=== PATIENT | female | born 1955 | race Caucasian/White ===

== ENCOUNTER 2016-11-14 07:55 | Inpatient (IN) | payer OTHER ==
[2016-11-14] MEDS ORDERED: SODIUM CHLORIDE 0.9% 1,000 ML IV STA ×2 (08:11→10:12)
[2016-11-14] MEDS ORDERED: LORazepam 2 MG/ML SYRINGE IV STA (08:11)
[2016-11-14] MEDS ORDERED: methylPREDNISolone SOD SUCCI 125 MG/2 ML VIAL IV STA (08:11)
[2016-11-14] MEDS ORDERED: IPRATROPIUM-ALBUTEROL 3 ML NEB INHALATION STA (08:11)
[2016-11-14] MEDS: LORazepam 2 MG/ML SYRINGE IV STA ×2 (08:13→08:30)
[2016-11-14 08:42] LABS: ABG HCO3 24 mmol/L (21-25); ABG PCO2 49 mmHg (35-45); ABG PO2 197 mmHg (83-108)
[2016-11-14 08:43] LABS: ABG Base Excess -1.8 mmol/L; ABG TCO2 25 mmol/L (19-24)
[2016-11-14 08:48] LABS: Basophils % (A) 0 %; CH 29.9; CHCM 31.5; Eosinophils % (A) 0 %; HCT 50.3 % (34.0-46.0); HGB 16.3 gm/dL (11.4-16.0); Hypochromasia Slight; Luc # (Auto) 0.13; Luc % (Auto) 2; Lymphocytes # (A) 0.7 k/uL (1.0-4.8); Lymphocytes % (A) 8 %; MCH 30.8 pg (25.0-35.0); MCHC 32.3 g/dL (31.0-37.0); MCV 95.3 fL (80.0-100.0); Mean Platelet Volume 7.9; Monocytes # (A) 0.4 k/uL (0-1.0); Monocytes % (A) 5 %; Neutrophils # (A) 7.1 k/uL (1.3-7.7); Neutrophils % (A) 84 %; RBC 5.28 m/uL (3.80-5.40); RDW 13.6 % (11.5-15.5); WBC 8.5 k/uL (3.8-10.6); WBC (Perox) 8.27
[2016-11-14 08:56] LABS: INR 1.1 (<1.1); Partial Thromboplastin Time 28.4 sec (22.0-30.0); Prothrombin Time 11.2 sec (9.0-12.0)
--- NOTE | 2016-11-14 09:03 | XR ---
EXAMINATION TYPE: XR chest 1V portable DATE OF EXAM: 11/14/2016 8:58 AM Comparison: 10/10/2015 Clinical History: 61-year-old female with sob. Findings: The heart is upper limits of normal in size. After cirrhotic arch calcifications. There is hyperinfla tion with mild diffuse interstitial prominence though interstitial densities appear slightly more sit uated from prior exam. No jess consolidation or significant pleural effusion seen. Bilateral nipple shadows. Impression: 1. COPD and borderline heart size. 2. Interstitial densities appear slightly more accentuated. Correlate for possibility of superimposed bronchitis or mild pulmonary vascular congestion.
[2016-11-14 09:16] LABS: Creatine Kinase MB 1.5 ng/mL (0.0-2.4); Troponin I 0.025 ng/mL (0.000-0.034)
[2016-11-14 09:32] LABS: ALT 31 U/L (9-52); AST 24 U/L (14-36); Alkaline Phosphatase 90 U/L (38-126); Anion Gap 10 mmol/L; Blood Urea Nitrogen 14 mg/dL (7-17); Calcium 8.9 mg/dL (8.4-10.2); Carbon Dioxide 30 mmol/L (22-30); Chloride 94 mmol/L (98-107); Glucose 120 mg/dL (74-99); Non-African American GFR(MDRD) >60 (>60 ml/min/1.73 sqM); Potassium 5.5 mmol/L (3.5-5.1); Sodium 134 mmol/L (137-145); Total Bilirubin 0.5 mg/dL (0.2-1.3); Total Protein 7.4 g/dL (6.3-8.2)
[2016-11-14] MEDS ORDERED: LEVOFLOXACIN 750MG-D5W PMX 750 MG in DEXTROSE/WATER 1 150ML.BAG IVPB STA (10:11)
--- NOTE | 2016-11-14 10:48 | CT ---
EXAMINATION TYPE: CT brain wo con DATE OF EXAM: 11/14/2016 10:39 AM COMPARISON: Previous study dated 07/31/2013 HISTORY: Patient poor historian. Patient unresponsive at time of exam. Patient "took too many pain pills," per family. CT DLP: 850 mGycm Automated exposure control for dose reduction was used. FINDINGS: Central structures are midline. There is no evidence of hydrocephalus. No acute focal lesion, mass ef fect or midline shift is seen. I do not see evidence of intracranial blood There is an air-fluid level in the right sphenoid sinus. The remaining paranasal sinuses and mastoids are clear. IMPRESSION: 1. NO ACUTE INTRACRANIAL ABNORMALITY. 2. ACUTE, RIGHT SPHENOID SINUSITIS.
[2016-11-14] MEDS ORDERED: NALOXONE 0.4 MG/ML 1 ML VIAL IV STA (10:54)
[2016-11-14] MEDS ORDERED: PROPOFOL 500 MG in EMPTY BAG 1 BAG IV ONE (11:43)
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
[2016-11-14] MEDS ORDERED: SUCCINYLCHOLINE CHLORIDE VIAL 200 MG/10 ML VIAL IV STA (11:53)
[2016-11-14] MEDS ORDERED: ETOMIDATE 2 MG/ML 10 ML VIAL IVP STA (11:53)
[2016-11-14] MEDS ORDERED: ARTIFICIAL TEARS-HYPROMELLOSE DROPS 15 ML BTL BOTH EYES PRN (12:08)
[2016-11-14] MEDS ORDERED: FLUTICASONE 50MCG/SPRAY NASAL 16GM EA NOSTRIL PRN (12:13)
[2016-11-14] MEDS ORDERED: PANTOPRAZOLE 40 MG/10 ML VIAL IV SCH (12:15)
[2016-11-14 12:33] LABS: Appearance,Urine Clear (Clear); Bilirubin,Urine Negative (Negative); Glucose,Urine (UA) Negative (Negative); Ketones,Urine Negative (Negative); Leukocyte Esterase,Urine Negative (Negative); Mucus,Urine Rare /hpf; Nitrite,Urine Negative (Negative); PH, Urine 5.5 (5.0-8.0); Particle Count 1549; Protein,Urine 1+ (Negative); RBC,Urine 2 /hpf (0-5); Specific Gravity,Urine 1.023 (1.001-1.035); UA Billing (MACRO vs. MICRO) MICRO; WBC,Urine 1 /hpf (0-5)
[2016-11-14] MEDS ORDERED: ALBUTEROL NEBULIZED 2.5 MG/3 ML INHALATION STA (12:43)
--- NOTE | 2016-11-14 12:46 | XR ---
EXAMINATION TYPE: XR chest 1V portable DATE OF EXAM: 11/14/2016 12:27 PM HISTORY: Verify placement. REFERENCE: Previous study dated 11/14/2016. FINDINGS: The patient has been intubated. ET tube is in satisfactory position with its tip approximat helga 4.7 cm above the archana. An NG tube is been placed. Its tip crosses the diaphragm but is not visu alized. The lungs are overinflated. Heart size is upper limits of normal. I do not see evidence of pneumonia or edema. No pleural fluid is seen. IMPRESSION: 1. SATISFACTORY ET TUBE PLACEMENT. 2. COPD. 3. BORDERLINE CARDIOMEGALY.
[2016-11-14 12:54] LABS: ABG Base Excess 1.7 mmol/L; ABG HCO3 28 mmol/L (21-25); ABG PCO2 66 mmHg (35-45); ABG PH 7.26 (7.35-7.45); ABG PO2 302 mmHg (83-108); ABG TCO2 30 mmol/L (19-24)
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
[2016-11-14] MEDS ORDERED: SODIUM CHLORIDE 0.9% 250 ML IV STA (13:47)
[2016-11-14] MEDS: methylPREDNISolone SOD SUCCI 125 MG/2 ML VIAL IV SCH ×2 (14:15→19:05)
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
[2016-11-14] MEDS: ENOXAPARIN 40 MG/0.4 ML SYRINGE SQ SCH (16:27)
[2016-11-14 17:01] LABS: Glucose,Whole Blood 139 mg/dL (75-99)
[2016-11-14] MEDS: PROPOFOL 500 MG in EMPTY BAG 1 BAG IV SCH ×2 (18:01→22:49)
[2016-11-14] MEDS ORDERED: INSULIN LISPRO (humaLOG) 300 UNIT/3 ML VIAL SQ SCH (19:15)
[2016-11-14] MEDS ORDERED: BECLOMETHASONE DIP 80 MCG/PUFF INHALER INHALATION SCH (20:00)
[2016-11-14] MEDS: CHLORHEXIDINE GLUCONATE 15 ML CUP MUCOUS MEM SCH (22:05)
[2016-11-14] MEDS: PANTOPRAZOLE 40 MG/10 ML VIAL IV SCH (22:50)
[2016-11-14 22:53] LABS: CH 30.1; CHCM 32.2; HCT 48.7 % (34.0-46.0); HDW 2.58; HGB 15.9 gm/dL (11.4-16.0); MCH 30.8 pg (25.0-35.0); MCHC 32.7 g/dL (31.0-37.0); MCV 94.1 fL (80.0-100.0); Mean Platelet Volume 7.7; RBC 5.17 m/uL (3.80-5.40); RDW 13.8 % (11.5-15.5); WBC 3.9 k/uL (3.8-10.6)
[2016-11-14 23:59] LABS: Glucose,Whole Blood 113 mg/dL (75-99)
[2016-11-15] MEDS: INSULIN LISPRO (humaLOG) 300 UNIT/3 ML VIAL SQ SCH ×4 (00:08→18:05)
[2016-11-15] MEDS: methylPREDNISolone SOD SUCCI 125 MG/2 ML VIAL IV SCH ×4 (00:24→18:06)
[2016-11-15] MEDS: PROPOFOL 500 MG in EMPTY BAG 1 BAG IV SCH ×2 (04:22→07:53)
[2016-11-15 04:26] LABS: ABG Base Excess 2.9 mmol/L; ABG HCO3 27 mmol/L (21-25); ABG PCO2 44 mmHg (35-45); ABG PH 7.41 (7.35-7.45); ABG PO2 149 mmHg (83-108); ABG TCO2 29 mmol/L (19-24)
[2016-11-15 04:33] LABS: Basophils # (A) 0.1 k/uL (0-0.2); Basophils % (A) 1 %; CH 30.3; CHCM 32.3; Eosinophils % (A) 0 %; HCT 50.7 % (34.0-46.0); HDW 2.54; HGB 16.4 gm/dL (11.4-16.0); Luc # (Auto) 0.07; Luc % (Auto) 2; Lymphocytes # (A) 0.8 k/uL (1.0-4.8); Lymphocytes % (A) 18 %; MCH 30.4 pg (25.0-35.0); MCHC 32.2 g/dL (31.0-37.0); MCV 94.4 fL (80.0-100.0); Mean Platelet Volume 7.7; Monocytes # (A) 0.3 k/uL (0-1.0); Monocytes % (A) 7 %; Neutrophils % (A) 72 %; RBC 5.38 m/uL (3.80-5.40); RDW 13.9 % (11.5-15.5); WBC 4.1 k/uL (3.8-10.6); WBC (Perox) 3.94
[2016-11-15 04:44] LABS: Anion Gap 7 mmol/L; Blood Urea Nitrogen 11 mg/dL (7-17); Carbon Dioxide 29 mmol/L (22-30); Chloride 101 mmol/L (98-107); Glucose 121 mg/dL (74-99); Magnesium 1.6 mg/dL (1.6-2.3); Non-African American GFR(MDRD) >60 (>60 ml/min/1.73 sqM); Phosphorous 3.4 mg/dL (2.5-4.5); Potassium 4.7 mmol/L (3.5-5.1); Sodium 137 mmol/L (137-145)
[2016-11-15] MEDS ORDERED: Magnesium Replacement Protocol 1 EACH MISC MISCELLANE PRN (05:58)
[2016-11-15 06:42] LABS: Glucose,Whole Blood 110 mg/dL (75-99)
[2016-11-15] MEDS: MAGNESIUM SULFATE-D5W PMX 1 GM in DEXTROSE/WATER 1 100ML.BAG IVPB SCH ×2 (06:42→07:54)
[2016-11-15] MEDS: IPRATROPIUM-ALBUTEROL 3 ML NEB INHALATION PRN ×3 (07:38→18:21)
[2016-11-15] MEDS: PANTOPRAZOLE 40 MG/10 ML VIAL IV SCH (07:55)
[2016-11-15] MEDS ORDERED: TIOTROPIUM 18 MCG/PUFF INHALER INHALATION SCH (08:00)
[2016-11-15] MEDS: ENOXAPARIN 40 MG/0.4 ML SYRINGE SQ SCH (08:01)
--- NOTE | 2016-11-15 08:23 | XR ---
EXAMINATION TYPE: XR chest 1V portable DATE OF EXAM: 11/15/2016 6:55 AM COMPARISON: 11/14/2016 INDICATION: Difficulty breathing line placement TECHNIQUE: Single frontal view of the chest is obtained. FINDINGS: The heart size is normal. The pulmonary vasculature is normal. The lungs are clear. Endotracheal tube and nasogastric tube persist stable in position. IMPRESSION: 1. No acute pulmonary process. 2. Lines and catheters discussed above.
--- NOTE | 2016-11-15 09:27 | P.PN ---
Subjective 61-year-old female patient who presented to the emergency department after being found obtunded and unresponsive by her son. I can't understand that the patient's has been admitted to our ICU with respiratory failure. The patient accordingly was abusing her narcotic medication and she has a history of doing so. Based on the pill count, the patient has taken excessive amount of morphine 15 mg and [place] 10 mg and she was found to be unresponsive at home. EMS found the patient hypoxic with a pulse ox of around 50% and she was placed on 100% nonrebreather facemask. She was also given Narcan. The same was done in the emergency department here the patient became more responsive yet more agitated. At the later stage patient became more short of breath and she started getting more hypoxic. At that point she was intubated and placed on a mechanical ventilator and pulmonary and critical care consultation was obtained I saw the patient in the emergency department. She was sedated with Diprivan. She was hemodynamically stable. She was withdrawing to painful stimuli only and she was able to move all 4 extremities to deep painful stimuli. She was in a mechanical ventilator and she was having frothy rest or secretions. The patient was an assist-control mode at the rate of 14, tidal volume 450, FiO2 of 100% and PEEP of 5. The peak airway pressure was around 48 with a static pressure of around 16. Blood gases showed a component of hypercapnic respiratory failure. There chest x-ray showed adequate positioning of the ET tube. Some increased interstitial markings could be related to early CHF versus chronic bronchitis. No clear-cut history of aspiration. No consolidation or airspace disease. CAT scan of the brain was done and showed no acute abnormalities. No seizure activity has been noted. The patient is known to have COPD. She was also known to have chronic narcotic medication abuse. On 11/15/2016 I'm seeing this patient in follow-up. The patient got moved to the intensive care unit. Further discussion with the family and the son mated less clear whether the patient had a clear-cut drug overdose. Apparently the pill count was incorrect and the patient probably was taken appropriate doses of narcotic medication. Nevertheless there is also benzodiazepines in her urine drug screen and it's possibly that both narcotics and benzos contribute to respiratory failure. The patient was quite bronchospastic and her pressures were significantly elevated post intubation. Initial peak airway pressure was above 45. She was treated with bronchodilators and steroids throughout the past 12 hours and currently her peak air pressures down to 26 and there is no significant ROP. Chest x-ray shows hyperinflation and the tube is in good location there is no evidence of any acute pulmonary infiltration or pneumonia. The patient is on Diprivan drip for sedation. The patient has remained hemodynamically stable. Urine output is approximately 50 mL an hour. Otherwise no other significant events over the past12 hours. Objective - Vital Signs Vital signs: Vital Signs Temp 98 F 11/15/16 04:00 Pulse 72 11/15/16 08:02 Resp 15 11/15/16 06:00 BP 146/90 11/15/16 06:00 Pulse Ox 98 11/15/16 06:00 Intake & Output 11/14/16 11/15/16 11/15/16 18:59 06:59 18:59 Intake Total 089.437 4399.168 347.827 Output Total 875 1050 170 Balance -661.079 239.168 177.827 Weight 46.3 kg 46.6 kg Intake: Intake, IV Titration 044.306 4529.168 347.827 Amount Magnesium Sulfate-D5w Pmx 200 1 gm In Dextrose/Water 1 100ml.bag @ 100 mls/hr IVPB Q1H ROXY Rx#: [id number] Propofol 500 mg In Empty 13.921 Bag 1 bag @ Titrate IV . Q0M ONE Rx#:[id number] Propofol 500 mg In Empty 89.168 47.827 Bag 1 bag @ Titrate IV . Q0M ROXY Rx#:[id number] Sodium Chloride 0.9% 1, 200 1200 100 000 ml @ 100 mls/hr IV . Q10H STA Rx#:[id number] Output: Gastric Drainage 250 Urine 875 800 170 Other: Voiding Method Indwelling Catheter Indwelling Catheter Indwelling Catheter - Exam Head exam was generally normal. There was no scleral icterus or corneal arcus. Mucous membranes were moist. The patient has an orogastric and orotracheal tube are both in place.Neck was supple and without jugular venous distension, thyromegaly, or carotid bruits. Carotids were easily palpable bilaterally. There was no adenopathy. Lung sounds are diminished bilaterally along with some few scattered expiratory wheeze.Cardiac exam revealed the PMI to be normally situated and sized. The rhythm was regular and no extrasystoles were noted during several minutes of auscultation. The first and second heart sounds were normal and physiologic splitting of the second heart sound was noted. There were no murmurs, rubs, clicks, or gallops.Abdominal exam revealed normal bowel sounds. The abdomen was soft, non-tender, and without masses, organomegaly , or appreciable enlargement of the abdominal aorta.Examination of the extremities revealed easily palpable radial, femoral and pedal pulses. There was no cyanosis, clubbing or edema. Neurologically, pupils are equal and reactive to light around 3 mm in size. No nystagmus. No facial asymmetry. She has a good cough and a gag reflex. She is moving all 4 extremities and deep painful stimuli. - Labs CBC & Chem 7: 11/15/16 04:20 11/15/16 04:20 Labs: Abnormal Lab Results - Last 24 Hours (Table) 11/14/16 11/14/16 11/14/16 Range/Units 12:30 16:41 22:25 Hgb (11.4-16.0) gm/dL Hct 48.7 H (34.0-46.0) % Plt Count 149 L (150-450) k/uL Lymphocytes # (1.0-4.8) k/uL ABG pH 7.26 L (7.35-7.45) ABG pCO2 66 H (35-45) mmHg ABG pO2 302 H (83-108) mmHg ABG HCO3 28 H (21-25) mmol/L ABG Total CO2 30 H (19-24) mmol/L ABG O2 Saturation 100.0 H (94-97) % Creatinine (0.52-1.04) mg/dL Glucose (74-99) mg/dL POC Glucose (mg/dL) 139 H (75-99) mg/dL 11/14/16 11/15/16 11/15/16 Range/Units 23:57 04:08 04:20 Hgb 16.4 H (11.4-16.0) gm/dL Hct 50.7 H (34.0-46.0) % Plt Count 141 L (150-450) k/uL Lymphocytes # 0.8 L (1.0-4.8) k/uL ABG pH (7.35-7.45) ABG pCO2 (35-45) mmHg ABG pO2 149 H (83-108) mmHg ABG HCO3 27 H (21-25) mmol/L ABG Total CO2 29 H (19-24) mmol/L ABG O2 Saturation 99.0 H (94-97) % Creatinine (0.52-1.04) mg/dL Glucose (74-99) mg/dL POC Glucose (mg/dL) 113 H (75-99) mg/dL 11/15/16 11/15/16 Range/Units 04:20 06:41 Hgb (11.4-16.0) gm/dL Hct (34.0-46.0) % Plt Count (150-450) k/uL Lymphocytes # (1.0-4.8) k/uL ABG pH (7.35-7.45) ABG pCO2 (35-45) mmHg ABG pO2 (83-108) mmHg ABG HCO3 (21-25) mmol/L ABG Total CO2 (19-24) mmol/L ABG O2 Saturation (94-97) % Creatinine 0.33 L (0.52-1.04) mg/dL Glucose 121 H (74-99) mg/dL POC Glucose (mg/dL) 110 H (75-99) mg/dL Assessment and Plan Plan: Assessment 1 acute respiratory failure, secondary to COPD exacerbation addition to some contribution from various drugs including opiates and benzodiazepines. Patient is less spastic and wheezy. Airway pressures are improved compared to yesterday. The patient was treated with a combination of bronchodilators and steroids. She is also covered with empiric antibiotics. Today's chest x-ray is showing hyperinflation and it's clear. 2 altered mental status secondary to above, CAT scan of the brain is negative 3 chronic intake of narcotic medications for pain control in addition to benzodiazepines. Rule out possibility of drug intoxication/overdose 4 COPD 5 acute hypercapnic respiratory failure. This is essentially due to narcotic overdose yet even after intubating dictation the patient continued to have a component of hypercapnia and respiratory acidosis along with elevated airway pressures. I think is an obvious component of COPD exacerbation in addition. 6 smoker 7 anxiety/depression 8 chronic hepatitis C viral infection of the liver 9 chronic skeletal pain along with narcotic medication dependence. Plan Stop the Diprivan. Check consider weaning parameters once the patient is awake. Give the patient is point is breathing trial with a pressure support of 5 and PEEP of 5 and repeat the blood gases. If adequate, the patient be extubated today. Continue bronchodilators. Continue the steroids. Condition is critical still in the patient will be kept in ICU even if extubated. There is a critically care evaluation that was done in 35min and te family was updated. Time with Patient: Greater than 30
[2016-11-15 10:45] VITALS: BMI 17.6
[2016-11-15] MEDS: LEVOFLOXACIN 750MG-D5W PMX 750 MG in DEXTROSE/WATER 1 150ML.BAG IVPB SCH (10:47)
--- NOTE | 2016-11-15 11:11 | P.PN ---
Subjective Patient is still intubated. She is having a weaning trial this morning. No events overnight. Objective - Vital Signs Vital signs: Vital Signs Temp 98.0 F 11/15/16 08:00 Pulse 76 11/15/16 10:00 Resp 23 11/15/16 10:00 BP 149/88 11/15/16 10:00 Pulse Ox 100 11/15/16 10:00 Intake & Output 11/14/16 11/15/16 11/15/16 18:59 06:59 18:59 Intake Total 685.412 6700.168 347.827 Output Total 875 1050 170 Balance -661.079 239.168 177.827 Weight 46.3 kg 46.6 kg 46.6 kg Intake: Intake, IV Titration 249.351 7308.168 347.827 Amount Magnesium Sulfate-D5w Pmx 200 1 gm In Dextrose/Water 1 100ml.bag @ 100 mls/hr IVPB Q1H ROXY Rx#: [id number] Propofol 500 mg In Empty 13.921 Bag 1 bag @ Titrate IV . Q0M ONE Rx#:[id number] Propofol 500 mg In Empty 89.168 47.827 Bag 1 bag @ Titrate IV . Q0M ROXY Rx#:[id number] Sodium Chloride 0.9% 1, 200 1200 100 000 ml @ 100 mls/hr IV . Q10H STA Rx#:[id number] Output: Gastric Drainage 250 Urine 875 800 170 Other: Voiding Method Indwelling Catheter Indwelling Catheter Indwelling Catheter - Exam General: The patient is intubated. She appeared agitated. Eye: there is normal conjunctiva bilaterally. Neck: The neck is supple, there is no JVD. Cardiovascular: Normal S1-S2, no S3-S4, no murmurs. Respiratory: Lungs clear to auscultation bilaterally Gastrointestinal: Abdomen is soft, nontender Musculoskeletal: There is no pedal edema. Skin: Skin is warm and dry - Labs CBC & Chem 7: 11/15/16 04:20 11/15/16 04:20 Labs: Abnormal Lab Results - Last 24 Hours (Table) 11/14/16 11/14/16 11/14/16 Range/Units 12:30 16:41 22:25 Hgb (11.4-16.0) gm/dL Hct 48.7 H (34.0-46.0) % Plt Count 149 L (150-450) k/uL Lymphocytes # (1.0-4.8) k/uL ABG pH 7.26 L (7.35-7.45) ABG pCO2 66 H (35-45) mmHg ABG pO2 302 H (83-108) mmHg ABG HCO3 28 H (21-25) mmol/L ABG Total CO2 30 H (19-24) mmol/L ABG O2 Saturation 100.0 H (94-97) % Creatinine (0.52-1.04) mg/dL Glucose (74-99) mg/dL POC Glucose (mg/dL) 139 H (75-99) mg/dL 11/14/16 11/15/16 11/15/16 Range/Units 23:57 04:08 04:20 Hgb 16.4 H (11.4-16.0) gm/dL Hct 50.7 H (34.0-46.0) % Plt Count 141 L (150-450) k/uL Lymphocytes # 0.8 L (1.0-4.8) k/uL ABG pH (7.35-7.45) ABG pCO2 (35-45) mmHg ABG pO2 149 H (83-108) mmHg ABG HCO3 27 H (21-25) mmol/L ABG Total CO2 29 H (19-24) mmol/L ABG O2 Saturation 99.0 H (94-97) % Creatinine (0.52-1.04) mg/dL Glucose (74-99) mg/dL POC Glucose (mg/dL) 113 H (75-99) mg/dL 11/15/16 11/15/16 Range/Units 04:20 06:41 Hgb (11.4-16.0) gm/dL Hct (34.0-46.0) % Plt Count (150-450) k/uL Lymphocytes # (1.0-4.8) k/uL ABG pH (7.35-7.45) ABG pCO2 (35-45) mmHg ABG pO2 (83-108) mmHg ABG HCO3 (21-25) mmol/L ABG Total CO2 (19-24) mmol/L ABG O2 Saturation (94-97) % Creatinine 0.33 L (0.52-1.04) mg/dL Glucose 121 H (74-99) mg/dL POC Glucose (mg/dL) 110 H (75-99) mg/dL Assessment and Plan Plan: 1. Acute hypoxic and hypercapnic respiratory failure 2. Acute bacterial bronchitis: On Levaquin 3. Acute exacerbation of underlying COPD 4. Suspected opiate overdose: With no evidence of patient taking more than what prescribed 5. Paroxysmal atrial fibrillation: heart rate well controlled. Not a candidate for anticoagulation for history of heavy bleeding. Continue aspirin daily. 6. Chronic hepatitis C 7. Degenerative joint disease of the lumbar spine with multiple disc bulging at multiple levels: Maintained chronically on morphine sulfate ER 15 mg twice daily and [place] 4 times a day as needed. I would down escalate her regimen 8. GI and DVT prophylaxis Today, I reviewed her medication list. Continue IV steroids and bronchodilator. Continue ICU care. Weaning trial this morning. Continue Levaquin for now. Repeat chest x-ray within the next day or 2. Continue supportive care otherwise. Repeat lab work in the morning. I would continue to follow up on her closely.
[2016-11-15 12:01] LABS: Glucose,Whole Blood 111 mg/dL (75-99)
[2016-11-15 12:36] LABS: ABG PH 7.37 (7.35-7.45)
[2016-11-15 12:37] LABS: ABG Base Excess 4.6 mmol/L; ABG HCO3 30 mmol/L (21-25); ABG PCO2 53 mmHg (35-45); ABG PO2 117 mmHg (83-108); ABG TCO2 31 mmol/L (19-24)
[2016-11-15 13:09] LABS: Hemoglobin A1C 5.3 % (4.2-6.1)
[2016-11-15] MEDS: CHLORHEXIDINE GLUCONATE 15 ML CUP MUCOUS MEM SCH (14:02)
[2016-11-15] MEDS ORDERED: HYDROcodone/APAP 10-325MG 1 EACH TAB PO PRN (14:26)
[2016-11-15 18:04] LABS: Glucose,Whole Blood 98 mg/dL (75-99)
[2016-11-15] MEDS ORDERED: DILTIAZEM CD 120 MG CAP.ER.24H PO STA (18:48)
[2016-11-15] MEDS: HYDROcodone/APAP 10-325MG 1 EACH TAB PO PRN (19:47)
[2016-11-15] MEDS: ALPRAZolam 0.25 MG TAB PO PRN (20:11)
[2016-11-16] MEDS: PANTOPRAZOLE 40 MG/10 ML VIAL IV SCH ×2 (00:52→09:21)
[2016-11-16 00:53] LABS: Glucose,Whole Blood 124 mg/dL (75-99)
[2016-11-16] MEDS: INSULIN LISPRO (humaLOG) 300 UNIT/3 ML VIAL SQ SCH ×5 (00:53→20:26)
[2016-11-16] MEDS: methylPREDNISolone SOD SUCCI 125 MG/2 ML VIAL IV SCH ×3 (00:53→11:34)
[2016-11-16] MEDS: HYDROcodone/APAP 10-325MG 1 EACH TAB PO PRN ×4 (01:33→20:55)
[2016-11-16] MEDS: IPRATROPIUM-ALBUTEROL 3 ML NEB INHALATION PRN ×5 (03:09→21:20)
[2016-11-16 05:08] LABS: Basophils % (A) 0 %; CH 29.6; CHCM 30.7; Eosinophils % (A) 0 %; HCT 47.1 % (34.0-46.0); HDW 2.53; HGB 15.2 gm/dL (11.4-16.0); Hypochromasia Slight; Luc # (Auto) 0.08; Luc % (Auto) 1; Lymphocytes # (A) 0.5 k/uL (1.0-4.8); Lymphocytes % (A) 7 %; MCH 31.3 pg (25.0-35.0); MCHC 32.3 g/dL (31.0-37.0); MCV 96.9 fL (80.0-100.0); Mean Platelet Volume 7.9; Monocytes # (A) 0.3 k/uL (0-1.0); Monocytes % (A) 5 %; Neutrophils # (A) 5.5 k/uL (1.3-7.7); Neutrophils % (A) 86 %; RBC 4.86 m/uL (3.80-5.40); RDW 13.9 % (11.5-15.5); WBC 6.3 k/uL (3.8-10.6); WBC (Perox) 6.35
[2016-11-16 05:30] LABS: Anion Gap 6 mmol/L; Blood Urea Nitrogen 13 mg/dL (7-17); Calcium 8.9 mg/dL (8.4-10.2); Carbon Dioxide 33 mmol/L (22-30); Chloride 100 mmol/L (98-107); Glucose 125 mg/dL (74-99); Magnesium 1.8 mg/dL (1.6-2.3); Non-African American GFR(MDRD) >60 (>60 ml/min/1.73 sqM); Phosphorous 3.6 mg/dL (2.5-4.5); Potassium 4.3 mmol/L (3.5-5.1); Sodium 139 mmol/L (137-145)
[2016-11-16] MEDS ORDERED: Magnesium Replacement Protocol 1 EACH MISC MISCELLANE PRN (07:02)
[2016-11-16 08:04] LABS: Glucose,Whole Blood 166 mg/dL (75-99)
[2016-11-16] MEDS: MAGNESIUM SULFATE-D5W PMX 1 GM in DEXTROSE/WATER 1 100ML.BAG IVPB SCH ×2 (09:16→11:33)
[2016-11-16] MEDS: ENOXAPARIN 40 MG/0.4 ML SYRINGE SQ SCH (09:21)
[2016-11-16] MEDS: LEVOFLOXACIN 750MG-D5W PMX 750 MG in DEXTROSE/WATER 1 150ML.BAG IVPB SCH ×2 (09:23→11:31)
--- NOTE | 2016-11-16 09:55 | P.PN ---
Subjective 61-year-old female patient who presented to the emergency department after being found obtunded and unresponsive by her son. I can't understand that the patient's has been admitted to our ICU with respiratory failure. The patient accordingly was abusing her narcotic medication and she has a history of doing so. Based on the pill count, the patient has taken excessive amount of morphine 15 mg and [place] 10 mg and she was found to be unresponsive at home. EMS found the patient hypoxic with a pulse ox of around 50% and she was placed on 100% nonrebreather facemask. She was also given Narcan. The same was done in the emergency department here the patient became more responsive yet more agitated. At the later stage patient became more short of breath and she started getting more hypoxic. At that point she was intubated and placed on a mechanical ventilator and pulmonary and critical care consultation was obtained I saw the patient in the emergency department. She was sedated with Diprivan. She was hemodynamically stable. She was withdrawing to painful stimuli only and she was able to move all 4 extremities to deep painful stimuli. She was in a mechanical ventilator and she was having frothy rest or secretions. The patient was an assist-control mode at the rate of 14, tidal volume 450, FiO2 of 100% and PEEP of 5. The peak airway pressure was around 48 with a static pressure of around 16. Blood gases showed a component of hypercapnic respiratory failure. There chest x-ray showed adequate positioning of the ET tube. Some increased interstitial markings could be related to early CHF versus chronic bronchitis. No clear-cut history of aspiration. No consolidation or airspace disease. CAT scan of the brain was done and showed no acute abnormalities. No seizure activity has been noted. The patient is known to have COPD. She was also known to have chronic narcotic medication abuse. On 11/15/2016 I'm seeing this patient in follow-up. The patient got moved to the intensive care unit. Further discussion with the family and the son mated less clear whether the patient had a clear-cut drug overdose. Apparently the pill count was incorrect and the patient probably was taken appropriate doses of narcotic medication. Nevertheless there is also benzodiazepines in her urine drug screen and it's possibly that both narcotics and benzos contribute to respiratory failure. The patient was quite bronchospastic and her pressures were significantly elevated post intubation. Initial peak airway pressure was above 45. She was treated with bronchodilators and steroids throughout the past 12 hours and currently her peak air pressures down to 26 and there is no significant ROP. Chest x-ray shows hyperinflation and the tube is in good location there is no evidence of any acute pulmonary infiltration or pneumonia. The patient is on Diprivan drip for sedation. The patient has remained hemodynamically stable. Urine output is approximately 50 mL an hour. Otherwise no other significant events over the past12 hours. She is seen again today 11/16/2016 in follow-up in the intensive care unit. She was successfully extubated yesterday afternoon. She is awake and alert in no acute distress. She does state she took an extra pain pill the day she arrived because she was having significant pain and she wanted to come to the hospital to visit her . She is aware of the cautious use based on her pulmonary status. Currently she denies any shortness of breath, cough or congestion. She is maintaining good O2 saturations in the 90s on 4 L/m per nasal cannula. Her blood cultures and sputum cultures revealed no growth. She is sitting up in bed and eating a breakfast. She is less tachycardic today. She is hemodynamically stable. She is afebrile. No leukocytosis. Objective - Vital Signs Vital signs: Vital Signs Temp 97.6 F 11/16/16 04:00 Pulse 66 11/16/16 07:40 Resp 20 11/16/16 07:00 BP 147/75 11/16/16 07:00 Pulse Ox 96 11/16/16 07:00 Intake & Output 11/15/16 11/16/16 11/16/16 18:59 06:59 18:59 Intake Total 9533.430 3552 340 Output Total 870 835 125 Balance 545.536 4532 215 Weight 46.6 kg 47.6 kg Intake: IV 100 1200 100 NS 100 1200 100 Intake, IV Titration 1197.827 Amount Levofloxacin 750Mg-D5w 150 Pmx 750 mg In Dextrose/ Water 1 150ml.bag @ 100 mls/hr IVPB DAILY [facility] Rx# :[id number] Magnesium Sulfate-D5w Pmx 200 1 gm In Dextrose/Water 1 100ml.bag @ 100 mls/hr IVPB Q1H [facility] Rx#: [id number] Propofol 500 mg In Empty 47.827 Bag 1 bag @ Titrate IV . Q0M [facility] Rx#:[id number] Sodium Chloride 0.9% 1, 800 000 ml @ 100 mls/hr IV . Q10H [facility] Rx#:[id number] Oral 720 240 Output: Urine 870 835 125 Other: Voiding Method Indwelling Catheter Indwelling Catheter - Exam GENERAL EXAM: Alert, comfortable in no apparent distress. HEAD: Normocephalic. EYES: Normal reaction of pupils, equal size. NOSE: Clear with pink turbinates. THROAT: No erythema or exudates. NECK: No masses, no JVD. CHEST: No chest wall deformity. LUNGS: Equal air entry with faint end expiratory wheeze. Diminished. CVS: S1 and S2 normal with no audible murmurs, regular rhythm. ABDOMEN: No hepatosplenomegaly, normal bowel sounds, no guarding or rigidity. Extremities: There is no peripheral edema. No clubbing, no cyanosis. Peripheral pulses are intact. - Labs CBC & Chem 7: 11/16/16 04:14 11/16/16 04:14 Labs: Abnormal Lab Results - Last 24 Hours (Table) 11/15/16 11/15/16 11/16/16 Range/Units 11:57 12:32 00:51 Hct (34.0-46.0) % Plt Count (150-450) k/uL Lymphocytes # (1.0-4.8) k/uL ABG pCO2 53 H (35-45) mmHg ABG pO2 117 H (83-108) mmHg ABG HCO3 30 H (21-25) mmol/L ABG Total CO2 31 H (19-24) mmol/L ABG O2 Saturation 98.0 H (94-97) % Carbon Dioxide (22-30) mmol/L Creatinine (0.52-1.04) mg/dL Glucose (74-99) mg/dL POC Glucose (mg/dL) 111 H 124 H (75-99) mg/dL 11/16/16 11/16/16 11/16/16 Range/Units 04:14 04:14 08:02 Hct 47.1 H (34.0-46.0) % Plt Count 137 L (150-450) k/uL Lymphocytes # 0.5 L (1.0-4.8) k/uL ABG pCO2 (35-45) mmHg ABG pO2 (83-108) mmHg ABG HCO3 (21-25) mmol/L ABG Total CO2 (19-24) mmol/L ABG O2 Saturation (94-97) % Carbon Dioxide 33 H (22-30) mmol/L Creatinine 0.40 L (0.52-1.04) mg/dL Glucose 125 H (74-99) mg/dL POC Glucose (mg/dL) 166 H (75-99) mg/dL Assessment and Plan Plan: Assessment 1 Acute respiratory failure, secondary to COPD exacerbation addition to some contribution from various drugs including opiates and benzodiazepines. Patient is less spastic and wheezy. Airway pressures are improved compared to yesterday. The patient was treated with a combination of bronchodilators and steroids. She is also covered with empiric antibiotics. Today's chest x-ray is showing hyperinflation and it's clear. On 11/16/2016 she is awake and alert in no acute distress. She successfully extubated yesterday. She is maintaining good O2 saturations in the 90s on 4 L/ m per nasal cannula. 2 Altered mental status secondary to above, CAT scan of the brain is negative. Recovered. 3 Chronic intake of narcotic medications for pain control in addition to benzodiazepines. Rule out possibility of drug intoxication/overdose with the patient does admit to taking extra pain pill the day of her arrival. 4 COPD 5 Acute hypercapnic respiratory failure. This is essentially due to narcotic overdose yet even after intubating dictation the patient continued to have a component of hypercapnia and respiratory acidosis along with elevated airway pressures. I think is an obvious component of COPD exacerbation in addition. 6 Smoker 7 Anxiety/depression 8 Chronic hepatitis C viral infection of the liver 9 Chronic skeletal pain along with narcotic medication dependence. Plan The patient was seen and evaluated by Dr. Raphael. She is currently stable from the pulmonary and critical care standpoint. She can be transferred out of the intensive care unit today. We'll continue with her current medications including bronchodilators, IV Solu-Medrol, empiric antibiotics in the form of Levaquin. We will continue to follow and make further recommendations based on her clinical status.
[2016-11-16] MEDS: ALPRAZolam 0.25 MG TAB PO PRN ×3 (11:29→20:56)
--- NOTE | 2016-11-16 11:43 | P.PN ---
Subjective Patient is doing well today. She is awake and alert. She denies any shortness of breath. She continues to complain of back pain. Objective - Vital Signs Vital signs: Vital Signs Temp 97.6 F 11/16/16 04:00 Pulse 66 11/16/16 07:40 Resp 20 11/16/16 07:00 BP 147/75 11/16/16 07:00 Pulse Ox 96 11/16/16 07:00 Intake & Output 11/15/16 11/16/16 11/16/16 18:59 06:59 18:59 Intake Total 8472.540 8917 1240 Output Total 870 835 400 Balance 287.050 2750 840 Weight 46.6 kg 47.6 kg Intake: IV 100 1200 400 NS 100 1200 400 Intake, IV Titration 1197.827 100 Amount Levofloxacin 750Mg-D5w 150 Pmx 750 mg In Dextrose/ Water 1 150ml.bag @ 100 mls/hr IVPB DAILY [facility] Rx# :[id number] Magnesium Sulfate-D5w Pmx 200 1 gm In Dextrose/Water 1 100ml.bag @ 100 mls/hr IVPB Q1H [facility] Rx#: [id number] Magnesium Sulfate-D5w Pmx 100 1 gm In Dextrose/Water 1 100ml.bag @ 100 mls/hr IVPB Q1H [facility] Rx#: [id number] Propofol 500 mg In Empty 47.827 Bag 1 bag @ Titrate IV . Q0M [facility] Rx#:[id number] Sodium Chloride 0.9% 1, 800 000 ml @ 100 mls/hr IV . Q10H [facility] Rx#:[id number] Oral 720 740 Output: Urine 870 835 400 Other: Voiding Method Indwelling Catheter Indwelling Catheter - Exam General: The patient is awake and alert, in no distress Eye: there is normal conjunctiva bilaterally. Neck: The neck is supple, there is no JVD. Cardiovascular: Normal S1-S2, no S3-S4, no murmurs. Respiratory: Lungs clear to auscultation bilaterally Gastrointestinal: Abdomen is soft, nontender Musculoskeletal: There is no pedal edema. Neurological:. Speech is normal. Skin: Skin is warm and dry - Labs CBC & Chem 7: 11/16/16 04:14 11/16/16 04:14 Labs: Abnormal Lab Results - Last 24 Hours (Table) 11/15/16 11/15/16 11/16/16 Range/Units 11:57 12:32 00:51 Hct (34.0-46.0) % Plt Count (150-450) k/uL Lymphocytes # (1.0-4.8) k/uL ABG pCO2 53 H (35-45) mmHg ABG pO2 117 H (83-108) mmHg ABG HCO3 30 H (21-25) mmol/L ABG Total CO2 31 H (19-24) mmol/L ABG O2 Saturation 98.0 H (94-97) % Carbon Dioxide (22-30) mmol/L Creatinine (0.52-1.04) mg/dL Glucose (74-99) mg/dL POC Glucose (mg/dL) 111 H 124 H (75-99) mg/dL 11/16/16 11/16/16 11/16/16 Range/Units 04:14 04:14 08:02 Hct 47.1 H (34.0-46.0) % Plt Count 137 L (150-450) k/uL Lymphocytes # 0.5 L (1.0-4.8) k/uL ABG pCO2 (35-45) mmHg ABG pO2 (83-108) mmHg ABG HCO3 (21-25) mmol/L ABG Total CO2 (19-24) mmol/L ABG O2 Saturation (94-97) % Carbon Dioxide 33 H (22-30) mmol/L Creatinine 0.40 L (0.52-1.04) mg/dL Glucose 125 H (74-99) mg/dL POC Glucose (mg/dL) 166 H (75-99) mg/dL Assessment and Plan Plan: 1. Acute hypoxic and hypercapnic respiratory failure 2. Acute bacterial bronchitis: On Levaquin 3. Acute exacerbation of underlying COPD 4. Opiate overdose: Patient admitted that she took one extra [place]. 5. Paroxysmal atrial fibrillation: heart rate well controlled. Not a candidate for anticoagulation for history of heavy bleeding. Continue aspirin daily. 6. Chronic hepatitis C 7. 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 I would down escalate her regimen 8. GI and DVT prophylaxis Today, I reviewed her medication list. Continue IV steroids and bronchodilator. Continue Levaquin. Repeat chest x-ray within the next day or 2. Continue supportive care otherwise. Transferred outside of the intensive care unit to a [facility] general [facility] units. Repeat lab work in the morning. I would continue to follow up on her closely.
[2016-11-16 12:56] LABS: Glucose,Whole Blood 130 mg/dL (75-99)
[2016-11-16] MEDS: methylPREDNISolone SOD SUCCI 40 MG/ML 1 ML VIAL IV SCH ×2 (17:34→23:17)
[2016-11-16 18:25] LABS: Glucose,Whole Blood 181 mg/dL (75-99)
[2016-11-16] MEDS: FAMOTIDINE 20 MG TAB PO SCH (18:39)
[2016-11-16 20:28] LABS: Glucose,Whole Blood 200 mg/dL (75-99)
[2016-11-16] MEDS: DILTIAZEM CD 120 MG CAP.ER.24H PO SCH (22:24)
[2016-11-17] MEDS: HYDROcodone/APAP 10-325MG 1 EACH TAB PO PRN ×4 (03:05→21:47)
[2016-11-17 05:38] LABS: Basophils % (A) 0 %; CH 29.7; CHCM 30.3; Eosinophils % (A) 0 %; HCT 47.2 % (34.0-46.0); HGB 15.1 gm/dL (11.4-16.0); Hypochromasia Moderate; Luc # (Auto) 0.24; Luc % (Auto) 3; Lymphocytes # (A) 0.8 k/uL (1.0-4.8); Lymphocytes % (A) 9 %; MCH 31.5 pg (25.0-35.0); MCV 98.5 fL (80.0-100.0); Mean Platelet Volume 7.9; Monocytes # (A) 0.5 k/uL (0-1.0); Monocytes % (A) 6 %; Neutrophils # (A) 6.7 k/uL (1.3-7.7); Neutrophils % (A) 82 %; RDW 13.7 % (11.5-15.5); WBC 8.2 k/uL (3.8-10.6); WBC (Perox) 8.34
[2016-11-17 06:10] LABS: Anion Gap 7 mmol/L; Blood Urea Nitrogen 8 mg/dL (7-17); Calcium 8.6 mg/dL (8.4-10.2); Carbon Dioxide 34 mmol/L (22-30); Chloride 96 mmol/L (98-107); Glucose 102 mg/dL (74-99); Magnesium 1.9 mg/dL (1.6-2.3); Non-African American GFR(MDRD) >60 (>60 ml/min/1.73 sqM); Phosphorous 3.6 mg/dL (2.5-4.5); Potassium 5.2 mmol/L (3.5-5.1); Sodium 137 mmol/L (137-145)
[2016-11-17] MEDS ORDERED: Magnesium Replacement Protocol 1 EACH MISC MISCELLANE PRN (06:34)
[2016-11-17 07:25] LABS: Glucose,Whole Blood 104 mg/dL (75-99)
[2016-11-17] MEDS: IPRATROPIUM-ALBUTEROL 3 ML NEB INHALATION PRN ×4 (07:32→20:01)
[2016-11-17] MEDS: methylPREDNISolone SOD SUCCI 40 MG/ML 1 ML VIAL IV SCH (08:15)
[2016-11-17] MEDS ORDERED: LEVOFLOXACIN 750 MG TAB PO SCH (09:00)
[2016-11-17] MEDS: ENOXAPARIN 40 MG/0.4 ML SYRINGE SQ SCH (09:20)
[2016-11-17] MEDS: MAGNESIUM SULFATE-D5W PMX 1 GM in DEXTROSE/WATER 1 100ML.BAG IVPB SCH ×2 (09:20→09:45)
[2016-11-17] MEDS: FAMOTIDINE 20 MG TAB PO SCH ×2 (09:20→20:28)
[2016-11-17] MEDS: ALPRAZolam 0.25 MG TAB PO PRN ×2 (09:45→17:54)
[2016-11-17] MEDS: INSULIN LISPRO (humaLOG) 300 UNIT/3 ML VIAL SQ SCH ×4 (09:46→20:59)
[2016-11-17] MEDS: DILTIAZEM CD 240 MG CAP.ER.24H PO SCH (12:04)
[2016-11-17 12:06] LABS: Glucose,Whole Blood 79 mg/dL (75-99)
[2016-11-17] MEDS ORDERED: SODIUM POLYSTYRENE SULFONATE 15 GM/60 ML BOTTLE PO STA (14:32)
--- NOTE | 2016-11-17 14:34 | P.PN ---
Subjective Patient is doing well today. She's continued to be transferred to a [facility]. No events overnight. Objective - Vital Signs Vital signs: Vital Signs Temp 98.5 F 11/17/16 13:00 Pulse 88 11/17/16 13:00 Resp 16 11/17/16 13:00 BP 147/89 11/17/16 13:00 Pulse Ox 96 11/17/16 13:00 Intake & Output 11/16/16 11/17/16 11/17/16 18:59 06:59 18:59 Intake Total 2440 300 1440 Output Total 745 225 400 Balance 1695 75 1040 Weight 46.8 kg 46.8 kg Intake: IV 1000 300 700 NS 1000 300 700 Intake, IV Titration 200 200 Amount Magnesium Sulfate-D5w Pmx 200 1 gm In Dextrose/Water 1 100ml.bag @ 100 mls/hr IVPB Q1H [facility] Rx#: [id number] Magnesium Sulfate-D5w Pmx 200 1 gm In Dextrose/Water 1 100ml.bag @ 100 mls/hr IVPB Q1H [facility] Rx#: [id number] Oral 1240 540 Output: Urine 745 225 400 Other: Voiding Method Indwelling Catheter Indwelling Catheter Indwelling Catheter - Exam General: The patient is awake and alert, in no distress Eye: there is normal conjunctiva bilaterally. Neck: The neck is supple, there is no JVD. Cardiovascular: Normal S1-S2, no S3-S4, no murmurs. Respiratory: Lungs clear to auscultation bilaterally Gastrointestinal: Abdomen is soft, nontender Musculoskeletal: There is no pedal edema. Neurological:. Speech is normal. Skin: Skin is warm and dry - Labs CBC & Chem 7: 11/17/16 04:36 11/17/16 04:33 Labs: Abnormal Lab Results - Last 24 Hours (Table) 11/16/16 11/16/16 11/17/16 Range/Units 18:24 20:26 04:33 Hct (34.0-46.0) % Plt Count (150-450) k/uL Lymphocytes # (1.0-4.8) k/uL Potassium 5.2 H (3.5-5.1) mmol/L Chloride 96 L (98-107) mmol/L Carbon Dioxide 34 H (22-30) mmol/L Creatinine 0.30 L (0.52-1.04) mg/dL Glucose 102 H (74-99) mg/dL POC Glucose (mg/dL) 181 H 200 H (75-99) mg/dL 11/17/16 11/17/16 Range/Units 04:36 07:23 Hct 47.2 H (34.0-46.0) % Plt Count 144 L (150-450) k/uL Lymphocytes # 0.8 L (1.0-4.8) k/uL Potassium (3.5-5.1) mmol/L Chloride (98-107) mmol/L Carbon Dioxide (22-30) mmol/L Creatinine (0.52-1.04) mg/dL Glucose (74-99) mg/dL POC Glucose (mg/dL) 104 H (75-99) mg/dL Assessment and Plan Plan: 1. Acute hypoxic and hypercapnic respiratory failure 2. Acute bacterial bronchitis: On Levaquin 3. Acute exacerbation of underlying COPD 4. Opiate overdose: Patient admitted that she took one extra [place]. 5. Paroxysmal atrial fibrillation: heart rate well controlled. Not a candidate for anticoagulation for history of heavy bleeding. Continue aspirin daily. 6. Chronic hepatitis C 7. 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 I would down escalate her regimen 8. GI and DVT prophylaxis Today, I reviewed her medication list. Continue steroids and bronchodilator. Continue Levaquin. Continue supportive care otherwise. Transfer outside of the intensive care unit to a general purchasing agent units. Repeat lab work in the morning. I would continue to follow up on her closely. Anticipate discharge home within the next day or 2
[2016-11-17] MEDS: DILTIAZEM CD 120 MG CAP.ER.24H PO SCH (14:40)
--- NOTE | 2016-11-17 14:49 | P.PN ---
Subjective 61-year-old female patient who presented to the emergency department after being found obtunded and unresponsive by her son. I can't understand that the patient's has been admitted to our ICU with respiratory failure. The patient accordingly was abusing her narcotic medication and she has a history of doing so. Based on the pill count, the patient has taken excessive amount of morphine 15 mg and [place] 10 mg and she was found to be unresponsive at home. EMS found the patient hypoxic with a pulse ox of around 50% and she was placed on 100% nonrebreather facemask. She was also given Narcan. The same was done in the emergency department here the patient became more responsive yet more agitated. At the later stage patient became more short of breath and she started getting more hypoxic. At that point she was intubated and placed on a mechanical ventilator and pulmonary and critical care consultation was obtained I saw the patient in the emergency department. She was sedated with Diprivan. She was hemodynamically stable. She was withdrawing to painful stimuli only and she was able to move all 4 extremities to deep painful stimuli. She was in a mechanical ventilator and she was having frothy rest or secretions. The patient was an assist-control mode at the rate of 14, tidal volume 450, FiO2 of 100% and PEEP of 5. The peak airway pressure was around 48 with a static pressure of around 16. Blood gases showed a component of hypercapnic respiratory failure. There chest x-ray showed adequate positioning of the ET tube. Some increased interstitial markings could be related to early CHF versus chronic bronchitis. No clear-cut history of aspiration. No consolidation or airspace disease. CAT scan of the brain was done and showed no acute abnormalities. No seizure activity has been noted. The patient is known to have COPD. She was also known to have chronic narcotic medication abuse. On 11/15/2016 I'm seeing this patient in follow-up. The patient got moved to the intensive care unit. Further discussion with the family and the son mated less clear whether the patient had a clear-cut drug overdose. Apparently the pill count was incorrect and the patient probably was taken appropriate doses of narcotic medication. Nevertheless there is also benzodiazepines in her urine drug screen and it's possibly that both narcotics and benzos contribute to respiratory failure. The patient was quite bronchospastic and her pressures were significantly elevated post intubation. Initial peak airway pressure was above 45. She was treated with bronchodilators and steroids throughout the past 12 hours and currently her peak air pressures down to 26 and there is no significant ROP. Chest x-ray shows hyperinflation and the tube is in good location there is no evidence of any acute pulmonary infiltration or pneumonia. The patient is on Diprivan drip for sedation. The patient has remained hemodynamically stable. Urine output is approximately 50 mL an hour. Otherwise no other significant events over the past12 hours. She is seen again today 11/16/2016 in follow-up in the intensive care unit. She was successfully extubated yesterday afternoon. She is awake and alert in no acute distress. She does state she took an extra pain pill the day she arrived because she was having significant pain and she wanted to come to the hospital to visit her . She is aware of the cautious use based on her pulmonary status. Currently she denies any shortness of breath, cough or congestion. She is maintaining good O2 saturations in the 90s on 4 L/m per nasal cannula. Her blood cultures and sputum cultures revealed no growth. She is sitting up in bed and eating a breakfast. She is less tachycardic today. She is hemodynamically stable. She is afebrile. No leukocytosis. The patient is seen again today 11/17/2016 in follow-up. She remains in the intensive care unit but is technically has medical floor overflow. She is awake and alert in no acute distress. She denies any worsening shortness of breath, cough or congestion. No dizziness or lightheadedness. She is maintaining good O2 saturations in the mid 90s on 2 L/m per nasal cannula. She' s been afebrile. Hemodynamically stable. Her heart rate is better controlled since resuming her Cardizem. Objective - Vital Signs Vital signs: Vital Signs Temp 98.5 F 11/17/16 13:00 Pulse 88 11/17/16 13:00 Resp 16 11/17/16 13:00 BP 147/89 11/17/16 13:00 Pulse Ox 96 11/17/16 13:00 Intake & Output 11/16/16 11/17/16 11/17/16 18:59 06:59 18:59 Intake Total 2440 300 1440 Output Total 745 225 400 Balance 1695 75 1040 Weight 46.8 kg 46.8 kg Intake: IV 1000 300 700 NS 1000 300 700 Intake, IV Titration 200 200 Amount Magnesium Sulfate-D5w Pmx 200 1 gm In Dextrose/Water 1 100ml.bag @ 100 mls/hr IVPB Q1H [facility] Rx#: [id number] Magnesium Sulfate-D5w Pmx 200 1 gm In Dextrose/Water 1 100ml.bag @ 100 mls/hr IVPB Q1H [facility] Rx#: [id number] Oral 1240 540 Output: Urine 745 225 400 Other: Voiding Method Indwelling Catheter Indwelling Catheter Indwelling Catheter - Exam GENERAL EXAM: Alert, comfortable in no apparent distress. HEAD: Normocephalic. EYES: Normal reaction of pupils, equal size. NOSE: Clear with pink turbinates. THROAT: No erythema or exudates. NECK: No masses, no JVD. CHEST: No chest wall deformity. LUNGS: Equal air entry with faint end expiratory wheeze. Diminished. CVS: S1 and S2 normal with no audible murmurs, regular rhythm. ABDOMEN: No hepatosplenomegaly, normal bowel sounds, no guarding or rigidity. Extremities: There is no peripheral edema. No clubbing, no cyanosis. Peripheral pulses are intact. - Labs CBC & Chem 7: 11/17/16 04:36 11/17/16 04:33 Labs: Abnormal Lab Results - Last 24 Hours (Table) 11/16/16 11/16/16 11/17/16 Range/Units 18:24 20:26 04:33 Hct (34.0-46.0) % Plt Count (150-450) k/uL Lymphocytes # (1.0-4.8) k/uL Potassium 5.2 H (3.5-5.1) mmol/L Chloride 96 L (98-107) mmol/L Carbon Dioxide 34 H (22-30) mmol/L Creatinine 0.30 L (0.52-1.04) mg/dL Glucose 102 H (74-99) mg/dL POC Glucose (mg/dL) 181 H 200 H (75-99) mg/dL 11/17/16 11/17/16 Range/Units 04:36 07:23 Hct 47.2 H (34.0-46.0) % Plt Count 144 L (150-450) k/uL Lymphocytes # 0.8 L (1.0-4.8) k/uL Potassium (3.5-5.1) mmol/L Chloride (98-107) mmol/L Carbon Dioxide (22-30) mmol/L Creatinine (0.52-1.04) mg/dL Glucose (74-99) mg/dL POC Glucose (mg/dL) 104 H (75-99) mg/dL Assessment and Plan Plan: Assessment 1 Acute respiratory failure, secondary to COPD exacerbation addition to some contribution from various drugs including opiates and benzodiazepines. Patient is less spastic and wheezy. Airway pressures are improved compared to yesterday. The patient was treated with a combination of bronchodilators and steroids. She is also covered with empiric antibiotics. Today's chest x-ray is showing hyperinflation and it's clear. On 11/16/2016 she is awake and alert in no acute distress. She successfully extubated yesterday. She is maintaining good O2 saturations in the 90s on 4 L/ m per nasal cannula. 2 Altered mental status secondary to above, CAT scan of the brain is negative. Recovered. 3 Chronic intake of narcotic medications for pain control in addition to benzodiazepines. Rule out possibility of drug intoxication/overdose with the patient does admit to taking extra pain pill the day of her arrival. 4 COPD 5 Acute hypercapnic respiratory failure. This is essentially due to narcotic overdose yet even after intubating dictation the patient continued to have a component of hypercapnia and respiratory acidosis along with elevated airway pressures. I think is an obvious component of COPD exacerbation in addition. 6 Smoker 7 Anxiety/depression 8 Chronic hepatitis C viral infection of the liver 9 Chronic skeletal pain along with narcotic medication dependence. Plan The patient was seen and evaluated by Dr. Raphael. She is currently stable from the pulmonary standpoint. We'll continue with her current medications including bronchodilators, prednisone taper, empiric antibiotics in the form of Levaquin. We will continue to follow and make further recommendations based on her clinical status.
[2016-11-17 17:07] LABS: Glucose,Whole Blood 79 mg/dL (75-99)
[2016-11-17] MEDS: BUDESONIDE 0.5 MG/2 ML NEBU INHALATION SCH (20:01)
[2016-11-17 20:58] LABS: Glucose,Whole Blood 109 mg/dL (75-99)
[2016-11-18] MEDS: IPRATROPIUM-ALBUTEROL 3 ML NEB INHALATION PRN ×5 (01:41→20:42)
[2016-11-18] MEDS: ALPRAZolam 0.25 MG TAB PO PRN ×3 (01:44→18:07)
[2016-11-18] MEDS: HYDROcodone/APAP 10-325MG 1 EACH TAB PO PRN ×4 (04:00→21:56)
[2016-11-18] MEDS: INSULIN LISPRO (humaLOG) 300 UNIT/3 ML VIAL SQ SCH ×4 (07:35→21:04)
[2016-11-18 07:43] LABS: Glucose,Whole Blood 77 mg/dL (75-99)
[2016-11-18] MEDS: DILTIAZEM CD 240 MG CAP.ER.24H PO SCH (08:19)
[2016-11-18] MEDS: LEVOFLOXACIN 500 MG TAB PO SCH (08:19)
[2016-11-18] MEDS: FAMOTIDINE 20 MG TAB PO SCH ×2 (08:19→20:00)
[2016-11-18] MEDS: predniSONE 20 MG TAB PO SCH (08:19)
[2016-11-18] MEDS: ENOXAPARIN 40 MG/0.4 ML SYRINGE SQ SCH (08:20)
[2016-11-18] MEDS: BUDESONIDE 0.5 MG/2 ML NEBU INHALATION SCH ×2 (08:44→20:42)
[2016-11-18 09:30] LABS: Basophils % (A) 1 %; CHCM 30.2; Eosinophils % (A) 0 %; HCT 48.9 % (34.0-46.0); HDW 2.41; HGB 15.3 gm/dL (11.4-16.0); Hypochromasia Moderate; Luc # (Auto) 0.13; Luc % (Auto) 3; Lymphocytes % (A) 21 %; MCH 31.2 pg (25.0-35.0); MCHC 31.3 g/dL (31.0-37.0); MCV 99.7 fL (80.0-100.0); Mean Platelet Volume 7.9; Monocytes # (A) 0.3 k/uL (0-1.0); Monocytes % (A) 6 %; Neutrophils # (A) 3.4 k/uL (1.3-7.7); Neutrophils % (A) 70 %; RDW 13.8 % (11.5-15.5); WBC 4.8 k/uL (3.8-10.6); WBC (Perox) 5.08
[2016-11-18 09:50] LABS: Anion Gap 7 mmol/L; Blood Urea Nitrogen 10 mg/dL (7-17); Calcium 8.4 mg/dL (8.4-10.2); Carbon Dioxide 39 mmol/L (22-30); Chloride 92 mmol/L (98-107); Glucose 132 mg/dL (74-99); Magnesium 1.7 mg/dL (1.6-2.3); Non-African American GFR(MDRD) >60 (>60 ml/min/1.73 sqM); Phosphorous 3.7 mg/dL (2.5-4.5); Sodium 138 mmol/L (137-145)
[2016-11-18 10:04] LABS: Potassium 3.2 mmol/L (3.5-5.1)
[2016-11-18 12:16] LABS: Glucose,Whole Blood 93 mg/dL (75-99)
--- NOTE | 2016-11-18 12:19 | P.PN ---
Subjective 61-year-old female patient who presented to the emergency department after being found obtunded and unresponsive by her son. I can't understand that the patient's has been admitted to our ICU with respiratory failure. The patient accordingly was abusing her narcotic medication and she has a history of doing so. Based on the pill count, the patient has taken excessive amount of morphine 15 mg and [place] 10 mg and she was found to be unresponsive at home. EMS found the patient hypoxic with a pulse ox of around 50% and she was placed on 100% nonrebreather facemask. She was also given Narcan. The same was done in the emergency department here the patient became more responsive yet more agitated. At the later stage patient became more short of breath and she started getting more hypoxic. At that point she was intubated and placed on a mechanical ventilator and pulmonary and critical care consultation was obtained I saw the patient in the emergency department. She was sedated with Diprivan. She was hemodynamically stable. She was withdrawing to painful stimuli only and she was able to move all 4 extremities to deep painful stimuli. She was in a mechanical ventilator and she was having frothy rest or secretions. The patient was an assist-control mode at the rate of 14, tidal volume 450, FiO2 of 100% and PEEP of 5. The peak airway pressure was around 48 with a static pressure of around 16. Blood gases showed a component of hypercapnic respiratory failure. There chest x-ray showed adequate positioning of the ET tube. Some increased interstitial markings could be related to early CHF versus chronic bronchitis. No clear-cut history of aspiration. No consolidation or airspace disease. CAT scan of the brain was done and showed no acute abnormalities. No seizure activity has been noted. The patient is known to have COPD. She was also known to have chronic narcotic medication abuse. On 11/15/2016 I'm seeing this patient in follow-up. The patient got moved to the intensive care unit. Further discussion with the family and the son mated less clear whether the patient had a clear-cut drug overdose. Apparently the pill count was incorrect and the patient probably was taken appropriate doses of narcotic medication. Nevertheless there is also benzodiazepines in her urine drug screen and it's possibly that both narcotics and benzos contribute to respiratory failure. The patient was quite bronchospastic and her pressures were significantly elevated post intubation. Initial peak airway pressure was above 45. She was treated with bronchodilators and steroids throughout the past 12 hours and currently her peak air pressures down to 26 and there is no significant ROP. Chest x-ray shows hyperinflation and the tube is in good location there is no evidence of any acute pulmonary infiltration or pneumonia. The patient is on Diprivan drip for sedation. The patient has remained hemodynamically stable. Urine output is approximately 50 mL an hour. Otherwise no other significant events over the past12 hours. On 11/18/2016 I'm seeing this patient in follow-up. The patient has been extubated. The patient on the medical floor. The patient got moved out of the intensive care unit. No magistral distress for now. I came to find out that the patient has been seen and treated by Dr. Webster on outpatient basis and based on that we'll transfer care to Dr. Richard/Katelyn Webster. Nevertheless she is doing while for now her condition is stable. Objective - Vital Signs Vital signs: Vital Signs Temp 99.2 F 11/18/16 07:00 Pulse 84 11/18/16 08:55 Resp 18 11/18/16 07:00 BP 130/81 11/18/16 07:00 Pulse Ox 95 11/18/16 07:00 Intake & Output 11/17/16 11/18/16 11/18/16 18:59 06:59 18:59 Intake Total 1440 900 Output Total 400 Balance 1040 900 Weight 46.8 kg Intake: IV 700 NS 700 Intake, IV Titration 200 Amount Magnesium Sulfate-D5w Pmx 200 1 gm In Dextrose/Water 1 100ml.bag @ 100 mls/hr IVPB Q1H [facility] Rx#: [id number] Oral 540 900 Output: Urine 400 Other: Voiding Method Indwelling Catheter # Voids 2 3 - Exam Head exam was generally normal. There was no scleral icterus or corneal arcus. Mucous membranes were moist.Neck was supple and without jugular venous distension, thyromegaly, or carotid bruits. Carotids were easily palpable bilaterally. There was no adenopathy. Lung sounds are diminished bilaterally along with some few scattered expiratory wheeze.Cardiac exam revealed the PMI to be normally situated and sized. The rhythm was regular and no extrasystoles were noted during several minutes of auscultation. The first and second heart sounds were normal and physiologic splitting of the second heart sound was noted. There were no murmurs, rubs, clicks, or gallops.Abdominal exam revealed normal bowel sounds. The abdomen was soft, non-tender, and without masses, organomegaly, or appreciable enlargement of the abdominal aorta.Examination of the extremities revealed easily palpable radial, femoral and pedal pulses. There was no cyanosis, clubbing or edema. - Labs CBC & Chem 7: 11/18/16 08:36 11/18/16 08:36 Labs: Abnormal Lab Results - Last 24 Hours (Table) 11/17/16 11/18/16 11/18/16 Range/Units 20:54 08:36 08:36 Hct 48.9 H (34.0-46.0) % Plt Count 104 L (150-450) k/uL Potassium 3.2 L (3.5-5.1) mmol/L Chloride 92 L (98-107) mmol/L Carbon Dioxide 39 H (22-30) mmol/L Creatinine 0.29 L (0.52-1.04) mg/dL Glucose 132 H (74-99) mg/dL POC Glucose (mg/dL) 109 H (75-99) mg/dL Assessment and Plan Plan: Assessment 1 acute respiratory failure, secondary to COPD exacerbation , recovered 2 altered mental status secondary to above, recovered 3 chronic intake of narcotic medications for pain control in addition to benzodiazepines. Rule out possibility of drug intoxication/overdose 4 COPD 5 acute hypercapnic respiratory failure. Recovered 6 smoker 7 anxiety/depression 8 chronic hepatitis C viral infection of the liver 9 chronic skeletal pain along with narcotic medication dependence. Plan We came to find out the patient has been followed up by Dr. Nelson Webster. The patient will be switched to his service. Her condition is stable for now.
--- NOTE | 2016-11-18 14:29 | P.PN ---
Subjective Patient is doing fairly well today. She was up walking earlier with no difficulty. Minimal shortness of breath on exertion. She is still requiring oxygen walking around. Objective - Vital Signs Vital signs: Vital Signs Temp 99.2 F 11/18/16 07:00 Pulse 80 11/18/16 12:33 Resp 18 11/18/16 07:00 BP 130/81 11/18/16 07:00 Pulse Ox 95 11/18/16 07:00 Intake & Output 11/17/16 11/18/16 11/18/16 18:59 06:59 18:59 Intake Total 1440 900 Output Total 400 Balance 1040 900 Weight 46.8 kg Intake: IV 700 NS 700 Intake, IV Titration 200 Amount Magnesium Sulfate-D5w Pmx 200 1 gm In Dextrose/Water 1 100ml.bag @ 100 mls/hr IVPB Q1H [facility] Rx#: [id number] Oral 540 900 Output: Urine 400 Other: Voiding Method Indwelling Catheter # Voids 2 3 - Exam General: The patient is awake and alert, in no distress Eye: there is normal conjunctiva bilaterally. Neck: The neck is supple, there is no JVD. Cardiovascular: Normal S1-S2, no S3-S4, no murmurs. Respiratory: Lungs clear to auscultation bilaterally Gastrointestinal: Abdomen is soft, nontender Musculoskeletal: There is no pedal edema. Neurological:. Speech is normal. Skin: Skin is warm and dry - Labs CBC & Chem 7: 11/18/16 08:36 11/18/16 08:36 Labs: Abnormal Lab Results - Last 24 Hours (Table) 11/17/16 11/18/16 11/18/16 Range/Units 20:54 08:36 08:36 Hct 48.9 H (34.0-46.0) % Plt Count 104 L (150-450) k/uL Potassium 3.2 L (3.5-5.1) mmol/L Chloride 92 L (98-107) mmol/L Carbon Dioxide 39 H (22-30) mmol/L Creatinine 0.29 L (0.52-1.04) mg/dL Glucose 132 H (74-99) mg/dL POC Glucose (mg/dL) 109 H (75-99) mg/dL Assessment and Plan Plan: 1. Acute hypoxic and hypercapnic respiratory failure 2. Acute bacterial bronchitis: On Levaquin 3. Acute exacerbation of underlying COPD 4. Opiate overdose: Patient admitted that she took one extra [place]. 5. Paroxysmal atrial fibrillation: heart rate well controlled. Not a candidate for anticoagulation for history of heavy bleeding. Continue aspirin daily. 6. Chronic hepatitis C 7. Degenerative joint disease of the lumbar spine with multiple disc bulging at multiple levels: Maintained chronically on morphine sulfate ER 15 mg twice daily and [place] 4 times a day as needed. I would down escalate her regimen 8. GI and DVT prophylaxis Today, I reviewed her medication list. Continue steroids and bronchodilator. Continue Levaquin. Continue supportive care otherwise. Discontinue oxygen and check oxygen saturation with ambulation on room air. Repeat lab work in the morning. I would continue to follow up on her closely. Anticipate discharge home within the next day or 2
[2016-11-18 17:26] LABS: Glucose,Whole Blood 124 mg/dL (75-99)
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
[2016-11-18 20:55] LABS: Glucose,Whole Blood 116 mg/dL (75-99)
[2016-11-18] MEDS ORDERED: MELATONIN 5 MG TABLET PO PRN (21:15)
[2016-11-18] MEDS ORDERED: SODIUM CHLORIDE 0.65% NASAL SPRAY 44 ML BTL NASAL PRN (21:16)
[2016-11-19] MEDS: IPRATROPIUM-ALBUTEROL 3 ML NEB INHALATION PRN ×6 (00:51→21:19)
[2016-11-19] MEDS: ALPRAZolam 0.25 MG TAB PO PRN ×3 (01:59→20:12)
[2016-11-19] MEDS: HYDROcodone/APAP 10-325MG 1 EACH TAB PO PRN ×3 (04:25→20:12)
[2016-11-19] MEDS: FAMOTIDINE 20 MG TAB PO SCH ×2 (07:31→20:12)
[2016-11-19] MEDS: DILTIAZEM CD 240 MG CAP.ER.24H PO SCH (07:32)
[2016-11-19] MEDS: ENOXAPARIN 40 MG/0.4 ML SYRINGE SQ SCH (07:32)
[2016-11-19] MEDS: INSULIN LISPRO (humaLOG) 300 UNIT/3 ML VIAL SQ SCH ×4 (07:32→21:36)
[2016-11-19] MEDS: LEVOFLOXACIN 500 MG TAB PO SCH (07:32)
[2016-11-19] MEDS: predniSONE 20 MG TAB PO SCH (07:32)
[2016-11-19] MEDS ORDERED: DOCUSATE 100 MG CAP PO PRN (07:35)
[2016-11-19 07:42] LABS: Glucose,Whole Blood 77 mg/dL (75-99)
[2016-11-19] MEDS: BUDESONIDE 0.5 MG/2 ML NEBU INHALATION SCH ×2 (07:47→21:18)
[2016-11-19 07:57] LABS: Aty Lym Flag Slight; Basophils % (A) 0 %; CH 30.1; CHCM 30.8; Eosinophils % (A) 1 %; HDW 2.43; HGB 14.9 gm/dL (11.4-16.0); Hypochromasia Slight; Luc # (Auto) 0.32; Luc % (Auto) 6; Lymphocytes # (A) 1.4 k/uL (1.0-4.8); Lymphocytes % (A) 25 %; MCHC 31.7 g/dL (31.0-37.0); MCV 98.1 fL (80.0-100.0); Mean Platelet Volume 7.5; Monocytes # (A) 0.4 k/uL (0-1.0); Monocytes % (A) 7 %; Neutrophils # (A) 3.6 k/uL (1.3-7.7); Neutrophils % (A) 62 %; RBC 4.79 m/uL (3.80-5.40); RDW 13.6 % (11.5-15.5); WBC 5.8 k/uL (3.8-10.6); WBC (Perox) 6.08
[2016-11-19 07:59] LABS: Anion Gap 7 mmol/L; Blood Urea Nitrogen 14 mg/dL (7-17); Calcium 8.6 mg/dL (8.4-10.2); Carbon Dioxide 36 mmol/L (22-30); Chloride 93 mmol/L (98-107); Glucose 81 mg/dL (74-99); Magnesium 1.8 mg/dL (1.6-2.3); Non-African American GFR(MDRD) >60 (>60 ml/min/1.73 sqM); Phosphorous 3.9 mg/dL (2.5-4.5); Sodium 136 mmol/L (137-145)
[2016-11-19 08:06] LABS: Potassium 3.9 mmol/L (3.5-5.1)
[2016-11-19 12:03] LABS: Glucose,Whole Blood 118 mg/dL (75-99)
--- NOTE | 2016-11-19 14:47 | P.DS ---
Providers Date of admission: 11/14/16 12:11 Expected date of discharge: 11/19/16 [facility] Consults: 11/18/16 12:18 Consult Physician Routine Consulting Provider: Jey Webster Consult Reason/Comments: sees client outpatient Do you want consulting provider notified?: Yes 11/18/16 14:59 Consult Physician Routine Consulting Provider: Sharad Romano Consult Reason/Comments: medical debility. Do you want consulting provider notified?: Yes Primary care physician: [facility] Course: This is a 61-year-old female with past medical history noted below who presented to the hospital with altered mental status and lethargy and was found to have opiate overdose requiring intubation and mechanical ventilation for 24 hours. Patient was also treated for multiple medical problems noted below. On the day of discharge patient was very comfortable. Her lungs were clear to auscultation. She continues to be hypoxic on room air requiring supplemental O2. Home O2 will be set up for this patient. Patient was also able to ambulate independently using a walker and was not interested in going to any rehab facilities. She will follow-up with me in the office early next week. She would finish short course of prednisone and antibiotic at home. Below is a list of her medical problems addressed during this hospitalization. 1. Acute hypoxic and hypercapnic respiratory failure 2. Acute bacterial bronchitis: On Levaquin 3. Acute exacerbation of underlying COPD 4. Opiate overdose: Patient admitted that she took one extra [place]. 5. Paroxysmal atrial fibrillation: heart rate well controlled. Not a candidate for anticoagulation for history of heavy bleeding. Continue aspirin daily. 6. Chronic hepatitis C 7. 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 I would down escalate her regimen 8. GI and DVT prophylaxis Patient Condition at Discharge: Fair Plan - Discharge Summary New Discharge Prescriptions: Levofloxacin [Levaquin] 500 mg PO DAILY #5 tab predniSONE 40 mg PO DAILY #10 tab Discharge Medication List Pramipexole [Mirapex] 0.5 mg PO HS 09/28/15 [History] Albuterol Inhaler [Ventolin Hfa Inhaler] 1 - 2 puff INHALATION RT-Q6H PRN [History] Albuterol Nebulized [Ventolin Nebulized] 2.5 mg INHALATION RT-QID 10/04/15 [ History] Tiotropium [place] [Spiriva] 18 mcg INHALATION RT-DAILY 10/04/15 [History] Fluticasone Nasal [place] [Flonase Nasal [place]] 1 spray EA NOSTRIL DAILY PRN 10/17 [History] Cholecalciferol [Vitamin D3] 2,000 unit PO DAILY 02/02/16 [History] Diltiazem Cd [Cardizem CD] 240 mg PO DAILY 02/02/16 [History] Omeprazole 20 mg PO BID 02/02/16 [History] Beclomethasone Dipropionate [Qvar 80 mcg] 1 puff INHALATION RT-BID 11/14/16 [ History] HYDROcodone/APAP 10-325MG [[place] 10-325] 1 tab PO Q4HR PRN 11/14/16 [History] Levofloxacin [Levaquin] 500 mg PO DAILY #5 tab 11/19/16 [Rx] predniSONE 40 mg PO DAILY #10 tab 11/19/16 [Rx] Follow up Appointment(s)/Referral(s): Virginie Calvert MD [Primary Care Provider] - 1 Week Discharge Disposition: HOME SELF-CARE
[2016-11-19 15:53] VITALS: BP 120/72; RESP 17; TEMP 97.9
[2016-11-19 17:31] LABS: Glucose,Whole Blood 129 mg/dL (75-99)
[2016-11-19 21:08] LABS: Glucose,Whole Blood 120 mg/dL (75-99)
[2016-11-19 21:22] VITALS: PULSE 84
--- NOTE | 2016-11-20 11:53 | PN ---
DATE OF SERVICE: 11/19/2016. The patient has remained hemodynamically stable and is almost back to baseline as far as shortness of breath goes. On physical examination, respiratory rate 17, pulse rate 82, temperature 97.9, blood pressure 120/72, O2 sat on 2 liters by nasal cannula is 93%. HEENT is unremarkable. Chest reveals prolonged expiration no clear wheeze. Cardiovascular system reveals S1 and S2. ABDOMEN: Soft. There is no pedal edema. IMPRESSION: 1. Chronic obstructive pulmonary disease with acute exacerbation. 2. Drug overdose with acute respiratory failure. Agree with possible discharge planning today on supplemental oxygen, bronchodilators. Would be happy to see her in the outpatient setting in the next few days. She was counseled regarding her condition and this approach.
== END 2016-11-19 23:36 | disposition home health service (06) | DRG 208 ==
LOC: EC 07:55 → 6ICU 12:11 → 4MS4W 11-17 12:21
PROVIDERS: ADMIT Internal Medicine; ATTEND Internal Medicine
PROC: 5A1945Z Respiratory Ventilation, 24-96 Consecutive Hours (ICD-10-PCS; principal; 2016-11-14)
PROC: 0BH17EZ Insertion of Endotracheal Airway into Trachea, Via Natural or Artificial Opening (ICD-10-PCS; 2016-11-14)
DX: J44.0 Chronic obstructive pulmonary disease with (acute) lower respiratory infection (principal); J96.01 Acute respiratory failure with hypoxia; J96.02 Acute respiratory failure with hypercapnia; E87.2 Acidosis; F11.20 Opioid dependence, uncomplicated; E87.8 Other disorders of electrolyte and fluid balance, not elsewhere classified; I48.0 Paroxysmal atrial fibrillation; E86.0 Dehydration; I11.0 Hypertensive heart disease with heart failure; I50.9 Heart failure, unspecified; J20.9 Acute bronchitis, unspecified; T40.2X1A Poisoning by other opioids, accidental (unintentional), initial encounter; J44.1 Chronic obstructive pulmonary disease with (acute) exacerbation; J45.909 Unspecified asthma, uncomplicated; B18.2 Chronic viral hepatitis C; E87.5 Hyperkalemia; F17.200 Nicotine dependence, unspecified, uncomplicated; F32.9 Major depressive disorder, single episode, unspecified; F43.10 Post-traumatic stress disorder, unspecified; I25.2 Old myocardial infarction; I34.1 Nonrheumatic mitral (valve) prolapse; K21.9 Gastro-esophageal reflux disease without esophagitis; K58.9 Irritable bowel syndrome, unspecified; M19.90 Unspecified osteoarthritis, unspecified site; M41.9 Scoliosis, unspecified; M47.816 Spondylosis without myelopathy or radiculopathy, lumbar region; G89.29 Other chronic pain; M54.9 Dorsalgia, unspecified; F40.240 Claustrophobia; F41.9 Anxiety disorder, unspecified; Z79.899 Other long term (current) drug therapy; Z88.8 Allergy status to other drugs, medicaments and biological substances; Z85.9 Personal history of malignant neoplasm, unspecified; Z82.49 Family history of ischemic heart disease and other diseases of the circulatory system; Y92.009 Unspecified place in unspecified non-institutional (private) residence as the place of occurrence of the external cause
CPT/HCPCS: 31500; 36415; 36600; 43753; 70450; 71010; 80048; 80053; 80306; 81001; 82550; 82553; 82805; 83036; 83520; 83735; 83880; 84100; 84484; 85025; 85027; 85610; 85730; 87040; 87070; 87205; 93005; 94002; 94003; 94640; 96361; 96365; 96368; 96375; 99291

== ENCOUNTER 2017-02-06 11:21 | Inpatient (IN) | payer OTHER ==
[2017-02-06] MEDS ORDERED: IPRATROPIUM-ALBUTEROL 3 ML NEB INHALATION STA (11:41)
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
[2017-02-06 11:56] LABS: Basophils % (A) 0 %; CH 30.6; CHCM 32.7; Eosinophils # (A) 0.1 k/uL (0-0.7); Eosinophils % (A) 1 %; HCT 43.2 % (34.0-46.0); HDW 2.49; Luc # (Auto) 0.39; Luc % (Auto) 4; Lymphocytes % (A) 29 %; MCH 32.6 pg (25.0-35.0); MCHC 34.7 g/dL (31.0-37.0); Mean Platelet Volume 7.1; Monocytes # (A) 0.5 k/uL (0-1.0); Monocytes % (A) 5 %; Neutrophils # (A) 6.4 k/uL (1.3-7.7); Neutrophils % (A) 61 %; RBC 4.59 m/uL (3.80-5.40); RDW 13.5 % (11.5-15.5); WBC 10.5 k/uL (3.8-10.6); WBC (Perox) 10.33
--- NOTE | 2017-02-06 11:56 | XR ---
EXAMINATION TYPE: XR chest 2V DATE OF EXAM: 02/06/2017 HISTORY: difficulty breathing. REFERENCE: Previous study dated 11/15/2016. FINDINGS: The lungs are overinflated. The heart is not enlarged. There is chronic interstitial change . Pleural spaces are clear. IMPRESSION: COPD.
[2017-02-06 12:06] LABS: ALT 49 U/L (9-52); AST 23 U/L (14-36); Alkaline Phosphatase 105 U/L (38-126); Anion Gap 13 mmol/L; Blood Urea Nitrogen 12 mg/dL (7-17); Calcium 9.5 mg/dL (8.4-10.2); Carbon Dioxide 30 mmol/L (22-30); Chloride 95 mmol/L (98-107); Glucose 78 mg/dL (74-99); Magnesium 1.8 mg/dL (1.6-2.3); Non-African American GFR(MDRD) >60 (>60 ml/min/1.73 sqM); Potassium 4.1 mmol/L (3.5-5.1); Sodium 138 mmol/L (137-145); Total Bilirubin 0.5 mg/dL (0.2-1.3); Total Protein 7.6 g/dL (6.3-8.2)
[2017-02-06 12:10] LABS: Partial Thromboplastin Time 26.3 sec (22.0-30.0); Prothrombin Time 10.5 sec (9.0-12.0)
[2017-02-06 12:19] LABS: Creatine Kinase 36 U/L (30-135)
[2017-02-06 12:31] LABS: Creatine Kinase MB 1.6 ng/mL (0.0-2.4); Troponin I <0.012 ng/mL (0.000-0.034)
[2017-02-06] MEDS ORDERED: HYDROmorphone 1 MG/ML 1 ML SYRINGE IVP STA (12:50)
[2017-02-06] MEDS ORDERED: ASPIRIN 325 MG TAB PO PRN (14:07)
[2017-02-06] MEDS ORDERED: FLUTICASONE 50MCG/SPRAY NASAL 16GM EA NOSTRIL PRN (14:07)
[2017-02-06] MEDS ORDERED: NITROGLYCERIN SL TABS 0.4 MG TAB SUBLINGUAL PRN (14:08)
[2017-02-06] MEDS ORDERED: HEPARIN SODIUM,PORCINE 5,000 UNIT/ML 1 ML VIAL IV ONE (14:08)
[2017-02-06] MEDS: HEPARIN SODIUM,PORCINE/D5W PMX 25,000 UNIT in DEXTROSE/WATER 1 500ML.BAG IV SCH (14:20)
[2017-02-06] MEDS: SODIUM CHLORIDE 0.9% 1,000 ML IV SCH (14:20)
[2017-02-06] MEDS: HYDROcodone/APAP 10-325MG 1 EACH TAB PO PRN ×2 (15:03→20:48)
[2017-02-06] MEDS: IPRATROPIUM-ALBUTEROL 3 ML NEB INHALATION SCH ×2 (15:33→19:14)
[2017-02-06] MEDS: INSULIN LISPRO (humaLOG) 300 UNIT/3 ML VIAL SQ SCH ×2 (17:40→22:26)
[2017-02-06 17:41] LABS: Glucose,Whole Blood 73 mg/dL (75-99)
[2017-02-06] MEDS: PANTOPRAZOLE 40 MG TABLET PO SCH (17:52)
[2017-02-06] MEDS: methylPREDNISolone SOD SUCCI 125 MG/2 ML VIAL IV SCH ×2 (17:52→23:38)
[2017-02-06] MEDS: NITROGLYCERIN OINT 1 INCH/GM PACKET TOPICAL SCH ×2 (17:59→23:38)
[2017-02-06] MEDS: HYDROmorphone 1 MG/ML 1 ML SYRINGE IVP PRN ×2 (19:04→23:36)
[2017-02-06] MEDS: BUDESONIDE 0.5 MG/2 ML NEBU INHALATION SCH (19:14)
[2017-02-06 19:17] LABS: Creatine Kinase 32 U/L (30-135)
[2017-02-06 19:30] LABS: Creatine Kinase MB 1.2 ng/mL (0.0-2.4); Troponin I <0.012 ng/mL (0.000-0.034)
[2017-02-06] MEDS: MELATONIN 1 MG TAB PO SCH (20:37)
[2017-02-06] MEDS: DILTIAZEM CD 240 MG CAP.ER.24H PO SCH (20:37)
[2017-02-06] MEDS: PRAMIPEXOLE 0.5 MG TAB PO SCH (20:38)
[2017-02-06] MEDS: MONTELUKAST 10 MG TAB PO SCH (20:38)
[2017-02-06 21:53] LABS: Glucose,Whole Blood 133 mg/dL (75-99)
[2017-02-07 00:11] LABS: Creatine Kinase 28 U/L (30-135)
[2017-02-07 00:23] LABS: Creatine Kinase MB 1.3 ng/mL (0.0-2.4); Troponin I <0.012 ng/mL (0.000-0.034)
[2017-02-07] MEDS: HYDROcodone/APAP 10-325MG 1 EACH TAB PO PRN ×4 (03:05→21:13)
[2017-02-07 04:14] LABS: Cholesterol 143 mg/dL (<200); HDL Cholesterol 71 mg/dL (40-60); Triglycerides 42 mg/dL (<150)
[2017-02-07] MEDS: methylPREDNISolone SOD SUCCI 125 MG/2 ML VIAL IV SCH ×4 (04:56→23:17)
[2017-02-07] MEDS: HYDROmorphone 1 MG/ML 1 ML SYRINGE IVP PRN ×5 (05:20→23:17)
[2017-02-07] MEDS: NITROGLYCERIN OINT 1 INCH/GM PACKET TOPICAL SCH ×2 (05:22→11:58)
[2017-02-07] MEDS: IPRATROPIUM-ALBUTEROL 3 ML NEB INHALATION PRN (05:31)
[2017-02-07 06:19] LABS: Glucose,Whole Blood 141 mg/dL (75-99)
[2017-02-07] MEDS: INSULIN LISPRO (humaLOG) 300 UNIT/3 ML VIAL SQ SCH ×4 (06:24→21:10)
[2017-02-07] MEDS: PANTOPRAZOLE 40 MG TABLET PO SCH ×2 (06:24→17:27)
[2017-02-07] MEDS: ASPIRIN 325 MG TAB PO SCH (08:06)
[2017-02-07] MEDS: BUDESONIDE 0.5 MG/2 ML NEBU INHALATION SCH ×2 (08:44→20:38)
[2017-02-07] MEDS: IPRATROPIUM-ALBUTEROL 3 ML NEB INHALATION SCH ×4 (08:44→20:39)
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
--- NOTE | 2017-02-07 11:27 | ECHOF ---
Referral Reason:chest pain, shortness of breath MEASUREMENTS -------- HEIGHT: 152.4 cm WEIGHT: 49.0 kg BP: 134/77 IVSd: 1.5 cm (0.6 - 1.1) LVIDd: 4.3 cm (3.9 - 5.3) LVPWd: 1.5 cm (0.6 - 1.1) IVSs: 1.6 cm LVIDs: 3.0 cm LVPWs: 1.3 cm LAESV Index (A-L): 51.15 ml/m MV EXCURSION: 16.659 mm (> 18.000) MV EF SLOPE: 48 mm/s (70 - 150) EPSS: 1.9 cm MV E Alexander: 0.55 m/s MV DecT: 154 ms MV A Alexander: 0.86 m/s MV E/A Ratio: 0.64 RAP: 5.00 mmHg RVSP: 16.10 mmHg FINDINGS -------- Sinus rhythm. This was a technically adequate study. There is mild concentric left ventricular hypertrophy. Overall left ventricular systolic function is low-normal with, an EF between 50 - 55 %. The right ventricle is normal in size. LA is severely dilated >40 ml/m2 The right atrial size is normal. There is mild aortic valve sclerosis. There is no evidence of aortic regurgitation. Moderate mitral regurgitation is present. Moderate prolapse of the posterior mitral valve leaflet. Mild tricuspid regurgitation present. Right ventricular systolic pressure is normal at < 35 mmHg. There is no evidence of pulmonary hypertension. Trace/mild (physiologic) pulmonic regurgitation. The aortic root size is normal. There is no pericardial effusion. CONCLUSIONS -------- 1. There is mild concentric left ventricular hypertrophy. 2. Trace/mild (physiologic) pulmonic regurgitation. 3. The aortic root size is normal. 4. There is no pericardial effusion. 5. Overall left ventricular systolic function is low-normal with, an EF between 50 - 55 %. 6. LA is severely dilated >40 ml/m2 7. There is mild aortic valve sclerosis. 8. Moderate mitral regurgitation is present. 9. Moderate prolapse of the posterior mitral valve leaflet. 10. Mild tricuspid regurgitation present. 11. Right ventricular systolic pressure is normal at < 35 mmHg. 12. There is no evidence of pulmonary hypertension. USED [employer]: Lisa Coyne RDCS
[2017-02-07 12:03] LABS: Glucose,Whole Blood 120 mg/dL (75-99)
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
[2017-02-07] MEDS: CHOLECALCIFEROL 1,000 UNIT TAB PO SCH (12:20)
[2017-02-07] MEDS: AZITHROMYCIN 500 MG in SODIUM CHLORIDE 0.9% 250 ML IVPB SCH (13:45)
[2017-02-07] MEDS: SODIUM CHLORIDE 0.9% 1,000 ML IV SCH (15:24)
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
[2017-02-07] MEDS: HEPARIN SODIUM,PORCINE/D5W PMX 25,000 UNIT in DEXTROSE/WATER 1 500ML.BAG IV SCH (15:44)
[2017-02-07 17:05] LABS: Glucose,Whole Blood 122 mg/dL (75-99)
[2017-02-07] MEDS: SENNOSIDES-DOCUSATE SODIUM 1 EACH TAB PO SCH (17:26)
[2017-02-07] MEDS: guaiFENesin 600 MG TABLET.ER PO SCH (20:27)
[2017-02-07] MEDS: DILTIAZEM CD 240 MG CAP.ER.24H PO SCH (20:27)
[2017-02-07] MEDS: MELATONIN 1 MG TAB PO SCH (20:27)
[2017-02-07] MEDS: MONTELUKAST 10 MG TAB PO SCH (20:28)
[2017-02-07] MEDS: PRAMIPEXOLE 0.5 MG TAB PO SCH (20:28)
[2017-02-07] MEDS ORDERED: RX INFO: IV CONTRAST WAS GIVEN 1 EACH MISC MISCELLANE PRN (20:35)
[2017-02-07 20:48] LABS: Glucose,Whole Blood 114 mg/dL (75-99)
[2017-02-07] MEDS: IOHEXOL 350 MG/ML 25 ML BOTTLE (ORAL USE) PO PRN ×2 (21:09→22:11)
[2017-02-07] MEDS: ZOLPIDEM 5 MG TAB PO PRN (23:47)
[2017-02-08] MEDS: IPRATROPIUM-ALBUTEROL 3 ML NEB INHALATION PRN ×2 (00:06→23:57)
--- NOTE | 2017-02-08 00:10 | CT ---
EXAM: CT Abdomen and Pelvis With Intravenous Contrast CLINICAL HISTORY: Reason: ABD PAIN/DISTENTION TECHNIQUE: Axial computed tomography images of the abdomen and pelvis with intravenous contrast. This CT exam was performed using one or more of the following dose reduction techniques: automated exposure control, adjustment of the mA and/or kV according to patient size, and/or use of iterative reconstruction technique. DLP is 342.80 mGy-cm. COMPARISON: 01/14/16 FINDINGS: Lower thorax: Left lower lobe nodule seen on the prior is not identified though this portion of lung bases may not be imaged. Areas of atelectasis and/or scar. Chronic lung findings with some emphysematous changes. ABDOMEN and PELVIS: Examination is limited by paucity of mesenteric fat. The appendix is not identified. There are areas of increased fecal burden suggested. Correlate for constipation. There is also some generalized distention of bowel including the stomach and small bowel. Oral contrast has not reached the colon but no obstruction is appreciated. Equivocal mural thickening of some small bowel segments may relate to underdistention. Correlate for enteritis. Favor underdistention. Stomach is more distended than the previous examination. The possible mural thickening of the stomach seen on the previous not seen on the current. Cystic upper pole left renal lesion. Measures higher than that of a simple cyst. Stable size compared to prior. Other low-density renal lesions too small to characterize. Suspected diverticulosis. No diverticulitis present. Left adnexal cyst. Measures about 3 cm on axials. There was a similar-sized cyst in the same location on the prior exam. No evidence for acute pancreatitis is appreciated. Degenerative changes and spinal curvature. Calcification seen in region of right bladder on the prior is not identified. Right adnexa not well evaluated secondary to volume averaging with bowel without perhaps the calcification on the previous was related to the right adnexa. No rectus sheath hematoma on current. IMPRESSION: No bowel obstruction. Favor underdistention over the thickening of some small bowel loops. Correlate for enteritis. Overall generalized bowel distention without obstruction suspected. Other findings, as above.
[2017-02-08] MEDS: HYDROmorphone 1 MG/ML 1 ML SYRINGE IVP PRN ×5 (03:53→21:05)
[2017-02-08] MEDS: HYDROcodone/APAP 10-325MG 1 EACH TAB PO PRN ×4 (03:54→21:05)
[2017-02-08 05:38] LABS: Glucose,Whole Blood 146 mg/dL (75-99)
[2017-02-08] MEDS: PANTOPRAZOLE 40 MG TABLET PO SCH ×2 (06:21→17:04)
[2017-02-08] MEDS: methylPREDNISolone SOD SUCCI 125 MG/2 ML VIAL IV SCH ×3 (06:22→21:04)
[2017-02-08] MEDS: INSULIN LISPRO (humaLOG) 300 UNIT/3 ML VIAL SQ SCH ×4 (06:22→23:26)
[2017-02-08] MEDS: IPRATROPIUM-ALBUTEROL 3 ML NEB INHALATION SCH ×4 (07:49→19:47)
[2017-02-08] MEDS: BUDESONIDE 0.5 MG/2 ML NEBU INHALATION SCH ×2 (07:49→19:47)
[2017-02-08] MEDS: AZITHROMYCIN 500 MG in SODIUM CHLORIDE 0.9% 250 ML IVPB SCH (08:38)
[2017-02-08] MEDS: ASPIRIN 325 MG TAB PO SCH (08:38)
[2017-02-08] MEDS: SENNOSIDES-DOCUSATE SODIUM 1 EACH TAB PO SCH ×2 (08:39→21:05)
[2017-02-08] MEDS: guaiFENesin 600 MG TABLET.ER PO SCH ×2 (08:39→21:04)
[2017-02-08 11:37] LABS: Glucose,Whole Blood 152 mg/dL (75-99)
--- NOTE | 2017-02-08 12:33 | P.PN ---
Subjective Principal diagnosis: Acute exacerbation of COPD Patient seen and examined. Patient states her breathing is much better. She is a little shaky from the steroids. She is complaining of abdominal pain which she has had in the past. She has no other needs or complaints at this time. Objective - Vital Signs Vital signs: Vital Signs Temp 97.5 F L 02/08/17 08:44 Pulse 88 02/08/17 11:50 Resp 18 02/08/17 04:00 BP 138/86 02/08/17 08:44 Pulse Ox 94 L 02/08/17 08:44 Intake & Output 02/07/17 02/08/17 02/08/17 18:59 06:59 18:59 Intake Total 1023.998 60 Output Total 600 2 Balance 423.998 58 Weight 48.3 kg Intake: Intake, IV Titration 663.998 60 Amount Azithromycin 500 mg In 250 Sodium Chloride 0.9% 250 ml @ 125 mls/hr IVPB DAILY [facility] Rx#:[id number] Heparin Sodium,Porcine/ 123.998 D5w Pmx 25,000 unit In Dextrose/Water 1 500ml. bag @ 12 UNITS/KG/HR 11. 75 mls/hr IV .Q24H [facility] Rx #:[id number] Sodium Chloride 0.9% 1, 240 60 000 ml @ 20 mls/hr IV . Q24H [facility] Rx#:[id number] cefTRIAXone 1,000 mg In 50 Sodium Chloride 0.9% 50 ml @ 100 mls/hr IVPB Q24HR [facility] Rx#:[id number] Oral 360 Output: Urine 600 Stool 2 Other: Voiding Method Toilet Toilet # Voids 2 1 - Exam Gen.: Patient is alert and oriented 3, no acute distress Cardiovascular: Regular rate and rhythm, S1/S2 Lungs: Bilateral expiratory wheezing, improved air exchange Abdomen: Soft nontender nondistended positive bowel sounds Extremities: Trace edema - Labs CBC & Chem 7: 02/06/17 11:35 02/06/17 11:35 Labs: Abnormal Lab Results - Last 24 Hours (Table) 02/07/17 02/07/17 02/08/17 Range/Units 16:57 20:47 05:36 POC Glucose (mg/dL) 122 H 114 H 146 H (75-99) mg/dL 02/08/17 Range/Units 11:35 POC Glucose (mg/dL) 152 H (75-99) mg/dL Microbiology - Last 24 Hours (Table) 02/07/17 17:33 Gram Stain - Preliminary Sputum Assessment and Plan Plan: Acute on chronic hypoxic respiratory failure Acute exacerbation of COPD Bronchospasm Tracheobronchitis History of congestive heart failure, diastolic, ejection fraction 50-55% Chest pain History of tobacco abuse Hypertension GERD History of [place], mitral valve prolapse History of paroxysmal atrial fibrillation O2 to maintain saturation greater than equal to 88% Pulmicort and duo nebs Steroid taper Antibiotics: Rocephin, add Azithromycin Sputum culture pending Heparin drip per cardiology Singulair Mucinex Continued smoking cessation is recommended Patient has home oxygen Cardiology recommendations, plan for outpatient stress test Incentive spirometry and pulmonary hygiene GI and DVT prophylaxis
[2017-02-08] MEDS: SODIUM CHLORIDE 0.9% 1,000 ML IV SCH (12:47)
[2017-02-08] MEDS: CHOLECALCIFEROL 1,000 UNIT TAB PO SCH (12:47)
--- NOTE | 2017-02-08 13:21 | P.PN ---
Subjective Patient presented with chest pain shortness of breath. She was found have evidence of a COPD exacerbation and bronchitis. Patient's shortness of breath and wheezing are showing improvement. She's no other having chest pain. Denies any nausea or vomiting. Reports having regular bowel movements. Denies any difficulty with urinating. Patient reports having some abdominal distention and more pain in her abdomen especially the right lower quadrant. A computed tomography scan of the abdomen and pelvis completed shows no bowel obstruction. Thickening of some small bowel loops. Correlate for enteritis. Overall generalized bowel distention without obstruction suspected also noted a left adnexal cyst patient reports that she has ovarian cysts and fibroids of the uterus that have been causing a lot of her abdominal pain. A [employer] M[employer] OPERATOR consult was placed Objective - Vital Signs Vital signs: Vital Signs Temp 97.5 F L 02/08/17 08:44 Pulse 88 02/08/17 11:50 Resp 18 02/08/17 04:00 BP 138/86 02/08/17 08:44 Pulse Ox 94 L 02/08/17 08:44 Intake & Output 02/07/17 02/08/17 02/08/17 18:59 06:59 18:59 Intake Total 1023.998 60 Output Total 600 2 Balance 423.998 58 Weight 48.3 kg Intake: Intake, IV Titration 663.998 60 Amount Azithromycin 500 mg In 250 Sodium Chloride 0.9% 250 ml @ 125 mls/hr IVPB DAILY [facility] Rx#:[id number] Heparin Sodium,Porcine/ 123.998 D5w Pmx 25,000 unit In Dextrose/Water 1 500ml. bag @ 12 UNITS/KG/HR 11. 75 mls/hr IV .Q24H [facility] Rx #:[id number] Sodium Chloride 0.9% 1, 240 60 000 ml @ 20 mls/hr IV . Q24H [facility] Rx#:[id number] cefTRIAXone 1,000 mg In 50 Sodium Chloride 0.9% 50 ml @ 100 mls/hr IVPB Q24HR [facility] Rx#:[id number] Oral 360 Output: Urine 600 Stool 2 Other: Voiding Method Toilet Toilet # Voids 2 1 - Exam Head normocephalic Neck supple Lungs clear to auscultation bilaterally no wheezing or crackles Heart regular rate and rhythm S1-S2, no rub or gallop Abdomen is soft positive bowel sounds lower abdominal tenderness mostly in the right Extremities no edema Neuro alert and orientated to 3 - Labs CBC & Chem 7: 02/06/17 11:35 02/06/17 11:35 Labs: Abnormal Lab Results - Last 24 Hours (Table) 02/07/17 02/07/17 02/08/17 Range/Units 16:57 20:47 05:36 POC Glucose (mg/dL) 122 H 114 H 146 H (75-99) mg/dL 02/08/17 Range/Units 11:35 POC Glucose (mg/dL) 152 H (75-99) mg/dL Microbiology - Last 24 Hours (Table) 02/07/17 17:33 Gram Stain - Preliminary Sputum Assessment and Plan Plan: #1 episode of chest pain: SC ruled out. Troponins negative 3 sets. EKG on presentation reveals normal sinus rhythm without any acute ischemic changes. Cardiology following. Currently off of the IV heparin. Echo shows an EF of 50- 55% with moderate mitral regurgitation and moderate mitral valve prolapse. Cardiology recommending stress test outpatient when her lungs clear #2 acute COPD exacerbation continue IV steroids and bronchodilators. Showing improvement primary service following #3 acute purulent bronchitis continue Rocephin and azithromycin #4 underlying history of hypertension well-controlled continue was current blood pressure medications patient is maintained on Cardizem #5 paroxysmal atrial fibrillation, patient not on anticoagulation because of history of bleeding #6 history of hepatitis C #7 abdominal discomfort with known history of ovarian cyst and uterine fibroids : [employer] OPERATOR service consulted #8 abdominal pain with computed tomography scan the abdomen and pelvis showing thickening of some of the small bowel loops and possible enteritis DVT prophylaxis SCDs and ambulation I performed an examination of the patient and discussed their management with the physician Inclusion Manager. I have reviewed the Physician Inclusion Manager's notes and agree with the documented findings and plan of care
--- NOTE | 2017-02-08 14:55 | P.PN ---
Subjective Principal diagnosis: Shortness of breath This is 61-year-old female with known history of hypertension, asthma , COPD and paroxysmal atrial fibrillation who presented to the hospital with symptoms of chest tightness with associated wheezing and cough. Currently receiving treatment for COPD exacerbation and bronchospasm. She was seen and examined this morning, states that she's feeling somewhat better today continues to have scattered rhonchi and wheezing throughout. Objective - Vital Signs Vital signs: Vital Signs Temp 97.5 F L 02/08/17 08:44 Pulse 88 02/08/17 11:50 Resp 18 02/08/17 04:00 BP 138/86 02/08/17 08:44 Pulse Ox 94 L 02/08/17 08:44 Intake & Output 02/07/17 02/08/17 02/08/17 18:59 06:59 18:59 Intake Total 1023.998 60 Output Total 600 2 Balance 423.998 58 Weight 48.3 kg Intake: Intake, IV Titration 663.998 60 Amount Azithromycin 500 mg In 250 Sodium Chloride 0.9% 250 ml @ 125 mls/hr IVPB DAILY [facility] Rx#:[id number] Heparin Sodium,Porcine/ 123.998 D5w Pmx 25,000 unit In Dextrose/Water 1 500ml. bag @ 12 UNITS/KG/HR 11. 75 mls/hr IV .Q24H [facility] Rx #:[id number] Sodium Chloride 0.9% 1, 240 60 000 ml @ 20 mls/hr IV . Q24H [facility] Rx#:[id number] cefTRIAXone 1,000 mg In 50 Sodium Chloride 0.9% 50 ml @ 100 mls/hr IVPB Q24HR [facility] Rx#:[id number] Oral 360 Output: Urine 600 Stool 2 Other: Voiding Method Toilet Toilet # Voids 2 1 - Exam PHYSICAL EXAMINATION: HEENT: Head is atraumatic, normocephalic. Pupils equal, round. Neck is supple. There is no elevated jugular venous pressure. HEART EXAMINATION: S1 and S2 systolic murmur is heard. CHEST EXAMINATION: Reveal scattered coarse wheezing and rhonchi throughout. ABDOMEN: Soft, nontender. Bowel sounds are heard. No organomegaly noted. EXTREMITIES: 2+ peripheral pulses with no evidence of peripheral edema and no calf tenderness noted]. NEUROLOGIC [patient is awake, alert and oriented -3.] . - Labs CBC & Chem 7: 02/06/17 11:35 02/06/17 11:35 Labs: Abnormal Lab Results - Last 24 Hours (Table) 02/07/17 02/07/17 02/08/17 Range/Units 16:57 20:47 05:36 POC Glucose (mg/dL) 122 H 114 H 146 H (75-99) mg/dL 02/08/17 Range/Units 11:35 POC Glucose (mg/dL) 152 H (75-99) mg/dL Microbiology - Last 24 Hours (Table) 02/07/17 17:33 Gram Stain - Preliminary Sputum Assessment and Plan Plan: Assessment and plan #1 hypoxic respiratory failure with evidence of COPD exacerbation and bronchospasm. No clear-cut evidence of any congestive heart failure. #2 chest pain, atypical in nature. Troponins negative 3. EKG shows normal sinus rhythm with no acute changes. #3 paroxysmal atrial fibrillation, patient is not on anticoagulation because of history of bleeding. #4 COPD number 5 hypertension #6 hepatitis C #7 anxiety #8 marijuana use #9 prior history of smoking, patient states she quit smoking approximately 3 years ago. Plan Cardiology's perspective, we will recommend to continue current medications. We will follow this patient with you now on an as-needed basis only, please don' t hesitate to call with any questions. DNP note has been reviewed, I agree with a documented findings and plan of care. Patient was seen and examined.
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
[2017-02-08 17:58] LABS: Glucose,Whole Blood 136 mg/dL (75-99)
[2017-02-08] MEDS ORDERED: MAGNESIUM CITRATE 296 ML BOTTLE PO ONE (20:16)
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
[2017-02-08 20:52] LABS: Glucose,Whole Blood 118 mg/dL (75-99)
[2017-02-08] MEDS: DILTIAZEM CD 240 MG CAP.ER.24H PO SCH (21:04)
[2017-02-08] MEDS: MELATONIN 1 MG TAB PO SCH (21:04)
[2017-02-08] MEDS: PRAMIPEXOLE 0.5 MG TAB PO SCH (21:05)
[2017-02-08] MEDS: MONTELUKAST 10 MG TAB PO SCH (21:05)
[2017-02-08] MEDS: ZOLPIDEM 5 MG TAB PO PRN (23:26)
[2017-02-09] MEDS: HYDROmorphone 1 MG/ML 1 ML SYRINGE IVP PRN ×6 (01:18→23:08)
[2017-02-09] MEDS: HYDROcodone/APAP 10-325MG 1 EACH TAB PO PRN ×4 (03:13→22:37)
[2017-02-09] MEDS: IPRATROPIUM-ALBUTEROL 3 ML NEB INHALATION PRN (05:23)
[2017-02-09 05:47] LABS: Glucose,Whole Blood 182 mg/dL (75-99)
[2017-02-09 06:15] LABS: Basophils % (A) 0 %; CH 30.6; CHCM 31.9; Eosinophils % (A) 0 %; HDW 2.33; Luc % (Auto) 1; Lymphocytes # (A) 0.7 k/uL (1.0-4.8); Lymphocytes % (A) 7 %; MCH 32.1 pg (25.0-35.0); MCHC 33.3 g/dL (31.0-37.0); MCV 96.3 fL (80.0-100.0); Monocytes # (A) 0.3 k/uL (0-1.0); Monocytes % (A) 3 %; Neutrophils # (A) 9.1 k/uL (1.3-7.7); Neutrophils % (A) 89 %; RBC 4.36 m/uL (3.80-5.40); RDW 13.6 % (11.5-15.5); WBC 10.2 k/uL (3.8-10.6); WBC (Perox) 10.62
[2017-02-09] MEDS: INSULIN LISPRO (humaLOG) 300 UNIT/3 ML VIAL SQ SCH ×4 (06:24→20:46)
[2017-02-09] MEDS: PANTOPRAZOLE 40 MG TABLET PO SCH ×2 (06:24→16:26)
[2017-02-09 06:35] LABS: ALT 78 U/L (9-52); AST 37 U/L (14-36); Alkaline Phosphatase 80 U/L (38-126); Anion Gap 9 mmol/L; Blood Urea Nitrogen 18 mg/dL (7-17); Calcium 9.3 mg/dL (8.4-10.2); Carbon Dioxide 28 mmol/L (22-30); Chloride 99 mmol/L (98-107); Glucose 183 mg/dL (74-99); Non-African American GFR(MDRD) >60 (>60 ml/min/1.73 sqM); Potassium 4.1 mmol/L (3.5-5.1); Sodium 136 mmol/L (137-145); Total Bilirubin 0.5 mg/dL (0.2-1.3); Total Protein 6.8 g/dL (6.3-8.2)
[2017-02-09] MEDS: IPRATROPIUM-ALBUTEROL 3 ML NEB INHALATION SCH ×4 (08:15→19:50)
[2017-02-09] MEDS: BUDESONIDE 0.5 MG/2 ML NEBU INHALATION SCH ×2 (08:16→19:49)
[2017-02-09] MEDS: ASPIRIN 325 MG TAB PO SCH (09:12)
[2017-02-09] MEDS: AZITHROMYCIN 500 MG TAB PO SCH (09:12)
[2017-02-09] MEDS: guaiFENesin 600 MG TABLET.ER PO SCH ×2 (09:12→20:46)
[2017-02-09] MEDS: methylPREDNISolone SOD SUCCI 125 MG/2 ML VIAL IV SCH (09:12)
[2017-02-09] MEDS: SENNOSIDES-DOCUSATE SODIUM 1 EACH TAB PO SCH ×2 (09:13→20:46)
[2017-02-09 11:58] LABS: Glucose,Whole Blood 93 mg/dL (75-99)
[2017-02-09] MEDS ORDERED: LACTULOSE 20 GM/30 ML CUP PO ONE (13:27)
--- NOTE | 2017-02-09 13:33 | P.PN ---
Subjective Patient presented with chest pain shortness of breath. She was found have evidence of a COPD exacerbation and bronchitis. Patient's shortness of breath and wheezing are showing improvement. She's no other having chest pain. Denies any nausea or vomiting. Reports having regular bowel movements. Denies any difficulty with urinating. Patient reports having some abdominal distention and more pain in her abdomen especially the right lower quadrant. A computed tomography scan of the abdomen and pelvis completed shows no bowel obstruction. Thickening of some small bowel loops. Correlate for enteritis. Overall generalized bowel distention without obstruction suspected also noted a left adnexal cyst patient reports that she has ovarian cysts and fibroids of the uterus that have been causing a lot of her abdominal pain. A [employer] CER[employer]IST consult was placed 02/09/2017 patient's shortness of breath and cough are showing improvement. Patient was crying when I entered the room to reexamine her with Dr. Lock. She states that the steroids do this to her. She's also being treated for constipation. She was given mag citrate with no bowel movement yet. Still complaining of abdominal discomfort. No nausea or vomiting. Denies any chest pain or shortness of breath. Denies any burning with urination Objective - Vital Signs Vital signs: Vital Signs Temp 97.4 F L 02/09/17 08:00 Pulse 80 02/09/17 13:15 Resp 17 02/09/17 03:22 BP 135/79 02/09/17 08:00 Pulse Ox 97 02/09/17 08:00 Intake & Output 02/08/17 02/09/17 02/09/17 18:59 06:59 18:59 Intake Total 940 240 Output Total 600 Balance 940 -600 240 Weight 49.5 kg Intake: Intake, IV Titration 460 Amount Azithromycin 500 mg In 250 Sodium Chloride 0.9% 250 ml @ 125 mls/hr IVPB DAILY ROXY Rx#:[id number] Sodium Chloride 0.9% 1, 160 000 ml @ 20 mls/hr IV . Q24H ROXY Rx#:[id number] cefTRIAXone 1,000 mg In 50 Sodium Chloride 0.9% 50 ml @ 100 mls/hr IVPB Q24HR ROXY Rx#:[id number] Oral 480 240 Output: Urine 600 Other: Voiding Method Toilet # Voids 1 - Exam Head normocephalic Neck supple Lungs clear to auscultation bilaterally no wheezing or crackles Heart regular rate and rhythm S1-S2, no rub or gallop Abdomen is soft positive bowel sounds lower abdominal tenderness mostly in the right Extremities no edema Neuro alert and orientated to 3 - Labs CBC & Chem 7: 02/09/17 05:41 02/09/17 05:41 Labs: Abnormal Lab Results - Last 24 Hours (Table) 02/08/17 02/08/17 02/09/17 Range/Units 17:45 20:50 05:41 Neutrophils # 9.1 H (1.3-7.7) k/uL Lymphocytes # 0.7 L (1.0-4.8) k/uL Sodium (137-145) mmol/L BUN (7-17) mg/dL Creatinine (0.52-1.04) mg/dL Glucose (74-99) mg/dL POC Glucose (mg/dL) 136 H 118 H (75-99) mg/dL AST (14-36) U/L ALT (9-52) U/L 02/09/17 02/09/17 Range/Units 05:41 05:45 Neutrophils # (1.3-7.7) k/uL Lymphocytes # (1.0-4.8) k/uL Sodium 136 L (137-145) mmol/L BUN 18 H (7-17) mg/dL Creatinine 0.38 L (0.52-1.04) mg/dL Glucose 183 H (74-99) mg/dL POC Glucose (mg/dL) 182 H (75-99) mg/dL AST 37 H (14-36) U/L ALT 78 H (9-52) U/L Microbiology - Last 24 Hours (Table) 02/07/17 17:33 Gram Stain - Preliminary Sputum Sputum Culture - Preliminary Gram Neg Bacilli Assessment and Plan Plan: #1 episode of chest pain: ND ruled out. Troponins negative 3 sets. EKG on presentation reveals normal sinus rhythm without any acute ischemic changes. Cardiology following. Currently off of the IV heparin. Echo shows an EF of 50- 55% with moderate mitral regurgitation and moderate mitral valve prolapse. Cardiology recommending stress test outpatient when her lungs clear. Cardiology has signed off #2 acute COPD exacerbation continue IV steroids and bronchodilators. Patient has shown improvement. We'll switch her over to oral prednisone and discontinue the IV steroids. Continue bronchodilators #3 acute purulent bronchitis continue Rocephin and azithromycin #4 underlying history of hypertension well-controlled continue was current blood pressure medications patient is maintained on Cardizem #5 paroxysmal atrial fibrillation, patient not on anticoagulation because of history of bleeding #6 history of hepatitis C with mild elevation of LFTs #7 abdominal discomfort with known history of ovarian cyst area patient evaluated by [facility] service. They felt of the ovarian cyst was not contributing to her pain. He'll follow-up with her outpatient #8 abdominal pain likely secondary to constipation. Evaluated by surgical service. They've ordered hammad-citrate. Patient still has not had a bowel movement. We'll add lactulose 30 mL 1. Encouraged to drink prune juice. We' ll monitor bowel movement #9 generalized anxiety disorder will add Xanax 0.25 mg twice a day as needed We'll transfer patient to regular medical floor without telemetry DVT prophylaxis SCDs and ambulation I performed an examination of the patient and discussed their management with the physician Legal Instruments Examiner. I have reviewed the Physician Legal Instruments Examiner's notes and agree with the documented findings and plan of care
--- NOTE | 2017-02-09 14:06 | P.PN ---
Subjective Principal diagnosis: AECOPD Patient seen and examined. Patient states her breathing is at baseline. She is still having abdominal pain which appears to be chronic. She denies fever and chills. She has not yet had a BM. Objective - Vital Signs Vital signs: Vital Signs Temp 97.4 F L 02/09/17 08:00 Pulse 80 02/09/17 13:15 Resp 17 02/09/17 03:22 BP 135/79 02/09/17 08:00 Pulse Ox 97 02/09/17 08:00 Intake & Output 02/08/17 02/09/17 02/09/17 18:59 06:59 18:59 Intake Total 940 240 Output Total 600 Balance 940 -600 240 Weight 49.5 kg Intake: Intake, IV Titration 460 Amount Azithromycin 500 mg In 250 Sodium Chloride 0.9% 250 ml @ 125 mls/hr IVPB DAILY ROXY Rx#:[id number] Sodium Chloride 0.9% 1, 160 000 ml @ 20 mls/hr IV . Q24H ROXY Rx#:[id number] cefTRIAXone 1,000 mg In 50 Sodium Chloride 0.9% 50 ml @ 100 mls/hr IVPB Q24HR ROXY Rx#:[id number] Oral 480 240 Output: Urine 600 Other: Voiding Method Toilet # Voids 1 - Exam Gen.: Patient is alert and oriented 3, no acute distress Cardiovascular: Regular rate and rhythm, S1/S2 Lungs: Scattered wheezing, markedly improved, improved air exchange Abdomen: Soft nontender nondistended positive bowel sounds Extremities: Trace edema - Labs CBC & Chem 7: 02/09/17 05:41 02/09/17 05:41 Labs: Abnormal Lab Results - Last 24 Hours (Table) 02/08/17 02/08/17 02/09/17 Range/Units 17:45 20:50 05:41 Neutrophils # 9.1 H (1.3-7.7) k/uL Lymphocytes # 0.7 L (1.0-4.8) k/uL Sodium (137-145) mmol/L BUN (7-17) mg/dL Creatinine (0.52-1.04) mg/dL Glucose (74-99) mg/dL POC Glucose (mg/dL) 136 H 118 H (75-99) mg/dL AST (14-36) U/L ALT (9-52) U/L 02/09/17 02/09/17 Range/Units 05:41 05:45 Neutrophils # (1.3-7.7) k/uL Lymphocytes # (1.0-4.8) k/uL Sodium 136 L (137-145) mmol/L BUN 18 H (7-17) mg/dL Creatinine 0.38 L (0.52-1.04) mg/dL Glucose 183 H (74-99) mg/dL POC Glucose (mg/dL) 182 H (75-99) mg/dL AST 37 H (14-36) U/L ALT 78 H (9-52) U/L Microbiology - Last 24 Hours (Table) 02/07/17 17:33 Gram Stain - Preliminary Sputum Sputum Culture - Preliminary Gram Neg Bacilli Assessment and Plan Plan: Acute on chronic hypoxic respiratory failure Acute exacerbation of COPD Bronchospasm Tracheobronchitis History of congestive heart failure, diastolic, ejection fraction 50-55% Chest pain History of tobacco abuse Hypertension GERD History of ND, mitral valve prolapse History of paroxysmal atrial fibrillation O2 to maintain saturation greater than equal to 88% Pulmicort and duo nebs Steroid taper Antibiotics: Rocephin, add Azithromycin Sputum culture pending Heparin drip per cardiology Singulair Mucinex Continued smoking cessation is recommended Patient has home oxygen Cardiology recommendations, plan for outpatient stress test Incentive spirometry and pulmonary hygiene GI and DVT prophylaxis Ok to DC from pulmonary standpoint. Follow up in pulm office next week.
[2017-02-09] MEDS: CHOLECALCIFEROL 1,000 UNIT TAB PO SCH (14:44)
[2017-02-09] MEDS: ALPRAZolam 0.25 MG TAB PO PRN (14:45)
[2017-02-09] MEDS: predniSONE 20 MG TAB PO SCH (14:45)
[2017-02-09] MEDS: SODIUM CHLORIDE 0.9% 1,000 ML IV SCH (14:48)
--- NOTE | 2017-02-09 15:59 | P.PN ---
Subjective Principal diagnosis: abdominal pain Patient seems to be doing somewhat better this afternoon. She did have a large bowel movement earlier today. She still complains of some bloating. She is tolerating her diet. She is ambulating. Objective - Vital Signs Vital signs: Vital Signs Temp 97.4 F L 02/09/17 08:00 Pulse 91 02/09/17 15:00 Resp 17 02/09/17 03:22 BP 116/67 02/09/17 15:00 Pulse Ox 97 02/09/17 15:00 Intake & Output 02/08/17 02/09/17 02/09/17 18:59 06:59 18:59 Intake Total 940 290 Output Total 600 Balance 940 -600 290 Weight 49.5 kg 90.1 kg Intake: Intake, IV Titration 460 50 Amount Azithromycin 500 mg In 250 0 Sodium Chloride 0.9% 250 ml @ 125 mls/hr IVPB DAILY ROXY Rx#:[id number] Sodium Chloride 0.9% 1, 160 000 ml @ 20 mls/hr IV . Q24H ROXY Rx#:[id number] cefTRIAXone 1,000 mg In 50 50 Sodium Chloride 0.9% 50 ml @ 100 mls/hr IVPB Q24HR ROXY Rx#:[id number] Oral 480 240 Output: Urine 600 Other: Voiding Method Toilet # Voids 1 - Exam Abdomen: Soft, mild distention, nontender - Labs CBC & Chem 7: 02/09/17 05:41 02/09/17 05:41 Labs: Abnormal Lab Results - Last 24 Hours (Table) 02/08/17 02/08/17 02/09/17 Range/Units 17:45 20:50 05:41 Neutrophils # 9.1 H (1.3-7.7) k/uL Lymphocytes # 0.7 L (1.0-4.8) k/uL Sodium (137-145) mmol/L BUN (7-17) mg/dL Creatinine (0.52-1.04) mg/dL Glucose (74-99) mg/dL POC Glucose (mg/dL) 136 H 118 H (75-99) mg/dL AST (14-36) U/L ALT (9-52) U/L 02/09/17 02/09/17 Range/Units 05:41 05:45 Neutrophils # (1.3-7.7) k/uL Lymphocytes # (1.0-4.8) k/uL Sodium 136 L (137-145) mmol/L BUN 18 H (7-17) mg/dL Creatinine 0.38 L (0.52-1.04) mg/dL Glucose 183 H (74-99) mg/dL POC Glucose (mg/dL) 182 H (75-99) mg/dL AST 37 H (14-36) U/L ALT 78 H (9-52) U/L Microbiology - Last 24 Hours (Table) 02/07/17 17:33 Gram Stain - Preliminary Sputum Sputum Culture - Preliminary Gram Neg Bacilli Assessment and Plan (1) Constipation Narrative/Plan: Continue stool softeners. Continue diet as tolerated. Question whether some component of the patient's abdominal swelling could be fluid overload related. Status: Acute
[2017-02-09 17:21] LABS: Glucose,Whole Blood 139 mg/dL (75-99)
[2017-02-09] MEDS: MONTELUKAST 10 MG TAB PO SCH (20:46)
[2017-02-09] MEDS: MELATONIN 1 MG TAB PO SCH (20:46)
[2017-02-09] MEDS: DILTIAZEM CD 240 MG CAP.ER.24H PO SCH (20:46)
[2017-02-09] MEDS: PRAMIPEXOLE 0.5 MG TAB PO SCH (20:46)
[2017-02-09 20:59] LABS: Glucose,Whole Blood 125 mg/dL (75-99)
[2017-02-09] MEDS: ZOLPIDEM 5 MG TAB PO PRN (22:04)
[2017-02-10] MEDS: HYDROmorphone 1 MG/ML 1 ML SYRINGE IVP PRN ×5 (03:19→20:20)
[2017-02-10] MEDS: IPRATROPIUM-ALBUTEROL 3 ML NEB INHALATION PRN (05:04)
[2017-02-10] MEDS: HYDROcodone/APAP 10-325MG 1 EACH TAB PO PRN ×4 (05:15→21:00)
[2017-02-10] MEDS: ALPRAZolam 0.25 MG TAB PO PRN ×2 (05:15→12:16)
[2017-02-10 07:21] LABS: Glucose,Whole Blood 83 mg/dL (75-99)
[2017-02-10] MEDS: SENNOSIDES-DOCUSATE SODIUM 1 EACH TAB PO SCH ×2 (08:11→20:16)
[2017-02-10] MEDS: INSULIN LISPRO (humaLOG) 300 UNIT/3 ML VIAL SQ SCH ×4 (08:11→21:00)
[2017-02-10] MEDS: PANTOPRAZOLE 40 MG TABLET PO SCH ×2 (08:12→17:52)
[2017-02-10] MEDS: CHOLECALCIFEROL 1,000 UNIT TAB PO SCH (08:15)
[2017-02-10] MEDS: ASPIRIN 325 MG TAB PO SCH (08:15)
[2017-02-10] MEDS: guaiFENesin 600 MG TABLET.ER PO SCH ×2 (08:15→20:13)
[2017-02-10] MEDS: AZITHROMYCIN 500 MG TAB PO SCH (08:16)
[2017-02-10] MEDS: predniSONE 20 MG TAB PO SCH (08:16)
[2017-02-10] MEDS: BUDESONIDE 0.5 MG/2 ML NEBU INHALATION SCH ×2 (08:26→20:26)
[2017-02-10] MEDS: IPRATROPIUM-ALBUTEROL 3 ML NEB INHALATION SCH ×4 (08:26→20:26)
[2017-02-10 09:04] LABS: Basophils % (A) 0 %; CH 30.5; CHCM 31.7; Eosinophils % (A) 0 %; HGB 13.4 gm/dL (11.4-16.0); Luc # (Auto) 0.39; Luc % (Auto) 3; Lymphocytes # (A) 1.8 k/uL (1.0-4.8); Lymphocytes % (A) 16 %; MCH 32.3 pg (25.0-35.0); MCHC 33.5 g/dL (31.0-37.0); MCV 96.5 fL (80.0-100.0); Monocytes # (A) 0.5 k/uL (0-1.0); Monocytes % (A) 5 %; Neutrophils # (A) 8.7 k/uL (1.3-7.7); Neutrophils % (A) 76 %; RBC 4.15 m/uL (3.80-5.40); RDW 13.6 % (11.5-15.5); WBC 11.4 k/uL (3.8-10.6); WBC (Perox) 12.06
[2017-02-10 09:24] LABS: ALT 167 U/L (9-52); AST 72 U/L (14-36); Alkaline Phosphatase 84 U/L (38-126); Anion Gap 11 mmol/L; Blood Urea Nitrogen 19 mg/dL (7-17); Calcium 9.2 mg/dL (8.4-10.2); Carbon Dioxide 29 mmol/L (22-30); Chloride 98 mmol/L (98-107); Glucose 129 mg/dL (74-99); Non-African American GFR(MDRD) >60 (>60 ml/min/1.73 sqM); Potassium 4.1 mmol/L (3.5-5.1); Sodium 138 mmol/L (137-145); Total Bilirubin 0.6 mg/dL (0.2-1.3); Total Protein 6.8 g/dL (6.3-8.2)
--- NOTE | 2017-02-10 11:36 | CONS ---
HISTORY OF PRESENT ILLNESS: Patient is a 61-year-old female well known to our practice who saw Dr. Webster last week for fatigue and worsening shortness of breath and is requesting steroids. Patient was put on a weaning dose of prednisone and did not seem to get any better. States yesterday she started to experience chest pain as well, rated 4-6 out of 10 with associated shortness of breath with no relief from home respiratory treatments. The patient also having some issues with weight gain, lower extremity swelling; however, no swelling at this time. Concerned that maybe her heart is acting up. Patient does have a history of paroxysmal a. fib as well. Patient states that she got so out of breath at home with an ongoing nonproductive dry cough, couldn't get her breath even on oxygen and associated chest pain. She came to the ER for further evaluation and was admitted with acute exacerbation of COPD. PAST MEDICAL HISTORY: Positive for congestive heart failure, COPD, asthma, mitral valve prolapse, chronic pain with narcotic dependence, history of chest wall injury in 2012 from an air bag, history of anxiety, depression, PTSD, paroxysmal a. fib, hepatitis C with liver disease. PAST SURGICAL HISTORY: Three C-sections, laparoscopic cholecystectomy and ( ) colon surgery. ALLERGIES: TRICYCLIC COMPOUNDS. Medications patient takes at home includes Mirapex 0.5 mg p.o. q.h.s., Ventolin HFA one to two puffs q. six hours p.r.n., albuterol via nebulizer 2.5 mg q.i.d. , Spiriva 18 mcg daily via inhalation, Flonase one spray each nostril daily p.r.n., vitamin D3, 2000 units p.o. daily; Cardizem CD 240 mg p.o. q.h.s., omeprazole 20 mg p.o. b.i.d., Qvar 80 mcg b.i.d., [place] 10/325 q. 6 hours p.r.n. , aspirin 325 (I'm not sure how patient takes that), melatonin 1 mg p.o. q .h.s. and prednisone taper patient had been started on a week ago. FAMILY HISTORY: Mother positive history of coronary artery disease and cancer, father positive history of coronary artery disease and cancer as well. SOCIAL HISTORY: The patient does have a history of smoking one pack per day times 40 years, quit in 2012. Uses marijuana for medical purposes. Denies alcohol use. REVIEW OF SYSTEMS: GENERAL: Negative for any fever or chills although patient does verbalize feeling sweaty and hot. HEENT: Negative for headaches or dizziness. Does complain of double and blurred vision which has been ongoing for approximately two months. Also, has difficulty hearing, does not wear hearing aids. Has seasonal allergies with rhinitis. Denies any sore throat or difficulty swallowing. RESPIRATORY: Positive for worsening shortness of breath with a dry, nonproductive cough. Denies hemoptysis. CARDIOVASCULAR: Positive for chest pain anywhere from a 4-6 out of 10, worse with exertion as well as palpitations. Patient states her heart rate at home with exertion gets up into the 130's. GI: Negative for stomach pain, nausea, vomiting, diarrhea or constipation. : Patient does complain of some right lower quad abdominal discomfort from a cyst and/or fibroid on the right side. 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 ENDOCRINE: Negative for diabetes mellitus or thyroid disease. MUSCULOSKELETAL: Positive for arthritis and chronic pain. NEURO: Negative for any history of seizures or neuropathy. PSYCHIATRIC: Positive for anxiety and depression. PHYSICAL EXAMINATION: GENERAL: This is a pleasant, cooperative 61-year-old female. VITAL SIGNS: Temp is 96.8, heart rate is 84, respiratory rate is 20, blood pressure is 142/70, 02 sat is 96% on 2 liters 02 via nasal cannula. HEENT: Head is normocephalic, atraumatic. Pupils equal, round, react to light. Ears and nose, no discharge is noted. Mouth, moist mucous membranes. Mallampati is a Class 4, unable to visualize the back of patient's throat. NECK: Supple. Trachea is midline. LUNGS: With decreased breath sounds with prolonged expiratory phase. No clear rales or wheezes. HEART: S1 and S2 are heard, slightly irregular, not tachycardiac. ABDOMEN: Soft. Bowel sounds are heard. EXTREMITIES: No edema. NEUROLOGIC: Patient is alert and oriented x3. LABS: White count is 10.5, hemoglobin is 15.0, hematocrit is 43.2 with 244,000 platelets. PT is 10.5, INR is 1.0, PTT is 26.3. D-dimer is less than 0.17. Sodium is 138, potassium is 4.1, chloride is 95, CO2 is 30. Anion gap is 13. BUN is 12, creatinine 0.40. Glucose is 78. Calcium is 9.5. Magnesium is 1.8. Total bilirubin 0.5, AST is 23, ALT is 49, alk phos 105. Total CK 36, MB is 1.6, relative index is 4.4, troponin is less than 0.012. BNP is 307, total protein 7.6, albumin is 4.6. Chest x-ray shows COPD. EKG shows sinus rhythm with occasional premature ventricular complexes. IMPRESSION: 1. Chronic obstructive pulmonary disease and asthma with acute exacerbation. 2. Chest pain, unknown etiology. 3. History of paroxysmal atrial fibrillation. PLAN: Patient is being treated with bronchodilators. Will add aerosoled steroids, Pulmicort 0.5 mg via nebulizer b.i.d. Will add Singulair 10 mg p.o. q.h.s. Will order an echocardiogram with Doppler. Will consult cardiology, check thyroid functions with a TSH and free T4. Patient will also receive IV Solu-Medrol 60 q6. Is currently on a heparin drip, continue GI prophylaxis and we will follow patient closely with you making further changes as necessary. Thank you for the consultation. TRISH
--- NOTE | 2017-02-10 11:45 | P.PN ---
Subjective Patient presented with chest pain shortness of breath. She was found have evidence of a COPD exacerbation and bronchitis. Patient's shortness of breath and wheezing are showing improvement. She's no other having chest pain. Denies any nausea or vomiting. Reports having regular bowel movements. Denies any difficulty with urinating. Patient reports having some abdominal distention and more pain in her abdomen especially the right lower quadrant. A computed tomography scan of the abdomen and pelvis completed shows no bowel obstruction. Thickening of some small bowel loops. Correlate for enteritis. Overall generalized bowel distention without obstruction suspected also noted a left adnexal cyst patient reports that she has ovarian cysts and fibroids of the uterus that have been causing a lot of her abdominal pain. A CONVENTION WORKER consult was placed 02/09/2017 patient's shortness of breath and cough are showing improvement. Patient was crying when I entered the room to reexamine her with Dr. Lock. She states that the steroids do this to her. She's also being treated for constipation. She was given mag citrate with no bowel movement yet. Still complaining of abdominal discomfort. No nausea or vomiting. Denies any chest pain or shortness of breath. Denies any burning with urination on 02/10/2017 patient is complaining of back pain and abdominal pain she is also complaining of perirectal pain, she had multiple bowel movements in the last 24 hours. There was more elevation in liver enzymes since yesterday. Sputum culture is now positive for pseudomonas aeruginosa Objective - Vital Signs Vital signs: Vital Signs Temp 97.8 F 02/10/17 07:00 Pulse 84 02/10/17 08:48 Resp 16 02/10/17 07:00 BP 150/70 02/10/17 07:00 Pulse Ox 95 02/10/17 07:00 Intake & Output 02/09/17 02/10/17 02/10/17 18:59 06:59 18:59 Intake Total 290 200 Balance 290 200 Weight 90.1 kg Intake: Intake, IV Titration 50 Amount Azithromycin 500 mg In 0 Sodium Chloride 0.9% 250 ml @ 125 mls/hr IVPB DAILY ROXY Rx#:[id number] cefTRIAXone 1,000 mg In 50 Sodium Chloride 0.9% 50 ml @ 100 mls/hr IVPB Q24HR ROXY Rx#:[id number] Oral 240 200 Other: Voiding Method Toilet # Voids 1 - Exam In general patient is alert and oriented 3 in no apparent distress HEENT head normocephalic and atraumatic Neck is supple no JVD no goiter no lymphadenopathy Chest exam reveals a few scattered crackles in both bases no wheezing Cardiac exam reveals regular heart sounds no gallops no murmurs Abdomen is soft nontender no organomegaly with normal bowel sounds Extremity exam reveals no edema no cyanosis or clubbing - Labs CBC & Chem 7: 02/10/17 08:29 02/10/17 08:29 Labs: Abnormal Lab Results - Last 24 Hours (Table) 02/09/17 02/09/17 02/10/17 Range/Units 17:18 20:45 08:29 WBC 11.4 H (3.8-10.6) k/uL Neutrophils # 8.7 H (1.3-7.7) k/uL BUN (7-17) mg/dL Creatinine (0.52-1.04) mg/dL Glucose (74-99) mg/dL POC Glucose (mg/dL) 139 H 125 H (75-99) mg/dL AST (14-36) U/L ALT (9-52) U/L 02/10/17 Range/Units 08:29 WBC (3.8-10.6) k/uL Neutrophils # (1.3-7.7) k/uL BUN 19 H (7-17) mg/dL Creatinine 0.41 L (0.52-1.04) mg/dL Glucose 129 H (74-99) mg/dL POC Glucose (mg/dL) (75-99) mg/dL AST 72 H (14-36) U/L ALT 167 H (9-52) U/L Microbiology - Last 24 Hours (Table) 02/07/17 17:33 Gram Stain - Final Sputum Sputum Culture - Final Pseudomonas aeruginosa Assessment and Plan Plan: #1 episode of chest pain so far cardiac enzymes are negative, EKG on presentation reveals normal sinus rhythm without any acute ischemic changes patient was started on IV heparin cardiology consultation was requested #2 known history of chronic obstructive pulmonary disease with evidence of acute exacerbation, currently maintained on IV steroids inhaled bronchodilators and inhaled steroids will continue #3 acute purulent bronchitis started on IV Rocephin 1 g every 24 hours with continue, sputum culture is positive for pseudomonas aeruginosa will switch antibiotic to IV Zosyn Will recheck chest x-ray #4 underlying history of hypertension well-controlled continue was current blood pressure medications patient is maintained on Cardizem #5 unclear history of congestive heart failure patient had an echo a few days ago as outpatient Will obtain the results #6 elevated liver enzymes, enzymes are up since yesterday, will monitor, Patient is status post cholecystectomy in October of this he Will follow during this hospitalization for medical management cardiology and pulmonary consultation were requested
[2017-02-10 12:07] LABS: Glucose,Whole Blood 93 mg/dL (75-99)
--- NOTE | 2017-02-10 12:48 | P.PN ---
Subjective Principal diagnosis: Abdominal pain The patient had been seen by Dr. Elam. It was felt part of her pain was due to constipation along with edema due to some congestive heart failure. She did begin stooling and passing a large amount of flatus. She's complaining of pain in the lower abdomen bilaterally, the low back, the perianal area feels like there is something sticking straight up. No rectal bleeding with a bowel movement. Objective - Vital Signs Vital signs: Vital Signs Temp 97.8 F 02/10/17 07:00 Pulse 84 02/10/17 12:14 Resp 16 02/10/17 07:00 BP 150/70 02/10/17 07:00 Pulse Ox 95 02/10/17 07:00 Intake & Output 02/09/17 02/10/17 02/10/17 18:59 06:59 18:59 Intake Total 290 200 Balance 290 200 Weight 90.1 kg Intake: Intake, IV Titration 50 Amount Azithromycin 500 mg In 0 Sodium Chloride 0.9% 250 ml @ 125 mls/hr IVPB DAILY ROXY Rx#:[id number] cefTRIAXone 1,000 mg In 50 Sodium Chloride 0.9% 50 ml @ 100 mls/hr IVPB Q24HR ROXY Rx#:[id number] Oral 240 200 Other: Voiding Method Toilet # Voids 1 - Constitutional General appearance: Present: cooperative, no acute distress - Gastrointestinal General gastrointestinal: Present: normal bowel sounds, soft, tenderness (Mild nonspecific tenderness without guarding or rebound) - Additional findings Additional findings: The perianal area is unremarkable. No masses on digital rectal exam. No blood on the examining glove. No significant tenderness with digital rectal exam. - Labs CBC & Chem 7: 02/10/17 08:29 02/10/17 08:29 Labs: Abnormal Lab Results - Last 24 Hours (Table) 02/09/17 02/09/17 02/10/17 Range/Units 17:18 20:45 08:29 WBC 11.4 H (3.8-10.6) k/uL Neutrophils # 8.7 H (1.3-7.7) k/uL BUN (7-17) mg/dL Creatinine (0.52-1.04) mg/dL Glucose (74-99) mg/dL POC Glucose (mg/dL) 139 H 125 H (75-99) mg/dL AST (14-36) U/L ALT (9-52) U/L 02/10/17 Range/Units 08:29 WBC (3.8-10.6) k/uL Neutrophils # (1.3-7.7) k/uL BUN 19 H (7-17) mg/dL Creatinine 0.41 L (0.52-1.04) mg/dL Glucose 129 H (74-99) mg/dL POC Glucose (mg/dL) (75-99) mg/dL AST 72 H (14-36) U/L ALT 167 H (9-52) U/L Microbiology - Last 24 Hours (Table) 02/07/17 17:33 Gram Stain - Final Sputum Sputum Culture - Final Pseudomonas aeruginosa Assessment and Plan (1) Constipation by delayed colonic transit Status: Acute (2) Abdominal pain Status: Acute Plan: Surgically the patient has a benign abdomen. There may be some abdominal discomfort due to some generalized bowel wall edema. Currently nonsurgical.
[2017-02-10] MEDS: PIPERACILLIN-TAZOBACTAM 3.375 GM in DEXTROSE/WATER 1 50ML.BAG IVPB SCH ×2 (13:02→20:12)
--- NOTE | 2017-02-10 13:02 | XR ---
EXAMINATION TYPE: XR chest 2V DATE OF EXAM: 02/10/2017 COMPARISON: NONE INDICATION: Chest pain shortness of breath TECHNIQUE: Frontal and lateral views of the chest are obtained. FINDINGS: The heart size is normal. The pulmonary vasculature is normal. The lungs are clear. Hyperinflation flattening the diaphragms with an increased retrosternal airspac e is compatible COPD. IMPRESSION: 1. No acute pulmonary process. 2. COPD
[2017-02-10] MEDS: SODIUM CHLORIDE 0.9% 1,000 ML IV SCH (14:56)
[2017-02-10 17:19] LABS: Glucose,Whole Blood 139 mg/dL (75-99)
--- NOTE | 2017-02-10 17:49 | P.PN ---
Subjective Principal diagnosis: copd with exacerbation chf ascites o/e vss chest diminished breATH SOUNDS CVS RRR EDEMA= MEDS AND LABS REVIEWED .cONTINUE CURRENT MEDS WHICH WERE REVIEWED Objective - Vital Signs Vital signs: Vital Signs Temp 98.9 F 02/10/17 15:00 Pulse 80 02/10/17 16:15 Resp 24 02/10/17 15:00 BP 133/85 02/10/17 15:00 Pulse Ox 95 02/10/17 15:00 Intake & Output 02/09/17 02/10/17 02/10/17 18:59 06:59 18:59 Intake Total 290 200 Balance 290 200 Weight 90.1 kg Intake: Intake, IV Titration 50 Amount Azithromycin 500 mg In 0 Sodium Chloride 0.9% 250 ml @ 125 mls/hr IVPB DAILY ROXY Rx#:[id number] cefTRIAXone 1,000 mg In 50 Sodium Chloride 0.9% 50 ml @ 100 mls/hr IVPB Q24HR ROXY Rx#:[id number] Oral 240 200 Other: Voiding Method Toilet Toilet # Voids 1 2 - Labs CBC & Chem 7: 02/10/17 08:29 02/10/17 08:29 Labs: Abnormal Lab Results - Last 24 Hours (Table) 02/09/17 02/10/17 02/10/17 Range/Units 20:45 08:29 08:29 WBC 11.4 H (3.8-10.6) k/uL Neutrophils # 8.7 H (1.3-7.7) k/uL BUN 19 H (7-17) mg/dL Creatinine 0.41 L (0.52-1.04) mg/dL Glucose 129 H (74-99) mg/dL POC Glucose (mg/dL) 125 H (75-99) mg/dL AST 72 H (14-36) U/L ALT 167 H (9-52) U/L 02/10/17 Range/Units 17:17 WBC (3.8-10.6) k/uL Neutrophils # (1.3-7.7) k/uL BUN (7-17) mg/dL Creatinine (0.52-1.04) mg/dL Glucose (74-99) mg/dL POC Glucose (mg/dL) 139 H (75-99) mg/dL AST (14-36) U/L ALT (9-52) U/L Microbiology - Last 24 Hours (Table) 02/07/17 17:33 Gram Stain - Final Sputum Sputum Culture - Final Pseudomonas aeruginosa
[2017-02-10] MEDS: DILTIAZEM CD 240 MG CAP.ER.24H PO SCH (20:13)
[2017-02-10] MEDS: MONTELUKAST 10 MG TAB PO SCH (20:13)
[2017-02-10] MEDS: PRAMIPEXOLE 0.5 MG TAB PO SCH (20:14)
[2017-02-10] MEDS: MELATONIN 1 MG TAB PO SCH (20:14)
[2017-02-10 20:48] LABS: Glucose,Whole Blood 113 mg/dL (75-99)
[2017-02-10] MEDS: ZOLPIDEM 5 MG TAB PO PRN (22:29)
[2017-02-11] MEDS: HYDROmorphone 1 MG/ML 1 ML SYRINGE IVP PRN ×7 (02:04→23:22)
[2017-02-11] MEDS: HYDROcodone/APAP 10-325MG 1 EACH TAB PO PRN ×4 (03:01→21:22)
[2017-02-11] MEDS: PIPERACILLIN-TAZOBACTAM 3.375 GM in DEXTROSE/WATER 1 50ML.BAG IVPB SCH ×3 (04:43→20:02)
[2017-02-11] MEDS: IPRATROPIUM-ALBUTEROL 3 ML NEB INHALATION SCH ×4 (06:44→19:58)
[2017-02-11] MEDS: BUDESONIDE 0.5 MG/2 ML NEBU INHALATION SCH ×2 (06:44→19:58)
[2017-02-11 07:20] LABS: Glucose,Whole Blood 73 mg/dL (75-99)
[2017-02-11] MEDS: INSULIN LISPRO (humaLOG) 300 UNIT/3 ML VIAL SQ SCH ×4 (07:27→20:47)
[2017-02-11] MEDS: PANTOPRAZOLE 40 MG TABLET PO SCH ×2 (07:40→17:37)
[2017-02-11] MEDS: SENNOSIDES-DOCUSATE SODIUM 1 EACH TAB PO SCH ×2 (07:40→20:02)
[2017-02-11] MEDS: ASPIRIN 325 MG TAB PO SCH (07:41)
[2017-02-11] MEDS: guaiFENesin 600 MG TABLET.ER PO SCH ×2 (07:41→20:02)
[2017-02-11] MEDS: predniSONE 20 MG TAB PO SCH (07:41)
[2017-02-11] MEDS: ALPRAZolam 0.25 MG TAB PO PRN ×2 (07:43→18:59)
[2017-02-11 08:14] LABS: Basophils % (A) 0 %; CH 30.5; CHCM 31.5; Eosinophils # (A) 0.1 k/uL (0-0.7); Eosinophils % (A) 1 %; HCT 42.6 % (34.0-46.0); HDW 2.33; HGB 14.4 gm/dL (11.4-16.0); Luc # (Auto) 0.29; Luc % (Auto) 3; Lymphocytes # (A) 2.4 k/uL (1.0-4.8); Lymphocytes % (A) 25 %; MCH 32.9 pg (25.0-35.0); MCHC 33.8 g/dL (31.0-37.0); MCV 97.3 fL (80.0-100.0); Monocytes # (A) 0.5 k/uL (0-1.0); Monocytes % (A) 5 %; Neutrophils # (A) 6.3 k/uL (1.3-7.7); Neutrophils % (A) 66 %; RBC 4.38 m/uL (3.80-5.40); RDW 13.6 % (11.5-15.5); WBC 9.6 k/uL (3.8-10.6); WBC (Perox) 10.27
[2017-02-11 08:26] LABS: ALT 281 U/L (9-52); AST 108 U/L (14-36); Alkaline Phosphatase 121 U/L (38-126); Anion Gap 8 mmol/L; Blood Urea Nitrogen 15 mg/dL (7-17); Calcium 9.2 mg/dL (8.4-10.2); Carbon Dioxide 32 mmol/L (22-30); Chloride 96 mmol/L (98-107); Glucose 103 mg/dL (74-99); Non-African American GFR(MDRD) >60 (>60 ml/min/1.73 sqM); Potassium 4.3 mmol/L (3.5-5.1); Sodium 136 mmol/L (137-145); Total Bilirubin 0.5 mg/dL (0.2-1.3)
[2017-02-11] MEDS: CHOLECALCIFEROL 1,000 UNIT TAB PO SCH (11:35)
[2017-02-11 11:53] LABS: Glucose,Whole Blood 176 mg/dL (75-99)
--- NOTE | 2017-02-11 13:49 | P.PN ---
Subjective Patient presented with chest pain shortness of breath. She was found have evidence of a COPD exacerbation and bronchitis. Patient's shortness of breath and wheezing are showing improvement. She's no other having chest pain. Denies any nausea or vomiting. Reports having regular bowel movements. Denies any difficulty with urinating. Patient reports having some abdominal distention and more pain in her abdomen especially the right lower quadrant. A computed tomography scan of the abdomen and pelvis completed shows no bowel obstruction. Thickening of some small bowel loops. Correlate for enteritis. Overall generalized bowel distention without obstruction suspected also noted a left adnexal cyst patient reports that she has ovarian cysts and fibroids of the uterus that have been causing a lot of her abdominal pain. 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 Patient was crying when I entered the room to reexamine her with Dr. Lock. She states that the steroids do this to her. She's also being treated for constipation. She was given mag citrate with no bowel movement yet. Still complaining of abdominal discomfort. No nausea or vomiting. Denies any chest pain or shortness of breath. Denies any burning with urination on 02/10/2017 patient is complaining of back pain and abdominal pain she is also complaining of perirectal pain, she had multiple bowel movements in the last 24 hours. There was more elevation in liver enzymes since yesterday. Sputum culture is now positive for pseudomonas aeruginosa Objective - Vital Signs Vital signs: Vital Signs Temp 97.9 F 02/11/17 07:00 Pulse 88 02/11/17 11:25 Resp 18 02/11/17 11:16 BP 123/73 02/11/17 07:00 Pulse Ox 96 02/11/17 07:00 Intake & Output 02/10/17 02/11/17 02/11/17 18:59 06:59 18:59 Intake Total 840 Balance 840 Intake: Oral 840 Other: Voiding Method Toilet Toilet Toilet # Voids 2 1 1 - Exam In general patient is alert and oriented 3 in no apparent distress HEENT head normocephalic and atraumatic Neck is supple no JVD no goiter no lymphadenopathy Chest exam reveals a few scattered crackles in both bases no wheezing Cardiac exam reveals regular heart sounds no gallops no murmurs Abdomen is soft nontender no organomegaly with normal bowel sounds Extremity exam reveals no edema no cyanosis or clubbing - Labs CBC & Chem 7: 02/11/17 07:44 02/11/17 07:44 Labs: Abnormal Lab Results - Last 24 Hours (Table) 02/10/17 02/10/17 02/11/17 Range/Units 17: 20:44 06:53 Sodium (137-145) mmol/L Chloride (98-107) mmol/L Carbon Dioxide (22-30) mmol/L Glucose (74-99) mg/dL POC Glucose (mg/dL) 139 H 113 H 73 L (75-99) mg/dL AST (14-36) U/L ALT (9-52) U/L 02/11/17 02/11/17 Range/Units 07:44 11:47 Sodium 136 L (137-145) mmol/L Chloride 96 L (98-107) mmol/L Carbon Dioxide 32 H (22-30) mmol/L Glucose 103 H (74-99) mg/dL POC Glucose (mg/dL) 176 H (75-99) mg/dL AST 108 H (14-36) U/L ALT 281 H (9-52) U/L Assessment and Plan Plan: #1 episode of chest pain so far cardiac enzymes are negative, EKG on presentation reveals normal sinus rhythm without any acute ischemic changes patient was started on IV heparin cardiology consultation was requested #2 known history of chronic obstructive pulmonary disease with evidence of acute exacerbation, currently maintained on IV steroids inhaled bronchodilators and inhaled steroids will continue #3 acute purulent bronchitis started on IV Rocephin 1 g every 24 hours with continue, sputum culture is positive for pseudomonas aeruginosa will switch antibiotic to IV Zosyn Will recheck chest x-ray #4 underlying history of hypertension well-controlled continue was current blood pressure medications patient is maintained on Cardizem #5 unclear history of congestive heart failure patient had an echo a few days ago as outpatient Will obtain the results #6 elevated liver enzymes, enzymes are up since yesterday, will monitor, Patient is status post cholecystectomy in October of this year, will check liver ultrasound consult Dr. Macedo Will follow during this hospitalization for medical management cardiology and pulmonary consultation were requested
[2017-02-11] MEDS: SODIUM CHLORIDE 0.9% 1,000 ML IV SCH (15:24)
[2017-02-11 17:02] LABS: Glucose,Whole Blood 159 mg/dL (75-99)
[2017-02-11 17:22] LABS: Hepatitis B Surface Ag Index 0.05
[2017-02-11 17:39] LABS: Hepatitis B Surface Antibody POSITIVE (Negative); Hepatitis C Virus IgG Ab Reactive (Negative)
--- NOTE | 2017-02-11 18:58 | P.PN ---
Subjective Principal diagnosis: copd with exacerbation chf ascites o/e vss chest diminished breATH SOUNDS CVS RRR EDEMA= MEDS AND LABS REVIEWED .cONTINUE CURRENT MEDS WHICH WERE REVIEWED less dyspnea sputum is growing pseudomonas Objective - Vital Signs Vital signs: Vital Signs Temp 98.0 F 02/11/17 15:00 Pulse 84 02/11/17 15:21 Resp 20 02/11/17 15:00 BP 134/64 02/11/17 15:00 Pulse Ox 97 02/11/17 15:00 Intake & Output 02/10/17 02/11/17 02/11/17 18:59 06:59 18:59 Intake Total 840 Balance 840 Intake: Oral 840 Other: Voiding Method Toilet Toilet Toilet # Voids 2 1 1 - Constitutional General appearance: Present: cooperative, no acute distress, thin - EENT Eyes: Present: PERRLA ENT: Present: hearing grossly normal - Respiratory Respiratory: bilateral: diminished, prolonged expiration, negative: wheezing - Cardiovascular Heart sounds: normal: S1, S2 - Labs CBC & Chem 7: 02/11/17 07:44 02/11/17 07:44 Labs: Abnormal Lab Results - Last 24 Hours (Table) 02/10/17 02/11/17 02/11/17 Range/Units 20:44 06:53 07:44 Sodium 136 L (137-145) mmol/L Chloride 96 L (98-107) mmol/L Carbon Dioxide 32 H (22-30) mmol/L Glucose 103 H (74-99) mg/dL POC Glucose (mg/dL) 113 H 73 L (75-99) mg/dL AST 108 H (14-36) U/L ALT 281 H (9-52) U/L Hep Bs Antibody (Negative) 02/11/17 02/11/17 02/11/17 Range/Units 07:44 11:47 17:01 Sodium (137-145) mmol/L Chloride (98-107) mmol/L Carbon Dioxide (22-30) mmol/L Glucose (74-99) mg/dL POC Glucose (mg/dL) 176 H 159 H (75-99) mg/dL AST (14-36) U/L ALT (9-52) U/L Hep Bs Antibody POSITIVE H (Negative) Assessment and Plan (1) Atypical chest pain Status: Acute (2) COPD with exacerbation Status: Acute (3) Respiratory distress Status: Acute (4) Acute exacerbation of chronic obstructive airways disease Status: Acute Plan: consult id and decide on treatment for pseudomonas which may be colonisation versus pathogen continue current meds which were reviewed
[2017-02-11] MEDS: PRAMIPEXOLE 0.5 MG TAB PO SCH (20:02)
[2017-02-11] MEDS: MONTELUKAST 10 MG TAB PO SCH (20:02)
[2017-02-11] MEDS: MELATONIN 1 MG TAB PO SCH (20:02)
[2017-02-11] MEDS: DILTIAZEM CD 240 MG CAP.ER.24H PO SCH (20:02)
[2017-02-11 20:42] LABS: Glucose,Whole Blood 104 mg/dL (75-99)
[2017-02-11] MEDS: ZOLPIDEM 5 MG TAB PO PRN (21:26)
[2017-02-12 01:02] VITALS: RESP 18
[2017-02-12] MEDS: HYDROmorphone 1 MG/ML 1 ML SYRINGE IVP PRN ×4 (03:45→14:05)
[2017-02-12] MEDS: PIPERACILLIN-TAZOBACTAM 3.375 GM in DEXTROSE/WATER 1 50ML.BAG IVPB SCH ×2 (03:46→11:48)
[2017-02-12] MEDS: HYDROcodone/APAP 10-325MG 1 EACH TAB PO PRN ×2 (03:56→08:13)
[2017-02-12] MEDS: IPRATROPIUM-ALBUTEROL 3 ML NEB INHALATION PRN (04:19)
[2017-02-12] MEDS: BUDESONIDE 0.5 MG/2 ML NEBU INHALATION SCH (07:19)
[2017-02-12] MEDS: IPRATROPIUM-ALBUTEROL 3 ML NEB INHALATION SCH ×2 (07:19→11:18)
[2017-02-12 07:27] LABS: Glucose,Whole Blood 78 mg/dL (75-99)
[2017-02-12 07:40] LABS: ALT 260 U/L (9-52); AST 72 U/L (14-36); Alkaline Phosphatase 80 U/L (38-126); Anion Gap 9 mmol/L; Blood Urea Nitrogen 20 mg/dL (7-17); Calcium 9.2 mg/dL (8.4-10.2); Carbon Dioxide 30 mmol/L (22-30); Chloride 95 mmol/L (98-107); Glucose 82 mg/dL (74-99); Non-African American GFR(MDRD) >60 (>60 ml/min/1.73 sqM); Potassium 4.6 mmol/L (3.5-5.1); Sodium 134 mmol/L (137-145); Total Bilirubin 0.6 mg/dL (0.2-1.3); Total Protein 6.5 g/dL (6.3-8.2)
[2017-02-12 07:41] VITALS: BP 111/60; TEMP 97
[2017-02-12 07:54] LABS: Basophils % (A) 0 %; CH 31.5; Eosinophils # (A) 0.1 k/uL (0-0.7); Eosinophils % (A) 1 %; HCT 41.7 % (34.0-46.0); HDW 2.29; HGB 13.9 gm/dL (11.4-16.0); Luc # (Auto) 0.37; Luc % (Auto) 4; Lymphocytes # (A) 2.7 k/uL (1.0-4.8); Lymphocytes % (A) 29 %; MCH 32.1 pg (25.0-35.0); MCHC 33.4 g/dL (31.0-37.0); MCV 96.1 fL (80.0-100.0); Mean Platelet Volume 7.3; Monocytes # (A) 0.5 k/uL (0-1.0); Monocytes % (A) 6 %; Neutrophils # (A) 5.5 k/uL (1.3-7.7); Neutrophils % (A) 59 %; RBC 4.34 m/uL (3.80-5.40); RDW 13.9 % (11.5-15.5); WBC 9.2 k/uL (3.8-10.6); WBC (Perox) 9.43
[2017-02-12] MEDS: INSULIN LISPRO (humaLOG) 300 UNIT/3 ML VIAL SQ SCH ×2 (08:12→12:27)
[2017-02-12] MEDS: ASPIRIN 325 MG TAB PO SCH (08:14)
[2017-02-12] MEDS: PANTOPRAZOLE 40 MG TABLET PO SCH (08:14)
[2017-02-12] MEDS: predniSONE 20 MG TAB PO SCH (08:14)
[2017-02-12] MEDS: guaiFENesin 600 MG TABLET.ER PO SCH (08:14)
[2017-02-12] MEDS: ALPRAZolam 0.25 MG TAB PO PRN (08:20)
[2017-02-12] MEDS: SENNOSIDES-DOCUSATE SODIUM 1 EACH TAB PO SCH (08:41)
--- NOTE | 2017-02-12 09:06 | US ---
EXAMINATION TYPE: US liver DATE OF EXAM: 02/12/2017 COMPARISON: CT 2017 CLINICAL HISTORY: elevated liver enzymes. EXAM MEASUREMENTS: Liver Length: 15.0 cm Gallbladder Wall: Surgically absent cm CBD: 0.8 cm Right Kidney: 11.1 x 4.9 x 3.8 cm Pancreas: wnl, tail obscured by bowel gas. Duct = 0.2 cm Liver: wnl Gallbladder: Surgically absent Evidence for sonographic Gustafson's sign: No CBD: wnl Right Kidney: wnl IMPRESSION: Normal postcholecystectomy right upper quadrant ultrasound.
[2017-02-12] MEDS ORDERED: LACTULOSE 20 GM/30 ML CUP PO ONE (11:30)
[2017-02-12 11:35] VITALS: BMI 37.5
[2017-02-12] MEDS ORDERED: POLYETHYLENE GLYCOL 3350 17 GM POWD.PACK PO SCH (11:45)
[2017-02-12] MEDS: CHOLECALCIFEROL 1,000 UNIT TAB PO SCH (11:50)
--- NOTE | 2017-02-12 12:09 | P.PN ---
Subjective Principal diagnosis: copd with exacerbation chf ascites o/e vss chest diminished breATH SOUNDS CVS RRR EDEMA= MEDS AND LABS REVIEWED .cONTINUE CURRENT MEDS WHICH WERE REVIEWED less dyspnea sputum is growing pseudomonas Objective - Vital Signs Vital signs: Vital Signs Temp 97 F L 02/12/17 07:00 Pulse 88 02/12/17 11:18 Resp 18 02/12/17 07:00 BP 111/60 02/12/17 07:00 Pulse Ox 98 02/12/17 07:00 Intake & Output 02/11/17 02/12/17 02/12/17 18:59 06:59 18:59 Intake Total 550 Balance 550 Weight 90.1 kg Intake: Oral 550 Other: Voiding Method Toilet # Voids 1 2 - Respiratory Respiratory: bilateral: diminished, prolonged expiration, negative: wheezing - Cardiovascular Heart sounds: normal: S1, S2 - Labs CBC & Chem 7: 02/12/17 07:15 02/12/17 07:15 Labs: Abnormal Lab Results - Last 24 Hours (Table) 02/11/17 02/11/17 02/11/17 Range/Units 07:44 17:01 20:38 Sodium (137-145) mmol/L Chloride (98-107) mmol/L BUN (7-17) mg/dL Creatinine (0.52-1.04) mg/dL POC Glucose (mg/dL) 159 H 104 H (75-99) mg/dL AST (14-36) U/L ALT (9-52) U/L Hep Bs Antibody POSITIVE H (Negative) 02/12/17 Range/Units 07:15 Sodium 134 L (137-145) mmol/L Chloride 95 L (98-107) mmol/L BUN 20 H (7-17) mg/dL Creatinine 0.42 L (0.52-1.04) mg/dL POC Glucose (mg/dL) (75-99) mg/dL AST 72 H (14-36) U/L ALT 260 H (9-52) U/L Hep Bs Antibody (Negative) Assessment and Plan (1) Atypical chest pain Status: Acute (2) COPD with exacerbation Status: Acute (3) Respiratory distress Status: Acute (4) Acute exacerbation of chronic obstructive airways disease Status: Acute Plan: consult id and decide on treatment for pseudomonas which may be colonisation versus pathogen continue current meds which were reviewed Increase activity level
--- NOTE | 2017-02-12 12:11 | P.PN ---
Subjective Patient presented with chest pain shortness of breath. She was found have evidence of a COPD exacerbation and bronchitis. Patient's shortness of breath and wheezing are showing improvement. She's no other having chest pain. Denies any nausea or vomiting. Reports having regular bowel movements. Denies any difficulty with urinating. Patient reports having some abdominal distention and more pain in her abdomen especially the right lower quadrant. A computed tomography scan of the abdomen and pelvis completed shows no bowel obstruction. Thickening of some small bowel loops. Correlate for enteritis. Overall generalized bowel distention without obstruction suspected also noted a left adnexal cyst patient reports that she has ovarian cysts and fibroids of the uterus that have been causing a lot of her abdominal pain. A TRANSPLANTER consult was placed 02/09/2017 patient's shortness of breath and cough are showing improvement. Patient was crying when I entered the room to reexamine her with Dr. Lock. She states that the steroids do this to her. She's also being treated for constipation. She was given mag citrate with no bowel movement yet. Still complaining of abdominal discomfort. No nausea or vomiting. Denies any chest pain or shortness of breath. Denies any burning with urination 02/12/2017 patient still complaining of abdominal pain. Reports being about 2 days since her last bowel movement. Denies any nausea or vomiting. Still having lower abdominal pains. Denies any chest pain. Reports improvement in her shortness of breath and cough. Denies any difficulty urinating. Objective - Vital Signs Vital signs: Vital Signs Temp 97 F L 02/12/17 07:00 Pulse 88 02/12/17 11:18 Resp 18 02/12/17 07:00 BP 111/60 02/12/17 07:00 Pulse Ox 98 02/12/17 07:00 Intake & Output 02/11/17 02/12/17 02/12/17 18:59 06:59 18:59 Intake Total 550 Balance 550 Weight 90.1 kg Intake: Oral 550 Other: Voiding Method Toilet # Voids 1 2 - Exam Head normocephalic Neck supple Lungs clear to auscultation bilaterally no wheezing or crackles Heart regular rate and rhythm S1-S2, no rub or gallop Abdomen is soft positive bowel sounds lower abdominal tenderness Extremities no edema Neuro alert and orientated to 3 - Labs CBC & Chem 7: 02/12/17 07:15 02/12/17 07:15 Labs: Abnormal Lab Results - Last 24 Hours (Table) 02/11/17 02/11/17 02/11/17 Range/Units 07:44 17:01 20:38 Sodium (137-145) mmol/L Chloride (98-107) mmol/L BUN (7-17) mg/dL Creatinine (0.52-1.04) mg/dL POC Glucose (mg/dL) 159 H 104 H (75-99) mg/dL AST (14-36) U/L ALT (9-52) U/L Hep Bs Antibody POSITIVE H (Negative) 02/12/17 Range/Units 07:15 Sodium 134 L (137-145) mmol/L Chloride 95 L (98-107) mmol/L BUN 20 H (7-17) mg/dL Creatinine 0.42 L (0.52-1.04) mg/dL POC Glucose (mg/dL) (75-99) mg/dL AST 72 H (14-36) U/L ALT 260 H (9-52) U/L Hep Bs Antibody (Negative) Assessment and Plan Plan: #1 episode of chest pain: [place] ruled out. Troponins negative 3 sets. EKG on presentation reveals normal sinus rhythm without any acute ischemic changes. Cardiology following. Currently off of the IV heparin. Echo shows an EF of 50- 55% with moderate mitral regurgitation and moderate mitral valve prolapse. Cardiology recommending stress test outpatient when her lungs clear. Cardiology has signed off #2 acute COPD exacerbation continue IV steroids and bronchodilators. Patient has shown improvement. He the oral prednisone and bronchodilators #3 acute purulent bronchitis with sputum growing Pseudomonas. Patient is been started on Zosyn. Pulmonary is consulted infectious disease #4 underlying history of hypertension well-controlled continue was current blood pressure medications patient is maintained on Cardizem #5 paroxysmal atrial fibrillation, patient not on anticoagulation because of history of bleeding #6 elevated LFTs. GI service consulted. Liver ultrasound normal. Hepatitis C was reactive and hepatitis B surface antibody was positive. Patient has a known history of hepatitis C as well as receiving the hepatitis B antigen. Liver enzymes have #7 abdominal discomfort with known history of ovarian cyst area patient evaluated by TRANSPLANTER service. They felt of the ovarian cyst was not contributing to her pain. He'll follow-up with her outpatient #8 abdominal pain likely secondary to constipation. She is still having issues with constipation. We'll give 1 dose of lactulose. Continue stool softener. Also will add MiraLAX daily #9 generalized anxiety disorder will add Xanax 0.25 mg twice a day as needed Encourage patient to ambulate the hallways DVT prophylaxis SCDs and ambulation I performed an examination of the patient and discussed their management with the physician Hemodialysis Lab Technician. I have reviewed the Physician Hemodialysis Lab Technician's notes and agree with the documented findings and plan of care
[2017-02-12 12:12] LABS: Glucose,Whole Blood 109 mg/dL (75-99)
--- NOTE | 2017-02-12 14:03 | P.DS ---
Providers Date of admission: 02/06/17 14:05 Expected date of discharge: 02/12/17 Attending physician: Ning Lock Consults: 02/06/17 14:05 Consult Physician Routine Consulting Provider: Jey Webster Consult Reason/Comments: COPD exacerbation, atypical chest pain Do you want consulting provider notified?: Yes 02/06/17 16:05 Consult Physician Routine Consulting Provider: Carolina Lopez Consult Reason/Comments: chest pain, paroxysmal afib Do you want consulting provider notified?: Yes 02/08/17 10:14 Consult Physician Routine Consulting Provider: Valerie Elizabeth Consult Reason/Comments: fibroid tumors and ovarian cysts Do you want consulting provider notified?: Yes 02/08/17 16:21 Consult Physician Routine Consulting Provider: Tomasz Alfaro Consult Reason/Comments: abdominal pain, enteritis on CT scan Do you want consulting provider notified?: Yes 02/11/17 13:42 Consult Physician Routine Consulting Provider: Sukhwinder Macedo Consult Reason/Comments: elevated liver enzymes Do you want consulting provider notified?: Yes 02/11/17 19:04 Consult Physician Routine Consulting Provider: Grisel Valdez Consult Reason/Comments: pseudomonas Do you want consulting provider notified?: Already Contacted Primary care physician: [facility] Course: Discharge diagnosis #1 episode of chest pain: [place] ruled out. Troponins negative 3 sets. EKG on presentation reveals normal sinus rhythm without any acute ischemic changes. Cardiology following. Currently off of the IV heparin. Echo shows an EF of 50- 55% with moderate mitral regurgitation and moderate mitral valve prolapse. Cardiology recommending stress test outpatient when her lungs clear. Cardiology has signed off #2 acute COPD exacerbation continue IV steroids and bronchodilators. Patient has shown improvement. He the oral prednisone and bronchodilators #3 acute purulent bronchitis with sputum growing Pseudomonas. Patient is been started on Zosyn. Pulmonary is consulted infectious disease #4 underlying history of hypertension well-controlled continue was current blood pressure medications patient is maintained on Cardizem #5 paroxysmal atrial fibrillation, patient not on anticoagulation because of history of bleeding #6 elevated LFTs. GI service consulted. Liver ultrasound normal. Hepatitis C was reactive and hepatitis B surface antibody was positive. Patient has a known history of hepatitis C as well as receiving the hepatitis B antigen. Liver enzymes have #7 abdominal discomfort with known history of ovarian cyst area patient evaluated by [employer] service. They felt of the ovarian cyst was not contributing to her pain. He'll follow-up with her outpatient #8 abdominal pain likely secondary to constipation. She is still having issues with constipation. We'll give 1 dose of lactulose. Continue stool softener. Also will add MiraLAX daily. Patient was able to have a bowel movement before discharge #9 generalized anxiety disorder will add Xanax 0.25 mg twice a day as needed Hospital course Patient is a 61-year-old female who presented to [facility] emergency room with a chief complaint of chest pain and shortness of breath, patient has a known history of chronic obstructive pulmonary disease, she also stated that she had a previous history of congestive heart failure, she has been complaining of worsening shortness of breath and wheezing and on the day of admission she was having episodes of chest pain and chest pressure, she decided to come to emergency room she was evaluated in the emergency room and started on IV heparin first set of cardiac enzymes were negative D dimer was negative was admitted to telemetry floor for further evaluation and treatment cardiology consultation was requested patient is also known to Dr. Chris Webster who manages her COPD a consultation was requested in the emergency room. Patient's cardiac workup was negative. Troponins were negative 3 sets and EKG showed no acute changes. Echo which showed no significant valvular change with an EF of 50-55%. Part cardiology recommended a stress test outpatient when her lung infection had cleared. She was treated for an acute COPD exacerbation and bronchitis. Chest x-ray showed no evidence of pneumonia. She started on IV steroids and bronchodilators. Pulmonary service did add Pulmicort and Singulair to her regimen of medications. Her nebulizer treatments were changed to both the albuterol Atrovent nebulizer treatment. At home she was only doing the Atrovent. Patient's symptoms did improve. She was able to be placed on oral prednisone. And she completed treatment with the prednisone in the hospital. Sputum culture results eventually came back with Pseudomonas. Antibiotics were changed to Zosyn and infectious disease was consulted. Infectious disease is recommending Cipro 500 mg twice a day for 5 more days. Also during this admission patient is complaining of abdominal pain and constipation. Computed tomography scan of the abdomen showed no bowel obstruction. There is thickening of some small bowel loops. Correlate for enteritis. Overall generalized bowel distention without obstruction suspected. Results of a left adnexal cyst. Patient was seen by both surgical and [employer] service. GI then felt that the left ovarian cyst was not contributing to her abdominal pain. She will follow-up with [employer] outpatient for further workup. Surgical service felt that her symptoms were more constipation related and she was given mag citrate and lactulose to help with bowel movements. Again today patient was complaining of constipation received lactulose and MiraLAX. She was able to have a bowel movement. We will continue her on a stool softener twice a day and MiraLAX daily outpatient to help with her constipation issues. Patient is eager for discharge home. She is requesting a prescription for Xanax and [place] at time of discharge. Patient did have elevated LFTs that slightly increased during this admission and again are now trending down. Liver ultrasound was normal. She does have a known history of hepatitis C in which the hepatitis IgG antibody was reactive. She also had a hepatitis B surface antibody that was positive. Patient will follow-up with GI service outpatient. They were initially consulted. However again patient is eager for discharge and she is medically stable for discharge. Patient's abdominal discomfort did improve after bowel movements. Please refer to chart for any further details. Patient Condition at Discharge: Stable Plan - Discharge Summary New Discharge Prescriptions: New ALPRAZolam [Xanax] 0.25 mg PO BID PRN #20 tab PRN Reason: Anxiety Budesonide [Pulmicort] 0.5 mg INHALATION BID #1 box Ciprofloxacin HCl [Cipro] 500 mg PO Q12HR #10 tablet guaiFENesin [Mucinex] 1,200 mg PO Q12HR #10 tab Ipratropium-Albuterol Nebulize [Duoneb 0.5 mg-3 mg/3 ml Soln] 3 ml INHALATION QID #1 box Montelukast [Singulair] 10 mg PO HS #30 tab Polyethylene Glycol 3350 [Miralax] 17 gm PO DAILY #30 pack Sennosides-Docusate Sodium [Senokot-S] 1 each PO BID #60 tab Continue Pramipexole [Mirapex] 0.5 mg PO HS Albuterol Inhaler [Ventolin Hfa Inhaler] 1 - 2 puff INHALATION RT-Q6H PRN PRN Reason: Shortness Of Breath Tiotropium [place] [Spiriva] 18 mcg INHALATION RT-DAILY Fluticasone Nasal [place] [Flonase Nasal [place]] 1 spray EA NOSTRIL DAILY PRN PRN Reason: Allergy Symptoms Diltiazem Cd [Cardizem CD] 240 mg PO HS Cholecalciferol [Vitamin D3] 2,000 unit PO DAILY Omeprazole 20 mg PO BID Beclomethasone Dipropionate [Qvar 80 mcg] 1 puff INHALATION RT-BID Melatonin 1 mg PO HS Aspirin 325 mg PO ONCE PRN PRN Reason: Chest Pain HYDROcodone/APAP 10-325MG [[place] 10-325] 1 tab PO Q6H PRN #30 PRN Reason: Pain Discontinued Albuterol Nebulized [Ventolin Nebulized] 2.5 mg INHALATION RT-QID predniSONE See Taper PO DIRECTED Discharge Medication List Pramipexole [Mirapex] 0.5 mg PO HS 09/28/15 [History] Albuterol Inhaler [Ventolin Hfa Inhaler] 1 - 2 puff INHALATION RT-Q6H PRN [History] Tiotropium [place] [Spiriva] 18 mcg INHALATION RT-DAILY 10/04/15 [History] Fluticasone Nasal [place] [Flonase Nasal [place]] 1 spray EA NOSTRIL DAILY PRN 10/17 [History] Cholecalciferol [Vitamin D3] 2,000 unit PO DAILY 02/02/16 [History] Diltiazem Cd [Cardizem CD] 240 mg PO HS 02/02/16 [History] Omeprazole 20 mg PO BID 02/02/16 [History] Beclomethasone Dipropionate [Qvar 80 mcg] 1 puff INHALATION RT-BID 11/14/16 [ History] Aspirin 325 mg PO ONCE PRN 02/06/17 [History] Melatonin 1 mg PO HS 02/06/17 [History] ALPRAZolam [Xanax] 0.25 mg PO BID PRN #20 tab 02/12/17 [Rx] Budesonide [Pulmicort] 0.5 mg INHALATION BID #1 box 02/12/17 [Rx] Ciprofloxacin HCl [Cipro] 500 mg PO Q12HR #10 tablet 02/12/17 [Rx] HYDROcodone/APAP 10-325MG [[place] 10-325] 1 tab PO Q6H PRN #30 02/12/17 [Rx] Ipratropium-Albuterol Nebulize [Duoneb 0.5 mg-3 mg/3 ml Soln] 3 ml INHALATION QID #1 box 02/12/17 [Rx] Montelukast [Singulair] 10 mg PO HS #30 tab 02/12/17 [Rx] Polyethylene Glycol 3350 [Miralax] 17 gm PO DAILY #30 pack 02/12/17 [Rx] Sennosides-Docusate Sodium [Senokot-S] 1 each PO BID #60 tab 02/12/17 [Rx] guaiFENesin [Mucinex] 1,200 mg PO Q12HR #10 tab 02/12/17 [Rx] Follow up Appointment(s)/Referral(s): Virginie Calvert MD [Primary Care Provider] - 1 Week Sukhwinder Macedo MD [STAFF PHYSICIAN] - 1 Week Activity/Diet/Wound Care/Special Instructions: Diet: regular, high fiber Activity: as tolerated Discharge Disposition: HOME SELF-CARE
[2017-02-12 14:52] VITALS: PULSE 86
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
== END 2017-02-12 15:11 | disposition home or self-care (01) | DRG 190 ==
LOC: EC 11:21 → 6SEL 14:05 → 4MS4W 02-09 17:48
PROVIDERS: ADMIT Internal Medicine; ATTEND Internal Medicine
DX: J44.0 Chronic obstructive pulmonary disease with (acute) lower respiratory infection (principal); J96.21 Acute and chronic respiratory failure with hypoxia; R18.8 Other ascites; J45.901 Unspecified asthma with (acute) exacerbation; I50.9 Heart failure, unspecified; I11.0 Hypertensive heart disease with heart failure; Z99.81 Dependence on supplemental oxygen; I48.0 Paroxysmal atrial fibrillation; M41.9 Scoliosis, unspecified; K21.9 Gastro-esophageal reflux disease without esophagitis; J44.1 Chronic obstructive pulmonary disease with (acute) exacerbation; J20.9 Acute bronchitis, unspecified; B19.20 Unspecified viral hepatitis C without hepatic coma; B96.5 Pseudomonas (aeruginosa) (mallei) (pseudomallei) as the cause of diseases classified elsewhere; D25.9 Leiomyoma of uterus, unspecified; F12.90 Cannabis use, unspecified, uncomplicated; F41.1 Generalized anxiety disorder; F43.10 Post-traumatic stress disorder, unspecified; G89.29 Other chronic pain; I25.10 Atherosclerotic heart disease of native coronary artery without angina pectoris; I25.2 Old myocardial infarction; I34.0 Nonrheumatic mitral (valve) insufficiency; I34.1 Nonrheumatic mitral (valve) prolapse; I49.3 Ventricular premature depolarization; K52.9 Noninfective gastroenteritis and colitis, unspecified; K58.9 Irritable bowel syndrome, unspecified; K59.01 Slow transit constipation; N83.209 Unspecified ovarian cyst, unspecified side; Z79.52 Long term (current) use of systemic steroids; Z79.82 Long term (current) use of aspirin; Z79.899 Other long term (current) drug therapy; Z82.49 Family history of ischemic heart disease and other diseases of the circulatory system; Z85.41 Personal history of malignant neoplasm of cervix uteri
CPT/HCPCS: 36415; 71020; 74177; 76705; 80053; 80061; 82550; 82553; 83735; 83880; 84443; 84484; 85025; 85379; 85610; 85730; 86706; 86803; 87070; 87077; 87186; 87205; 87340; 93005; 93306; 94640; 94760; 96374; 96376; 99291

== ENCOUNTER → 2017-03-29 | Outpatient (CLI) | payer OTHER ==
--- NOTE | 2017-03-29 12:47 | XR ---
EXAMINATION TYPE: XR chest 2V DATE OF EXAM: 03/29/2017 COMPARISON: NONE HISTORY: Shortness of breath and cough with clinical symptoms of pneumonia. TECHNIQUE: Frontal and lateral views of the chest are obtained. FINDINGS: There is no focal air space opacity, pleural effusion, or pneumothorax seen. There is pul monary hyperinflation and flattening of the diaphragms with tapering of the pulmonary vasculature and biapical lucency. The cardiac silhouette size is within normal limits. The osseous structures are intact. IMPRESSION: 1. No acute cardiopulmonary process. 2. Radiographic sequela of COPD.
== END ==
LOC: RADXRMAIN 12:08
PROVIDERS: ATTEND Internal Medicine Infectious Disease
DX: J44.9 Chronic obstructive pulmonary disease, unspecified (principal); J18.9 Pneumonia, unspecified organism
CPT/HCPCS: 71020; 87070; 87205

== ENCOUNTER → 2017-07-31 | Outpatient (CLI) | payer OTHER ==
--- NOTE | 2017-07-31 15:27 | CT ---
EXAMINATION TYPE: CT brain wo con DATE OF EXAM: 07/31/2017 COMPARISON: 11/14/2016 INDICATION: Double vision DLP: 1094 mGycm, Automated exposure control for dose reduction was used. CONTRAST: None CT of the brain is performed utilizing 3 mm thick sections through the posterior fossa and 3 mm thick sections through the remaining calvarium. Study is performed within 24 hours of arrival to the hosp [facility]. No abnormal hyperdensity is present to suggest an acute intracranial hemorrhage. No mass lesion is evident. No acute infarcts are evident. Ventricles and sulci are appropriate for the patient age. Paranasal sinuses and mastoid air cells within the [id number] are clear. The globes are symmetrical. Intraconal and extraconal fat is visualized appears normal. Optic nerves and extraocular muscles appear normal on CT brain images. Optic chiasm region appears normal IMPRESSIONS: 1. No acute intracranial process.
== END | disposition home or self-care (01) ==
LOC: RADCTMAIN 13:57
PROVIDERS: ATTEND Internal Medicine
DX: H53.2 Diplopia (principal)
CPT/HCPCS: 70450

== ENCOUNTER 2017-11-30 14:41 | Emergency (ER) | payer OTHER ==
[2017-11-30 14:45] VITALS: RESP 18
[2017-11-30 15:20] LABS: Appearance,Urine Clear (Clear); Bilirubin,Urine Negative (Negative); Blood,Urine Negative (Negative); Color,Urine Light Yellow; Glucose,Urine (UA) Negative (Negative); Ketones,Urine Negative (Negative); Leukocyte Esterase,Urine Negative (Negative); Nitrite,Urine Negative (Negative); Protein,Urine Negative (Negative); Specific Gravity,Urine 1.006 (1.001-1.035); Urobilinogen,Urine <2.0 mg/dL (<2.0)
[2017-11-30 15:23] LABS: Basophils % (A) 1 %; Eosinophils # (A) 0.1 k/uL (0-0.7); Eosinophils % (A) 2 %; HCT 42.1 % (34.0-46.0); Lymphocytes # (A) 1.9 k/uL (1.0-4.8); Lymphocytes % (A) 32 %; MCHC 33.3 g/dL (31.0-37.0); Mean Platelet Volume 7.1; Monocytes # (A) 0.4 k/uL (0-1.0); Monocytes % (A) 7 %; Neutrophils # (A) 3.3 k/uL (1.3-7.7); Neutrophils % (A) 55 %; Platelet Count 234 k/uL (150-450); RBC 4.68 m/uL (3.80-5.40); RDW 13.2 % (11.5-15.5); WBC 6.1 k/uL (3.8-10.6)
[2017-11-30 15:29] LABS: ALT 31 U/L (9-52); AST 18 U/L (14-36); Albumin 4.7 g/dL (3.5-5.0); Alkaline Phosphatase 115 U/L (38-126); Amylase 70 U/L (30-110); Anion Gap 15 mmol/L; Blood Urea Nitrogen 13 mg/dL (7-17); Calcium 9.7 mg/dL (8.4-10.2); Carbon Dioxide 29 mmol/L (22-30); Chloride 97 mmol/L (98-107); Glucose 79 mg/dL (74-99); Lipase 49 U/L (23-300); Potassium 4.1 mmol/L (3.5-5.1); Sodium 141 mmol/L (137-145); Total Bilirubin 0.3 mg/dL (0.2-1.3); Total Protein 7.6 g/dL (6.3-8.2)
[2017-11-30] MEDS ORDERED: RX INFO: IV CONTRAST WAS GIVEN 1 EACH MISC MISCELLANE PRN (15:31)
--- NOTE | 2017-11-30 16:25 | CT ---
EXAMINATION TYPE: CT abdomen pelvis w con DATE OF EXAM: 11/30/2017 COMPARISON: 02/07/2017 HISTORY: Generalized abdominal pain with nausea x [address] DLP: 364.9 mGycm CONTRAST: CT scan of the abdomen and pelvis is performed without Oral Contrast and with IV Contrast, patient in jected with 100 mL of Isovue M300. FINDINGS: LUNG BASES-: No visible nodule. No infiltrate. Mild lower lobe bronchiectasis. LIVER/GB: The gallbladder is surgically absent. No space occupying hepatic lesion. Biliary tree is of normal caliber. PANCREAS: No inflammation. No distinct mass. SPLEEN: No splenic enlargement. No lesion seen. ADRENALS: No nodule. No thickening. KIDNEYS/BLADDER: No hydronephrosis. No nephrolithiasis. No distinct solid renal mass. Tiny renal cortical cysts. Urinary bladder grossly unremarkable. BOWEL: Normal appendix. Normal bowel caliber. No inflammation. Moderate fecal stasis. GENITAL ORGANS: Left ovarian cyst measures 3 cm and is unchanged from prior study. Uterus and right ovary are unremarkable. LYMPH NODES: No greater than 1cm abdominal or pelvic lymph nodes are appreciated. AORTA: No significant abnormality. OSSEOUS STRUCTURES: No significant abnormality is seen. OTHER: Fat-containing umbilical hernia measures 1.7 cm.. IMPRESSION: 1. Left ovarian cyst measuring 3 cm unchanged prior study. 2. Moderate fecal stasis.
[2017-11-30 16:48] VITALS: BP 148/84; PULSE 63; TEMP 97.6
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
[2017-11-30] MEDS ORDERED: MAGNESIUM CITRATE 296 ML BOTTLE PO ONE (16:50)
== END 2017-11-30 17:10 | disposition home or self-care (01) ==
LOC: EC 14:41
DX: K59.00 Constipation, unspecified (principal); R10.9 Unspecified abdominal pain; N83.202 Unspecified ovarian cyst, left side; I48.91 Unspecified atrial fibrillation; J44.9 Chronic obstructive pulmonary disease, unspecified; M54.9 Dorsalgia, unspecified; M54.2 Cervicalgia; K21.9 Gastro-esophageal reflux disease without esophagitis; G89.29 Other chronic pain; Z87.891 Personal history of nicotine dependence; Z90.49 Acquired absence of other specified parts of digestive tract; Z86.010 Personal history of colon polyps; Z79.51 Long term (current) use of inhaled steroids; Z79.899 Other long term (current) drug therapy; Z88.8 Allergy status to other drugs, medicaments and biological substances
CPT/HCPCS: 36415; 80053; 82150; 83605; 83690; 85025; 81003; 74177; 99284; Q9967

== ENCOUNTER → 2018-03-18 | Outpatient (CLI) | payer OTHER ==
--- NOTE | 2018-03-18 22:38 | CT ---
EXAMINATION TYPE: CT angio chest DATE OF EXAM: 03/18/2018 COMPARISON: 06/09/2016 HISTORY: 62-year-old female Increasing SOB TECHNIQUE: Contiguous axial scanning of the chest performed with IV Contrast, patient injected with 7 0 mL of Isovue 370. Coronal/sagittal MIP reconstructions performed. CT DLP: 183 mGycm Automated exposure control for dose reduction was used. FINDINGS: Heart is normal size without pericardial effusion. Aorta is normal-caliber with mild atherosclerotic arch calcifications and bovine configuration to the aortic arch. No thoracic lymphadenopathy. Satisfactory opacification the pulmonary artery system. No evidence for pulmonary embolus. There is moderate to advanced centrilobular emphysema especially in the upper limits with moderate di ffuse bronchial wall thickening. 4 mm right upper lobe pulmonary nodule axial image 41. 4 mm left pulmonary nodule is unchanged compatible with a benign etiology. No consolidation or pleura l effusion. Visualized upper abdomen shows moderate atherosclerotic calcifications and ectasia of the lower desce nding thoracic aorta at 2.6 cm. Bones: S-shaped scoliosis mild superior endplate compression deformities of T6 and to a lesser degree , T7 are new from 06/09/2016 but still suspected chronic. IMPRESSION: 1 NO EVIDENCE FOR PULMONARY EMBOLUS. 2. COPD WITH MODERATE TO ADVANCED EMPHYSEMA AND EITHER SUPERIMPOSED ACUTE BRONCHITIS OR A PROMINENT C OMPONENT OF CHRONIC BRONCHITIS, INCREASED FROM 2016. 3. A 4 MM RIGHT UPPER LOBE PULMONARY NODULE. SIX-MONTH FOLLOW-UP CT RECOMMENDED TO REASSESS. 4. MILD SUPERIOR ENDPLATE COMPRESSION DEFORMITIES OF T6 AND TO A LESSER DEGREE, T7 ARE NEW FROM 2016 BUT STILL SUSPECTED CHRONIC. CLINICALLY CORRELATE.
== END | disposition home or self-care (01) ==
LOC: RADCTMAIN 15:41
PROVIDERS: ATTEND Internal Medicine
DX: J43.9 Emphysema, unspecified (principal); R91.1 Solitary pulmonary nodule
CPT/HCPCS: 71275; Q9967

== ENCOUNTER → 2018-03-18 | Outpatient (CLI) | payer OTHER ==
[2018-03-18 15:52] LABS: Basophils % (A) 0 %; Eosinophils % (A) 0 %; HCT 42.4 % (34.0-46.0); HGB 13.3 gm/dL (11.4-16.0); Lymphocytes # (A) 0.7 k/uL (1.0-4.8); Lymphocytes % (A) 8 %; MCH 29.5 pg (25.0-35.0); MCHC 31.4 g/dL (31.0-37.0); MCV 93.9 fL (80.0-100.0); Mean Platelet Volume 7.3; Monocytes # (A) 0.2 k/uL (0-1.0); Monocytes % (A) 3 %; Neutrophils # (A) 6.9 k/uL (1.3-7.7); Neutrophils % (A) 88 %; Platelet Count 250 k/uL (150-450); RBC 4.51 m/uL (3.80-5.40); RDW 13.4 % (11.5-15.5); WBC 7.8 k/uL (3.8-10.6)
[2018-03-20 10:54] LABS: Alt. alternata IgE Class CLASS 0; Alternaria alternata IgE <0.35 kU/L (<0.35); Asperg. fumagatus IgE <0.35 kU/L (<0.35); Asperg. fumagatus IgE Class CLASS 0; Bermuda Grass IgE <0.35 kU/L (<0.35); Birch(Com.Silvr) IgE <0.35 kU/L (<0.35); Birch(Com.Silvr) IgE Class CLASS 0; Cat Epith & Dander IgE <0.35 kU/L (<0.35); Cat Epith & Dander IgE Class CLASS 0; Clad herbarum IgE <0.35 kU/L (<0.35); Cockroach IgE <0.35 kU/L (<0.35); Cottonwood IgE <0.35 kU/L (<0.35); Dermato. Pteronyssinus IgE <0.35 kU/L (<0.35); Dermato. farinae IgE <0.35 kU/L (<0.35); Dermato. farinae IgE Class CLASS 0; Dog Dander IgE <0.35 kU/L (<0.35); Elm IgE <0.35 kU/L (<0.35); Maple (Box Elder) IgE <0.35 kU/L (<0.35); Maple (Box Elder) IgE Class CLASS 0; Mountain Cedar IgE <0.35 kU/L (<0.35); Mountain Cedar IgE Class CLASS 0; Mouse Urine IgE Class CLASS 0; Nettle IgE <0.35 kU/L (<0.35); Nettle IgE Class CLASS 0; Oak IgE <0.35 kU/L (<0.35); Penicillium notatum IgE Class CLASS 0; Rough Marshelder IgE <0.35 kU/L (<0.35); Rough Marshelder IgE Class CLASS 0; Timothy Grass IgE <0.35 kU/L (<0.35); White Ash IgE Class CLASS 0
== END | disposition home or self-care (01) ==
LOC: LABWHC1 15:13
PROVIDERS: ATTEND Internal Medicine Pulmonary Disease
DX: J45.909 Unspecified asthma, uncomplicated (principal)
CPT/HCPCS: 36415; 82785; 85025; 86001; 86003; 86606; 86609

== ENCOUNTER → 2018-04-16 | Outpatient (CLI) | payer OTHER ==
--- NOTE | 2018-04-17 08:55 | XR ---
EXAMINATION TYPE: XR lumbosacral spine min 4V DATE OF EXAM: 04/16/2018 COMPARISON: 02/21/2016 HISTORY: Recent fall TECHNIQUE: Five-view lumbar spine FINDINGS: There is a scoliosis present with convexity to left centered at L1. There 5 lumbar-type vertebral bodies. The pedicles as visualized appear intact. There is some limitat ion of right pedicles. Mild facet degenerative changes are noted. No spondylolytic defects are eviden t. Disc space narrowing is present L5-S1 and posteriorly L3-L4 and L2-L3. Vertebral body heights appe ar preserved. IMPRESSION: 1. Degenerative disc changes L3-4 posteriorly L5-S1. 2. Scoliosis. 3. No acute abnormality evident
== END | disposition home or self-care (01) ==
LOC: RADXRMAIN 16:12
PROVIDERS: ATTEND Internal Medicine
DX: M51.37 Other intervertebral disc degeneration, lumbosacral region (principal); M41.86 Other forms of scoliosis, lumbar region
CPT/HCPCS: 72110

== ENCOUNTER → 2018-05-09 | Outpatient (CLI) | payer OTHER ==
--- NOTE | 2018-05-09 18:19 | BD ---
EXAMINATION TYPE: Axial Bone Density DATE OF EXAM: 05/09/2018 CLINICAL HISTORY: 63-year-old female postmenopausal symptoms Height: 59.5 Weight: 129 FRAX RISK QUESTIONS: Alcohol (3 or more units per day): no Family History (Parent hip fracture): no Glucocorticoids (More than 3mos): yes, inhaler for many years (Ex: prednisone, prednisolone, methylprednisolone, dexamethasone, and hydrocortisone). History of Fracture in Adulthood: yes, knee Secondary Osteoporosis: 1. Type 1 Diabetes: no 2. Hyperthyroidism: no 3. Menopause before 45: no 4. Malnutrition: no 5. Chronic liver disease: no Rheumatoid Arthritis: no Current Tobacco Use: no RISK FACTORS HISTORY OF: Spine Fracture: yes, thoracic When: unsure Family History of Osteoporosis:no Active: somewhat Diet low in dairy products/other sources of calcium: yes, lactose intolerant Postmenopausal woman: yes Take estrogen and/or progesterone medications: no Lost more than 2 inches in height since high school: possibly Frequent falls: fell out of bed recently Poor Health: yes Hyperparathyroidism: no Adrenal Insufficiency: no MEDICATIONS: Prednisone or other steroids: yes, inhaler How Long: many years Thyroid Medications: no Osteoporosis Medications: no Additional Medications: blood pressure meds; Vitamin D Additional History: cervical CA; needs oxygen EXAM MEASUREMENTS: Bone mineral densitometry was performed using the [employer] System. Bone mineral density as measured about the Lumbar spine is: ----- L1-L4(G/cm2): 0.725 T Score Values are as follows: ----- L2: -3.9 ----- L3: -4.4 ----- L4: -3.1 ----- L1-L4: -3.8 Bone mineral density BASELINE Bone mineral density about the R hip (g/cm2): 0.541 Bone mineral density about the L hip (g/cm2): 0.606 T Score values are as follows: -----R Neck: -3.6 -----L Neck: -3.1 -----R Total: -4.1 -----L Total: -3.6 Bone mineral density BASELINE IMPRESSION: Osteoporosis (T Score less than -2.5). There is increased fracture risk and therapy is usually indicated based on age. Re-Screen 1-2 years. NOTE: T-SCORE=SD OF THE YOUNG ADULT MEAN.
== END ==
LOC: RADBDWWP 10:00
PROVIDERS: ATTEND Internal Medicine
DX: M85.80 Other specified disorders of bone density and structure, unspecified site (principal)
CPT/HCPCS: 77080

== ENCOUNTER 2018-05-31 15:39 | Emergency (ER) | payer OTHER ==
[2018-05-31 17:05] LABS: Basophils % (A) 0 %; Eosinophils # (A) 0.1 k/uL (0-0.7); Eosinophils % (A) 1 %; HCT 44.4 % (34.0-46.0); HGB 14.1 gm/dL (11.4-16.0); Lymphocytes # (A) 2.5 k/uL (1.0-4.8); Lymphocytes % (A) 26 %; MCH 29.5 pg (25.0-35.0); MCHC 31.8 g/dL (31.0-37.0); MCV 92.9 fL (80.0-100.0); Mean Platelet Volume 7.3; Monocytes # (A) 0.5 k/uL (0-1.0); Monocytes % (A) 5 %; Neutrophils # (A) 6.3 k/uL (1.3-7.7); Neutrophils % (A) 65 %; Platelet Count 256 k/uL (150-450); RBC 4.78 m/uL (3.80-5.40); WBC 9.7 k/uL (3.8-10.6)
[2018-05-31 17:10] LABS: Appearance,Urine Clear (Clear); Bacteria,Urine Rare /hpf; Bilirubin,Urine 1+ (Negative); Blood,Urine Negative (Negative); Color,Urine Yellow; Glucose,Urine (UA) Negative (Negative); Hyaline Casts,Urine 7 /lpf (0-2); Ketones,Urine 4+ (Negative); Leukocyte Esterase,Urine Negative (Negative); Mucus,Urine Few /hpf; Nitrite,Urine Negative (Negative); Protein,Urine 1+ (Negative); RBC,Urine <1 /hpf (0-5); Specific Gravity,Urine 1.028 (1.001-1.035); Squamous Epithelial Cell,Urine <1 /hpf (0-4); WBC,Urine 6 /hpf (0-5)
[2018-05-31] MEDS ORDERED: MORPHINE SULFATE 4 MG/ML SYRINGE IV STA (17:19)
[2018-05-31] MEDS ORDERED: ONDANSETRON 4 MG/2 ML VIAL IVP STA (17:21)
[2018-05-31] MEDS ORDERED: SODIUM CHLORIDE 0.9% 1,000 ML IV STA (17:21)
[2018-05-31 17:32] VITALS: RESP 16
[2018-05-31 17:34] LABS: ALT 25 U/L (9-52); AST 18 U/L (14-36); Alkaline Phosphatase 67 U/L (38-126); Amylase 38 U/L (30-110); Anion Gap 13 mmol/L; Blood Urea Nitrogen 11 mg/dL (7-17); Calcium 9.6 mg/dL (8.4-10.2); Carbon Dioxide 28 mmol/L (22-30); Chloride 96 mmol/L (98-107); Glucose 60 mg/dL (74-99); Lipase 25 U/L (23-300); Potassium 4.4 mmol/L (3.5-5.1); Sodium 137 mmol/L (137-145); Total Bilirubin 0.6 mg/dL (0.2-1.3); Total Protein 7.1 g/dL (6.3-8.2)
--- NOTE | 2018-05-31 17:57 | XR ---
EXAMINATION TYPE: XR KUB DATE OF EXAM: 05/31/2018 COMPARISON: 07/15/2016 HISTORY: Abdominal pain TECHNIQUE: 2 views upright FINDINGS: There is thoracolumbar levoscoliosis. There is no sign of intestinal obstruction or pneumop eritoneum. Fecal pattern is normal. Lung bases are clear. There are no pathologic calcifications over the kidneys. There is vascular calcification. IMPRESSION: Nonacute abdomen. No change.
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
--- NOTE | 2018-05-31 18:58 | CT ---
EXAMINATION TYPE: CT abdomen pelvis w con DATE OF EXAM: 05/31/2018 COMPARISON: 11/30/2017 HISTORY: Abdominal pain and vomiting CT DLP: 651.9 mGycm Automated exposure control for dose reduction was used. TECHNIQUE: Helical acquisition of images was performed from the lung bases through the pelvis. CONTRAST: Performed without Oral Contrast and with IV Contrast, patient injected with 100 mL of Isovue 300. FINDINGS: There is minimal linear density in the anterior right middle lobe. There is no pleural effusion. Hear t size is normal. There is mild ectasia of the biliary tree. Common bile duct measures 12 mm. Gallbladder appears absen t. Spleen appears normal. There is no pancreatic mass. Abdominal aorta is atheromatous. There is no adrenal mass. Kidneys show satisfactory contrast opacification. There is no hydronephrosi s. Abdominal aorta is atheromatous. There is no retroperitoneal adenopathy. There is a 3.3 x 2.5 cm l eft ovarian cyst. Uterus is anteverted. There is thoracolumbar levoscoliosis. There are small amount of free fluid in the pelvis. Appendix is not seen. There is no sign of appendicitis. There is air-charles led appendix appears to extend into a small right inguinal hernia. There is wall thickening involving the proximal duodenum. There is no evidence of free air. I see no sign of a bowel obstruction. There is no inguinal adenopathy. I see no bony destructive process. Ther e is degenerative disc space narrowing at L5-S1. There is small ventral hernia that contains fat slig htly below the umbilicus, unchanged. IMPRESSION: THERE IS LEFT OVARIAN CYST UNCHANGED. THERE IS NEW FREE FLUID IN THE PELVIS. THERE IS NEW WALL THICKE LUCRECIA OF THE PROXIMAL DUODENUM THAT COULD RELATE TO DUODENITIS. THERE IS A MILD DILATED BILIARY TREE T HAT IS NOT SIGNIFICANTLY DIFFERENT THAN OLD EXAM.
[2018-05-31] MEDS ORDERED: PANTOPRAZOLE 40 MG/10 ML VIAL IVP STA (19:22)
[2018-05-31 20:10] VITALS: BP 132/74; PULSE 68; TEMP 98
== END 2018-05-31 18:10 | disposition home or self-care (01) ==
LOC: EC 15:39
DX: K29.80 Duodenitis without bleeding (principal); N83.202 Unspecified ovarian cyst, left side; I48.0 Paroxysmal atrial fibrillation; I11.0 Hypertensive heart disease with heart failure; I50.9 Heart failure, unspecified; I25.2 Old myocardial infarction; K21.9 Gastro-esophageal reflux disease without esophagitis; Z79.899 Other long term (current) drug therapy; Z88.8 Allergy status to other drugs, medicaments and biological substances; Z87.891 Personal history of nicotine dependence; Z85.41 Personal history of malignant neoplasm of cervix uteri; Z90.49 Acquired absence of other specified parts of digestive tract
CPT/HCPCS: 36415; 80053; 82150; 83605; 83690; 85025; 81001; 74018; 74177; 99284; 96374; 96375 ×2; 96361; J2270; J2405; C9113; Q9967

== ENCOUNTER 2018-06-14 15:05 | Inpatient (IN) | payer OTHER ==
[2018-06-14] MEDS ORDERED: SODIUM CHLORIDE 0.9% 1,000 ML IV STA (15:19)
[2018-06-14] MEDS ORDERED: HYDROmorphone 1 MG/ML 1 ML SYRINGE IVP STA (15:19)
[2018-06-14] MEDS ORDERED: ONDANSETRON 4 MG/2 ML VIAL IVP STA (15:19)
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
[2018-06-14 15:59] LABS: Basophils % (A) 0 %; Eosinophils # (A) 0.1 k/uL (0-0.7); Eosinophils % (A) 0 %; HCT 41.1 % (34.0-46.0); HGB 13.4 gm/dL (11.4-16.0); Lymphocytes # (A) 1.6 k/uL (1.0-4.8); Lymphocytes % (A) 10 %; MCH 29.7 pg (25.0-35.0); MCHC 32.6 g/dL (31.0-37.0); MCV 91.1 fL (80.0-100.0); Mean Platelet Volume 7.6; Monocytes # (A) 0.8 k/uL (0-1.0); Monocytes % (A) 5 %; Neutrophils # (A) 13.9 k/uL (1.3-7.7); Neutrophils % (A) 83 %; Platelet Count 264 k/uL (150-450); RBC 4.51 m/uL (3.80-5.40); RDW 13.1 % (11.5-15.5); WBC 16.8 k/uL (3.8-10.6)
[2018-06-14 16:09] LABS: ALT 14 U/L (9-52); AST 15 U/L (14-36); Albumin 3.8 g/dL (3.5-5.0); Alkaline Phosphatase 75 U/L (38-126); Amylase <30 U/L (30-110); Anion Gap 11 mmol/L; Blood Urea Nitrogen 12 mg/dL (7-17); Calcium 9.4 mg/dL (8.4-10.2); Carbon Dioxide 27 mmol/L (22-30); Chloride 98 mmol/L (98-107); Glucose 92 mg/dL (74-99); INR 1.2 (<1.2); Lipase 18 U/L (23-300); Partial Thromboplastin Time 29.7 sec (22.0-30.0); Prothrombin Time 11.2 sec (9.0-12.0); Sodium 136 mmol/L (137-145); Total Bilirubin 0.8 mg/dL (0.2-1.3); Total Protein 6.8 g/dL (6.3-8.2)
--- NOTE | 2018-06-14 17:29 | CT ---
EXAMINATION TYPE: CT abdomen pelvis w con DATE OF EXAM: 06/14/2018 COMPARISON: None HISTORY: Abdominal pain with vomiting CT DLP: 481.4 mGycm Automated exposure control for dose reduction was used. TECHNIQUE: Helical acquisition of images was performed from the lung bases through the pelvis. CONTRAST: Performed without Oral Contrast and with IV Contrast, patient injected with 100 mL of Isovue 300. FINDINGS: Lung bases are clear of consolidation. There is no pleural effusion. Heart size is normal. Heart is d eviated to the right side but I see no sign of atelectasis. There is no pericardial effusion. Stomach wall appears somewhat thickened. Spleen appears normal. Liver shows no focal defect. Bile anderson ts are not dilated. Gallbladder is not seen. There is no adrenal mass. Kidneys show satisfactory contrast opacification. There is no hydronephrosi s. There is 1 cm cortical cyst posterior left kidney. Abdominal aorta is atheromatous. There is no re troperitoneal adenopathy. There is no ascites. There is umbilical hernia that contains fat with sligh t increased density. There is 2.7 cm cyst on the left ovary. There is no sign of free air. I see no f ree fluid in the abdomen. There is diffuse wall thickening of the rectum and sigmoid colon. Descending colon appears fairly nor mal. Abdominal aorta is atheromatous. There are some spondylotic changes in the lumbar spine. There is tho racolumbar levoscoliosis. Uterus is anteverted. Bony pelvis appears intact. Appendix is not definitel y seen. I see no sign of appendicitis. IMPRESSION: MILD WALL THICKENING OF THE STOMACH COULD RELATE TO HYPERTROPHIC GASTRITIS. SIGNIFICANT WALL THICKENING OF THE RECTOSIGMOID COLON IS CONSISTENT WITH A NONSPECIFIC COLITIS. LEFT OVARIAN CYST. Mild fat stranding at the umbilical hernia could relate to mild inflammatory process involving hernia starla fat.
[2018-06-14 18:15] LABS: Appearance,Urine Clear (Clear); Bilirubin,Urine Negative (Negative); Blood,Urine Negative (Negative); Color,Urine Yellow; Glucose,Urine (UA) Negative (Negative); Ketones,Urine 3+ (Negative); Leukocyte Esterase,Urine Negative (Negative); Nitrite,Urine Negative (Negative); PH, Urine 6.5 (5.0-8.0); Protein,Urine Trace (Negative)
[2018-06-14] MEDS ORDERED: PANTOPRAZOLE 40 MG/10 ML VIAL IVP STA (18:20)
[2018-06-14 18:21] LABS: Specific Gravity,Urine >1.050 (1.001-1.035)
[2018-06-14] MEDS ORDERED: ACETAMINOPHEN TAB 325 MG TAB PO PRN (18:21)
[2018-06-14] MEDS ORDERED: NALOXONE 0.4 MG/ML 1 ML VIAL IV PRN (18:21)
[2018-06-14] MEDS: HYDROmorphone 1 MG/ML 1 ML SYRINGE IVP PRN ×2 (19:50→23:09)
[2018-06-14] MEDS: ONDANSETRON 4 MG/2 ML VIAL IVP PRN (19:50)
[2018-06-14] MEDS: PANTOPRAZOLE 40 MG/10 ML VIAL IV SCH (21:39)
[2018-06-14] MEDS: MONTELUKAST 10 MG TAB PO SCH (23:09)
[2018-06-14] MEDS: CHOLECALCIFEROL 1,000 UNIT TAB PO SCH (23:09)
[2018-06-14] MEDS: IPRATROPIUM-ALBUTEROL 3 ML NEB INHALATION PRN (23:58)
[2018-06-15] MEDS: DILTIAZEM CD 240 MG CAP.ER.24H PO SCH ×2 (00:09→21:11)
[2018-06-15] MEDS: PRAMIPEXOLE 0.5 MG TAB PO SCH ×2 (00:09→21:11)
[2018-06-15] MEDS: SODIUM CHLORIDE 0.9% 1,000 ML IV SCH ×3 (00:10→16:47)
[2018-06-15] MEDS: HYDROmorphone 1 MG/ML 1 ML SYRINGE IVP PRN ×6 (02:04→18:00)
[2018-06-15] MEDS: ONDANSETRON 4 MG/2 ML VIAL IVP PRN ×3 (02:04→18:03)
[2018-06-15] MEDS: PANTOPRAZOLE 40 MG/10 ML VIAL IV SCH ×2 (08:48→21:11)
[2018-06-15] MEDS: IPRATROPIUM-ALBUTEROL 3 ML NEB INHALATION PRN ×4 (09:14→19:22)
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
[2018-06-15 15:14] LABS: Basophils % (A) 0 %; Eosinophils # (A) 0.1 k/uL (0-0.7); Eosinophils % (A) 1 %; HCT 36.7 % (34.0-46.0); HGB 11.8 gm/dL (11.4-16.0); Hypochromasia Slight; Lymphocytes # (A) 1.7 k/uL (1.0-4.8); Lymphocytes % (A) 14 %; MCH 30.5 pg (25.0-35.0); MCHC 32.2 g/dL (31.0-37.0); MCV 94.7 fL (80.0-100.0); Mean Platelet Volume 7.7; Monocytes # (A) 0.7 k/uL (0-1.0); Monocytes % (A) 6 %; Neutrophils # (A) 9.3 k/uL (1.3-7.7); Neutrophils % (A) 77 %; Platelet Count 238 k/uL (150-450); RBC 3.87 m/uL (3.80-5.40); WBC 12.1 k/uL (3.8-10.6)
[2018-06-15 15:19] LABS: ALT 19 U/L (9-52); AST 10 U/L (14-36); Albumin 3.1 g/dL (3.5-5.0); Alkaline Phosphatase 64 U/L (38-126); Anion Gap 10 mmol/L; Blood Urea Nitrogen 9 mg/dL (7-17); Calcium 8.7 mg/dL (8.4-10.2); Carbon Dioxide 27 mmol/L (22-30); Chloride 100 mmol/L (98-107); Glucose 66 mg/dL (74-99); Potassium 3.7 mmol/L (3.5-5.1); Sodium 137 mmol/L (137-145); Total Bilirubin 0.7 mg/dL (0.2-1.3); Total Protein 5.8 g/dL (6.3-8.2)
[2018-06-15] MEDS: PIPERACILLIN-TAZOBACTAM 3.375 GM in SODIUM CHLORIDE 0.9% 100 ML IVPB SCH ×2 (16:43→22:18)
[2018-06-15] MEDS: metroNIDAZOLE-NS PMX 500 MG in SALINE 1 100ML.BAG IVPB SCH (19:26)
[2018-06-15] MEDS: HYDROcodone/APAP 5-325MG 1 EACH TAB PO PRN (21:10)
[2018-06-15] MEDS: MONTELUKAST 10 MG TAB PO SCH (21:11)
[2018-06-15] MEDS: CHOLECALCIFEROL 1,000 UNIT TAB PO SCH (21:11)
[2018-06-16] MEDS: HYDROmorphone 1 MG/ML 1 ML SYRINGE IVP PRN ×8 (00:14→22:40)
[2018-06-16] MEDS: metroNIDAZOLE-NS PMX 500 MG in SALINE 1 100ML.BAG IVPB SCH ×4 (01:06→23:50)
[2018-06-16] MEDS: ONDANSETRON 4 MG/2 ML VIAL IVP PRN (03:05)
[2018-06-16] MEDS: SODIUM CHLORIDE 0.9% 1,000 ML IV SCH ×2 (03:05→12:22)
[2018-06-16] MEDS: PIPERACILLIN-TAZOBACTAM 3.375 GM in SODIUM CHLORIDE 0.9% 100 ML IVPB SCH ×3 (06:00→21:38)
[2018-06-16] MEDS: HYDROcodone/APAP 5-325MG 1 EACH TAB PO PRN ×5 (07:11→21:38)
[2018-06-16] MEDS: PANTOPRAZOLE 40 MG/10 ML VIAL IV SCH ×2 (08:04→20:56)
[2018-06-16 09:20] LABS: Basophils % (A) 0 %; Eosinophils # (A) 0.1 k/uL (0-0.7); Eosinophils % (A) 1 %; HCT 36.4 % (34.0-46.0); HGB 11.9 gm/dL (11.4-16.0); Lymphocytes # (A) 1.1 k/uL (1.0-4.8); Lymphocytes % (A) 8 %; MCH 30.4 pg (25.0-35.0); MCHC 32.6 g/dL (31.0-37.0); MCV 93.2 fL (80.0-100.0); Mean Platelet Volume 8.3; Monocytes # (A) 0.8 k/uL (0-1.0); Monocytes % (A) 6 %; Neutrophils # (A) 11.2 k/uL (1.3-7.7); Neutrophils % (A) 83 %; Platelet Count 243 k/uL (150-450); RBC 3.91 m/uL (3.80-5.40); WBC 13.4 k/uL (3.8-10.6)
[2018-06-16] MEDS: BUDESONIDE 0.5 MG/2 ML NEBU INHALATION SCH ×3 (09:34→20:45)
[2018-06-16] MEDS: IPRATROPIUM-ALBUTEROL 3 ML NEB INHALATION PRN ×4 (09:34→20:45)
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
[2018-06-16 11:49] LABS: ALT 20 U/L (9-52); AST 11 U/L (14-36); Albumin 2.9 g/dL (3.5-5.0); Alkaline Phosphatase 57 U/L (38-126); Anion Gap 9 mmol/L; Blood Urea Nitrogen 5 mg/dL (7-17); Calcium 8.4 mg/dL (8.4-10.2); Carbon Dioxide 26 mmol/L (22-30); Chloride 99 mmol/L (98-107); Glucose 73 mg/dL (74-99); Potassium 3.4 mmol/L (3.5-5.1); Sodium 134 mmol/L (137-145); Total Bilirubin 0.7 mg/dL (0.2-1.3); Total Protein 5.4 g/dL (6.3-8.2)
[2018-06-16] MEDS ORDERED: Potassium Replacement Protocol 1 EACH MISC MISCELLANE PRN (15:47)
[2018-06-16] MEDS: POTASSIUM CHLORIDE ER 20 MEQ TAB.ER PO SCH ×4 (16:20→20:57)
[2018-06-16 18:18] LABS: Magnesium 1.5 mg/dL (1.6-2.3); Potassium 3.4 mmol/L (3.5-5.1)
--- NOTE | 2018-06-16 19:11 | P.PN ---
Subjective Progress Note Date: 06/16/18 Lula Weathers is a 63-year-old female who presented to [facility] emergency room with a chief complaint of abdominal pain nausea, vomiting and diarrhea patient was evaluated in the emergency room, physical exam was positive for left lower quadrant tenderness, computed tomography scan of the abdomen and pelvis was done and revealed evidence of acute gastritis and acute colitis patient was admitted to medical floor, she was started on IV antibiotic Zosyn and Flagyl stools for C. diff was ordered, surgical consultation and GI consultation was requested. On 06/16/2018 patient was seen and examined she is feeling somewhat better she is alert and oriented 3 she is still complaining of abdominal pain and complaining of diarrhea, she has nausea but no vomiting, otherwise she denies any complaints there is no fever or chills no headache or dizziness no chest pain no shortness of breath no cough and no urinary symptoms Objective - Vital Signs Vital signs: Vital Signs Temp 98.3 F 06/16/18 14:54 Pulse 80 06/16/18 16:53 Resp 16 06/16/18 14:54 BP 115/55 06/16/18 14:54 Pulse Ox 96 06/16/18 14:54 Intake & Output 06/16/18 06/16/18 06/17/18 06:59 18:59 06:59 Intake Total 1000 Balance 1000 Intake: Intake, IV Titration 1000 Amount Piperacillin-Tazobactam 3 100 .375 gm In Sodium Chloride 0.9% 100 ml @ 25 mls/hr IVPB Q8H [facility] Rx#: [id number] Sodium Chloride 0.9% 1, 800 000 ml @ 100 mls/hr IV . Q10H [facility] Rx#:[id number] metroNIDAZOLE-NS PMX 500 100 mg In Saline 1 100ml.bag @ 100 mls/hr IVPB Q8HR [facility] Rx#:[id number] Other: Voiding Method Toilet # Voids 3 # Bowel Movements 2 - Exam In general patient is alert and oriented 3 in no apparent distress HEENT head normocephalic and atraumatic Neck is supple no JVD no goiter no lymphadenopathy Chest exam reveals a few scattered crackles bilaterally no wheezing Cardiac exam reveals regular heart sounds S1 and S2 no gallops no murmurs Abdomen is soft with mild diffuse tenderness with moderate to severe tenderness in the left lower quadrant Extremity exam reveals no edema no cyanosis or clubbing - Labs CBC & Chem 7: 06/16/18 08:14 06/16/18 17:54 Labs: Abnormal Lab Results - Last 24 Hours (Table) 06/16/18 06/16/18 06/16/18 Range/Units 08:14 11:13 17:54 WBC 13.4 H (3.8-10.6) k/uL Neutrophils # 11.2 H (1.3-7.7) k/uL Sodium 134 L (137-145) mmol/L Potassium 3.4 L 3.4 L (3.5-5.1) mmol/L BUN 5 L (7-17) mg/dL Creatinine 0.28 L (0.52-1.04) mg/dL Glucose 73 L (74-99) mg/dL Magnesium 1.5 L (1.6-2.3) mg/dL AST 11 L (14-36) U/L Total Protein 5.4 L (6.3-8.2) g/dL Albumin 2.9 L (3.5-5.0) g/dL Microbiology - Last 24 Hours (Table) 06/14/18 15:40 Blood Culture - Preliminary Blood No Growth after 48 hours Assessment and Plan Plan: #1 abdominal pain with nausea vomiting and diarrhea there is evidence of acute gastritis and evidence of acute colitis on computed tomography scan patient was started on IV Protonix in the emergency room IV Zosyn and IV Flagyl were added Will check stools for C. diff GI consultation and surgical consultation were requested #2 evidence of umbilical hernia with fat stranding related to mild inflammatory process surgical consultation requested #3 underlying history of hypertension #4 underlying history of COPD Plan is to admit to medical floor proceed with IV antibiotic obtain GI and surgical consult check stools for C. diff recheck labs and follow closely
[2018-06-16] MEDS: PRAMIPEXOLE 0.5 MG TAB PO SCH (20:56)
[2018-06-16] MEDS: CHOLECALCIFEROL 1,000 UNIT TAB PO SCH (20:56)
[2018-06-16] MEDS: MONTELUKAST 10 MG TAB PO SCH (20:57)
[2018-06-16] MEDS: DILTIAZEM CD 240 MG CAP.ER.24H PO SCH (20:57)
[2018-06-17] MEDS: HYDROcodone/APAP 5-325MG 1 EACH TAB PO PRN ×6 (02:01→23:33)
[2018-06-17] MEDS: SODIUM CHLORIDE 0.9% 1,000 ML IV SCH ×5 (03:15→23:37)
[2018-06-17] MEDS: HYDROmorphone 1 MG/ML 1 ML SYRINGE IVP PRN ×5 (04:42→21:24)
[2018-06-17] MEDS: PIPERACILLIN-TAZOBACTAM 3.375 GM in SODIUM CHLORIDE 0.9% 100 ML IVPB SCH ×3 (07:17→22:17)
[2018-06-17] MEDS: ONDANSETRON 4 MG/2 ML VIAL IVP PRN (07:18)
--- NOTE | 2018-06-17 07:42 | P.PN ---
Subjective Progress Note Date: 06/17/18 Patient seen and examined at bedside. States her abdominal pain is improving. She states that she is having less loose stool than yesterday. She is tolerating clear liquid diet and denies any nausea or vomiting. Objective - Vital Signs Vital signs: Vital Signs Temp 98.5 F 06/17/18 04:23 Pulse 76 06/17/18 04:23 Resp 16 06/17/18 04:23 BP 117/56 06/17/18 04:23 Pulse Ox 90 L 06/17/18 04:23 Intake & Output 06/16/18 06/17/18 06/17/18 18:59 06:59 18:59 Intake Total 1000 Balance 1000 Intake: Intake, IV Titration 1000 Amount Piperacillin-Tazobactam 3 100 .375 gm In Sodium Chloride 0.9% 100 ml @ 25 mls/hr IVPB Q8H [id number] Rx#: [id number] Sodium Chloride 0.9% 1, 800 000 ml @ 100 mls/hr IV . Q10H [facility] Rx#:[id number] metroNIDAZOLE-NS PMX 500 100 mg In Saline 1 100ml.bag @ 100 mls/hr IVPB Q8HR [facility] Rx#:[id number] Other: Voiding Method Toilet Toilet # Voids 3 2 # Bowel Movements 2 - Constitutional General appearance: Present: cooperative - Respiratory Details: No difficulty with respiration - Gastrointestinal Gastrointestinal Comment(s): Soft, mild tenderness in the bilateral lower quadrants that is much improved, nondistended, no rebound, no guarding - Psychiatric Psychiatric: Present: A&O x's 3 - Labs CBC & Chem 7: 06/16/18 08:14 06/16/18 17:54 Labs: Abnormal Lab Results - Last 24 Hours (Table) 06/16/18 06/16/18 06/16/18 Range/Units 08:14 11:13 17:54 WBC 13.4 H (3.8-10.6) k/uL Neutrophils # 11.2 H (1.3-7.7) k/uL Sodium 134 L (137-145) mmol/L Potassium 3.4 L 3.4 L (3.5-5.1) mmol/L BUN 5 L (7-17) mg/dL Creatinine 0.28 L (0.52-1.04) mg/dL Glucose 73 L (74-99) mg/dL Magnesium 1.5 L (1.6-2.3) mg/dL AST 11 L (14-36) U/L Total Protein 5.4 L (6.3-8.2) g/dL Albumin 2.9 L (3.5-5.0) g/dL Microbiology - Last 24 Hours (Table) 06/14/18 15:40 Blood Culture - Preliminary Blood No Growth after 48 hours Assessment and Plan (1) Acute colitis Narrative/Plan: 63-year-old female with acute colitis - Continue antibiotics, the patient appears to be improving with antibiotic therapy - Advance to full liquid diet - Currently no plan for invasive procedure - Continue to follow clinical progression Current Visit: Yes Status: Acute Code(s): K52.9 - NONINFECTIVE GASTROENTERITIS AND COLITIS, UNSPECIFIED SNOMED Code(s): 85550000 (2) Umbilical hernia Narrative/Plan: Umbilical hernia does not appear to be incarcerated on exam and on CT of the abdomen pelvis No plan for acute intervention for umbilical hernia at this time Current Visit: Yes Status: Acute Code(s): K42.9 - UMBILICAL HERNIA WITHOUT OBSTRUCTION OR GANGRENE SNOMED Code(s): 726868257
[2018-06-17] MEDS: metroNIDAZOLE-NS PMX 500 MG in SALINE 1 100ML.BAG IVPB SCH ×3 (08:11→23:33)
[2018-06-17] MEDS: PANTOPRAZOLE 40 MG/10 ML VIAL IV SCH ×2 (08:11→22:17)
[2018-06-17 08:17] LABS: Basophils % (A) 0 %; Eosinophils # (A) 0.4 k/uL (0-0.7); Eosinophils % (A) 6 %; HCT 36.2 % (34.0-46.0); HGB 11.8 gm/dL (11.4-16.0); Lymphocytes # (A) 1.2 k/uL (1.0-4.8); Lymphocytes % (A) 18 %; MCH 30.1 pg (25.0-35.0); MCHC 32.6 g/dL (31.0-37.0); MCV 92.4 fL (80.0-100.0); Mean Platelet Volume 7.5; Monocytes # (A) 0.4 k/uL (0-1.0); Monocytes % (A) 6 %; Neutrophils # (A) 4.2 k/uL (1.3-7.7); Neutrophils % (A) 66 %; Platelet Count 262 k/uL (150-450); RBC 3.91 m/uL (3.80-5.40); RDW 13.2 % (11.5-15.5); WBC 6.4 k/uL (3.8-10.6)
[2018-06-17] MEDS: BUDESONIDE 0.5 MG/2 ML NEBU INHALATION SCH ×2 (08:21→19:58)
[2018-06-17] MEDS: IPRATROPIUM-ALBUTEROL 3 ML NEB INHALATION PRN ×4 (08:22→19:58)
[2018-06-17 08:27] LABS: ALT 10 U/L (9-52); AST 13 U/L (14-36); Albumin 2.9 g/dL (3.5-5.0); Alkaline Phosphatase 58 U/L (38-126); Anion Gap 7 mmol/L; Blood Urea Nitrogen <2 mg/dL (7-17); Calcium 8.5 mg/dL (8.4-10.2); Carbon Dioxide 29 mmol/L (22-30); Chloride 101 mmol/L (98-107); Glucose 75 mg/dL (74-99); Potassium 3.7 mmol/L (3.5-5.1); Sodium 137 mmol/L (137-145); Total Bilirubin 0.5 mg/dL (0.2-1.3); Total Protein 5.6 g/dL (6.3-8.2)
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
[2018-06-17] MEDS ORDERED: Magnesium Replacement Protocol 1 EACH MISC MISCELLANE PRN (10:57)
--- NOTE | 2018-06-17 11:06 | P.PN ---
Subjective Progress Note Date: 06/17/18 Lula Weathers is a 63-year-old female who presented to [facility] emergency room with a chief complaint of abdominal pain nausea, vomiting and diarrhea patient was evaluated in the emergency room, physical exam was positive for left lower quadrant tenderness, computed tomography scan of the abdomen and pelvis was done and revealed evidence of acute gastritis and acute colitis patient was admitted to medical floor, she was started on IV antibiotic Zosyn and Flagyl stools for C. diff was ordered, surgical consultation and GI consultation was requested. On 06/16/2018 patient was seen and examined she is feeling somewhat better she is alert and oriented 3 she is still complaining of abdominal pain and complaining of diarrhea, she has nausea but no vomiting, otherwise she denies any complaints there is no fever or chills no headache or dizziness no chest pain no shortness of breath no cough and no urinary symptoms On 06/17/2018 patient is alert and oriented 3. Patient is still complaining of some abdominal pain. Patient states her stools have decreased. Patient denies any vomiting. Patient stating she is still having some nausea. At this time patient denies chest pain or shortness of breath. Patient denies any urinary burning or frequency. Objective - Vital Signs Vital signs: Vital Signs Temp 98.5 F 06/17/18 04:23 Pulse 80 06/17/18 08:34 Resp 16 06/17/18 04:23 BP 117/56 06/17/18 04:23 Pulse Ox 90 L 06/17/18 04:23 Intake & Output 06/16/18 06/17/18 06/17/18 18:59 06:59 18:59 Intake Total 1000 Balance 1000 Intake: Intake, IV Titration 1000 Amount Piperacillin-Tazobactam 3 100 .375 gm In Sodium Chloride 0.9% 100 ml @ 25 mls/hr IVPB Q8H [facility] Rx#: [id number] Sodium Chloride 0.9% 1, 800 000 ml @ 100 mls/hr IV . Q10H [facility] Rx#:[id number] metroNIDAZOLE-NS PMX 500 100 mg In Saline 1 100ml.bag @ 100 mls/hr IVPB Q8HR [facility] Rx#:[id number] Other: Voiding Method Toilet Toilet Toilet # Voids 3 2 # Bowel Movements 2 - Exam Head normocephalic Neck supple Lungs clear to auscultation bilaterally no wheezing or crackles Heart regular rate and rhythm S1-S2, no rub or gallop Abdomen is soft with mild diffuse tenderness with moderate to severe tenderness in the left lower quadrant Extremities no edema Neuro alert and orientated to 3 - Labs CBC & Chem 7: 06/17/18 07:47 06/17/18 07:47 Labs: Abnormal Lab Results - Last 24 Hours (Table) 06/16/18 06/16/18 06/17/18 Range/Units 11:13 17:54 07:47 Sodium 134 L (137-145) mmol/L Potassium 3.4 L 3.4 L (3.5-5.1) mmol/L BUN 5 L <2 L (7-17) mg/dL Creatinine 0.28 L 0.27 L (0.52-1.04) mg/dL Glucose 73 L (74-99) mg/dL Magnesium 1.5 L (1.6-2.3) mg/dL AST 11 L 13 L (14-36) U/L Total Protein 5.4 L 5.6 L (6.3-8.2) g/dL Albumin 2.9 L 2.9 L (3.5-5.0) g/dL 06/17/18 Range/Units 07:47 Sodium (137-145) mmol/L Potassium (3.5-5.1) mmol/L BUN (7-17) mg/dL Creatinine (0.52-1.04) mg/dL Glucose (74-99) mg/dL Magnesium 1.5 L (1.6-2.3) mg/dL AST (14-36) U/L Total Protein (6.3-8.2) g/dL Albumin (3.5-5.0) g/dL Microbiology - Last 24 Hours (Table) 06/14/18 15:40 Blood Culture - Preliminary Blood No Growth after 48 hours Assessment and Plan Assessment: #1 abdominal pain with nausea vomiting and diarrhea there is evidence of acute gastritis and evidence of acute colitis on computed tomography scan patient was started on IV Protonix in the emergency room IV Zosyn and IV Flagyl were added Will check stools for C. diff. per GI services and sinuous supportive care and diet as tolerated. If patient continues to have loose stools will reorder stool study. Continue antibiotic treatment for 10-14 days. Per surgical services no plans for invasive procedure at this time. Advance to full liquid diet. Patient remains on Flagyl and Zosyn. #2 evidence of umbilical hernia with fat stranding related to mild inflammatory process surgical consultation requested #3 underlying history of hypertension #4 underlying history of COPD #5 hypomagnesemia. Magnesium 1.5. Replace per protocol DVT prophylaxis heparin. GI prophylaxis Protonix Per GI services patient should plan to follow-up outpatient 4-6 weeks after acute process for EGD and colonoscopy I performed an examination of the patient and discussed their management with the Nurse Practitioner. I have reviewed the Nurse Practitioner's notes and agree with the documented findings and plan of care
[2018-06-17] MEDS: MAGNESIUM SULFATE-D5W PMX 1 GM in DEXTROSE/WATER 1 100ML.BAG IVPB SCH ×2 (12:39→15:07)
[2018-06-17] MEDS: DILTIAZEM CD 240 MG CAP.ER.24H PO SCH (22:16)
[2018-06-17] MEDS: CHOLECALCIFEROL 1,000 UNIT TAB PO SCH (22:16)
[2018-06-17] MEDS: MONTELUKAST 10 MG TAB PO SCH (22:16)
[2018-06-17] MEDS: PRAMIPEXOLE 0.5 MG TAB PO SCH (22:16)
[2018-06-17] MEDS: HEPARIN SODIUM,PORCINE 5,000 UNIT/ML 1 ML VIAL SQ SCH (22:18)
--- NOTE | 2018-06-17 22:19 | P.PN ---
Subjective Progress Note Date: 06/17/18 Principal diagnosis: Diarrhea, abdominal pain Patient reporting that she is feeling better overall. She has not had any bowel movements today and reports that abdominal pain is improving. She is tolerating her diet. Objective - Vital Signs Vital signs: Vital Signs Temp 98.0 F 06/17/18 21:00 Pulse 79 06/17/18 21:00 Resp 16 06/17/18 21:00 BP 120/61 06/17/18 21:00 Pulse Ox 97 06/17/18 21:00 Intake & Output 06/17/18 06/17/18 06/18/18 06:59 18:59 06:59 Other: Voiding Method Toilet Toilet # Voids 2 # Bowel Movements 0 - Exam On physical examination, patient appears comfortable in no apparent distress. HEAD: Normocephalic, atraumatic. EYES: No scleral icterus. No conjunctival injection. MOUTH: No lesions, tongue midline. NECK: Trachea midline, no gross abnormalities. CHEST: Clear to auscultation with no wheezing or rhonchi appreciated. HEART: Regular rate and rhythm. ABDOMEN: Soft, obese. Mildly tender to palpation. Bowel sounds are positive. No organomegaly. No guarding or rigidity. EXTREMITIES: No pedal edema. SKIN: No rashes, no jaundice. NEUROLOGIC: Alert and oriented x3. No focal deficits. - Labs CBC & Chem 7: 06/17/18 07:47 06/17/18 07:47 Labs: Abnormal Lab Results - Last 24 Hours (Table) 06/17/18 06/17/18 Range/Units 07:47 07:47 BUN <2 L (7-17) mg/dL Creatinine 0.27 L (0.52-1.04) mg/dL Magnesium 1.5 L (1.6-2.3) mg/dL AST 13 L (14-36) U/L Total Protein 5.6 L (6.3-8.2) g/dL Albumin 2.9 L (3.5-5.0) g/dL Microbiology - Last 24 Hours (Table) 06/14/18 15:40 Blood Culture - Preliminary Blood No Growth after 72 hours Assessment and Plan (1) Acute colitis Narrative/Plan: Thickening of the rectosigmoid on computed tomography scan suggestive of colitis , unknown etiology and may reflect infectious etiology or ischemia in the setting of coronary artery disease with inflammatory process less likely given the acuity of her symptoms. Symptomatically improving. Current Visit: Yes Status: Acute Code(s): K52.9 - NONINFECTIVE GASTROENTERITIS AND COLITIS, UNSPECIFIED SNOMED Code(s): 41474678 (2) Diarrhea Narrative/Plan: Secondary to above. Current Visit: Yes Status: Acute Code(s): R19.7 - DIARRHEA, UNSPECIFIED SNOMED Code(s): 83091338 (3) Gastritis Narrative/Plan: Secondary to above. Current Visit: Yes Status: Acute Code(s): K29.70 - GASTRITIS, UNSPECIFIED, WITHOUT BLEEDING SNOMED Code(s): 8780512 (4) Nausea & vomiting Narrative/Plan: Secondary to above. Current Visit: Yes Status: Acute Code(s): R11.2 - NAUSEA WITH VOMITING, UNSPECIFIED SNOMED Code(s): 01307112 (5) Abdominal pain Narrative/Plan: Secondary to above. Current Visit: No Status: Acute Code(s): R10.9 - UNSPECIFIED ABDOMINAL PAIN SNOMED Code(s): 43478176 Plan: Supportive care Okay for diet as tolerated Monitor stool output and symptoms, no bowel movements reported today Patient attempted to give a stool sample, however was deemed to formed for analysis. If loose stool continues would reorder stool studies. Patient should follow-up with gastroenterology for EGD and colonoscopy in 4-6 weeks after acute process is improved for further evaluation of CT findings of possible gastritis and rectosigmoid colitis. Continue antibiotic treatment or 10-14 days given leukocytosis and symptoms on presentation. Thank you for allowing us to participate in the care of this patient
[2018-06-18] MEDS: HYDROmorphone 1 MG/ML 1 ML SYRINGE IVP PRN ×6 (02:04→21:30)
[2018-06-18] MEDS: HYDROcodone/APAP 5-325MG 1 EACH TAB PO PRN ×5 (03:25→20:45)
[2018-06-18] MEDS: PIPERACILLIN-TAZOBACTAM 3.375 GM in SODIUM CHLORIDE 0.9% 100 ML IVPB SCH ×3 (05:03→20:48)
[2018-06-18] MEDS: HEPARIN SODIUM,PORCINE 5,000 UNIT/ML 1 ML VIAL SQ SCH ×2 (07:50→19:25)
[2018-06-18] MEDS: metroNIDAZOLE-NS PMX 500 MG in SALINE 1 100ML.BAG IVPB SCH ×2 (07:50→16:21)
[2018-06-18] MEDS: PANTOPRAZOLE 40 MG/10 ML VIAL IV SCH ×2 (07:52→19:25)
[2018-06-18] MEDS ORDERED: Magnesium Replacement Protocol 1 EACH MISC MISCELLANE PRN (08:32)
[2018-06-18] MEDS: IPRATROPIUM-ALBUTEROL 3 ML NEB INHALATION PRN ×3 (08:42→19:56)
[2018-06-18] MEDS: BUDESONIDE 0.5 MG/2 ML NEBU INHALATION SCH ×2 (08:42→19:56)
[2018-06-18] MEDS ORDERED: FAMOTIDINE 20 MG TAB PO SCH (09:00)
[2018-06-18] MEDS: SODIUM CHLORIDE 0.9% 1,000 ML IV SCH ×2 (09:55→21:33)
[2018-06-18] MEDS: MAGNESIUM SULFATE-D5W PMX 1 GM in DEXTROSE/WATER 1 100ML.BAG IVPB SCH ×2 (09:56→11:00)
--- NOTE | 2018-06-18 11:16 | P.PN ---
Subjective Progress Note Date: 06/18/18 Lula Weathers is a 63-year-old female who presented to [facility] emergency room with a chief complaint of abdominal pain nausea, vomiting and diarrhea patient was evaluated in the emergency room, physical exam was positive for left lower quadrant tenderness, computed tomography scan of the abdomen and pelvis was done and revealed evidence of acute gastritis and acute colitis patient was admitted to medical floor, she was started on IV antibiotic Zosyn and Flagyl stools for C. diff was ordered, surgical consultation and GI consultation was requested. On 06/16/2018 patient was seen and examined she is feeling somewhat better she is alert and oriented 3 she is still complaining of abdominal pain and complaining of diarrhea, she has nausea but no vomiting, otherwise she denies any complaints there is no fever or chills no headache or dizziness no chest pain no shortness of breath no cough and no urinary symptoms On 06/17/2018 patient is alert and oriented 3. Patient is still complaining of some abdominal pain. Patient states her stools have decreased. Patient denies any vomiting. Patient stating she is still having some nausea. At this time patient denies chest pain or shortness of breath. Patient denies any urinary burning or frequency. On 06/18/2018 patient is alert and oriented 3. Patient still complaining of tenderness and abdominal pain. Patient states she has not been having any diarrhea. Patient is denying any vomiting or nausea at this time. Patient denies chest pain or shortness breath. Patient denies any urinary burning or frequency. Patient has been tolerating a full liquid diet Objective - Vital Signs Vital signs: Vital Signs Temp 98.1 F 06/18/18 05:00 Pulse 82 06/18/18 08:53 Resp 14 06/18/18 07:20 BP 113/61 06/18/18 05:00 Pulse Ox 97 06/18/18 05:00 Intake & Output 06/17/18 06/18/18 06/18/18 18:59 06:59 18:59 Intake Total 840 Balance 840 Weight 59 kg Intake: Oral 840 Other: Voiding Method Toilet Toilet Toilet # Voids 3 # Bowel Movements 0 0 - Exam Head normocephalic Neck supple Lungs clear to auscultation bilaterally no wheezing or crackles Heart regular rate and rhythm S1-S2, no rub or gallop Abdomen is soft with mild diffuse tenderness with moderate to severe tenderness in the left lower quadrant Extremities no edema Neuro alert and orientated to 3 - Labs CBC & Chem 7: 06/17/18 07:47 06/17/18 07:47 Labs: Microbiology - Last 24 Hours (Table) 06/14/18 15:40 Blood Culture - Preliminary Blood No Growth after 72 hours Assessment and Plan Assessment: #1 abdominal pain with nausea vomiting and diarrhea there is evidence of acute gastritis and evidence of acute colitis on computed tomography scan patient was started on IV Protonix in the emergency room IV Zosyn and IV Flagyl were added Will check stools for C. diff. per GI services and sinuous supportive care and diet as tolerated. If patient continues to have loose stools will reorder stool study. Continue antibiotic treatment for 10-14 days. Per surgical services no plans for invasive procedure at this time. Advance to full liquid diet. Patient remains on Flagyl and Zosyn. Awaiting surgical and GI services for advancement in diet #2 evidence of umbilical hernia with fat stranding related to mild inflammatory process surgical consultation requested #3 underlying history of hypertension #4 underlying history of COPD #5 hypomagnesemia. Magnesium 1.5. Replace per protocol DVT prophylaxis heparin. GI prophylaxis Protonix Per GI services patient should plan to follow-up outpatient 4-6 weeks after acute process for EGD and colonoscopy I performed an examination of the patient and discussed their management with the Nurse Practitioner. I have reviewed the Nurse Practitioner's notes and agree with the documented findings and plan of care
[2018-06-18 12:00] VITALS: BMI 23.8
--- NOTE | 2018-06-18 13:22 | P.PN ---
Subjective Progress Note Date: 06/18/18 Patient seen and examined at bedside. States her abdominal pain continues to improve. Denies any liquid bowel movements. Denies nausea and vomiting and tolerating a full liquid diet. Objective - Vital Signs Vital signs: Vital Signs Temp 98.3 F 06/18/18 11:44 Pulse 74 06/18/18 11:44 Resp 16 06/18/18 11:44 BP 142/78 06/18/18 11:44 Pulse Ox 98 06/18/18 11:44 Intake & Output 06/17/18 06/18/18 06/18/18 18:59 06:59 18:59 Intake Total 840 Balance 840 Weight 59 kg 59 kg Intake: Oral 840 Other: Voiding Method Toilet Toilet Toilet # Voids 3 # Bowel Movements 0 0 - Constitutional General appearance: Present: cooperative - Respiratory Details: No difficulty with respiration - Gastrointestinal Gastrointestinal Comment(s): Soft, nontender, nondistended, no rebound, no guarding - Psychiatric Psychiatric: Present: A&O x's 3 - Labs CBC & Chem 7: 06/17/18 07:47 06/17/18 07:47 Labs: Microbiology - Last 24 Hours (Table) 06/14/18 15:40 Blood Culture - Preliminary Blood No Growth after 72 hours Assessment and Plan (1) Acute colitis Narrative/Plan: 63-year-old female with acute colitis - Continue antibiotics, the patient appears to be improving with antibiotic therapy - Advance to soft diet - Currently no plan for invasive procedure - Continue to follow clinical progression Current Visit: Yes Status: Acute Code(s): K52.9 - NONINFECTIVE GASTROENTERITIS AND COLITIS, UNSPECIFIED SNOMED Code(s): 48815057 (2) Umbilical hernia Current Visit: Yes Status: Acute Code(s): K42.9 - UMBILICAL HERNIA WITHOUT OBSTRUCTION OR GANGRENE SNOMED Code(s): 177338162
[2018-06-18] MEDS: PRAMIPEXOLE 0.5 MG TAB PO SCH (19:25)
[2018-06-18] MEDS: CHOLECALCIFEROL 1,000 UNIT TAB PO SCH ×2 (19:25→19:27)
[2018-06-18] MEDS: MONTELUKAST 10 MG TAB PO SCH (19:25)
[2018-06-18] MEDS: DILTIAZEM CD 240 MG CAP.ER.24H PO SCH (19:25)
[2018-06-19] MEDS: metroNIDAZOLE-NS PMX 500 MG in SALINE 1 100ML.BAG IVPB SCH ×2 (00:06→08:12)
--- NOTE | 2018-06-19 01:08 | P.PN ---
Subjective Progress Note Date: 06/18/18 Principal diagnosis: Diarrhea, abdominal pain Patient tolerating her diet, reporting decreased abdominal pain. No bowel movements today or further loose stool. Objective - Vital Signs Vital signs: Vital Signs Temp 97.9 F 06/18/18 21:13 Pulse 69 06/18/18 21:13 Resp 12 06/18/18 21:13 BP 131/69 06/18/18 21:13 Pulse Ox 98 06/18/18 21:13 Intake & Output 06/18/18 06/18/18 06/19/18 06:59 18:59 06:59 Intake Total 840 800 Balance 840 800 Weight 59 kg 59 kg Intake: Intake, IV Titration 800 Amount Sodium Chloride 0.9% 1, 800 000 ml @ 100 mls/hr IV . Q10H [facility] Rx#:[id number] Oral 840 Other: Voiding Method Toilet Toilet Toilet # Voids 3 # Bowel Movements 0 0 - Exam On physical examination, patient appears comfortable in no apparent distress. HEAD: Normocephalic, atraumatic. EYES: No scleral icterus. No conjunctival injection. MOUTH: No lesions, tongue midline. NECK: Trachea midline, no gross abnormalities. CHEST: Clear to auscultation with no wheezing or rhonchi appreciated. HEART: Regular rate and rhythm. ABDOMEN: Soft, obese. Mildly tender to palpation. Bowel sounds are positive. No organomegaly. No guarding or rigidity. EXTREMITIES: No pedal edema. SKIN: No rashes, no jaundice. NEUROLOGIC: Alert and oriented x3. No focal deficits. - Labs CBC & Chem 7: 06/17/18 07:47 06/17/18 07:47 Labs: Microbiology - Last 24 Hours (Table) 06/14/18 15:40 Blood Culture - Preliminary Blood No Growth after 96 hours Assessment and Plan (1) Acute colitis Narrative/Plan: Thickening of the rectosigmoid on computed tomography scan suggestive of colitis , unknown etiology and may reflect infectious etiology or ischemia in the setting of coronary artery disease with inflammatory process less likely given the acuity of her symptoms. Symptomatically improving. Current Visit: Yes Status: Acute Code(s): K52.9 - NONINFECTIVE GASTROENTERITIS AND COLITIS, UNSPECIFIED SNOMED Code(s): 13223058 (2) Diarrhea Narrative/Plan: Secondary to above. Current Visit: Yes Status: Acute Code(s): R19.7 - DIARRHEA, UNSPECIFIED SNOMED Code(s): 62998832 (3) Gastritis Narrative/Plan: Secondary to above. Current Visit: Yes Status: Acute Code(s): K29.70 - GASTRITIS, UNSPECIFIED, WITHOUT BLEEDING SNOMED Code(s): 3039692 (4) Nausea & vomiting Narrative/Plan: Secondary to above. Current Visit: Yes Status: Acute Code(s): R11.2 - NAUSEA WITH VOMITING, UNSPECIFIED SNOMED Code(s): 45014126 (5) Abdominal pain Narrative/Plan: Secondary to above. Current Visit: No Status: Acute Code(s): R10.9 - UNSPECIFIED ABDOMINAL PAIN SNOMED Code(s): 37821453 Plan: Supportive care Okay for diet as tolerated Monitor stool output and symptoms, no bowel movements reported today Patient attempted to give a stool sample, however was deemed to formed for analysis. If loose stool continues would reorder stool studies. Patient should follow-up with gastroenterology for EGD and colonoscopy in 4-6 weeks after acute process is improved for further evaluation of CT findings of possible gastritis and rectosigmoid colitis. Continue antibiotic treatment or 10-14 days given leukocytosis and symptoms on presentation. Thank you for allowing us to participate in the care of this patient
[2018-06-19] MEDS: HYDROmorphone 1 MG/ML 1 ML SYRINGE IVP PRN ×6 (04:17→22:25)
[2018-06-19] MEDS: PIPERACILLIN-TAZOBACTAM 3.375 GM in SODIUM CHLORIDE 0.9% 100 ML IVPB SCH ×3 (05:44→21:16)
[2018-06-19] MEDS: HYDROcodone/APAP 5-325MG 1 EACH TAB PO PRN ×5 (05:46→21:55)
[2018-06-19] MEDS: BUDESONIDE 0.5 MG/2 ML NEBU INHALATION SCH ×2 (07:42→19:26)
[2018-06-19] MEDS: ONDANSETRON 4 MG/2 ML VIAL IVP PRN (07:43)
[2018-06-19 07:58] LABS: Basophils % (A) 0 %; Eosinophils # (A) 0.5 k/uL (0-0.7); Eosinophils % (A) 8 %; HCT 36.1 % (34.0-46.0); HGB 11.7 gm/dL (11.4-16.0); Hypochromasia Slight; Lymphocytes # (A) 1.3 k/uL (1.0-4.8); Lymphocytes % (A) 20 %; MCH 30.2 pg (25.0-35.0); MCHC 32.5 g/dL (31.0-37.0); MCV 92.7 fL (80.0-100.0); Mean Platelet Volume 7.2; Monocytes # (A) 0.4 k/uL (0-1.0); Monocytes % (A) 6 %; Neutrophils # (A) 4.2 k/uL (1.3-7.7); Neutrophils % (A) 64 %; Platelet Count 318 k/uL (150-450); RDW 13.2 % (11.5-15.5); WBC 6.6 k/uL (3.8-10.6)
[2018-06-19 08:10] LABS: ALT 17 U/L (9-52); AST 13 U/L (14-36); Albumin 3.1 g/dL (3.5-5.0); Alkaline Phosphatase 67 U/L (38-126); Anion Gap 8 mmol/L; Blood Urea Nitrogen 3 mg/dL (7-17); Calcium 8.7 mg/dL (8.4-10.2); Carbon Dioxide 28 mmol/L (22-30); Chloride 104 mmol/L (98-107); Glucose 96 mg/dL (74-99); Magnesium 1.8 mg/dL (1.6-2.3); Sodium 140 mmol/L (137-145); Total Bilirubin 0.3 mg/dL (0.2-1.3); Total Protein 5.8 g/dL (6.3-8.2)
[2018-06-19] MEDS: SODIUM CHLORIDE 0.9% 1,000 ML IV SCH ×2 (08:12→23:44)
[2018-06-19] MEDS: PANTOPRAZOLE 40 MG/10 ML VIAL IV SCH (08:13)
[2018-06-19] MEDS: HEPARIN SODIUM,PORCINE 5,000 UNIT/ML 1 ML VIAL SQ SCH ×2 (08:13→21:55)
--- NOTE | 2018-06-19 12:46 | P.PN ---
Subjective Progress Note Date: 06/19/18 Lula Weathers is a 63-year-old female who presented to [facility] emergency room with a chief complaint of abdominal pain nausea, vomiting and diarrhea patient was evaluated in the emergency room, physical exam was positive for left lower quadrant tenderness, computed tomography scan of the abdomen and pelvis was done and revealed evidence of acute gastritis and acute colitis patient was admitted to medical floor, she was started on IV antibiotic Zosyn and Flagyl stools for C. diff was ordered, surgical consultation and GI consultation was requested. On 06/16/2018 patient was seen and examined she is feeling somewhat better she is alert and oriented 3 she is still complaining of abdominal pain and complaining of diarrhea, she has nausea but no vomiting, otherwise she denies any complaints there is no fever or chills no headache or dizziness no chest pain no shortness of breath no cough and no urinary symptoms On 06/17/2018 patient is alert and oriented 3. Patient is still complaining of some abdominal pain. Patient states her stools have decreased. Patient denies any vomiting. Patient stating she is still having some nausea. At this time patient denies chest pain or shortness of breath. Patient denies any urinary burning or frequency. On 06/18/2018 patient is alert and oriented 3. Patient still complaining of tenderness and abdominal pain. Patient states she has not been having any diarrhea. Patient is denying any vomiting or nausea at this time. Patient denies chest pain or shortness breath. Patient denies any urinary burning or frequency. Patient has been tolerating a full liquid diet On 06/19/2018 patient is alert and oriented 3. Patient states her is improving. Patient states she did have normal bowel movement last night. Patient has denied any nausea vomiting or diarrhea. Patient fiber diet per surgical and GI services. Patient denies chest pain or shortness of breath. Patient denies frequency. Objective - Vital Signs Vital signs: Vital Signs Temp 97.6 F 06/19/18 11:40 Pulse 71 06/19/18 11:40 Resp 18 06/19/18 11:40 BP 130/66 06/19/18 11:40 Pulse Ox 96 06/19/18 11:40 Intake & Output 06/18/18 06/19/18 06/19/18 18:59 06:59 18:59 Intake Total 800 1020 Balance 800 1020 Weight 59 kg 52.5 kg Intake: Intake, IV Titration 800 300 Amount Sodium Chloride 0.9% 1, 800 300 000 ml @ 100 mls/hr IV . Q10H [facility] Rx#:[id number] Oral 720 Other: Voiding Method Toilet Toilet Toilet # Voids 3 2 # Bowel Movements 0 - Exam Head normocephalic Neck supple Lungs clear to auscultation bilaterally no wheezing or crackles Heart regular rate and rhythm S1-S2, no rub or gallop Abdomen is soft with mild diffuse tenderness with moderate to severe tenderness in the left lower quadrant Extremities no edema Neuro alert and orientated to 3 - Labs CBC & Chem 7: 06/19/18 07:27 06/19/18 07:27 Labs: Abnormal Lab Results - Last 24 Hours (Table) 06/19/18 Range/Units 07:27 BUN 3 L (7-17) mg/dL Creatinine 0.36 L (0.52-1.04) mg/dL AST 13 L (14-36) U/L Total Protein 5.8 L (6.3-8.2) g/dL Albumin 3.1 L (3.5-5.0) g/dL Microbiology - Last 24 Hours (Table) 06/14/18 15:40 Blood Culture - Preliminary Blood No Growth after 96 hours Assessment and Plan Assessment: #1 abdominal pain with nausea vomiting and diarrhea there is evidence of acute gastritis and evidence of acute colitis on computed tomography scan patient was started on IV Protonix in the emergency room IV Zosyn and IV Flagyl were added Will check stools for C. diff. per GI services and sinuous supportive care and diet as tolerated. If patient continues to have loose stools will reorder stool study. Continue antibiotic treatment for 10-14 days. Per surgical services no plans for invasive procedure at this time. Advance to full liquid diet. Patient remains on Flagyl and Zosyn. Patient has been advanced to low fiber diet. #2 evidence of umbilical hernia with fat stranding related to mild inflammatory process surgical consultation requested #3 underlying history of hypertension #4 underlying history of COPD #5 hypomagnesemia. Magnesium 1.5. Replace per protocol DVT prophylaxis heparin. GI prophylaxis Protonix Per GI services patient should plan to follow-up outpatient 4-6 weeks after acute process for EGD and colonoscopy I performed an examination of the patient and discussed their management with the Nurse Practitioner. I have reviewed the Nurse Practitioner's notes and agree with the documented findings and plan of care Anticipate possible discharge home tomorrow
[2018-06-19] MEDS: PANTOPRAZOLE 40 MG TABLET PO SCH (15:58)
[2018-06-19] MEDS: metroNIDAZOLE 500 MG TAB PO SCH ×2 (15:58→23:47)
[2018-06-19] MEDS: IPRATROPIUM-ALBUTEROL 3 ML NEB INHALATION PRN (19:26)
[2018-06-19] MEDS: DILTIAZEM CD 240 MG CAP.ER.24H PO SCH (21:10)
[2018-06-19] MEDS: PRAMIPEXOLE 0.5 MG TAB PO SCH (21:11)
[2018-06-19] MEDS: CHOLECALCIFEROL 1,000 UNIT TAB PO SCH (21:11)
[2018-06-19] MEDS: MONTELUKAST 10 MG TAB PO SCH (21:11)
[2018-06-20] MEDS: HYDROmorphone 1 MG/ML 1 ML SYRINGE IVP PRN ×3 (01:45→09:08)
[2018-06-20] MEDS: HYDROcodone/APAP 5-325MG 1 EACH TAB PO PRN ×3 (02:39→14:17)
[2018-06-20 05:12] VITALS: RESP 18; TEMP 98.3
[2018-06-20] MEDS: PIPERACILLIN-TAZOBACTAM 3.375 GM in SODIUM CHLORIDE 0.9% 100 ML IVPB SCH ×2 (06:09→14:22)
[2018-06-20 07:44] LABS: Basophils % (A) 0 %; Eosinophils # (A) 0.7 k/uL (0-0.7); Eosinophils % (A) 10 %; HCT 37.8 % (34.0-46.0); HGB 11.5 gm/dL (11.4-16.0); Hypochromasia Slight; Lymphocytes # (A) 2.2 k/uL (1.0-4.8); Lymphocytes % (A) 31 %; MCH 28.4 pg (25.0-35.0); MCHC 30.3 g/dL (31.0-37.0); MCV 93.7 fL (80.0-100.0); Mean Platelet Volume 7.2; Monocytes # (A) 0.4 k/uL (0-1.0); Monocytes % (A) 5 %; Neutrophils # (A) 3.5 k/uL (1.3-7.7); Neutrophils % (A) 50 %; Platelet Count 341 k/uL (150-450); RBC 4.03 m/uL (3.80-5.40); RDW 13.2 % (11.5-15.5)
[2018-06-20 07:59] LABS: ALT 18 U/L (9-52); AST 12 U/L (14-36); Albumin 3.4 g/dL (3.5-5.0); Alkaline Phosphatase 55 U/L (38-126); Anion Gap 8 mmol/L; Blood Urea Nitrogen 6 mg/dL (7-17); Calcium 9.3 mg/dL (8.4-10.2); Carbon Dioxide 32 mmol/L (22-30); Chloride 99 mmol/L (98-107); Glucose 85 mg/dL (74-99); Potassium 4.3 mmol/L (3.5-5.1); Sodium 139 mmol/L (137-145); Total Bilirubin 0.3 mg/dL (0.2-1.3)
[2018-06-20] MEDS: PANTOPRAZOLE 40 MG TABLET PO SCH ×2 (08:18→16:34)
[2018-06-20] MEDS: metroNIDAZOLE 500 MG TAB PO SCH ×2 (08:19→16:35)
[2018-06-20] MEDS: HEPARIN SODIUM,PORCINE 5,000 UNIT/ML 1 ML VIAL SQ SCH (08:19)
[2018-06-20] MEDS: SODIUM CHLORIDE 0.9% 1,000 ML IV SCH ×2 (09:03→16:12)
[2018-06-20] MEDS: IPRATROPIUM-ALBUTEROL 3 ML NEB INHALATION PRN ×3 (09:15→16:25)
[2018-06-20] MEDS: BUDESONIDE 0.5 MG/2 ML NEBU INHALATION SCH (09:15)
[2018-06-20 11:53] VITALS: BP 135/81
[2018-06-20] MEDS: HYDROmorphone 2 MG TAB PO PRN ×2 (12:46→16:34)
[2018-06-20 13:07] VITALS: PULSE 76
--- NOTE | 2018-06-20 13:25 | P.DS ---
Providers Date of admission: 06/17/18 15:27 Expected date of discharge: 06/20/18 Attending physician: Ning Lock Consults: 06/14/18 18:21 Consult Physician Stat Consulting Provider: Fausto Hardy Consult Reason/Comments: Colitis, gastritis Do you want consulting provider notified?: Yes 06/15/18 12:32 Consult Physician Routine Consulting Provider: Ashley Castillo Consult Reason/Comments: acute colitis Do you want consulting provider notified?: Yes 06/15/18 12:33 Consult Physician Routine Consulting Provider: Sukhwinder Macedo Consult Reason/Comments: Gastritis, colitis Do you want consulting provider notified?: Yes Primary care physician: Ning Lock [facility] Course: Discharge Diagnosis #1 abdominal pain with nausea vomiting and diarrhea there is evidence of acute gastritis and evidence of acute colitis on computed tomography scan patient was started on IV Protonix in the emergency room IV Zosyn and IV Flagyl were added Will check stools for C. diff. per GI services and sinuous supportive care and diet as tolerated. If patient continues to have loose stools will reorder stool study. Continue antibiotic treatment for 10-14 days. Per surgical services no plans for invasive procedure at this time. Advance to full liquid diet. Patient remains on Flagyl and Zosyn. Patient has been advanced to low fiber diet. Patient has been tolerating diet. E GI service and patient has been cleared for discharge. Patient will be discharged on Cipro and Flagyl for 10 days. Patient is to follow-up with GI services for outpatient EGD and colonoscopy in 4-6 weeks. #2 evidence of umbilical hernia with fat stranding related to mild inflammatory process surgical consultation requested. Per surgical services no plan for invasive procedure. Umbilical hernia without obstruction or gangrene. #3 underlying history of hypertension #4 underlying history of COPD #5 hypomagnesemia. Magnesium 1.5. Replace per protocol. resolved Hospital Course Lula Weathers is a 63-year-old female who presented to [facility] emergency room with a chief complaint of abdominal pain nausea, vomiting and diarrhea patient was evaluated in the emergency room, physical exam was positive for left lower quadrant tenderness, computed tomography scan of the abdomen and pelvis was done and revealed evidence of acute gastritis and acute colitis patient was admitted to medical floor, she was started on IV antibiotic Zosyn and Flagyl stools for C. diff was ordered, surgical consultation and GI consultation was requested. On 06/16/2018 patient was seen and examined she is feeling somewhat better she is alert and oriented 3 she is still complaining of abdominal pain and complaining of diarrhea, she has nausea but no vomiting, otherwise she denies any complaints there is no fever or chills no headache or dizziness no chest pain no shortness of breath no cough and no urinary symptoms On 06/17/2018 patient is alert and oriented 3. Patient is still complaining of some abdominal pain. Patient states her stools have decreased. Patient denies any vomiting. Patient stating she is still having some nausea. At this time patient denies chest pain or shortness of breath. Patient denies any urinary burning or frequency. On 06/18/2018 patient is alert and oriented 3. Patient still complaining of tenderness and abdominal pain. Patient states she has not been having any diarrhea. Patient is denying any vomiting or nausea at this time. Patient denies chest pain or shortness breath. Patient denies any urinary burning or frequency. Patient has been tolerating a full liquid diet On 06/19/2018 patient is alert and oriented 3. Patient states her is improving. Patient states she did have normal bowel movement last night. Patient has denied any nausea vomiting or diarrhea. Patient fiber diet per surgical and GI services. Patient denies chest pain or shortness of breath. Patient denies frequency. On 06/20/2018 patient is alert and oriented 3. And states she feels ready to go home. Patient states symptoms are much improved. Patient has not had nausea vomiting or diarrhea. Patient's abdominal pain has decreased. Discussed case with GI services. Patient has been cleared for discharge from GI services and planning to follow-up outpatient for EGD and colonoscopy in 4-6 weeks. Patient will be discharged on Cipro and Flagyl for 10 days. Patient is to follow-up closely with PCP and consulting providers. I performed an examination of the patient and discussed their management with the Nurse Practitioner. I have reviewed the Nurse Practitioner's notes and agree with the documented findings and plan of care Patient Condition at Discharge: Stable Plan - Discharge Summary Discharge Rx Participant: No New Discharge Prescriptions: New metroNIDAZOLE [Flagyl] 500 mg PO Q8HR 10 Days #30 tab Ciprofloxacin HCl [Cipro] 500 mg PO Q12H 10 Days #20 tab Continue Pramipexole [Mirapex] 0.5 mg PO HS Albuterol Inhaler [Ventolin Hfa Inhaler] 1 - 2 puff INHALATION RT-Q6H PRN PRN Reason: Shortness Of Breath Diltiazem Cd [Cardizem CD] 240 mg PO HS Cholecalciferol [Vitamin D3] 2,000 unit PO HS Omeprazole 20 mg PO BID Beclomethasone Dipropionate [Qvar 80 mcg] 2 puff INHALATION RT-BID Montelukast [Singulair] 10 mg PO HS #30 tab Ipratropium-Albuterol Nebulize [Duoneb 0.5 mg-3 mg/3 ml Soln] 3 ml INHALATION RT-QID PRN PRN Reason: Shortness Of Breath Budesonide [Pulmicort Flexhaler] 2 puff INHALATION RT-BID Ondansetron Odt [Zofran ODT] 4 mg PO Q8HR PRN #20 tab PRN Reason: Nausea HYDROcodone/APAP 10-325MG [Russell 10-325] 1 tab PO Q6H PRN #12 tab PRN Reason: Pain Discharge Medication List Pramipexole [Mirapex] 0.5 mg PO HS 09/28/15 [History] Albuterol Inhaler [Ventolin Hfa Inhaler] 1 - 2 puff INHALATION RT-Q6H PRN [History] Cholecalciferol [Vitamin D3] 2,000 unit PO HS 02/02/16 [History] Diltiazem Cd [Cardizem CD] 240 mg PO HS 02/02/16 [History] Omeprazole 20 mg PO BID 02/02/16 [History] Beclomethasone Dipropionate [Qvar 80 mcg] 2 puff INHALATION RT-BID 11/14/16 [ History] Montelukast [Singulair] 10 mg PO HS #30 tab 02/12/17 [Rx] Budesonide [Pulmicort Flexhaler] 2 puff INHALATION RT-BID 05/31/18 [History] Ipratropium-Albuterol Nebulize [Duoneb 0.5 mg-3 mg/3 ml Soln] 3 ml INHALATION RT -QID PRN 05/31/18 [History] Ondansetron Odt [Zofran ODT] 4 mg PO Q8HR PRN #20 tab 05/31/18 [Rx] Ciprofloxacin HCl [Cipro] 500 mg PO Q12H 10 Days #20 tab 06/20/18 [Rx] HYDROcodone/APAP 10-325MG [Russell 10-325] 1 tab PO Q6H PRN #12 tab 06/20/18 [Rx] metroNIDAZOLE [Flagyl] 500 mg PO Q8HR 10 Days #30 tab 06/20/18 [Rx] Follow up Appointment(s)/Referral(s): Ning Lock MD [Primary Care Provider] - 1-2 days Bruna Goldsmith MD [STAFF PHYSICIAN] - 1 Week Activity/Diet/Wound Care/Special Instructions: Diet low fiber Activity as tolerated Discharge Disposition: HOME SELF-CARE
[2018-06-20] MEDS: ONDANSETRON 4 MG/2 ML VIAL IVP PRN (14:50)
== END 2018-06-20 17:15 | disposition home or self-care (01) | DRG 392 ==
LOC: EC 15:05 → 1SOBS 18:07 → 3NMEDONC 06-15 13:20 → OBSVTOIN 06-17 15:27
PROVIDERS: ADMIT Internal Medicine; ATTEND Internal Medicine
DX: K52.9 Noninfective gastroenteritis and colitis, unspecified (principal); E83.42 Hypomagnesemia; F43.10 Post-traumatic stress disorder, unspecified; I11.0 Hypertensive heart disease with heart failure; I25.10 Atherosclerotic heart disease of native coronary artery without angina pectoris; I25.2 Old myocardial infarction; I34.1 Nonrheumatic mitral (valve) prolapse; I48.0 Paroxysmal atrial fibrillation; I50.9 Heart failure, unspecified; J44.9 Chronic obstructive pulmonary disease, unspecified; K21.9 Gastro-esophageal reflux disease without esophagitis; K29.00 Acute gastritis without bleeding; K42.9 Umbilical hernia without obstruction or gangrene; K58.9 Irritable bowel syndrome, unspecified; M19.90 Unspecified osteoarthritis, unspecified site; M41.9 Scoliosis, unspecified; M81.0 Age-related osteoporosis without current pathological fracture; Z82.49 Family history of ischemic heart disease and other diseases of the circulatory system; Z85.41 Personal history of malignant neoplasm of cervix uteri; Z87.891 Personal history of nicotine dependence; Z79.51 Long term (current) use of inhaled steroids; Z79.899 Other long term (current) drug therapy; Z88.8 Allergy status to other drugs, medicaments and biological substances; Z90.49 Acquired absence of other specified parts of digestive tract
CPT/HCPCS: 36415; 74177; 80053; 81003; 82150; 83605; 83690; 83735; 84132; 85025; 85610; 85730; 87040; 87324; 94640; 96361; 96374; 96375; 99285

== ENCOUNTER 2018-07-03 17:33 | Inpatient (IN) | payer OTHER ==
[2018-07-03] MEDS ORDERED: KETOROLAC 30 MG/ML 1 ML VIAL IVP STA (18:14)
[2018-07-03] MEDS ORDERED: PANTOPRAZOLE 40 MG/10 ML VIAL IVP STA (18:14)
[2018-07-03] MEDS ORDERED: MORPHINE SULFATE 4 MG/ML SYRINGE IV STA (18:14)
[2018-07-03] MEDS ORDERED: SODIUM CHLORIDE 0.9% 1,000 ML IV STA ×2 (18:14)
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
[2018-07-03 18:37] LABS: Basophils % (A) 0 %; Eosinophils % (A) 0 %; HCT 39.1 % (34.0-46.0); HGB 12.7 gm/dL (11.4-16.0); Lymphocytes # (A) 1.1 k/uL (1.0-4.8); Lymphocytes % (A) 6 %; MCH 30.1 pg (25.0-35.0); MCHC 32.6 g/dL (31.0-37.0); MCV 92.1 fL (80.0-100.0); Mean Platelet Volume 7.7; Monocytes % (A) 6 %; Neutrophils # (A) 15.1 k/uL (1.3-7.7); Neutrophils % (A) 85 %; Platelet Count 228 k/uL (150-450); RBC 4.24 m/uL (3.80-5.40); RDW 14.1 % (11.5-15.5); WBC 17.8 k/uL (3.8-10.6)
[2018-07-03 18:46] LABS: INR 1.2 (<1.2); Partial Thromboplastin Time 28.7 sec (22.0-30.0); Prothrombin Time 11.1 sec (9.0-12.0)
[2018-07-03 18:49] LABS: ALT 19 U/L (9-52); AST 18 U/L (14-36); Albumin 3.8 g/dL (3.5-5.0); Alkaline Phosphatase 63 U/L (38-126); Amylase 33 U/L (30-110); Anion Gap 11 mmol/L; Blood Urea Nitrogen 14 mg/dL (7-17); Calcium 9.4 mg/dL (8.4-10.2); Carbon Dioxide 27 mmol/L (22-30); Chloride 97 mmol/L (98-107); Glucose 86 mg/dL (74-99); Lipase <10 U/L (23-300); Potassium 3.8 mmol/L (3.5-5.1); Sodium 135 mmol/L (137-145); Total Bilirubin 0.7 mg/dL (0.2-1.3); Total Protein 6.7 g/dL (6.3-8.2)
--- NOTE | 2018-07-03 19:49 | CT ---
EXAMINATION TYPE: CT abdomen pelvis w con DATE OF EXAM: 07/03/2018 COMPARISON: June 14, 2018 HISTORY: Abdominal pain with diarrhea. CT DLP: 517.9 mGycm Automated exposure control for dose reduction was used. TECHNIQUE: Helical acquisition of images was performed from the lung bases through the pelvis. CONTRAST: Performed without Oral Contrast and with IV Contrast, patient injected with 100 mL of Isovue 300. FINDINGS: Lung bases are clear of consolidation. Heart size is normal. There is no pericardial effusion. There is no pleural effusion. Liver shows no focal defect. There is umbilical hernia that shows minimal fat stranding. Gallbladder appears absent. The bile ducts are slightly prominent. Common bile duct is 12 mm. Spleen appears norm al. There is no evidence of a pancreatic mass. There is no adrenal mass. Kidneys show satisfactory co ntrast opacification. There is no hydronephrosis. There is no retroperitoneal adenopathy. Abdominal a mp is atheromatous. Bladder distends smoothly. There is 3 cm cyst in the left adnexal region. There is no inguinal hernia . There is a long segment of sigmoid colon with variable wall thickening. Uterus is anteverted. I see no bony destructive process. There is thoracolumbar levoscoliosis. There is L5-S1 spondylotic change . There is no compression fracture. I see no mesenteric edema. IMPRESSION: THERE IS WALL THICKENING OF THE PROXIMAL SIGMOID COLON SUGGESTIVE OF COLITIS THAT IS WORSE THAN LAST CT SCAN. THERE IS MINIMAL FAT STRANDING AT THE UMBILICAL HERNIA THAT COULD RELATE TO FOCAL CELLULITIS AND APPEARS UNCHANGED. CYST ON THE LEFT OVARY. THERE IS A MILDLY DILATED BILIARY TREE THAT IS SLIGHTLY INCREASED COMPARED TO LAST EXAM.
[2018-07-03 19:55] LABS: Appearance,Urine Clear (Clear); Bilirubin,Urine Negative (Negative); Blood,Urine Negative (Negative); Color,Urine Yellow; Glucose,Urine (UA) Negative (Negative); Ketones,Urine 2+ (Negative); Leukocyte Esterase,Urine Negative (Negative); Nitrite,Urine Negative (Negative); Protein,Urine Trace (Negative); Urobilinogen,Urine <2.0 mg/dL (<2.0)
[2018-07-03 20:10] LABS: Specific Gravity,Urine >1.050 (1.001-1.035)
[2018-07-03] MEDS ORDERED: metroNIDAZOLE-NS PMX 500 MG in SALINE 1 100ML.BAG IVPB STA (20:31)
[2018-07-03] MEDS ORDERED: IPRATROPIUM-ALBUTEROL 3 ML NEB INHALATION STA (20:40)
[2018-07-03] MEDS ORDERED: NALOXONE 0.4 MG/ML 1 ML VIAL IV PRN (20:57)
[2018-07-03] MEDS ORDERED: MORPHINE SULFATE 4 MG/ML SYRINGE IV PRN (20:57)
[2018-07-03] MEDS ORDERED: IBUPROFEN 400 MG TAB PO PRN (20:57)
[2018-07-03] MEDS ORDERED: NON-FORMULARY DRUG (Omeprazole [Omeprazole] 20 MG) PO SCH (21:00)
[2018-07-03] MEDS: HYDROmorphone 1 MG/ML 1 ML SYRINGE IVP PRN (21:35)
[2018-07-03] MEDS: MELATONIN 5 MG TABLET PO SCH (22:45)
[2018-07-03] MEDS: PRAMIPEXOLE 0.5 MG TAB PO SCH (22:45)
[2018-07-03] MEDS: HYDROcodone/APAP 10-325MG 1 EACH TAB PO PRN (22:45)
[2018-07-03] MEDS: MONTELUKAST 10 MG TAB PO SCH (22:46)
[2018-07-03] MEDS: DILTIAZEM CD 240 MG CAP.ER.24H PO SCH (22:46)
[2018-07-03] MEDS: CHOLECALCIFEROL 1,000 UNIT TAB PO SCH (22:46)
[2018-07-03] MEDS: SODIUM CHLORIDE 0.9% 1,000 ML IV SCH (22:47)
[2018-07-04] MEDS: HYDROmorphone 1 MG/ML 1 ML SYRINGE IVP PRN ×7 (00:38→20:13)
[2018-07-04] MEDS: ACETAMINOPHEN TAB 325 MG TAB PO PRN ×3 (00:39→16:18)
[2018-07-04] MEDS: ONDANSETRON 4 MG/2 ML VIAL IVP PRN ×2 (03:24→14:31)
[2018-07-04] MEDS: SODIUM CHLORIDE 0.9% 1,000 ML IV SCH ×2 (06:27→16:28)
[2018-07-04] MEDS: VANCOMYCIN ORAL SOLUTION 250 MG/5 ML BOTTLE PO SCH ×3 (06:52→17:42)
[2018-07-04] MEDS: CHERRY FLAVOR 60 ML BOTTLE PO SCH ×3 (06:52→17:42)
[2018-07-04] MEDS: FLUTICASONE 110 MCG INHALER INHALATION SCH ×2 (07:17→19:31)
[2018-07-04] MEDS: IPRATROPIUM-ALBUTEROL 3 ML NEB INHALATION PRN ×4 (07:18→19:31)
[2018-07-04] MEDS ORDERED: NON-FORMULARY DRUG (Budesonide [Pulmicort Flexhaler] 2 PUFF) INHALATION SCH (08:00)
[2018-07-04] MEDS: PANTOPRAZOLE 40 MG/10 ML VIAL IV SCH (08:08)
[2018-07-04 10:28] LABS: Basophils % (A) 0 %; Eosinophils % (A) 0 %; HCT 36.2 % (34.0-46.0); HGB 11.8 gm/dL (11.4-16.0); Hypochromasia Slight; Lymphocytes # (A) 1.2 k/uL (1.0-4.8); Lymphocytes % (A) 8 %; MCH 30.7 pg (25.0-35.0); MCHC 32.5 g/dL (31.0-37.0); MCV 94.5 fL (80.0-100.0); Monocytes # (A) 0.6 k/uL (0-1.0); Monocytes % (A) 4 %; Neutrophils # (A) 12.7 k/uL (1.3-7.7); Neutrophils % (A) 85 %; Platelet Count 190 k/uL (150-450); RBC 3.84 m/uL (3.80-5.40); RDW 14.1 % (11.5-15.5); WBC 14.9 k/uL (3.8-10.6)
[2018-07-04] MEDS: ONDANSETRON ODT 4 MG TAB PO PRN ×2 (10:28→23:03)
[2018-07-04] MEDS: HYDROcodone/APAP 10-325MG 1 EACH TAB PO PRN ×3 (10:28→23:03)
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
[2018-07-04 10:46] LABS: ALT 21 U/L (9-52); AST 16 U/L (14-36); Albumin 3.2 g/dL (3.5-5.0); Alkaline Phosphatase 60 U/L (38-126); Anion Gap 13 mmol/L; Blood Urea Nitrogen 11 mg/dL (7-17); Calcium 8.8 mg/dL (8.4-10.2); Carbon Dioxide 21 mmol/L (22-30); Chloride 103 mmol/L (98-107); Potassium 3.7 mmol/L (3.5-5.1); Sodium 137 mmol/L (137-145); Total Bilirubin 0.5 mg/dL (0.2-1.3); Total Protein 5.8 g/dL (6.3-8.2)
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
[2018-07-04 11:06] LABS: Glucose 43 mg/dL (74-99)
[2018-07-04 11:17] LABS: Glucose,Whole Blood 55 mg/dL (75-99)
[2018-07-04 11:34] LABS: Glucose,Whole Blood 107 mg/dL (75-99)
[2018-07-04] MEDS: metroNIDAZOLE-NS PMX 500 MG in SALINE 1 100ML.BAG IVPB SCH ×2 (16:04→23:06)
[2018-07-04 17:11] LABS: Glucose,Whole Blood 91 mg/dL (75-99)
[2018-07-04] MEDS: PRAMIPEXOLE 0.5 MG TAB PO SCH (20:12)
[2018-07-04] MEDS: CHOLECALCIFEROL 1,000 UNIT TAB PO SCH (20:12)
[2018-07-04] MEDS: MONTELUKAST 10 MG TAB PO SCH (20:12)
[2018-07-04] MEDS: MELATONIN 5 MG TABLET PO SCH (20:12)
[2018-07-04] MEDS: DILTIAZEM CD 240 MG CAP.ER.24H PO SCH (20:12)
[2018-07-04 20:51] LABS: Glucose,Whole Blood 78 mg/dL (75-99)
[2018-07-05] MEDS: HYDROmorphone 1 MG/ML 1 ML SYRINGE IVP PRN ×7 (00:03→22:32)
[2018-07-05] MEDS: CHERRY FLAVOR 60 ML BOTTLE PO SCH ×4 (00:04→21:16)
[2018-07-05] MEDS: VANCOMYCIN ORAL SOLUTION 250 MG/5 ML BOTTLE PO SCH ×4 (00:04→21:15)
[2018-07-05] MEDS: SODIUM CHLORIDE 0.9% 1,000 ML IV SCH ×2 (03:12→15:46)
[2018-07-05] MEDS: HYDROcodone/APAP 10-325MG 1 EACH TAB PO PRN ×4 (05:10→23:28)
[2018-07-05] MEDS: IPRATROPIUM-ALBUTEROL 3 ML NEB INHALATION PRN ×5 (05:38→23:43)
[2018-07-05 07:22] LABS: Glucose,Whole Blood 81 mg/dL (75-99)
[2018-07-05] MEDS: PANTOPRAZOLE 40 MG/10 ML VIAL IV SCH (07:56)
[2018-07-05] MEDS: FLUTICASONE 110 MCG INHALER INHALATION SCH (08:33)
[2018-07-05 09:00] LABS: Basophils % (A) 0 %; Eosinophils # (A) 0.1 k/uL (0-0.7); Eosinophils % (A) 1 %; HCT 32.5 % (34.0-46.0); HGB 10.2 gm/dL (11.4-16.0); Lymphocytes # (A) 1.1 k/uL (1.0-4.8); Lymphocytes % (A) 12 %; MCH 29.2 pg (25.0-35.0); MCHC 31.4 g/dL (31.0-37.0); Mean Platelet Volume 7.8; Monocytes # (A) 0.5 k/uL (0-1.0); Monocytes % (A) 5 %; Neutrophils # (A) 7.8 k/uL (1.3-7.7); Neutrophils % (A) 80 %; Platelet Count 193 k/uL (150-450); RBC 3.49 m/uL (3.80-5.40); RDW 14.1 % (11.5-15.5); WBC 9.7 k/uL (3.8-10.6)
[2018-07-05] MEDS ORDERED: ENOXAPARIN 40 MG/0.4 ML SYRINGE SQ SCH (09:00)
[2018-07-05] MEDS: metroNIDAZOLE-NS PMX 500 MG in SALINE 1 100ML.BAG IVPB SCH ×2 (09:01→15:44)
[2018-07-05 09:10] LABS: ALT 23 U/L (9-52); AST 13 U/L (14-36); Albumin 2.6 g/dL (3.5-5.0); Alkaline Phosphatase 48 U/L (38-126); Anion Gap 6 mmol/L; Blood Urea Nitrogen 5 mg/dL (7-17); Calcium 8.1 mg/dL (8.4-10.2); Carbon Dioxide 25 mmol/L (22-30); Chloride 105 mmol/L (98-107); Glucose 67 mg/dL (74-99); Potassium 3.4 mmol/L (3.5-5.1); Sodium 136 mmol/L (137-145); Total Bilirubin 0.3 mg/dL (0.2-1.3)
[2018-07-05] MEDS ORDERED: Potassium Replacement Protocol 1 EACH MISC MISCELLANE PRN (09:30)
[2018-07-05] MEDS: POTASSIUM CHLORIDE ER 20 MEQ TAB.ER PO SCH ×2 (09:53→11:03)
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
--- NOTE | 2018-07-05 11:27 | P.PN ---
Subjective Progress Note Date: 07/05/18 This is a 63-year-old female patient who presented to the emergency room with complaints of abdominal pain. Patient was recently admitted in early June for colitis duodenitis patient was discharged at that time with 10 day oral antibiotics. Patient states during that time she still had mild abdominal pain. Patient states that she completed her antibiotics she then developed severe abdominal pain with nausea and vomiting. Past medical history includes atrial fibrillation, coronary artery disease, home O2, heart failure, COPD, GERD , hypertension, liver disease, myocardial infarction, mitral valve prolapse, osteoarthritis anxiety, depression and PTSD. Per patient Records patient is not on anticoagulation for her Atrial Fibrillation due to history of bleeding. Patient did have a positive C. diff stool sample. CT of abdomen and pelvis completed showing wall thickening of the proximal sigmoid colon suggestive colitis that is worse and last computed tomography scan. There is minimal fat stranding at the umbilical hernia could relate to focal cellulitis and appears unchanged. Cyst on the left ovary. There is mildly dilated busily treated slightly increased compared to last exam. EEG completed showing normal sinus rhythm. Nonspecific T-wave abnormality. Initial white blood cell elevated at 17.8. Patient also having low-grade temp at 100.8. Patient currently on Rocephin, Flagyl and oral Vanco. Surgical services have been consulted. At this time patient denies chest pain or shortness of breath. Patient is complaining of diffuse abdominal tenderness. Patient denies any urinary burning or frequency. On 07/05/2018 patient is currently resting in bed. This time patient denies chest pain or shortness of breath. Patient still complaining of some abdominal pain. Patient denies any urinary burning or frequency. Patient remains on IV Flagyl and oral Vanco. Physical therapy will be consulted due to increased weakness Objective - Vital Signs Vital signs: Vital Signs Temp 99.7 F H 07/05/18 06:00 Pulse 84 07/05/18 08:50 Resp 20 07/05/18 08:00 BP 128/71 07/05/18 06:00 Pulse Ox 96 07/05/18 06:00 Intake & Output 07/04/18 07/05/18 07/05/18 18:59 06:59 18:59 Intake Total 0 Output Total 3 Balance -3 Intake: Oral 0 Output: Urine/Stool Mix 3 Other: Voiding Method Bedside Commode Bedside Commode Bedside Commode # Voids 1 - Exam Head normocephalic Neck supple Lungs diminished bilaterally Heart regular rate and rhythm S1-S2, no rub or gallop Abdomen diffuse abdominal tenderness Extremities no edema Neuro alert and orientated to 3 - Labs CBC & Chem 7: 07/05/18 08:26 07/05/18 08:26 Labs: Abnormal Lab Results - Last 24 Hours (Table) 07/04/18 07/05/18 07/05/18 Range/Units 11:31 08:26 08:26 RBC 3.49 L (3.80-5.40) m/uL Hgb 10.2 L (11.4-16.0) gm/dL Hct 32.5 L (34.0-46.0) % Neutrophils # 7.8 H (1.3-7.7) k/uL Sodium 136 L (137-145) mmol/L Potassium 3.4 L (3.5-5.1) mmol/L BUN 5 L (7-17) mg/dL Creatinine 0.27 L (0.52-1.04) mg/dL Glucose 67 L (74-99) mg/dL POC Glucose (mg/dL) 107 H (75-99) mg/dL Calcium 8.1 L (8.4-10.2) mg/dL AST 13 L (14-36) U/L Total Protein 5.0 L (6.3-8.2) g/dL Albumin 2.6 L (3.5-5.0) g/dL Microbiology - Last 24 Hours (Table) 07/03/18 18:10 Blood Culture - Preliminary Blood No Growth after 24 hours 07/04/18 03:08 Stool Culture - Preliminary Stool Assessment and Plan Assessment: 1. Abdominal pain with nausea and vomiting related to C. diff colitis. CT of abdomen completed showing wall thickening of the proximal sigmoid colon suggestive of colitis that is worse in the computed tomography scan. There is minimal straightening at the umbilical correlate for cellulitis. Cyst on the left ovary. There is mildly dilated biliary tree that is slightly increased compared to last exam. Surgical services have been consulted. Patient also positive for C. diff. Patient currently nothing by mouth. maintained on Vanco and Flagyl. Per surgical services continue antibiotics no complaints for acute surgical intervention at this time. Per GI services continue current regime. patient started on clear liquid diet 2. History of proximal atrial fibrillation. According to medical records she is currently not on anticoagulation due to history of bleeding 3. History of COPD. Patient is home O2 dependent. Chest x-ray has been ordered 4. History of essential hypertension 5. History of chronic back pain 6. History of coronary artery disease 7. Left ovary cyst. Patient to follow-up closely with PCP DVT prophylaxis Lovenox. GI prophylaxis Protonix I performed an examination of the patient and discussed their management with the Nurse Practitioner. I have reviewed the Nurse Practitioner's notes and agree with the documented findings and plan of care
[2018-07-05 12:36] LABS: Glucose,Whole Blood 67 mg/dL (75-99)
[2018-07-05 12:49] LABS: Glucose,Whole Blood 75 mg/dL (75-99)
--- NOTE | 2018-07-05 13:14 | P.PN ---
Subjective Progress Note Date: 07/05/18 No fevers overnight, patient is still complaining of abdominal pain Objective - Vital Signs Vital signs: Vital Signs Temp 99.7 F H 07/05/18 06:00 Pulse 84 07/05/18 08:50 Resp 20 07/05/18 08:00 BP 128/71 07/05/18 06:00 Pulse Ox 96 07/05/18 06:00 Intake & Output 07/04/18 07/05/18 07/05/18 18:59 06:59 18:59 Intake Total 0 Output Total 3 Balance -3 Intake: Oral 0 Output: Urine/Stool Mix 3 Other: Voiding Method Bedside Commode Bedside Commode Bedside Commode # Voids 1 - Constitutional General appearance: Present: cooperative - Respiratory Details: nonlabored - Cardiovascular Rhythm: regular - Gastrointestinal Gastrointestinal Comment(s): Soft, mild distention, TTP diffusely - Labs CBC & Chem 7: 07/05/18 08:26 07/05/18 08:26 Labs: Abnormal Lab Results - Last 24 Hours (Table) 07/05/18 07/05/18 07/05/18 Range/Units 08:26 08:26 12:28 RBC 3.49 L (3.80-5.40) m/uL Hgb 10.2 L (11.4-16.0) gm/dL Hct 32.5 L (34.0-46.0) % Neutrophils # 7.8 H (1.3-7.7) k/uL Sodium 136 L (137-145) mmol/L Potassium 3.4 L (3.5-5.1) mmol/L BUN 5 L (7-17) mg/dL Creatinine 0.27 L (0.52-1.04) mg/dL Glucose 67 L (74-99) mg/dL POC Glucose (mg/dL) 67 L (75-99) mg/dL Calcium 8.1 L (8.4-10.2) mg/dL AST 13 L (14-36) U/L Total Protein 5.0 L (6.3-8.2) g/dL Albumin 2.6 L (3.5-5.0) g/dL Microbiology - Last 24 Hours (Table) 07/03/18 18:10 Blood Culture - Preliminary Blood No Growth after 24 hours 07/04/18 03:08 Stool Culture - Preliminary Stool Assessment and Plan Assessment: C. diff colitis Plan: Patient is still diffusely tender, recommend NPO until physical exam improves. Cont. Flagyl and PO vanco. No plans for surgical intervention at this time.
--- NOTE | 2018-07-05 14:35 | XR ---
EXAMINATION TYPE: XR chest 2V DATE OF EXAM: 07/05/2018 COMPARISON: Prior chest x-ray 03/29/[address] 03/18/2018. HISTORY: Shortness of breath TECHNIQUE: Frontal and lateral views of the chest are obtained. FINDINGS: The cardiac silhouette size is stable. Prominent lung volumes with flattening the hemidiap hragms compatible with underlying COPD. Bandlike area of increased attenuation at the right lung base is noted, there is blunting the right costophrenic angle. There is underlying scoliotic curvature sp ine. The osseous structures are intact. Pulmonary artery may be prominent, consider pulmonary artery hypertension. IMPRESSION: Right lower lobe atelectasis versus pneumonia and associated effusion. Emphysema. Additi onal findings above.
[2018-07-05 17:19] LABS: Glucose,Whole Blood 66 mg/dL (75-99)
[2018-07-05 17:33] LABS: Glucose,Whole Blood 73 mg/dL (75-99)
[2018-07-05] MEDS: DEXTROSE 5%-0.9% NACL 1,000 ML IV SCH (18:16)
[2018-07-05] MEDS: BUDESONIDE 0.5 MG/2 ML NEBU INHALATION SCH (18:57)
[2018-07-05] MEDS ORDERED: POTASSIUM CHLORIDE ER 20 MEQ TAB.ER PO SCH (19:00)
[2018-07-05 20:55] LABS: Glucose,Whole Blood 67 mg/dL (75-99)
[2018-07-05] MEDS: MELATONIN 5 MG TABLET PO SCH (21:18)
[2018-07-05] MEDS: PRAMIPEXOLE 0.5 MG TAB PO SCH (21:18)
[2018-07-05] MEDS: DILTIAZEM CD 240 MG CAP.ER.24H PO SCH (21:18)
[2018-07-05] MEDS: CHOLECALCIFEROL 1,000 UNIT TAB PO SCH (21:18)
[2018-07-05] MEDS: MONTELUKAST 10 MG TAB PO SCH (21:18)
[2018-07-05] MEDS: HEPARIN SODIUM,PORCINE 5,000 UNIT/ML 1 ML VIAL SQ SCH (21:19)
--- NOTE | 2018-07-05 21:37 | CONS ---
CONSULTATION Lula Weathers is a 63-year-old female who presented to the ER with increasing abdominal pain. She had recently been admitted for colitis and duodenitis and had been discharged on oral antibiotics. She also had been having shortness of breath with some occasional wheezing. She was seen in the ER and admitted for further evaluation. She subsequently had a lab work done which showed evidence of her being positive for C difficile toxin. She was seen by surgery and GI and is on oral vancomycin as well as IV Flagyl at this time. She continues to have some shortness of breath. PAST MEDICAL HISTORY: Positive for asthma with COPD, history of coronary artery disease, atrial fibrillation, mitral valve prolapse. Previous myocardial infarction. Gastroesophageal reflux disease, hypertension. SOCIAL HISTORY: The patient used to smoke a pack of cigarettes per day. She quit smoking in 2013. She uses medical marijuana in form of edibles. FAMILY HISTORY: Positive for cancer and TX in her mother, TX and pneumonia in her father. MEDICATIONS: Prior to admission were Mirapex, Zofran, omeprazole, Singulair, melatonin, DuoNeb, Axis, Cardizem CD, vitamin D3, Pulmicort, QVAR, and albuterol. REVIEW OF SYSTEMS: Noncontributory. ALLERGIES: THE PATIENT IS ALLERGIC TO SULFAMETHOXAZOLE, CIPROFLOXACIN, AND TRICYCLIC COMPOUNDS. PHYSICAL EXAMINATION: Blood pressure 118/59, respiratory rate 18, pulse rate of 70, temperature 98.3, O2 saturation on 2 L by nasal cannula is 97%. HEENT reveals pupils are equal. Chest reveals prolonged expiration. Wheeze only on forced expiration. Cardiovascular system is S1, S2. ABDOMEN: Soft, mildly tender. There is no edema. LABORATORY DATA: White count is 9.7, but when she came in on the , it was 17.8, hemoglobin is 10.2, the glucose was 67, albumin is 2.6. C diff toxin is positive and the chest x-ray done this morning shows atelectatic changes versus pneumonia in the right lower zone with emphysematous changes. IMPRESSION: At this time: 1. C difficile colitis. 2. Chronic obstructive pulmonary disease with asthma. 3. Possible aspiration-type pneumonia. 4. Hypoglycemia. 5. Protein calorie malnutrition. At this point in time, would keep the patient on oral vancomycin as well as IV Flagyl. Flagyl would cover for anaerobic bacteria in case there is a right lower zone aspiration type pneumonia. Keep her on IV fluids. Keep her on bronchodilators. Add aerosolized steroids to her regimen. Would continue montelukast as well. Depending on how she does we should make further changes to her care. She was counseled regarding her condition and this approach and has a fair understanding of recommendations. MMODL / IJN: [id number] /
[2018-07-05 21:46] LABS: Glucose,Whole Blood 102 mg/dL (75-99)
[2018-07-06] MEDS: metroNIDAZOLE-NS PMX 500 MG in SALINE 1 100ML.BAG IVPB SCH ×3 (00:41→16:06)
[2018-07-06] MEDS: VANCOMYCIN ORAL SOLUTION 250 MG/5 ML BOTTLE PO SCH ×4 (01:33→20:44)
[2018-07-06] MEDS: CHERRY FLAVOR 60 ML BOTTLE PO SCH ×4 (01:33→20:44)
[2018-07-06] MEDS: HYDROmorphone 1 MG/ML 1 ML SYRINGE IVP PRN ×6 (01:33→21:55)
[2018-07-06 02:43] LABS: Hemoglobin A1C 5.1 % (4.0-6.0)
[2018-07-06 04:18] LABS: Glucose,Whole Blood 92 mg/dL (75-99)
[2018-07-06] MEDS: IPRATROPIUM-ALBUTEROL 3 ML NEB INHALATION PRN ×6 (05:05→23:35)
[2018-07-06] MEDS: HYDROcodone/APAP 10-325MG 1 EACH TAB PO PRN ×4 (05:28→23:59)
[2018-07-06] MEDS: DEXTROSE 5%-0.9% NACL 1,000 ML IV SCH ×2 (05:41→09:20)
[2018-07-06 07:20] LABS: Glucose,Whole Blood 110 mg/dL (75-99)
[2018-07-06] MEDS: BUDESONIDE 0.5 MG/2 ML NEBU INHALATION SCH ×2 (08:30→20:05)
[2018-07-06] MEDS: HEPARIN SODIUM,PORCINE 5,000 UNIT/ML 1 ML VIAL SQ SCH ×3 (08:37→20:46)
[2018-07-06] MEDS: PANTOPRAZOLE 40 MG/10 ML VIAL IV SCH (09:20)
[2018-07-06 10:08] LABS: Basophils % (A) 0 %; Eosinophils # (A) 0.2 k/uL (0-0.7); Eosinophils % (A) 4 %; HCT 35.2 % (34.0-46.0); HGB 11.4 gm/dL (11.4-16.0); Hypochromasia Slight; Lymphocytes # (A) 1.2 k/uL (1.0-4.8); Lymphocytes % (A) 21 %; MCH 30.3 pg (25.0-35.0); MCHC 32.4 g/dL (31.0-37.0); MCV 93.4 fL (80.0-100.0); Mean Platelet Volume 7.6; Monocytes # (A) 0.4 k/uL (0-1.0); Monocytes % (A) 6 %; Neutrophils # (A) 3.8 k/uL (1.3-7.7); Neutrophils % (A) 65 %; Platelet Count 229 k/uL (150-450); RBC 3.77 m/uL (3.80-5.40); WBC 5.9 k/uL (3.8-10.6)
[2018-07-06 10:37] LABS: ALT 23 U/L (9-52); AST 14 U/L (14-36); Albumin 2.9 g/dL (3.5-5.0); Alkaline Phosphatase 48 U/L (38-126); Anion Gap 5 mmol/L; Blood Urea Nitrogen <2 mg/dL (7-17); Calcium 8.4 mg/dL (8.4-10.2); Carbon Dioxide 29 mmol/L (22-30); Chloride 103 mmol/L (98-107); Glucose 100 mg/dL (74-99); Magnesium 1.6 mg/dL (1.6-2.3); Potassium 3.4 mmol/L (3.5-5.1); Sodium 137 mmol/L (137-145); Total Bilirubin 0.3 mg/dL (0.2-1.3); Total Protein 5.6 g/dL (6.3-8.2)
--- NOTE | 2018-07-06 10:44 | PN ---
PROGRESS NOTE She was seen again on 07/06/2018. She is less short of breath. She has less diarrhea. She is afebrile and is doing better overall. PHYSICAL EXAMINATION: On physical examination, vitals are stable. She is afebrile. Her chest is clear. Cardiovascular system reveals an S1, S2. Abdomen is soft. There is no edema, IMPRESSION AT THIS TIME: 1. Clostridium difficile colitis. 2. Severe asthma with chronic obstructive pulmonary disease with recent exacerbation. 3. Medical debility and malnourished state. At this point in time, increase her activity level. Continue on bronchodilator, aerosolized steroids, leukotriene receptor antagonist. Depending on how she does, we shall make further changes to her care. She was counseled on her condition and this approach and has a fair understanding of recommendations. MMODL / IJN: [id number] /
[2018-07-06 12:02] LABS: Glucose,Whole Blood 107 mg/dL (75-99)
[2018-07-06] MEDS ORDERED: Magnesium Replacement Protocol 1 EACH MISC MISCELLANE PRN (12:07)
[2018-07-06] MEDS: MAGNESIUM SULFATE-D5W PMX 1 GM in DEXTROSE/WATER 1 100ML.BAG IVPB SCH ×2 (12:55→14:50)
[2018-07-06] MEDS: POTASSIUM CHLORIDE ER 20 MEQ TAB.ER PO SCH ×2 (12:55→14:50)
--- NOTE | 2018-07-06 13:59 | P.PN ---
Subjective Progress Note Date: 07/06/18 This is a 63-year-old female patient who presented to the emergency room with complaints of abdominal pain. Patient was recently admitted in early June for colitis duodenitis patient was discharged at that time with 10 day oral antibiotics. Patient states during that time she still had mild abdominal pain. Patient states that she completed her antibiotics she then developed severe abdominal pain with nausea and vomiting. Past medical history includes atrial fibrillation, coronary artery disease, home O2, heart failure, COPD, GERD , hypertension, liver disease, myocardial infarction, mitral valve prolapse, osteoarthritis anxiety, depression and PTSD. Per patient Records patient is not on anticoagulation for her Atrial Fibrillation due to history of bleeding. Patient did have a positive C. diff stool sample. CT of abdomen and pelvis completed showing wall thickening of the proximal sigmoid colon suggestive colitis that is worse and last computed tomography scan. There is minimal fat stranding at the umbilical hernia could relate to focal cellulitis and appears unchanged. Cyst on the left ovary. There is mildly dilated busily treated slightly increased compared to last exam. EEG completed showing normal sinus rhythm. Nonspecific T-wave abnormality. Initial white blood cell elevated at 17.8. Patient also having low-grade temp at 100.8. Patient currently on Rocephin, Flagyl and oral Vanco. Surgical services have been consulted. At this time patient denies chest pain or shortness of breath. Patient is complaining of diffuse abdominal tenderness. Patient denies any urinary burning or frequency. On 07/05/2018 patient is currently resting in bed. This time patient denies chest pain or shortness of breath. Patient still complaining of some abdominal pain. Patient denies any urinary burning or frequency. Patient remains on IV Flagyl and oral Vanco. Physical therapy will be consulted due to increased weakness On 07/06/2018 patient is resting comfortably. She denies chest pain or shortness of breath. She is still complaining of abdominal pain. Patient denies any urinary burning or frequency. Patient remains on IV Flagyl and oral Vanco. Surgery is following patient is still nothing by mouth Objective - Vital Signs Vital signs: Vital Signs Temp 97.3 F L 07/06/18 07:00 Pulse 81 07/06/18 12:26 Resp 18 07/06/18 08:00 BP 114/63 07/06/18 07:00 Pulse Ox 99 07/06/18 08:30 Intake & Output 07/05/18 07/06/18 07/06/18 18:59 06:59 18:59 Intake Total 1200 Balance 1200 Weight 56.245 kg Intake: Intake, IV Titration 1200 Amount Dextrose 5%-0.9% NaCl 1, 1000 000 ml @ 100 mls/hr IV . Q10H ROXY Rx#:[id number] metroNIDAZOLE-NS PMX 500 200 mg In Saline 1 100ml.bag @ 100 mls/hr IVPB Q8HR ROXY Rx#:[id number] Oral 0 Other: Voiding Method Bedside Commode Bedside Commode Bedside Commode # Voids 3 - Exam Head normocephalic and atraumatic Neck supple, no JVD no goiter no adenopathy Lungs diminished bilaterally, no crackles no wheezing Heart regular rate and rhythm S1-S2, no rub or gallop Abdomen diffuse abdominal tenderness Extremities no edema, no cyanosis or clubbing Neuro alert and orientated to 3 no gross deficit - Labs CBC & Chem 7: 07/06/18 09:37 07/06/18 09:37 Labs: Abnormal Lab Results - Last 24 Hours (Table) 07/05/18 07/05/18 07/05/18 Range/Units 17:00 17:30 20:54 RBC (3.80-5.40) m/uL Potassium (3.5-5.1) mmol/L BUN (7-17) mg/dL Creatinine (0.52-1.04) mg/dL Glucose (74-99) mg/dL POC Glucose (mg/dL) 66 L 73 L 67 L (75-99) mg/dL Total Protein (6.3-8.2) g/dL Albumin (3.5-5.0) g/dL 07/05/18 07/06/18 07/06/18 Range/Units 21:45 07:17 09:37 RBC 3.77 L (3.80-5.40) m/uL Potassium (3.5-5.1) mmol/L BUN (7-17) mg/dL Creatinine (0.52-1.04) mg/dL Glucose (74-99) mg/dL POC Glucose (mg/dL) 102 H 110 H (75-99) mg/dL Total Protein (6.3-8.2) g/dL Albumin (3.5-5.0) g/dL 07/06/18 07/06/18 Range/Units 09:37 12:00 RBC (3.80-5.40) m/uL Potassium 3.4 L (3.5-5.1) mmol/L BUN <2 L (7-17) mg/dL Creatinine 0.24 L (0.52-1.04) mg/dL Glucose 100 H (74-99) mg/dL POC Glucose (mg/dL) 107 H (75-99) mg/dL Total Protein 5.6 L (6.3-8.2) g/dL Albumin 2.9 L (3.5-5.0) g/dL Microbiology - Last 24 Hours (Table) 07/04/18 03:08 Stool Culture - Preliminary Stool 07/03/18 18:10 Blood Culture - Preliminary Blood No Growth after 48 hours Assessment and Plan Plan: 1. Abdominal pain with nausea and vomiting related to C. diff colitis. CT of abdomen completed showing wall thickening of the proximal sigmoid colon suggestive of colitis that is worse in the computed tomography scan. There is minimal straightening at the umbilical correlate for cellulitis. Cyst on the left ovary. There is mildly dilated biliary tree that is slightly increased compared to last exam. Surgical services have been consulted. Patient also positive for C. diff. Patient currently nothing by mouth. maintained on Vanco and Flagyl. Per surgical services continue antibiotics no complaints for acute surgical intervention at this time. Per GI services continue current regime. patient started on clear liquid diet 2. History of proximal atrial fibrillation. According to medical records she is currently not on anticoagulation due to history of bleeding 3. History of COPD. Patient is home O2 dependent. Chest x-ray has been ordered 4. History of essential hypertension 5. History of chronic back pain 6. History of coronary artery disease 7. Left ovary cyst. Patient to follow-up closely with PCP DVT prophylaxis Lovenox. GI prophylaxis Protonix
--- NOTE | 2018-07-06 16:40 | P.PN ---
Subjective Progress Note Date: 07/06/18 No fevers overnight, patient is still complaining of abdominal pain however it is improved Objective - Vital Signs Vital signs: Vital Signs Temp 98.2 F 07/06/18 15:00 Pulse 75 07/06/18 16:00 Resp 16 07/06/18 16:00 BP 123/69 07/06/18 15:00 Pulse Ox 98 07/06/18 15:46 Intake & Output 07/05/18 07/06/18 07/06/18 18:59 06:59 18:59 Intake Total 1200 Balance 1200 Weight 56.245 kg Intake: Intake, IV Titration 1200 Amount Dextrose 5%-0.9% NaCl 1, 1000 000 ml @ 100 mls/hr IV . Q10H ROXY Rx#:[id number] metroNIDAZOLE-NS PMX 500 200 mg In Saline 1 100ml.bag @ 100 mls/hr IVPB Q8HR ROXY Rx#:[id number] Oral 0 Other: Voiding Method Bedside Commode Bedside Commode Bedside Commode # Voids 3 3 - Constitutional General appearance: Present: cooperative - Respiratory Details: nonlabored - Cardiovascular Rhythm: regular - Gastrointestinal Gastrointestinal Comment(s): s/nd/mild TTP - Psychiatric Psychiatric: Present: A&O x's 3 - Labs CBC & Chem 7: 07/06/18 09:37 07/06/18 15:24 Labs: Abnormal Lab Results - Last 24 Hours (Table) 07/05/18 07/05/18 07/05/18 Range/Units 17:00 17:30 20:54 RBC (3.80-5.40) m/uL Potassium (3.5-5.1) mmol/L BUN (7-17) mg/dL Creatinine (0.52-1.04) mg/dL Glucose (74-99) mg/dL POC Glucose (mg/dL) 66 L 73 L 67 L (75-99) mg/dL Total Protein (6.3-8.2) g/dL Albumin (3.5-5.0) g/dL 07/05/18 07/06/18 07/06/18 Range/Units 21:45 07:17 09:37 RBC 3.77 L (3.80-5.40) m/uL Potassium (3.5-5.1) mmol/L BUN (7-17) mg/dL Creatinine (0.52-1.04) mg/dL Glucose (74-99) mg/dL POC Glucose (mg/dL) 102 H 110 H (75-99) mg/dL Total Protein (6.3-8.2) g/dL Albumin (3.5-5.0) g/dL 07/06/18 07/06/18 Range/Units 09:37 12:00 RBC (3.80-5.40) m/uL Potassium 3.4 L (3.5-5.1) mmol/L BUN <2 L (7-17) mg/dL Creatinine 0.24 L (0.52-1.04) mg/dL Glucose 100 H (74-99) mg/dL POC Glucose (mg/dL) 107 H (75-99) mg/dL Total Protein 5.6 L (6.3-8.2) g/dL Albumin 2.9 L (3.5-5.0) g/dL Microbiology - Last 24 Hours (Table) 07/04/18 03:08 Stool Culture - Preliminary Stool 07/03/18 18:10 Blood Culture - Preliminary Blood No Growth after 48 hours Assessment and Plan Assessment: C. diff colitis Plan: May trail liquid diet today, Cont. Flagyl and PO vanco. No plans for surgical intervention at this time.
[2018-07-06] MEDS ORDERED: POTASSIUM CHLORIDE ER 20 MEQ TAB.ER PO SCH (17:00)
[2018-07-06 17:35] LABS: Glucose,Whole Blood 86 mg/dL (75-99)
[2018-07-06 20:40] LABS: Glucose,Whole Blood 113 mg/dL (75-99)
[2018-07-06] MEDS: MELATONIN 5 MG TABLET PO SCH (20:45)
[2018-07-06] MEDS: DILTIAZEM CD 240 MG CAP.ER.24H PO SCH (20:45)
[2018-07-06] MEDS: PRAMIPEXOLE 0.5 MG TAB PO SCH (20:45)
[2018-07-06] MEDS: MONTELUKAST 10 MG TAB PO SCH (20:45)
[2018-07-06] MEDS: CHOLECALCIFEROL 1,000 UNIT TAB PO SCH (20:45)
[2018-07-07] MEDS: metroNIDAZOLE-NS PMX 500 MG in SALINE 1 100ML.BAG IVPB SCH ×2 (00:01→08:16)
[2018-07-07] MEDS: CHERRY FLAVOR 60 ML BOTTLE PO SCH ×4 (00:03→17:00)
[2018-07-07] MEDS: DEXTROSE 5%-0.9% NACL 1,000 ML IV SCH ×3 (00:03→20:44)
[2018-07-07] MEDS: VANCOMYCIN ORAL SOLUTION 250 MG/5 ML BOTTLE PO SCH ×4 (00:03→17:01)
[2018-07-07] MEDS: HYDROmorphone 1 MG/ML 1 ML SYRINGE IVP PRN ×4 (02:40→20:38)
[2018-07-07 02:48] LABS: Glucose,Whole Blood 104 mg/dL (75-99)
[2018-07-07] MEDS: IPRATROPIUM-ALBUTEROL 3 ML NEB INHALATION PRN ×5 (04:26→19:58)
[2018-07-07] MEDS: HYDROcodone/APAP 10-325MG 1 EACH TAB PO PRN ×4 (06:24→22:28)
[2018-07-07 07:32] LABS: Glucose,Whole Blood 131 mg/dL (75-99)
[2018-07-07] MEDS: BUDESONIDE 0.5 MG/2 ML NEBU INHALATION SCH ×2 (08:14→19:58)
[2018-07-07] MEDS: HEPARIN SODIUM,PORCINE 5,000 UNIT/ML 1 ML VIAL SQ SCH ×3 (08:16→20:37)
[2018-07-07] MEDS: PANTOPRAZOLE 40 MG/10 ML VIAL IV SCH (08:16)
[2018-07-07 09:11] LABS: Basophils % (A) 1 %; Eosinophils # (A) 0.3 k/uL (0-0.7); Eosinophils % (A) 5 %; HCT 36.5 % (34.0-46.0); HGB 11.6 gm/dL (11.4-16.0); Hypochromasia Slight; Lymphocytes # (A) 1.3 k/uL (1.0-4.8); Lymphocytes % (A) 26 %; MCH 29.7 pg (25.0-35.0); MCHC 31.7 g/dL (31.0-37.0); MCV 93.6 fL (80.0-100.0); Mean Platelet Volume 7.3; Monocytes # (A) 0.4 k/uL (0-1.0); Monocytes % (A) 7 %; Neutrophils % (A) 58 %; Platelet Count 264 k/uL (150-450); RDW 14.1 % (11.5-15.5); WBC 5.1 k/uL (3.8-10.6)
[2018-07-07 09:21] LABS: ALT 23 U/L (9-52); AST 13 U/L (14-36); Albumin 3.3 g/dL (3.5-5.0); Alkaline Phosphatase 42 U/L (38-126); Anion Gap 8 mmol/L; Blood Urea Nitrogen <2 mg/dL (7-17); Calcium 8.8 mg/dL (8.4-10.2); Carbon Dioxide 30 mmol/L (22-30); Chloride 102 mmol/L (98-107); Glucose 96 mg/dL (74-99); Magnesium 1.7 mg/dL (1.6-2.3); Potassium 3.9 mmol/L (3.5-5.1); Sodium 140 mmol/L (137-145); Total Bilirubin 0.3 mg/dL (0.2-1.3); Total Protein 5.8 g/dL (6.3-8.2)
[2018-07-07 11:38] LABS: Glucose,Whole Blood 107 mg/dL (75-99)
--- NOTE | 2018-07-07 13:33 | P.PN ---
Subjective Progress Note Date: 07/07/18 This is a 63-year-old female patient who presented to the emergency room with complaints of abdominal pain. Patient was recently admitted in early June for colitis duodenitis patient was discharged at that time with 10 day oral antibiotics. Patient states during that time she still had mild abdominal pain. Patient states that she completed her antibiotics she then developed severe abdominal pain with nausea and vomiting. Past medical history includes atrial fibrillation, coronary artery disease, home O2, heart failure, COPD, GERD , hypertension, liver disease, myocardial infarction, mitral valve prolapse, osteoarthritis anxiety, depression and PTSD. Per patient Records patient is not on anticoagulation for her Atrial Fibrillation due to history of bleeding. Patient did have a positive C. diff stool sample. CT of abdomen and pelvis completed showing wall thickening of the proximal sigmoid colon suggestive colitis that is worse and last computed tomography scan. There is minimal fat stranding at the umbilical hernia could relate to focal cellulitis and appears unchanged. Cyst on the left ovary. There is mildly dilated busily treated slightly increased compared to last exam. EEG completed showing normal sinus rhythm. Nonspecific T-wave abnormality. Initial white blood cell elevated at 17.8. Patient also having low-grade temp at 100.8. Patient currently on Rocephin, Flagyl and oral Vanco. Surgical services have been consulted. At this time patient denies chest pain or shortness of breath. Patient is complaining of diffuse abdominal tenderness. Patient denies any urinary burning or frequency. On 07/05/2018 patient is currently resting in bed. This time patient denies chest pain or shortness of breath. Patient still complaining of some abdominal pain. Patient denies any urinary burning or frequency. Patient remains on IV Flagyl and oral Vanco. Physical therapy will be consulted due to increased weakness On 07/06/2018 patient is resting comfortably. She denies chest pain or shortness of breath. She is still complaining of abdominal pain. Patient denies any urinary burning or frequency. Patient remains on IV Flagyl and oral Vanco. Surgery is following patient is still nothing by mouth On 07/07/2018 patient was seen and examined on the medical floor she is alert and oriented 3 she is still complaining of abdominal pain otherwise she denies any complaints there is no chest pain no shortness of breath no cough no fever or chills no nausea or vomiting and no urinary symptoms Objective - Vital Signs Vital signs: Vital Signs Temp 97.8 F 07/07/18 07:00 Pulse 88 07/07/18 11:49 Resp 16 07/07/18 08:00 BP 129/71 07/07/18 07:00 Pulse Ox 96 07/07/18 08:18 Intake & Output 07/06/18 07/07/18 07/07/18 18:59 06:59 18:59 Weight 56.245 kg Other: Voiding Method Bedside Commode Bedside Commode Bedside Commode # Voids 3 2 - Exam Head normocephalic and atraumatic Neck supple, no JVD no goiter no adenopathy Lungs diminished bilaterally, no crackles no wheezing Heart regular rate and rhythm S1-S2, no rub or gallop Abdomen diffuse abdominal tenderness Extremities no edema, no cyanosis or clubbing Neuro alert and orientated to 3 no gross deficit - Labs CBC & Chem 7: 07/07/18 08:49 07/07/18 08:49 Labs: Abnormal Lab Results - Last 24 Hours (Table) 07/06/18 07/07/18 07/07/18 Range/Units 20:37 02:46 07:24 BUN (7-17) mg/dL Creatinine (0.52-1.04) mg/dL POC Glucose (mg/dL) 113 H 104 H 131 H (75-99) mg/dL AST (14-36) U/L Total Protein (6.3-8.2) g/dL Albumin (3.5-5.0) g/dL 07/07/18 07/07/18 Range/Units 08:49 11:33 BUN <2 L (7-17) mg/dL Creatinine 0.27 L (0.52-1.04) mg/dL POC Glucose (mg/dL) 107 H (75-99) mg/dL AST 13 L (14-36) U/L Total Protein 5.8 L (6.3-8.2) g/dL Albumin 3.3 L (3.5-5.0) g/dL Microbiology - Last 24 Hours (Table) 07/04/18 03:08 Stool Culture - Final Stool 07/03/18 18:10 Blood Culture - Preliminary Blood No Growth after 72 hours Assessment and Plan Plan: 1. Abdominal pain with nausea and vomiting related to C. diff colitis. CT of abdomen completed showing wall thickening of the proximal sigmoid colon suggestive of colitis that is worse in the computed tomography scan. There is minimal straightening at the umbilical correlate for cellulitis. Cyst on the left ovary. There is mildly dilated biliary tree that is slightly increased compared to last exam. Surgical services have been consulted. Patient also positive for C. diff. Patient currently nothing by mouth. maintained on Vanco and Flagyl. Per surgical services continue antibiotics no complaints for acute surgical intervention at this time. Per GI services continue current regime. patient started on clear liquid diet 2. History of proximal atrial fibrillation. According to medical records she is currently not on anticoagulation due to history of bleeding 3. History of COPD. Patient is home O2 dependent. Chest x-ray has been ordered 4. History of essential hypertension 5. History of chronic back pain 6. History of coronary artery disease 7. Left ovary cyst. Patient to follow-up closely with PCP DVT prophylaxis Lovenox. GI prophylaxis Protonix
--- NOTE | 2018-07-07 13:36 | PN ---
PROGRESS NOTE DATE OF SERVICE: July 07, 2018. She is at her baseline as far shortness of breath is concerned. She has no diarrhea. On physical examination, her vitals are stable. She is afebrile. Her chest is clear. Cardiovascular system is S1, S2. Abdomen is soft. There is no pedal edema. IMPRESSION: At this time is: C difficile colitis. Continue Flagyl. Discontinue Rocephin. Continue montelukast. Continue oral vancomycin. Change in her chest x-ray may be due to early aspiration versus atelectasis for which she is covered with Flagyl. MMODL / IJN: [id number] /
[2018-07-07 16:43] LABS: Glucose,Whole Blood 96 mg/dL (75-99)
[2018-07-07] MEDS: metroNIDAZOLE 500 MG TAB PO SCH (16:58)
--- NOTE | 2018-07-07 18:55 | P.PN ---
Subjective Progress Note Date: 07/07/18 No fevers overnight, no BM. No NV. Pain is improved Objective - Vital Signs Vital signs: Vital Signs Temp 98.0 F 07/07/18 15:00 Pulse 82 07/07/18 15:20 Resp 18 07/07/18 16:00 BP 115/63 07/07/18 15:00 Pulse Ox 96 07/07/18 15:00 Intake & Output 07/06/18 07/07/18 07/07/18 18:59 06:59 18:59 Weight 56.245 kg Other: Voiding Method Bedside Commode Bedside Commode Bedside Commode # Voids 3 2 3 - Constitutional General appearance: Present: cooperative - Respiratory Details: nonlabored - Cardiovascular Rhythm: regular - Gastrointestinal Gastrointestinal Comment(s): s/nt/nd - Psychiatric Psychiatric: Present: A&O x's 3 - Labs CBC & Chem 7: 07/07/18 08:49 07/07/18 08:49 Labs: Abnormal Lab Results - Last 24 Hours (Table) 07/06/18 07/07/18 07/07/18 Range/Units 20:37 02:46 07:24 BUN (7-17) mg/dL Creatinine (0.52-1.04) mg/dL POC Glucose (mg/dL) 113 H 104 H 131 H (75-99) mg/dL AST (14-36) U/L Total Protein (6.3-8.2) g/dL Albumin (3.5-5.0) g/dL 07/07/18 07/07/18 Range/Units 08:49 11:33 BUN <2 L (7-17) mg/dL Creatinine 0.27 L (0.52-1.04) mg/dL POC Glucose (mg/dL) 107 H (75-99) mg/dL AST 13 L (14-36) U/L Total Protein 5.8 L (6.3-8.2) g/dL Albumin 3.3 L (3.5-5.0) g/dL Microbiology - Last 24 Hours (Table) 07/04/18 03:08 Stool Culture - Final Stool 07/03/18 18:10 Blood Culture - Preliminary Blood No Growth after 72 hours Assessment and Plan Assessment: C. diff colitis Plan: Cont. ABX. Patients abdominal exam is improved today. Advance diet as tolerated however it was discussed with patient that should she begin experiencing more pain to let the nursing staff know and stop eating.
[2018-07-07] MEDS: CHOLECALCIFEROL 1,000 UNIT TAB PO SCH (20:35)
[2018-07-07] MEDS: DILTIAZEM CD 240 MG CAP.ER.24H PO SCH (20:35)
[2018-07-07] MEDS: MONTELUKAST 10 MG TAB PO SCH (20:36)
[2018-07-07] MEDS: MELATONIN 5 MG TABLET PO SCH (20:36)
[2018-07-07] MEDS: PRAMIPEXOLE 0.5 MG TAB PO SCH (20:37)
[2018-07-07 21:06] LABS: Glucose,Whole Blood 112 mg/dL (75-99)
[2018-07-08] MEDS: HYDROmorphone 1 MG/ML 1 ML SYRINGE IVP PRN ×8 (00:06→22:17)
[2018-07-08] MEDS: metroNIDAZOLE 500 MG TAB PO SCH ×3 (00:09→16:24)
[2018-07-08] MEDS: IPRATROPIUM-ALBUTEROL 3 ML NEB INHALATION PRN ×6 (00:17→21:21)
[2018-07-08] MEDS: VANCOMYCIN ORAL SOLUTION 250 MG/5 ML BOTTLE PO SCH ×4 (01:30→19:25)
[2018-07-08] MEDS: CHERRY FLAVOR 60 ML BOTTLE PO SCH ×4 (01:31→19:26)
[2018-07-08 02:33] LABS: Glucose,Whole Blood 107 mg/dL (75-99)
[2018-07-08] MEDS: HYDROcodone/APAP 10-325MG 1 EACH TAB PO PRN ×3 (04:40→17:10)
[2018-07-08] MEDS: DEXTROSE 5%-0.9% NACL 1,000 ML IV SCH ×2 (06:28→16:22)
[2018-07-08 07:16] LABS: Glucose,Whole Blood 111 mg/dL (75-99)
[2018-07-08] MEDS: HEPARIN SODIUM,PORCINE 5,000 UNIT/ML 1 ML VIAL SQ SCH ×2 (08:12→21:28)
[2018-07-08] MEDS: PANTOPRAZOLE 40 MG TABLET PO SCH (08:12)
[2018-07-08] MEDS: BUDESONIDE 0.5 MG/2 ML NEBU INHALATION SCH ×2 (08:45→21:21)
[2018-07-08 09:37] LABS: Basophils % (A) 0 %; Eosinophils # (A) 0.5 k/uL (0-0.7); Eosinophils % (A) 8 %; HCT 33.1 % (34.0-46.0); HGB 10.9 gm/dL (11.4-16.0); Lymphocytes # (A) 1.7 k/uL (1.0-4.8); Lymphocytes % (A) 30 %; MCH 30.2 pg (25.0-35.0); MCV 91.7 fL (80.0-100.0); Mean Platelet Volume 7.7; Monocytes # (A) 0.5 k/uL (0-1.0); Monocytes % (A) 8 %; Neutrophils % (A) 52 %; Platelet Count 278 k/uL (150-450); RBC 3.61 m/uL (3.80-5.40); RDW 14.3 % (11.5-15.5); WBC 5.8 k/uL (3.8-10.6)
[2018-07-08 09:52] LABS: ALT 19 U/L (9-52); AST 14 U/L (14-36); Albumin 3.1 g/dL (3.5-5.0); Alkaline Phosphatase 40 U/L (38-126); Anion Gap 9 mmol/L; Blood Urea Nitrogen <2 mg/dL (7-17); Calcium 8.9 mg/dL (8.4-10.2); Carbon Dioxide 30 mmol/L (22-30); Chloride 101 mmol/L (98-107); Glucose 90 mg/dL (74-99); Potassium 4.4 mmol/L (3.5-5.1); Sodium 140 mmol/L (137-145); Total Bilirubin 0.3 mg/dL (0.2-1.3); Total Protein 5.7 g/dL (6.3-8.2)
--- NOTE | 2018-07-08 10:08 | P.PN ---
Subjective Progress Note Date: 07/08/18 This is a 63-year-old female patient who presented to the emergency room with complaints of abdominal pain. Patient was recently admitted in early June for colitis duodenitis patient was discharged at that time with 10 day oral antibiotics. Patient states during that time she still had mild abdominal pain. Patient states that she completed her antibiotics she then developed severe abdominal pain with nausea and vomiting. Past medical history includes atrial fibrillation, coronary artery disease, home O2, heart failure, COPD, GERD , hypertension, liver disease, myocardial infarction, mitral valve prolapse, osteoarthritis anxiety, depression and PTSD. Per patient Records patient is not on anticoagulation for her Atrial Fibrillation due to history of bleeding. Patient did have a positive C. diff stool sample. CT of abdomen and pelvis completed showing wall thickening of the proximal sigmoid colon suggestive colitis that is worse and last computed tomography scan. There is minimal fat stranding at the umbilical hernia could relate to focal cellulitis and appears unchanged. Cyst on the left ovary. There is mildly dilated busily treated slightly increased compared to last exam. EEG completed showing normal sinus rhythm. Nonspecific T-wave abnormality. Initial white blood cell elevated at 17.8. Patient also having low-grade temp at 100.8. Patient currently on Rocephin, Flagyl and oral Vanco. Surgical services have been consulted. At this time patient denies chest pain or shortness of breath. Patient is complaining of diffuse abdominal tenderness. Patient denies any urinary burning or frequency. On 07/05/2018 patient is currently resting in bed. This time patient denies chest pain or shortness of breath. Patient still complaining of some abdominal pain. Patient denies any urinary burning or frequency. Patient remains on IV Flagyl and oral Vanco. Physical therapy will be consulted due to increased weakness On 07/06/2018 patient is resting comfortably. She denies chest pain or shortness of breath. She is still complaining of abdominal pain. Patient denies any urinary burning or frequency. Patient remains on IV Flagyl and oral Vanco. Surgery is following patient is still nothing by mouth On 07/07/2018 patient was seen and examined on the medical floor she is alert and oriented 3 she is still complaining of abdominal pain otherwise she denies any complaints there is no chest pain no shortness of breath no cough no fever or chills no nausea or vomiting and no urinary symptoms On 07/08/2018 patient is alert and oriented 3. Patient is some improvement with abdominal pain. Denies nausea vomiting diarrhea or constipation at this time. Patient has been tolerating a soft diet. Patient denies chest pain or shortness of breath. Patient is any urinary burning or frequency Objective - Vital Signs Vital signs: Vital Signs Temp 98.3 F 07/08/18 05:52 Pulse 84 07/08/18 09:02 Resp 20 07/08/18 08:00 BP 123/68 07/08/18 05:52 Pulse Ox 98 07/08/18 05:52 Intake & Output 07/07/18 07/08/18 07/08/18 18:59 06:59 18:59 Weight 56.5 kg Other: Voiding Method Bedside Commode Bedside Commode # Voids 3 1 # Bowel Movements 0 - Exam Head normocephalic Neck supple Lungs diminished bilaterally Heart regular rate and rhythm S1-S2, no rub or gallop Abdomen diffuse abdominal tenderness Extremities no edema Neuro alert and orientated to 3 - Labs CBC & Chem 7: 07/08/18 08:46 07/08/18 08:46 Labs: Abnormal Lab Results - Last 24 Hours (Table) 07/07/18 07/07/18 07/08/18 Range/Units 11:33 20:58 02:31 RBC (3.80-5.40) m/uL Hgb (11.4-16.0) gm/dL Hct (34.0-46.0) % BUN (7-17) mg/dL Creatinine (0.52-1.04) mg/dL POC Glucose (mg/dL) 107 H 112 H 107 H (75-99) mg/dL Total Protein (6.3-8.2) g/dL Albumin (3.5-5.0) g/dL 07/08/18 07/08/18 07/08/18 Range/Units 07:13 08:46 08:46 RBC 3.61 L (3.80-5.40) m/uL Hgb 10.9 L (11.4-16.0) gm/dL Hct 33.1 L (34.0-46.0) % BUN <2 L (7-17) mg/dL Creatinine 0.30 L (0.52-1.04) mg/dL POC Glucose (mg/dL) 111 H (75-99) mg/dL Total Protein 5.7 L (6.3-8.2) g/dL Albumin 3.1 L (3.5-5.0) g/dL Microbiology - Last 24 Hours (Table) 07/04/18 03:08 Stool Culture - Final Stool 07/03/18 18:10 Blood Culture - Preliminary Blood No Growth after 96 hours Assessment and Plan Assessment: 1. Abdominal pain with nausea and vomiting related to C. diff colitis. CT of abdomen completed showing wall thickening of the proximal sigmoid colon suggestive of colitis that is worse in the computed tomography scan. There is minimal straightening at the umbilical correlate for cellulitis. Cyst on the left ovary. There is mildly dilated biliary tree that is slightly increased compared to last exam. Surgical services have been consulted. Patient also positive for C. diff. Patient currently nothing by mouth. maintained on Vanco and Flagyl. Per surgical services continue antibiotics no complaints for acute surgical intervention at this time. Per GI services continue current regime. patient started on soft diet 2. History of proximal atrial fibrillation. According to medical records she is currently not on anticoagulation due to history of bleeding 3. History of COPD. Patient is home O2 dependent. Chest x-ray completed showing right lower lobe atelectasis or pneumonia and associated fusion. Emphysema. Additional findings above. Dr. KERRIE Webster has been consulted for pulmonary services. Pulmonary services Matt may be due to early aspiration versus atelectasis for which she is covered with flagyl 4. History of essential hypertension 5. History of chronic back pain 6. History of coronary artery disease 7. Left ovary cyst. Patient to follow-up closely with PCP DVT prophylaxis heparin. GI prophylaxis Protonix I performed an examination of the patient and discussed their management with the Nurse Practitioner. I have reviewed the Nurse Practitioner's notes and agree with the documented findings and plan of care
--- NOTE | 2018-07-08 10:39 | P.PN ---
Subjective Progress Note Date: 07/08/18 HPI: This is a 63-year-old female patient who presented to the emergency room with increasing abdominal pain. She had recently been admitted for colitis and duodenitis and had been discharged on oral antibiotics. She had been having some shortness of breath with some occasional wheezing. She was seen in the emergency room and admitted for further evaluation and treatment. She subsequently had lab work done which did reveal that she was positive for C. diff. She was seen by surgery and GI services. Was put on antibiotics. She continued to have some shortness of breath she does have a past medical history positive for asthma and COPD, coronary artery disease, atrial fibrillation, mitral valve prolapse, previous myocardial and correction, GERD and hypertension. The patient used to smoke a pack of cigarettes per day she quit smoking in 2013. She does use medical marijuana in the form of a edibles. Her chest x-ray did show some right lower zone aspiration type pneumonia versus atelectasis as well as emphysema changes. Interval history: 07/05/18-07/07/18- Please see Dr KERRIE Nuñez notes 07/08/2018patient is being seen examined and evaluated today on rounds. She is resting up in bed on 2 L of supplemental oxygen via nasal cannula. The patient states she does use 2L of supplemental oxygen at home. She also uses DuoNeb and the nebulizer machine and does take Qvar inhalers as well. She continues to have some shortness of breath with cough but has had no sputum reduction. She denies any abdominal pain, diarrhea or constipation. Afebrile no further complaints. Objective - Vital Signs Vital signs: Vital Signs Temp 98.3 F 07/08/18 05:52 Pulse 84 07/08/18 09:02 Resp 20 07/08/18 08:00 BP 123/68 07/08/18 05:52 Pulse Ox 98 07/08/18 05:52 Intake & Output 07/07/18 07/08/18 07/08/18 18:59 06:59 18:59 Weight 56.5 kg Other: Voiding Method Bedside Commode Bedside Commode # Voids 3 1 # Bowel Movements 0 - Exam GENERAL EXAM: Alert, active, comfortable in no apparent distress. HEAD: Normocephalic. EYES: Normal reaction of pupils, equal size. NOSE: Clear with pink turbinates. THROAT: No erythema or exudates. NECK: No masses, no JVD. CHEST: No chest wall deformity. LUNGS: Equal air entry with no crackles, wheeze, rhonchi or dullness. Bases diminished CVS: S1 and S2 normal with no audible mumurs, regular rhythm. ABDOMEN: No hepatosplenomegaly, normal bowel sounds, no guarding or rigidity. EXTREMITIES: No edema noted, pedal pulses palpable. CENTRAL NERVOUS SYSTEM: No focal deficits, tone is normal in all 4 extremities. - Labs CBC & Chem 7: 07/08/18 08:46 07/08/18 08:46 Labs: Abnormal Lab Results - Last 24 Hours (Table) 07/07/18 07/07/18 07/08/18 Range/Units 11:33 20:58 02:31 RBC (3.80-5.40) m/uL Hgb (11.4-16.0) gm/dL Hct (34.0-46.0) % BUN (7-17) mg/dL Creatinine (0.52-1.04) mg/dL POC Glucose (mg/dL) 107 H 112 H 107 H (75-99) mg/dL Total Protein (6.3-8.2) g/dL Albumin (3.5-5.0) g/dL 07/08/18 07/08/18 07/08/18 Range/Units 07:13 08:46 08:46 RBC 3.61 L (3.80-5.40) m/uL Hgb 10.9 L (11.4-16.0) gm/dL Hct 33.1 L (34.0-46.0) % BUN <2 L (7-17) mg/dL Creatinine 0.30 L (0.52-1.04) mg/dL POC Glucose (mg/dL) 111 H (75-99) mg/dL Total Protein 5.7 L (6.3-8.2) g/dL Albumin 3.1 L (3.5-5.0) g/dL Microbiology - Last 24 Hours (Table) 07/04/18 03:08 Stool Culture - Final Stool 07/03/18 18:10 Blood Culture - Preliminary Blood No Growth after 96 hours Assessment and Plan Assessment: Assessment C. difficile colitis COPD without exacerbation Chronic hypoxemia, dependent on home O2 at all times Chronic persistent moderate asthma without exacerbation Possible aspiration type pneumonia, covered with Flagyl Protein calorie malnutrition, moderate Plan Medications have been reviewed and will be continued as ordered. Continue with antibiotics Continue with pulmonary hygiene, coughing and deep breathing exercises, and supportive care. Supplemental oxygen to maintain oxygen saturations of 92% or better. Continue nebulizer treatments. Initiate and encourage incentive spirometer GI and DVT prophylaxis. Increase activity as tolerated We will continue to monitor labs/results and adjust treatment as necessary. Further recommendations pending. I, the signing physician performed an examination of the patient, discussed and directed their management with the nurse practitioner. I have reviewed the nurse practitioner's note and agree with the documented findings, orders and plan of care.
[2018-07-08 12:31] LABS: Glucose,Whole Blood 101 mg/dL (75-99)
--- NOTE | 2018-07-08 14:34 | P.PN ---
Subjective Progress Note Date: 07/08/18 No fevers overnight, no BM. No NV. Pain is improved Objective - Vital Signs Vital signs: Vital Signs Temp 98.3 F 07/08/18 05:52 Pulse 80 07/08/18 12:32 Resp 20 07/08/18 08:00 BP 123/68 07/08/18 05:52 Pulse Ox 98 07/08/18 05:52 Intake & Output 07/07/18 07/08/18 07/08/18 18:59 06:59 18:59 Weight 56.5 kg Other: Voiding Method Bedside Commode Bedside Commode # Voids 3 1 # Bowel Movements 0 - Constitutional General appearance: Present: cooperative - Respiratory Details: nonlabored - Cardiovascular Rhythm: regular - Gastrointestinal Gastrointestinal Comment(s): S/mild distention, mild TTP - Psychiatric Psychiatric: Present: A&O x's 3 - Labs CBC & Chem 7: 07/08/18 08:46 07/08/18 08:46 Labs: Abnormal Lab Results - Last 24 Hours (Table) 07/07/18 07/08/18 07/08/18 Range/Units 20:58 02:31 07:13 RBC (3.80-5.40) m/uL Hgb (11.4-16.0) gm/dL Hct (34.0-46.0) % BUN (7-17) mg/dL Creatinine (0.52-1.04) mg/dL POC Glucose (mg/dL) 112 H 107 H 111 H (75-99) mg/dL Total Protein (6.3-8.2) g/dL Albumin (3.5-5.0) g/dL 07/08/18 07/08/18 07/08/18 Range/Units 08:46 08:46 12:24 RBC 3.61 L (3.80-5.40) m/uL Hgb 10.9 L (11.4-16.0) gm/dL Hct 33.1 L (34.0-46.0) % BUN <2 L (7-17) mg/dL Creatinine 0.30 L (0.52-1.04) mg/dL POC Glucose (mg/dL) 101 H (75-99) mg/dL Total Protein 5.7 L (6.3-8.2) g/dL Albumin 3.1 L (3.5-5.0) g/dL Microbiology - Last 24 Hours (Table) 07/04/18 03:08 Stool Culture - Final Stool 07/03/18 18:10 Blood Culture - Preliminary Blood No Growth after 96 hours Assessment and Plan Assessment: C. diff colitis Plan: Cont. ABX.diet as tolerated. Colace for stool softener
[2018-07-08 17:27] LABS: Glucose,Whole Blood 95 mg/dL (75-99)
[2018-07-08 20:56] LABS: Glucose,Whole Blood 103 mg/dL (75-99)
[2018-07-08] MEDS: MONTELUKAST 10 MG TAB PO SCH (21:27)
[2018-07-08] MEDS: CHOLECALCIFEROL 1,000 UNIT TAB PO SCH (21:27)
[2018-07-08] MEDS: PRAMIPEXOLE 0.5 MG TAB PO SCH (21:27)
[2018-07-08] MEDS: DILTIAZEM CD 240 MG CAP.ER.24H PO SCH (21:27)
[2018-07-08] MEDS: MELATONIN 5 MG TABLET PO SCH (22:17)
[2018-07-09] MEDS: metroNIDAZOLE 500 MG TAB PO SCH ×4 (00:08→23:25)
[2018-07-09] MEDS: HYDROcodone/APAP 10-325MG 1 EACH TAB PO PRN ×4 (00:08→18:41)
[2018-07-09] MEDS: VANCOMYCIN ORAL SOLUTION 250 MG/5 ML BOTTLE PO SCH ×4 (01:24→17:43)
[2018-07-09] MEDS: CHERRY FLAVOR 60 ML BOTTLE PO SCH ×4 (01:24→17:42)
[2018-07-09] MEDS: HYDROmorphone 1 MG/ML 1 ML SYRINGE IVP PRN ×8 (01:24→23:38)
[2018-07-09 02:42] LABS: Glucose,Whole Blood 118 mg/dL (75-99)
[2018-07-09] MEDS: IPRATROPIUM-ALBUTEROL 3 ML NEB INHALATION PRN ×5 (04:39→19:55)
[2018-07-09] MEDS: DEXTROSE 5%-0.9% NACL 1,000 ML IV SCH ×2 (05:12→11:18)
[2018-07-09] MEDS: BUDESONIDE 0.5 MG/2 ML NEBU INHALATION SCH ×2 (07:19→19:55)
[2018-07-09 07:33] LABS: Glucose,Whole Blood 97 mg/dL (75-99)
[2018-07-09] MEDS: PANTOPRAZOLE 40 MG TABLET PO SCH (08:25)
[2018-07-09] MEDS: DOCUSATE 100 MG CAP PO SCH (08:25)
[2018-07-09] MEDS: HEPARIN SODIUM,PORCINE 5,000 UNIT/ML 1 ML VIAL SQ SCH ×2 (08:26→21:42)
[2018-07-09 09:33] LABS: Basophils % (A) 1 %; Eosinophils # (A) 0.5 k/uL (0-0.7); Eosinophils % (A) 7 %; HCT 35.6 % (34.0-46.0); HGB 11.7 gm/dL (11.4-16.0); Hypochromasia Slight; Lymphocytes # (A) 2.3 k/uL (1.0-4.8); Lymphocytes % (A) 32 %; MCH 30.6 pg (25.0-35.0); MCHC 32.9 g/dL (31.0-37.0); MCV 92.8 fL (80.0-100.0); Mean Platelet Volume 7.5; Monocytes # (A) 0.5 k/uL (0-1.0); Monocytes % (A) 7 %; Neutrophils # (A) 3.6 k/uL (1.3-7.7); Neutrophils % (A) 50 %; Platelet Count 326 k/uL (150-450); RBC 3.84 m/uL (3.80-5.40); RDW 14.5 % (11.5-15.5); WBC 7.1 k/uL (3.8-10.6)
[2018-07-09 09:42] LABS: ALT 21 U/L (9-52); AST 13 U/L (14-36); Albumin 3.5 g/dL (3.5-5.0); Alkaline Phosphatase 49 U/L (38-126); Anion Gap 8 mmol/L; Blood Urea Nitrogen 5 mg/dL (7-17); Calcium 9.4 mg/dL (8.4-10.2); Carbon Dioxide 31 mmol/L (22-30); Chloride 100 mmol/L (98-107); Glucose 104 mg/dL (74-99); Potassium 4.4 mmol/L (3.5-5.1); Sodium 139 mmol/L (137-145); Total Bilirubin 0.2 mg/dL (0.2-1.3); Total Protein 6.2 g/dL (6.3-8.2)
--- NOTE | 2018-07-09 09:56 | PN ---
PROGRESS NOTE DATE OF SERVICE: 07/09/2018 She has no diarrhea, but she has worsening shortness of breath associated with wheezing. On physical examination, her respiratory rate is 18, pulse rate of 74, temperature 97.8, blood pressure 114/66, O2 saturation on 2 L by nasal cannula is 97%. HEENT is unremarkable. Chest reveals decreased breath sounds with prolonged expiration and expiratory wheeze. Cardiovascular system reveals an S1, S2. Abdomen is soft. There is no pedal edema. IMPRESSION: 1. Clostridium difficile colitis. 2. Asthma with chronic obstructive pulmonary disease with acute exacerbation. Would add a short course of steroids. Continue bronchodilators, aerosolized steroids and montelukast. Increase her activity level. Depending on how she does, we shall make further changes to her care. [id number] / IJN: [id number] /
--- NOTE | 2018-07-09 10:33 | P.PN ---
Subjective Progress Note Date: 07/09/18 No fevers overnight, no BM she did pass some flatus. No NV. Pain is improved Objective - Vital Signs Vital signs: Vital Signs Temp 97.8 F 07/09/18 06:25 Pulse 76 07/09/18 07:36 Resp 18 07/09/18 08:00 BP 114/66 07/09/18 06:25 Pulse Ox 98 07/09/18 07:22 Intake & Output 07/08/18 07/09/18 07/09/18 18:59 06:59 18:59 Intake Total 640 Balance 640 Weight 55 kg Intake: Oral 640 Other: Voiding Method Bedside Commode Bedside Commode Bedside Commode # Voids 2 1 # Bowel Movements 0 - Respiratory Details: nonlabored on NC - Cardiovascular Rhythm: regular - Gastrointestinal Gastrointestinal Comment(s): soft/NT/mild distention - Psychiatric Psychiatric: Present: A&O x's 3 - Labs CBC & Chem 7: 07/09/18 08:33 07/09/18 08:33 Labs: Abnormal Lab Results - Last 24 Hours (Table) 07/08/18 07/08/18 07/09/18 Range/Units 12:24 20:51 02:39 Carbon Dioxide (22-30) mmol/L BUN (7-17) mg/dL Creatinine (0.52-1.04) mg/dL Glucose (74-99) mg/dL POC Glucose (mg/dL) 101 H 103 H 118 H (75-99) mg/dL AST (14-36) U/L Total Protein (6.3-8.2) g/dL 07/09/18 Range/Units 08:33 Carbon Dioxide 31 H (22-30) mmol/L BUN 5 L (7-17) mg/dL Creatinine 0.36 L (0.52-1.04) mg/dL Glucose 104 H (74-99) mg/dL POC Glucose (mg/dL) (75-99) mg/dL AST 13 L (14-36) U/L Total Protein 6.2 L (6.3-8.2) g/dL Microbiology - Last 24 Hours (Table) 07/03/18 18:10 Blood Culture - Preliminary Blood No Growth after 120 hours 07/04/18 03:08 Stool Culture - Final Stool Assessment and Plan Assessment: C. diff colitis Plan: Cont. ABX.diet as tolerated. Colace for stool softener
--- NOTE | 2018-07-09 11:05 | P.PN ---
Subjective Progress Note Date: 07/09/18 This is a 63-year-old female patient who presented to the emergency room with complaints of abdominal pain. Patient was recently admitted in early June for colitis duodenitis patient was discharged at that time with 10 day oral antibiotics. Patient states during that time she still had mild abdominal pain. Patient states that she completed her antibiotics she then developed severe abdominal pain with nausea and vomiting. Past medical history includes atrial fibrillation, coronary artery disease, home O2, heart failure, COPD, GERD , hypertension, liver disease, myocardial infarction, mitral valve prolapse, osteoarthritis anxiety, depression and PTSD. Per patient Records patient is not on anticoagulation for her Atrial Fibrillation due to history of bleeding. Patient did have a positive C. diff stool sample. CT of abdomen and pelvis completed showing wall thickening of the proximal sigmoid colon suggestive colitis that is worse and last computed tomography scan. There is minimal fat stranding at the umbilical hernia could relate to focal cellulitis and appears unchanged. Cyst on the left ovary. There is mildly dilated busily treated slightly increased compared to last exam. EEG completed showing normal sinus rhythm. Nonspecific T-wave abnormality. Initial white blood cell elevated at 17.8. Patient also having low-grade temp at 100.8. Patient currently on Rocephin, Flagyl and oral Vanco. Surgical services have been consulted. At this time patient denies chest pain or shortness of breath. Patient is complaining of diffuse abdominal tenderness. Patient denies any urinary burning or frequency. On 07/05/2018 patient is currently resting in bed. This time patient denies chest pain or shortness of breath. Patient still complaining of some abdominal pain. Patient denies any urinary burning or frequency. Patient remains on IV Flagyl and oral Vanco. Physical therapy will be consulted due to increased weakness On 07/06/2018 patient is resting comfortably. She denies chest pain or shortness of breath. She is still complaining of abdominal pain. Patient denies any urinary burning or frequency. Patient remains on IV Flagyl and oral Vanco. Surgery is following patient is still nothing by mouth On 07/07/2018 patient was seen and examined on the medical floor she is alert and oriented 3 she is still complaining of abdominal pain otherwise she denies any complaints there is no chest pain no shortness of breath no cough no fever or chills no nausea or vomiting and no urinary symptoms On 07/08/2018 patient is alert and oriented 3. Patient is some improvement with abdominal pain. Denies nausea vomiting diarrhea or constipation at this time. Patient has been tolerating a soft diet. Patient denies chest pain or shortness of breath. Patient is any urinary burning or frequency On 07/09/2018 patient is alert and oriented 3. Patient does state improvement with abdominal pain. Patient is complaining of increased shortness of breath. Dr. Webster following for pulmonary at this time patient denies chest pain or shortness of breath. Patient denies any nausea vomiting or diarrhea. Patient denies any urinary burning or frequency. Objective - Vital Signs Vital signs: Vital Signs Temp 97.8 F 07/09/18 06:25 Pulse 76 07/09/18 07:36 Resp 18 07/09/18 08:00 BP 114/66 07/09/18 06:25 Pulse Ox 98 07/09/18 07:22 Intake & Output 07/08/18 07/09/18 07/09/18 18:59 06:59 18:59 Intake Total 640 Balance 640 Weight 55 kg Intake: Oral 640 Other: Voiding Method Bedside Commode Bedside Commode Bedside Commode # Voids 2 1 # Bowel Movements 0 - Exam Head normocephalic Neck supple Lungs diminished bilaterally Heart regular rate and rhythm S1-S2, no rub or gallop Abdomen diffuse abdominal tenderness Extremities no edema Neuro alert and orientated to 3 - Labs CBC & Chem 7: 07/09/18 08:33 07/09/18 08:33 Labs: Abnormal Lab Results - Last 24 Hours (Table) 07/08/18 07/08/18 07/09/18 Range/Units 12:24 20:51 02:39 Carbon Dioxide (22-30) mmol/L BUN (7-17) mg/dL Creatinine (0.52-1.04) mg/dL Glucose (74-99) mg/dL POC Glucose (mg/dL) 101 H 103 H 118 H (75-99) mg/dL AST (14-36) U/L Total Protein (6.3-8.2) g/dL 07/09/18 Range/Units 08:33 Carbon Dioxide 31 H (22-30) mmol/L BUN 5 L (7-17) mg/dL Creatinine 0.36 L (0.52-1.04) mg/dL Glucose 104 H (74-99) mg/dL POC Glucose (mg/dL) (75-99) mg/dL AST 13 L (14-36) U/L Total Protein 6.2 L (6.3-8.2) g/dL Microbiology - Last 24 Hours (Table) 07/03/18 18:10 Blood Culture - Preliminary Blood No Growth after 120 hours 07/04/18 03:08 Stool Culture - Final Stool Assessment and Plan Assessment: 1. Abdominal pain with nausea and vomiting related to C. diff colitis. CT of abdomen completed showing wall thickening of the proximal sigmoid colon suggestive of colitis that is worse in the computed tomography scan. There is minimal straightening at the umbilical correlate for cellulitis. Cyst on the left ovary. There is mildly dilated biliary tree that is slightly increased compared to last exam. Surgical services have been consulted. Patient also positive for C. diff. Patient currently nothing by mouth. maintained on Vanco and Flagyl. Per surgical services continue antibiotics no complaints for acute surgical intervention at this time. Per GI services continue current regime. patient started on soft diet 2. History of proximal atrial fibrillation. According to medical records she is currently not on anticoagulation due to history of bleeding 3. History of COPD. Patient is home O2 dependent. Chest x-ray completed showing right lower lobe atelectasis or pneumonia and associated fusion. Emphysema. Additional findings above. Dr. KERRIE Webster has been consulted for pulmonary services. Pulmonary services Matt may be due to early aspiration versus atelectasis for which she is covered with flagyl. IV Solu-Medrol has been added per pulmonary services 4. History of essential hypertension 5. History of chronic back pain 6. History of coronary artery disease 7. Left ovary cyst. Patient to follow-up closely with PCP DVT prophylaxis heparin. GI prophylaxis Protonix I performed an examination of the patient and discussed their management with the Nurse Practitioner. I have reviewed the Nurse Practitioner's notes and agree with the documented findings and plan of care
[2018-07-09 12:11] LABS: Glucose,Whole Blood 91 mg/dL (75-99)
[2018-07-09] MEDS: methylPREDNISolone SOD SUCCI 125 MG/2 ML VIAL IV SCH ×3 (12:36→23:25)
[2018-07-09 14:46] VITALS: BMI 23.6
[2018-07-09 17:15] LABS: Glucose,Whole Blood 221 mg/dL (75-99)
[2018-07-09] MEDS ORDERED: INSULIN ASPART 100 UNIT/ML 1 ML 10 ML VIAL SQ ONE (17:45)
[2018-07-09 20:47] LABS: Glucose,Whole Blood 211 mg/dL (75-99)
[2018-07-09] MEDS: PRAMIPEXOLE 0.5 MG TAB PO SCH (21:42)
[2018-07-09] MEDS: MELATONIN 5 MG TABLET PO SCH (21:42)
[2018-07-09] MEDS: CHOLECALCIFEROL 1,000 UNIT TAB PO SCH (21:42)
[2018-07-09] MEDS: DILTIAZEM CD 240 MG CAP.ER.24H PO SCH (21:42)
[2018-07-09] MEDS: MONTELUKAST 10 MG TAB PO SCH (21:42)
[2018-07-09] MEDS: INSULIN ASPART 100 UNIT/ML 1 ML 10 ML VIAL SQ SCH (21:44)
[2018-07-10] MEDS: HYDROcodone/APAP 10-325MG 1 EACH TAB PO PRN ×4 (00:43→19:35)
[2018-07-10] MEDS: VANCOMYCIN ORAL SOLUTION 250 MG/5 ML BOTTLE PO SCH ×4 (00:43→18:12)
[2018-07-10] MEDS: CHERRY FLAVOR 60 ML BOTTLE PO SCH ×4 (00:44→18:11)
[2018-07-10] MEDS: HYDROmorphone 1 MG/ML 1 ML SYRINGE IVP PRN ×6 (04:37→21:53)
[2018-07-10] MEDS: methylPREDNISolone SOD SUCCI 125 MG/2 ML VIAL IV SCH (06:34)
[2018-07-10] MEDS: BUDESONIDE 0.5 MG/2 ML NEBU INHALATION SCH ×2 (07:29→20:04)
[2018-07-10] MEDS: IPRATROPIUM-ALBUTEROL 3 ML NEB INHALATION PRN ×4 (07:29→20:04)
[2018-07-10 07:37] LABS: Glucose,Whole Blood 129 mg/dL (75-99)
[2018-07-10] MEDS: INSULIN ASPART 100 UNIT/ML 1 ML 10 ML VIAL SQ SCH ×4 (08:21→21:50)
[2018-07-10] MEDS: PANTOPRAZOLE 40 MG TABLET PO SCH (08:21)
[2018-07-10] MEDS: HEPARIN SODIUM,PORCINE 5,000 UNIT/ML 1 ML VIAL SQ SCH ×2 (08:21→21:45)
[2018-07-10] MEDS: DOCUSATE 100 MG CAP PO SCH (08:21)
[2018-07-10] MEDS: metroNIDAZOLE 500 MG TAB PO SCH ×3 (08:21→23:26)
--- NOTE | 2018-07-10 09:41 | P.PN ---
Subjective Progress Note Date: 07/10/18 This is a 63-year-old female patient who presented to the emergency room with complaints of abdominal pain. Patient was recently admitted in early June for colitis duodenitis patient was discharged at that time with 10 day oral antibiotics. Patient states during that time she still had mild abdominal pain. Patient states that she completed her antibiotics she then developed severe abdominal pain with nausea and vomiting. Past medical history includes atrial fibrillation, coronary artery disease, home O2, heart failure, COPD, GERD , hypertension, liver disease, myocardial infarction, mitral valve prolapse, osteoarthritis anxiety, depression and PTSD. Per patient Records patient is not on anticoagulation for her Atrial Fibrillation due to history of bleeding. Patient did have a positive C. diff stool sample. CT of abdomen and pelvis completed showing wall thickening of the proximal sigmoid colon suggestive colitis that is worse and last computed tomography scan. There is minimal fat stranding at the umbilical hernia could relate to focal cellulitis and appears unchanged. Cyst on the left ovary. There is mildly dilated busily treated slightly increased compared to last exam. EEG completed showing normal sinus rhythm. Nonspecific T-wave abnormality. Initial white blood cell elevated at 17.8. Patient also having low-grade temp at 100.8. Patient currently on Rocephin, Flagyl and oral Vanco. Surgical services have been consulted. At this time patient denies chest pain or shortness of breath. Patient is complaining of diffuse abdominal tenderness. Patient denies any urinary burning or frequency. On 07/05/2018 patient is currently resting in bed. This time patient denies chest pain or shortness of breath. Patient still complaining of some abdominal pain. Patient denies any urinary burning or frequency. Patient remains on IV Flagyl and oral Vanco. Physical therapy will be consulted due to increased weakness On 07/06/2018 patient is resting comfortably. She denies chest pain or shortness of breath. She is still complaining of abdominal pain. Patient denies any urinary burning or frequency. Patient remains on IV Flagyl and oral Vanco. Surgery is following patient is still nothing by mouth On 07/07/2018 patient was seen and examined on the medical floor she is alert and oriented 3 she is still complaining of abdominal pain otherwise she denies any complaints there is no chest pain no shortness of breath no cough no fever or chills no nausea or vomiting and no urinary symptoms On 07/08/2018 patient is alert and oriented 3. Patient is some improvement with abdominal pain. Denies nausea vomiting diarrhea or constipation at this time. Patient has been tolerating a soft diet. Patient denies chest pain or shortness of breath. Patient is any urinary burning or frequency On 07/09/2018 patient is alert and oriented 3. Patient does state improvement with abdominal pain. Patient is complaining of increased shortness of breath. Dr. Webster following for pulmonary at this time patient denies chest pain or shortness of breath. Patient denies any nausea vomiting or diarrhea. Patient denies any urinary burning or frequency. On 07/10/2018 patient is alert and oriented 3. Patient states improvement with her shortness of breath and abdominal pain. Patient is planning to increase her activity level today. At this time patient denies chest pain or shortness of breath. Patient denies nausea vomiting or diarrhea. Patient denies any urinary burning or frequency Objective - Vital Signs Vital signs: Vital Signs Temp 97.3 F L 07/10/18 05:06 Pulse 90 07/10/18 08:00 Resp 16 07/10/18 08:00 BP 134/68 07/10/18 05:06 Pulse Ox 97 07/10/18 05:06 Intake & Output 07/09/18 07/10/18 07/10/18 18:59 06:59 18:59 Intake Total 120 Balance 120 Weight 55 kg 54.5 kg Intake: Oral 120 Other: Voiding Method Bedside Commode Bedside Commode Bedside Commode # Voids 3 1 # Bowel Movements 0 - Exam Head normocephalic Neck supple Lungs diminished bilaterally Heart regular rate and rhythm S1-S2, no rub or gallop Abdomen diffuse abdominal tenderness Extremities no edema Neuro alert and orientated to 3 - Labs CBC & Chem 7: 07/09/18 08:33 07/09/18 08:33 Labs: Abnormal Lab Results - Last 24 Hours (Table) 07/09/18 07/09/18 07/09/18 Range/Units 08:33 17:13 20:32 Carbon Dioxide 31 H (22-30) mmol/L BUN 5 L (7-17) mg/dL Creatinine 0.36 L (0.52-1.04) mg/dL Glucose 104 H (74-99) mg/dL POC Glucose (mg/dL) 221 H 211 H (75-99) mg/dL AST 13 L (14-36) U/L Total Protein 6.2 L (6.3-8.2) g/dL 07/10/18 Range/Units 07:22 Carbon Dioxide (22-30) mmol/L BUN (7-17) mg/dL Creatinine (0.52-1.04) mg/dL Glucose (74-99) mg/dL POC Glucose (mg/dL) 129 H (75-99) mg/dL AST (14-36) U/L Total Protein (6.3-8.2) g/dL Microbiology - Last 24 Hours (Table) 07/03/18 18:10 Blood Culture - Final Blood No Growth after 144 hours Assessment and Plan Assessment: 1. Abdominal pain with nausea and vomiting related to C. diff colitis. CT of abdomen completed showing wall thickening of the proximal sigmoid colon suggestive of colitis that is worse in the computed tomography scan. There is minimal straightening at the umbilical correlate for cellulitis. Cyst on the left ovary. There is mildly dilated biliary tree that is slightly increased compared to last exam. Surgical services have been consulted. Patient also positive for C. diff. Patient currently nothing by mouth. maintained on Vanco and Flagyl. Per surgical services continue antibiotics no complaints for acute surgical intervention at this time. Per GI services continue current regime. patient started on soft diet 2. History of proximal atrial fibrillation. According to medical records she is currently not on anticoagulation due to history of bleeding 3. History of COPD. Patient is home O2 dependent. Chest x-ray completed showing right lower lobe atelectasis or pneumonia and associated fusion. Emphysema. Additional findings above. Dr. KERRIE Webster has been consulted for pulmonary services. Pulmonary services Matt may be due to early aspiration versus atelectasis for which she is covered with flagyl. IV Solu-Medrol has been added per pulmonary services 4. History of essential hypertension 5. History of chronic back pain 6. History of coronary artery disease 7. Left ovary cyst. Patient to follow-up closely with PCP DVT prophylaxis heparin. GI prophylaxis Protonix Increase activities. Physical therapy consulted I performed an examination of the patient and discussed their management with the Nurse Practitioner. I have reviewed the Nurse Practitioner's notes and agree with the documented findings and plan of care
--- NOTE | 2018-07-10 09:53 | P.PN ---
Subjective Progress Note Date: 07/10/18 HPI: This is a 63-year-old female patient who presented to the emergency room with increasing abdominal pain. She had recently been admitted for colitis and duodenitis and had been discharged on oral antibiotics. She had been having some shortness of breath with some occasional wheezing. She was seen in the emergency room and admitted for further evaluation and treatment. She subsequently had lab work done which did reveal that she was positive for C. diff. She was seen by surgery and GI services. Was put on antibiotics. She continued to have some shortness of breath she does have a past medical history positive for asthma and COPD, coronary artery disease, atrial fibrillation, mitral valve prolapse, previous myocardial and correction, GERD and hypertension. The patient used to smoke a pack of cigarettes per day she quit smoking in 2013. She does use medical marijuana in the form of a edibles. Her chest x-ray did show some right lower zone aspiration type pneumonia versus atelectasis as well as emphysema changes. Interval history: 07/05/18-07/07/18- Please see Dr KERRIE Nuñez notes 07/08/2018patient is being seen examined and evaluated today on rounds. She is resting up in bed on 2 L of supplemental oxygen via nasal cannula. The patient states she does use 2L of supplemental oxygen at home. She also uses DuoNeb and the nebulizer machine and does take Qvar inhalers as well. She continues to have some shortness of breath with cough but has had no sputum reduction. She denies any abdominal pain, diarrhea or constipation. Afebrile no further complaints. 07/09/18- Please see Dr KERRIE Nuñez notes 07/10/18- patient is being seen examined and evaluated today on rounds. She is resting up in bed on 2 L of supplemental oxygen via nasal cannula. She is afebrile no further complaints. Breathing has been stable, steroids have been tapered. Denies any cough or congestion. Has been tolerating her diet. Objective - Vital Signs Vital signs: Vital Signs Temp 97.3 F L 07/10/18 05:06 Pulse 90 07/10/18 08:00 Resp 16 07/10/18 08:00 BP 134/68 07/10/18 05:06 Pulse Ox 97 07/10/18 05:06 Intake & Output 07/09/18 07/10/18 07/10/18 18:59 06:59 18:59 Intake Total 120 Balance 120 Weight 55 kg 54.5 kg Intake: Oral 120 Other: Voiding Method Bedside Commode Bedside Commode Bedside Commode # Voids 3 1 # Bowel Movements 0 - Exam GENERAL EXAM: Alert, active, comfortable in no apparent distress. HEAD: Normocephalic. EYES: Normal reaction of pupils, equal size. NOSE: Clear with pink turbinates. THROAT: No erythema or exudates. NECK: No masses, no JVD. CHEST: No chest wall deformity. LUNGS: Equal air entry with no crackles, wheeze, rhonchi or dullness. Bases diminished CVS: S1 and S2 normal with no audible mumurs, regular rhythm. ABDOMEN: No hepatosplenomegaly, normal bowel sounds, no guarding or rigidity. EXTREMITIES: No edema noted, pedal pulses palpable. CENTRAL NERVOUS SYSTEM: No focal deficits, tone is normal in all 4 extremities. - Labs CBC & Chem 7: 07/09/18 08:33 07/09/18 08:33 Labs: Abnormal Lab Results - Last 24 Hours (Table) 07/09/18 07/09/18 07/10/18 Range/Units 17:13 20:32 07:22 POC Glucose (mg/dL) 221 H 211 H 129 H (75-99) mg/dL Microbiology - Last 24 Hours (Table) 07/03/18 18:10 Blood Culture - Final Blood No Growth after 144 hours Assessment and Plan Assessment: Assessment C. difficile colitis COPD without exacerbation Chronic hypoxemia, dependent on home O2 at all times Chronic persistent moderate asthma without exacerbation Possible aspiration type pneumonia, covered with Flagyl Protein calorie malnutrition, moderate Plan Medications have been reviewed and will be continued as ordered. Continue with antibiotics Steroids tapered Continue with pulmonary hygiene, coughing and deep breathing exercises, and supportive care. Supplemental oxygen to maintain oxygen saturations of 92% or better. Continue nebulizer treatments. Initiate and encourage incentive spirometer GI and DVT prophylaxis. Increase activity as tolerated We will continue to monitor labs/results and adjust treatment as necessary. Further recommendations pending. I, the signing physician performed an examination of the patient, discussed and directed their management with the nurse practitioner. I have reviewed the nurse practitioner's note and agree with the documented findings, orders and plan of care.
[2018-07-10 10:49] LABS: ALT 21 U/L (9-52); AST 10 U/L (14-36); Albumin 3.7 g/dL (3.5-5.0); Alkaline Phosphatase 63 U/L (38-126); Anion Gap 10 mmol/L; Blood Urea Nitrogen 12 mg/dL (7-17); Calcium 9.7 mg/dL (8.4-10.2); Carbon Dioxide 29 mmol/L (22-30); Chloride 100 mmol/L (98-107); Glucose 121 mg/dL (74-99); Potassium 4.2 mmol/L (3.5-5.1); Sodium 139 mmol/L (137-145); Total Bilirubin 0.3 mg/dL (0.2-1.3); Total Protein 6.6 g/dL (6.3-8.2)
[2018-07-10 10:51] LABS: Basophils % (A) 0 %; Eosinophils % (A) 0 %; HCT 37.5 % (34.0-46.0); Hypochromasia Slight; Lymphocytes # (A) 0.8 k/uL (1.0-4.8); Lymphocytes % (A) 8 %; MCH 29.6 pg (25.0-35.0); MCHC 31.9 g/dL (31.0-37.0); MCV 92.9 fL (80.0-100.0); Mean Platelet Volume 7.1; Monocytes # (A) 0.2 k/uL (0-1.0); Monocytes % (A) 2 %; Neutrophils # (A) 8.6 k/uL (1.3-7.7); Neutrophils % (A) 89 %; Platelet Count 354 k/uL (150-450); RBC 4.04 m/uL (3.80-5.40); RDW 14.6 % (11.5-15.5); WBC 9.6 k/uL (3.8-10.6)
[2018-07-10 12:10] LABS: Glucose,Whole Blood 129 mg/dL (75-99)
[2018-07-10] MEDS: ONDANSETRON ODT 4 MG TAB PO PRN (14:18)
--- NOTE | 2018-07-10 14:35 | P.PN ---
Subjective Progress Note Date: 07/10/18 No fevers overnight, no BM she did pass some flatus. No NV. Pain is improved Objective - Vital Signs Vital signs: Vital Signs Temp 97.3 F L 07/10/18 05:06 Pulse 72 07/10/18 11:34 Resp 16 07/10/18 08:00 BP 134/68 07/10/18 05:06 Pulse Ox 97 07/10/18 05:06 Intake & Output 07/09/18 07/10/18 07/10/18 18:59 06:59 18:59 Intake Total 120 Balance 120 Weight 55 kg 54.5 kg Intake: Oral 120 Other: Voiding Method Bedside Commode Bedside Commode Bedside Commode # Voids 3 1 # Bowel Movements 0 - Constitutional General appearance: Present: cooperative - Respiratory Details: nonlabored - Cardiovascular Rhythm: regular - Gastrointestinal Gastrointestinal Comment(s): S/NT/ND - Psychiatric Psychiatric: Present: A&O x's 3 - Labs CBC & Chem 7: 07/10/18 10:02 07/10/18 10:02 Labs: Abnormal Lab Results - Last 24 Hours (Table) 07/09/18 07/09/18 07/10/18 Range/Units 17:13 20:32 07:22 Neutrophils # (1.3-7.7) k/uL Lymphocytes # (1.0-4.8) k/uL Creatinine (0.52-1.04) mg/dL Glucose (74-99) mg/dL POC Glucose (mg/dL) 221 H 211 H 129 H (75-99) mg/dL AST (14-36) U/L 07/10/18 07/10/18 07/10/18 Range/Units 10:02 10:02 12:00 Neutrophils # 8.6 H (1.3-7.7) k/uL Lymphocytes # 0.8 L (1.0-4.8) k/uL Creatinine 0.31 L (0.52-1.04) mg/dL Glucose 121 H (74-99) mg/dL POC Glucose (mg/dL) 129 H (75-99) mg/dL AST 10 L (14-36) U/L Microbiology - Last 24 Hours (Table) 07/03/18 18:10 Blood Culture - Final Blood No Growth after 144 hours Assessment and Plan Assessment: C. diff colitis Plan: Cont. ABX.diet as tolerated. Colace for stool softener
[2018-07-10] MEDS: methylPREDNISolone SOD SUCCI 40 MG/ML 1 ML VIAL IV SCH ×2 (15:22→23:26)
[2018-07-10 17:10] LABS: Glucose,Whole Blood 138 mg/dL (75-99)
[2018-07-10 21:00] LABS: Glucose,Whole Blood 164 mg/dL (75-99)
[2018-07-10] MEDS: MELATONIN 5 MG TABLET PO SCH (21:44)
[2018-07-10] MEDS: CHOLECALCIFEROL 1,000 UNIT TAB PO SCH (21:45)
[2018-07-10] MEDS: MONTELUKAST 10 MG TAB PO SCH (21:45)
[2018-07-10] MEDS: DILTIAZEM CD 240 MG CAP.ER.24H PO SCH (21:45)
[2018-07-10] MEDS: PRAMIPEXOLE 0.5 MG TAB PO SCH (21:45)
[2018-07-10] MEDS: ALPRAZolam 0.25 MG TAB PO PRN (23:26)
[2018-07-11] MEDS: VANCOMYCIN ORAL SOLUTION 250 MG/5 ML BOTTLE PO SCH ×4 (01:56→18:17)
[2018-07-11] MEDS: HYDROcodone/APAP 10-325MG 1 EACH TAB PO PRN ×4 (01:56→20:42)
[2018-07-11] MEDS: CHERRY FLAVOR 60 ML BOTTLE PO SCH ×4 (01:56→18:17)
[2018-07-11] MEDS: HYDROmorphone 1 MG/ML 1 ML SYRINGE IVP PRN ×5 (04:53→19:41)
[2018-07-11] MEDS: IPRATROPIUM-ALBUTEROL 3 ML NEB INHALATION PRN ×2 (05:00→08:49)
[2018-07-11] MEDS: PANTOPRAZOLE 40 MG TABLET PO SCH (07:27)
[2018-07-11] MEDS: metroNIDAZOLE 500 MG TAB PO SCH ×2 (07:27→16:43)
[2018-07-11] MEDS: methylPREDNISolone SOD SUCCI 40 MG/ML 1 ML VIAL IV SCH ×2 (07:27→16:43)
[2018-07-11] MEDS: DOCUSATE 100 MG CAP PO SCH (07:29)
[2018-07-11] MEDS: HEPARIN SODIUM,PORCINE 5,000 UNIT/ML 1 ML VIAL SQ SCH ×3 (07:29→20:50)
[2018-07-11] MEDS: INSULIN ASPART 100 UNIT/ML 1 ML 10 ML VIAL SQ SCH ×4 (07:38→21:03)
[2018-07-11 07:59] LABS: Glucose,Whole Blood 141 mg/dL (75-99)
[2018-07-11] MEDS: CHOLECALCIFEROL 1,000 UNIT TAB PO SCH (08:40)
[2018-07-11] MEDS: BUDESONIDE 0.5 MG/2 ML NEBU INHALATION SCH ×2 (08:49→19:29)
--- NOTE | 2018-07-11 10:25 | P.PN ---
Subjective Progress Note Date: 07/11/18 This is a 63-year-old female patient who presented to the emergency room with complaints of abdominal pain. Patient was recently admitted in early June for colitis duodenitis patient was discharged at that time with 10 day oral antibiotics. Patient states during that time she still had mild abdominal pain. Patient states that she completed her antibiotics she then developed severe abdominal pain with nausea and vomiting. Past medical history includes atrial fibrillation, coronary artery disease, home O2, heart failure, COPD, GERD , hypertension, liver disease, myocardial infarction, mitral valve prolapse, osteoarthritis anxiety, depression and PTSD. Per patient Records patient is not on anticoagulation for her Atrial Fibrillation due to history of bleeding. Patient did have a positive C. diff stool sample. CT of abdomen and pelvis completed showing wall thickening of the proximal sigmoid colon suggestive colitis that is worse and last computed tomography scan. There is minimal fat stranding at the umbilical hernia could relate to focal cellulitis and appears unchanged. Cyst on the left ovary. There is mildly dilated busily treated slightly increased compared to last exam. EEG completed showing normal sinus rhythm. Nonspecific T-wave abnormality. Initial white blood cell elevated at 17.8. Patient also having low-grade temp at 100.8. Patient currently on Rocephin, Flagyl and oral Vanco. Surgical services have been consulted. At this time patient denies chest pain or shortness of breath. Patient is complaining of diffuse abdominal tenderness. Patient denies any urinary burning or frequency. On 07/05/2018 patient is currently resting in bed. This time patient denies chest pain or shortness of breath. Patient still complaining of some abdominal pain. Patient denies any urinary burning or frequency. Patient remains on IV Flagyl and oral Vanco. Physical therapy will be consulted due to increased weakness On 07/06/2018 patient is resting comfortably. She denies chest pain or shortness of breath. She is still complaining of abdominal pain. Patient denies any urinary burning or frequency. Patient remains on IV Flagyl and oral Vanco. Surgery is following patient is still nothing by mouth On 07/07/2018 patient was seen and examined on the medical floor she is alert and oriented 3 she is still complaining of abdominal pain otherwise she denies any complaints there is no chest pain no shortness of breath no cough no fever or chills no nausea or vomiting and no urinary symptoms On 07/08/2018 patient is alert and oriented 3. Patient is some improvement with abdominal pain. Denies nausea vomiting diarrhea or constipation at this time. Patient has been tolerating a soft diet. Patient denies chest pain or shortness of breath. Patient is any urinary burning or frequency On 07/09/2018 patient is alert and oriented 3. Patient does state improvement with abdominal pain. Patient is complaining of increased shortness of breath. Dr. Webster following for pulmonary at this time patient denies chest pain or shortness of breath. Patient denies any nausea vomiting or diarrhea. Patient denies any urinary burning or frequency. On 07/10/2018 patient is alert and oriented 3. Patient states improvement with her shortness of breath and abdominal pain. Patient is planning to increase her activity level today. At this time patient denies chest pain or shortness of breath. Patient denies nausea vomiting or diarrhea. Patient denies any urinary burning or frequency On 07/11/2018 patient is currently resting comfortably in bed. Patient states she did have soft large BM this a.m. no pain or diarrhea. Patient is complaining of increased shortness of breath. Pulmonary services are following a chest x-ray has been ordered. At this time patient denies chest pain. Patient denies nausea vomiting or diarrhea. Patient denies any urinary burning or frequency Objective - Vital Signs Vital signs: Vital Signs Temp 97.6 F 07/11/18 07:53 Pulse 88 07/11/18 09:02 Resp 16 07/11/18 07:53 BP 126/73 07/11/18 07:53 Pulse Ox 92 L 07/11/18 07:53 Intake & Output 07/10/18 07/11/18 07/11/18 18:59 06:59 18:59 Weight 55 kg Other: Voiding Method Bedside Commode Bedside Commode Bedside Commode # Voids 2 1 # Bowel Movements 1 - Exam Head normocephalic Neck supple Lungs diminished bilaterally Heart regular rate and rhythm S1-S2, no rub or gallop Abdomen diffuse abdominal tenderness Extremities no edema Neuro alert and orientated to 3 - Labs CBC & Chem 7: 07/10/18 10:02 07/10/18 10:02 Labs: Abnormal Lab Results - Last 24 Hours (Table) 07/10/18 07/10/18 07/10/18 Range/Units 10:02 10:02 12:00 Neutrophils # 8.6 H (1.3-7.7) k/uL Lymphocytes # 0.8 L (1.0-4.8) k/uL Creatinine 0.31 L (0.52-1.04) mg/dL Glucose 121 H (74-99) mg/dL POC Glucose (mg/dL) 129 H (75-99) mg/dL AST 10 L (14-36) U/L 07/10/18 07/10/18 07/11/18 Range/Units 17:00 20:59 07:32 Neutrophils # (1.3-7.7) k/uL Lymphocytes # (1.0-4.8) k/uL Creatinine (0.52-1.04) mg/dL Glucose (74-99) mg/dL POC Glucose (mg/dL) 138 H 164 H 141 H (75-99) mg/dL AST (14-36) U/L Assessment and Plan Assessment: 1. Abdominal pain with nausea and vomiting related to C. diff colitis. CT of abdomen completed showing wall thickening of the proximal sigmoid colon suggestive of colitis that is worse in the computed tomography scan. There is minimal straightening at the umbilical correlate for cellulitis. Cyst on the left ovary. There is mildly dilated biliary tree that is slightly increased compared to last exam. Surgical services have been consulted. Patient also positive for C. diff. Patient currently nothing by mouth. maintained on Vanco and Flagyl. Per surgical services continue antibiotics no complaints for acute surgical intervention at this time. Per GI services continue current regime. patient started on soft diet. Patient did have soft BM this a.m. with no pain. 2. History of proximal atrial fibrillation. According to medical records she is currently not on anticoagulation due to history of bleeding 3. History of COPD. Patient is home O2 dependent. Chest x-ray completed showing right lower lobe atelectasis or pneumonia and associated fusion. Emphysema. Additional findings above. Dr. KERRIE Webster has been consulted for pulmonary services. Per Pulmonary services may be due to early aspiration versus atelectasis for which she is covered with flagyl. IV Solu-Medrol has been added per pulmonary services. Repeat chest x-ray has been ordered 4. History of essential hypertension 5. History of chronic back pain 6. History of coronary artery disease 7. Left ovary cyst. Patient to follow-up closely with PCP 8. Anxiety. Xanax has been added DVT prophylaxis heparin. GI prophylaxis Protonix I performed an examination of the patient and discussed their management with the Nurse Practitioner. I have reviewed the Nurse Practitioner's notes and agree with the documented findings and plan of care
--- NOTE | 2018-07-11 10:39 | XR ---
EXAMINATION TYPE: XR chest 2V DATE OF EXAM: 07/11/2018 COMPARISON: 07/05/2018 HISTORY: Right lower lobe opacity. Follow-up exam. Shortness of breath. TECHNIQUE: Frontal and lateral views of the chest are obtained. FINDINGS: There is complete resolution of the previously seen right basilar opacity. Pulmonary hyper inflation and flattening the diaphragms is again payable representative of underlying COPD. There is also inc reased retrosternal airspace. Eventration of the right hemidiaphragm is noted. There is no focal air space opacity, pleural effusion, or pneumothorax seen. The cardiac silhouette size is within normal limits. The osseous structures are intact. Scoliotic curvature of the spine is redemonstrated. IMPRESSION: Resolution of the previously seen right basilar opacity. No new focal consolidation. Rad iographic sequela of COPD.
[2018-07-11 11:35] LABS: Basophils % (A) 0 %; Eosinophils % (A) 0 %; HCT 36.8 % (34.0-46.0); HGB 12.1 gm/dL (11.4-16.0); Hypochromasia Moderate; Lymphocytes # (A) 0.5 k/uL (1.0-4.8); Lymphocytes % (A) 4 %; MCH 31.1 pg (25.0-35.0); MCHC 32.8 g/dL (31.0-37.0); MCV 94.8 fL (80.0-100.0); Mean Platelet Volume 7.4; Monocytes # (A) 0.4 k/uL (0-1.0); Monocytes % (A) 3 %; Neutrophils % (A) 92 %; Platelet Count 366 k/uL (150-450); RBC 3.88 m/uL (3.80-5.40); RDW 14.6 % (11.5-15.5)
[2018-07-11 11:37] LABS: ALT 20 U/L (9-52); AST 10 U/L (14-36); Albumin 3.9 g/dL (3.5-5.0); Alkaline Phosphatase 70 U/L (38-126); Anion Gap 10 mmol/L; Blood Urea Nitrogen 21 mg/dL (7-17); Calcium 9.7 mg/dL (8.4-10.2); Carbon Dioxide 28 mmol/L (22-30); Chloride 103 mmol/L (98-107); Glucose 147 mg/dL (74-99); Sodium 141 mmol/L (137-145); Total Bilirubin 0.2 mg/dL (0.2-1.3); Total Protein 6.6 g/dL (6.3-8.2)
[2018-07-11] MEDS: IPRATROPIUM-ALBUTEROL 3 ML NEB INHALATION SCH ×3 (11:55→19:29)
[2018-07-11 12:00] LABS: Glucose,Whole Blood 166 mg/dL (75-99)
--- NOTE | 2018-07-11 12:39 | P.PN ---
Subjective Progress Note Date: 07/11/18 No fevers overnight, she did have a soft BM. No NV. Pain is improved Objective - Vital Signs Vital signs: Vital Signs Temp 97.6 F 07/11/18 07:53 Pulse 92 07/11/18 12:06 Resp 16 07/11/18 07:53 BP 126/73 07/11/18 07:53 Pulse Ox 92 L 07/11/18 07:53 Intake & Output 07/10/18 07/11/18 07/11/18 18:59 06:59 18:59 Weight 55 kg Other: Voiding Method Bedside Commode Bedside Commode Bedside Commode # Voids 2 1 # Bowel Movements 1 - Constitutional General appearance: Present: cooperative - Respiratory Details: nonlabored - Cardiovascular Rhythm: regular - Gastrointestinal Gastrointestinal Comment(s): soft/NT/ND - Psychiatric Psychiatric: Present: A&O x's 3 - Labs CBC & Chem 7: 07/11/18 10:26 07/11/18 10:26 Labs: Abnormal Lab Results - Last 24 Hours (Table) 07/10/18 07/10/18 07/11/18 Range/Units 17:00 20:59 07:32 WBC (3.8-10.6) k/uL Neutrophils # (1.3-7.7) k/uL Lymphocytes # (1.0-4.8) k/uL BUN (7-17) mg/dL Creatinine (0.52-1.04) mg/dL Glucose (74-99) mg/dL POC Glucose (mg/dL) 138 H 164 H 141 H (75-99) mg/dL AST (14-36) U/L 07/11/18 07/11/18 07/11/18 Range/Units 10:26 10:26 11:53 WBC 13.0 H (3.8-10.6) k/uL Neutrophils # 12.0 H (1.3-7.7) k/uL Lymphocytes # 0.5 L (1.0-4.8) k/uL BUN 21 H (7-17) mg/dL Creatinine 0.39 L (0.52-1.04) mg/dL Glucose 147 H (74-99) mg/dL POC Glucose (mg/dL) 166 H (75-99) mg/dL AST 10 L (14-36) U/L Assessment and Plan Assessment: C. diff colitis Plan: Cont. ABX.diet as tolerated. Colace for stool softener, no plans for surgical intervention
--- NOTE | 2018-07-11 13:03 | P.PN ---
Subjective Progress Note Date: 07/11/18 HPI: This is a 63-year-old female patient who presented to the emergency room with increasing abdominal pain. She had recently been admitted for colitis and duodenitis and had been discharged on oral antibiotics. She had been having some shortness of breath with some occasional wheezing. She was seen in the emergency room and admitted for further evaluation and treatment. She subsequently had lab work done which did reveal that she was positive for C. diff. She was seen by surgery and GI services. Was put on antibiotics. She continued to have some shortness of breath she does have a past medical history positive for asthma and COPD, coronary artery disease, atrial fibrillation, mitral valve prolapse, previous myocardial and correction, GERD and hypertension. The patient used to smoke a pack of cigarettes per day she quit smoking in 2013. She does use medical marijuana in the form of a edibles. Her chest x-ray did show some right lower zone aspiration type pneumonia versus atelectasis as well as emphysema changes. Interval history: 07/05/18-07/07/18- Please see Dr KERRIE Nuñez notes 07/08/2018patient is being seen examined and evaluated today on rounds. She is resting up in bed on 2 L of supplemental oxygen via nasal cannula. The patient states she does use 2L of supplemental oxygen at home. She also uses DuoNeb and the nebulizer machine and does take Qvar inhalers as well. She continues to have some shortness of breath with cough but has had no sputum reduction. She denies any abdominal pain, diarrhea or constipation. Afebrile no further complaints. 07/09/18- Please see Dr KERRIE Nuñez notes 07/10/18- patient is being seen examined and evaluated today on rounds. She is resting up in bed on 2 L of supplemental oxygen via nasal cannula. She is afebrile no further complaints. Breathing has been stable, steroids have been tapered. Denies any cough or congestion. Has been tolerating her diet. 07/11/18- patient is being seen examined and evaluated today on rounds. She is resting up in bed on 2 L of supplemental oxygen via nasal cannula. She does complain of some coughing that started last night that feels slightly congested however no sputum production at this time. A chest x-ray was ordered and does show improvement. She is afebrile all labs and reports have been reviewed. Objective - Vital Signs Vital signs: Vital Signs Temp 97.6 F 07/11/18 07:53 Pulse 92 07/11/18 12:06 Resp 16 07/11/18 07:53 BP 126/73 07/11/18 07:53 Pulse Ox 92 L 07/11/18 07:53 Intake & Output 07/10/18 07/11/18 07/11/18 18:59 06:59 18:59 Weight 55 kg Other: Voiding Method Bedside Commode Bedside Commode Bedside Commode # Voids 2 1 # Bowel Movements 1 - Exam GENERAL EXAM: Alert, active, comfortable in no apparent distress. HEAD: Normocephalic. EYES: Normal reaction of pupils, equal size. NOSE: Clear with pink turbinates. THROAT: No erythema or exudates. NECK: No masses, no JVD. CHEST: No chest wall deformity. LUNGS: Equal air entry with no crackles, wheeze, rhonchi or dullness. Bases diminished CVS: S1 and S2 normal with no audible mumurs, regular rhythm. ABDOMEN: No hepatosplenomegaly, normal bowel sounds, no guarding or rigidity. EXTREMITIES: No edema noted, pedal pulses palpable. CENTRAL NERVOUS SYSTEM: No focal deficits, tone is normal in all 4 extremities. - Labs CBC & Chem 7: 07/11/18 10:26 07/11/18 10:26 Labs: Abnormal Lab Results - Last 24 Hours (Table) 07/10/18 07/10/18 07/11/18 Range/Units 17:00 20:59 07:32 WBC (3.8-10.6) k/uL Neutrophils # (1.3-7.7) k/uL Lymphocytes # (1.0-4.8) k/uL BUN (7-17) mg/dL Creatinine (0.52-1.04) mg/dL Glucose (74-99) mg/dL POC Glucose (mg/dL) 138 H 164 H 141 H (75-99) mg/dL AST (14-36) U/L 07/11/18 07/11/18 07/11/18 Range/Units 10:26 10:26 11:53 WBC 13.0 H (3.8-10.6) k/uL Neutrophils # 12.0 H (1.3-7.7) k/uL Lymphocytes # 0.5 L (1.0-4.8) k/uL BUN 21 H (7-17) mg/dL Creatinine 0.39 L (0.52-1.04) mg/dL Glucose 147 H (74-99) mg/dL POC Glucose (mg/dL) 166 H (75-99) mg/dL AST 10 L (14-36) U/L Assessment and Plan Assessment: Assessment C. difficile colitis COPD without exacerbation Chronic hypoxemia, dependent on home O2 at all times Chronic persistent moderate asthma without exacerbation Possible aspiration type pneumonia, covered with Flagyl Protein calorie malnutrition, moderate Plan Medications have been reviewed and will be continued as ordered. Chest x-ray reviewed Continue with antibiotics Steroids tapered Continue with pulmonary hygiene, coughing and deep breathing exercises, and supportive care. Supplemental oxygen to maintain oxygen saturations of 92% or better. Continue nebulizer treatments. Initiate and encourage incentive spirometer GI and DVT prophylaxis. Increase activity as tolerated We will continue to monitor labs/results and adjust treatment as necessary. Further recommendations pending. I, the signing physician performed an examination of the patient, discussed and directed their management with the nurse practitioner. I have reviewed the nurse practitioner's note and agree with the documented findings, orders and plan of care.
[2018-07-11] MEDS: guaiFENesin 600 MG TABLET.ER PO SCH ×2 (14:36→20:43)
[2018-07-11 17:30] LABS: Glucose,Whole Blood 133 mg/dL (75-99)
[2018-07-11] MEDS ORDERED: methylPREDNISolone SOD SUCCI 125 MG/2 ML VIAL IV STA (18:20)
[2018-07-11] MEDS: predniSONE 20 MG TAB PO SCH (19:26)
[2018-07-11] MEDS: MELATONIN 5 MG TABLET PO SCH (20:40)
[2018-07-11] MEDS: DILTIAZEM CD 240 MG CAP.ER.24H PO SCH (20:42)
[2018-07-11] MEDS: PRAMIPEXOLE 0.5 MG TAB PO SCH (20:43)
[2018-07-11] MEDS: MONTELUKAST 10 MG TAB PO SCH (20:43)
[2018-07-11 20:51] LABS: Glucose,Whole Blood 144 mg/dL (75-99)
[2018-07-11] MEDS: ALPRAZolam 0.25 MG TAB PO PRN (22:23)
[2018-07-12] MEDS: VANCOMYCIN ORAL SOLUTION 250 MG/5 ML BOTTLE PO SCH ×3 (00:33→12:35)
[2018-07-12] MEDS: metroNIDAZOLE 500 MG TAB PO SCH ×2 (00:33→09:46)
[2018-07-12] MEDS: CHERRY FLAVOR 60 ML BOTTLE PO SCH ×3 (00:34→12:36)
[2018-07-12] MEDS: HYDROmorphone 1 MG/ML 1 ML SYRINGE IVP PRN ×4 (00:36→12:26)
[2018-07-12] MEDS: IPRATROPIUM-ALBUTEROL 3 ML NEB INHALATION PRN (03:55)
[2018-07-12] MEDS: HYDROcodone/APAP 10-325MG 1 EACH TAB PO PRN ×2 (04:15→11:24)
[2018-07-12] MEDS: ONDANSETRON ODT 4 MG TAB PO PRN (06:06)
[2018-07-12] MEDS: BUDESONIDE 0.5 MG/2 ML NEBU INHALATION SCH (07:14)
[2018-07-12] MEDS: IPRATROPIUM-ALBUTEROL 3 ML NEB INHALATION SCH ×2 (07:14→11:10)
[2018-07-12 07:37] LABS: Glucose,Whole Blood 131 mg/dL (75-99)
[2018-07-12 07:42] VITALS: BP 122/69; RESP 20; TEMP 97.6
[2018-07-12 09:42] LABS: ALT 17 U/L (9-52); AST 10 U/L (14-36); Albumin 3.6 g/dL (3.5-5.0); Alkaline Phosphatase 53 U/L (38-126); Anion Gap 8 mmol/L; Blood Urea Nitrogen 24 mg/dL (7-17); Calcium 9.5 mg/dL (8.4-10.2); Carbon Dioxide 34 mmol/L (22-30); Chloride 99 mmol/L (98-107); Glucose 128 mg/dL (74-99); Potassium 4.4 mmol/L (3.5-5.1); Sodium 141 mmol/L (137-145); Total Bilirubin 0.2 mg/dL (0.2-1.3); Total Protein 6.2 g/dL (6.3-8.2)
[2018-07-12] MEDS: DOCUSATE 100 MG CAP PO SCH (09:43)
[2018-07-12] MEDS: INSULIN ASPART 100 UNIT/ML 1 ML 10 ML VIAL SQ SCH ×2 (09:43→12:34)
[2018-07-12] MEDS: HEPARIN SODIUM,PORCINE 5,000 UNIT/ML 1 ML VIAL SQ SCH ×2 (09:45→09:48)
[2018-07-12] MEDS: guaiFENesin 600 MG TABLET.ER PO SCH (09:46)
[2018-07-12] MEDS: predniSONE 20 MG TAB PO SCH (09:46)
[2018-07-12] MEDS: PANTOPRAZOLE 40 MG TABLET PO SCH (09:46)
[2018-07-12 09:49] LABS: Basophils % (A) 0 %; Eosinophils % (A) 0 %; HGB 11.3 gm/dL (11.4-16.0); Hypochromasia Slight; Lymphocytes # (A) 0.6 k/uL (1.0-4.8); Lymphocytes % (A) 5 %; MCH 29.8 pg (25.0-35.0); MCHC 31.5 g/dL (31.0-37.0); MCV 94.9 fL (80.0-100.0); Mean Platelet Volume 7.2; Monocytes # (A) 0.5 k/uL (0-1.0); Monocytes % (A) 4 %; Neutrophils % (A) 89 %; Platelet Count 365 k/uL (150-450); RDW 15.1 % (11.5-15.5); WBC 11.2 k/uL (3.8-10.6)
[2018-07-12] MEDS: ALPRAZolam 0.25 MG TAB PO PRN (09:51)
--- NOTE | 2018-07-12 11:22 | P.DS ---
Providers Date of admission: 07/03/18 20:49 Expected date of discharge: 07/12/18 Attending physician: Ning Lock Consults: 07/03/18 20:57 Consult Physician Stat Consulting Provider: Ashley Castillo Consult Reason/Comments: Colitis Do you want consulting provider notified?: Yes 07/05/18 13:12 Consult Physician Routine Consulting Provider: Jey Webster Consult Reason/Comments: follows outpatient. advance COPD Do you want consulting provider notified?: Yes Primary care physician: Ning Hayward Hospital Course: Discharge diagnosis 1. Abdominal pain with nausea and vomiting related to C. diff colitis. CT of abdomen completed showing wall thickening of the proximal sigmoid colon suggestive of colitis that is worse in the computed tomography scan. There is minimal straightening at the umbilical correlate for cellulitis. Cyst on the left ovary. There is mildly dilated biliary tree that is slightly increased compared to last exam. Surgical services have been consulted. Patient also positive for C. diff. Patient currently nothing by mouth. maintained on Vanco and Flagyl. Per surgical services continue antibiotics no complaints for acute surgical intervention at this time. Per GI services continue current regime. patient started on soft diet. Patient did have soft BM this a.m. with no pain. Per surgical services no plan for surgery. Patient will be DC'd home on oral Vanco for an additional 7 days 2. History of proximal atrial fibrillation. According to medical records she is currently not on anticoagulation due to history of bleeding 3. History of COPD. Patient is home O2 dependent. Chest x-ray completed showing right lower lobe atelectasis or pneumonia and associated fusion. Emphysema. Additional findings above. Dr. KERRIE Webster has been consulted for pulmonary services. Per Pulmonary services may be due to early aspiration versus atelectasis for which she is covered with flagyl. IV Solu-Medrol has been added per pulmonary services. Repeat chest x-ray completed showing resolution of the previously been right basilar opacity. No new focal consolidation. Radiographic sequela of COPD. Patient will be DC'd home on prednisone taper. Patient advised to follow-up with pulmonary services. 4. History of essential hypertension 5. History of chronic back pain 6. History of coronary artery disease 7. Left ovary cyst. Patient to follow-up closely with PCP 8. Anxiety. Xanax has been added. Patient will be DC'd home on 3 day supply of Xanax. Patient advised to follow-up with PCP for further prescription Hospital Course This is a 63-year-old female patient who presented to the emergency room with complaints of abdominal pain. Patient was recently admitted in early June for colitis duodenitis patient was discharged at that time with 10 day oral antibiotics. Patient states during that time she still had mild abdominal pain. Patient states that she completed her antibiotics she then developed severe abdominal pain with nausea and vomiting. Past medical history includes atrial fibrillation, coronary artery disease, home O2, heart failure, COPD, GERD , hypertension, liver disease, myocardial infarction, mitral valve prolapse, osteoarthritis anxiety, depression and PTSD. Per patient Records patient is not on anticoagulation for her Atrial Fibrillation due to history of bleeding. Patient did have a positive C. diff stool sample. CT of abdomen and pelvis completed showing wall thickening of the proximal sigmoid colon suggestive colitis that is worse and last computed tomography scan. There is minimal fat stranding at the umbilical hernia could relate to focal cellulitis and appears unchanged. Cyst on the left ovary. There is mildly dilated busily treated slightly increased compared to last exam. EEG completed showing normal sinus rhythm. Nonspecific T-wave abnormality. Initial white blood cell elevated at 17.8. Patient also having low-grade temp at 100.8. Patient currently on Rocephin, Flagyl and oral Vanco. Surgical services have been consulted. At this time patient denies chest pain or shortness of breath. Patient is complaining of diffuse abdominal tenderness. Patient denies any urinary burning or frequency. On 07/05/2018 patient is currently resting in bed. This time patient denies chest pain or shortness of breath. Patient still complaining of some abdominal pain. Patient denies any urinary burning or frequency. Patient remains on IV Flagyl and oral Vanco. Physical therapy will be consulted due to increased weakness On 07/06/2018 patient is resting comfortably. She denies chest pain or shortness of breath. She is still complaining of abdominal pain. Patient denies any urinary burning or frequency. Patient remains on IV Flagyl and oral Vanco. Surgery is following patient is still nothing by mouth On 07/07/2018 patient was seen and examined on the medical floor she is alert and oriented 3 she is still complaining of abdominal pain otherwise she denies any complaints there is no chest pain no shortness of breath no cough no fever or chills no nausea or vomiting and no urinary symptoms On 07/08/2018 patient is alert and oriented 3. Patient is some improvement with abdominal pain. Denies nausea vomiting diarrhea or constipation at this time. Patient has been tolerating a soft diet. Patient denies chest pain or shortness of breath. Patient is any urinary burning or frequency On 07/09/2018 patient is alert and oriented 3. Patient does state improvement with abdominal pain. Patient is complaining of increased shortness of breath. Dr. Webster following for pulmonary at this time patient denies chest pain or shortness of breath. Patient denies any nausea vomiting or diarrhea. Patient denies any urinary burning or frequency. On 07/10/2018 patient is alert and oriented 3. Patient states improvement with her shortness of breath and abdominal pain. Patient is planning to increase her activity level today. At this time patient denies chest pain or shortness of breath. Patient denies nausea vomiting or diarrhea. Patient denies any urinary burning or frequency On 07/11/2018 patient is currently resting comfortably in bed. Patient states she did have soft large BM this a.m. no pain or diarrhea. Patient is complaining of increased shortness of breath. Pulmonary services are following a chest x-ray has been ordered. At this time patient denies chest pain. Patient denies nausea vomiting or diarrhea. Patient denies any urinary burning or frequency 07/12/2018 at this time patient denies any chest pain or shortness breath. Patient denies nausea vomiting or diarrhea. Patient did have soft nonpitting BM this a.m. Patient has been tolerating diet. Patient will be DC'd home on oral Vanco for an additional 7 days. Patient also will be DC'd home on prednisone taper for pulmonary services. Patient advised to follow-up closely with PCP and pulmonary services for further evaluation. Abdominal CT showing left ovarian cyst. Patient advised to follow-up closely with PCP in regards to further evaluation of this. I performed an examination of the patient and discussed their management with the Nurse Practitioner. I have reviewed the Nurse Practitioner's notes and agree with the documented findings and plan of care Patient Condition at Discharge: Stable Plan - Discharge Summary Discharge Rx Participant: No New Discharge Prescriptions: New ALPRAZolam [Xanax] 0.25 mg PO Q8HR PRN 3 Days #9 tab PRN Reason: Anxiety predniSONE 10 mg PO DIRECTED #30 tab Vancomycin Oral Solution 250 mg PO Q6H 7 Days #140 ml Continue Pramipexole [Mirapex] 0.5 mg PO HS Albuterol Inhaler [Ventolin Hfa Inhaler] 1 - 2 puff INHALATION RT-Q6H PRN PRN Reason: Shortness Of Breath Diltiazem Cd [Cardizem CD] 240 mg PO HS Cholecalciferol [Vitamin D3] 2,000 unit PO HS Omeprazole 20 mg PO BID Beclomethasone Dipropionate [Qvar 80 mcg] 2 puff INHALATION RT-BID Montelukast [Singulair] 10 mg PO HS #30 tab Ipratropium-Albuterol Nebulize [Duoneb 0.5 mg-3 mg/3 ml Soln] 3 ml INHALATION RT-QID PRN PRN Reason: Shortness Of Breath Budesonide [Pulmicort Flexhaler] 2 puff INHALATION RT-BID Ondansetron Odt [Zofran ODT] 4 mg PO Q8HR PRN #20 tab PRN Reason: Nausea HYDROcodone/APAP 10-325MG [[place] 10-325] 1 tab PO Q6H PRN #12 tab PRN Reason: Pain Melatonin 10 mg PO HS Discharge Medication List Pramipexole [Mirapex] 0.5 mg PO HS 09/28/15 [History] Albuterol Inhaler [Ventolin Hfa Inhaler] 1 - 2 puff INHALATION RT-Q6H PRN [History] Cholecalciferol [Vitamin D3] 2,000 unit PO HS 02/02/16 [History] Diltiazem Cd [Cardizem CD] 240 mg PO HS 02/02/16 [History] Omeprazole 20 mg PO BID 02/02/16 [History] Beclomethasone Dipropionate [Qvar 80 mcg] 2 puff INHALATION RT-BID 11/14/16 [ History] Montelukast [Singulair] 10 mg PO HS #30 tab 02/12/17 [Rx] Budesonide [Pulmicort Flexhaler] 2 puff INHALATION RT-BID 05/31/18 [History] Ipratropium-Albuterol Nebulize [Duoneb 0.5 mg-3 mg/3 ml Soln] 3 ml INHALATION RT -QID PRN 05/31/18 [History] Ondansetron Odt [Zofran ODT] 4 mg PO Q8HR PRN #20 tab 05/31/18 [Rx] HYDROcodone/APAP 10-325MG [[place] 10-325] 1 tab PO Q6H PRN #12 tab 06/20/18 [Rx] Melatonin 10 mg PO HS 07/03/18 [History] ALPRAZolam [Xanax] 0.25 mg PO Q8HR PRN 3 Days #9 tab 07/12/18 [Rx] Vancomycin Oral Solution 250 mg PO Q6H 7 Days #140 ml 07/12/18 [Rx] predniSONE 10 mg PO DIRECTED #30 tab 07/12/18 [Rx] Follow up Appointment(s)/Referral(s): Sukhwinder Macedo MD [STAFF PHYSICIAN] - 3 Weeks Ning Lock MD [Primary Care Provider] - 1-2 days Jey Webster MD [STAFF PHYSICIAN] - 1 Week Patient Instructions/Handouts: Aspiration Pneumonia (DC), C Diff (Clostridium Difficile) Infection (DC) Activity/Diet/Wound Care/Special Instructions: Low fiber diet Activity as tolerated Oxygen via nasal cannula Discharge Disposition: HOME SELF-CARE
[2018-07-12 11:23] VITALS: PULSE 80
[2018-07-12 11:53] LABS: Glucose,Whole Blood 180 mg/dL (75-99)
--- NOTE | 2018-07-12 15:22 | P.PN ---
Subjective Progress Note Date: 07/12/18 HPI: This is a 63-year-old female patient who presented to the emergency room with increasing abdominal pain. She had recently been admitted for colitis and duodenitis and had been discharged on oral antibiotics. She had been having some shortness of breath with some occasional wheezing. She was seen in the emergency room and admitted for further evaluation and treatment. She subsequently had lab work done which did reveal that she was positive for C. diff. She was seen by surgery and GI services. Was put on antibiotics. She continued to have some shortness of breath she does have a past medical history positive for asthma and COPD, coronary artery disease, atrial fibrillation, mitral valve prolapse, previous myocardial and correction, GERD and hypertension. The patient used to smoke a pack of cigarettes per day she quit smoking in 2013. She does use medical marijuana in the form of a edibles. Her chest x-ray did show some right lower zone aspiration type pneumonia versus atelectasis as well as emphysema changes. Interval history: 07/05/18-07/07/18- Please see Dr KERRIE Nuñez notes 07/08/2018patient is being seen examined and evaluated today on rounds. She is resting up in bed on 2 L of supplemental oxygen via nasal cannula. The patient states she does use 2L of supplemental oxygen at home. She also uses DuoNeb and the nebulizer machine and does take Qvar inhalers as well. She continues to have some shortness of breath with cough but has had no sputum reduction. She denies any abdominal pain, diarrhea or constipation. Afebrile no further complaints. 07/09/18- Please see Dr KERRIE Nuñez notes 07/10/18- patient is being seen examined and evaluated today on rounds. She is resting up in bed on 2 L of supplemental oxygen via nasal cannula. She is afebrile no further complaints. Breathing has been stable, steroids have been tapered. Denies any cough or congestion. Has been tolerating her diet. 07/11/18- patient is being seen examined and evaluated today on rounds. She is resting up in bed on 2 L of supplemental oxygen via nasal cannula. She does complain of some coughing that started last night that feels slightly congested however no sputum production at this time. A chest x-ray was ordered and does show improvement. She is afebrile all labs and reports have been reviewed. 06/11/2018patient is being seen examined and evaluated today on rounds. She continues on 2 L of supplemental oxygen via nasal cannula which is what her home doses. Her breathing has improved. She is being prepared for discharge today. All labs and reports have been reviewed. Breathing is at baseline. Objective - Vital Signs Vital signs: Vital Signs Temp 97.6 F 07/12/18 07:00 Pulse 80 07/12/18 11:23 Resp 20 07/12/18 07:00 BP 122/69 07/12/18 07:00 Pulse Ox 96 07/12/18 07:00 Intake & Output 07/11/18 07/12/18 07/12/18 18:59 06:59 18:59 Intake Total 200 Balance 200 Weight 55 kg Intake: Oral 200 Other: Voiding Method Toilet # Voids 3 2 # Bowel Movements 1 - Exam GENERAL EXAM: Alert, active, comfortable in no apparent distress. HEAD: Normocephalic. EYES: Normal reaction of pupils, equal size. NOSE: Clear with pink turbinates. THROAT: No erythema or exudates. NECK: No masses, no JVD. CHEST: No chest wall deformity. LUNGS: Equal air entry with no crackles, wheeze, rhonchi or dullness. Bases diminished CVS: S1 and S2 normal with no audible mumurs, regular rhythm. ABDOMEN: No hepatosplenomegaly, normal bowel sounds, no guarding or rigidity. EXTREMITIES: No edema noted, pedal pulses palpable. CENTRAL NERVOUS SYSTEM: No focal deficits, tone is normal in all 4 extremities. - Labs CBC & Chem 7: 07/12/18 08:47 07/12/18 08:47 Labs: Abnormal Lab Results - Last 24 Hours (Table) 07/11/18 07/11/18 07/12/18 Range/Units 17:25 20:50 07:28 WBC (3.8-10.6) k/uL Hgb (11.4-16.0) gm/dL Neutrophils # (1.3-7.7) k/uL Lymphocytes # (1.0-4.8) k/uL Carbon Dioxide (22-30) mmol/L BUN (7-17) mg/dL Creatinine (0.52-1.04) mg/dL Glucose (74-99) mg/dL POC Glucose (mg/dL) 133 H 144 H 131 H (75-99) mg/dL AST (14-36) U/L Total Protein (6.3-8.2) g/dL 07/12/18 07/12/18 07/12/18 Range/Units 08:47 08:47 11:49 WBC 11.2 H (3.8-10.6) k/uL Hgb 11.3 L (11.4-16.0) gm/dL Neutrophils # 10.0 H (1.3-7.7) k/uL Lymphocytes # 0.6 L (1.0-4.8) k/uL Carbon Dioxide 34 H (22-30) mmol/L BUN 24 H (7-17) mg/dL Creatinine 0.36 L (0.52-1.04) mg/dL Glucose 128 H (74-99) mg/dL POC Glucose (mg/dL) 180 H (75-99) mg/dL AST 10 L (14-36) U/L Total Protein 6.2 L (6.3-8.2) g/dL Assessment and Plan Assessment: Assessment C. difficile colitis COPD without exacerbation Chronic hypoxemia, dependent on home O2 at all times Chronic persistent moderate asthma without exacerbation Possible aspiration type pneumonia, covered with Flagyl Protein calorie malnutrition, moderate Plan Patient is cleared for discharge from pulmonary standpoint Patient will require steroid taper Medications have been reviewed and will be continued as ordered. Chest x-ray reviewed Continue with antibiotics Continue with pulmonary hygiene, coughing and deep breathing exercises, and supportive care. Supplemental oxygen to maintain oxygen saturations of 92% or better. Continue nebulizer treatments. Initiate and encourage incentive spirometer GI and DVT prophylaxis. Increase activity as tolerated We will continue to monitor labs/results and adjust treatment as necessary. Further recommendations pending. I, the signing physician performed an examination of the patient, discussed and directed their management with the nurse practitioner. I have reviewed the nurse practitioner's note and agree with the documented findings, orders and plan of care.
== END 2018-07-12 13:41 | disposition home or self-care (01) | DRG 371 ==
LOC: EC 17:33 → 4MS4W 20:49
PROVIDERS: ADMIT Internal Medicine; ATTEND Internal Medicine
DX: A04.72 Enterocolitis due to Clostridium difficile, not specified as recurrent (principal); J69.0 Pneumonitis due to inhalation of food and vomit; E44.0 Moderate protein-calorie malnutrition; I11.0 Hypertensive heart disease with heart failure; I50.9 Heart failure, unspecified; J43.9 Emphysema, unspecified; I48.0 Paroxysmal atrial fibrillation; M41.9 Scoliosis, unspecified; J45.40 Moderate persistent asthma, uncomplicated; K21.9 Gastro-esophageal reflux disease without esophagitis; I25.10 Atherosclerotic heart disease of native coronary artery without angina pectoris; I34.1 Nonrheumatic mitral (valve) prolapse; B19.20 Unspecified viral hepatitis C without hepatic coma; M19.90 Unspecified osteoarthritis, unspecified site; K58.9 Irritable bowel syndrome, unspecified; M81.0 Age-related osteoporosis without current pathological fracture; N83.202 Unspecified ovarian cyst, left side; K42.9 Umbilical hernia without obstruction or gangrene; R91.8 Other nonspecific abnormal finding of lung field; G89.29 Other chronic pain; M54.9 Dorsalgia, unspecified; E16.2 Hypoglycemia, unspecified; F41.9 Anxiety disorder, unspecified; R09.02 Hypoxemia; I25.2 Old myocardial infarction; Z99.81 Dependence on supplemental oxygen; Z68.23 Body mass index [BMI] 23.0-23.9, adult; Z79.51 Long term (current) use of inhaled steroids; Z79.899 Other long term (current) drug therapy; Z87.891 Personal history of nicotine dependence; Z85.41 Personal history of malignant neoplasm of cervix uteri; Z87.81 Personal history of (healed) traumatic fracture; Z90.49 Acquired absence of other specified parts of digestive tract; Z98.891 History of uterine scar from previous surgery; Z87.19 Personal history of other diseases of the digestive system; Z86.59 Personal history of other mental and behavioral disorders; Z87.440 Personal history of urinary (tract) infections; Z98.49 Cataract extraction status, unspecified eye; Z88.2 Allergy status to sulfonamides; Z88.8 Allergy status to other drugs, medicaments and biological substances; Z82.49 Family history of ischemic heart disease and other diseases of the circulatory system; Z80.3 Family history of malignant neoplasm of breast; Z80.8 Family history of malignant neoplasm of other organs or systems; Z80.7 Family history of other malignant neoplasms of lymphoid, hematopoietic and related tissues; Z80.0 Family history of malignant neoplasm of digestive organs; Z80.1 Family history of malignant neoplasm of trachea, bronchus and lung; Z81.1 Family history of alcohol abuse and dependence; Z83.79 Family history of other diseases of the digestive system
CPT/HCPCS: 36415; 71046; 74177; 80053; 81003; 82150; 82272; 83036; 83605; 83690; 83735; 84132; 84484; 85025; 85610; 85730; 87040; 87045; 87046; 87324; 87502; 93005; 94640; 94760; 96361; 96365; 96367; 96375; 99285

== ENCOUNTER 2018-11-09 17:37 | Observation (INO) | payer OTHER ==
[2018-11-09] MEDS ORDERED: methylPREDNISolone SOD SUCCI 125 MG/2 ML VIAL IV STA (18:18)
[2018-11-09] MEDS ORDERED: ALBUTEROL NEBULIZED 2.5 MG/3 ML INHALATION STA ×2 (18:18)
--- NOTE | 2018-11-09 19:01 | XR ---
EXAMINATION TYPE: XR chest 2V DATE OF EXAM: 11/09/2018 COMPARISON: 07/11/[address] of 03/18/2018 HISTORY: Shortness of breath with history of coronary artery disease, congestive heart failure, TECHNIQUE: Frontal and lateral views of the chest are obtained. FINDINGS: There is pulmonary hyperinflation with flattening of the diaphragms, increased anterior po sterior diameter of the chest and increased retrosternal airspace also compatible with underlying [employer] D. There is also enlargement and main pulmonary artery suggesting pulmonary arterial hypertension. Th e subcentimeter pulmonary nodules are not seen well on chest x-ray as these were seen on the CT of 03/18/2018. No new focal consolidation, pleural effusion or pneumothorax. No acute osseous pathology. Gen eralized demineralization is seen throughout the osseous structures. Cardia mediastinal silhouette is within normal limits. IMPRESSION: Extensive changes of COPD. No acute process. The known pulmonary nodules seen on the angel[place] or CT are not visualized radiographically.
[2018-11-09 19:34] LABS: Basophils % (A) 1 %; Eosinophils # (A) 0.2 k/uL (0-0.7); Eosinophils % (A) 3 %; HCT 43.9 % (34.0-46.0); HGB 14.2 gm/dL (11.4-16.0); Lymphocytes # (A) 2.3 k/uL (1.0-4.8); Lymphocytes % (A) 31 %; MCH 29.2 pg (25.0-35.0); MCHC 32.3 g/dL (31.0-37.0); MCV 90.5 fL (80.0-100.0); Mean Platelet Volume 7.6; Monocytes # (A) 0.7 k/uL (0-1.0); Monocytes % (A) 9 %; Neutrophils % (A) 55 %; Platelet Count 211 k/uL (150-450); RBC 4.85 m/uL (3.80-5.40); RDW 13.8 % (11.5-15.5); WBC 7.4 k/uL (3.8-10.6)
--- NOTE | 2018-11-09 19:55 | US ---
EXAMINATION TYPE: US venous doppler duplex UE RT DATE OF EXAM: 11/09/2018 COMPARISON: NONE CLINICAL HISTORY: Pain. Edema and pain right arm for 2 months SIDE PERFORMED: right Grayscale, color doppler, spectral doppler imaging performed of the deep veins of the right upper ext remity. There is normal flow, compressibility and vascular waveforms. Right Arm: No evidence of DVT IMPRESSION: No sonographic evidence of deep venous thrombosis within the right upper extremity.
[2018-11-09 19:56] LABS: ALT 23 U/L (9-52); AST 25 U/L (14-36); Albumin 4.8 g/dL (3.5-5.0); Alkaline Phosphatase 99 U/L (38-126); Anion Gap 12 mmol/L; Blood Urea Nitrogen 15 mg/dL (7-17); Calcium 10.1 mg/dL (8.4-10.2); Carbon Dioxide 28 mmol/L (22-30); Chloride 98 mmol/L (98-107); Glucose 85 mg/dL (74-99); Magnesium 1.8 mg/dL (1.6-2.3); Sodium 138 mmol/L (137-145); Total Bilirubin 0.5 mg/dL (0.2-1.3)
[2018-11-09] MEDS ORDERED: MORPHINE SULFATE 4 MG/ML SYRINGE IVP STA (20:03)
[2018-11-09] MEDS ORDERED: IPRATROPIUM-ALBUTEROL 3 ML NEB INHALATION PRN (20:04)
[2018-11-09] MEDS ORDERED: ONDANSETRON ODT 4 MG TAB PO PRN (20:06)
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
[2018-11-09] MEDS: MONTELUKAST 10 MG TAB PO SCH (22:54)
[2018-11-09] MEDS: DILTIAZEM CD 240 MG CAP.ER.24H PO SCH (22:55)
[2018-11-09] MEDS: HYDROcodone/APAP 10-325MG 1 EACH TAB PO PRN (22:58)
[2018-11-10] MEDS: HYDROcodone/APAP 10-325MG 1 EACH TAB PO PRN ×4 (04:51→23:44)
[2018-11-10] MEDS: IPRATROPIUM-ALBUTEROL 3 ML NEB INHALATION SCH ×4 (08:38→19:30)
[2018-11-10] MEDS ORDERED: predniSONE 20 MG TAB PO SCH (09:00)
[2018-11-10] MEDS: HYDROmorphone 0.5 MG/0.5 ML SYRINGE IVP PRN ×6 (10:04→22:43)
[2018-11-10] MEDS ORDERED: IPRATROPIUM-ALBUTEROL 3 ML NEB INHALATION PRN (11:02)
[2018-11-10] MEDS: ALPRAZolam 0.25 MG TAB PO PRN ×2 (11:21→20:22)
[2018-11-10] MEDS: INSULIN ASPART (NovoLOG) 100 UNIT/ML VIAL SQ SCH ×3 (12:05→21:39)
[2018-11-10] MEDS ORDERED: PANTOPRAZOLE 40 MG TABLET PO STA (12:06)
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
[2018-11-10] MEDS: methylPREDNISolone SOD SUCCI 125 MG/2 ML VIAL IV SCH ×3 (12:15→23:51)
[2018-11-10] MEDS: CYCLOBENZAPRINE 10 MG TAB PO PRN (13:17)
[2018-11-10 17:05] LABS: Glucose,Whole Blood 114 mg/dL (75-99)
[2018-11-10] MEDS ORDERED: PANTOPRAZOLE 40 MG TABLET PO SCH (17:30)
[2018-11-10] MEDS: BUDESONIDE 0.5 MG/2 ML NEBU INHALATION SCH (19:30)
[2018-11-10 20:31] LABS: Glucose,Whole Blood 183 mg/dL (75-99)
[2018-11-10] MEDS: MELATONIN 5 MG TABLET PO SCH (21:31)
[2018-11-10] MEDS: CHOLECALCIFEROL 1,000 UNIT TAB PO SCH (21:31)
[2018-11-10] MEDS: PRAMIPEXOLE 0.5 MG TAB PO SCH (21:31)
[2018-11-10] MEDS: PANTOPRAZOLE 40 MG TABLET PO SCH (21:31)
[2018-11-10] MEDS: DILTIAZEM CD 240 MG CAP.ER.24H PO SCH (21:31)
[2018-11-10] MEDS: MONTELUKAST 10 MG TAB PO SCH (21:32)
[2018-11-10] MEDS: GABAPENTIN 100 MG CAP PO SCH (21:32)
[2018-11-10] MEDS: HEPARIN SODIUM,PORCINE 5,000 UNIT/ML 1 ML VIAL SQ SCH (21:36)
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
[2018-11-11] MEDS: HYDROmorphone 0.5 MG/0.5 ML SYRINGE IVP PRN ×7 (02:52→22:03)
[2018-11-11] MEDS: CYCLOBENZAPRINE 10 MG TAB PO PRN ×2 (02:58→15:33)
[2018-11-11] MEDS: methylPREDNISolone SOD SUCCI 125 MG/2 ML VIAL IV SCH ×4 (05:23→23:50)
[2018-11-11] MEDS: ALPRAZolam 0.25 MG TAB PO PRN ×2 (05:23→21:05)
[2018-11-11] MEDS: HYDROcodone/APAP 10-325MG 1 EACH TAB PO PRN ×3 (06:30→20:57)
[2018-11-11] MEDS: IPRATROPIUM-ALBUTEROL 3 ML NEB INHALATION SCH ×4 (06:50→19:07)
[2018-11-11] MEDS: BUDESONIDE 0.5 MG/2 ML NEBU INHALATION SCH ×2 (06:50→19:07)
[2018-11-11 07:24] LABS: Glucose,Whole Blood 130 mg/dL (75-99)
[2018-11-11] MEDS: INSULIN ASPART (NovoLOG) 100 UNIT/ML VIAL SQ SCH ×4 (07:58→21:06)
[2018-11-11] MEDS: GABAPENTIN 100 MG CAP PO SCH ×2 (08:05→21:05)
[2018-11-11] MEDS: PANTOPRAZOLE 40 MG TABLET PO SCH ×2 (08:05→20:57)
[2018-11-11] MEDS: HEPARIN SODIUM,PORCINE 5,000 UNIT/ML 1 ML VIAL SQ SCH ×3 (08:05→21:01)
[2018-11-11] MEDS: ASCORBIC ACID 500 MG TAB PO SCH (08:05)
[2018-11-11 11:31] LABS: Basophils % (A) 0 %; Eosinophils % (A) 0 %; HCT 39.4 % (34.0-46.0); Lymphocytes # (A) 0.6 k/uL (1.0-4.8); Lymphocytes % (A) 6 %; MCH 28.4 pg (25.0-35.0); MCHC 30.6 g/dL (31.0-37.0); MCV 92.8 fL (80.0-100.0); Mean Platelet Volume 7.5; Monocytes # (A) 0.3 k/uL (0-1.0); Monocytes % (A) 3 %; Neutrophils % (A) 90 %; Platelet Count 230 k/uL (150-450); RBC 4.24 m/uL (3.80-5.40)
[2018-11-11 11:43] LABS: ALT 17 U/L (9-52); AST 15 U/L (14-36); Albumin 4.5 g/dL (3.5-5.0); Alkaline Phosphatase 96 U/L (38-126); Anion Gap 11 mmol/L; Blood Urea Nitrogen 21 mg/dL (7-17); Calcium 9.8 mg/dL (8.4-10.2); Carbon Dioxide 26 mmol/L (22-30); Chloride 102 mmol/L (98-107); Glucose 166 mg/dL (74-99); Potassium 4.6 mmol/L (3.5-5.1); Sodium 139 mmol/L (137-145); Total Bilirubin 0.3 mg/dL (0.2-1.3); Total Protein 7.2 g/dL (6.3-8.2)
[2018-11-11 12:28] LABS: Glucose,Whole Blood 162 mg/dL (75-99)
--- NOTE | 2018-11-11 14:33 | P.PN ---
Subjective Progress Note Date: 11/11/18 Katie Weathers is a 63-year-old female with known history of COPD and chronic hypoxic respiratory failure maintained on home oxygen who presented to [facility] emergency room with worsening shortness of breath over the last few days. 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 In emergency room patient had a chest x-ray that revealed extensive changes of COPD without any acute process, labs were within normal limits, she was started on IV Solu-Medrol and admitted to medical floor, consultation with pulmonary was initiated, complex case manager was also consulted to assess for arrangement for oxygen needs. Patient also has known history of herniated disc and is maintained on [place] for pain management she follows with Dr. Liriano, she is stating that her pain is not well controlled. On 11/11/2018 patient is alert and oriented 3. Patient wheezing has improved. Patient remains on IV Solu-Medrol this time. Patient denies chest pain. Patient still having some shortness of breath with activity. Patient denies nausea vomiting or diarrhea. Patient denies any urinary burning or frequency Objective - Vital Signs Vital signs: Vital Signs Temp 98.4 F 11/11/18 13:55 Pulse 100 11/11/18 13:55 Resp 16 11/11/18 13:55 BP 150/70 11/11/18 13:55 Pulse Ox 94 L 11/11/18 13:55 Intake & Output 11/10/18 11/11/18 11/11/18 18:59 06:59 18:59 Intake Total 1200 800 600 Balance 1200 800 600 Intake: Oral 1200 800 600 Other: Voiding Method Toilet Toilet # Voids 3 0 2 # Bowel Movements 0 0 - Exam Head normocephalic Neck supple Lungs expiratory wheezing Heart regular rate and rhythm S1-S2, no rub or gallop Abdomen is soft nontender nondistended positive bowel sounds no hepatosplenomegaly Extremities no edema Neuro alert and orientated to 3 - Labs CBC & Chem 7: 11/11/18 10:49 11/11/18 10:49 Labs: Abnormal Lab Results - Last 24 Hours (Table) 11/10/18 11/10/18 11/11/18 Range/Units 17:03 20:28 07:16 MCHC (31.0-37.0) g/dL Neutrophils # (1.3-7.7) k/uL Lymphocytes # (1.0-4.8) k/uL BUN (7-17) mg/dL Creatinine (0.52-1.04) mg/dL Glucose (74-99) mg/dL POC Glucose (mg/dL) 114 H 183 H 130 H (75-99) mg/dL 11/11/18 11/11/18 11/11/18 Range/Units 10:49 10:49 12:21 MCHC 30.6 L (31.0-37.0) g/dL Neutrophils # 9.0 H (1.3-7.7) k/uL Lymphocytes # 0.6 L (1.0-4.8) k/uL BUN 21 H (7-17) mg/dL Creatinine 0.40 L (0.52-1.04) mg/dL Glucose 166 H (74-99) mg/dL POC Glucose (mg/dL) 162 H (75-99) mg/dL Assessment and Plan Assessment: #1 acute exacerbation of chronic obstructive pulmonary disease #2 acute on chronic hypoxic respiratory failure #3 herniated disc with chronic pain maintained on opiate for pain management #4 underlying history of hypertension #5 former smoker quit 3 years ago #6 underlying history of anxiety disorder maintained on Xanax DVT prophylaxis heparin. GI prophylaxis Protonix Plan at this time to continue with IV Solu-Medrol and titrate dose down gradually hat body sorter to assess situation to arrange for home oxygen replacement Patient does require home O2 I performed an examination of the patient and discussed their management with the Nurse Practitioner. I have reviewed the Nurse Practitioner's notes and agree with the documented findings and plan of care
--- NOTE | 2018-11-11 16:36 | PN ---
PROGRESS NOTE DATE OF SERVICE: 11/11/2018 Patient is a 63-year-old female who is seen lying in bed, is awake and alert, feeling less short of breath today, is able to get up and ambulate. The patient is hemodynamically stable, afebrile, in no acute distress. PHYSICAL EXAM: Vital signs, temp 98.4, heart rate is 88, respiratory rate 16, blood pressure is 150/70, O2 sats 94% on 2 L O2 via nasal cannula. HEENT: Head is normocephalic, atraumatic. Neck is supple. Trachea is midline. Lungs with expiratory wheezes. HEART: S1, S2 are heard. Not tachycardic. ABDOMEN: Soft. Bowel sounds are heard. Extremities with no edema. Neurologic: Patient is awake and alert. LABS: White count 10.0, hemoglobin 12.0, hematocrit is 39.4 with 230,000 platelets. Sodium is 139, potassium is 4.6, chloride 102, CO2 is 26, anion gap is 11, BUN is 21, creatinine 0.40, glucose is 166, calcium is 9.8, total bilirubin 0.3, AST is 15, ALT is 17, alkaline phosphatase is 96, total protein 7.2, albumin is 4.5. IMAGING: No new imaging to review. IMPRESSION: 1. Severe asthma with chronic obstructive pulmonary disease with acute exacerbation. 2. Lung nodules. PLAN: Continue current medications which have been reviewed with bronchodilators, aerosol steroids and IV steroids at 60 mg q.6 hours. We will change to oral prednisone in the morning, at 60 mg daily. Continue GI and DVT prophylaxis. Continue Singulair. Continue oxygen to maintain sats greater than or equal to 90%. Increase activity as tolerated and we will continue to follow patient closely with you making further changes as necessary. I performed a History & Physical Examination of the patient and discussed their management with nurse practitioner. I reviewed the nurse practitioner's note and agree with the documented findings and plan of care. MMODL / IJN: [id number] /
[2018-11-11 17:20] LABS: Glucose,Whole Blood 163 mg/dL (75-99)
[2018-11-11] MEDS: DILTIAZEM CD 240 MG CAP.ER.24H PO SCH (20:57)
[2018-11-11] MEDS: MONTELUKAST 10 MG TAB PO SCH (20:57)
[2018-11-11] MEDS: PRAMIPEXOLE 0.5 MG TAB PO SCH (20:57)
[2018-11-11] MEDS: CHOLECALCIFEROL 1,000 UNIT TAB PO SCH (20:57)
[2018-11-11] MEDS: MELATONIN 5 MG TABLET PO SCH (20:57)
[2018-11-11 23:13] LABS: Glucose,Whole Blood 172 mg/dL (75-99)
[2018-11-12] MEDS: HYDROmorphone 0.5 MG/0.5 ML SYRINGE IVP PRN ×4 (01:04→13:27)
[2018-11-12] MEDS: methylPREDNISolone SOD SUCCI 125 MG/2 ML VIAL IV SCH (05:37)
[2018-11-12] MEDS: HYDROcodone/APAP 10-325MG 1 EACH TAB PO PRN ×2 (06:16→12:13)
[2018-11-12] MEDS: ALPRAZolam 0.25 MG TAB PO PRN (06:16)
[2018-11-12] MEDS: ASCORBIC ACID 500 MG TAB PO SCH (07:08)
[2018-11-12] MEDS: PANTOPRAZOLE 40 MG TABLET PO SCH (07:08)
[2018-11-12] MEDS: GABAPENTIN 100 MG CAP PO SCH (07:08)
[2018-11-12] MEDS: HEPARIN SODIUM,PORCINE 5,000 UNIT/ML 1 ML VIAL SQ SCH (07:10)
[2018-11-12 07:33] LABS: Glucose,Whole Blood 137 mg/dL (75-99)
[2018-11-12] MEDS: BUDESONIDE 0.5 MG/2 ML NEBU INHALATION SCH (07:43)
[2018-11-12] MEDS: IPRATROPIUM-ALBUTEROL 3 ML NEB INHALATION SCH ×2 (07:43→12:00)
[2018-11-12] MEDS: INSULIN ASPART (NovoLOG) 100 UNIT/ML VIAL SQ SCH ×2 (08:19→12:14)
[2018-11-12] MEDS ORDERED: predniSONE 20 MG TAB PO SCH (09:00)
[2018-11-12] MEDS ORDERED: FLUTICASONE 50MCG/SPRAY NASAL 16GM EA NOSTRIL PRN (10:14)
[2018-11-12 10:59] LABS: Basophils % (A) 0 %; Eosinophils % (A) 0 %; HCT 38.3 % (34.0-46.0); HGB 12.2 gm/dL (11.4-16.0); Hypochromasia Slight; Lymphocytes # (A) 0.4 k/uL (1.0-4.8); Lymphocytes % (A) 4 %; MCV 93.7 fL (80.0-100.0); Mean Platelet Volume 7.7; Monocytes # (A) 0.4 k/uL (0-1.0); Monocytes % (A) 4 %; Neutrophils # (A) 11.1 k/uL (1.3-7.7); Neutrophils % (A) 92 %; Platelet Count 243 k/uL (150-450); RBC 4.09 m/uL (3.80-5.40); RDW 14.1 % (11.5-15.5); WBC 12.1 k/uL (3.8-10.6)
[2018-11-12 11:20] LABS: ALT 34 U/L (9-52); AST 19 U/L (14-36); Albumin 4.2 g/dL (3.5-5.0); Alkaline Phosphatase 105 U/L (38-126); Anion Gap 10 mmol/L; Blood Urea Nitrogen 20 mg/dL (7-17); Calcium 9.4 mg/dL (8.4-10.2); Carbon Dioxide 27 mmol/L (22-30); Chloride 100 mmol/L (98-107); Glucose 178 mg/dL (74-99); Potassium 4.4 mmol/L (3.5-5.1); Sodium 137 mmol/L (137-145); Total Bilirubin 0.3 mg/dL (0.2-1.3); Total Protein 6.8 g/dL (6.3-8.2)
[2018-11-12 11:48] LABS: Glucose,Whole Blood 181 mg/dL (75-99)
[2018-11-12] MEDS: CYCLOBENZAPRINE 10 MG TAB PO PRN (12:16)
[2018-11-12 12:32] VITALS: PULSE 88
--- NOTE | 2018-11-12 14:15 | P.DS ---
Providers Date of admission: 11/09/18 20:15 Expected date of discharge: 11/12/18 Attending physician: Ning Lock Consults: 11/09/18 20:04 Consult Physician Routine Consulting Provider: Jey Webster Consult Reason/Comments: COPD Do you want consulting provider notified?: Yes Primary care physician: Ning Lock [facility] Course: Discharge diagnosis #1 acute exacerbation of chronic obstructive pulmonary disease #2 acute on chronic hypoxic respiratory failure #3 herniated disc with chronic pain maintained on opiate for pain management #4 underlying history of hypertension #5 former smoker quit 3 years ago #6 underlying history of anxiety disorder maintained on Xanax 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 Hospital course Katie Weathers is a 63-year-old female with known history of COPD and chronic hypoxic respiratory failure maintained on home oxygen who presented to [facility] emergency room with worsening shortness of breath over the last few days. Patient follows with Dr. Jose Manuel Webster for dining car hop she has home oxygen through a company called [employer] that recently went out of business, patient was unable to get her oxygen replaced her concentrator was not working well, and she was having worsening shortness of breath and she decided to come to emergency room. In emergency room patient had a chest x-ray that revealed extensive changes of COPD without any acute process, labs were within normal limits, she was started on IV Solu-Medrol and admitted to medical floor, consultation with pulmonary was initiated, outpatient case manager was also consulted to assess for arrangement for oxygen needs. Patient also has known history of herniated disc and is maintained on [place] for pain management she follows with Dr. Liriano, she is stating that her pain is not well controlled. On 11/11/2018 patient is alert and oriented 3. Patient wheezing has improved. Patient remains on IV Solu-Medrol this time. Patient denies chest pain. Patient still having some shortness of breath with activity. Patient denies nausea vomiting or diarrhea. Patient denies any urinary burning or frequency On 11/12/2018 patient is alert and oriented 3. Patient is very eager to go home. She has been cleared by pulmonary services for discharge. Patient will be DC'd home on prednisone taper. Patient also has home O2 arranged. Lexapro for muscle spasms and back. Patient denies chest pain or shortness breath. Patient denies nausea vomiting or diarrhea. Patient denies any urinary burning or frequency I performed an examination of the patient and discussed their management with the Nurse Practitioner. I have reviewed the Nurse Practitioner's notes and agree with the documented findings and plan of care Patient Condition at Discharge: Stable Plan - Discharge Summary Discharge Rx Participant: Yes New Discharge Prescriptions: New Fluticasone Nasal [place] [Flonase Nasal [place]] 2 spray EA NOSTRIL DAILY PRN #1 bottle PRN Reason: Allergy Symptoms predniSONE 10 mg PO DIRECTED #48 tab Cyclobenzaprine [Flexeril] 10 mg PO BID PRN #6 tab PRN Reason: Muscle Spasm Continue Pramipexole [Mirapex] 0.5 mg PO HS Diltiazem Cd [Cardizem CD] 240 mg PO HS Cholecalciferol [Vitamin D3] 2,000 unit PO HS Omeprazole 20 mg PO BID Beclomethasone Dipropionate [Qvar 80 mcg] 2 puff INHALATION RT-BID Montelukast [Singulair] 10 mg PO HS #30 tab Ipratropium-Albuterol Nebulize [Duoneb 0.5 mg-3 mg/3 ml Soln] 3 ml INHALATION RT-QID PRN PRN Reason: Shortness Of Breath Budesonide [Pulmicort Flexhaler] 2 puff INHALATION RT-BID HYDROcodone/APAP 10-325MG [[place] 10-325] 1 tab PO Q6H PRN #12 tab PRN Reason: Pain Melatonin 10 mg PO HS ALPRAZolam [Xanax] 0.25 mg PO Q8HR PRN 3 Days #9 tab PRN Reason: Anxiety Gabapentin [Neurontin] 100 mg PO BID Albuterol Inhaler [Ventolin Hfa Inhaler] 1 - 2 puff INHALATION RT-Q6H PRN PRN Reason: Shortness Of Breath Ascorbic Acid [Vitamin C] 1,000 mg PO DAILY Discharge Medication List Pramipexole [Mirapex] 0.5 mg PO HS 09/28/15 [History] Cholecalciferol [Vitamin D3] 2,000 unit PO HS 02/02/16 [History] Diltiazem Cd [Cardizem CD] 240 mg PO HS 02/02/16 [History] Omeprazole 20 mg PO BID 02/02/16 [History] Beclomethasone Dipropionate [Qvar 80 mcg] 2 puff INHALATION RT-BID 11/14/16 [History] Montelukast [Singulair] 10 mg PO HS #30 tab 02/12/17 [Rx] Budesonide [Pulmicort Flexhaler] 2 puff INHALATION RT-BID 05/31/18 [History] Ipratropium-Albuterol Nebulize [Duoneb 0.5 mg-3 mg/3 ml Soln] 3 ml INHALATION RT-QID PRN 05/31/18 [History] HYDROcodone/APAP 10-325MG [[place] 10-325] 1 tab PO Q6H PRN #12 tab 06/20/18 [Rx] Melatonin 10 mg PO HS 07/03/18 [History] ALPRAZolam [Xanax] 0.25 mg PO Q8HR PRN 3 Days #9 tab 07/12/18 [Rx] Albuterol Inhaler [Ventolin Hfa Inhaler] 1 - 2 puff INHALATION RT-Q6H PRN 11/09/18 [History] Ascorbic Acid [Vitamin C] 1,000 mg PO DAILY 11/09/18 [History] Gabapentin [Neurontin] 100 mg PO BID 11/09/18 [History] Cyclobenzaprine [Flexeril] 10 mg PO BID PRN #6 tab 11/12/18 [Rx] Fluticasone Nasal [place] [Flonase Nasal [place]] 2 spray EA NOSTRIL DAILY PRN #1 bottle 11/12/18 [Rx] predniSONE 10 mg PO DIRECTED #48 tab 11/12/18 [Rx] Follow up Appointment(s)/Referral(s): Ning Lock MD [Primary Care Provider] - 1-2 days Jey Webster MD [STAFF PHYSICIAN] - 1 Week Patient Instructions/Handouts: COPD (Chronic Obstructive Pulmonary Disease) (DC) Activity/Diet/Wound Care/Special Instructions: [employer] supplies your oxygen [phone] Discharge Disposition: HOME SELF-CARE
[2018-11-12 14:21] VITALS: BP 135/73; RESP 16; TEMP 98.4
--- NOTE | 2018-11-12 16:27 | PN ---
PROGRESS NOTE DATE OF SERVICE: 11/12/2018 This patient is less short of breath and doing better overall. On physical examination, respiratory rate is 16, pulse rate 88, temperature 98.4, blood pressure 135/73. Oxygen saturation on 2 L by nasal cannula is 93%. HEENT is unremarkable. Chest reveals prolonged expiration with wheeze on forced expiration. Cardiovascular system is in S1, S2. Abdomen is soft. There is no pedal edema. IMPRESSION AT THIS TIME: 1. Chronic obstructive pulmonary disease with acute exacerbation. 2. Acute on chronic respiratory failure. At this point in time, I agree with discharge planning on a tapering course of steroids and close outpatient followup. She was counseled regarding her condition and this approach. MMODL / IJN: [id number] /
== END 2018-11-12 15:42 | disposition home or self-care (01) ==
LOC: EC 17:37 → 4MS4W 20:15 → INTOOBSV 20:15 → UNDODISIN 11-12 15:42
PROVIDERS: ADMIT Internal Medicine; ATTEND Internal Medicine
DX: J44.1 Chronic obstructive pulmonary disease with (acute) exacerbation (principal); J96.21 Acute and chronic respiratory failure with hypoxia; J45.901 Unspecified asthma with (acute) exacerbation; F32.9 Major depressive disorder, single episode, unspecified; F43.10 Post-traumatic stress disorder, unspecified; F41.9 Anxiety disorder, unspecified; G89.29 Other chronic pain; I50.9 Heart failure, unspecified; I11.0 Hypertensive heart disease with heart failure; I25.10 Atherosclerotic heart disease of native coronary artery without angina pectoris; I25.2 Old myocardial infarction; I34.1 Nonrheumatic mitral (valve) prolapse; I48.0 Paroxysmal atrial fibrillation; K21.9 Gastro-esophageal reflux disease without esophagitis; K58.9 Irritable bowel syndrome, unspecified; M54.9 Dorsalgia, unspecified; M41.9 Scoliosis, unspecified; M62.838 Other muscle spasm; M19.90 Unspecified osteoarthritis, unspecified site; M81.0 Age-related osteoporosis without current pathological fracture; R91.8 Other nonspecific abnormal finding of lung field; Z79.891 Long term (current) use of opiate analgesic; Z79.899 Other long term (current) drug therapy; Z85.41 Personal history of malignant neoplasm of cervix uteri; Z86.19 Personal history of other infectious and parasitic diseases; Z87.440 Personal history of urinary (tract) infections; Z87.01 Personal history of pneumonia (recurrent); Z87.891 Personal history of nicotine dependence; Z99.81 Dependence on supplemental oxygen; Z88.1 Allergy status to other antibiotic agents; Z88.2 Allergy status to sulfonamides; Z88.8 Allergy status to other drugs, medicaments and biological substances; Z90.49 Acquired absence of other specified parts of digestive tract; Z80.3 Family history of malignant neoplasm of breast; Z80.7 Family history of other malignant neoplasms of lymphoid, hematopoietic and related tissues; Z80.1 Family history of malignant neoplasm of trachea, bronchus and lung; Z80.8 Family history of malignant neoplasm of other organs or systems; Z81.1 Family history of alcohol abuse and dependence; Z83.6 Family history of other diseases of the respiratory system; Z80.0 Family history of malignant neoplasm of digestive organs
CPT/HCPCS: 99285; 96376 ×3; 96375 ×2; 96374; 36415; 94640 ×8; 80053 ×3; 83735; 85025 ×3; 71046; 93971; G0378 ×4; J2270; J2930 ×4; J7512 ×2; J1170 ×3

== ENCOUNTER → 2019-01-14 | Outpatient (CLI) | payer OTHER ==
--- NOTE | 2019-01-14 14:44 | CT ---
EXAMINATION TYPE: CT chest wo con DATE OF EXAM: 01/14/2019 COMPARISON: 03/18/2018 HISTORY: Pulmonary nodule and shortness of breath. CT DLP: 198.1 mGycm. Automated Exposure Control for Dose Reduction was Utilized. TECHNIQUE: CT scan of the thorax is performed without IV contrast. FINDINGS: LUNGS: The previously seen 4 mm left pulmonary nodule was determined to be benign and stable on the p rior exam of 2018. There is a retrospectively unchanged subsolid 4 mm pulmonary nodule in the left lo wer lobe on image 40. Left apical scar versus pulmonary nodule was seen on the prior exam and is unch anged on image 11. Distal bronchial wall thickening on image 19 is also unchanged. No new suspicious pulmonary nodule or mass is seen. Scattered areas of atelectasis and pleural parenchymal scarring are noted. There is chronic peribronchial cuffing greatest in the right lower lobe and cylindrical bronc hiectasis of the lower lobes. There is no pleural effusion or pneumothorax seen. The main tracheobro nchial tree is patent. MEDIASTINUM: Lack of IV contrast is noted to limit evaluation for mediastinal and especially hilar ad enopathy. There are no definitive greater than 1 cm hilar or mediastinal lymph nodes. Mild coronary artery calcifications are present. Moderate atherosclerosis of the thoracic aorta is seen. No cardiom egaly or pericardial effusion is seen. OTHER: There is a 2 mm nonobstructing left upper pole renal calculus and 1 to 2 mm left midpole renal calculus. No hydronephrosis and the visualized kidneys. Extensive atherosclerosis of the visualized abdominal aorta. Very small hiatal hernia is suspected. Upper abdomen is suboptimally evaluated witho ut contrast. There is a levoscoliosis of the thoracolumbar junction and redemonstration of compressio n deformities of T6 and T7 as seen on the prior. There is also mild diffuse osseous demineralization. Old fracture deformity of the sternal body is also noted. IMPRESSION: 1. Stable bilateral sub-4 mm pulmonary nodules in comparison to 03/18/2018. Follow-up CT is recommended in one year to establish long-term stability. 2. Extensive underlying bullous emphysematous changes of the lungs with cylindrical bibasilar bronchi ectasis and peribronchial cuffing, likely on the basis of chronic reactive airway disease rather than acute bronchitis. 3. Levoscoliosis of the thoracolumbar junction, old fracture deformity of the sternal body, similar c ompression deformities of T6 and T7, and diffuse osseous demineralization are incidentally seen. 4. Nonobstructing renal calculi on the left.
== END | disposition home or self-care (01) ==
LOC: RADCTMAIN 13:54
PROVIDERS: ATTEND Internal Medicine
DX: J43.9 Emphysema, unspecified (principal); R91.8 Other nonspecific abnormal finding of lung field; J47.9 Bronchiectasis, uncomplicated; Z88.8 Allergy status to other drugs, medicaments and biological substances
CPT/HCPCS: 71250

== ENCOUNTER 2019-01-17 19:57 | Inpatient (IN) | payer OTHER ==
[2019-01-17] MEDS ORDERED: IPRATROPIUM 0.5 MG/2.5 ML NEBU INHALATION STA (20:15)
[2019-01-17] MEDS ORDERED: ALBUTEROL NEBULIZED 2.5 MG/3 ML INHALATION STA (20:15)
[2019-01-17] MEDS ORDERED: methylPREDNISolone SOD SUCCI 125 MG/2 ML VIAL IV STA (20:15)
[2019-01-17 20:35] LABS: Basophils # (A) 0.1 k/uL (0-0.2); Basophils % (A) 1 %; Eosinophils # (A) 0.3 k/uL (0-0.7); Eosinophils % (A) 4 %; HCT 42.5 % (34.0-46.0); HGB 13.7 gm/dL (11.4-16.0); Lymphocytes # (A) 1.9 k/uL (1.0-4.8); Lymphocytes % (A) 29 %; MCH 29.4 pg (25.0-35.0); MCHC 32.2 g/dL (31.0-37.0); MCV 91.2 fL (80.0-100.0); Mean Platelet Volume 7.7; Monocytes # (A) 0.4 k/uL (0-1.0); Monocytes % (A) 7 %; Neutrophils # (A) 3.7 k/uL (1.3-7.7); Neutrophils % (A) 56 %; Platelet Count 246 k/uL (150-450); RBC 4.66 m/uL (3.80-5.40); RDW 14.6 % (11.5-15.5); WBC 6.6 k/uL (3.8-10.6)
[2019-01-17 20:43] LABS: ALT 37 U/L (9-52); AST 31 U/L (14-36); African American GFR (CKD) >90 (>60 ml/min/1.73 sqM); Albumin 4.7 g/dL (3.5-5.0); Alkaline Phosphatase 108 U/L (38-126); Anion Gap 9 mmol/L; Blood Urea Nitrogen 13 mg/dL (7-17); Calcium 9.5 mg/dL (8.4-10.2); Carbon Dioxide 34 mmol/L (22-30); Chloride 92 mmol/L (98-107); Glucose 95 mg/dL (74-99); INR 0.9 (<1.2); Magnesium 1.8 mg/dL (1.6-2.3); Partial Thromboplastin Time 28.6 sec (22.0-30.0); Potassium 4.5 mmol/L (3.5-5.1); Sodium 135 mmol/L (137-145); Total Bilirubin 0.6 mg/dL (0.2-1.3); Total Protein 7.7 g/dL (6.3-8.2)
[2019-01-17] MEDS ORDERED: MORPHINE SULFATE 4 MG/ML SYRINGE IVP STA (21:18)
--- NOTE | 2019-01-17 21:39 | XR ---
EXAMINATION TYPE: XR chest 2V DATE OF EXAM: 01/17/2019 COMPARISON: 11/09/2018 HISTORY: Short of breath TECHNIQUE: Frontal and lateral views of the chest are obtained. FINDINGS: There is no heart failure nor confluent pneumonic infiltrate. There is slight coarsening o f interstitial markings. Thoracic aorta is atheromatous. There is osteopenia. There is 30% anterior w edging of a midthoracic vertebra. IMPRESSION: Mild pulmonary fibrosis. No acute lung disease. No change.
[2019-01-17] MEDS ORDERED: CEFEPIME 2 GM in SODIUM CHLORIDE 0.9% 100 ML IVPB STA (22:55)
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
[2019-01-17] MEDS ORDERED: HYDROmorphone 1 MG/ML 1 ML SYRINGE IVP STA (23:43)
[2019-01-18] MEDS: methylPREDNISolone SOD SUCCI 125 MG/2 ML VIAL IV SCH ×5 (00:47→23:07)
[2019-01-18] MEDS: IPRATROPIUM-ALBUTEROL 3 ML NEB INHALATION PRN ×3 (01:24→23:49)
[2019-01-18] MEDS: MELATONIN 5 MG TABLET PO SCH ×2 (01:37→20:23)
[2019-01-18] MEDS: MONTELUKAST 10 MG TAB PO SCH ×2 (01:37→20:23)
[2019-01-18] MEDS: HYDROcodone/APAP 10-325MG 1 EACH TAB PO PRN ×4 (01:38→20:23)
[2019-01-18] MEDS: PRAMIPEXOLE 0.5 MG TAB PO SCH ×2 (03:47→20:23)
[2019-01-18] MEDS: DILTIAZEM CD 240 MG CAP.ER.24H PO SCH ×2 (04:20→20:23)
[2019-01-18] MEDS: ALPRAZolam 0.25 MG TAB PO PRN ×2 (04:20→16:49)
[2019-01-18 06:56] LABS: Glucose,Whole Blood 140 mg/dL (75-99)
[2019-01-18] MEDS: INSULIN ASPART (NovoLOG) 100 UNIT/ML VIAL SQ SCH ×4 (07:07→20:19)
[2019-01-18] MEDS: CEFEPIME 2 GM in SODIUM CHLORIDE 0.9% 100 ML IVPB SCH ×3 (07:07→23:07)
[2019-01-18] MEDS: PANTOPRAZOLE 40 MG TABLET PO SCH (07:07)
[2019-01-18] MEDS: ASCORBIC ACID 500 MG TAB PO SCH (07:59)
[2019-01-18] MEDS: IPRATROPIUM-ALBUTEROL 3 ML NEB INHALATION SCH ×4 (08:00→19:01)
[2019-01-18 11:41] LABS: Glucose,Whole Blood 172 mg/dL (75-99)
[2019-01-18] MEDS: ENOXAPARIN 40 MG/0.4 ML SYRINGE SQ SCH (11:56)
[2019-01-18] MEDS: HYDROmorphone 0.5 MG/0.5 ML SYRINGE IVP PRN ×4 (12:03→21:18)
--- NOTE | 2019-01-18 12:46 | US ---
EXAMINATION TYPE: US venous doppler duplex LE RT DATE OF EXAM: 01/18/2019 12:33 PM COMPARISON: NONE CLINICAL HISTORY: right leg pain. Pt states right leg pain SIDE PERFORMED: Right TECHNIQUE: The lower extremity deep venous system is examined utilizing real time linear array sonog jed with graded compression, doppler sonography and color-flow sonography. VESSELS IMAGED: External Iliac Vein (EIV) Common Femoral Vein Deep Femoral Vein Greater Saphenous Vein * Femoral Vein Popliteal Vein Small Saphenous Vein * Proximal Calf Veins (* superficial vessels) Right Leg: Negative for DVT No popliteal fossa lesion is seen. IMPRESSION: THIS EXAMINATION IS NEGATIVE FOR DVT IN THE RIGHT LEG.
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
[2019-01-18 17:08] LABS: Glucose,Whole Blood 154 mg/dL (75-99)
[2019-01-18] MEDS: BUDESONIDE 0.5 MG/2 ML NEBU INHALATION SCH (19:02)
[2019-01-18] MEDS: CHOLECALCIFEROL 1,000 UNIT TAB PO SCH (20:22)
[2019-01-18 20:26] LABS: Glucose,Whole Blood 128 mg/dL (75-99)
[2019-01-19] MEDS: HYDROmorphone 0.5 MG/0.5 ML SYRINGE IVP PRN ×8 (00:02→22:29)
[2019-01-19] MEDS: HYDROcodone/APAP 10-325MG 1 EACH TAB PO PRN ×4 (02:18→20:34)
[2019-01-19] MEDS: IPRATROPIUM-ALBUTEROL 3 ML NEB INHALATION PRN ×2 (04:02→23:07)
[2019-01-19] MEDS: methylPREDNISolone SOD SUCCI 125 MG/2 ML VIAL IV SCH ×4 (05:11→23:23)
[2019-01-19] MEDS: ALPRAZolam 0.25 MG TAB PO PRN ×2 (05:11→21:40)
[2019-01-19 06:58] LABS: Glucose,Whole Blood 126 mg/dL (75-99)
[2019-01-19] MEDS: INSULIN ASPART (NovoLOG) 100 UNIT/ML VIAL SQ SCH ×4 (07:11→20:35)
[2019-01-19] MEDS: CEFEPIME 2 GM in SODIUM CHLORIDE 0.9% 100 ML IVPB SCH ×3 (07:20→23:23)
[2019-01-19] MEDS: PANTOPRAZOLE 40 MG TABLET PO SCH (07:20)
[2019-01-19] MEDS: ASCORBIC ACID 500 MG TAB PO SCH (07:20)
[2019-01-19] MEDS: IPRATROPIUM-ALBUTEROL 3 ML NEB INHALATION SCH ×4 (07:30→19:35)
[2019-01-19] MEDS: BUDESONIDE 0.5 MG/2 ML NEBU INHALATION SCH ×2 (07:30→19:35)
[2019-01-19 08:00] LABS: Basophils % (A) 0 %; Eosinophils % (A) 0 %; HCT 41.1 % (34.0-46.0); HGB 12.8 gm/dL (11.4-16.0); Lymphocytes # (A) 0.6 k/uL (1.0-4.8); Lymphocytes % (A) 5 %; MCH 29.1 pg (25.0-35.0); MCHC 31.2 g/dL (31.0-37.0); MCV 93.2 fL (80.0-100.0); Mean Platelet Volume 7.5; Monocytes # (A) 0.4 k/uL (0-1.0); Monocytes % (A) 3 %; Neutrophils # (A) 11.2 k/uL (1.3-7.7); Neutrophils % (A) 91 %; Platelet Count 217 k/uL (150-450); RBC 4.41 m/uL (3.80-5.40); WBC 12.3 k/uL (3.8-10.6)
[2019-01-19 08:19] LABS: ALT 25 U/L (9-52); AST 16 U/L (14-36); African American GFR (CKD) >90 (>60 ml/min/1.73 sqM); Albumin 4.2 g/dL (3.5-5.0); Alkaline Phosphatase 101 U/L (38-126); Anion Gap 7 mmol/L; Blood Urea Nitrogen 13 mg/dL (7-17); Calcium 9.2 mg/dL (8.4-10.2); Carbon Dioxide 32 mmol/L (22-30); Chloride 101 mmol/L (98-107); Glucose 122 mg/dL (74-99); Potassium 4.2 mmol/L (3.5-5.1); Sodium 140 mmol/L (137-145); Total Bilirubin 0.4 mg/dL (0.2-1.3); Total Protein 7.1 g/dL (6.3-8.2)
[2019-01-19] MEDS: ENOXAPARIN 40 MG/0.4 ML SYRINGE SQ SCH (08:30)
[2019-01-19 11:29] LABS: Glucose,Whole Blood 142 mg/dL (75-99)
[2019-01-19 16:55] LABS: Glucose,Whole Blood 135 mg/dL (75-99)
[2019-01-19] MEDS: MONTELUKAST 10 MG TAB PO SCH (20:35)
[2019-01-19] MEDS: CHOLECALCIFEROL 1,000 UNIT TAB PO SCH (20:35)
[2019-01-19] MEDS: MELATONIN 5 MG TABLET PO SCH (20:35)
[2019-01-19] MEDS: DILTIAZEM CD 240 MG CAP.ER.24H PO SCH (20:35)
[2019-01-19] MEDS: PRAMIPEXOLE 0.5 MG TAB PO SCH (20:35)
[2019-01-19 20:40] LABS: Glucose,Whole Blood 174 mg/dL (75-99)
--- NOTE | 2019-01-19 21:36 | PN ---
PROGRESS NOTE She was seen on January 19, 2019. She continues to have quite a bit of shortness of breath at this time. PHYSICAL EXAMINATION: Her respiratory rate is 17, pulse rate of 98, temperature 98.3, blood pressure 122/85, O2 saturation on 3 L by nasal cannula is 99%. HEENT is unremarkable. Chest was prolonged expiration with expiratory wheeze. Cardiovascular system with an S1, S2. Abdomen is soft. There is no pedal edema. Sodium is 140, potassium 4.2, chloride 101, bicarb 32, BUN 13, creatinine 0.34. White count 12.3, hemoglobin 12.8. IMPRESSION: At this time: 1. Asthma with acute exacerbation. 2. Chronic obstructive pulmonary disease. 3. Possible secondary bacterial infection. Increase her activity level. Continue antibiotics. Keep her on IV steroids and aerosolized steroids. She may be a candidate for anti IgE treatment with as she has previously shown eosinophilic phenotype. Her prognosis is guarded. She was counseled regarding her condition and this approach. We will follow her closely during her hospital stay. BIBIL / KONGN: [id number] /
[2019-01-20] MEDS: IPRATROPIUM-ALBUTEROL 3 ML NEB INHALATION PRN ×2 (03:12→23:05)
[2019-01-20] MEDS: HYDROmorphone 0.5 MG/0.5 ML SYRINGE IVP PRN ×6 (03:29→20:34)
[2019-01-20] MEDS: methylPREDNISolone SOD SUCCI 125 MG/2 ML VIAL IV SCH ×2 (05:06→11:55)
[2019-01-20] MEDS: HYDROcodone/APAP 10-325MG 1 EACH TAB PO PRN ×4 (05:35→23:10)
[2019-01-20 06:58] LABS: Glucose,Whole Blood 131 mg/dL (75-99)
[2019-01-20] MEDS: IPRATROPIUM-ALBUTEROL 3 ML NEB INHALATION SCH ×4 (07:31→20:26)
[2019-01-20] MEDS: BUDESONIDE 0.5 MG/2 ML NEBU INHALATION SCH (07:32)
[2019-01-20] MEDS: INSULIN ASPART (NovoLOG) 100 UNIT/ML VIAL SQ SCH ×4 (08:07→20:33)
[2019-01-20 08:14] LABS: Basophils % (A) 0 %; Eosinophils % (A) 0 %; HCT 39.1 % (34.0-46.0); HGB 12.2 gm/dL (11.4-16.0); Hypochromasia Slight; Lymphocytes # (A) 0.5 k/uL (1.0-4.8); Lymphocytes % (A) 4 %; MCH 29.4 pg (25.0-35.0); MCHC 31.2 g/dL (31.0-37.0); MCV 94.1 fL (80.0-100.0); Mean Platelet Volume 7.7; Monocytes # (A) 0.5 k/uL (0-1.0); Monocytes % (A) 3 %; Neutrophils # (A) 13.2 k/uL (1.3-7.7); Neutrophils % (A) 92 %; Platelet Count 233 k/uL (150-450); RBC 4.15 m/uL (3.80-5.40); WBC 14.4 k/uL (3.8-10.6)
[2019-01-20 08:28] LABS: ALT 23 U/L (9-52); AST 15 U/L (14-36); African American GFR (CKD) >90 (>60 ml/min/1.73 sqM); Albumin 4.2 g/dL (3.5-5.0); Alkaline Phosphatase 87 U/L (38-126); Anion Gap 7 mmol/L; Blood Urea Nitrogen 18 mg/dL (7-17); Calcium 9.3 mg/dL (8.4-10.2); Carbon Dioxide 33 mmol/L (22-30); Chloride 102 mmol/L (98-107); Glucose 129 mg/dL (74-99); Potassium 4.4 mmol/L (3.5-5.1); Sodium 142 mmol/L (137-145); Total Bilirubin 0.3 mg/dL (0.2-1.3); Total Protein 6.9 g/dL (6.3-8.2)
[2019-01-20] MEDS: CEFEPIME 2 GM in SODIUM CHLORIDE 0.9% 100 ML IVPB SCH ×3 (08:37→23:11)
[2019-01-20] MEDS: ASCORBIC ACID 500 MG TAB PO SCH (08:37)
[2019-01-20] MEDS: PANTOPRAZOLE 40 MG TABLET PO SCH (08:37)
[2019-01-20] MEDS: ENOXAPARIN 40 MG/0.4 ML SYRINGE SQ SCH ×3 (08:37→09:51)
[2019-01-20] MEDS: ALPRAZolam 0.25 MG TAB PO PRN (08:37)
[2019-01-20 11:27] LABS: Glucose,Whole Blood 126 mg/dL (75-99)
[2019-01-20] MEDS ORDERED: LACTULOSE 20 GM/30 ML CUP PO ONE (12:40)
--- NOTE | 2019-01-20 12:48 | P.PN ---
Subjective Progress Note Date: 01/20/19 Lula Weathers is a 63-year-old female who presented to [facility] emergency room with a chief complaint of cough and worsening shortness of breath over the last 4 days patient stated that she was in her normal state of health until about 1 week ago when she started having worsening fatigue and weakness she started having worsening shortness of breath and cough with white to yellow sputum production about 4 days ago otherwise she denies any complaints there is no fever or chills no headache or dizziness no chest pain no nausea or vomiting no abdominal pain no diarrhea and no urinary symptoms. Patient has a known history of advanced COPD was chronic hypoxic respiratory failure maintained on a home oxygen she was maintained on steroids at home until about 1 week ago she states her symptoms started when her course of steroids ended. 01/20/2019 patient still feeling short of breath with activity. She is asking for increase in her pain medication. She is complaining of back pain and abdominal discomfort. She is complaining of constipation reports his been about 4 days since her last bowel movement. She also refused the Pulmicort. She states that the Pulmicort makes her feel funny. She denies any chest pain, nausea or vomiting, urinary symptoms. White count 14.4 CO2 is 33. Right leg Doppler was negative for DVT. Sputum culture is pending. Objective - Vital Signs Vital signs: Vital Signs Temp 98.3 F 01/20/19 08:08 Pulse 94 01/20/19 11:43 Resp 16 01/20/19 00:20 BP 104/73 01/20/19 08:08 Pulse Ox 95 01/20/19 08:08 Intake & Output 01/19/19 01/20/19 01/20/19 18:59 06:59 18:59 Intake Total 2019 380 Balance 2019 380 Intake: Intake, IV Titration 100 200 Amount Cefepime 2 gm In Sodium 100 200 Chloride 0.9% 100 ml @ 200 mls/hr IVPB Q8HR [facility] Rx#:[id number] Oral 1920 180 - Exam Head normocephalic Neck supple Lungs diminished in tight bilaterally Heart regular rate and rhythm S1-S2, no rub or gallop Abdomen is soft nontender nondistended positive bowel sounds no hepatosplenomegaly Extremities no edema Neuro alert and orientated to 3 - Labs CBC & Chem 7: 01/20/19 07:16 01/20/19 07:16 Labs: Abnormal Lab Results - Last 24 Hours (Table) 01/19/19 01/19/19 01/20/19 Range/Units 16:52 20:26 06:57 WBC (3.8-10.6) k/uL Neutrophils # (1.3-7.7) k/uL Lymphocytes # (1.0-4.8) k/uL Carbon Dioxide (22-30) mmol/L BUN (7-17) mg/dL Creatinine (0.52-1.04) mg/dL Glucose (74-99) mg/dL POC Glucose (mg/dL) 135 H 174 H 131 H (75-99) mg/dL 01/20/19 01/20/19 01/20/19 Range/Units 07:16 07:16 11:25 WBC 14.4 H (3.8-10.6) k/uL Neutrophils # 13.2 H (1.3-7.7) k/uL Lymphocytes # 0.5 L (1.0-4.8) k/uL Carbon Dioxide 33 H (22-30) mmol/L BUN 18 H (7-17) mg/dL Creatinine 0.41 L (0.52-1.04) mg/dL Glucose 129 H (74-99) mg/dL POC Glucose (mg/dL) 126 H (75-99) mg/dL Microbiology - Last 24 Hours (Table) 01/17/19 20:23 Blood Culture - Preliminary Blood No Growth after 48 hours 01/19/19 00:03 Gram Stain - Preliminary Sputum Sputum Culture - Preliminary Assessment and Plan Assessment: #1 acute exacerbation of chronic obstructive pulmonary disease: Continue bronchodilators and IV Solu-Medrol. Pulmonary service following #2 acute on chronic hypoxic respiratory failure #3 underlying history of paroxysmal atrial fibrillation: Not on anticoagulation due to history of heavy bleeding. #4 underlying history of congestive heart failure #5 underlying history of coronary artery disease #6 underlying history of chronic back pain #7 previous history of pseudomonas aeruginosa pneumonia #8 constipation add Colace and lactulose #9 leukocytosis secondary to steroids #10 hyperglycemia secondary to steroids continue sliding scale coverage #11 possible acute tracheobronchitis: No evidence of pneumonia on chest x-ray. Previous history of Pseudomonas pneumonia. Patient currently on IV cefepime. Sputum culture pending #12 history of hepatitis C GI prophylaxis Protonix and DVT prophylaxis Lovenox I performed an examination of the patient and discussed their management with the physician Automotive Parts Counter Associate. I have reviewed the Physician Automotive Parts Counter Associate's notes and agree with the documented findings and plan of care
--- NOTE | 2019-01-20 14:27 | P.PN ---
Subjective Progress Note Date: 01/20/19 patient seen and examined for follow-up. The patient states that she is feeling a little bit better but states that she thinks she has Pseudomonas again. Her phlegm is green in color. She denies fevers and chills. She is currently on 3 L nasal cannula.she also states that she does not want to take Pulmicort because it makes her nauseous and she does not feel well. Objective - Vital Signs Vital signs: Vital Signs Temp 98.3 F 01/20/19 08:08 Pulse 94 01/20/19 11:43 Resp 16 01/20/19 00:20 BP 104/73 01/20/19 08:08 Pulse Ox 95 01/20/19 08:08 Intake & Output 01/19/19 01/20/19 01/20/19 18:59 06:59 18:59 Intake Total 2019 380 Balance 2019 380 Intake: Intake, IV Titration 100 200 Amount Cefepime 2 gm In Sodium 100 200 Chloride 0.9% 100 ml @ 200 mls/hr IVPB Q8HR [facility] Rx#:[id number] Oral 1920 180 - Exam GENERAL EXAM: Alert, active, comfortable in no apparent distress. LUNGS: Equal air entry with no crackles, wheeze, rhonchi or dullness. Bases diminished CVS: S1 and S2 normal ABDOMEN: No hepatosplenomegaly, normal bowel sounds, no guarding or rigidity. EXTREMITIES: No edema noted, pedal pulses palpable. CENTRAL NERVOUS SYSTEM: No focal deficits, tone is normal in all 4 extremities. - Labs CBC & Chem 7: 01/20/19 07:16 01/20/19 07:16 Labs: Abnormal Lab Results - Last 24 Hours (Table) 01/19/19 01/19/19 01/20/19 Range/Units 16:52 20:26 06:57 WBC (3.8-10.6) k/uL Neutrophils # (1.3-7.7) k/uL Lymphocytes # (1.0-4.8) k/uL Carbon Dioxide (22-30) mmol/L BUN (7-17) mg/dL Creatinine (0.52-1.04) mg/dL Glucose (74-99) mg/dL POC Glucose (mg/dL) 135 H 174 H 131 H (75-99) mg/dL 01/20/19 01/20/1919 Range/Units 07:16 07:16 11:25 WBC 14.4 H (3.8-10.6) k/uL Neutrophils # 13.2 H (1.3-7.7) k/uL Lymphocytes # 0.5 L (1.0-4.8) k/uL Carbon Dioxide 33 H (22-30) mmol/L BUN 18 H (7-17) mg/dL Creatinine 0.41 L (0.52-1.04) mg/dL Glucose 129 H (74-99) mg/dL POC Glucose (mg/dL) 126 H (75-99) mg/dL Microbiology - Last 24 Hours (Table) 01/17/19 20:23 Blood Culture - Preliminary Blood No Growth after 48 hours 01/19/19 00:03 Gram Stain - Preliminary Sputum Sputum Culture - Preliminary Assessment and Plan Assessment: COPD, acute exacerbation Acute on Chronic hypoxemic respiratory failure, dependent on home O2 at all times Chronic persistent moderate asthma with acute exacerbation Protein calorie malnutrition, moderate Plan Steroid taper Medications have been reviewed and will be continued as ordered. Chest x-ray reviewed Continue with antibiotics Continue with pulmonary hygiene, coughing and deep breathing exercises, and supportive care. Supplemental oxygen to maintain oxygen saturations of 90% or better. Continue nebulizer treatments. DC Pulmicort, patient is declining Initiate and encourage incentive spirometer GI and DVT prophylaxis. Increase activity as tolerated We will continue to monitor labs/results and adjust treatment as necessary. Further recommendations pending. Ashvin Hale Mucinex Sputum culture
[2019-01-20] MEDS: DOCUSATE 100 MG CAP PO SCH ×2 (15:07→20:33)
[2019-01-20] MEDS: methylPREDNISolone SOD SUCCI 40 MG/ML 1 ML VIAL IV SCH ×2 (15:09→23:11)
[2019-01-20 16:58] LABS: Glucose,Whole Blood 117 mg/dL (75-99)
[2019-01-20 20:32] LABS: Glucose,Whole Blood 134 mg/dL (75-99)
[2019-01-20] MEDS: DILTIAZEM CD 240 MG CAP.ER.24H PO SCH (20:32)
[2019-01-20] MEDS: CHOLECALCIFEROL 1,000 UNIT TAB PO SCH (20:32)
[2019-01-20] MEDS: MONTELUKAST 10 MG TAB PO SCH (20:33)
[2019-01-20] MEDS: guaiFENesin 600 MG TABLET.ER PO SCH (20:33)
[2019-01-20] MEDS: MELATONIN 5 MG TABLET PO SCH (20:33)
[2019-01-20] MEDS: PRAMIPEXOLE 0.5 MG TAB PO SCH (20:34)
[2019-01-21] MEDS: HYDROmorphone 0.5 MG/0.5 ML SYRINGE IVP PRN ×4 (00:52→13:25)
[2019-01-21] MEDS: IPRATROPIUM-ALBUTEROL 3 ML NEB INHALATION SCH ×4 (06:55→19:40)
[2019-01-21 07:35] LABS: Glucose,Whole Blood 118 mg/dL (75-99)
[2019-01-21] MEDS: INSULIN ASPART (NovoLOG) 100 UNIT/ML VIAL SQ SCH ×4 (09:10→20:21)
[2019-01-21] MEDS: ENOXAPARIN 40 MG/0.4 ML SYRINGE SQ SCH ×2 (09:18→09:19)
[2019-01-21] MEDS: PANTOPRAZOLE 40 MG TABLET PO SCH (09:20)
[2019-01-21] MEDS: methylPREDNISolone SOD SUCCI 40 MG/ML 1 ML VIAL IV SCH ×2 (09:20→15:59)
[2019-01-21] MEDS: guaiFENesin 600 MG TABLET.ER PO SCH ×2 (09:20→21:03)
[2019-01-21] MEDS: ASCORBIC ACID 500 MG TAB PO SCH (09:20)
[2019-01-21] MEDS: CEFEPIME 2 GM in SODIUM CHLORIDE 0.9% 100 ML IVPB SCH ×2 (09:20→15:59)
[2019-01-21] MEDS: DOCUSATE 100 MG CAP PO SCH ×2 (09:20→21:03)
[2019-01-21 10:31] LABS: ALT 22 U/L (9-52); AST 20 U/L (14-36); African American GFR (CKD) >90 (>60 ml/min/1.73 sqM); Albumin 4.4 g/dL (3.5-5.0); Alkaline Phosphatase 82 U/L (38-126); Anion Gap 7 mmol/L; Blood Urea Nitrogen 18 mg/dL (7-17); Calcium 9.3 mg/dL (8.4-10.2); Carbon Dioxide 35 mmol/L (22-30); Chloride 100 mmol/L (98-107); Glucose 127 mg/dL (74-99); Potassium 4.3 mmol/L (3.5-5.1); Sodium 142 mmol/L (137-145); Total Bilirubin 0.4 mg/dL (0.2-1.3); Total Protein 7.1 g/dL (6.3-8.2)
[2019-01-21 10:37] LABS: Basophils % (A) 0 %; Eosinophils % (A) 0 %; HCT 40.7 % (34.0-46.0); HGB 12.4 gm/dL (11.4-16.0); Hypochromasia Slight; Lymphocytes # (A) 0.6 k/uL (1.0-4.8); Lymphocytes % (A) 5 %; MCHC 30.6 g/dL (31.0-37.0); MCV 94.8 fL (80.0-100.0); Mean Platelet Volume 7.6; Monocytes # (A) 0.5 k/uL (0-1.0); Monocytes % (A) 5 %; Neutrophils # (A) 10.1 k/uL (1.3-7.7); Neutrophils % (A) 89 %; Platelet Count 231 k/uL (150-450); RBC 4.29 m/uL (3.80-5.40); RDW 15.1 % (11.5-15.5); WBC 11.4 k/uL (3.8-10.6)
[2019-01-21] MEDS: HYDROcodone/APAP 10-325MG 1 EACH TAB PO PRN ×2 (10:58→21:04)
[2019-01-21] MEDS: ALPRAZolam 0.25 MG TAB PO PRN (11:18)
[2019-01-21 11:35] LABS: Glucose,Whole Blood 99 mg/dL (75-99)
--- NOTE | 2019-01-21 13:58 | P.PN ---
Subjective Progress Note Date: 01/21/19 Lula Weathers is a 63-year-old female who presented to [facility] emergency room with a chief complaint of cough and worsening shortness of breath over the last 4 days patient stated that she was in her normal state of health until about 1 week ago when she started having worsening fatigue and weakness she started having worsening shortness of breath and cough with white to yellow sputum production about 4 days ago otherwise she denies any complaints there is no fever or chills no headache or dizziness no chest pain no nausea or vomiting no abdominal pain no diarrhea and no urinary symptoms. Patient has a known history of advanced COPD was chronic hypoxic respiratory failure maintained on a home oxygen she was maintained on steroids at home until about 1 week ago she states her symptoms started when her course of steroids ended. 01/20/2019 patient still feeling short of breath with activity. She is asking for increase in her pain medication. She is complaining of back pain and abdominal discomfort. She is complaining of constipation reports his been about 4 days since her last bowel movement. She also refused the Pulmicort. She states that the Pulmicort makes her feel funny. She denies any chest pain, nausea or vomiting, urinary symptoms. White count 14.4 CO2 is 33. Right leg Doppler was negative for DVT. Sputum culture is pending. 01/21/2019 patient is still complaining of shortness of breath and requiring extra breathing treatments. Pulmonary service is following. She remains on IV steroids. Patient has become tachycardic heart rate in the 1 teens to 120s. EKG ordered and showing atrial fibrillation with a heart rate of 106. Patient has been placed on telemetry monitoring thyroid levels been ordered and cardiology is been placed on consult. She denies any chest pain. Denies any nausea or vomiting. Denies any bowel changes or urinary symptoms. She is complaining of her chronic back pain and neck pain. And asking for increase in pain medication. Dilaudid has been increased to 1 mg every 3 hours as needed for pain. Patient also reporting that she is having difficulty sleeping due to her pain. Objective - Vital Signs Vital signs: Vital Signs Temp 98.4 F 01/21/19 07:13 Pulse 120 H 01/21/19 11:15 Resp 18 01/21/19 07:13 BP 130/91 01/21/19 07:13 Pulse Ox 97 01/21/19 07:13 Intake & Output 01/20/19 01/21/19 01/21/19 18:59 06:59 18:59 Intake Total 100 360 Balance 100 360 Weight 62.7 kg Intake: Intake, IV Titration 100 Amount Cefepime 2 gm In Sodium 100 Chloride 0.9% 100 ml @ 200 mls/hr IVPB Q8HR [facility] Rx#:[id number] Oral 360 Other: Voiding Method Toilet # Voids 1 1 2 - Exam Head normocephalic Neck supple Lungs diminished bilaterally with wheezing Heart irregular Abdomen is soft nontender nondistended positive bowel sounds no hepatosplenomegaly Extremities no edema Neuro alert and orientated to 3 - Labs CBC & Chem 7: 01/21/19 09:36 01/21/19 09:36 Labs: Abnormal Lab Results - Last 24 Hours (Table) 01/20/19 01/20/19 01/21/19 Range/Units 16:57 20:19 07:17 WBC (3.8-10.6) k/uL MCHC (31.0-37.0) g/dL Neutrophils # (1.3-7.7) k/uL Lymphocytes # (1.0-4.8) k/uL Carbon Dioxide (22-30) mmol/L BUN (7-17) mg/dL Creatinine (0.52-1.04) mg/dL Glucose (74-99) mg/dL POC Glucose (mg/dL) 117 H 134 H 118 H (75-99) mg/dL 01/21/19 01/21/19 Range/Units 09:36 09:36 WBC 11.4 H (3.8-10.6) k/uL MCHC 30.6 L (31.0-37.0) g/dL Neutrophils # 10.1 H (1.3-7.7) k/uL Lymphocytes # 0.6 L (1.0-4.8) k/uL Carbon Dioxide 35 H (22-30) mmol/L BUN 18 H (7-17) mg/dL Creatinine 0.32 L (0.52-1.04) mg/dL Glucose 127 H (74-99) mg/dL POC Glucose (mg/dL) (75-99) mg/dL Microbiology - Last 24 Hours (Table) 01/19/19 00:03 Gram Stain - Final Sputum Sputum Culture - Final 01/20/19 20:30 Gram Stain - Preliminary Sputum 01/17/19 20:23 Blood Culture - Preliminary Blood No Growth after 72 hours Assessment and Plan Assessment: #1 acute exacerbation of chronic obstructive pulmonary disease: Continue bronchodilators and IV Solu-Medrol. Pulmonary service following #2 acute on chronic hypoxic respiratory failure #3 underlying history of paroxysmal atrial fibrillation: Not on anticoagulation due to history of heavy bleeding. Patient now having atrial fibrillation with rapid ventricular response. Patient placed on telemetry. Check thyroid level. Consult cardiology #4 underlying history of congestive heart failure #5 underlying history of coronary artery disease #6 underlying history of chronic back pain #7 previous history of pseudomonas aeruginosa pneumonia #8 constipation add Colace and lactulose #9 leukocytosis secondary to steroids #10 hyperglycemia secondary to steroids continue sliding scale coverage #11 possible acute tracheobronchitis: No evidence of pneumonia on chest x-ray. Previous history of Pseudomonas pneumonia. Patient currently on IV cefepime. Initial sputum culture growing normal respiratory jh. Repeat sputum culture pending #12 history of hepatitis C #13 chronic pain of the back and neck. We'll increase her Dilaudid 1 mg every 3 hours as needed GI prophylaxis Protonix and DVT prophylaxis Lovenox I performed an examination of the patient and discussed their management with the physician Commercial Instructor Supervisor. I have reviewed the Physician Commercial Instructor Supervisor's notes and agree with the documented findings and plan of care
[2019-01-21] MEDS ORDERED: ALBUTEROL NEBULIZED 2.5 MG/3 ML INHALATION STA (15:46)
--- NOTE | 2019-01-21 15:48 | P.PN ---
Subjective Progress Note Date: 01/21/19 01/21/2019: Patient seen and examined. Patient states she is feeling worse today. She is complaining of back pain and swelling. She states that she also cannot sleep. She feels weak and cannot get up on her own. She is not yet working with physical therapy. Objective - Vital Signs Vital signs: Vital Signs Temp 98.6 F 01/21/19 14:02 Pulse 108 H 01/21/19 15:42 Resp 18 01/21/19 14:02 BP 156/80 01/21/19 14:02 Pulse Ox 92 L 01/21/19 14:02 Intake & Output 01/20/19 01/21/19 01/21/19 18:59 06:59 18:59 Intake Total 100 360 Balance 100 360 Weight 62.7 kg Intake: Intake, IV Titration 100 Amount Cefepime 2 gm In Sodium 100 Chloride 0.9% 100 ml @ 200 mls/hr IVPB Q8HR ROXY Rx#:[id number] Oral 360 Other: Voiding Method Toilet # Voids 1 1 1 - Exam GENERAL EXAM: Alert, active, comfortable in no apparent distress. LUNGS: Diminished breath sounds bilaterally with scattered faint expiratory wheezing CVS: S1 and S2 normal ABDOMEN: No hepatosplenomegaly, normal bowel sounds, no guarding or rigidity. EXTREMITIES: No edema noted, pedal pulses palpable. CENTRAL NERVOUS SYSTEM: No focal deficits, tone is normal in all 4 extremities. - Labs CBC & Chem 7: 01/21/19 09:36 01/21/19 09:36 Labs: Abnormal Lab Results - Last 24 Hours (Table) 01/20/19 01/20/19 01/21/19 Range/Units 16:57 20:19 07:17 WBC (3.8-10.6) k/uL MCHC (31.0-37.0) g/dL Neutrophils # (1.3-7.7) k/uL Lymphocytes # (1.0-4.8) k/uL Carbon Dioxide (22-30) mmol/L BUN (7-17) mg/dL Creatinine (0.52-1.04) mg/dL Glucose (74-99) mg/dL POC Glucose (mg/dL) 117 H 134 H 118 H (75-99) mg/dL TSH (0.465-4.680) mIU/L 01/21/19 01/21/19 01/21/19 Range/Units 09:06 09:36 09:36 WBC 11.4 H (3.8-10.6) k/uL MCHC 30.6 L (31.0-37.0) g/dL Neutrophils # 10.1 H (1.3-7.7) k/uL Lymphocytes # 0.6 L (1.0-4.8) k/uL Carbon Dioxide 35 H (22-30) mmol/L BUN 18 H (7-17) mg/dL Creatinine 0.32 L (0.52-1.04) mg/dL Glucose 127 H (74-99) mg/dL POC Glucose (mg/dL) (75-99) mg/dL TSH 0.039 L (0.465-4.680) mIU/L Microbiology - Last 24 Hours (Table) 01/19/19 00:03 Gram Stain - Final Sputum Sputum Culture - Final 01/20/19 20:30 Gram Stain - Preliminary Sputum 01/17/19 20:23 Blood Culture - Preliminary Blood No Growth after 72 hours Assessment and Plan Assessment: COPD, acute exacerbation Acute on Chronic hypoxemic respiratory failure, dependent on home O2 at all times Chronic persistent moderate asthma with acute exacerbation Protein calorie malnutrition, moderate Plan Steroid taper Medications have been reviewed and will be continued as ordered. Chest x-ray reviewed Continue with antibiotics Continue with pulmonary hygiene, coughing and deep breathing exercises, and supportive care. Supplemental oxygen to maintain oxygen saturations of 90% or better. Continue nebulizer treatments. DC Pulmicort, patient is declining Initiate and encourage incentive spirometer GI and DVT prophylaxis. Increase activity as tolerated We will continue to monitor labs/results and adjust treatment as necessary. Further recommendations pending. Ashvin Hale Mucinex Sputum culture PT and OT CT scan from 01/14/19 reviewed
[2019-01-21 15:59] LABS: T4, Free (Free Thyroxine) 1.15 ng/dL (0.78-2.19)
[2019-01-21] MEDS: HYDROmorphone 1 MG/ML 1 ML SYRINGE IVP PRN ×2 (16:36→19:37)
[2019-01-21 17:04] LABS: Glucose,Whole Blood 110 mg/dL (75-99)
[2019-01-21 20:29] LABS: Glucose,Whole Blood 103 mg/dL (75-99)
[2019-01-21] MEDS: MELATONIN 5 MG TABLET PO SCH (21:03)
[2019-01-21] MEDS: DILTIAZEM CD 240 MG CAP.ER.24H PO SCH (21:03)
[2019-01-21] MEDS: CHOLECALCIFEROL 1,000 UNIT TAB PO SCH (21:03)
[2019-01-21] MEDS: MONTELUKAST 10 MG TAB PO SCH (21:04)
[2019-01-21] MEDS: PRAMIPEXOLE 0.5 MG TAB PO SCH (21:04)
[2019-01-22] MEDS: CEFEPIME 2 GM in SODIUM CHLORIDE 0.9% 100 ML IVPB SCH ×4 (01:42→23:56)
[2019-01-22] MEDS: methylPREDNISolone SOD SUCCI 40 MG/ML 1 ML VIAL IV SCH ×4 (01:43→23:56)
[2019-01-22] MEDS: HYDROmorphone 1 MG/ML 1 ML SYRINGE IVP PRN ×5 (01:43→22:23)
[2019-01-22] MEDS: ALBUTEROL NEBULIZED 2.5 MG/3 ML INHALATION PRN (03:39)
[2019-01-22] MEDS: ALPRAZolam 0.25 MG TAB PO PRN ×3 (03:54→18:56)
[2019-01-22] MEDS: IPRATROPIUM-ALBUTEROL 3 ML NEB INHALATION SCH ×5 (07:19→20:37)
[2019-01-22] MEDS: HYDROcodone/APAP 10-325MG 1 EACH TAB PO PRN ×3 (07:37→21:03)
[2019-01-22] MEDS: DOCUSATE 100 MG CAP PO SCH ×2 (07:39→21:04)
[2019-01-22] MEDS: PANTOPRAZOLE 40 MG TABLET PO SCH (07:39)
[2019-01-22] MEDS: guaiFENesin 600 MG TABLET.ER PO SCH ×2 (07:39→21:05)
[2019-01-22] MEDS: ENOXAPARIN 40 MG/0.4 ML SYRINGE SQ SCH (07:39)
[2019-01-22] MEDS: ASCORBIC ACID 500 MG TAB PO SCH (07:39)
[2019-01-22 07:47] LABS: Glucose,Whole Blood 123 mg/dL (75-99)
[2019-01-22] MEDS: INSULIN ASPART (NovoLOG) 100 UNIT/ML VIAL SQ SCH ×4 (07:58→21:09)
[2019-01-22 08:15] LABS: ALT 31 U/L (9-52); AST 22 U/L (14-36); African American GFR (CKD) >90 (>60 ml/min/1.73 sqM); Albumin 4.1 g/dL (3.5-5.0); Alkaline Phosphatase 84 U/L (38-126); Blood Urea Nitrogen 21 mg/dL (7-17); Calcium 9.4 mg/dL (8.4-10.2); Chloride 97 mmol/L (98-107); Glucose 136 mg/dL (74-99); Potassium 4.3 mmol/L (3.5-5.1); Sodium 141 mmol/L (137-145); Total Bilirubin 0.4 mg/dL (0.2-1.3); Total Protein 6.8 g/dL (6.3-8.2)
[2019-01-22 08:22] LABS: Anion Gap 6 mmol/L
[2019-01-22 08:25] LABS: Basophils % (A) 0 %; Eosinophils % (A) 0 %; HCT 40.7 % (34.0-46.0); Hypochromasia Slight; Lymphocytes # (A) 0.5 k/uL (1.0-4.8); Lymphocytes % (A) 6 %; MCH 30.4 pg (25.0-35.0); MCHC 31.9 g/dL (31.0-37.0); MCV 95.3 fL (80.0-100.0); Mean Platelet Volume 7.4; Monocytes # (A) 0.4 k/uL (0-1.0); Monocytes % (A) 4 %; Neutrophils # (A) 8.3 k/uL (1.3-7.7); Neutrophils % (A) 89 %; Platelet Count 248 k/uL (150-450); RBC 4.27 m/uL (3.80-5.40); RDW 14.2 % (11.5-15.5); WBC 9.3 k/uL (3.8-10.6)
[2019-01-22 08:39] LABS: Carbon Dioxide 38 mmol/L (22-30)
[2019-01-22 12:14] LABS: Glucose,Whole Blood 125 mg/dL (75-99)
[2019-01-22] MEDS ORDERED: FUROSEMIDE 10 MG/ML 2 ML VIAL IV ONE (12:49)
--- NOTE | 2019-01-22 12:54 | P.PN ---
Subjective Progress Note Date: 01/22/19 Lula Weathers is a 63-year-old female who presented to [facility] emergency room with a chief complaint of cough and worsening shortness of breath over the last 4 days patient stated that she was in her normal state of health until about 1 week ago when she started having worsening fatigue and weakness she started having worsening shortness of breath and cough with white to yellow sputum production about 4 days ago otherwise she denies any complaints there is no fever or chills no headache or dizziness no chest pain no nausea or vomiting no abdominal pain no diarrhea and no urinary symptoms. Patient has a known history of advanced COPD was chronic hypoxic respiratory failure maintained on a home oxygen she was maintained on steroids at home until about 1 week ago she states her symptoms started when her course of steroids ended. 01/20/2019 patient still feeling short of breath with activity. She is asking for increase in her pain medication. She is complaining of back pain and abdominal discomfort. She is complaining of constipation reports his been about 4 days since her last bowel movement. She also refused the Pulmicort. She states that the Pulmicort makes her feel funny. She denies any chest pain, nausea or vomiting, urinary symptoms. White count 14.4 CO2 is 33. Right leg Doppler was negative for DVT. Sputum culture is pending. 01/21/2019 patient is still complaining of shortness of breath and requiring extra breathing treatments. Pulmonary service is following. She remains on IV steroids. Patient has become tachycardic heart rate in the 1 teens to 120s. EKG ordered and showing atrial fibrillation with a heart rate of 106. Patient has been placed on telemetry monitoring thyroid levels been ordered and cardiology is been placed on consult. She denies any chest pain. Denies any nausea or vomiting. Denies any bowel changes or urinary symptoms. She is complaining of her chronic back pain and neck pain. And asking for increase in pain medication. Dilaudid has been increased to 1 mg every 3 hours as needed for pain. Patient also reporting that she is having difficulty sleeping due to her pain. On 01/22/2019 patient is alert and oriented 3. Patient still having some shortness of breath. Cardiology services have been consulted for atrial fibrillation. Patient had episode lasting approximately 1 minute with heart rate in the 140s. TSH level checked and is low at 0.039. Tapazole has been added. Patient also having increased peripheral edema. 20 mg Lasix IV once has been ordered. At this time patient is stating improvement with her shortness of breath. Continue current plan of care. Patient denies chest pain patient denies nausea vomiting or diarrhea. Patient denies any urinary burning or frequency. Objective - Vital Signs Vital signs: Vital Signs Temp 97.9 F 01/22/19 07:40 Pulse 94 01/22/19 11:27 Resp 22 01/22/19 07:47 BP 164/73 01/22/19 07:47 Pulse Ox 99 01/22/19 07:40 Intake & Output 01/21/19 01/22/19 01/22/19 18:59 06:59 18:59 Intake Total 360 840 0 Balance 360 840 0 Intake: Oral 360 840 0 Other: Voiding Method Toilet # Voids 1 - Exam Head normocephalic Neck supple Lungs diminished bilaterally with wheezing Heart irregular Abdomen is soft nontender nondistended positive bowel sounds no hepatosplenomegaly Extremities +1 bilateral lower extremity edema Neuro alert and orientated to 3 - Labs CBC & Chem 7: 01/22/19 07:23 01/22/19 07:23 Labs: Abnormal Lab Results - Last 24 Hours (Table) 01/21/19 01/21/19 01/21/19 Range/Units 09:06 16:52 20:18 Neutrophils # (1.3-7.7) k/uL Lymphocytes # (1.0-4.8) k/uL Chloride (98-107) mmol/L Carbon Dioxide (22-30) mmol/L BUN (7-17) mg/dL Creatinine (0.52-1.04) mg/dL Glucose (74-99) mg/dL POC Glucose (mg/dL) 110 H 103 H (75-99) mg/dL TSH 0.039 L (0.465-4.680) mIU/L 01/22/19 01/22/19 01/22/19 Range/Units 07:16 07:23 07:23 Neutrophils # 8.3 H (1.3-7.7) k/uL Lymphocytes # 0.5 L (1.0-4.8) k/uL Chloride 97 L (98-107) mmol/L Carbon Dioxide 38 H (22-30) mmol/L BUN 21 H (7-17) mg/dL Creatinine 0.41 L (0.52-1.04) mg/dL Glucose 136 H (74-99) mg/dL POC Glucose (mg/dL) 123 H (75-99) mg/dL TSH (0.465-4.680) mIU/L 01/22/19 Range/Units 11:48 Neutrophils # (1.3-7.7) k/uL Lymphocytes # (1.0-4.8) k/uL Chloride (98-107) mmol/L Carbon Dioxide (22-30) mmol/L BUN (7-17) mg/dL Creatinine (0.52-1.04) mg/dL Glucose (74-99) mg/dL POC Glucose (mg/dL) 125 H (75-99) mg/dL TSH (0.465-4.680) mIU/L Microbiology - Last 24 Hours (Table) 01/17/19 20:23 Blood Culture - Preliminary Blood No Growth after 96 hours 01/19/19 00:03 Gram Stain - Final Sputum Sputum Culture - Final Assessment and Plan Assessment: #1 acute exacerbation of chronic obstructive pulmonary disease: Continue bronchodilators and IV Solu-Medrol. Pulmonary service following #2 acute on chronic hypoxic respiratory failure #3 underlying history of paroxysmal atrial fibrillation: Not on anticoagulation due to history of heavy bleeding. Patient now having atrial fibrillation with rapid ventricular response. Patient placed on telemetry. Check thyroid level. Consult cardiology #4 underlying history of congestive heart failure #5 underlying history of coronary artery disease #6 underlying history of chronic back pain #7 previous history of pseudomonas aeruginosa pneumonia #8 constipation add Colace and lactulose #9 leukocytosis secondary to steroids. resolved. #10 hyperglycemia secondary to steroids continue sliding scale coverage #11 possible acute tracheobronchitis: No evidence of pneumonia on chest x-ray. Previous history of Pseudomonas pneumonia. Patient currently on IV cefepime. Initial sputum culture growing normal respiratory jh. Repeat sputum culture pending #12 history of hepatitis C #13 chronic pain of the back and neck. We'll increase her Dilaudid 1 mg every 3 hours as needed #14 hyperthyroidism. TSH checked. TSH level 0.039. Tapazole 5 mg daily has been added due to patient having increased heart rate due to A. fib. Patient will follow up with endocrinology outpatient for further. #15 increased peripheral edema. Lasix 20 mg IV once will be ordered. DVT prophylaxis Lovenox. GI prophylaxis Pepcid I performed an examination of the patient and discussed their management with the Nurse Practitioner. I have reviewed the Nurse Practitioner's notes and agree with the documented findings and plan of care
[2019-01-22] MEDS: DILTIAZEM CD 180 MG CAP.ER.24H PO SCH (13:19)
--- NOTE | 2019-01-22 14:01 | P.PN ---
Subjective Progress Note Date: 01/22/19 01/22/2019: Patient seen and examined. Patient states she had atrial fibrillation earlier in the day. She states she was short of breath but is feeling a little bit better now. She denies cough, fevers, chills. She states that the albuterol yesterday didn't seem to help her but the duo nebs today seem to be helping. Objective - Vital Signs Vital signs: Vital Signs Temp 97.9 F 01/22/19 07:40 Pulse 94 01/22/19 11:27 Resp 22 01/22/19 07:47 BP 164/73 01/22/19 07:47 Pulse Ox 99 01/22/19 07:40 Intake & Output 01/21/19 01/22/19 01/22/19 18:59 06:59 18:59 Intake Total 360 840 0 Balance 360 840 0 Intake: Oral 360 840 0 Other: Voiding Method Toilet # Voids 1 - Exam GENERAL EXAM: Alert, active, comfortable in no apparent distress. LUNGS: Diminished breath sounds bilaterally with scattered faint expiratory wheezing CVS: S1 and S2 normal ABDOMEN: No hepatosplenomegaly, normal bowel sounds, no guarding or rigidity. EXTREMITIES: No edema noted, pedal pulses palpable. CENTRAL NERVOUS SYSTEM: No focal deficits, tone is normal in all 4 extremities. - Labs CBC & Chem 7: 01/22/19 07:23 01/22/19 07:23 Labs: Abnormal Lab Results - Last 24 Hours (Table) 01/21/19 01/21/19 01/21/19 Range/Units 09:06 16:52 20:18 Neutrophils # (1.3-7.7) k/uL Lymphocytes # (1.0-4.8) k/uL Chloride (98-107) mmol/L Carbon Dioxide (22-30) mmol/L BUN (7-17) mg/dL Creatinine (0.52-1.04) mg/dL Glucose (74-99) mg/dL POC Glucose (mg/dL) 110 H 103 H (75-99) mg/dL TSH 0.039 L (0.465-4.680) mIU/L 01/22/19 01/22/19 01/22/19 Range/Units 07:16 07:23 07:23 Neutrophils # 8.3 H (1.3-7.7) k/uL Lymphocytes # 0.5 L (1.0-4.8) k/uL Chloride 97 L (98-107) mmol/L Carbon Dioxide 38 H (22-30) mmol/L BUN 21 H (7-17) mg/dL Creatinine 0.41 L (0.52-1.04) mg/dL Glucose 136 H (74-99) mg/dL POC Glucose (mg/dL) 123 H (75-99) mg/dL TSH (0.465-4.680) mIU/L 01/22/19 Range/Units 11:48 Neutrophils # (1.3-7.7) k/uL Lymphocytes # (1.0-4.8) k/uL Chloride (98-107) mmol/L Carbon Dioxide (22-30) mmol/L BUN (7-17) mg/dL Creatinine (0.52-1.04) mg/dL Glucose (74-99) mg/dL POC Glucose (mg/dL) 125 H (75-99) mg/dL TSH (0.465-4.680) mIU/L Microbiology - Last 24 Hours (Table) 01/17/19 20:23 Blood Culture - Preliminary Blood No Growth after 96 hours 01/19/19 00:03 Gram Stain - Final Sputum Sputum Culture - Final Assessment and Plan Assessment: COPD, acute exacerbation Acute on Chronic hypoxemic respiratory failure, dependent on home O2 at all times Chronic persistent moderate asthma with acute exacerbation 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 Chest x-ray reviewed Continue with antibiotics Continue with pulmonary hygiene, coughing and deep breathing exercises, and supportive care. Supplemental oxygen to maintain oxygen saturations of 90% or better. Initiate and encourage incentive spirometer GI and DVT prophylaxis. Increase activity as tolerated We will continue to monitor labs/results and adjust treatment as necessary. Further recommendations pending. Ashvin Hale Mucinex PT and OT CT scan from 01/14/19 reviewed - follow up CT in 1 year
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
[2019-01-22 16:59] LABS: Glucose,Whole Blood 144 mg/dL (75-99)
--- NOTE | 2019-01-22 19:22 | ECHOF ---
Referral Reason:mitral regurg, afib, non-compliant MEASUREMENTS -------- HEIGHT: 154.9 cm WEIGHT: 62.6 kg BP: IVSd: 1.0 cm (0.6 - 1.1) LVIDd: 3.0 cm (3.9 - 5.3) LVPWd: 1.3 cm (0.6 - 1.1) IVSs: 1.7 cm LVIDs: 1.6 cm LVPWs: 1.6 cm LAESV Index (A-L): 31.78 ml/m Ao Diam: 3.4 cm (2.0 - 3.7) AV Cusp: 1.9 cm (1.5 - 2.6) LA Diam: 2.8 cm (2.7 - 3.8) MV EXCURSION: 23.948 mm (> 18.000) MV EF SLOPE: 160 mm/s (70 - 150) EPSS: 2.0 cm RAP: 5.00 mmHg RVSP: 19.65 mmHg FINDINGS -------- Sinus rhythm with extra systolic beats. This was a technically good study. The left ventricular size is normal. There is mild concentric left ventricular hypertrophy. Overa ll left ventricular systolic function is normal with, an EF between 55 - 60 %. The right ventricle is normal in size. LA is midly dilated 29-33ml/m2. The right atrial size is normal. Interatrial and interventricular septum intact. The aortic valve is trileaflet and appears structurally normal. [id number] mitral regurgitation is present. Mild prolapse of the posterior mitral valve mele flet. Mild tricuspid regurgitation present. There is no evidence of pulmonary hypertension. The right v entricular systolic pressure, as measured by Doppler, is 19.65mmHg. There is no pulmonic regurgitation present. The aortic root size is normal. IVC Not well visulized. There is no pericardial effusion. CONCLUSIONS -------- 1. Sinus rhythm with extra systolic beats. 2. This was a technically good study. 3. The left ventricular size is normal. 4. There is mild concentric left ventricular hypertrophy. 5. Overall left ventricular systolic function is normal with, an EF between 55 - 60 %. 6. The right ventricle is normal in size. 7. LA is midly dilated 29-33ml/m2. 8. The right atrial size is normal. 9. Interatrial and interventricular septum intact. 10. The aortic valve is trileaflet and appears structurally normal. 11. Woeowkvv-sc-vlamov mitral regurgitation is present. 12. Mild prolapse of the posterior mitral valve leaflet. 13. Mild tricuspid regurgitation present. 14. There is no evidence of pulmonary hypertension. 15. The right ventricular systolic pressure, as measured by Doppler, is 19.65mmHg. 16. There is no pulmonic regurgitation present. 17. The aortic root size is normal. 18. IVC Not well visulized. 19. There is no pericardial effusion. ALMOND ROASTER: Shirlene Butcher RDCS
[2019-01-22 20:10] LABS: Glucose,Whole Blood 139 mg/dL (75-99)
[2019-01-22] MEDS: CHOLECALCIFEROL 1,000 UNIT TAB PO SCH (21:04)
[2019-01-22] MEDS: PRAMIPEXOLE 0.5 MG TAB PO SCH (21:04)
[2019-01-22] MEDS: MONTELUKAST 10 MG TAB PO SCH (21:04)
[2019-01-22] MEDS: MELATONIN 5 MG TABLET PO SCH (21:04)
[2019-01-22 21:20] LABS: Glucose,Whole Blood 121 mg/dL (75-99)
[2019-01-23] MEDS: ALBUTEROL NEBULIZED 2.5 MG/3 ML INHALATION PRN ×3 (00:06→23:44)
[2019-01-23] MEDS: HYDROmorphone 1 MG/ML 1 ML SYRINGE IVP PRN ×6 (05:42→23:11)
[2019-01-23 06:50] LABS: Glucose,Whole Blood 131 mg/dL (75-99)
[2019-01-23] MEDS: HYDROcodone/APAP 10-325MG 1 EACH TAB PO PRN ×3 (07:03→20:10)
[2019-01-23] MEDS: IPRATROPIUM-ALBUTEROL 3 ML NEB INHALATION SCH ×4 (07:11→19:59)
[2019-01-23] MEDS: ASCORBIC ACID 500 MG TAB PO SCH (07:45)
[2019-01-23] MEDS: METHIMAZOLE 5 MG TAB PO SCH (07:45)
[2019-01-23] MEDS: INSULIN ASPART (NovoLOG) 100 UNIT/ML VIAL SQ SCH ×4 (07:46→22:46)
[2019-01-23] MEDS: FAMOTIDINE 20 MG TAB PO SCH (07:46)
[2019-01-23] MEDS: DOCUSATE 100 MG CAP PO SCH ×2 (07:46→20:09)
[2019-01-23] MEDS: CEFEPIME 2 GM in SODIUM CHLORIDE 0.9% 100 ML IVPB SCH ×3 (07:46→23:10)
[2019-01-23] MEDS: ALPRAZolam 0.25 MG TAB PO PRN ×3 (07:46→23:12)
[2019-01-23] MEDS: methylPREDNISolone SOD SUCCI 40 MG/ML 1 ML VIAL IV SCH ×3 (07:46→23:11)
[2019-01-23] MEDS: guaiFENesin 600 MG TABLET.ER PO SCH ×2 (07:47→20:10)
[2019-01-23 08:41] LABS: Basophils % (A) 0 %; Eosinophils % (A) 0 %; HCT 42.6 % (34.0-46.0); HGB 13.1 gm/dL (11.4-16.0); Hypochromasia Slight; Lymphocytes # (A) 0.5 k/uL (1.0-4.8); Lymphocytes % (A) 4 %; MCH 29.5 pg (25.0-35.0); MCHC 30.9 g/dL (31.0-37.0); MCV 95.4 fL (80.0-100.0); Monocytes # (A) 0.6 k/uL (0-1.0); Monocytes % (A) 5 %; Neutrophils # (A) 9.4 k/uL (1.3-7.7); Neutrophils % (A) 87 %; Platelet Count 284 k/uL (150-450); RBC 4.46 m/uL (3.80-5.40); WBC 10.8 k/uL (3.8-10.6)
[2019-01-23 08:55] LABS: ALT 52 U/L (9-52); AST 32 U/L (14-36); African American GFR (CKD) >90 (>60 ml/min/1.73 sqM); Albumin 4.2 g/dL (3.5-5.0); Alkaline Phosphatase 91 U/L (38-126); Blood Urea Nitrogen 24 mg/dL (7-17); Calcium 9.1 mg/dL (8.4-10.2); Chloride 94 mmol/L (98-107); Glucose 114 mg/dL (74-99); Potassium 4.2 mmol/L (3.5-5.1); Sodium 142 mmol/L (137-145); Total Bilirubin 0.5 mg/dL (0.2-1.3)
[2019-01-23 09:01] LABS: Anion Gap 4 mmol/L
[2019-01-23 09:16] LABS: Carbon Dioxide 44 mmol/L (22-30)
--- NOTE | 2019-01-23 10:20 | P.PN ---
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 There is no prior history of coronary artery disease or heart failure. She has seen Dr. Goldsmith in the office one time in 2014 but has not followed up since. We have been asked to see her in consultation secondary to atrial fibrillation with rapid ventricular response. She is currently in sinus mechanism. During the episode of atrial fibrillation she describes burning in her chest and palpitations. This episode lasted for approximately 1 minute and subsided on its own. She states she has chronic lower extremity edema, she states she has been on oral steroids for the previous 2 months. EKGs been reviewed initially upon admission revealed sinus tachycardia and subsequently thereafter atrial fibrillation. Chest x-ray on admission reveals mild pulmonary fibrosis with no acute cardiopulmonary process. Upon examination this morning, patient continues to complain of significant shortness of breath but says this is improving daily and is better compared to yesterday. Echocardiogram done this admission showed normal LV systolic function with an ejection fraction between 55-60%, mildly dilated left atrium, moderate to severe mitral regurgitation, mild prolapse of the posterior mitral valve leaflet and mild tricuspid regurgitation with a normal RVSP. She continues to have lower extremity edema that seems to be unchanged. Objective - Vital Signs Vital signs: Vital Signs Temp 98.5 F 01/23/19 07:00 Pulse 83 01/23/19 07:22 Resp 18 01/23/19 07:00 BP 134/77 01/23/19 07:00 Pulse Ox 97 01/23/19 07:12 Intake & Output 01/22/19 01/23/19 01/23/19 18:59 06:59 18:59 Intake Total 100 100 500 Balance 100 100 500 Intake: Intake, IV Titration 100 Amount Cefepime 2 gm In Sodium 100 Chloride 0.9% 100 ml @ 200 mls/hr IVPB Q8HR [facility] Rx#:[id number] Oral 100 500 Other: Voiding Method Toilet # Voids 2 2 - Exam PHYSICAL EXAMINATION: HEENT: Head is atraumatic, normocephalic. Pupils equal, round. Neck is supple. There is no elevated jugular venous pressure. No carotid bruit. HEART EXAMINATION: Heart sounds regular, S1 and S2 with a systolic murmur. CHEST EXAMINATION: Lungs reveal dry crackles with expiratory wheezing throughout. No chest wall tenderness is noted on palpation or with deep breathing. ABDOMEN: Soft, nontender. Bowel sounds are heard. No organomegaly noted. EXTREMITIES: 2+ peripheral pulses with evidence of 1+ lower extremity edema and no calf tenderness noted. NEUROLOGIC patient is awake, alert and oriented x3. . - Labs CBC & Chem 7: 01/23/19 08:12 01/23/19 08:12 Labs: Abnormal Lab Results - Last 24 Hours (Table) 01/22/19 01/22/19 01/22/19 Range/Units 11:48 16:42 20:08 WBC (3.8-10.6) k/uL MCHC (31.0-37.0) g/dL Neutrophils # (1.3-7.7) k/uL Lymphocytes # (1.0-4.8) k/uL Chloride (98-107) mmol/L Carbon Dioxide (22-30) mmol/L BUN (7-17) mg/dL Creatinine (0.52-1.04) mg/dL Glucose (74-99) mg/dL POC Glucose (mg/dL) 125 H 144 H 139 H (75-99) mg/dL 01/22/19 01/23/19 01/23/19 Range/Units 21:08 06:49 08:12 WBC 10.8 H (3.8-10.6) k/uL MCHC 30.9 L (31.0-37.0) g/dL Neutrophils # 9.4 H (1.3-7.7) k/uL Lymphocytes # 0.5 L (1.0-4.8) k/uL Chloride (98-107) mmol/L Carbon Dioxide (22-30) mmol/L BUN (7-17) mg/dL Creatinine (0.52-1.04) mg/dL Glucose (74-99) mg/dL POC Glucose (mg/dL) 121 H 131 H (75-99) mg/dL 01/23/19 Range/Units 08:12 WBC (3.8-10.6) k/uL MCHC (31.0-37.0) g/dL Neutrophils # (1.3-7.7) k/uL Lymphocytes # (1.0-4.8) k/uL Chloride 94 L (98-107) mmol/L Carbon Dioxide 44 H* (22-30) mmol/L BUN 24 H (7-17) mg/dL Creatinine 0.40 L (0.52-1.04) mg/dL Glucose 114 H (74-99) mg/dL POC Glucose (mg/dL) (75-99) mg/dL Microbiology - Last 24 Hours (Table) 01/17/19 20:23 Blood Culture - Preliminary Blood No Growth after 120 hours Assessment and Plan Assessment: #1 Paroxysmal atrial fibrillation not on residential anticoagulation first diagnosed in 2014. Episodes of rapid ventricular response last night. Patient refuses anticoagulation states it causes significant hematomas. #2 acute COPD exacerbation #3 Hypertension #4 Valvular heart disease, moderate mitral regurgitation with mitral valve prolapse #5 Chronic hypoxic respiratory failure #6 History of hepatitis C Plan: From cardiology's perspective, medications were reviewed and we will continue the same. Suppressed TSH to be addressed by primary medical team. Discussed in detail the importance of long-term anticoagulation and its indication for thromboembolic protection against stroke and patient continues to decline and refuses long-term and circulation due to significant hematomas in the past. She is currently maintaining sinus rhythm. We will continue to follow the patient and provide further recommendations based upon her clinical course. Following discharge she will follow up with Dr. Leo. T RAIL TURNER note has been reviewed, I agree with a documented findings and plan of care. Patient was seen and examined.
[2019-01-23 11:30] LABS: Glucose,Whole Blood 184 mg/dL (75-99)
--- NOTE | 2019-01-23 11:31 | P.PN ---
Subjective Progress Note Date: 01/23/19 Lula Weathers is a 63-year-old female who presented to [facility] emergency room with a chief complaint of cough and worsening shortness of breath over the last 4 days patient stated that she was in her normal state of health until about 1 week ago when she started having worsening fatigue and weakness she started having worsening shortness of breath and cough with white to yellow sputum production about 4 days ago otherwise she denies any complaints there is no fever or chills no headache or dizziness no chest pain no nausea or vomiting no abdominal pain no diarrhea and no urinary symptoms. Patient has a known history of advanced COPD was chronic hypoxic respiratory failure maintained on a home oxygen she was maintained on steroids at home until about 1 week ago she states her symptoms started when her course of steroids ended. 01/20/2019 patient still feeling short of breath with activity. She is asking for increase in her pain medication. She is complaining of back pain and abdominal discomfort. She is complaining of constipation reports his been about 4 days since her last bowel movement. She also refused the Pulmicort. She states that the Pulmicort makes her feel funny. She denies any chest pain, nausea or vomiting, urinary symptoms. White count 14.4 CO2 is 33. Right leg Doppler was negative for DVT. Sputum culture is pending. 01/21/2019 patient is still complaining of shortness of breath and requiring extra breathing treatments. Pulmonary service is following. She remains on IV steroids. Patient has become tachycardic heart rate in the 1 teens to 120s. EKG ordered and showing atrial fibrillation with a heart rate of 106. Patient has been placed on telemetry monitoring thyroid levels been ordered and cardiology is been placed on consult. She denies any chest pain. Denies any nausea or vomiting. Denies any bowel changes or urinary symptoms. She is complaining of her chronic back pain and neck pain. And asking for increase in pain medication. Dilaudid has been increased to 1 mg every 3 hours as needed for pain. Patient also reporting that she is having difficulty sleeping due to her pain. On 01/22/2019 patient is alert and oriented 3. Patient still having some shortness of breath. Cardiology services have been consulted for atrial fibrillation. Patient had episode lasting approximately 1 minute with heart rate in the 140s. TSH level checked and is low at 0.039. Tapazole has been added. Patient also having increased peripheral edema. 20 mg Lasix IV once has been ordered. At this time patient is stating improvement with her shortness of breath. Continue current plan of care. Patient denies chest pain patient denies nausea vomiting or diarrhea. Patient denies any urinary burning or frequency. 01/23/2019 patient still complaining of shortness of breath. She has converted from A. fib to sinus rhythm. Heart rate is been in the 70s to 80s. Tapazole was added yesterday. Echo shows an EF of 55-60% with moderate to severe mitral regurgitation. CO2 is up at 44. Patient's oxygen will be placed back down to 2 L. She is currently on 3 L at 97%. She denies any chest pain, nausea or vomiting, bowel movement changes or urinary symptoms. Patient did receive 1 dose of IV Lasix yesterday for lower extremity edema Objective - Vital Signs Vital signs: Vital Signs Temp 98.5 F 01/23/19 07:00 Pulse 91 01/23/19 11:20 Resp 18 01/23/19 07:00 BP 134/77 01/23/19 07:00 Pulse Ox 97 01/23/19 07:12 Intake & Output 01/22/19 01/23/19 01/23/19 18:59 06:59 18:59 Intake Total 100 100 500 Balance 100 100 500 Intake: Intake, IV Titration 100 Amount Cefepime 2 gm In Sodium 100 Chloride 0.9% 100 ml @ 200 mls/hr IVPB Q8HR [facility] Rx#:[id number] Oral 100 500 Other: Voiding Method Toilet # Voids 2 2 - Exam Head normocephalic Neck supple Lungs wheezing noted bilaterally Heart regular Abdomen is soft nontender nondistended positive bowel sounds no hepatosplenomegaly Extremities +1 edema bilateral lower extremities Neuro alert and orientated to 3 - Labs CBC & Chem 7: 01/23/19 08:12 01/23/19 08:12 Labs: Abnormal Lab Results - Last 24 Hours (Table) 01/22/19 01/22/19 01/22/19 Range/Units 11:48 16:42 20:08 WBC (3.8-10.6) k/uL MCHC (31.0-37.0) g/dL Neutrophils # (1.3-7.7) k/uL Lymphocytes # (1.0-4.8) k/uL Chloride (98-107) mmol/L Carbon Dioxide (22-30) mmol/L BUN (7-17) mg/dL Creatinine (0.52-1.04) mg/dL Glucose (74-99) mg/dL POC Glucose (mg/dL) 125 H 144 H 139 H (75-99) mg/dL 01/22/19 01/23/19 01/23/19 Range/Units 21:08 06:49 08:12 WBC 10.8 H (3.8-10.6) k/uL MCHC 30.9 L (31.0-37.0) g/dL Neutrophils # 9.4 H (1.3-7.7) k/uL Lymphocytes # 0.5 L (1.0-4.8) k/uL Chloride (98-107) mmol/L Carbon Dioxide (22-30) mmol/L BUN (7-17) mg/dL Creatinine (0.52-1.04) mg/dL Glucose (74-99) mg/dL POC Glucose (mg/dL) 121 H 131 H (75-99) mg/dL 01/23/19 Range/Units 08:12 WBC (3.8-10.6) k/uL MCHC (31.0-37.0) g/dL Neutrophils # (1.3-7.7) k/uL Lymphocytes # (1.0-4.8) k/uL Chloride 94 L (98-107) mmol/L Carbon Dioxide 44 H* (22-30) mmol/L BUN 24 H (7-17) mg/dL Creatinine 0.40 L (0.52-1.04) mg/dL Glucose 114 H (74-99) mg/dL POC Glucose (mg/dL) (75-99) mg/dL Microbiology - Last 24 Hours (Table) 01/17/19 20:23 Blood Culture - Preliminary Blood No Growth after 120 hours Assessment and Plan Assessment: #1 acute exacerbation of chronic obstructive pulmonary disease: Continue bronchodilators and IV Solu-Medrol. Pulmonary service following #2 acute on chronic hypoxic respiratory failure #3 underlying history of paroxysmal atrial fibrillation: Not on anticoagulation due to history of bleeding with epistaxis and hematomas. Patient did have atrial fibrillation with rapid ventricular response has converted back to normal sinus rhythm. Patient refuses anticoagulation. Patient's Cardizem has been increased to 360 mg daily #4 underlying history of congestive heart failure #5 underlying history of coronary artery disease #6 underlying history of chronic back pain #7 previous history of pseudomonas aeruginosa pneumonia #8 constipation add Colace and lactulose #9 leukocytosis secondary to steroids. Resolved #10 hyperglycemia secondary to steroids continue sliding scale coverage #11 possible acute tracheobronchitis: No evidence of pneumonia on chest x-ray. Previous history of Pseudomonas pneumonia. Patient currently on IV cefepime. Initial sputum culture growing normal respiratory jh. Repeat sputum culture pending #12 history of hepatitis C #13 chronic pain of the back and neck. We'll increase her Dilaudid 1 mg every 3 hours as needed #14 hyperthyroidism. TSH checked. TSH level 0.039. Tapazole 5 mg daily has been added due to patient having increased heart rate due to A. fib. Patient wi ll follow up with endocrinology outpatient for further. #15 increased peripheral edema. Lasix 20 mg IV once will be ordered. #16 elevated CO2 of 44 decrease her oxygen from 3 L to 2 L. We'll await further recommendations per pulmonary service GI prophylaxis Protonix and DVT prophylaxis Lovenox I performed an examination of the patient and discussed their management with e physician Emergency Room Clinician. I have reviewed the Physician Emergency Room Clinician's notes and agree with the documented findings and plan of care
[2019-01-23 14:32] VITALS: BMI 26.9
--- NOTE | 2019-01-23 16:14 | P.PN ---
Subjective Progress Note Date: 01/23/19 01/23/2019: Patient seen and examined for follow-up. The patient states that she is not feeling much better. She states she is still wheezing and short of breath. The patient's O2 saturation on 2 L nasal cannula. She does complain of continued cough. Her carbon dioxide is up to 44 today. Objective - Vital Signs Vital signs: Vital Signs Temp 98.5 F 01/23/19 15:00 Pulse 104 H 01/23/19 16:01 Resp 18 01/23/19 15:00 BP 173/85 01/23/19 15:00 Pulse Ox 94 L 01/23/19 15:00 Intake & Output 01/22/19 01/23/19 01/23/19 18:59 06:59 18:59 Intake Total 100 100 740 Balance 100 100 740 Weight 62.7 kg Intake: Intake, IV Titration 100 Amount Cefepime 2 gm In Sodium 100 Chloride 0.9% 100 ml @ 200 mls/hr IVPB Q8HR [facility] Rx#:[id number] Oral 100 740 Other: Voiding Method Toilet # Voids 2 2 - Exam GENERAL EXAM: Alert, active, comfortable in no apparent distress. LUNGS: Diminished breath sounds bilaterally with scattered faint expiratory wheezing CVS: S1 and S2 normal ABDOMEN: No hepatosplenomegaly, normal bowel sounds, no guarding or rigidity. EXTREMITIES: No edema noted, pedal pulses palpable. CENTRAL NERVOUS SYSTEM: No focal deficits, tone is normal in all 4 extremities. - Labs CBC & Chem 7: 01/23/19 08:12 01/23/19 08:12 Labs: Abnormal Lab Results - Last 24 Hours (Table) 01/22/19 01/22/19 01/22/19 Range/Units 16:42 20:08 21:08 WBC (3.8-10.6) k/uL MCHC (31.0-37.0) g/dL Neutrophils # (1.3-7.7) k/uL Lymphocytes # (1.0-4.8) k/uL Chloride (98-107) mmol/L Carbon Dioxide (22-30) mmol/L BUN (7-17) mg/dL Creatinine (0.52-1.04) mg/dL Glucose (74-99) mg/dL POC Glucose (mg/dL) 144 H 139 H 121 H (75-99) mg/dL 01/23/19 01/23/19 01/23/19 Range/Units 06:49 08:12 08:12 WBC 10.8 H (3.8-10.6) k/uL MCHC 30.9 L (31.0-37.0) g/dL Neutrophils # 9.4 H (1.3-7.7) k/uL Lymphocytes # 0.5 L (1.0-4.8) k/uL Chloride 94 L (98-107) mmol/L Carbon Dioxide 44 H* (22-30) mmol/L BUN 24 H (7-17) mg/dL Creatinine 0.40 L (0.52-1.04) mg/dL Glucose 114 H (74-99) mg/dL POC Glucose (mg/dL) 131 H (75-99) mg/dL 01/23/19 Range/Units 11:28 WBC (3.8-10.6) k/uL MCHC (31.0-37.0) g/dL Neutrophils # (1.3-7.7) k/uL Lymphocytes # (1.0-4.8) k/uL Chloride (98-107) mmol/L Carbon Dioxide (22-30) mmol/L BUN (7-17) mg/dL Creatinine (0.52-1.04) mg/dL Glucose (74-99) mg/dL POC Glucose (mg/dL) 184 H (75-99) mg/dL Microbiology - Last 24 Hours (Table) 01/20/19 20:30 Gram Stain - Final Sputum Sputum Culture - Final Kendal albicans 01/17/19 20:23 Blood Culture - Preliminary Blood No Growth after 120 hours Assessment and Plan Assessment: COPD, acute exacerbation Acute on Chronic hypoxemic respiratory failure, dependent on home O2 at all time s Chronic persistent moderate asthma with acute exacerbation 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 Chest x-ray reviewed Continue with antibiotics CTA today Diamox Continue with pulmonary hygiene, coughing and deep breathing exercises, and supportive care. Supplemental oxygen to maintain oxygen saturations of 90% or better. Initiate and encourage incentive spirometer GI and DVT prophylaxis. Increase activity as tolerated We will continue to monitor labs/results and adjust treatment as necessary. Further recommendations pending. Ashvin Hale Mucinex PT and OT CT scan from 01/14/19 reviewed - follow up CT in 1 year
[2019-01-23 16:35] LABS: Glucose,Whole Blood 103 mg/dL (75-99)
--- NOTE | 2019-01-23 18:26 | CT ---
EXAMINATION TYPE: CT angio chest DATE OF EXAM: 01/23/2019 6:11 PM COMPARISON: 03/18/2018 HISTORY: Hypoxia and shortness of breath. CT DLP: 249.4 mGycm Automated exposure control for dose reduction was used. CONTRAST: CTA scan of the thorax is performed with IV Contrast, patient injected with 66ml mL of Isovue 370, pu lmonary embolism protocol. . There are 3-D post processed images. FINDINGS: There is diffuse pulmonary emphysema. The lungs are clear of consolidation. There is no evidence of a pulmonary mass. There is no pleural effusion. Thoracic aorta is atheromatous. I see no bony destruct chester process. There is osteopenia. There is 30% anterior wedging of T6 vertebra. There is thoracolumba r levoscoliosis. I see no filling defects in the pulmonary arteries. There is no mediastinal adenopathy. There are no hilar masses. Thoracic aorta shows no aneurysm or dissection. IMPRESSION: NO EVIDENCE OF PULMONARY EMBOLISM. NO ADVERSE CHANGE COMPARED TO OLD EXAM. PULMONARY EMPHYSEMA. OLD T 6 COMPRESSION FRACTURE. NO CHANGE.
[2019-01-23] MEDS: PRAMIPEXOLE 0.5 MG TAB PO SCH (20:10)
[2019-01-23] MEDS: DILTIAZEM CD 180 MG CAP.ER.24H PO SCH (20:10)
[2019-01-23] MEDS: MONTELUKAST 10 MG TAB PO SCH (20:10)
[2019-01-23] MEDS: MELATONIN 5 MG TABLET PO SCH (20:10)
[2019-01-23] MEDS: CHOLECALCIFEROL 1,000 UNIT TAB PO SCH (20:11)
[2019-01-23 20:39] LABS: Glucose,Whole Blood 158 mg/dL (75-99)
[2019-01-24] MEDS: ALBUTEROL NEBULIZED 2.5 MG/3 ML INHALATION PRN (03:51)
[2019-01-24] MEDS: HYDROmorphone 1 MG/ML 1 ML SYRINGE IVP PRN ×2 (04:31→08:23)
[2019-01-24] MEDS: HYDROcodone/APAP 10-325MG 1 EACH TAB PO PRN ×4 (04:31→22:57)
[2019-01-24 07:03] LABS: Glucose,Whole Blood 109 mg/dL (75-99)
[2019-01-24] MEDS: INSULIN ASPART (NovoLOG) 100 UNIT/ML VIAL SQ SCH ×4 (07:18→20:31)
[2019-01-24] MEDS: IPRATROPIUM-ALBUTEROL 3 ML NEB INHALATION SCH ×4 (07:59→20:34)
[2019-01-24 08:02] LABS: Basophils % (A) 0 %; Eosinophils % (A) 0 %; HCT 43.6 % (34.0-46.0); HGB 13.4 gm/dL (11.4-16.0); Hypochromasia Moderate; Lymphocytes # (A) 0.4 k/uL (1.0-4.8); Lymphocytes % (A) 4 %; MCH 29.9 pg (25.0-35.0); MCHC 30.7 g/dL (31.0-37.0); MCV 97.6 fL (80.0-100.0); Monocytes # (A) 0.7 k/uL (0-1.0); Monocytes % (A) 6 %; Neutrophils # (A) 10.8 k/uL (1.3-7.7); Neutrophils % (A) 87 %; Platelet Count 275 k/uL (150-450); RBC 4.47 m/uL (3.80-5.40); RDW 13.8 % (11.5-15.5); WBC 12.4 k/uL (3.8-10.6)
[2019-01-24] MEDS: methylPREDNISolone SOD SUCCI 40 MG/ML 1 ML VIAL IV SCH (08:21)
[2019-01-24 08:22] LABS: ALT 85 U/L (9-52); AST 42 U/L (14-36); African American GFR (CKD) >90 (>60 ml/min/1.73 sqM); Albumin 4.2 g/dL (3.5-5.0); Alkaline Phosphatase 92 U/L (38-126); Anion Gap 4 mmol/L; Blood Urea Nitrogen 21 mg/dL (7-17); Calcium 9.3 mg/dL (8.4-10.2); Carbon Dioxide 39 mmol/L (22-30); Chloride 98 mmol/L (98-107); Glucose 104 mg/dL (74-99); Potassium 4.2 mmol/L (3.5-5.1); Sodium 141 mmol/L (137-145); Total Bilirubin 0.6 mg/dL (0.2-1.3); Total Protein 6.8 g/dL (6.3-8.2)
[2019-01-24] MEDS: DOCUSATE 100 MG CAP PO SCH ×2 (08:24→22:03)
[2019-01-24] MEDS: CEFEPIME 2 GM in SODIUM CHLORIDE 0.9% 100 ML IVPB SCH ×2 (08:24→16:00)
[2019-01-24] MEDS: guaiFENesin 600 MG TABLET.ER PO SCH ×2 (08:24→22:04)
[2019-01-24] MEDS: ENOXAPARIN 40 MG/0.4 ML SYRINGE SQ SCH (08:24)
[2019-01-24] MEDS: ASCORBIC ACID 500 MG TAB PO SCH (08:24)
[2019-01-24] MEDS: FAMOTIDINE 20 MG TAB PO SCH (08:24)
[2019-01-24] MEDS: METHIMAZOLE 5 MG TAB PO SCH (08:24)
[2019-01-24] MEDS: ALPRAZolam 0.25 MG TAB PO PRN ×2 (08:52→17:15)
[2019-01-24 11:43] LABS: Glucose,Whole Blood 153 mg/dL (75-99)
--- NOTE | 2019-01-24 12:40 | P.PN ---
Subjective Progress Note Date: 01/24/19 Lula Weathers is a 63-year-old female who presented to [facility] emergency room with a chief complaint of cough and worsening shortness of breath over the last 4 days patient stated that she was in her normal state of health until about 1 week ago when she started having worsening fatigue and weakness she started having worsening shortness of breath and cough with white to yellow sputum production about 4 days ago otherwise she denies any complaints there is no fever or chills no headache or dizziness no chest pain no nausea or vomiting no abdominal pain no diarrhea and no urinary symptoms. Patient has a known history of advanced COPD was chronic hypoxic respiratory failure maintained on a home oxygen she was maintained on steroids at home until about 1 week ago she states her symptoms started when her course of steroids ended. 01/20/2019 patient still feeling short of breath with activity. She is asking for increase in her pain medication. She is complaining of back pain and abdominal discomfort. She is complaining of constipation reports his been about 4 days since her last bowel movement. She also refused the Pulmicort. She states that the Pulmicort makes her feel funny. She denies any chest pain, nausea or vomiting, urinary symptoms. White count 14.4 CO2 is 33. Right leg Doppler was negative for DVT. Sputum culture is pending. 01/21/2019 patient is still complaining of shortness of breath and requiring extra breathing treatments. Pulmonary service is following. She remains on IV steroids. Patient has become tachycardic heart rate in the 1 teens to 120s. EKG ordered and showing atrial fibrillation with a heart rate of 106. Patient has been placed on telemetry monitoring thyroid levels been ordered and cardiology is been placed on consult. She denies any chest pain. Denies any nausea or vomiting. Denies any bowel changes or urinary symptoms. She is complaining of her chronic back pain and neck pain. And asking for increase in pain medication. Dilaudid has been increased to 1 mg every 3 hours as needed for pain. Patient also reporting that she is having difficulty sleeping due to her pain. On 01/22/2019 patient is alert and oriented 3. Patient still having some shortness of breath. Cardiology services have been consulted for atrial fibrillation. Patient had episode lasting approximately 1 minute with heart rate in the 140s. TSH level checked and is low at 0.039. Tapazole has been added. Patient also having increased peripheral edema. 20 mg Lasix IV once has been ordered. At this time patient is stating improvement with her shortness of breath. Continue current plan of care. Patient denies chest pain patient denies nausea vomiting or diarrhea. Patient denies any urinary burning or frequency. 01/23/2019 patient still complaining of shortness of breath. She has converted from A. fib to sinus rhythm. Heart rate is been in the 70s to 80s. Tapazole was added yesterday. Echo shows an EF of 55-60% with moderate to severe mitral regurgitation. CO2 is up at 44. Patient's oxygen will be placed back down to 2 L. She is currently on 3 L at 97%. She denies any chest pain, nausea or vomiting, bowel movement changes or urinary symptoms. Patient did receive 1 dose of IV Lasix yesterday for lower extremity edema 01/24/2019 patient sitting at bedside chair. Still complaining of some shortness of breath but does note some improvement. Her cough is loosening. She is refused her Mucinex and Lovenox. She has been using the Dilaudid every 3 hours. Patient has been educated that we need to wean her off of this medication. The Dilaudid will be decreased back from 1 mg IV every 3 hours as needed to to 0.5 mg every 8 hours as needed. Patient is complaining of some cloudy urine and discomfort with urinating as well as some right flank pain. Urinalysis and culture of been ordered. Sputum culture growing normal respiratory jh with a few Kendal albicans. White count is up at 12.4 pa tient is on steroids. CTA of the chest ordered by pulmonary service was negative for PE and no acute changes. It did reveal an old T6 compression fracture which patient is aware of. Pulmonary service did add Diamox yesterday her last dose is tomorrow morning. CO2 has decreased from 44-39 and she is currently on 2 L standing and 98%. Patient denies any chest pain, nausea or vomiting or bowel movement changes Objective - Vital Signs Vital signs: Vital Signs Temp 98.1 F 01/24/19 07:00 Pulse 96 01/24/19 11:31 Resp 16 01/24/19 07:00 BP 119/71 01/24/19 07:00 Pulse Ox 98 01/24/19 07:00 Intake & Output 01/23/19 01/24/1901/24/19 18:59 06:59 18:59 Intake Total 740 480 Balance 740 480 Weight 62.7 kg Intake: Oral 740 480 Other: Voiding Method Toilet # Voids 2 - Exam Head normocephalic Neck supple Lungs expiratory wheezing noted bilaterally Heart regular Abdomen is soft nontender nondistended positive bowel sounds no hepatosplenomegaly Extremities trace edema bilateral lower extremities. No calf tenderness bilaterally Neuro alert and orientated to 3 - Labs CBC & Chem 7: 01/24/19 07:44 01/24/19 07:44 Labs: Abnormal Lab Results - Last 24 Hours (Table) 01/23/19 01/23/19 01/24/19 Range/Units 16:32 20:27 06:52 WBC (3.8-10.6) k/uL MCHC (31.0-37.0) g/dL Neutrophils # (1.3-7.7) k/uL Lymphocytes # (1.0-4.8) k/uL Carbon Dioxide (22-30) mmol/L BUN (7-17) mg/dL Creatinine (0.52-1.04) mg/dL Glucose (74-99) mg/dL POC Glucose (mg/dL) 103 H 158 H 109 H (75-99) mg/dL AST (14-36) U/L ALT (9-52) U/L 01/24/19 01/24/19 01/24/19 Range/Units 07:44 07:44 11:31 WBC 12.4 H (3.8-10.6) k/uL MCHC 30.7 L (31.0-37.0) g/dL Neutrophils # 10.8 H (1.3-7.7) k/uL Lymphocytes # 0.4 L (1.0-4.8) k/uL Carbon Dioxide 39 H (22-30) mmol/L BUN 21 H (7-17) mg/dL Creatinine 0.48 L (0.52-1.04) mg/dL Glucose 104 H (74-99) mg/dL POC Glucose (mg/dL) 153 H (75-99) mg/dL AST 42 H (14-36) U/L ALT 85 H (9-52) U/L Microbiology - Last 24 Hours (Table) 06/07/19 20:23 Blood Culture - Final Blood No Growth after 144 hours 01/20/19 20:30 Gram Stain - Final Sputum Sputum Culture - Final Kendal albicans Assessment and Plan Assessment: #1 acute exacerbation of chronic obstructive pulmonary disease: Continue bronchodilators and IV Solu-Medrol. Pulmonary service following #2 acute on chronic hypoxic respiratory failure #3 underlying history of paroxysmal atrial fibrillation: Not on anticoagulation due to history of bleeding with epistaxis and hematomas. Patient did have atrial fibrillation with rapid ventricular response has converted back to normal sinus rhythm. Patient refuses anticoagulation. Patient's Cardizem has been increased to 360 mg daily #4 underlying history of congestive heart failure #5 underlying history of coronary artery disease #6 underlying history of chronic back pain #7 previous history of pseudomonas aeruginosa pneumonia #8 constipation add Colace and lactulose #9 leukocytosis secondary to steroids. Resolved #10 hyperglycemia secondary to steroids continue sliding scale coverage #11 possible acute tracheobronchitis: No evidence of pneumonia on chest x-ray. Previous history of Pseudomonas pneumonia. Patient currently on IV cefepime. Sputum culture growing normal respiratory jh and a few Kendal albicans #13 chronic pain of the back and neck. We'll increase her Dilaudid 1 mg every 3 hours as needed #14 hyperthyroidism. TSH checked. TSH level 0.039. Tapazole 5 mg daily has been added due to patient having increased heart rate due to A. fib. Patient will follow up with endocrinology outpatient for further. #15 increased peripheral edema. Lasix 20 mg IV once will be ordered. #16 elevated CO2 of 44 decrease her oxygen from 3 L to 2 L. pulmonary services added Diamox 250 mg IV every 12 hours for 4 doses. Last dose is tomorrow morning. CO2 has come down from 44-39 #17 mildly elevated LFTs: Repeat labs in a.m. GI prophylaxis Protonix and DVT prophylaxis Lovenox patient has been refusing the Lovenox. SCDs have been ordered. Patient has been ambulating. Encourage patient to ambulate Decrease the IV Dilaudid 0.5 mg IV every 8 hours as needed Await further recommendations per pulmonary service I performed an examination of the patient and discussed their management with the physician Concrete Float Maker. I have reviewed the Physician Concrete Float Maker's notes and agree with the documented findings and plan of care
[2019-01-24 13:50] LABS: Appearance,Urine Cloudy (Clear); Bilirubin,Urine Negative (Negative); Blood,Urine Negative (Negative); Color,Urine Light Yellow; Glucose,Urine (UA) Negative (Negative); Hyaline Casts,Urine 1 /lpf (0-2); Ketones,Urine Negative (Negative); Leukocyte Esterase,Urine Negative (Negative); Mucus,Urine Rare /hpf; Nitrite,Urine Negative (Negative); PH, Urine 7.5 (5.0-8.0); Protein,Urine Negative (Negative); RBC,Urine <1 /hpf (0-5); Squamous Epithelial Cell,Urine <1 /hpf (0-4); Urobilinogen,Urine <2.0 mg/dL (<2.0); WBC,Urine <1 /hpf (0-5)
--- NOTE | 2019-01-24 14:25 | PN ---
PROGRESS NOTE Mrs. Weathers is a 63-year-old female with known history of paroxysmal atrial fibrillation, chronic obstructive lung disease, who presented with exacerbation of COPD. She had been having episode of paroxysmal atrial fibrillation, but she is in sinus mechanism at this time. Patient has declined anticoagulation in the past. She is feeling better overall. She is coughing, bringing up sputum. She denies any chest pain, no palpitation. She denies any nausea. She continues to be at this time on, , Ceftin, diltiazem CD 300 mg daily, Lovenox subcu, insulin, Tapazole, methylprednisolone, Singulair, and Mirapex. PHYSICAL EXAMINATION: Blood pressure 119/70 with a heart rate in the 80s. LUNGS: With decreased air exchange, no wheezes. HEART: Regular rate and rhythm, S1, S2. No S3 with systolic murmur, no diastolic murmur. ABDOMEN: Soft, nontender. EXTREMITIES: No significant edema. LAB DATA: Revealed a hemoglobin 13.4, BUN and creatinine 21 and 0.48. IMPRESSION: 1. Exacerbation of chronic obstructive pulmonary disease. 2. Paroxysmal atrial fibrillation, patient declined anticoagulation in the past. 3. History of mitral regurgitation, moderate to severe. 4. History of hypertension. 5. Chronic hypoxic respiratory failure. 6. History of hepatitis C. RECOMMENDATION: From the cardiac standpoint, will continue present therapy. Once she is stable, she can be discharged home. Follow up with Dr. Leo on a regular basis to follow up on her mitral regurgitation and see if she is a candidate for intervention. MMODL / IJN: [id number] /
--- NOTE | 2019-01-24 14:57 | P.PN ---
Subjective Progress Note Date: 01/24/19 01/24/2018: Patient seen and examined. Patient is sitting up in the chair and in no acute distress. She is currently on 2 L nasal cannula. O2 saturation is 97%. The patient states that "I need a diagnosis otherwise they're going to take me out." The patient's CT results are discussed with her at length. The patient has known emphysema. No changes in her computed tomography scan. No pulmonary embolism. The patient did work with physical therapy earlier and had no distress. The patient is given the option of pulmonary rehab and inpatient rehab however she is adamantly declining. Objective - Vital Signs Vital signs: Vital Signs Temp 98.7 F 01/24/19 14:43 Pulse 79 01/24/19 14:43 Resp 14 01/24/19 14:43 BP 153/80 01/24/19 14:43 Pulse Ox 96 01/24/19 14:43 Intake & Output 01/23/19 01/24/19 01/24/19 18:59 06:59 18:59 Intake Total 740 480 Balance 740 480 Weight 62.7 kg Intake: Oral 740 480 Other: Voiding Method Toilet # Voids 2 4 - Exam GENERAL EXAM: Alert, active, comfortable in no apparent distress. LUNGS: Diminished breath sounds bilaterally with scattered faint expiratory wheezing CVS: S1 and S2 normal ABDOMEN: No hepatosplenomegaly, normal bowel sounds, no guarding or rigidity. EXTREMITIES: No edema noted, pedal pulses palpable. CENTRAL NERVOUS SYSTEM: No focal deficits, tone is normal in all 4 extremities. - Labs CBC & Chem 7: 01/24/19 07:44 01/24/19 07:44 Labs: Abnormal Lab Results - Last 24 Hours (Table) 01/23/19 01/23/19 01/24/19 Range/Units 16:32 20:27 06:52 WBC (3.8-10.6) k/uL MCHC (31.0-37.0) g/dL Neutrophils # (1.3-7.7) k/uL Lymphocytes # (1.0-4.8) k/uL Carbon Dioxide (22-30) mmol/L BUN (7-17) mg/dL Creatinine (0.52-1.04) mg/dL Glucose (74-99) mg/dL POC Glucose (mg/dL) 103 H 158 H 109 H (75-99) mg/dL AST (14-36) U/L ALT (9-52) U/L Urine Appearance (Clear) Urine Mucus (None) /hpf 01/24/19 01/24/19 01/24/19 Range/Units 07:44 07:44 11:31 WBC 12.4 H (3.8-10.6) k/uL MCHC 30.7 L (31.0-37.0) g/dL Neutrophils # 10.8 H (1.3-7.7) k/uL Lymphocytes # 0.4 L (1.0-4.8) k/uL Carbon Dioxide 39 H (22-30) mmol/L BUN 21 H (7-17) mg/dL Creatinine 0.48 L (0.52-1.04) mg/dL Glucose 104 H (74-99) mg/dL POC Glucose (mg/dL) 153 H (75-99) mg/dL AST 42 H (14-36) U/L ALT 85 H (9-52) U/L Urine Appearance (Clear) Urine Mucus (None) /hpf 01/24/19 Range/Units 13:00 WBC (3.8-10.6) k/uL MCHC (31.0-37.0) g/dL Neutrophils # (1.3-7.7) k/uL Lymphocytes # (1.0-4.8) k/uL Carbon Dioxide (22-30) mmol/L BUN (7-17) mg/dL Creatinine (0.52-1.04) mg/dL Glucose (74-99) mg/dL POC Glucose (mg/dL) (75-99) mg/dL AST (14-36) U/L ALT (9-52) U/L Urine Appearance Cloudy H (Clear) Urine Mucus Rare H (None) /hpf Microbiology - Last 24 Hours (Table) 01/17/19 20:23 Blood Culture - Final Blood No Growth after 144 hours 01/20/19 20:30 Gram Stain - Final Sputum Sputum Culture - Final Kendal albicans Assessment and Plan Assessment: COPD, acute exacerbation Acute on Chronic hypoxemic respiratory failure, dependent on home O2 at all times Chronic persistent moderate asthma with acute exacerbation 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 Continue with antibiotics Diamox Continue with pulmonary hygiene, coughing and deep breathing exercises, and supportive care. Supplemental oxygen to maintain oxygen saturations of 90% or better. Initiate and encourage incentive spirometry GI and DVT prophylaxis. Increase activity as tolerated We will continue to monitor labs/results and adjust treatment as necessary. Further recommendations pending. Ashvin Hale Mucinex PT and OT CT scan from 01/14/19 reviewed - follow up CT in 1 year for pulmonary nodules Diamox x 2 more doses Would DC sedative medications Ok to DC tomorrow from pulmonary standpoint. Follow up in office next week
[2019-01-24] MEDS: HYDROmorphone 0.5 MG/0.5 ML SYRINGE IVP PRN (16:01)
[2019-01-24 17:12] LABS: Glucose,Whole Blood 93 mg/dL (75-99)
[2019-01-24 20:09] LABS: Glucose,Whole Blood 176 mg/dL (75-99)
[2019-01-24] MEDS: DILTIAZEM CD 180 MG CAP.ER.24H PO SCH (22:03)
[2019-01-24] MEDS: CHOLECALCIFEROL 1,000 UNIT TAB PO SCH (22:03)
[2019-01-24] MEDS: MONTELUKAST 10 MG TAB PO SCH (22:03)
[2019-01-24] MEDS: MELATONIN 5 MG TABLET PO SCH (22:03)
[2019-01-24] MEDS: PRAMIPEXOLE 0.5 MG TAB PO SCH (22:03)
[2019-01-25] MEDS: ALBUTEROL NEBULIZED 2.5 MG/3 ML INHALATION PRN ×2 (00:05→05:15)
[2019-01-25] MEDS: HYDROmorphone 0.5 MG/0.5 ML SYRINGE IVP PRN (01:06)
[2019-01-25] MEDS: CEFEPIME 2 GM in SODIUM CHLORIDE 0.9% 100 ML IVPB SCH ×3 (01:07→11:54)
[2019-01-25] MEDS: ALPRAZolam 0.25 MG TAB PO PRN ×2 (02:02→09:36)
[2019-01-25] MEDS: HYDROcodone/APAP 10-325MG 1 EACH TAB PO PRN ×2 (05:46→12:50)
[2019-01-25 07:25] LABS: Glucose,Whole Blood 70 mg/dL (75-99)
[2019-01-25 08:08] LABS: Basophils % (A) 0 %; Eosinophils % (A) 0 %; HCT 46.3 % (34.0-46.0); HGB 14.1 gm/dL (11.4-16.0); Hypochromasia Moderate; Lymphocytes % (A) 12 %; MCH 29.6 pg (25.0-35.0); MCHC 30.5 g/dL (31.0-37.0); MCV 96.9 fL (80.0-100.0); Mean Platelet Volume 7.2; Monocytes # (A) 1.2 k/uL (0-1.0); Monocytes % (A) 7 %; Neutrophils # (A) 12.2 k/uL (1.3-7.7); Neutrophils % (A) 76 %; Platelet Count 296 k/uL (150-450); RBC 4.77 m/uL (3.80-5.40); WBC 16.1 k/uL (3.8-10.6)
[2019-01-25 08:34] LABS: ALT 99 U/L (9-52); AST 46 U/L (14-36); African American GFR (CKD) >90 (>60 ml/min/1.73 sqM); Albumin 4.1 g/dL (3.5-5.0); Alkaline Phosphatase 99 U/L (38-126); Anion Gap 5 mmol/L; Blood Urea Nitrogen 24 mg/dL (7-17); Calcium 9.4 mg/dL (8.4-10.2); Carbon Dioxide 37 mmol/L (22-30); Chloride 101 mmol/L (98-107); Glucose 66 mg/dL (74-99); Potassium 4.2 mmol/L (3.5-5.1); Sodium 143 mmol/L (137-145); Total Bilirubin 0.6 mg/dL (0.2-1.3); Total Protein 6.7 g/dL (6.3-8.2)
[2019-01-25] MEDS: IPRATROPIUM-ALBUTEROL 3 ML NEB INHALATION SCH ×3 (08:35→16:05)
[2019-01-25] MEDS ORDERED: predniSONE 20 MG TAB PO SCH (09:00)
[2019-01-25] MEDS: INSULIN ASPART (NovoLOG) 100 UNIT/ML VIAL SQ SCH ×2 (09:32→12:51)
[2019-01-25] MEDS: ASCORBIC ACID 500 MG TAB PO SCH (09:34)
[2019-01-25] MEDS: METHIMAZOLE 5 MG TAB PO SCH (09:34)
[2019-01-25] MEDS: DOCUSATE 100 MG CAP PO SCH (09:34)
[2019-01-25] MEDS: FAMOTIDINE 20 MG TAB PO SCH (09:35)
[2019-01-25] MEDS: ENOXAPARIN 40 MG/0.4 ML SYRINGE SQ SCH (09:36)
[2019-01-25] MEDS: guaiFENesin 600 MG TABLET.ER PO SCH (09:36)
[2019-01-25 09:41] VITALS: RESP 16
--- NOTE | 2019-01-25 11:02 | P.PN ---
Subjective Progress Note Date: 01/25/19 Principal diagnosis: See below 01/25/2019, patient seen eval reexamined during the rounds, patient is still feeling short of breath, denies any chest pain, denies any hemoptysis, she is sitting upright on the bed on 2 L nasal cannula computed tomography scan of the chest reviewed, patient denies ECF placement Objective - Vital Signs Vital signs: Vital Signs Temp 98.7 F 01/25/19 07:00 Pulse 76 01/25/19 08:53 Resp 16 01/25/19 07:00 BP 135/67 01/25/19 07:00 Pulse Ox 97 01/25/19 07:00 Intake & Output 01/24/19 01/25/19 01/25/19 18:59 06:59 18:59 Intake Total 960 318 Balance 960 318 Weight 62.3 kg Intake: Oral 960 318 Other: Voiding Method Toilet # Voids 4 1 - Exam GENERAL EXAM: Alert, active, comfortable in no apparent distress. LUNGS: Diminished breath sounds bilaterally with scattered faint expiratory wheezing CVS: S1 and S2 normal ABDOMEN: No hepatosplenomegaly, normal bowel sounds, no guarding or rigidity. EXTREMITIES: No edema noted, pedal pulses palpable. CENTRAL NERVOUS SYSTEM: No focal deficits, tone is normal in all 4 extremities. - Labs CBC & Chem 7: 01/25/19 07:12 01/25/19 07:12 Labs: Abnormal Lab Results - Last 24 Hours (Table) 01/24/19 01/24/19 01/24/19 Range/Units 11:31 13:00 19:58 WBC (3.8-10.6) k/uL Hct (34.0-46.0) % MCHC (31.0-37.0) g/dL Neutrophils # (1.3-7.7) k/uL Monocytes # (0-1.0) k/uL Carbon Dioxide (22-30) mmol/L BUN (7-17) mg/dL Glucose (74-99) mg/dL POC Glucose (mg/dL) 153 H 176 H (75-99) mg/dL AST (14-36) U/L ALT (9-52) U/L Urine Appearance Cloudy H (Clear) Urine Mucus Rare H (None) /hpf 01/25/19 01/25/19 01/25/19 Range/Units 07:12 07:12 07:20 WBC 16.1 H (3.8-10.6) k/uL Hct 46.3 H (34.0-46.0) % MCHC 30.5 L (31.0-37.0) g/dL Neutrophils # 12.2 H (1.3-7.7) k/uL Monocytes # 1.2 H (0-1.0) k/uL Carbon Dioxide 37 H (22-30) mmol/L BUN 24 H (7-17) mg/dL Glucose 66 L (74-99) mg/dL POC Glucose (mg/dL) 70 L (75-99) mg/dL AST 46 H (14-36) U/L ALT 99 H (9-52) U/L Urine Appearance (Clear) Urine Mucus (None) /hpf Microbiology - Last 24 Hours (Table) 01/24/19 13:00 Urine Culture - Preliminary Urine,Clean Catch Assessment and Plan Assessment: Acute exacerbation of COPD Acute on chronic hypoxic respiratory failure Chronic persistent asthma with acute exacerbation Bronchiectasis Bullous emphysema History of pulmonary nodules Plan: Continue IV steroids can be tapered gradually Antibiotics Deep breathing exercise incentive spirometry Supplemental oxygen DVT at peptic ulcer disease prophylaxis Agree with discharge planning Bronchodilator Chest PT Patient to follow with [facility] [employer] for repeat computed tomography scan for nodule
--- NOTE | 2019-01-25 15:02 | P.DS ---
Providers Date of admission: 01/17/19 22:57 Expected date of discharge: 01/25/19 Attending physician: Ning Lock Consults: 01/17/19 22:56 Consult Physician Routine Consulting Provider: Jey Webster Consult Reason/Comments: COPD Do you want consulting provider notified?: Yes 01/21/19 13:06 Consult Physician Routine Consulting Provider: Artem Hampton Consult Reason/Comments: Afib RVR Do you want consulting provider notified?: Yes Primary care physician: Ning [facility] Course: Diagnoses on discharge: #1 acute exacerbation of chronic obstructive pulmonary disease: Continue bronchodilators and IV Solu-Medrol. Pulmonary service following #2 acute on chronic hypoxic respiratory failure #3 underlying history of paroxysmal atrial fibrillation: Not on anticoagulation due to history of bleeding with epistaxis and hematomas. Patient did have atrial fibrillation with rapid ventricular response has converted back to normal sinus rhythm. Patient refuses anticoagulation. Patient's Cardizem has been increased to 360 mg daily #4 underlying history of congestive heart failure #5 underlying history of coronary artery disease #6 underlying history of chronic back pain #7 previous history of pseudomonas aeruginosa pneumonia #8 constipation add Colace and lactulose #9 leukocytosis secondary to steroids. Resolved #10 hyperglycemia secondary to steroids continue sliding scale coverage #11 possible acute tracheobronchitis: No evidence of pneumonia on chest x-ray. Previous history of Pseudomonas pneumonia. Patient currently on IV cefepime. Sputum culture growing normal respiratory jh and a few Kendal albicans #13 chronic pain of the back and neck. We'll increase her Dilaudid 1 mg every 3 hours as needed #14 hyperthyroidism. TSH checked. TSH level 0.039. Tapazole 5 mg daily has been added due to patient having increased heart rate due to A. fib. Patient will follow up with endocrinology outpatient for further. #15 increased peripheral edema. Lasix 20 mg IV once will be ordered. #16 elevated CO2 of 44 decrease her oxygen from 3 L to 2 L. pulmonary services added Diamox 250 mg IV every 12 hours for 4 doses. Last dose is tomorrow morning. CO2 has come down from 44-39 #17 mildly elevated LFTs: Repeat labs in a.m. Hospital course: Lula Weathers is a 63-year-old female who presented to [facility] emergency room with a chief complaint of cough and worsening shortness of breath over the last 4 days patient stated that she was in her normal state of health until about 1 week ago when she started having worsening fatigue and weakness she started having worsening shortness of breath and cough with white to yellow sputum production about 4 days ago otherwise she denies any complaints there is no fever or chills no headache or dizziness no chest pain no nausea or vomiting no abdominal pain no diarrhea and no urinary symptoms. Patient has a known history of advanced COPD was chronic hypoxic respiratory failure maintained on a home oxygen she was maintained on steroids at home until about 1 week ago she states her symptoms started when her course of steroids ended. 01/20/2019 patient still feeling short of breath with activity. She is asking for increase in her pain medication. She is complaining of back pain and abdominal discomfort. She is complaining of constipation reports his been about 4 days since her last bowel movement. She also refused the Pulmicort. She states that the Pulmicort makes her feel funny. She denies any chest pain, nausea or vomiting, urinary symptoms. White count 14.4 CO2 is 33. Right leg Doppler was negative for DVT. Sputum culture is pending. 01/21/2019 patient is still complaining of shortness of breath and requiring extra breathing treatments. Pulmonary service is following. She remains on IV steroids. Patient has become tachycardic heart rate in the 1 teens to 120s. EKG ordered and showing atrial fibrillation with a heart rate of 106. Patient has been placed on telemetry monitoring thyroid levels been ordered and cardiology is been placed on consult. She denies any chest pain. Denies any nausea or vomiting. Denies any bowel changes or urinary symptoms. She is complaining of her chronic back pain and neck pain. And asking for increase in pain medication. Dilaudid has been increased to 1 mg every 3 hours as needed for pain. Patient also reporting that she is having difficulty sleeping due to her pain. On 01/22/2019 patient is alert and oriented 3. Patient still having some shortness of breath. Cardiology services have been consulted for atrial fibrillation. Patient had episode lasting approximately 1 minute with heart rate in the 140s. TSH level checked and is low at 0.039. Tapazole has been added. Patient also having increased peripheral edema. 20 mg Lasix IV once has been ordered. At this time patient is stating improvement with her shortness of breath. Continue current plan of care. Patient denies chest pain patient denies nausea vomiting or diarrhea. Patient denies any urinary burning or frequency. 01/23/2019 patient still complaining of shortness of breath. She has converted from A. fib to sinus rhythm. Heart rate is been in the 70s to 80s. Tapazole was added yesterday. Echo shows an EF of 55-60% with moderate to severe mitral regurgitation. CO2 is up at 44. Patient's oxygen will be placed back down to 2 L. She is currently on 3 L at 97%. She denies any chest pain, nausea or vomiting, bowel movement changes or urinary symptoms. Patient did receive 1 dose of IV Lasix yesterday for lower extremity edema 01/24/2019 patient sitting at bedside chair. Still complaining of some shortness of breath but does note some improvement. Her cough is loosening. She is refused her Mucinex and Lovenox. She has been using the Dilaudid every 3 hours. Patient has been educated that we need to wean her off of this medicatio n. The Dilaudid will be decreased back from 1 mg IV every 3 hours as needed to to 0.5 mg every 8 hours as needed. Patient is complaining of some cloudy urine and discomfort with urinating as well as some right flank pain. Urinalysis and culture of been ordered. Sputum culture growing normal respiratory jh with a few Kendal albicans. White count is up at 12.4 patient is on steroids. CTA of the chest ordered by pulmonary service was negative for PE and no acute changes. It did reveal an old T6 compression fracture which patient is aware of. Pulmonary service did add Diamox yesterday her last dose is tomorrow morning. CO2 has decreased from 44-39 and she is currently on 2 L standing and 98%. Patient denies any chest pain, nausea or vomiting or bowel movement changes On 01/25/2019 patient was seen and examined on the medical floor she is alert and oriented 3 in no apparent distress her shortness of breath has improved she has occasional cough otherwise she denies any complaints there is no fever or chills no headache or dizziness no chest pain no nausea or vomiting no abdominal pain no diarrhea and no urinary symptoms. At this time medication and labs were reviewed patient is stable she will be switched to oral antibiotic and oral steroids and will be discharged home today Will follow in the office in 2-3 days. Patient Condition at Discharge: Stable Plan - Discharge Summary Discharge Rx Participant: Yes New Discharge Prescriptions: New Diltiazem Cd [Cardizem CD] 360 mg PO HS cap.er.24h Cefuroxime Axetil [Ceftin] 500 mg PO BID 10 Days #20 tab guaiFENesin [Mucinex] 1,200 mg PO Q12HR tablet.er predniSONE 60 mg PO DAILY tab Methimazole [Tapazole] 5 mg PO DAILY tab Continue Pramipexole [Mirapex] 0.5 mg PO HS Cholecalciferol [Vitamin D3 (25 Mcg = 1000 Iu)] 2,000 unit PO HS Omeprazole 20 mg PO BID Beclomethasone Dipropionate [Qvar 80 mcg] 2 puff INHALATION RT-BID Montelukast [Singulair] 10 mg PO HS #30 tab Ipratropium-Albuterol Nebulize [Duoneb 0.5 mg-3 mg/3 ml Soln] 3 ml INHALATION RT-QID PRN PRN Reason: Shortness Of Breath HYDROcodone/APAP 10-325MG [[place] 10-325] 1 tab PO Q6H PRN #12 tab PRN Reason: Pain Melatonin 10 mg PO HS ALPRAZolam [Xanax] 0.25 mg PO Q8HR PRN 3 Days #9 tab PRN Reason: Anxiety Albuterol Inhaler [Ventolin Hfa Inhaler] 1 - 2 puff INHALATION RT-Q6H PRN PRN Reason: Shortness Of Breath Ascorbic Acid [Vitamin C] 1,000 mg PO DAILY Fluticasone Nasal [place] [Flonase Nasal [place]] 2 spray EA NOSTRIL DAILY PRN #1 bottle PRN Reason: Allergy Symptoms Discontinued Diltiazem Cd [Cardizem CD] 240 mg PO HS Budesonide [Pulmicort Flexhaler] 2 puff INHALATION RT-BID Discharge Medication List Pramipexole [Mirapex] 0.5 mg PO HS 09/28/15 [History] Cholecalciferol [Vitamin D3 (25 Mcg = 1000 Iu)] 2,000 unit PO HS 02/02/16 [History] Omeprazole 20 mg PO BID 02/02/16 [History] Beclomethasone Dipropionate [Qvar 80 mcg] 2 puff INHALATION RT-BID 11/14/16 [History] Montelukast [Singulair] 10 mg PO HS #30 tab 02/12/17 [Rx] Ipratropium-Albuterol Nebulize [Duoneb 0.5 mg-3 mg/3 ml Soln] 3 ml INHALATION RT-QID PRN 05/31/18 [History] HYDROcodone/APAP 10-325MG [[place] 10-325] 1 tab PO Q6H PRN #12 tab 06/20/18 [Rx] Melatonin 10 mg PO HS 07/03/18 [History] ALPRAZolam [Xanax] 0.25 mg PO Q8HR PRN 3 Days #9 tab 07/12/18 [Rx] Albuterol Inhaler [Ventolin Hfa Inhaler] 1 - 2 puff INHALATION RT-Q6H PRN 10/13 [History] Ascorbic Acid [Vitamin C] 1,000 mg PO DAILY 11/09/18 [History] Fluticasone Nasal [place] [Flonase Nasal [place]] 2 spray EA NOSTRIL DAILY PRN #1 bottle 11/12/18 [Rx] Cefuroxime Axetil [Ceftin] 500 mg PO BID 10 Days #20 tab 01/25/19 [Rx] Diltiazem Cd [Cardizem CD] 360 mg PO HS cap.er.24h 01/25/19 [Rx] Methimazole [Tapazole] 5 mg PO DAILY tab 01/25/19 [Rx] guaiFENesin [Mucinex] 1,200 mg PO Q12HR tablet.er 01/25/19 [Rx] predniSONE 60 mg PO DAILY tab 01/25/19 [Rx] Follow up Appointment(s)/Referral(s): Charles Leo MD [STAFF PHYSICIAN] - 3 Weeks (Please make appointment to see Dr. Felipa Farley's PA in 3 weeks prior to patient being discharged. ) [facility] [NON-STAFF] - As Needed Ning Lock MD [Primary Care Provider] - 1-2 days
[2019-01-25 16:21] VITALS: BP 144/75; PULSE 76; TEMP 98.3
== END 2019-01-25 16:49 | disposition home or self-care (01) | DRG 190 ==
LOC: EC 19:57 → 4SSUR 22:57
PROVIDERS: ADMIT Internal Medicine; ATTEND Internal Medicine
DX: J43.9 Emphysema, unspecified (principal); J96.21 Acute and chronic respiratory failure with hypoxia; J45.41 Moderate persistent asthma with (acute) exacerbation; E44.0 Moderate protein-calorie malnutrition; J47.1 Bronchiectasis with (acute) exacerbation; I47.1 Supraventricular tachycardia; I11.0 Hypertensive heart disease with heart failure; I50.9 Heart failure, unspecified; I48.0 Paroxysmal atrial fibrillation; J84.10 Pulmonary fibrosis, unspecified; M41.9 Scoliosis, unspecified; J20.9 Acute bronchitis, unspecified; T38.0X5A Adverse effect of glucocorticoids and synthetic analogues, initial encounter; D72.829 Elevated white blood cell count, unspecified; I34.1 Nonrheumatic mitral (valve) prolapse; I34.0 Nonrheumatic mitral (valve) insufficiency; G89.29 Other chronic pain; M54.9 Dorsalgia, unspecified; M54.2 Cervicalgia; G47.9 Sleep disorder, unspecified; R26.2 Difficulty in walking, not elsewhere classified; M19.90 Unspecified osteoarthritis, unspecified site; B19.20 Unspecified viral hepatitis C without hepatic coma; I25.10 Atherosclerotic heart disease of native coronary artery without angina pectoris; E05.90 Thyrotoxicosis, unspecified without thyrotoxic crisis or storm; K21.9 Gastro-esophageal reflux disease without esophagitis; M81.0 Age-related osteoporosis without current pathological fracture; R73.9 Hyperglycemia, unspecified; R91.8 Other nonspecific abnormal finding of lung field; K58.9 Irritable bowel syndrome, unspecified; F43.10 Post-traumatic stress disorder, unspecified; F32.9 Major depressive disorder, single episode, unspecified; I25.2 Old myocardial infarction; Z68.26 Body mass index [BMI] 26.0-26.9, adult; Z99.81 Dependence on supplemental oxygen; Z79.51 Long term (current) use of inhaled steroids; Z79.899 Other long term (current) drug therapy; Z87.01 Personal history of pneumonia (recurrent); Z87.891 Personal history of nicotine dependence; Z85.41 Personal history of malignant neoplasm of cervix uteri; Z87.81 Personal history of (healed) traumatic fracture; Z86.19 Personal history of other infectious and parasitic diseases; Z90.49 Acquired absence of other specified parts of digestive tract; Z98.891 History of uterine scar from previous surgery; Z87.440 Personal history of urinary (tract) infections; Z87.19 Personal history of other diseases of the digestive system; Z98.49 Cataract extraction status, unspecified eye; Z88.1 Allergy status to other antibiotic agents; Z88.2 Allergy status to sulfonamides; Z82.49 Family history of ischemic heart disease and other diseases of the circulatory system; Z80.8 Family history of malignant neoplasm of other organs or systems; Z80.3 Family history of malignant neoplasm of breast; Z80.7 Family history of other malignant neoplasms of lymphoid, hematopoietic and related tissues; Z80.1 Family history of malignant neoplasm of trachea, bronchus and lung; Z81.1 Family history of alcohol abuse and dependence; Z83.79 Family history of other diseases of the digestive system; Z83.6 Family history of other diseases of the respiratory system
CPT/HCPCS: 36415; 71046; 71275; 80053; 81001; 83605; 83735; 83880; 84439; 84443; 84484; 85025; 85379; 85610; 85730; 87040; 87070; 87086; 87205; 93005; 93306; 94640; 94760; 96374; 96375; 99291

== ENCOUNTER 2019-02-02 15:35 | Inpatient (IN) | payer OTHER ==
[2019-02-02] MEDS ORDERED: SODIUM CHLORIDE 0.9% 1,000 ML IV STA (16:00)
[2019-02-02] MEDS ORDERED: SODIUM CHLORIDE 0.9% 1,000 ML IV ONE (16:42)
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
[2019-02-02] MEDS ORDERED: KETOROLAC 30 MG/ML 1 ML VIAL IVP STA (16:48)
[2019-02-02] MEDS ORDERED: ONDANSETRON 4 MG/2 ML VIAL IVP STA (16:48)
[2019-02-02] MEDS ORDERED: MORPHINE SULFATE 4 MG/ML SYRINGE IVP STA (16:48)
[2019-02-02] MEDS ORDERED: ACETAMINOPHEN TAB 500 MG TAB PO STA (16:48)
[2019-02-02 16:58] LABS: Basophils % (A) 0 %; Eosinophils % (A) 0 %; HGB 13.2 gm/dL (11.4-16.0); Lymphocytes # (A) 0.5 k/uL (1.0-4.8); Lymphocytes % (A) 2 %; MCH 28.9 pg (25.0-35.0); MCHC 31.5 g/dL (31.0-37.0); Monocytes # (A) 1.2 k/uL (0-1.0); Monocytes % (A) 5 %; Neutrophils # (A) 23.6 k/uL (1.3-7.7); Neutrophils % (A) 92 %; Platelet Count 189 k/uL (150-450); RBC 4.58 m/uL (3.80-5.40); RDW 15.1 % (11.5-15.5); WBC 25.6 k/uL (3.8-10.6)
[2019-02-02 17:00] LABS: INR 1.1 (<1.2); Partial Thromboplastin Time 24.6 sec (22.0-30.0); Prothrombin Time 11.3 sec (9.0-12.0)
[2019-02-02] MEDS: SODIUM CHLORIDE 0.9% 1,000 ML IV SCH (17:00)
[2019-02-02 17:01] LABS: MCV 91.8 fL (80.0-100.0)
[2019-02-02 17:02] LABS: ALT 57 U/L (9-52); AST 22 U/L (14-36); African American GFR (CKD) >90 (>60 ml/min/1.73 sqM); Alkaline Phosphatase 84 U/L (38-126); Amylase <30 U/L (30-110); Anion Gap 7 mmol/L; Blood Urea Nitrogen 17 mg/dL (7-17); Calcium 8.1 mg/dL (8.4-10.2); Carbon Dioxide 34 mmol/L (22-30); Chloride 93 mmol/L (98-107); Glucose 121 mg/dL (74-99); Lipase <10 U/L (23-300); Potassium 3.9 mmol/L (3.5-5.1); Sodium 134 mmol/L (137-145); Total Protein 5.4 g/dL (6.3-8.2)
--- NOTE | 2019-02-02 17:45 | CT ---
EXAMINATION TYPE: CT abdomen pelvis w con DATE OF EXAM: 02/02/2019 COMPARISON: 07/03/2018 HISTORY: Abdominal pain and diarrhea CT DLP: 581.6 mGycm Automated exposure control for dose reduction was used. TECHNIQUE: Helical acquisition of images was performed from the lung bases through the pelvis. CONTRAST: Performed without Oral Contrast and with IV Contrast, patient injected with 100 mL of Isovue 300. FINDINGS: Lung bases are clear of consolidation. There is no pleural effusion. Heart size is normal. There is n o pericardial effusion. Liver shows no focal defect. There is mild ectasia of the common bile duct. Intrahepatic bile ducts a re not dilated. Spleen appears normal. There is cholecystectomy. There is no evidence of pancreatic m ass. Stomach has normal size. There is no adrenal mass. Kidneys show satisfactory contrast opacification. There is no hydronephrosi s. There is 2 mm calculus posterior left kidney. There is 1 cm cortical cyst posterior left kidney. T here is no retroperitoneal adenopathy. There is mild free fluid in the pelvis. Bladder distends smoothly. Uterus is anteverted. There is 3 c m cyst on the left ovary. There is no mesenteric edema. There are small ventral hernia contains omental fat. There is no eviden ce of intestinal obstruction. There is no free air. There is thoracolumbar levoscoliosis. There is no compression fracture in the lumbar spine. Bony pelvis appears intact. The appendix appears normal. T here is mild wall thickening of the proximal sigmoid colon. There is wall thickening of the cecum wit h edema. IMPRESSION: THERE IS MILD ASCITES FLUID THAT IS A CHANGE COMPARED TO OLD EXAM. MILD WALL THICKENING OF THE SIGMOI D COLON CONSISTENT WITH MILD COLITIS. THIS APPEARS IMPROVED COMPARED TO OLD CT SCAN. There is increas ed wall thickening of the cecum consistent with colitis that is a change compared to old exam.. Left ovarian cyst unchanged.
--- NOTE | 2019-02-02 17:47 | XR ---
EXAMINATION TYPE: XR chest 2V DATE OF EXAM: 02/02/2019 COMPARISON: NONE HISTORY: Chest pain TECHNIQUE: Frontal and lateral views of the chest are obtained. FINDINGS: Heart is normal. Lungs are clear of consolidation. Thoracic aorta is atheromatous. There i s no pleural effusion. There is osteopenia. IMPRESSION: No active cardiopulmonary disease. No change.
[2019-02-02 18:52] LABS: Appearance,Urine Clear (Clear); Bilirubin,Urine Negative (Negative); Blood,Urine Negative (Negative); Color,Urine Yellow; Glucose,Urine (UA) Negative (Negative); Ketones,Urine 1+ (Negative); Leukocyte Esterase,Urine Negative (Negative); Nitrite,Urine Negative (Negative); PH, Urine 6.5 (5.0-8.0); Protein,Urine Trace (Negative); Urobilinogen,Urine <2.0 mg/dL (<2.0)
[2019-02-02 18:58] LABS: Specific Gravity,Urine >1.050 (1.001-1.035)
[2019-02-02] MEDS ORDERED: KETOROLAC 30 MG/ML 1 ML VIAL IVP PRN (19:12)
[2019-02-02] MEDS ORDERED: MORPHINE SULFATE 4 MG/ML SYRINGE IV PRN (19:12)
[2019-02-02] MEDS ORDERED: NALOXONE 0.4 MG/ML 1 ML VIAL IV PRN (19:12)
[2019-02-02] MEDS ORDERED: FLUTICASONE 50MCG/SPRAY NASAL 16GM EA NOSTRIL PRN (20:27)
[2019-02-02] MEDS ORDERED: IPRATROPIUM-ALBUTEROL 3 ML NEB INHALATION PRN ×2 (20:27→21:53)
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
[2019-02-02] MEDS: MELATONIN 5 MG TABLET PO SCH (22:05)
[2019-02-02] MEDS: MONTELUKAST 10 MG TAB PO SCH (22:05)
[2019-02-02] MEDS: HYDROmorphone 0.5 MG/0.5 ML SYRINGE IVP PRN (22:05)
[2019-02-02] MEDS: DILTIAZEM CD 180 MG CAP.ER.24H PO SCH (22:33)
[2019-02-02] MEDS: VANCOMYCIN ORAL SOLUTION 250 MG/5 ML BOTTLE PO SCH (22:33)
[2019-02-02] MEDS: PRAMIPEXOLE 0.5 MG TAB PO SCH (22:33)
[2019-02-02] MEDS: HYDROcodone/APAP 10-325MG 1 EACH TAB PO PRN (23:06)
[2019-02-02] MEDS: IPRATROPIUM-ALBUTEROL 3 ML NEB INHALATION SCH (23:10)
[2019-02-02] MEDS: HEPARIN SODIUM,PORCINE 5,000 UNIT/ML 1 ML VIAL SQ SCH (23:34)
[2019-02-03] MEDS: HYDROmorphone 0.5 MG/0.5 ML SYRINGE IVP PRN ×6 (01:11→21:34)
[2019-02-03] MEDS: VANCOMYCIN ORAL SOLUTION 250 MG/5 ML BOTTLE PO SCH ×4 (01:11→17:45)
[2019-02-03] MEDS: SODIUM CHLORIDE 0.9% 1,000 ML IV SCH ×3 (03:15→23:15)
[2019-02-03] MEDS: IPRATROPIUM-ALBUTEROL 3 ML NEB INHALATION SCH ×5 (03:26→21:11)
[2019-02-03] MEDS: HYDROcodone/APAP 10-325MG 1 EACH TAB PO PRN ×3 (05:06→17:45)
[2019-02-03 07:14] LABS: Glucose,Whole Blood 65 mg/dL (75-99)
[2019-02-03] MEDS: INSULIN ASPART (NovoLOG) 100 UNIT/ML VIAL SQ SCH ×4 (07:30→23:03)
[2019-02-03 07:39] LABS: Glucose,Whole Blood 110 mg/dL (75-99)
[2019-02-03 08:52] LABS: Basophils % (A) 0 %; Eosinophils % (A) 0 %; HCT 38.8 % (34.0-46.0); Hypochromasia Slight; Lymphocytes # (A) 0.8 k/uL (1.0-4.8); Lymphocytes % (A) 3 %; MCH 29.2 pg (25.0-35.0); MCHC 30.9 g/dL (31.0-37.0); MCV 94.5 fL (80.0-100.0); Mean Platelet Volume 8.6; Monocytes # (A) 1.3 k/uL (0-1.0); Monocytes % (A) 5 %; Neutrophils # (A) 21.8 k/uL (1.3-7.7); Neutrophils % (A) 90 %; Platelet Count 191 k/uL (150-450); RBC 4.11 m/uL (3.80-5.40); RDW 14.7 % (11.5-15.5); WBC 24.2 k/uL (3.8-10.6)
[2019-02-03] MEDS: FLUTICASONE 110 MCG INHALER INHALATION SCH ×2 (09:11→21:11)
[2019-02-03 09:17] LABS: ALT 45 U/L (9-52); AST 21 U/L (14-36); African American GFR (CKD) >90 (>60 ml/min/1.73 sqM); Albumin 2.3 g/dL (3.5-5.0); Alkaline Phosphatase 91 U/L (38-126); Anion Gap 7 mmol/L; Blood Urea Nitrogen 15 mg/dL (7-17); Calcium 7.9 mg/dL (8.4-10.2); Carbon Dioxide 29 mmol/L (22-30); Chloride 98 mmol/L (98-107); Glucose 104 mg/dL (74-99); Potassium 3.6 mmol/L (3.5-5.1); Sodium 134 mmol/L (137-145); Total Bilirubin 0.8 mg/dL (0.2-1.3); Total Protein 4.5 g/dL (6.3-8.2)
[2019-02-03] MEDS: PANTOPRAZOLE 40 MG/10 ML VIAL IV SCH (09:27)
[2019-02-03] MEDS: METHIMAZOLE 5 MG TAB PO SCH (09:27)
[2019-02-03] MEDS: predniSONE 20 MG TAB PO SCH (09:27)
[2019-02-03] MEDS: HEPARIN SODIUM,PORCINE 5,000 UNIT/ML 1 ML VIAL SQ SCH ×3 (09:30→23:15)
--- NOTE | 2019-02-03 11:25 | P.PN ---
Subjective Progress Note Date: 02/03/19 patient was covered by [facility] physicians on 02/02/2019 This is a 63-year-old female patient who presented with abdominal pain. Patient was recently admitted for acute tracheobronchitis and COPD exacerbation. Patient reports that over the weekend she had increased nausea and diarrhea. Patient reports that throughout Sunday abdominal pain and diarrhea became increasingly worse and she presented to the ER for further evaluation. Patient was recently discharged home on Ceftin and prednisone taper. Patient also reports fever and chills. She has a known past medical history COPD with oxygen dependence, CAD, heart failure, GERD, hypertension, myocardial infarction, mitral valve prolapse, osteoporosis, paroxysmal atrial fibrillation, IBS and C. diff in 2015. Stool for C. diff positive. CT of abdomen and pelvis completed showing mild ascites fluid that is change compared to old exam. Mild wall thickening of the sigmoid colon consistent with mild colitis. This appears improved compared to old computed tomography scan there is increased wall thickening of the cecum consistent with colitis this change compared to old exam. Chest x-ray completed showing no active cardiopulmonary disease. No change. EKG completed showing sinus rhythm with occasional premature ventricular complexes. On 02/03/2019 patient is alert and oriented 3. At this time patient is still complaining of abdominal pain. Patient reports she had 4 loose stools tonight. Patient denies chest pain or shortness of breath. Patient denies nausea but no emesis. She denies any urinary burning or frequency. Objective - Vital Signs Vital signs: Vital Signs Temp 100.1 F H 02/03/19 07:00 Pulse 80 02/03/19 09:27 Resp 20 02/03/19 07:00 BP 95/50 02/03/19 07:00 Pulse Ox 94 L 02/03/19 07:00 Intake & Output 02/02/19 02/03/19 02/03/19 18:59 06:59 18:59 Intake Total 2998 375 Balance 2998 375 Weight 56.699 kg 60.5 kg Intake: Intake, IV Titration 2998 Amount Sodium Chloride 0.9% 1, 1000 000 ml @ 100 mls/hr IV . Q10H ROXY Rx#:[id number] Sodium Chloride 0.9% 1, 999 000 ml @ 999 mls/hr IV . Q1H1M ONE Rx#:[id number] Sodium Chloride 0.9% 1, 999 000 ml @ 999 mls/hr IV . Q1H1M STA Rx#:[id number] Oral 375 Other: # Voids 4 - Exam Head normocephalic Neck supple Lungs clear to auscultation bilaterally no wheezing or crackles Heart regular rate and rhythm S1-S2, no rub or gallop Abdomen is soft tender to palpation Extremities no edema Neuro alert and orientated to 3 - Labs CBC & Chem 7: 02/03/19 07:29 02/03/19 07:29 Labs: Abnormal Lab Results - Last 24 Hours (Table) 02/02/19 02/02/19 02/02/19 Range/Units 16:36 16:36 16:36 WBC 25.6 H (3.8-10.6) k/uL MCHC (31.0-37.0) g/dL Neutrophils # 23.6 H (1.3-7.7) k/uL Lymphocytes # 0.5 L (1.0-4.8) k/uL Monocytes # 1.2 H (0-1.0) k/uL Sodium 134 L (137-145) mmol/L Chloride 93 L (98-107) mmol/L Carbon Dioxide 34 H (22-30) mmol/L Creatinine 0.34 L (0.52-1.04) mg/dL Glucose 121 H (74-99) mg/dL POC Glucose (mg/dL) (75-99) mg/dL Calcium 8.1 L (8.4-10.2) mg/dL ALT 57 H (9-52) U/L Total Protein 5.4 L (6.3-8.2) g/dL Albumin 3.0 L (3.5-5.0) g/dL Amylase <30 L (30-110) U/L Lipase <10 L (23-300) U/L Ur Specific [place] >1.050 H (1.001-1.035) Urine Protein Trace H (Negative) Urine Ketones 1+ H (Negative) Stool Occult Blood (Negative) C. difficile (EIA) Intrp (Negative) 02/03/19 02/03/19 02/03/19 Range/Units 01:40 01:40 07:01 WBC (3.8-10.6) k/uL MCHC (31.0-37.0) g/dL Neutrophils # (1.3-7.7) k/uL Lymphocytes # (1.0-4.8) k/uL Monocytes # (0-1.0) k/uL Sodium (137-145) mmol/L Chloride (98-107) mmol/L Carbon Dioxide (22-30) mmol/L Creatinine (0.52-1.04) mg/dL Glucose (74-99) mg/dL POC Glucose (mg/dL) 65 L (75-99) mg/dL Calcium (8.4-10.2) mg/dL ALT (9-52) U/L Total Protein (6.3-8.2) g/dL Albumin (3.5-5.0) g/dL Amylase (30-110) U/L Lipase (23-300) U/L Ur Specific [place] (1.001-1.035) Urine Protein (Negative) Urine Ketones (Negative) Stool Occult Blood Positive H (Negative) C. difficile (EIA) Intrp Positive A (Negative) 02/03/19 02/03/19 02/03/19 Range/Units 07:27 07:29 07:29 WBC 24.2 H (3.8-10.6) k/uL MCHC 30.9 L (31.0-37.0) g/dL Neutrophils # 21.8 H (1.3-7.7) k/uL Lymphocytes # 0.8 L (1.0-4.8) k/uL Monocytes # 1.3 H (0-1.0) k/uL Sodium 134 L (137-145) mmol/L Chloride (98-107) mmol/L Carbon Dioxide (22-30) mmol/L Creatinine 0.39 L (0.52-1.04) mg/dL Glucose 104 H (74-99) mg/dL POC Glucose (mg/dL) 110 H (75-99) mg/dL Calcium 7.9 L (8.4-10.2) mg/dL ALT (9-52) U/L Total Protein 4.5 L (6.3-8.2) g/dL Albumin 2.3 L (3.5-5.0) g/dL Amylase (30-110) U/L Lipase (23-300) U/L Ur Specific [place] (1.001-1.035) Urine Protein (Negative) Urine Ketones (Negative) Stool Occult Blood (Negative) C. difficile (EIA) Intrp (Negative) Assessment and Plan Assessment: 1. Abdominal pain related to C. diff colitis with leukocytosis. CT of abdomen and pelvis completed showing mild ascites fluid that his change compared to old exam. Mild wall thickening of the sigmoid colon consistent with mild colitis. This appears improved compared to old computed tomography scan. Increased wall thickening of the cecum, consistent with colitis that his change compared to old exam patient started on oral vancomycin. Stool cultures ordered. Patient positive for C. diff 2. Chronic hypoxic respiratory failure maintained on home O2 3. Recent exacerbation of COPD and tracheobronchitis. Patient was discharged on antibiotics and prednisone taper. Patient was also underwent bronchoscopy. 4. History of paroxysmal atrial fibrillation. Patient refused anticoagulation during his hospitalization patient maintained on Cardizem. Patient reports history of bleeding with epitaxis and hematomas 5. History of congestive heart failure 6. History of coronary artery disease 7. History of chronic back pain 8. Hyperthyroidism. Patient maintained on Tapazole DVT prophylaxis heparin. GI prophylaxis Protonix I performed an examination of the patient and discussed their management with the Nurse Practitioner. I have reviewed the Nurse Practitioner's notes and agree with the documented findings and plan of care
[2019-02-03 12:06] LABS: Glucose,Whole Blood 86 mg/dL (75-99)
[2019-02-03 17:10] LABS: Glucose,Whole Blood 127 mg/dL (75-99)
[2019-02-03 23:07] LABS: Glucose,Whole Blood 79 mg/dL (75-99)
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
[2019-02-03] MEDS: DILTIAZEM CD 180 MG CAP.ER.24H PO SCH (23:11)
[2019-02-03] MEDS: MELATONIN 5 MG TABLET PO SCH (23:11)
[2019-02-03] MEDS: PRAMIPEXOLE 0.5 MG TAB PO SCH (23:11)
[2019-02-03] MEDS: MONTELUKAST 10 MG TAB PO SCH (23:11)
[2019-02-04] MEDS: IPRATROPIUM-ALBUTEROL 3 ML NEB INHALATION SCH ×7 (00:16→22:56)
[2019-02-04] MEDS: SODIUM CHLORIDE 0.9% 1,000 ML IV SCH ×2 (00:50→09:13)
[2019-02-04] MEDS: VANCOMYCIN ORAL SOLUTION 250 MG/5 ML BOTTLE PO SCH ×4 (00:51→17:33)
[2019-02-04] MEDS: HYDROmorphone 0.5 MG/0.5 ML SYRINGE IVP PRN ×6 (04:35→20:41)
[2019-02-04] MEDS: HYDROcodone/APAP 10-325MG 1 EACH TAB PO PRN ×3 (05:48→19:22)
[2019-02-04 07:24] LABS: Glucose,Whole Blood 67 mg/dL (75-99)
[2019-02-04 07:54] LABS: Basophils % (A) 0 %; Eosinophils # (A) 0.1 k/uL (0-0.7); Eosinophils % (A) 1 %; HCT 34.9 % (34.0-46.0); HGB 11.3 gm/dL (11.4-16.0); Hypochromasia Slight; Lymphocytes % (A) 7 %; MCH 30.6 pg (25.0-35.0); MCHC 32.3 g/dL (31.0-37.0); MCV 94.9 fL (80.0-100.0); Mean Platelet Volume 7.4; Monocytes # (A) 0.7 k/uL (0-1.0); Monocytes % (A) 5 %; Neutrophils # (A) 12.2 k/uL (1.3-7.7); Neutrophils % (A) 85 %; Platelet Count 171 k/uL (150-450); RBC 3.68 m/uL (3.80-5.40); RDW 14.2 % (11.5-15.5); WBC 14.3 k/uL (3.8-10.6)
[2019-02-04] MEDS: FLUTICASONE 110 MCG INHALER INHALATION SCH ×3 (07:55→20:33)
[2019-02-04] MEDS: predniSONE 20 MG TAB PO SCH (07:59)
[2019-02-04] MEDS: PANTOPRAZOLE 40 MG/10 ML VIAL IV SCH (07:59)
[2019-02-04] MEDS: METHIMAZOLE 5 MG TAB PO SCH (07:59)
[2019-02-04] MEDS: INSULIN ASPART (NovoLOG) 100 UNIT/ML VIAL SQ SCH ×4 (08:00→20:22)
[2019-02-04] MEDS: HEPARIN SODIUM,PORCINE 5,000 UNIT/ML 1 ML VIAL SQ SCH ×2 (08:03→15:53)
[2019-02-04 08:06] LABS: ALT 36 U/L (9-52); AST 20 U/L (14-36); African American GFR (CKD) >90 (>60 ml/min/1.73 sqM); Albumin 2.2 g/dL (3.5-5.0); Alkaline Phosphatase 64 U/L (38-126); Anion Gap 7 mmol/L; Blood Urea Nitrogen 11 mg/dL (7-17); Calcium 7.4 mg/dL (8.4-10.2); Carbon Dioxide 28 mmol/L (22-30); Chloride 101 mmol/L (98-107); Glucose 62 mg/dL (74-99); Potassium 3.5 mmol/L (3.5-5.1); Sodium 136 mmol/L (137-145); Total Bilirubin 0.6 mg/dL (0.2-1.3); Total Protein 4.3 g/dL (6.3-8.2)
[2019-02-04 09:32] LABS: Glucose,Whole Blood 93 mg/dL (75-99)
--- NOTE | 2019-02-04 09:58 | P.PN ---
Subjective Progress Note Date: 02/04/19 patient was covered by [facility] physicians on 02/02/2019 This is a 63-year-old female patient who presented with abdominal pain. Patient was recently admitted for acute tracheobronchitis and COPD exacerbation. Patient reports that over the weekend she had increased nausea and diarrhea. Patient reports that throughout Sunday abdominal pain and diarrhea became increasingly worse and she presented to the ER for further evaluation. Patient was recently discharged home on Ceftin and prednisone taper. Patient also reports fever and chills. She has a known past medical history COPD with oxygen dependence, CAD, heart failure, GERD, hypertension, myocardial infarction, mitral valve prolapse, osteoporosis, paroxysmal atrial fibrillation, IBS and C. diff in 2015. Stool for C. diff positive. CT of abdomen and pelvis completed showing mild ascites fluid that is change compared to old exam. Mild wall thickening of the sigmoid colon consistent with mild colitis. This appears improved compared to old computed tomography scan there is increased wall thickening of the cecum consistent with colitis this change compared to old exam. Chest x-ray completed showing no active cardiopulmonary disease. No change. EKG completed showing sinus rhythm with occasional premature ventricular complexes. On 02/03/2019 patient is alert and oriented 3. At this time patient is still complaining of abdominal pain. Patient reports she had 4 loose stools tonight. Patient denies chest pain or shortness of breath. Patient denies nausea but no emesis. She denies any urinary burning or frequency. On 02/04/2019 patient is alert and oriented 3. Patient does state improvement with abdominal pain and nausea. Patient has been able to tolerate minimum diet. Infectious disease is following. Patient remains on oral vancomycin. Patient suddenly elevated 100.3. At this time patient denies any chest pain or shortness breath. Patient still having abdominal pain but is improved. Patient denies any nausea vomiting or diarrhea. Patient denies any urinary burning or frequency Objective - Vital Signs Vital signs: Vital Signs Temp 99.3 F 02/04/19 07:34 Pulse 80 02/04/19 08:16 Resp 16 02/04/19 07:34 BP 109/61 02/04/19 07:34 Pulse Ox 97 02/04/19 07:34 Intake & Output 02/03/19 02/04/19 02/04/19 18:59 06:59 18:59 Intake Total 1465 Balance 1465 Weight 61.2 kg Intake: Intake, IV Titration 850 Amount Sodium Chloride 0.9% 1, 850 000 ml @ 100 mls/hr IV . Q10H [facility] Rx#:[id number] Oral 615 Other: # Voids 1 1 # Bowel Movements 1 - Exam Head normocephalic Neck supple Lungs clear to auscultation bilaterally no wheezing or crackles Heart regular rate and rhythm S1-S2, no rub or gallop Abdomen is soft tender to palpation Extremities no edema Neuro alert and orientated to 3 - Labs CBC & Chem 7: 02/04/19 07:10 02/04/19 07:10 Labs: Abnormal Lab Results - Last 24 Hours (Table) 02/03/19 02/04/19 02/04/19 Range/Units 16:59 07:09 07:10 WBC 14.3 H (3.8-10.6) k/uL RBC 3.68 L (3.80-5.40) m/uL Hgb 11.3 L (11.4-16.0) gm/dL Neutrophils # 12.2 H (1.3-7.7) k/uL Sodium (137-145) mmol/L Creatinine (0.52-1.04) mg/dL Glucose (74-99) mg/dL POC Glucose (mg/dL) 127 H 67 L (75-99) mg/dL Calcium (8.4-10.2) mg/dL Total Protein (6.3-8.2) g/dL Albumin (3.5-5.0) g/dL 02/04/19 Range/Units 07:10 WBC (3.8-10.6) k/uL RBC (3.80-5.40) m/uL Hgb (11.4-16.0) gm/dL Neutrophils # (1.3-7.7) k/uL Sodium 136 L (137-145) mmol/L Creatinine 0.35 L (0.52-1.04) mg/dL Glucose 62 L (74-99) mg/dL POC Glucose (mg/dL) (75-99) mg/dL Calcium 7.4 L (8.4-10.2) mg/dL Total Protein 4.3 L (6.3-8.2) g/dL Albumin 2.2 L (3.5-5.0) g/dL Microbiology - Last 24 Hours (Table) 02/02/19 16:36 Blood Culture - Preliminary Blood No Growth after 24 hours 02/03/19 01:40 Stool Culture - Preliminary Stool Assessment and Plan Assessment: 1. Abdominal pain related to C. diff colitis with leukocytosis. CT of abdomen and pelvis completed showing mild ascites fluid that his change compared to old exam. Mild wall thickening of the sigmoid colon consistent with mild colitis. This appears improved compared to old computed tomography scan. Increased wall thickening of the cecum, consistent with colitis that his change compared to old exam patient started on oral vancomycin. Stool cultures ordered. Patient positive for C. diff. infectious disease following 2. Chronic hypoxic respiratory failure maintained on home O2 3. Recent exacerbation of COPD and tracheobronchitis. Patient was discharged on antibiotics and prednisone taper. Patient was also underwent bronchoscopy. 4. History of paroxysmal atrial fibrillation. Patient refused anticoagulation during his hospitalization patient maintained on Cardizem. Patient reports history of bleeding with epitaxis and hematomas 5. History of congestive heart failure 6. History of coronary artery disease 7. History of chronic back pain 8. Hyperthyroidism. Patient maintained on Tapazole DVT prophylaxis heparin. GI prophylaxis Protonix I performed an examination of the patient and discussed their management with the Nurse Practitioner. I have reviewed the Nurse Practitioner's notes and agree with the documented findings and plan of care
[2019-02-04 12:01] LABS: Glucose,Whole Blood 96 mg/dL (75-99)
--- NOTE | 2019-02-04 14:24 | PN ---
PROGRESS NOTE DATE OF SERVICE: 02/04/2019 REASON FOR FOLLOWUP: C diff colitis. INTERVAL HISTORY: The patient is currently afebrile. The patient has been feeling slightly better. The patient's diarrhea frequency has decreased to about 1 episode today. The abdominal pain has slightly improved. No nausea, no vomiting. No chest pain, shortness of breath or cough. PHYSICAL EXAMINATION: Blood pressure is 115/59 with a pulse of 77, temperature 97.9. She is 97% on 2 L nasal cannula. General description is a middle aged female, lying in bed in no distress. RESPIRATORY SYSTEM: Unlabored breathing, clear to auscultation anteriorly. HEART: S1, S2. Regular rate and rhythm. ABDOMEN: Soft, less tenderness. EXTREMITIES: No edema of the feet. LABS: Hemoglobin is 11.1, white count 14.3, BUN of 11, creatinine 0.35. DIAGNOSTIC IMPRESSION AND PLAN: Patient admitted to the hospital with abdominal pain, intractable diarrhea, likely secondary to C difficile colitis. The patient at this time covered with p.o. vancomycin to continue while monitoring clinical course closely. Continue with supportive care. MMODL / IJN: [id number] /
[2019-02-04 17:05] LABS: Glucose,Whole Blood 131 mg/dL (75-99)
[2019-02-04 20:20] LABS: Glucose,Whole Blood 89 mg/dL (75-99)
[2019-02-04] MEDS: MELATONIN 5 MG TABLET PO SCH (20:38)
[2019-02-04] MEDS: DILTIAZEM CD 180 MG CAP.ER.24H PO SCH (20:38)
[2019-02-04] MEDS: MONTELUKAST 10 MG TAB PO SCH (20:38)
[2019-02-04] MEDS: PRAMIPEXOLE 0.5 MG TAB PO SCH (20:38)
[2019-02-04] MEDS ORDERED: HYDROmorphone 0.5 MG/0.5 ML SYRINGE ONE (23:45)
[2019-02-05] MEDS ORDERED: HEPARIN SODIUM,PORCINE 5,000 UNIT/ML 1 ML VIAL ONE
[2019-02-05] MEDS ORDERED: HYDROcodone/APAP 10-325MG 1 EACH TAB ONE
[2019-02-05] MEDS ORDERED: IPRATROPIUM-ALBUTEROL 3 ML NEB ONE
[2019-02-05] MEDS ORDERED: HYDROmorphone 0.5 MG/0.5 ML SYRINGE ONE
[2019-02-05] MEDS: HEPARIN SODIUM,PORCINE 5,000 UNIT/ML 1 ML VIAL SQ SCH ×3 (04:57→18:53)
[2019-02-05] MEDS: SODIUM CHLORIDE 0.9% 1,000 ML IV SCH ×2 (04:58→10:53)
[2019-02-05] MEDS: VANCOMYCIN ORAL SOLUTION 250 MG/5 ML BOTTLE PO SCH ×4 (04:58→18:54)
[2019-02-05] MEDS: HYDROmorphone 0.5 MG/0.5 ML SYRINGE IVP PRN ×4 (06:13→22:57)
[2019-02-05 07:02] LABS: Glucose,Whole Blood 77 mg/dL (75-99)
[2019-02-05 07:56] LABS: Basophils % (A) 0 %; Eosinophils # (A) 0.2 k/uL (0-0.7); Eosinophils % (A) 2 %; HCT 35.7 % (34.0-46.0); HGB 11.3 gm/dL (11.4-16.0); Hypochromasia Slight; Lymphocytes % (A) 10 %; MCH 30.4 pg (25.0-35.0); MCHC 31.6 g/dL (31.0-37.0); MCV 96.2 fL (80.0-100.0); Mean Platelet Volume 7.2; Monocytes # (A) 0.4 k/uL (0-1.0); Monocytes % (A) 4 %; Neutrophils # (A) 7.8 k/uL (1.3-7.7); Neutrophils % (A) 81 %; Platelet Count 167 k/uL (150-450); RBC 3.71 m/uL (3.80-5.40); RDW 14.3 % (11.5-15.5); WBC 9.5 k/uL (3.8-10.6)
[2019-02-05] MEDS: IPRATROPIUM-ALBUTEROL 3 ML NEB INHALATION SCH ×6 (08:12→23:02)
[2019-02-05 08:15] LABS: ALT 33 U/L (9-52); AST 21 U/L (14-36); African American GFR (CKD) >90 (>60 ml/min/1.73 sqM); Albumin 2.3 g/dL (3.5-5.0); Alkaline Phosphatase 55 U/L (38-126); Anion Gap 4 mmol/L; Blood Urea Nitrogen 7 mg/dL (7-17); Calcium 7.5 mg/dL (8.4-10.2); Carbon Dioxide 31 mmol/L (22-30); Chloride 100 mmol/L (98-107); Glucose 78 mg/dL (74-99); Potassium 3.3 mmol/L (3.5-5.1); Sodium 135 mmol/L (137-145); Total Bilirubin 0.6 mg/dL (0.2-1.3); Total Protein 4.5 g/dL (6.3-8.2)
[2019-02-05] MEDS: FLUTICASONE 110 MCG INHALER INHALATION SCH ×2 (08:15→19:19)
[2019-02-05] MEDS: HYDROcodone/APAP 10-325MG 1 EACH TAB PO PRN ×3 (08:23→21:26)
[2019-02-05] MEDS: INSULIN ASPART (NovoLOG) 100 UNIT/ML VIAL SQ SCH ×4 (08:25→21:19)
[2019-02-05] MEDS ORDERED: Potassium Replacement Protocol 1 EACH MISC MISCELLANE PRN (08:43)
--- NOTE | 2019-02-05 10:04 | P.PN ---
Subjective Progress Note Date: 02/05/19 patient was covered by [facility] physicians on 02/02/2019 This is a 63-year-old female patient who presented with abdominal pain. Patient was recently admitted for acute tracheobronchitis and COPD exacerbation. Patient reports that over the weekend she had increased nausea and diarrhea. Patient reports that throughout Sunday abdominal pain and diarrhea became increasingly worse and she presented to the ER for further evaluation. Patient was recently discharged home on Ceftin and prednisone taper. Patient also reports fever and chills. She has a known past medical history COPD with oxygen dependence, CAD, heart failure, GERD, hypertension, myocardial infarction, mitral valve prolapse, osteoporosis, paroxysmal atrial fibrillation, IBS and C. diff in 2015. Stool for C. diff positive. CT of abdomen and pelvis completed showing mild ascites fluid that is change compared to old exam. Mild wall thickening of the sigmoid colon consistent with mild colitis. This appears improved compared to old computed tomography scan there is increased wall thickening of the cecum consistent with colitis this change compared to old exam. Chest x-ray completed showing no active cardiopulmonary disease. No change. EKG completed showing sinus rhythm with occasional premature ventricular complexes. On 02/03/2019 patient is alert and oriented 3. At this time patient is still complaining of abdominal pain. Patient reports she had 4 loose stools tonight. Patient denies chest pain or shortness of breath. Patient denies nausea but no emesis. She denies any urinary burning or frequency. On 02/04/2019 patient is alert and oriented 3. Patient does state improvement with abdominal pain and nausea. Patient has been able to tolerate minimum diet. Infectious disease is following. Patient remains on oral vancomycin. Patient suddenly elevated 100.3. At this time patient denies any chest pain or shortness breath. Patient still having abdominal pain but is improved. Patient denies any nausea vomiting or diarrhea. Patient denies any urinary burning or frequency On 02/05/2018 patient is alert and oriented 3. Patient reports that after she ate yesterday she did have increased abdominal pain with diarrhea. At this time abdominal pain has slightly improved. Patient states she had possibly 3 loose stools throughout night. Patient remains on oral vancomycin and ID is following. Patient did have low-grade temp 99.7. Patient denies any chest pain or shortness of breath. Patient denies any emesis. Patient does have occasional nausea. Patient denies any urinary burning or frequency. Objective - Vital Signs Vital signs: Vital Signs Temp 99.7 F H 02/05/19 07:00 Pulse 84 02/05/19 08:26 Resp 18 02/05/19 07:00 BP 122/71 02/05/19 07:00 Pulse Ox 96 02/05/19 07:00 Intake & Output 02/04/19 02/05/19 02/05/19 18:59 06:59 18:59 Intake Total 1100 800 Balance 1100 800 Weight 63.1 kg Intake: Intake, IV Titration 800 800 Amount Sodium Chloride 0.9% 1, 800 800 000 ml @ 100 mls/hr IV . Q10H ROXY Rx#:[id number] Oral 300 Other: # Voids 2 3 # Bowel Movements 1 1 - Exam Head normocephalic Neck supple Lungs clear to auscultation bilaterally no wheezing or crackles Heart regular rate and rhythm S1-S2, no rub or gallop Abdomen is soft tender to palpation Extremities no edema Neuro alert and orientated to 3 - Labs CBC & Chem 7: 02/05/19 07:31 02/05/19 07:31 Labs: Abnormal Lab Results - Last 24 Hours (Table) 02/04/19 02/05/19 02/05/19 Range/Units 16:50 07:31 07:31 RBC 3.71 L (3.80-5.40) m/uL Hgb 11.3 L (11.4-16.0) gm/dL Neutrophils # 7.8 H (1.3-7.7) k/uL Sodium 135 L (137-145) mmol/L Potassium 3.3 L (3.5-5.1) mmol/L Carbon Dioxide 31 H (22-30) mmol/L Creatinine 0.32 L (0.52-1.04) mg/dL POC Glucose (mg/dL) 131 H (75-99) mg/dL Calcium 7.5 L (8.4-10.2) mg/dL Total Protein 4.5 L (6.3-8.2) g/dL Albumin 2.3 L (3.5-5.0) g/dL Microbiology - Last 24 Hours (Table) 02/03/19 01:40 Stool Culture - Final Stool 02/02/19 16:36 Blood Culture - Preliminary Blood No Growth after 48 hours Assessment and Plan Assessment: 1. Abdominal pain related to C. diff colitis with leukocytosis. CT of abdomen and pelvis completed showing mild ascites fluid that his change compared to old exam. Mild wall thickening of the sigmoid colon consistent with mild colitis. This appears improved compared to old computed tomography scan. Increased wall thickening of the cecum, consistent with colitis that his change compared to old exam patient started on oral vancomycin. Stool cultures ordered. Patient positive for C. diff. infectious disease following 2. Chronic hypoxic respiratory failure maintained on home O2 3. Recent exacerbation of COPD and tracheobronchitis. Patient was discharged on antibiotics and prednisone taper. Patient was also underwent bronchoscopy. 4. History of paroxysmal atrial fibrillation. Patient refused anticoagulation during his hospitalization patient maintained on Cardizem. Patient reports history of bleeding with epitaxis and hematomas 5. History of congestive heart failure 6. History of coronary artery disease 7. History of chronic back pain 8. Hyperthyroidism. Patient maintained on Tapazole 9. Hypokalemia. Potassium 3.3. Orders replace per protocol. We'll continue to monitor DVT prophylaxis heparin. GI prophylaxis Protonix I performed an examination of the patient and discussed their management with the Nurse Practitioner. I have reviewed the Nurse Practitioner's notes and agree with the documented findings and plan of care
[2019-02-05] MEDS: PANTOPRAZOLE 40 MG/10 ML VIAL IV SCH (10:54)
[2019-02-05] MEDS: METHIMAZOLE 5 MG TAB PO SCH (10:54)
[2019-02-05] MEDS: POTASSIUM CHLORIDE ER 20 MEQ TAB.ER PO SCH ×2 (10:55→13:01)
[2019-02-05] MEDS: predniSONE 20 MG TAB PO SCH (10:55)
[2019-02-05] MEDS: ALPRAZolam 0.25 MG TAB PO PRN (11:01)
[2019-02-05] MEDS: ACETAMINOPHEN TAB 325 MG TAB PO PRN (11:02)
[2019-02-05 12:02] LABS: Glucose,Whole Blood 76 mg/dL (75-99)
[2019-02-05] MEDS: IBUPROFEN 400 MG TAB PO PRN (14:28)
[2019-02-05 17:10] LABS: Glucose,Whole Blood 119 mg/dL (75-99)
--- NOTE | 2019-02-05 18:35 | PN ---
PROGRESS NOTE DATE OF SERVICE: 02/05/2019 REASON FOR FOLLOWUP: C difficile colitis. INTERVAL HISTORY: The patient is afebrile. The patient has been breathing comfortably. Still complaining of abdominal pain. Did have about 4 to 5 stools. At times they are loose and at times they are forming up. No nausea and no vomiting, though. PHYSICAL EXAMINATION: Blood pressure is 112/69 with a pulse of 76, temperature 98.8. She is 94% on 2 L nasal cannula. General description is middle-aged female lying in bed in no distress. RESPIRATORY SYSTEM: Unlabored breathing. Clear to auscultation anteriorly. HEART: S1, S2. Regular rate and rhythm. ABDOMEN: Soft. Mildly distended. No guarding or rigidity. EXTREMITIES: No edema of the feet. LABS: Hemoglobin is 11.3. White count normalized to 9.5 from a high of 25.6. BUN of 7, creatinine 0.32. DIAGNOSTIC IMPRESSION AND PLAN: Patient with Clostridium difficile colitis. The patient's white count has improved. She is also having loose stool. We will add Questran for symptomatic relief. Patient has been advised to increase her yogurt intake. Continue with supportive care. MMODL / IJN: [id number] /
[2019-02-05] MEDS ORDERED: POTASSIUM CHLORIDE ER 20 MEQ TAB.ER PO STA (19:08)
[2019-02-05 20:19] LABS: Glucose,Whole Blood 140 mg/dL (75-99)
[2019-02-05] MEDS: DILTIAZEM CD 180 MG CAP.ER.24H PO SCH (21:19)
[2019-02-05] MEDS: CHOLESTYRAMINE (WITH SUGAR) 4 GM PACKET PO SCH (21:19)
[2019-02-05] MEDS: MONTELUKAST 10 MG TAB PO SCH (21:20)
[2019-02-05] MEDS: PRAMIPEXOLE 0.5 MG TAB PO SCH (21:20)
[2019-02-05] MEDS: MELATONIN 5 MG TABLET PO SCH (21:20)
[2019-02-06] MEDS: HEPARIN SODIUM,PORCINE 5,000 UNIT/ML 1 ML VIAL SQ SCH ×4 (00:26→21:43)
[2019-02-06] MEDS: VANCOMYCIN ORAL SOLUTION 250 MG/5 ML BOTTLE PO SCH ×4 (00:28→18:08)
[2019-02-06] MEDS: SODIUM CHLORIDE 0.9% 1,000 ML IV SCH ×2 (02:06→10:12)
[2019-02-06] MEDS: HYDROcodone/APAP 10-325MG 1 EACH TAB PO PRN ×4 (03:05→21:35)
[2019-02-06] MEDS: IPRATROPIUM-ALBUTEROL 3 ML NEB INHALATION SCH ×5 (03:23→20:08)
[2019-02-06] MEDS: ALPRAZolam 0.25 MG TAB PO PRN ×2 (03:34→21:38)
[2019-02-06] MEDS: HYDROmorphone 0.5 MG/0.5 ML SYRINGE IVP PRN ×6 (03:37→22:46)
[2019-02-06] MEDS: FLUTICASONE 110 MCG INHALER INHALATION SCH ×2 (07:02→20:08)
[2019-02-06 07:10] LABS: Glucose,Whole Blood 82 mg/dL (75-99)
[2019-02-06] MEDS: INSULIN ASPART (NovoLOG) 100 UNIT/ML VIAL SQ SCH ×4 (07:47→21:07)
[2019-02-06] MEDS: predniSONE 20 MG TAB PO SCH (08:43)
[2019-02-06] MEDS: METHIMAZOLE 5 MG TAB PO SCH (08:43)
[2019-02-06] MEDS: PANTOPRAZOLE 40 MG/10 ML VIAL IV SCH (08:43)
[2019-02-06 09:08] LABS: Basophils % (A) 0 %; Eosinophils # (A) 0.2 k/uL (0-0.7); Eosinophils % (A) 2 %; HCT 38.6 % (34.0-46.0); Hypochromasia Moderate; Lymphocytes % (A) 14 %; MCH 29.5 pg (25.0-35.0); MCV 95.2 fL (80.0-100.0); Mean Platelet Volume 8.2; Monocytes # (A) 0.5 k/uL (0-1.0); Monocytes % (A) 7 %; Neutrophils # (A) 5.5 k/uL (1.3-7.7); Neutrophils % (A) 75 %; Platelet Count 196 k/uL (150-450); RBC 4.05 m/uL (3.80-5.40); WBC 7.3 k/uL (3.8-10.6)
[2019-02-06] MEDS: ONDANSETRON 4 MG/2 ML VIAL IVP PRN ×2 (09:18→21:46)
[2019-02-06 09:21] LABS: ALT 41 U/L (9-52); AST 22 U/L (14-36); African American GFR (CKD) >90 (>60 ml/min/1.73 sqM); Albumin 2.5 g/dL (3.5-5.0); Alkaline Phosphatase 63 U/L (38-126); Anion Gap 3 mmol/L; Blood Urea Nitrogen 5 mg/dL (7-17); Calcium 8.1 mg/dL (8.4-10.2); Carbon Dioxide 34 mmol/L (22-30); Chloride 100 mmol/L (98-107); Glucose 70 mg/dL (74-99); Sodium 137 mmol/L (137-145); Total Bilirubin 0.4 mg/dL (0.2-1.3)
[2019-02-06] MEDS: CHOLESTYRAMINE (WITH SUGAR) 4 GM PACKET PO SCH ×2 (10:18→21:36)
[2019-02-06 11:59] LABS: Glucose,Whole Blood 85 mg/dL (75-99)
--- NOTE | 2019-02-06 13:49 | P.PN ---
Subjective Progress Note Date: 02/06/19 patient was covered by [facility] physicians on 02/02/2019 This is a 63-year-old female patient who presented with abdominal pain. Patient was recently admitted for acute tracheobronchitis and COPD exacerbation. Patient reports that over the weekend she had increased nausea and diarrhea. Patient reports that throughout Sunday abdominal pain and diarrhea became increasingly worse and she presented to the ER for further evaluation. Patient was recently discharged home on Ceftin and prednisone taper. Patient also reports fever and chills. She has a known past medical history COPD with oxygen dependence, CAD, heart failure, GERD, hypertension, myocardial infarction, mitral valve prolapse, osteoporosis, paroxysmal atrial fibrillation, IBS and C. diff in 2015. Stool for C. diff positive. CT of abdomen and pelvis completed showing mild ascites fluid that is change compared to old exam. Mild wall thickening of the sigmoid colon consistent with mild colitis. This appears improved compared to old computed tomography scan there is increased wall thickening of the cecum consistent with colitis this change compared to old exam. Chest x-ray completed showing no active cardiopulmonary disease. No change. EKG completed showing sinus rhythm with occasional premature ventricular complexes. On 02/03/2019 patient is alert and oriented 3. At this time patient is still complaining of abdominal pain. Patient reports she had 4 loose stools tonight. Patient denies chest pain or shortness of breath. Patient denies nausea but no emesis. She denies any urinary burning or frequency. On 02/04/2019 patient is alert and oriented 3. Patient does state improvement with abdominal pain and nausea. Patient has been able to tolerate minimum diet. Infectious disease is following. Patient remains on oral vancomycin. Patient suddenly elevated 100.3. At this time patient denies any chest pain or shortness breath. Patient still having abdominal pain but is improved. Patient denies any nausea vomiting or diarrhea. Patient denies any urinary burning or frequency On 02/05/2019 patient is alert and oriented 3. Patient reports that after she ate yesterday she did have increased abdominal pain with diarrhea. At this time abdominal pain has slightly improved. Patient states she had possibly 3 loose stools throughout night. Patient remains on oral vancomycin and ID is following. Patient did have low-grade temp 99.7. Patient denies any chest pain or shortness of breath. Patient denies any emesis. Patient does have occasional nausea. Patient denies any urinary burning or frequency. On 02/06/2019 patient is alert and oriented 3. Patient is having improved d iet. Patient reports she is still having occasional diarrhea after eating. Patient also complaining about increased weight gain and edema. Fluids will be DC'd due to increase oral intake. Will order chest x-ray. Patient denies any chest pain. Patient does complain of occasional shortness breath with exertion. Patient denies nausea or vomiting. Patient denies any urinary burning or frequency. Question added per infectious disease for symptom control. Objective - Vital Signs Vital signs: Vital Signs Temp 99.1 F 02/06/19 07:00 Pulse 85 02/06/19 11:23 Resp 16 02/06/19 07:00 BP 131/75 02/06/19 07:00 Pulse Ox 97 02/06/19 07:07 Intake & Output 02/05/19 02/06/19 02/06/19 18:59 06:59 18:59 Weight 66.8 kg Other: # Bowel Movements 1 - Exam Head normocephalic Neck supple Lungs clear to auscultation bilaterally no wheezing or crackles Heart regular rate and rhythm S1-S2, no rub or gallop Abdomen is soft tender to palpation Extremities no edema Neuro alert and orientated to 3 - Labs CBC & Chem 7: 02/06/19 08:28 02/06/19 08:28 Labs: Abnormal Lab Results - Last 24 Hours (Table) 02/05/19 02/05/19 02/06/19 Range/Units 16:55 20:08 08:28 Carbon Dioxide 34 H (22-30) mmol/L BUN 5 L (7-17) mg/dL Creatinine 0.33 L (0.52-1.04) mg/dL Glucose 70 L (74-99) mg/dL POC Glucose (mg/dL) 119 H 140 H (75-99) mg/dL Calcium 8.1 L (8.4-10.2) mg/dL Total Protein 5.0 L (6.3-8.2) g/dL Albumin 2.5 L (3.5-5.0) g/dL Microbiology - Last 24 Hours (Table) 02/03/19 01:40 Stool Culture - Final Stool 02/02/19 16:36 Blood Culture - Preliminary Blood No Growth after 72 hours Assessment and Plan Assessment: 1. Abdominal pain related to C. diff colitis with leukocytosis. CT of abdomen and pelvis completed showing mild ascites fluid that his change compared to old exam. Mild wall thickening of the sigmoid colon consistent with mild colitis. This appears improved compared to old computed tomography scan. Increased wall thickening of the cecum, consistent with colitis that his change compared to old exam patient started on oral vancomycin. Stool cultures ordered. Patient positive for C. diff. infectious disease following 2. Chronic hypoxic respiratory failure maintained on home O2 3. Recent exacerbation of COPD and tracheobronchitis. Patient was discharged on antibiotics and prednisone taper. Patient was also underwent bronchoscopy. 4. History of paroxysmal atrial fibrillation. Patient refused anticoagulation during his hospitalization patient maintained on Cardizem. Patient reports history of bleeding with epitaxis and hematomas 5. History of congestive heart failure 6. History of coronary artery disease 7. History of chronic back pain 8. Hyperthyroidism. Patient maintained on Tapazole 9. Hypokalemia. Potassium 3.3. Orders replace per protocol. We'll continue to monitor 10. Increase lower extremity edema. Fluids discontinued patient's oral intake has improved. Chest x-ray ordered. DVT prophylaxis heparin. GI prophylaxis Protonix I performed an examination of the patient and discussed their management with the Nurse Practitioner. I have reviewed the Nurse Practitioner's notes and agree with the documented findings and plan of care
[2019-02-06] MEDS ORDERED: FUROSEMIDE 10 MG/ML 4 ML VIAL IV STA (15:11)
[2019-02-06 17:04] LABS: Glucose,Whole Blood 124 mg/dL (75-99)
--- NOTE | 2019-02-06 17:05 | XR ---
EXAMINATION TYPE: XR chest 2V DATE OF EXAM: 02/06/2019 COMPARISON: 02/02/2019 HISTORY: Short of breath TECHNIQUE: Frontal and lateral views of the chest are obtained. FINDINGS: There is blunting of right costophrenic angle. Thoracic aorta is atheromatous. Heart size is normal. There are no hilar masses. There is no gross heart failure. There is thoracolumbar levosco liosis. IMPRESSION: There is increasing right pleural effusion compared to last exam. No overt heart failure . Osteopenia.
[2019-02-06] MEDS: CHERRY FLAVOR 60 ML BOTTLE PO PRN (18:08)
[2019-02-06 20:19] LABS: Glucose,Whole Blood 85 mg/dL (75-99)
--- NOTE | 2019-02-06 20:20 | PN ---
PROGRESS NOTE DATE OF SERVICE: 02/06/2019 REASON FOR FOLLOWUP: C difficile colitis. INTERVAL HISTORY: The patient is currently afebrile. The patient is feeling slightly better. The patient's diarrhea has improved, and she did not have any bowel movement last night. No nausea. No vomiting. No chest pain. No shortness of breath or cough. PHYSICAL EXAMINATION: Blood pressure 112/65 with a pulse of 86, temperature 98.8. She is 92% 2 L nasal cannula. General description is middle-aged female up in the bed in no distress. RESPIRATORY SYSTEM: Unlabored breathing. Decreased intensity of breath sounds. No wheeze. HEART: S1, S2. Regular rate and rhythm. ABDOMEN: Soft. No tenderness. LABS: Hemoglobin is 12, white count 7.3 with a BUN of 5, creatinine 0.33. DIAGNOSTIC IMPRESSION AND PLAN: Patient with acute Clostridium difficile colitis. The patient has shown clinical improvement. To continue with oral vancomycin along with Questran to finish a course of therapy. The patient has been advised to increase her yogurt intake. Continue supportive care. MMYAREDL / KONGN: [id number] /
[2019-02-06] MEDS: MONTELUKAST 10 MG TAB PO SCH (21:36)
[2019-02-06] MEDS: PRAMIPEXOLE 0.5 MG TAB PO SCH (21:36)
[2019-02-06] MEDS: DILTIAZEM CD 180 MG CAP.ER.24H PO SCH (21:36)
[2019-02-06] MEDS: MELATONIN 5 MG TABLET PO SCH (21:37)
[2019-02-07] MEDS: CHERRY FLAVOR 60 ML BOTTLE PO PRN ×2 (00:44→05:07)
[2019-02-07] MEDS: VANCOMYCIN ORAL SOLUTION 250 MG/5 ML BOTTLE PO SCH ×4 (00:45→17:31)
[2019-02-07] MEDS: HYDROmorphone 0.5 MG/0.5 ML SYRINGE IVP PRN ×6 (02:08→20:35)
[2019-02-07] MEDS: IPRATROPIUM-ALBUTEROL 3 ML NEB INHALATION SCH ×7 (03:31→23:52)
[2019-02-07] MEDS: HYDROcodone/APAP 10-325MG 1 EACH TAB PO PRN ×4 (05:06→21:58)
[2019-02-07 07:21] LABS: Glucose,Whole Blood 74 mg/dL (75-99)
[2019-02-07 08:17] LABS: Basophils % (A) 0 %; Eosinophils # (A) 0.2 k/uL (0-0.7); Eosinophils % (A) 3 %; HCT 34.4 % (34.0-46.0); HGB 10.8 gm/dL (11.4-16.0); Hypochromasia Slight; Lymphocytes # (A) 1.2 k/uL (1.0-4.8); Lymphocytes % (A) 17 %; MCH 29.8 pg (25.0-35.0); MCHC 31.5 g/dL (31.0-37.0); MCV 94.7 fL (80.0-100.0); Mean Platelet Volume 8.2; Monocytes # (A) 0.5 k/uL (0-1.0); Monocytes % (A) 6 %; Neutrophils # (A) 4.9 k/uL (1.3-7.7); Neutrophils % (A) 70 %; Platelet Count 234 k/uL (150-450); RBC 3.63 m/uL (3.80-5.40); RDW 15.1 % (11.5-15.5)
[2019-02-07] MEDS: INSULIN ASPART (NovoLOG) 100 UNIT/ML VIAL SQ SCH ×4 (08:33→21:01)
[2019-02-07 08:35] LABS: ALT 33 U/L (9-52); AST 19 U/L (14-36); African American GFR (CKD) >90 (>60 ml/min/1.73 sqM); Albumin 2.5 g/dL (3.5-5.0); Alkaline Phosphatase 56 U/L (38-126); Anion Gap 3 mmol/L; Blood Urea Nitrogen 4 mg/dL (7-17); Carbon Dioxide 39 mmol/L (22-30); Chloride 94 mmol/L (98-107); Glucose 65 mg/dL (74-99); Potassium 3.6 mmol/L (3.5-5.1); Sodium 136 mmol/L (137-145); Total Bilirubin 0.3 mg/dL (0.2-1.3); Total Protein 4.8 g/dL (6.3-8.2)
[2019-02-07] MEDS: FLUTICASONE 110 MCG INHALER INHALATION SCH ×2 (08:38→19:24)
[2019-02-07] MEDS: PANTOPRAZOLE 40 MG/10 ML VIAL IV SCH (09:40)
[2019-02-07] MEDS: predniSONE 20 MG TAB PO SCH (09:40)
[2019-02-07] MEDS: METHIMAZOLE 5 MG TAB PO SCH (10:17)
[2019-02-07] MEDS: HEPARIN SODIUM,PORCINE 5,000 UNIT/ML 1 ML VIAL SQ SCH ×3 (10:17→23:58)
[2019-02-07] MEDS: CHOLESTYRAMINE (WITH SUGAR) 4 GM PACKET PO SCH ×2 (11:24→21:52)
[2019-02-07] MEDS: ONDANSETRON 4 MG/2 ML VIAL IVP PRN ×2 (11:26→22:16)
--- NOTE | 2019-02-07 11:26 | P.PN ---
Subjective Progress Note Date: 02/07/19 patient was covered by [facility] physicians on 02/02/2019 This is a 63-year-old female patient who presented with abdominal pain. Patient was recently admitted for acute tracheobronchitis and COPD exacerbation. Patient reports that over the weekend she had increased nausea and diarrhea. Patient reports that throughout Sunday abdominal pain and diarrhea became increasingly worse and she presented to the ER for further evaluation. Patient was recently discharged home on Ceftin and prednisone taper. Patient also reports fever and chills. She has a known past medical history COPD with oxygen dependence, CAD, heart failure, GERD, hypertension, myocardial infarction, mitral valve prolapse, osteoporosis, paroxysmal atrial fibrillation, IBS and C. diff in 2015. Stool for C. diff positive. CT of abdomen and pelvis completed showing mild ascites fluid that is change compared to old exam. Mild wall thickening of the sigmoid colon consistent with mild colitis. This appears improved compared to old computed tomography scan there is increased wall thickening of the cecum consistent with colitis this change compared to old exam. Chest x-ray completed showing no active cardiopulmonary disease. No change. EKG completed showing sinus rhythm with occasional premature ventricular complexes. On 02/03/2019 patient is alert and oriented 3. At this time patient is still complaining of abdominal pain. Patient reports she had 4 loose stools tonight. Patient denies chest pain or shortness of breath. Patient denies nausea but no emesis. She denies any urinary burning or frequency. On 02/04/2019 patient is alert and oriented 3. Patient does state improvement with abdominal pain and nausea. Patient has been able to tolerate minimum diet. Infectious disease is following. Patient remains on oral vancomycin. Patient suddenly elevated 100.3. At this time patient denies any chest pain or shortness breath. Patient still having abdominal pain but is improved. Patient denies any nausea vomiting or diarrhea. Patient denies any urinary burning or frequency On 02/05/2019 patient is alert and oriented 3. Patient reports that after she ate yesterday she did have increased abdominal pain with diarrhea. At this time abdominal pain has slightly improved. Patient states she had possibly 3 loose stools throughout night. Patient remains on oral vancomycin and ID is following. Patient did have low-grade temp 99.7. Patient denies any chest pain or shortness of breath. Patient denies any emesis. Patient does have occasional nausea. Patient denies any urinary burning or frequency. On 02/06/2019 patient is alert and oriented 3. Patient is having improved d iet. Patient reports she is still having occasional diarrhea after eating. Patient also complaining about increased weight gain and edema. Fluids will be DC'd due to increase oral intake. Will order chest x-ray. Patient denies any chest pain. Patient does complain of occasional shortness breath with exertion. Patient denies nausea or vomiting. Patient denies any urinary burning or frequency. Question added per infectious disease for symptom control. On 02/07/2019 patient is alert and oriented 3. Patient received 1 dose of IV Lasix yesterday. Patient still complaining of increased edema. Patient also his reports that he still having abdominal pain after eating. Patient has been afebrile now for 48 hours. Patient remains on oral Flagyl and Questran. Infectious disease is following. At this time patient is complaining of shortness breath with activity. Patient denies nausea or vomiting. Patient is complaining of still occasional diarrhea. Patient denies any urinary burning or frequency. Objective - Vital Signs Vital signs: Vital Signs Temp 98.3 F 02/07/19 07:00 Pulse 88 02/07/19 08:50 Resp 16 02/07/19 07:00 BP 105/60 02/07/19 07:00 Pulse Ox 94 L 02/07/19 07:00 Intake & Output 02/06/19 02/07/19 02/07/19 18:59 06:59 18:59 Intake Total 500 820 200 Output Total 200 Balance 500 620 200 Weight 65 kg Intake: IV 500 Sodium Chloride 0.9% 1, 500 000 ml @ 100 mls/hr IV . Q10H ROXY Rx#:[id number] Oral 820 200 Output: Urine 200 Other: # Voids 2 2 - Exam Head normocephalic Neck supple Lungs clear to auscultation bilaterally no wheezing or crackles Heart regular rate and rhythm S1-S2, no rub or gallop Abdomen is soft tender to palpation Extremities +1 lower extremity edema Neuro alert and orientated to 3 - Labs CBC & Chem 7: 02/07/19 07:15 02/07/19 07:15 Labs: Abnormal Lab Results - Last 24 Hours (Table) 02/06/19 02/07/19 02/07/19 Range/Units 17:00 07:09 07:15 RBC 3.63 L (3.80-5.40) m/uL Hgb 10.8 L (11.4-16.0) gm/dL Sodium (137-145) mmol/L Chloride (98-107) mmol/L Carbon Dioxide (22-30) mmol/L BUN (7-17) mg/dL Creatinine (0.52-1.04) mg/dL Glucose (74-99) mg/dL POC Glucose (mg/dL) 124 H 74 L (75-99) mg/dL Calcium (8.4-10.2) mg/dL Total Protein (6.3-8.2) g/dL Albumin (3.5-5.0) g/dL 02/07/19 Range/Units 07:15 RBC (3.80-5.40) m/uL Hgb (11.4-16.0) gm/dL Sodium 136 L (137-145) mmol/L Chloride 94 L (98-107) mmol/L Carbon Dioxide 39 H (22-30) mmol/L BUN 4 L (7-17) mg/dL Creatinine 0.33 L (0.52-1.04) mg/dL Glucose 65 L (74-99) mg/dL POC Glucose (mg/dL) (75-99) mg/dL Calcium 8.0 L (8.4-10.2) mg/dL Total Protein 4.8 L (6.3-8.2) g/dL Albumin 2.5 L (3.5-5.0) g/dL Microbiology - Last 24 Hours (Table) 02/03/19 01:40 Stool Culture - Final Stool 02/02/19 16:36 Blood Culture - Preliminary Blood No Growth after 96 hours Assessment and Plan Assessment: 1. Abdominal pain related to C. diff colitis with leukocytosis. CT of abdomen and pelvis completed showing mild ascites fluid that his change compared to old exam. Mild wall thickening of the sigmoid colon consistent with mild colitis. This appears improved compared to old computed tomography scan. Increased wall thickening of the cecum, consistent with colitis that his change compared to old exam patient started on oral vancomycin. Stool cultures negative. Patient positive for C. diff. infectious disease following 2. Chronic hypoxic respiratory failure maintained on home O2 3. Recent exacerbation of COPD and tracheobronchitis. Patient was discharged on antibiotics and prednisone taper. Patient was also underwent bronchoscopy. 4. History of paroxysmal atrial fibrillation. Patient refused anticoagulation during his hospitalization patient maintained on Cardizem. Patient reports history of bleeding with epitaxis and hematomas 5. History of congestive heart failure 6. History of coronary artery disease 7. History of chronic back pain 8. Hyperthyroidism. Patient maintained on Tapazole 9. Hypokalemia. Potassium 3.3. Orders replace per protocol. We'll continue to monitor 10. Increase lower extremity edema. Fluids discontinued patient's oral intake has improved. Chest x-ray completed showing increasing right pleural effusion compared to last exam. No overt heart failure. Osteopenia Patient received 1 dose of IV Lasix 40 mg. DVT prophylaxis heparin. GI prophylaxis Protonix I performed an examination of the patient and discussed their management with the Nurse Practitioner. I have reviewed the Nurse Practitioner's notes and a gree with the documented findings and plan of care
[2019-02-07 11:58] LABS: Glucose,Whole Blood 87 mg/dL (75-99)
[2019-02-07] MEDS ORDERED: POTASSIUM CHLORIDE ER 20 MEQ TAB.ER PO STA (13:26)
--- NOTE | 2019-02-07 13:43 | PN ---
PROGRESS NOTE DATE OF SERVICE: 02/07/2019 REASON FOR FOLLOWUP: Clostridium difficile colitis. INTERVAL HISTORY: The patient is currently afebrile. The patient has been breathing comfortably. Denies having any chest pain or cough. The patient's diarrhea has slowed down. No nausea, no vomiting. PHYSICAL EXAMINATION: On examination, blood pressure 105/60 with a pulse of 79, temperature 98.3. She is 94% on 2 L of nasal cannula. General description is a middle-aged female up in the bed in no distress. RESPIRATORY SYSTEM: Unlabored breathing with decreased breath sounds at the bases. HEART: S1, S2. Regular rate and rhythm. ABDOMEN: Soft, no tenderness. LABS: Hemoglobin is 10.8, white count 7.0, BUN of 4, creatinine 0.33. DIAGNOSTIC IMPRESSION AND PLAN: Patient with Clostridium difficile colitis, slow clinical improvement. To continue with vancomycin to finish at least a course of therapy. Questran for symptomatic relief. Advised to increase her yogurt intake. Continue supportive care. MMODL / IJN: [id number] /
[2019-02-07] MEDS ORDERED: FUROSEMIDE 10 MG/ML 4 ML VIAL IV STA (14:12)
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
[2019-02-07 16:36] LABS: Glucose,Whole Blood 121 mg/dL (75-99)
[2019-02-07] MEDS: ALPRAZolam 0.25 MG TAB PO PRN (17:31)
[2019-02-07 20:53] LABS: Glucose,Whole Blood 110 mg/dL (75-99)
[2019-02-07] MEDS: DILTIAZEM CD 180 MG CAP.ER.24H PO SCH (21:52)
[2019-02-07] MEDS: MELATONIN 5 MG TABLET PO SCH (21:52)
[2019-02-07] MEDS: MONTELUKAST 10 MG TAB PO SCH (21:52)
[2019-02-07] MEDS: PRAMIPEXOLE 0.5 MG TAB PO SCH (22:11)
--- NOTE | 2019-02-07 22:57 | US ---
EXAMINATION TYPE: US chest DATE OF EXAM: 02/07/2019 COMPARISON: X ray CLINICAL HISTORY: pleural effusion. Rt pleural effusion. TECHNIQUE: Targeted ultrasound of the posterior lower bilateral EXAM MEASUREMENTS: Right Pleural Effusion pocket size: 4.2 cm A/P Right skin surface to fluid distance: 2.8 cm A/P Left chest: no fluid seen Right side was marked for possible thoracentesis outside the dept. Pulmonologists are able to review the images in the patient?s EMR. IMPRESSIONS: As above.
[2019-02-08] MEDS: HYDROmorphone 0.5 MG/0.5 ML SYRINGE IVP PRN ×7 (00:01→20:40)
[2019-02-08] MEDS: VANCOMYCIN ORAL SOLUTION 250 MG/5 ML BOTTLE PO SCH ×5 (00:03→23:07)
[2019-02-08] MEDS: CHERRY FLAVOR 60 ML BOTTLE PO PRN ×4 (00:03→17:59)
[2019-02-08] MEDS: IPRATROPIUM-ALBUTEROL 3 ML NEB INHALATION SCH ×5 (04:09→20:51)
[2019-02-08] MEDS: HYDROcodone/APAP 10-325MG 1 EACH TAB PO PRN ×4 (04:25→23:04)
[2019-02-08] MEDS: ONDANSETRON 4 MG/2 ML VIAL IVP PRN ×2 (06:18→20:40)
[2019-02-08 07:11] LABS: Glucose,Whole Blood 86 mg/dL (75-99)
[2019-02-08] MEDS: INSULIN ASPART (NovoLOG) 100 UNIT/ML VIAL SQ SCH ×4 (07:35→21:43)
[2019-02-08] MEDS: PANTOPRAZOLE 40 MG/10 ML VIAL IV SCH (07:45)
[2019-02-08] MEDS: FLUTICASONE 110 MCG INHALER INHALATION SCH ×2 (07:46→20:51)
[2019-02-08] MEDS: HEPARIN SODIUM,PORCINE 5,000 UNIT/ML 1 ML VIAL SQ SCH (07:46)
[2019-02-08] MEDS: METHIMAZOLE 5 MG TAB PO SCH (07:47)
[2019-02-08] MEDS: predniSONE 20 MG TAB PO SCH (07:47)
[2019-02-08] MEDS: FUROSEMIDE 40 MG TAB PO SCH (07:47)
[2019-02-08] MEDS: CHOLESTYRAMINE (WITH SUGAR) 4 GM PACKET PO SCH ×2 (07:48→20:40)
[2019-02-08 08:38] LABS: Basophils % (A) 0 %; Eosinophils # (A) 0.2 k/uL (0-0.7); Eosinophils % (A) 3 %; HCT 34.8 % (34.0-46.0); HGB 10.6 gm/dL (11.4-16.0); Hypochromasia Slight; Lymphocytes # (A) 1.2 k/uL (1.0-4.8); Lymphocytes % (A) 16 %; MCH 29.3 pg (25.0-35.0); MCHC 30.5 g/dL (31.0-37.0); MCV 95.9 fL (80.0-100.0); Mean Platelet Volume 7.1; Monocytes # (A) 0.4 k/uL (0-1.0); Monocytes % (A) 6 %; Neutrophils # (A) 5.3 k/uL (1.3-7.7); Neutrophils % (A) 72 %; Platelet Count 290 k/uL (150-450); RBC 3.63 m/uL (3.80-5.40); RDW 14.4 % (11.5-15.5); WBC 7.3 k/uL (3.8-10.6)
[2019-02-08 08:56] LABS: ALT 29 U/L (9-52); AST 18 U/L (14-36); African American GFR (CKD) >90 (>60 ml/min/1.73 sqM); Albumin 2.5 g/dL (3.5-5.0); Alkaline Phosphatase 68 U/L (38-126); Anion Gap 4 mmol/L; Blood Urea Nitrogen 8 mg/dL (7-17); Calcium 8.1 mg/dL (8.4-10.2); Carbon Dioxide 39 mmol/L (22-30); Chloride 93 mmol/L (98-107); Glucose 78 mg/dL (74-99); Potassium 4.1 mmol/L (3.5-5.1); Sodium 136 mmol/L (137-145); Total Bilirubin 0.2 mg/dL (0.2-1.3); Total Protein 4.9 g/dL (6.3-8.2)
[2019-02-08 11:50] LABS: Glucose,Whole Blood 130 mg/dL (75-99)
[2019-02-08] MEDS: ALPRAZolam 0.25 MG TAB PO PRN ×2 (13:07→23:04)
--- NOTE | 2019-02-08 14:44 | P.PN ---
Subjective Progress Note Date: 02/08/19 This is a 63-year-old female patient who presented with abdominal pain. Patient was recently admitted for acute tracheobronchitis and COPD exacerbation. Patient reports that over the weekend she had increased nausea and diarrhea. Patient reports that throughout Sunday abdominal pain and diarrhea became increasingly worse and she presented to the ER for further evaluation. Patient was recently discharged home on Ceftin and prednisone taper. Patient also reports fever and chills. She has a known past medical history COPD with oxygen dependence, CAD, heart failure, GERD, hypertension, myocardial infarction, mitral valve prolapse, osteoporosis, paroxysmal atrial fibrillation, IBS and C. diff in 2015. Stool for C. diff positive. CT of abdomen and pelvis completed showing mild ascites fluid that is change compared to old exam. Mild wall thickening of the sigmoid colon consistent with mild colitis. This appears improved compared to old computed tomography scan there is increased wall t hickening of the cecum consistent with colitis this change compared to old exam. Chest x-ray completed showing no active cardiopulmonary disease. No change. EKG completed showing sinus rhythm with occasional premature ventricular complexes. On 02/03/2019 patient is alert and oriented 3. At this time patient is still complaining of abdominal pain. Patient reports she had 4 loose stools tonight. Patient denies chest pain or shortness of breath. Patient denies nausea but no emesis. She denies any urinary burning or frequency. On 02/04/2019 patient is alert and oriented 3. Patient does state improvement with abdominal pain and nausea. Patient has been able to tolerate minimum diet. Infectious disease is following. Patient remains on oral vancomycin. Patient suddenly elevated 100.3. At this time patient denies any chest pain or shortness breath. Patient still having abdominal pain but is improved. Patient denies any nausea vomiting or diarrhea. Patient denies any urinary burning or frequency On 02/05/2019 patient is alert and oriented 3. Patient reports that after she ate yesterday she did have increased abdominal pain with diarrhea. At this time abdominal pain has slightly improved. Patient states she had possibly 3 loose stools throughout night. Patient remains on oral vancomycin and ID is following. Patient did have low-grade temp 99.7. Patient denies any chest pain or shortness of breath. Patient denies any emesis. Patient does have occasiona l nausea. Patient denies any urinary burning or frequency. On 02/06/2019 patient is alert and oriented 3. Patient is having improved diet. Patient reports she is still having occasional diarrhea after eating. Patient also complaining about increased weight gain and edema. Fluids will be DC'd due to increase oral intake. Will order chest x-ray. Patient denies any chest pain. Patient does complain of occasional shortness breath with exertion. Patient denies nausea or vomiting. Patient denies any urinary burning or frequency. Question added per infectious disease for symptom control. On 02/07/2019 patient is alert and oriented 3. Patient received 1 dose of IV Lasix yesterday. Patient still complaining of increased edema. Patient also his reports that he still having abdominal pain after eating. Patient has been afebrile now for 48 hours. Patient remains on oral Flagyl and Questran. Infectious disease is following. At this time patient is complaining of shortness breath with activity. Patient denies nausea or vomiting. Patient is complaining of still occasional diarrhea. Patient denies any urinary burning or frequency. On 02/08/2019 patient was seen and examined on the medical floor she is alert and oriented 3 she is complaining of right lower extremity swelling, she is still complaining of diarrhea, and complaining of shortness of breath with activity, otherwise she denies any complaints there is no fever or chills no headache or dizziness no chest pain no cough no nausea or vomiting no abdominal pain and no urinary symptoms. Patient has been refusing to take subcu heparin. Objective - Vital Signs Vital signs: Vital Signs Temp 98.7 F 02/08/19 14:30 Pulse 80 02/08/19 14:30 Resp 16 02/08/19 14:30 BP 109/66 02/08/19 14:30 Pulse Ox 96 02/08/19 14:30 Intake & Output 02/07/19 02/08/19 02/08/19 18:59 06:59 18:59 Intake Total 200 1000 160 Balance 200 1000 160 Weight 65 kg 64.1 kg Intake: Oral 200 1000 160 Other: # Voids 6 2 3 # Bowel Movements 1 2 - Exam In general patient is alert and oriented 3 in no apparent distress Head normocephalic and atraumatic Neck supple no JVD no goiter Lungs clear to auscultation bilaterally no wheezing or crackles Heart regular rate and rhythm S1-S2, no rub or gallop Abdomen is soft tender to palpation Extremities +1 lower extremity edema right more than left Neuro no gross focal neurological deficit - Labs CBC & Chem 7: 02/08/19 07:48 02/08/19 07:48 Labs: Abnormal Lab Results - Last 24 Hours (Table) 02/07/19 02/07/19 02/08/19 Range/Units 16:25 20:42 07:48 RBC (3.80-5.40) m/uL Hgb (11.4-16.0) gm/dL MCHC (31.0-37.0) g/dL Sodium 136 L (137-145) mmol/L Chloride 93 L (98-107) mmol/L Carbon Dioxide 39 H (22-30) mmol/L Creatinine 0.32 L (0.52-1.04) mg/dL POC Glucose (mg/dL) 121 H 110 H (75-99) mg/dL Calcium 8.1 L (8.4-10.2) mg/dL Total Protein 4.9 L (6.3-8.2) g/dL Albumin 2.5 L (3.5-5.0) g/dL 02/08/19 02/08/19 Range/Units 07:48 11:38 RBC 3.63 L (3.80-5.40) m/uL Hgb 10.6 L (11.4-16.0) gm/dL MCHC 30.5 L (31.0-37.0) g/dL Sodium (137-145) mmol/L Chloride (98-107) mmol/L Carbon Dioxide (22-30) mmol/L Creatinine (0.52-1.04) mg/dL POC Glucose (mg/dL) 130 H (75-99) mg/dL Calcium (8.4-10.2) mg/dL Total Protein (6.3-8.2) g/dL Albumin (3.5-5.0) g/dL Microbiology - Last 24 Hours (Table) 02/02/19 16:36 Blood Culture - Preliminary Blood No Growth after 120 hours Assessment and Plan Plan: 1. Abdominal pain related to C. diff colitis with leukocytosis. CT of abdomen and pelvis completed showing mild ascites fluid that his change compared to old exam. Mild wall thickening of the sigmoid colon consistent with mild colitis. This appears improved compared to old computed tomography scan. Increased wall thickening of the cecum, consistent with colitis that his change compared to old exam patient started on oral vancomycin. Stool cultures negative. Patient positive for C. diff. infectious disease following 2. Chronic hypoxic respiratory failure maintained on home O2 3. Recent exacerbation of COPD and tracheobronchitis. Patient was discharged on antibiotics and prednisone taper. Patient was also underwent bronchoscopy. 4. History of paroxysmal atrial fibrillation. Patient refused anticoagulation during his hospitalization patient maintained on Cardizem. Patient reports history of bleeding with epitaxis and hematomas 5. History of congestive heart failure 6. History of coronary artery disease 7. History of chronic back pain 8. Hyperthyroidism. Patient maintained on Tapazole 9. Hypokalemia. Potassium 3.3. Orders replace per protocol. We'll continue to monitor 10. Increase lower extremity edema. Fluids discontinued patient's oral intake has improved. Chest x-ray completed showing increasing right pleural effusion compared to last exam. No overt heart failure. Osteopenia Patient received 1 dose of IV Lasix 40 mg. patient has been refusing to take subcutaneous heparin for DVT prophylaxis she was counseled in length in that regard now she is agreeable to take Lovenox subcu once daily Will check right lower extremity Doppler to rule out DVT DVT prophylaxis heparin. GI prophylaxis Protonix
--- NOTE | 2019-02-08 15:54 | US ---
EXAMINATION TYPE: US venous doppler duplex LE RT DATE OF EXAM: 02/08/2019 3:10 PM COMPARISON: CLINICAL HISTORY: right leg swelling. Right leg pain. No hx of DVT. Not on blood thinners. SIDE PERFORMED: Right TECHNIQUE: The lower extremity deep venous system is examined utilizing real time linear array sonog jed with graded compression, doppler sonography and color-flow sonography. VESSELS IMAGED: External Iliac Vein (EIV) Common Femoral Vein Deep Femoral Vein Greater Saphenous Vein * Femoral Vein Popliteal Vein Small Saphenous Vein * Proximal Calf Veins (* superficial vessels) Grayscale, color doppler, spectral doppler imaging performed of the deep veins of the right lower ext remity. There is normal flow, compressibility, vascular waveforms. Right Leg: Negative for DVT. Superficial edema seen posterior right knee. IMPRESSION: No sonographic evidence of deep venous thrombosis within the right lower extremity.
[2019-02-08] MEDS: ENOXAPARIN 40 MG/0.4 ML SYRINGE SQ SCH (17:07)
[2019-02-08 17:18] LABS: Glucose,Whole Blood 112 mg/dL (75-99)
[2019-02-08] MEDS: DILTIAZEM CD 180 MG CAP.ER.24H PO SCH (20:40)
[2019-02-08] MEDS: MONTELUKAST 10 MG TAB PO SCH (20:41)
[2019-02-08] MEDS: PRAMIPEXOLE 0.5 MG TAB PO SCH (20:41)
[2019-02-08] MEDS: MELATONIN 5 MG TABLET PO SCH (20:41)
[2019-02-08 20:58] LABS: Glucose,Whole Blood 110 mg/dL (75-99)
--- NOTE | 2019-02-08 21:16 | P.PN ---
Subjective Progress Note Date: 02/08/19 Principal diagnosis: Congestive heart failure and acute on chronic diastolic heart failure likely related to fluid overload, C. difficile colitis, chronic hypoxic respiratory failure on home oxygen, severe COPD emphysema, coronary artery disease, chronic back pain, hyperthyroidism, electrolyte imbalance with hypokalemia 02/08/2019, patient seen eval examined during the rounds her shortness of breath slightly better still have swelling in the lower extremity which is diffuse even bilateral I have reviewed the ultrasound of the chest there is about 4 cm fluid present on the right side, which indicated small fluid risk of complication higher on left side no effusion has been seen will continue Lasix and monitored closely This is a 63-year-old female with baseline history of severe COPD with chronic hypoxic and hypercapnic respiratory failure admitted into the hospital with abdominal pain described as 10 out of 10 in severity sharp diffuse abdominal pain been getting worse over the past 5 days associated with nausea and couple episodes of vomiting nonbloody nonbilious. With progressively worsening diarrhea last night she was having frequent bowel movements all night patient has not looked at her diarrhea to verify whether there is blood or melena. Patient has history of C. diff 1 year ago. She was recently hospitalized for acute COPD exacerbation was given cefepime while inpatient due to history of Pseudomonas and was discharged on Ceftin 10 days ago. Patient reports chills and subjective fevers. CT imaging in the ED for the abdomen suggested colitis p atient clinical picture fits acute C. diff colitis for which she is treated for during this admission. Patient met sepsis criteria leukocytosis and tachycardia was given IV fluids and started on oral vancomycin. Patient still taking tapering doses of steroids. Which could be contributing into her leukocytosis. Patient has intermittent shortness of breath I repeat chest x-ray was done now showing a small to moderate right-sided pleural effusion increase compared to x-ray done at the time admission, patient has been rehydrated with the fluids also has +1-2 ankle edema as well, patient has rec eived 2 doses of Lasix yesterday and today Objective - Vital Signs Vital signs: Vital Signs Temp 98.5 F 02/08/19 19:05 Pulse 88 02/08/19 21:01 Resp 18 02/08/19 19:05 BP 134/69 02/08/19 19:05 Pulse Ox 96 02/08/19 19:05 Intake & Output 02/08/19 02/08/19 02/09/19 06:59 18:59 06:59 Intake Total 1000 160 350 Balance 1000 160 350 Weight 64.1 kg Intake: Oral 1000 160 350 Other: # Voids 2 3 1 # Bowel Movements 2 - Exam - Constitutional General appearance: cooperative, disheveled, mild distress - EENT Eyes: anicteric sclerae, EOMI, PERRLA, poor dentition, normal appearance ENT: normal oropharynx Ears: bilateral: normal - Neck Neck: normal ROM Carotids: bilateral: upstroke normal, bruit absent Thyroid: bilateral: normal size - Respiratory Respiratory: right: dullness (On percussion), bilateral: rales (At the bases), rhonchi (Coarse bilateral), negative: CTA - Cardiovascular Rhythm: regular Heart sounds: normal: S1, S2 - Gastrointestinal General gastrointestinal: decreased bowel sounds, soft - Musculoskeletal Musculoskeletal: gait normal, generalized weakness, strength equal bilaterally - Psychiatric Psychiatric: A&O x's 3, appropriate affect, intact judgment & insight +1 edema and lower extremity equal bilateral - Labs CBC & Chem 7: 02/08/19 07:48 02/08/19 07:48 Labs: Abnormal Lab Results - Last 24 Hours (Table) 02/08/19 02/08/19 02/08/19 Range/Units 07:48 07:48 11:38 RBC 3.63 L (3.80-5.40) m/uL Hgb 10.6 L (11.4-16.0) gm/dL MCHC 30.5 L (31.0-37.0) g/dL Sodium 136 L (137-145) mmol/L Chloride 93 L (98-107) mmol/L Carbon Dioxide 39 H (22-30) mmol/L Creatinine 0.32 L (0.52-1.04) mg/dL POC Glucose (mg/dL) 130 H (75-99) mg/dL Calcium 8.1 L (8.4-10.2) mg/dL Total Protein 4.9 L (6.3-8.2) g/dL Albumin 2.5 L (3.5-5.0) g/dL 02/08/19 02/08/19 Range/Units 17:05 20:47 RBC (3.80-5.40) m/uL Hgb (11.4-16.0) gm/dL MCHC (31.0-37.0) g/dL Sodium (137-145) mmol/L Chloride (98-107) mmol/L Carbon Dioxide (22-30) mmol/L Creatinine (0.52-1.04) mg/dL POC Glucose (mg/dL) 112 H 110 H (75-99) mg/dL Calcium (8.4-10.2) mg/dL Total Protein (6.3-8.2) g/dL Albumin (3.5-5.0) g/dL Microbiology - Last 24 Hours (Table) 02/02/19 16:36 Blood Culture - Final Blood No Growth after 144 hours Assessment and Plan Assessment: Right-sided pleural effusion new onset suspect related to fluid overload Hypercapnic hypoxic chronic respiratory failure Advanced COPD C. difficile colitis and abdominal pain related to that Chronic atrial fibrillation Congestive heart failure likely diastolic heart failure related chronic atrial fibrillation and fluid overload Chronic back pain Lower extremity edema Plan: gentle diuresis will keep patient on Lasix every day 40 mg daily Reviewed the ultrasound of the chest small pleural effusion noted will observe Continue taper the steroids for DC Increase activity as tolerated Continue supplemental oxygen Further recommendations pending plan of care as per clinical response of the patient Time with Patient: Greater than 30
[2019-02-09] MEDS: IPRATROPIUM-ALBUTEROL 3 ML NEB INHALATION SCH ×6 (00:37→19:44)
[2019-02-09] MEDS: HYDROmorphone 0.5 MG/0.5 ML SYRINGE IVP PRN ×5 (01:21→21:30)
[2019-02-09] MEDS: HYDROcodone/APAP 10-325MG 1 EACH TAB PO PRN ×3 (06:28→20:21)
[2019-02-09 07:08] LABS: Glucose,Whole Blood 88 mg/dL (75-99)
[2019-02-09] MEDS: FLUTICASONE 110 MCG INHALER INHALATION SCH ×2 (07:23→19:44)
[2019-02-09 07:32] LABS: Basophils % (A) 0 %; Eosinophils # (A) 0.2 k/uL (0-0.7); Eosinophils % (A) 2 %; HGB 11.3 gm/dL (11.4-16.0); Hypochromasia Slight; Lymphocytes # (A) 1.3 k/uL (1.0-4.8); Lymphocytes % (A) 11 %; MCH 29.7 pg (25.0-35.0); MCHC 31.5 g/dL (31.0-37.0); MCV 94.4 fL (80.0-100.0); Mean Platelet Volume 7.2; Monocytes # (A) 0.5 k/uL (0-1.0); Monocytes % (A) 4 %; Neutrophils # (A) 8.8 k/uL (1.3-7.7); Neutrophils % (A) 80 %; Platelet Count 351 k/uL (150-450); RBC 3.81 m/uL (3.80-5.40); RDW 14.2 % (11.5-15.5); WBC 11.1 k/uL (3.8-10.6)
[2019-02-09 07:42] LABS: ALT 29 U/L (9-52); AST 20 U/L (14-36); African American GFR (CKD) >90 (>60 ml/min/1.73 sqM); Albumin 2.7 g/dL (3.5-5.0); Alkaline Phosphatase 66 U/L (38-126); Anion Gap 3 mmol/L; Blood Urea Nitrogen 8 mg/dL (7-17); Calcium 8.4 mg/dL (8.4-10.2); Carbon Dioxide 40 mmol/L (22-30); Chloride 92 mmol/L (98-107); Glucose 79 mg/dL (74-99); Potassium 4.5 mmol/L (3.5-5.1); Sodium 135 mmol/L (137-145); Total Bilirubin 0.3 mg/dL (0.2-1.3); Total Protein 5.3 g/dL (6.3-8.2)
[2019-02-09] MEDS: INSULIN ASPART (NovoLOG) 100 UNIT/ML VIAL SQ SCH ×3 (07:42→17:18)
[2019-02-09] MEDS: PANTOPRAZOLE 40 MG/10 ML VIAL IV SCH (09:08)
[2019-02-09] MEDS: VANCOMYCIN ORAL SOLUTION 250 MG/5 ML BOTTLE PO SCH ×3 (09:13→18:01)
[2019-02-09] MEDS: FUROSEMIDE 40 MG TAB PO SCH (09:14)
[2019-02-09] MEDS: METHIMAZOLE 5 MG TAB PO SCH (09:14)
[2019-02-09] MEDS: ENOXAPARIN 40 MG/0.4 ML SYRINGE SQ SCH (09:14)
[2019-02-09] MEDS: CHOLESTYRAMINE (WITH SUGAR) 4 GM PACKET PO SCH ×2 (09:15→20:20)
[2019-02-09] MEDS: predniSONE 20 MG TAB PO SCH (09:15)
--- NOTE | 2019-02-09 10:57 | P.PN ---
Subjective Progress Note Date: 02/09/19 This is a 63-year-old female patient who presented with abdominal pain. Patient was recently admitted for acute tracheobronchitis and COPD exacerbation. Patient reports that over the weekend she had increased nausea and diarrhea. Patient reports that throughout Sunday abdominal pain and diarrhea became increasingly worse and she presented to the ER for further evaluation. Patient was recently discharged home on Ceftin and prednisone taper. Patient also reports fever and chills. She has a known past medical history COPD with oxygen dependence, CAD, heart failure, GERD, hypertension, myocardial infarction, mitral valve prolapse, osteoporosis, paroxysmal atrial fibrillation, IBS and C. diff in 2015. Stool for C. diff positive. CT of abdomen and pelvis completed showing mild ascites fluid that is change compared to old exam. Mild wall thickening of the sigmoid colon consistent with mild colitis. This appears improved compared to old computed tomography scan there is increased wall t hickening of the cecum consistent with colitis this change compared to old exam. Chest x-ray completed showing no active cardiopulmonary disease. No change. EKG completed showing sinus rhythm with occasional premature ventricular complexes. On 02/03/2019 patient is alert and oriented 3. At this time patient is still complaining of abdominal pain. Patient reports she had 4 loose stools tonight. Patient denies chest pain or shortness of breath. Patient denies nausea but no emesis. She denies any urinary burning or frequency. On 02/04/2019 patient is alert and oriented 3. Patient does state improvement with abdominal pain and nausea. Patient has been able to tolerate minimum diet. Infectious disease is following. Patient remains on oral vancomycin. Patient suddenly elevated 100.3. At this time patient denies any chest pain or shortness breath. Patient still having abdominal pain but is improved. Patient denies any nausea vomiting or diarrhea. Patient denies any urinary burning or frequency On 02/05/2019 patient is alert and oriented 3. Patient reports that after she ate yesterday she did have increased abdominal pain with diarrhea. At this time abdominal pain has slightly improved. Patient states she had possibly 3 loose stools throughout night. Patient remains on oral vancomycin and ID is following. Patient did have low-grade temp 99.7. Patient denies any chest pain or shortness of breath. Patient denies any emesis. Patient does have occasiona l nausea. Patient denies any urinary burning or frequency. On 02/06/2019 patient is alert and oriented 3. Patient is having improved diet. Patient reports she is still having occasional diarrhea after eating. Patient also complaining about increased weight gain and edema. Fluids will be DC'd due to increase oral intake. Will order chest x-ray. Patient denies any chest pain. Patient does complain of occasional shortness breath with exertion. Patient denies nausea or vomiting. Patient denies any urinary burning or frequency. Question added per infectious disease for symptom control. On 02/07/2019 patient is alert and oriented 3. Patient received 1 dose of IV Lasix yesterday. Patient still complaining of increased edema. Patient also his reports that he still having abdominal pain after eating. Patient has been afebrile now for 48 hours. Patient remains on oral Flagyl and Questran. Infectious disease is following. At this time patient is complaining of shortness breath with activity. Patient denies nausea or vomiting. Patient is complaining of still occasional diarrhea. Patient denies any urinary burning or frequency. On 02/08/2019 patient was seen and examined on the medical floor she is alert and oriented 3 she is complaining of right lower extremity swelling, she is still complaining of diarrhea, and complaining of shortness of breath with activity, otherwise she denies any complaints there is no fever or chills no headache or dizziness no chest pain no cough no nausea or vomiting no abdominal pain and no urinary symptoms. Patient has been refusing to take subcu heparin. On 02/09/2019 patient was seen and examined on the medical floor she is complaining of abdominal pain and nausea she had 2 bouts of diarrhea last night she is also complaining of bilateral lower extremity swelling she is complaining of shortness of breath otherwise she denies any complaints there is no fever or chills no headache or dizziness no chest pain no vomiting no urinary symptoms. Objective - Vital Signs Vital signs: Vital Signs Temp 100.5 F H 02/09/19 08:50 Pulse 92 02/09/19 08:50 Resp 16 02/09/19 08:50 BP 112/62 02/09/19 08:50 Pulse Ox 96 02/09/19 08:50 Intake & Output 02/08/19 02/09/19 02/09/19 18:59 06:59 18:59 Intake Total 160 600 Output Total 1 Balance 160 599 Weight 62.9 kg Intake: Oral 160 600 Output: Urine/Stool Mix 1 Other: # Voids 3 2 # Bowel Movements 2 1 - Exam In general patient is alert and oriented 3 in no apparent distress Head normocephalic and atraumatic Neck supple no JVD no goiter Lungs clear to auscultation bilaterally no wheezing or crackles Heart regular rate and rhythm S1-S2, no rub or gallop Abdomen is soft tender to palpation Extremities +1 lower extremity edema right more than left Neuro no gross focal neurological deficit - Labs CBC & Chem 7: 02/09/19 07:02 02/09/19 07:02 Labs: Abnormal Lab Results - Last 24 Hours (Table) 02/08/19 02/08/19 02/08/19 Range/Units 11:38 17:05 20:47 WBC (3.8-10.6) k/uL Hgb (11.4-16.0) gm/dL Neutrophils # (1.3-7.7) k/uL Sodium (137-145) mmol/L Chloride (98-107) mmol/L Carbon Dioxide (22-30) mmol/L Creatinine (0.52-1.04) mg/dL POC Glucose (mg/dL) 130 H 112 H 110 H (75-99) mg/dL Total Protein (6.3-8.2) g/dL Albumin (3.5-5.0) g/dL 02/09/19 02/09/19 Range/Units 07:02 07:02 WBC 11.1 H (3.8-10.6) k/uL Hgb 11.3 L (11.4-16.0) gm/dL Neutrophils # 8.8 H (1.3-7.7) k/uL Sodium 135 L (137-145) mmol/L Chloride 92 L (98-107) mmol/L Carbon Dioxide 40 H (22-30) mmol/L Creatinine 0.37 L (0.52-1.04) mg/dL POC Glucose (mg/dL) (75-99) mg/dL Total Protein 5.3 L (6.3-8.2) g/dL Albumin 2.7 L (3.5-5.0) g/dL Microbiology - Last 24 Hours (Table) 02/02/19 16:36 Blood Culture - Final Blood No Growth after 144 hours Assessment and Plan Plan: 1. Abdominal pain related to C. diff colitis with leukocytosis. CT of abdomen and pelvis completed showing mild ascites fluid that his change compared to old exam. Mild wall thickening of the sigmoid colon consistent with mild colitis. This appears improved compared to old computed tomography scan. Increased wall thickening of the cecum, consistent with colitis that his change compared to old exam patient started on oral vancomycin. Stool cultures negative. Patient positive for C. diff. infectious disease following 2. Chronic hypoxic respiratory failure maintained on home O2 3. Recent exacerbation of COPD and tracheobronchitis. Patient was discharged on antibiotics and prednisone taper. Patient was also underwent bronchoscopy. 4. History of paroxysmal atrial fibrillation. Patient refused anticoagulation during his hospitalization patient maintained on Cardizem. Patient reports history of bleeding with epitaxis and hematomas 5. History of congestive heart failure 6. History of coronary artery disease 7. History of chronic back pain 8. Hyperthyroidism. Patient maintained on Tapazole 9. Hypokalemia. Potassium 3.3. Orders replace per protocol. We'll continue to monitor 10. Increase lower extremity edema. Fluids discontinued patient's oral intake has improved. Chest x-ray completed showing increasing right pleural effusion compared to last exam. No overt heart Patient received 1 dose of IV Lasix 40 mg. patient has been refusing to take subcutaneous heparin for DVT prophylaxis she was counseled in length in that regard now she is agreeable to take Lovenox subcu once daily. Lower extremity Doppler was negative for DVT at this time, will give 1 dose of IV Lasix, will decrease dose of Cardizem as patient thinks that it is related to her lower extremity swelling DVT prophylaxis heparin. GI prophylaxis Protonix
[2019-02-09] MEDS: ONDANSETRON 4 MG/2 ML VIAL IVP PRN (11:26)
[2019-02-09] MEDS: ALPRAZolam 0.25 MG TAB PO PRN (11:26)
[2019-02-09 11:46] LABS: Glucose,Whole Blood 112 mg/dL (75-99)
--- NOTE | 2019-02-09 15:13 | P.PN ---
Subjective Progress Note Date: 02/09/19 Principal diagnosis: Congestive heart failure and acute on chronic diastolic heart failure likely related to fluid overload, C. difficile colitis, chronic hypoxic respiratory failure on home oxygen, severe COPD emphysema, coronary artery disease, chronic back pain, hyperthyroidism, electrolyte imbalance with hypokalemia 02/09/2019, patient seen and evaluated examined during the rounds shortness of breath has improved still left cough congestion, swelling in the lower extre mities still present but slightly improved though, patient has high CO2 likely related to chronic respiratory failure Lasix has been switched to by mouth 02/08/2019, patient seen eval examined during the rounds her shortness of breath slightly better still have swelling in the lower extremity which is diffuse even bilateral I have reviewed the ultrasound of the chest there is about 4 cm fluid present on the right side, which indicated small fluid risk of complication higher on left side no effusion has been seen will continue Lasix and monitored closely This is a 63-year-old female with baseline history of severe COPD with chronic hypoxic and hypercapnic respiratory failure admitted into the hospital with abdominal pain described as 10 out of 10 in severity sharp diffuse abdominal pain been getting worse over the past 5 days associated with nausea and couple episodes of vomiting nonbloody nonbilious. With progressively worsening diarrhea last night she was having frequent bowel movements all night patient has not looked at her diarrhea to verify whether there is blood or melena. Patient has history of C. diff 1 year ago. She was recently hospitalized for acute COPD exacerbation was given cefepime while inpatient due to history of Pseudomonas and was discharged on Ceftin 10 days ago. Patient reports chills and subjective fevers. CT imaging in the ED for the abdomen suggested colitis patient clinical picture fits acute C. diff colitis for which she is treated for during this admission. Patient met sepsis criteria leukocytosis and tachycardia was given IV fluids and started on oral vancomycin. Patient still taking tapering doses of steroids. Which could be contributing into her leukocytosis. Patient has intermittent shortness of breath I repeat chest x-ray was done now showing a small to moderate right-sided pleural effusion increase compared to x-ray done at the time admission, patient has been rehydrated with the fluids also has +1-2 ankle edema as well, patient has received 2 doses of Lasix yesterday and today Objective - Vital Signs Vital signs: Vital Signs Temp 100.5 F H 02/09/19 08:50 Pulse 88 02/09/19 11:29 Resp 16 02/09/19 08:50 BP 112/62 02/09/19 08:50 Pulse Ox 96 02/09/19 08:50 Intake & Output 02/08/19 02/09/19 02/09/19 18:59 06:59 18:59 Intake Total 160 600 560 Output Total 1 Balance 160 599 560 Weight 62.9 kg Intake: Oral 160 600 560 Output: Urine/Stool Mix 1 Other: Voiding Method Toilet # Voids 3 2 3 # Bowel Movements 2 1 - Exam - Constitutional General appearance: cooperative, disheveled, mild distress - EENT Eyes: anicteric sclerae, EOMI, PERRLA, poor dentition, normal appearance ENT: normal oropharynx Ears: bilateral: normal - Neck Neck: normal ROM Carotids: bilateral: upstroke normal, bruit absent Thyroid: bilateral: normal size - Respiratory Respiratory: right: dullness (On percussion), bilateral: rales (At the bases), rhonchi (Coarse bilateral), negative: CTA - Cardiovascular Rhythm: regular Heart sounds: normal: S1, S2 - Gastrointestinal General gastrointestinal: decreased bowel sounds, soft - Musculoskeletal Musculoskeletal: gait normal, generalized weakness, strength equal bilaterally - Psychiatric Psychiatric: A&O x's 3, appropriate affect, intact judgment & insight +1 edema and lower extremity equal bilateral - Labs CBC & Chem 7: 02/09/19 07:02 02/09/19 07:02 Labs: Abnormal Lab Results - Last 24 Hours (Table) 02/08/19 02/08/19 02/09/19 Range/Units 17:05 20:47 07:02 WBC (3.8-10.6) k/uL Hgb (11.4-16.0) gm/dL Neutrophils # (1.3-7.7) k/uL Sodium 135 L (137-145) mmol/L Chloride 92 L (98-107) mmol/L Carbon Dioxide 40 H (22-30) mmol/L Creatinine 0.37 L (0.52-1.04) mg/dL POC Glucose (mg/dL) 112 H 110 H (75-99) mg/dL Total Protein 5.3 L (6.3-8.2) g/dL Albumin 2.7 L (3.5-5.0) g/dL 02/09/19 02/09/19 Range/Units 07:02 11:35 WBC 11.1 H (3.8-10.6) k/uL Hgb 11.3 L (11.4-16.0) gm/dL Neutrophils # 8.8 H (1.3-7.7) k/uL Sodium (137-145) mmol/L Chloride (98-107) mmol/L Carbon Dioxide (22-30) mmol/L Creatinine (0.52-1.04) mg/dL POC Glucose (mg/dL) 112 H (75-99) mg/dL Total Protein (6.3-8.2) g/dL Albumin (3.5-5.0) g/dL Microbiology - Last 24 Hours (Table) 02/02/19 16:36 Blood Culture - Final Blood No Growth after 144 hours Assessment and Plan Assessment: Right-sided pleural effusion new onset suspect related to fluid overload on ultrasound of the small amount Hypercapnic hypoxic chronic respiratory failure Advanced COPD C. difficile colitis and abdominal pain related to that Chronic atrial fibrillation Congestive heart failure likely diastolic heart failure related chronic atrial fibrillation and fluid overload Chronic back pain Lower extremity edema Plan: gentle diuresis will keep patient on Lasix every day 40 mg daily monitor CO2 closely Reviewed the ultrasound of the chest small pleural effusion noted will observe Continue taper the steroids for DC Increase activity as tolerated Continue supplemental oxygen Further recommendations pending plan of care as per clinical response of the patient Time with Patient: Greater than 30
[2019-02-09 16:53] LABS: Glucose,Whole Blood 141 mg/dL (75-99)
[2019-02-09] MEDS: CHERRY FLAVOR 60 ML BOTTLE PO PRN (18:01)
[2019-02-09] MEDS: PRAMIPEXOLE 0.5 MG TAB PO SCH (20:20)
[2019-02-09] MEDS: MELATONIN 5 MG TABLET PO SCH (20:20)
[2019-02-09] MEDS: MONTELUKAST 10 MG TAB PO SCH (20:21)
[2019-02-09 21:50] LABS: Glucose,Whole Blood 98 mg/dL (75-99)
[2019-02-10] MEDS: INSULIN ASPART (NovoLOG) 100 UNIT/ML VIAL SQ SCH ×5 (00:14→20:20)
[2019-02-10] MEDS: IPRATROPIUM-ALBUTEROL 3 ML NEB INHALATION SCH ×6 (00:57→20:49)
[2019-02-10] MEDS: HYDROmorphone 0.5 MG/0.5 ML SYRINGE IVP PRN ×5 (01:17→20:23)
[2019-02-10] MEDS: HYDROcodone/APAP 10-325MG 1 EACH TAB PO PRN ×4 (03:53→22:33)
[2019-02-10] MEDS: ONDANSETRON 4 MG/2 ML VIAL IVP PRN ×2 (03:55→17:10)
[2019-02-10] MEDS: VANCOMYCIN ORAL SOLUTION 250 MG/5 ML BOTTLE PO SCH ×4 (05:00→23:48)
[2019-02-10] MEDS: ACETAMINOPHEN TAB 325 MG TAB PO PRN (06:59)
[2019-02-10 07:07] LABS: Glucose,Whole Blood 94 mg/dL (75-99)
[2019-02-10] MEDS: FUROSEMIDE 40 MG TAB PO SCH (08:07)
[2019-02-10] MEDS: predniSONE 20 MG TAB PO SCH (08:07)
[2019-02-10] MEDS: ENOXAPARIN 40 MG/0.4 ML SYRINGE SQ SCH (08:08)
[2019-02-10] MEDS: FLUTICASONE 110 MCG INHALER INHALATION SCH ×2 (08:08→20:49)
[2019-02-10] MEDS: CHOLESTYRAMINE (WITH SUGAR) 4 GM PACKET PO SCH ×2 (08:08→20:21)
[2019-02-10] MEDS: PANTOPRAZOLE 40 MG TABLET PO SCH (08:45)
[2019-02-10] MEDS: METHIMAZOLE 5 MG TAB PO SCH (08:45)
[2019-02-10] MEDS: DILTIAZEM CD 240 MG CAP.ER.24H PO SCH (08:45)
[2019-02-10 09:24] LABS: Basophils % (A) 0 %; Eosinophils # (A) 0.2 k/uL (0-0.7); Eosinophils % (A) 1 %; HCT 36.6 % (34.0-46.0); HGB 11.5 gm/dL (11.4-16.0); Hypochromasia Slight; Lymphocytes # (A) 1.3 k/uL (1.0-4.8); Lymphocytes % (A) 10 %; MCH 29.9 pg (25.0-35.0); MCHC 31.5 g/dL (31.0-37.0); MCV 94.9 fL (80.0-100.0); Mean Platelet Volume 7.2; Monocytes # (A) 0.6 k/uL (0-1.0); Monocytes % (A) 5 %; Neutrophils # (A) 10.6 k/uL (1.3-7.7); Neutrophils % (A) 81 %; Platelet Count 380 k/uL (150-450); RBC 3.85 m/uL (3.80-5.40); RDW 14.2 % (11.5-15.5)
[2019-02-10 09:43] LABS: ALT 32 U/L (9-52); AST 22 U/L (14-36); African American GFR (CKD) >90 (>60 ml/min/1.73 sqM); Albumin 2.8 g/dL (3.5-5.0); Alkaline Phosphatase 78 U/L (38-126); Anion Gap 6 mmol/L; Blood Urea Nitrogen 10 mg/dL (7-17); Calcium 8.5 mg/dL (8.4-10.2); Carbon Dioxide 37 mmol/L (22-30); Chloride 93 mmol/L (98-107); Glucose 87 mg/dL (74-99); Potassium 4.5 mmol/L (3.5-5.1); Sodium 136 mmol/L (137-145); Total Bilirubin 0.2 mg/dL (0.2-1.3); Total Protein 5.5 g/dL (6.3-8.2)
[2019-02-10 11:39] LABS: Glucose,Whole Blood 109 mg/dL (75-99)
[2019-02-10] MEDS: CHERRY FLAVOR 60 ML BOTTLE PO PRN ×2 (12:27→17:04)
--- NOTE | 2019-02-10 13:41 | P.PN ---
Subjective Progress Note Date: 02/10/19 This is a 63-year-old female patient who presented with abdominal pain. Patient was recently admitted for acute tracheobronchitis and COPD exacerbation. Patient reports that over the weekend she had increased nausea and diarrhea. Patient reports that throughout Sunday abdominal pain and diarrhea became increasingly worse and she presented to the ER for further evaluation. Patient was recently discharged home on Ceftin and prednisone taper. Patient also reports fever and chills. She has a known past medical history COPD with oxygen dependence, CAD, heart failure, GERD, hypertension, myocardial infarction, mitral valve prolapse, osteoporosis, paroxysmal atrial fibrillation, IBS and C. diff in 2015. Stool for C. diff positive. CT of abdomen and pelvis completed showing mild ascites fluid that is change compared to old exam. Mild wall thickening of the sigmoid colon consistent with mild colitis. This appears improved compared to old computed tomography scan there is increased wall th ickening of the cecum consistent with colitis this change compared to old exam. Chest x-ray completed showing no active cardiopulmonary disease. No change. EKG completed showing sinus rhythm with occasional premature ventricular complexes. On 02/03/2019 patient is alert and oriented 3. At this time patient is still complaining of abdominal pain. Patient reports she had 4 loose stools tonight. Patient denies chest pain or shortness of breath. Patient denies nausea but no emesis. She denies any urinary burning or frequency. On 02/04/2019 patient is alert and oriented 3. Patient does state improvement with abdominal pain and nausea. Patient has been able to tolerate minimum diet. Infectious disease is following. Patient remains on oral vancomycin. Patient suddenly elevated 100.3. At this time patient denies any chest pain or shortness breath. Patient still having abdominal pain but is improved. Patient denies any nausea vomiting or diarrhea. Patient denies any urinary burning or frequency On 02/05/2019 patient is alert and oriented 3. Patient reports that after she ate yesterday she did have increased abdominal pain with diarrhea. At this time abdominal pain has slightly improved. Patient states she had possibly 3 loose stools throughout night. Patient remains on oral vancomycin and ID is following. Patient did have low-grade temp 99.7. Patient denies any chest pain or shortness of breath. Patient denies any emesis. Patient does have occasional nausea. Patient denies any urinary burning or frequency. On 02/06/2019 patient is alert and oriented 3. Patient is having improved diet. Patient reports she is still having occasional diarrhea after eating. Patient also complaining about increased weight gain and edema. Fluids will be DC'd due to increase oral intake. Will order chest x-ray. Patient denies any chest pain. Patient does complain of occasional shortness breath with exertion. Patient denies nausea or vomiting. Patient denies any urinary burning or frequency. Question added per infectious disease for symptom control. On 02/07/2019 patient is alert and oriented 3. Patient received 1 dose of IV Lasix yesterday. Patient still complaining of increased edema. Patient also his reports that he still having abdominal pain after eating. Patient has been afebrile now for 48 hours. Patient remains on oral Flagyl and Questran. Infectious disease is following. At this time patient is complaining of shortness breath with activity. Patient denies nausea or vomiting. Patient is complaining of still occasional diarrhea. Patient denies any urinary burning or frequency. On 02/08/2019 patient was seen and examined on the medical floor she is alert and oriented 3 she is complaining of right lower extremity swelling, she is still complaining of diarrhea, and complaining of shortness of breath with activity, otherwise she denies any complaints there is no fever or chills no headache or dizziness no chest pain no cough no nausea or vomiting no abdominal pain and no urinary symptoms. Patient has been refusing to take subcu heparin. On 02/09/2019 patient was seen and examined on the medical floor she is complaining of abdominal pain and nausea she had 2 bouts of diarrhea last night she is also complaining of bilateral lower extremity swelling she is complaining of shortness of breath otherwise she denies any complaints there is no fever or chills no headache or dizziness no chest pain no vomiting no urinary symptoms. On 02/10/2019 patient reports she had 2 bouts of diarrhea last night and still complaining of abdominal pain with nausea. Patient also complaining of shortness breath with activity pulmonary services are following. Patient maintained on Lasix. Patient denies any chest pain. Patient denies any urinary burning or frequency Objective - Vital Signs Vital signs: Vital Signs Temp 99.0 F 02/10/19 07:25 Pulse 90 02/10/19 11:58 Resp 20 02/10/19 07:25 BP 116/67 07/01/19 07:25 Pulse Ox 95 02/10/19 07:25 Intake & Output 02/09/19 02/10/19 02/10/19 18:59 06:59 18:59 Intake Total 796 800 Balance 796 800 Weight 62.2 kg Intake: Oral 796 800 Other: Voiding Method Toilet # Voids 3 3 # Bowel Movements 0 - Exam Head normocephalic Neck supple Lungs clear to auscultation bilaterally no wheezing or crackles Heart regular rate and rhythm S1-S2, no rub or gallop Abdomen is soft tender to palpation Extremities +1 lower extremity edema Neuro alert and orientated to 3 - Labs CBC & Chem 7: 02/10/19 08:47 02/10/19 08:47 Labs: Abnormal Lab Results - Last 24 Hours (Table) 02/09/19 02/10/19 02/10/19 Range/Units 16:51 08:47 08:47 WBC 13.0 H (3.8-10.6) k/uL Neutrophils # 10.6 H (1.3-7.7) k/uL Sodium 136 L (137-145) mmol/L Chloride 93 L (98-107) mmol/L Carbon Dioxide 37 H (22-30) mmol/L Creatinine 0.43 L (0.52-1.04) mg/dL POC Glucose (mg/dL) 141 H (75-99) mg/dL Total Protein 5.5 L (6.3-8.2) g/dL Albumin 2.8 L (3.5-5.0) g/dL 02/10/19 Range/Units 11:35 WBC (3.8-10.6) k/uL Neutrophils # (1.3-7.7) k/uL Sodium (137-145) mmol/L Chloride (98-107) mmol/L Carbon Dioxide (22-30) mmol/L Creatinine (0.52-1.04) mg/dL POC Glucose (mg/dL) 109 H (75-99) mg/dL Total Protein (6.3-8.2) g/dL Albumin (3.5-5.0) g/dL Assessment and Plan Assessment: 1. Abdominal pain related to C. diff colitis with leukocytosis. CT of abdomen and pelvis completed showing mild ascites fluid that his change compared to old exam. Mild wall thickening of the sigmoid colon consistent with mild colitis. This appears improved compared to old computed tomography scan. Increased wall thickening of the cecum, consistent with colitis that his change compared to old exam patient started on oral vancomycin. Stool cultures negative. Patient positive for C. diff. infectious disease following 2. Chronic hypoxic respiratory failure maintained on home O2 3. Recent exacerbation of COPD and tracheobronchitis. Patient was discharged on antibiotics and prednisone taper. Patient was also underwent bronchoscopy. 4. History of paroxysmal atrial fibrillation. Patient refused anticoagulation during his hospitalization patient maintained on Cardizem. Patient reports history of bleeding with epitaxis and hematomas. Cardizem decreased per patient request due to patient feeling its contributing to lower extremity swelling 5. History of congestive heart failure 6. History of coronary artery disease 7. History of chronic back pain 8. Hyperthyroidism. Patient maintained on Tapazole 9. Hypokalemia. Potassium 3.3. Orders replace per protocol. We'll continue to monitor 10. Increase lower extremity edema. Fluids discontinued patient's oral intake has improved. Chest x-ray completed showing increasing right pleural effusion compared to last exam. No overt heart failure. Osteopenia Patient received 1 dose of IV Lasix 40 mg. 11. Right-sided pleural effusion. Pulmonary services are following. Continue gentle diuresis maintained on Lasix 40 daily DVT prophylaxis lovenox. GI prophylaxis Protonix I performed an examination of the patient and discussed their management with the Nurse Practitioner. I have reviewed the Nurse Practitioner's notes and agree with the documented findings and plan of care
[2019-02-10 16:42] LABS: Glucose,Whole Blood 147 mg/dL (75-99)
[2019-02-10] MEDS: ALPRAZolam 0.25 MG TAB PO PRN (17:04)
--- NOTE | 2019-02-10 17:24 | P.PN ---
Subjective Progress Note Date: 02/10/19 Principal diagnosis: Congestive heart failure and acute on chronic diastolic heart failure likely related to fluid overload, C. difficile colitis, chronic hypoxic respiratory failure on home oxygen, severe COPD emphysema, coronary artery disease, chronic back pain, hyperthyroidism, electrolyte imbalance with hypokalemia 02/10/2019, patient seen eval reexamined during the rounds her shortness of breath is improved now but swelling in lower extremity remains unchanged denies any cough or sputum production labs are reviewed there is stable, still having intermittent diarrhea some element of abdominal pain is present which is improved now 02/09/2019, patient seen and evaluated examined during the rounds shortness of breath has improved still left cough congestion, swelling in the lower extremities still present but slightly improved though, patient has high CO2 likely related to chronic respiratory failure Lasix has been switched to by mouth 02/08/2019, patient seen eval examined during the rounds her shortness of breath slightly better still have swelling in the lower extremity which is diffuse even bilateral I have reviewed the ultrasound of the chest there is about 4 cm fluid present on the right side, which indicated small fluid risk of complication higher on left side no effusion has been seen will continue Lasix and monitored closely This is a 63-year-old female with baseline history of severe COPD with chronic hypoxic and hypercapnic respiratory failure admitted into the hospital with abdominal pain described as 10 out of 10 in severity sharp diffuse abdominal pain been getting worse over the past 5 days associated with nausea and couple episodes of vomiting nonbloody nonbilious. With progressively worsening diarrhea last night she was having frequent bowel movements all night patient has not looked at her diarrhea to verify whether there is blood or melena. Patient has history of C. diff 1 year ago. She was recently hospitalized for acute COPD exacerbation was given cefepime while inpatient due to history of Pseudomonas and was discharged on Ceftin 10 days ago. Patient reports chills and subjective fevers. CT imaging in the ED for the abdomen suggested colitis patient clinical picture fits acute C. diff colitis for which she is treated for during this admission. Patient met sepsis criteria leukocytosis and tachycardia was given IV fluids and started on oral vancomycin. Patient still taking tapering doses of steroids. Which could be contributing into her leukocytosis. Patient has intermittent shortness of breath I repeat chest x-ray was done now showing a small to moderate right-sided pleural effusion increase compared to x-ray done at the time admission, patient has been rehydrated with the fluids also has +1-2 ankle edema as well, patient has received 2 doses of Lasix yesterday and today Objective - Vital Signs Vital signs: Vital Signs Temp 98.3 F 02/10/19 14:25 Pulse 83 02/10/19 14:25 Resp 18 02/10/19 16:00 BP 108/69 02/10/19 14:25 Pulse Ox 98 02/10/19 14:25 Intake & Output 02/09/19 02/10/19 02/10/19 18:59 06:59 18:59 Intake Total 796 800 Balance 796 800 Weight 62.2 kg Intake: Oral 796 800 Other: Voiding Method Toilet # Voids 3 3 3 # Bowel Movements 0 - Exam - Constitutional General appearance: cooperative, disheveled, mild distress - EENT Eyes: anicteric sclerae, EOMI, PERRLA, poor dentition, normal appearance ENT: normal oropharynx Ears: bilateral: normal - Neck Neck: normal ROM Carotids: bilateral: upstroke normal, bruit absent Thyroid: bilateral: normal size - Respiratory Respiratory: right: dullness (On percussion), bilateral: rales (At the bases), rhonchi (Coarse bilateral), negative: CTA - Cardiovascular Rhythm: regular Heart sounds: normal: S1, S2 - Gastrointestinal General gastrointestinal: decreased bowel sounds, soft - Musculoskeletal Musculoskeletal: gait normal, generalized weakness, strength equal bilaterally - Psychiatric Psychiatric: A&O x's 3, appropriate affect, intact judgment & insight +1 edema and lower extremity equal bilateral - Labs CBC & Chem 7: 02/10/19 08:47 02/10/19 08:47 Labs: Abnormal Lab Results - Last 24 Hours (Table) 02/10/19 02/10/19 02/10/19 Range/Units 08:47 08:47 11:35 WBC 13.0 H (3.8-10.6) k/uL Neutrophils # 10.6 H (1.3-7.7) k/uL Sodium 136 L (137-145) mmol/L Chloride 93 L (98-107) mmol/L Carbon Dioxide 37 H (22-30) mmol/L Creatinine 0.43 L (0.52-1.04) mg/dL POC Glucose (mg/dL) 109 H (75-99) mg/dL Total Protein 5.5 L (6.3-8.2) g/dL Albumin 2.8 L (3.5-5.0) g/dL 02/10/19 Range/Units 16:40 WBC (3.8-10.6) k/uL Neutrophils # (1.3-7.7) k/uL Sodium (137-145) mmol/L Chloride (98-107) mmol/L Carbon Dioxide (22-30) mmol/L Creatinine (0.52-1.04) mg/dL POC Glucose (mg/dL) 147 H (75-99) mg/dL Total Protein (6.3-8.2) g/dL Albumin (3.5-5.0) g/dL Assessment and Plan Assessment: Right-sided pleural effusion new onset suspect related to fluid overload on ultrasound of the small amount Hypercapnic hypoxic chronic respiratory failure Advanced COPD C. difficile colitis and abdominal pain related to that Chronic atrial fibrillation Congestive heart failure likely diastolic heart failure related chronic atrial fibrillation and fluid overload Chronic back pain Lower extremity edema Plan: Will do a follow-up chest x-ray gentle diuresis will keep patient on Lasix every day 40 mg daily monitor CO2 closely Reviewed the ultrasound of the chest small pleural effusion noted will observe Continue taper the steroids for DC Increase activity as tolerated Continue supplemental oxygen Further recommendations pending plan of care as per clinical response of the patient Time with Patient: Greater than 30
[2019-02-10 20:03] LABS: Glucose,Whole Blood 143 mg/dL (75-99)
[2019-02-10] MEDS: PRAMIPEXOLE 0.5 MG TAB PO SCH (20:21)
[2019-02-10] MEDS: MONTELUKAST 10 MG TAB PO SCH (20:21)
[2019-02-10] MEDS: MELATONIN 5 MG TABLET PO SCH (20:21)
--- NOTE | 2019-02-10 22:39 | PN ---
PROGRESS NOTE DATE OF SERVICE: 02/10/2019. REASON FOR FOLLOWUP: C difficile colitis. INTERVAL HISTORY: The patient is currently afebrile. The patient has been breathing comfortably. Denies any chest pain. She did have only 1 soft loose stool last night. No nausea, no vomiting. PHYSICAL EXAMINATION: Blood pressure 108/69 with a pulse of 83, temperature 98.3. She is 98% on room air. General description is a middle-aged female up in the chair in no distress. Respiratory system: Unlabored breathing, clear to auscultation anteriorly. Heart S1, S2. Regular rate and rhythm. ABDOMEN: Soft. No tenderness. Extremities are feet. LABS: White count slightly elevated at 13,000 today. DIAGNOSTIC IMPRESSION AND PLAN: Patient with acute C difficile colitis with slow clinical response noted, has slight jump in white count. We will monitor closely. Continue patient on vancomycin and Questran. Continue supportive care. MMODL / IJN: [id number] /
[2019-02-10] MEDS: IBUPROFEN 400 MG TAB PO PRN (23:51)
[2019-02-11] MEDS: IPRATROPIUM-ALBUTEROL 3 ML NEB INHALATION SCH ×7 (02:22→23:04)
[2019-02-11] MEDS: HYDROcodone/APAP 10-325MG 1 EACH TAB PO PRN ×4 (04:31→22:32)
[2019-02-11] MEDS: CHERRY FLAVOR 60 ML BOTTLE PO PRN (05:23)
[2019-02-11] MEDS: VANCOMYCIN ORAL SOLUTION 250 MG/5 ML BOTTLE PO SCH ×2 (05:23→12:38)
[2019-02-11 06:59] LABS: Glucose,Whole Blood 68 mg/dL (75-99)
[2019-02-11] MEDS: FLUTICASONE 110 MCG INHALER INHALATION SCH ×2 (07:18→20:02)
[2019-02-11] MEDS: INSULIN ASPART (NovoLOG) 100 UNIT/ML VIAL SQ SCH ×4 (07:24→21:30)
[2019-02-11] MEDS: PANTOPRAZOLE 40 MG TABLET PO SCH (07:26)
[2019-02-11 07:27] LABS: Glucose,Whole Blood 92 mg/dL (75-99)
[2019-02-11] MEDS: ONDANSETRON 4 MG/2 ML VIAL IVP PRN ×2 (07:29→19:50)
[2019-02-11] MEDS: HYDROmorphone 0.5 MG/0.5 ML SYRINGE IVP PRN ×4 (07:29→19:48)
--- NOTE | 2019-02-11 08:16 | XR ---
EXAMINATION TYPE: XR chest 2V DATE OF EXAM: 02/11/2019 COMPARISON: 02/06/2019 HISTORY: 63-year-old female pneumonia TECHNIQUE: AP and lateral views FINDINGS: Heart upper limits of normal in size. Hyperinflation with flattening of the hemidiaphragms. Improveme nt in previous right pleural effusion. Some patchy right lower lung density remains. IMPRESSION: COPD with improvement in previous right effusion. Some mild patchy infiltrate remains at the right ba se.
[2019-02-11 08:20] LABS: Basophils % (A) 0 %; Eosinophils # (A) 0.2 k/uL (0-0.7); Eosinophils % (A) 2 %; HCT 37.6 % (34.0-46.0); HGB 11.2 gm/dL (11.4-16.0); Hypochromasia Moderate; Lymphocytes # (A) 1.3 k/uL (1.0-4.8); Lymphocytes % (A) 10 %; MCH 28.7 pg (25.0-35.0); MCHC 29.8 g/dL (31.0-37.0); MCV 96.4 fL (80.0-100.0); Mean Platelet Volume 7.8; Monocytes # (A) 0.9 k/uL (0-1.0); Monocytes % (A) 7 %; Neutrophils # (A) 10.4 k/uL (1.3-7.7); Neutrophils % (A) 80 %; Platelet Count 409 k/uL (150-450); WBC 13.1 k/uL (3.8-10.6)
[2019-02-11 08:21] LABS: ALT 28 U/L (9-52); AST 23 U/L (14-36); African American GFR (CKD) >90 (>60 ml/min/1.73 sqM); Albumin 2.9 g/dL (3.5-5.0); Alkaline Phosphatase 63 U/L (38-126); Anion Gap 6 mmol/L; Blood Urea Nitrogen 8 mg/dL (7-17); Calcium 8.7 mg/dL (8.4-10.2); Carbon Dioxide 37 mmol/L (22-30); Chloride 92 mmol/L (98-107); Glucose 78 mg/dL (74-99); Potassium 4.8 mmol/L (3.5-5.1); Sodium 135 mmol/L (137-145); Total Bilirubin 0.3 mg/dL (0.2-1.3); Total Protein 5.5 g/dL (6.3-8.2)
[2019-02-11] MEDS: METHIMAZOLE 5 MG TAB PO SCH (09:04)
[2019-02-11] MEDS: predniSONE 20 MG TAB PO SCH (09:04)
[2019-02-11] MEDS: CHOLESTYRAMINE (WITH SUGAR) 4 GM PACKET PO SCH ×2 (09:04→20:48)
[2019-02-11] MEDS: DILTIAZEM CD 240 MG CAP.ER.24H PO SCH (09:04)
[2019-02-11] MEDS: ENOXAPARIN 40 MG/0.4 ML SYRINGE SQ SCH (09:04)
[2019-02-11] MEDS: FUROSEMIDE 40 MG TAB PO SCH (09:04)
[2019-02-11] MEDS: ALPRAZolam 0.25 MG TAB PO PRN (09:57)
[2019-02-11 11:51] LABS: Glucose,Whole Blood 100 mg/dL (75-99)
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
--- NOTE | 2019-02-11 14:02 | P.PN ---
Subjective Progress Note Date: 02/11/19 This is a 63-year-old female patient who presented with abdominal pain. Patient was recently admitted for acute tracheobronchitis and COPD exacerbation. Patient reports that over the weekend she had increased nausea and diarrhea. Patient reports that throughout Sunday abdominal pain and diarrhea became increasingly worse and she presented to the ER for further evaluation. Patient was recently discharged home on Ceftin and prednisone taper. Patient also reports fever and chills. She has a known past medical history COPD with oxygen dependence, CAD, heart failure, GERD, hypertension, myocardial infarction, mitral valve prolapse, osteoporosis, paroxysmal atrial fibrillation, IBS and C. diff in 2015. Stool for C. diff positive. CT of abdomen and pelvis completed showing mild ascites fluid that is change compared to old exam. Mild wall thickening of the sigmoid colon consistent with mild colitis. This appears improved compared to old computed tomography scan there is increased wall th ickening of the cecum consistent with colitis this change compared to old exam. Chest x-ray completed showing no active cardiopulmonary disease. No change. EKG completed showing sinus rhythm with occasional premature ventricular complexes. On 02/03/2019 patient is alert and oriented 3. At this time patient is still complaining of abdominal pain. Patient reports she had 4 loose stools tonight. Patient denies chest pain or shortness of breath. Patient denies nausea but no emesis. She denies any urinary burning or frequency. On 02/04/2019 patient is alert and oriented 3. Patient does state improvement with abdominal pain and nausea. Patient has been able to tolerate minimum diet. Infectious disease is following. Patient remains on oral vancomycin. Patient suddenly elevated 100.3. At this time patient denies any chest pain or shortness breath. Patient still having abdominal pain but is improved. Patient denies any nausea vomiting or diarrhea. Patient denies any urinary burning or frequency On 02/05/2019 patient is alert and oriented 3. Patient reports that after she ate yesterday she did have increased abdominal pain with diarrhea. At this time abdominal pain has slightly improved. Patient states she had possibly 3 loose stools throughout night. Patient remains on oral vancomycin and ID is following. Patient did have low-grade temp 99.7. Patient denies any chest pain or shortness of breath. Patient denies any emesis. Patient does have occasional nausea. Patient denies any urinary burning or frequency. On 02/06/2019 patient is alert and oriented 3. Patient is having improved diet. Patient reports she is still having occasional diarrhea after eating. Patient also complaining about increased weight gain and edema. Fluids will be DC'd due to increase oral intake. Will order chest x-ray. Patient denies any chest pain. Patient does complain of occasional shortness breath with exertion. Patient denies nausea or vomiting. Patient denies any urinary burning or frequency. Question added per infectious disease for symptom control. On 02/07/2019 patient is alert and oriented 3. Patient received 1 dose of IV Lasix yesterday. Patient still complaining of increased edema. Patient also his reports that he still having abdominal pain after eating. Patient has been afebrile now for 48 hours. Patient remains on oral Flagyl and Questran. Infectious disease is following. At this time patient is complaining of shortness breath with activity. Patient denies nausea or vomiting. Patient is complaining of still occasional diarrhea. Patient denies any urinary burning or frequency. On 02/08/2019 patient was seen and examined on the medical floor she is alert and oriented 3 she is complaining of right lower extremity swelling, she is still complaining of diarrhea, and complaining of shortness of breath with activity, otherwise she denies any complaints there is no fever or chills no headache or dizziness no chest pain no cough no nausea or vomiting no abdominal pain and no urinary symptoms. Patient has been refusing to take subcu heparin. On 02/09/2019 patient was seen and examined on the medical floor she is complaining of abdominal pain and nausea she had 2 bouts of diarrhea last night she is also complaining of bilateral lower extremity swelling she is complaining of shortness of breath otherwise she denies any complaints there is no fever or chills no headache or dizziness no chest pain no vomiting no urinary symptoms. On 02/10/2019 patient reports she had 2 bouts of diarrhea last night and still complaining of abdominal pain with nausea. Patient also complaining of shortness breath with activity pulmonary services are following. Patient maintained on Lasix. Patient denies any chest pain. Patient denies any urinary burning or frequency On 02/11/2019 patient is alert and oriented 3. Patient is still complaining of diarrhea. White blood cell did increase. Discussed case with Dr. Valdez patient has been switched to Dificid. We'll continue to monitor symptoms. At this time patient denies chest pain. Patient is having some shortness of breath. Patient denies nausea vomiting. Patient is still having diarrhea. Patient denies any urinary burning or frequency. Objective - Vital Signs Vital signs: Vital Signs Temp 98.3 F 02/11/19 06:50 Pulse 96 02/11/19 11:02 Resp 18 02/11/19 06:50 BP 120/74 02/11/19 06:50 Pulse Ox 97 02/11/19 06:50 Intake & Output 02/10/19 02/11/19 02/11/19 18:59 06:59 18:59 Intake Total 800 150 Balance 800 150 Weight 61.3 kg Intake: Oral 800 150 Other: Voiding Method Toilet Toilet # Voids 3 1 # Bowel Movements 1 - Exam Head normocephalic Neck supple Lungs clear to auscultation bilaterally no wheezing or crackles Heart regular rate and rhythm S1-S2, no rub or gallop Abdomen is soft tender to palpation Extremities +1 lower extremity edema Neuro alert and orientated to 3 - Labs CBC & Chem 7: 02/11/19 07:28 02/11/19 07:28 Labs: Abnormal Lab Results - Last 24 Hours (Table) 02/10/19 02/10/19 02/11/19 Range/Units 16:40 20:01 06:47 WBC (3.8-10.6) k/uL Hgb (11.4-16.0) gm/dL MCHC (31.0-37.0) g/dL Neutrophils # (1.3-7.7) k/uL Sodium (137-145) mmol/L Chloride (98-107) mmol/L Carbon Dioxide (22-30) mmol/L Creatinine (0.52-1.04) mg/dL POC Glucose (mg/dL) 147 H 143 H 68 L (75-99) mg/dL Total Protein (6.3-8.2) g/dL Albumin (3.5-5.0) g/dL 02/11/19 02/11/19 02/11/19 Range/Units 07:28 07:28 11:37 WBC 13.1 H (3.8-10.6) k/uL Hgb 11.2 L (11.4-16.0) gm/dL MCHC 29.8 L (31.0-37.0) g/dL Neutrophils # 10.4 H (1.3-7.7) k/uL Sodium 135 L (137-145) mmol/L Chloride 92 L (98-107) mmol/L Carbon Dioxide 37 H (22-30) mmol/L Creatinine 0.35 L (0.52-1.04) mg/dL POC Glucose (mg/dL) 100 H (75-99) mg/dL Total Protein 5.5 L (6.3-8.2) g/dL Albumin 2.9 L (3.5-5.0) g/dL Assessment and Plan Assessment: 1. Abdominal pain related to C. diff colitis with leukocytosis. CT of abdomen and pelvis completed showing mild ascites fluid that his change compared to old exam. Mild wall thickening of the sigmoid colon consistent with mild colitis. This appears improved compared to old computed tomography scan. Increased wall thickening of the cecum, consistent with colitis that his change compared to old exam patient started on oral vancomycin. Stool cultures negative. Patient positive for C. diff. infectious disease following. Patient has been switched to dificid per infectious disease. 2. Chronic hypoxic respiratory failure maintained on home O2 3. Recent exacerbation of COPD and tracheobronchitis. Patient was discharged on antibiotics and prednisone taper. Patient was also underwent bronchoscopy. 4. History of paroxysmal atrial fibrillation. Patient refused anticoagulation during his hospitalization patient maintained on Cardizem. Patient reports history of bleeding with epitaxis and hematomas. Cardizem decreased per patient request due to patient feeling its contributing to lower extremity swelling 5. History of congestive heart failure 6. History of coronary artery disease 7. History of chronic back pain 8. Hyperthyroidism. Patient maintained on Tapazole 9. Hypokalemia. Potassium 3.3. Orders replace per protocol. We'll continue to monitor 10. Increase lower extremity edema. Fluids discontinued patient's oral intake has improved. Chest x-ray completed showing increasing right pleural effusion compared to last exam. No overt heart failure. Osteopenia Patient received 1 dose of IV Lasix 40 mg. . 2-D echo completed on 01/22/2019 showing EF between 55 and 60%. BNP ordered 11. Right-sided pleural effusion. Pulmonary services are following. Continue gentle diuresis maintained on Lasix 40 daily DVT prophylaxis lovenox. GI prophylaxis Protonix I performed an examination of the patient and discussed their management with the Nurse Practitioner. I have reviewed the Nurse Practitioner's notes and agree with the documented findings and plan of care
--- NOTE | 2019-02-11 14:25 | P.PN ---
Subjective Progress Note Date: 02/11/19 Principal diagnosis: Congestive heart failure and acute on chronic diastolic heart failure likely related to fluid overload, C. difficile colitis, chronic hypoxic respiratory failure on home oxygen, severe COPD emphysema, coronary artery disease, chronic back pain, hyperthyroidism, electrolyte imbalance with hypokalemia 02/11/2019, patient is overall doing better swelling in the lower extremity has improved still have ongoing diarrhea some shortness of breath is an present but no severe overwhelming wheezing is present patient able to ambulate 02/10/2019, patient seen eval reexamined during the rounds her shortness of breath is improved now but swelling in lower extremity remains unchanged denies any cough or sputum production labs are reviewed there is stable, still having intermittent diarrhea some element of abdominal pain is present which is improved now 02/09/2019, patient seen and evaluated examined during the rounds shortness of breath has improved still left cough congestion, swelling in the lower extremities still present but slightly improved though, patient has high CO2 likely related to chronic respiratory failure Lasix has been switched to by [facility] 02/08/2019, patient seen eval examined during the rounds her shortness of breath slightly better still have swelling in the lower extremity which is diffuse even bilateral I have reviewed the ultrasound of the chest there is about 4 cm fluid present on the right side, which indicated small fluid risk of complication higher on left side no effusion has been seen will continue Lasix and monitored closely This is a 63-year-old female with baseline history of severe COPD with chronic hypoxic and hypercapnic respiratory failure admitted into the hospital with abdominal pain described as 10 out of 10 in severity sharp diffuse abdominal pain been getting worse over the past 5 days associated with nausea and couple episodes of vomiting nonbloody nonbilious. With progressively worsening celina rrhea last night she was having frequent bowel movements all night patient has not looked at her diarrhea to verify whether there is blood or melena. Patient has history of C. diff 1 year ago. She was recently hospitalized for acute COPD exacerbation was given cefepime while inpatient due to history of Pseudomonas and was discharged on Ceftin 10 days ago. Patient reports chills and subjective fevers. CT imaging in the ED for the abdomen suggested colitis patient clinical picture fits acute C. diff colitis for which she is treated for during this admission. Patient met sepsis criteria leukocytosis and tachycardia was given IV fluids and started on oral vancomycin. Patient still taking tapering doses of steroids. Which could be contributing into her leukocytosis. Patient has intermittent shortness of breath I repeat chest x-ray was done now showing a small to moderate right-sided pleural effusion increase compared to x-ray done at the time admission, patient has been rehydrated with the fluids also has +1-2 ankle edema as well, patient has received 2 doses of Lasix yesterday and today Objective - Vital Signs Vital signs: Vital Signs Temp 98.3 F 02/11/19 06:50 Pulse 96 02/11/19 11:02 Resp 18 02/11/19 06:50 BP 120/74 02/11/19 06:50 Pulse Ox 97 02/11/19 06:50 Intake & Output 02/10/19 02/11/19 02/11/19 18:59 06:59 18:59 Intake Total 800 150 Balance 800 150 Weight 61.3 kg Intake: Oral 800 150 Other: Voiding Method Toilet Toilet # Voids 3 1 2 # Bowel Movements 1 - Exam - Constitutional General appearance: cooperative, disheveled, mild distress - EENT Eyes: anicteric sclerae, EOMI, PERRLA, poor dentition, normal appearance ENT: normal oropharynx Ears: bilateral: normal - Neck Neck: normal ROM Carotids: bilateral: upstroke normal, bruit absent Thyroid: bilateral: normal size - Respiratory Respiratory: right: dullness (On percussion), bilateral: rales (At the bases), r honchi (Coarse bilateral), negative: CTA - Cardiovascular Rhythm: regular Heart sounds: normal: S1, S2 - Gastrointestinal General gastrointestinal: decreased bowel sounds, soft - Musculoskeletal Musculoskeletal: gait normal, generalized weakness, strength equal bilaterally - Psychiatric Psychiatric: A&O x's 3, appropriate affect, intact judgment & insight +1 edema and lower extremity equal bilateral - Labs CBC & Chem 7: 02/11/19 07:28 02/11/19 07:28 Labs: Abnormal Lab Results - Last 24 Hours (Table) 02/10/19 02/10/19 02/11/19 Range/Units 16:40 20:01 06:47 WBC (3.8-10.6) k/uL Hgb (11.4-16.0) gm/dL MCHC (31.0-37.0) g/dL Neutrophils # (1.3-7.7) k/uL Sodium (137-145) mmol/L Chloride (98-107) mmol/L Carbon Dioxide (22-30) mmol/L Creatinine (0.52-1.04) mg/dL POC Glucose (mg/dL) 147 H 143 H 68 L (75-99) mg/dL Total Protein (6.3-8.2) g/dL Albumin (3.5-5.0) g/dL 02/11/19 02/11/19 02/11/19 Range/Units 07:28 07:28 11:37 WBC 13.1 H (3.8-10.6) k/uL Hgb 11.2 L (11.4-16.0) gm/dL MCHC 29.8 L (31.0-37.0) g/dL Neutrophils # 10.4 H (1.3-7.7) k/uL Sodium 135 L (137-145) mmol/L Chloride 92 L (98-107) mmol/L Carbon Dioxide 37 H (22-30) mmol/L Creatinine 0.35 L (0.52-1.04) mg/dL POC Glucose (mg/dL) 100 H (75-99) mg/dL Total Protein 5.5 L (6.3-8.2) g/dL Albumin 2.9 L (3.5-5.0) g/dL Assessment and Plan Assessment: Right-sided pleural effusion new onset suspect related to fluid overload on ultrasound of the small amount Hypercapnic hypoxic chronic respiratory failure Advanced COPD C. difficile colitis and abdominal pain related to that Chronic atrial fibrillation Congestive heart failure likely diastolic heart failure related chronic atrial fibrillation and fluid overload Chronic back pain Lower extremity edema Plan: Will do a follow-up chest x-ray gentle diuresis will keep patient on Lasix every day 40 mg daily monitor CO2 closely Reviewed the ultrasound of the chest small pleural effusion noted will observe Continue taper the steroids for DC Increase activity as tolerated Continue supplemental oxygen Further recommendations pending plan of care as per clinical response of the patient Time with Patient: Greater than 30
[2019-02-11] MEDS: FIDAXOMICIN 200 MG TABLET PO SCH ×2 (14:36→20:48)
[2019-02-11 16:39] VITALS: BMI 26.4
[2019-02-11 17:12] LABS: Glucose,Whole Blood 148 mg/dL (75-99)
[2019-02-11 20:10] LABS: Glucose,Whole Blood 104 mg/dL (75-99)
[2019-02-11] MEDS: MONTELUKAST 10 MG TAB PO SCH (20:48)
[2019-02-11] MEDS: MELATONIN 5 MG TABLET PO SCH (20:49)
[2019-02-11] MEDS: PRAMIPEXOLE 0.5 MG TAB PO SCH (20:49)
--- NOTE | 2019-02-11 21:03 | PN ---
PROGRESS NOTE DATE OF SERVICE: 02/11/2019. REASON FOR FOLLOWUP: C difficile colitis. INTERVAL HISTORY: The patient is currently afebrile. Patient complaining of loose stools x2 this morning. Still has some abdominal discomfort, nausea but no vomiting. Still complaining of shortness of breath. No chest pain. No shortness of breath or cough. PHYSICAL EXAMINATION: Blood pressure is 108/64, pulse of 87, temperature 98.2. He is 96% on room air. General description is a middle-aged female up in the bed in no distress. Respiratory system: Unlabored breathing. Clear to auscultation anteriorly. Heart S1, S2. Regular rate and rhythm. Abdomen soft, no tenderness. LABS: Hemoglobin 11.2, white count 13.1. BUN of 8, creatinine 0.35. DIAGNOSTIC IMPRESSION AND PLAN: Patient with recurrent C difficile colitis. This patient seems to be not responding that well to the oral Vancomycin, now slight jump in white count, we will discontinue the vancomycin. Will start the patient on Dificid 1 mg twice a day and see response to the same. Monitor clinical course closely. Continue supportive care. MMODL / IJN: [id number] /
[2019-02-12] MEDS: HYDROmorphone 0.5 MG/0.5 ML SYRINGE IVP PRN ×5 (02:00→20:38)
[2019-02-12] MEDS: IPRATROPIUM-ALBUTEROL 3 ML NEB INHALATION SCH ×5 (04:01→20:26)
[2019-02-12] MEDS: HYDROcodone/APAP 10-325MG 1 EACH TAB PO PRN ×4 (04:25→22:24)
[2019-02-12] MEDS: ALPRAZolam 0.25 MG TAB PO PRN ×2 (05:17→19:42)
[2019-02-12 07:05] LABS: Basophils % (A) 0 %; Eosinophils # (A) 0.2 k/uL (0-0.7); Eosinophils % (A) 1 %; HCT 34.9 % (34.0-46.0); HGB 10.8 gm/dL (11.4-16.0); Hypochromasia Slight; Lymphocytes # (A) 1.1 k/uL (1.0-4.8); Lymphocytes % (A) 10 %; MCH 29.5 pg (25.0-35.0); MCHC 31.1 g/dL (31.0-37.0); Mean Platelet Volume 7.4; Monocytes # (A) 0.9 k/uL (0-1.0); Monocytes % (A) 8 %; Neutrophils # (A) 8.5 k/uL (1.3-7.7); Neutrophils % (A) 78 %; Platelet Count 409 k/uL (150-450); RBC 3.67 m/uL (3.80-5.40); RDW 14.9 % (11.5-15.5)
[2019-02-12 07:09] LABS: African American GFR (CKD) >90 (>60 ml/min/1.73 sqM); Albumin 2.7 g/dL (3.5-5.0); Anion Gap 3 mmol/L; Blood Urea Nitrogen 10 mg/dL (7-17); Calcium 8.4 mg/dL (8.4-10.2); Carbon Dioxide 39 mmol/L (22-30); Chloride 92 mmol/L (98-107); Glucose 65 mg/dL (74-99); Sodium 134 mmol/L (137-145); Total Bilirubin 0.4 mg/dL (0.2-1.3); Total Protein 5.4 g/dL (6.3-8.2)
[2019-02-12 07:12] LABS: Potassium 4.5 mmol/L (3.5-5.1)
[2019-02-12 07:13] LABS: ALT 28 U/L (9-52); AST 23 U/L (14-36); Alkaline Phosphatase 54 U/L (38-126)
[2019-02-12 07:14] LABS: Glucose,Whole Blood 67 mg/dL (75-99)
[2019-02-12 07:32] LABS: Glucose,Whole Blood 97 mg/dL (75-99)
[2019-02-12] MEDS: INSULIN ASPART (NovoLOG) 100 UNIT/ML VIAL SQ SCH ×4 (07:34→20:31)
[2019-02-12] MEDS: FUROSEMIDE 40 MG TAB PO SCH (07:49)
[2019-02-12] MEDS: predniSONE 20 MG TAB PO SCH (07:49)
[2019-02-12] MEDS: PANTOPRAZOLE 40 MG TABLET PO SCH (07:49)
[2019-02-12] MEDS: FIDAXOMICIN 200 MG TABLET PO SCH ×2 (07:50→20:36)
[2019-02-12] MEDS: METHIMAZOLE 5 MG TAB PO SCH (07:50)
[2019-02-12] MEDS: DILTIAZEM CD 240 MG CAP.ER.24H PO SCH (07:50)
[2019-02-12] MEDS: ENOXAPARIN 40 MG/0.4 ML SYRINGE SQ SCH ×2 (07:50→11:07)
[2019-02-12] MEDS: FLUTICASONE 110 MCG INHALER INHALATION SCH ×2 (08:17→19:40)
--- NOTE | 2019-02-12 10:22 | P.PN ---
Subjective Progress Note Date: 02/12/19 This is a 63-year-old female patient who presented with abdominal pain. Patient was recently admitted for acute tracheobronchitis and COPD exacerbation. Patient reports that over the weekend she had increased nausea and diarrhea. Patient reports that throughout Sunday abdominal pain and diarrhea became increasingly worse and she presented to the ER for further evaluation. Patient was recently discharged home on Ceftin and prednisone taper. Patient also reports fever and chills. She has a known past medical history COPD with oxygen dependence, CAD, heart failure, GERD, hypertension, myocardial infarction, mitral valve prolapse, osteoporosis, paroxysmal atrial fibrillation, IBS and C. diff in 2015. Stool for C. diff positive. CT of abdomen and pelvis completed showing mild ascites fluid that is change compared to old exam. Mild wall thickening of the sigmoid colon consistent with mild colitis. This appears improved compared to old computed tomography scan there is increased wall th ickening of the cecum consistent with colitis this change compared to old exam. Chest x-ray completed showing no active cardiopulmonary disease. No change. EKG completed showing sinus rhythm with occasional premature ventricular complexes. On 02/03/2019 patient is alert and oriented 3. At this time patient is still complaining of abdominal pain. Patient reports she had 4 loose stools tonight. Patient denies chest pain or shortness of breath. Patient denies nausea but no emesis. She denies any urinary burning or frequency. On 02/04/2019 patient is alert and oriented 3. Patient does state improvement with abdominal pain and nausea. Patient has been able to tolerate minimum diet. Infectious disease is following. Patient remains on oral vancomycin. Patient suddenly elevated 100.3. At this time patient denies any chest pain or shortness breath. Patient still having abdominal pain but is improved. Patient denies any nausea vomiting or diarrhea. Patient denies any urinary burning or frequency On 02/05/2019 patient is alert and oriented 3. Patient reports that after she ate yesterday she did have increased abdominal pain with diarrhea. At this time abdominal pain has slightly improved. Patient states she had possibly 3 loose stools throughout night. Patient remains on oral vancomycin and ID is following. Patient did have low-grade temp 99.7. Patient denies any chest pain or shortness of breath. Patient denies any emesis. Patient does have occasional nausea. Patient denies any urinary burning or frequency. On 02/06/2019 patient is alert and oriented 3. Patient is having improved diet. Patient reports she is still having occasional diarrhea after eating. Patient also complaining about increased weight gain and edema. Fluids will be DC'd due to increase oral intake. Will order chest x-ray. Patient denies any chest pain. Patient does complain of occasional shortness breath with exertion. Patient denies nausea or vomiting. Patient denies any urinary burning or frequency. Question added per infectious disease for symptom control. On 02/07/2019 patient is alert and oriented 3. Patient received 1 dose of IV Lasix yesterday. Patient still complaining of increased edema. Patient also his reports that he still having abdominal pain after eating. Patient has been afebrile now for 48 hours. Patient remains on oral Flagyl and Questran. Infectious disease is following. At this time patient is complaining of shortness breath with activity. Patient denies nausea or vomiting. Patient is complaining of still occasional diarrhea. Patient denies any urinary burning or frequency. On 02/08/2019 patient was seen and examined on the medical floor she is alert and oriented 3 she is complaining of right lower extremity swelling, she is still complaining of diarrhea, and complaining of shortness of breath with activity, otherwise she denies any complaints there is no fever or chills no headache or dizziness no chest pain no cough no nausea or vomiting no abdominal pain and no urinary symptoms. Patient has been refusing to take subcu heparin. On 02/09/2019 patient was seen and examined on the medical floor she is complaining of abdominal pain and nausea she had 2 bouts of diarrhea last night she is also complaining of bilateral lower extremity swelling she is complaining of shortness of breath otherwise she denies any complaints there is no fever or chills no headache or dizziness no chest pain no vomiting no urinary symptoms. On 02/10/2019 patient reports she had 2 bouts of diarrhea last night and still complaining of abdominal pain with nausea. Patient also complaining of shortness breath with activity pulmonary services are following. Patient maintained on Lasix. Patient denies any chest pain. Patient denies any urinary burning or frequency On 02/11/2019 patient is alert and oriented 3. Patient is still complaining of diarrhea. White blood cell did increase. Discussed case with Dr. Valdez patient has been switched to Dificid. We'll continue to monitor symptoms. At this time patient denies chest pain. Patient is having some shortness of breath. Patient denies nausea vomiting. Patient is still having diarrhea. Patient denies any urinary burning or frequency. On 02/12/2019 patient is alert and oriented x 3. patient reports two episodes of diarrhea this Am. patient has been switched to Dificid per ID. Patient reports that she is still having Shortness of breath with activity. pulmonary services are following. patient denies chest pain. Patient denies any urinary burning or frequency. Objective - Vital Signs Vital signs: Vital Signs Temp 99.7 F H 02/12/19 07:00 Pulse 100 02/12/19 08:27 Resp 18 02/12/19 07:00 BP 143/79 02/12/19 07:00 Pulse Ox 94 L 02/12/19 07:00 Intake & Output 02/11/19 02/12/19 02/12/19 18:59 06:59 18:59 Intake Total 400 480 Balance 400 480 Weight 61.3 kg Intake: Oral 400 480 Other: Voiding Method Toilet Toilet Toilet # Voids 2 - Exam Head normocephalic Neck supple Lungs clear to auscultation bilaterally no wheezing or crackles Heart regular rate and rhythm S1-S2, no rub or gallop Abdomen is soft tender to palpation Extremities +1 lower extremity edema Neuro alert and orientated to 3 - Labs CBC & Chem 7: 02/12/19 06:43 02/12/19 06:43 Labs: Abnormal Lab Results - Last 24 Hours (Table) 02/11/19 02/11/19 02/11/19 Range/Units 11:37 17:00 20:08 WBC (3.8-10.6) k/uL RBC (3.80-5.40) m/uL Hgb (11.4-16.0) gm/dL Neutrophils # (1.3-7.7) k/uL Sodium (137-145) mmol/L Chloride (98-107) mmol/L Carbon Dioxide (22-30) mmol/L Creatinine (0.52-1.04) mg/dL Glucose (74-99) mg/dL POC Glucose (mg/dL) 100 H 148 H 104 H (75-99) mg/dL Total Protein (6.3-8.2) g/dL Albumin (3.5-5.0) g/dL 02/12/19 02/12/19 02/12/19 Range/Units 06:43 06:43 07:00 WBC 11.0 H (3.8-10.6) k/uL RBC 3.67 L (3.80-5.40) m/uL Hgb 10.8 L (11.4-16.0) gm/dL Neutrophils # 8.5 H (1.3-7.7) k/uL Sodium 134 L (137-145) mmol/L Chloride 92 L (98-107) mmol/L Carbon Dioxide 39 H (22-30) mmol/L Creatinine 0.33 L (0.52-1.04) mg/dL Glucose 65 L (74-99) mg/dL POC Glucose (mg/dL) 67 L (75-99) mg/dL Total Protein 5.4 L (6.3-8.2) g/dL Albumin 2.7 L (3.5-5.0) g/dL Assessment and Plan Assessment: 1. Abdominal pain related to C. diff colitis with leukocytosis. CT of abdomen and pelvis completed showing mild ascites fluid that his change compared to old exam. Mild wall thickening of the sigmoid colon consistent with mild colitis. This appears improved compared to old computed tomography scan. Increased wall thickening of the cecum, consistent with colitis that his change compared to old exam patient started on oral vancomycin. Stool cultures negative. Patient positive for C. diff. infectious disease following. Patient has been switched to dificid per infectious disease. 2. Chronic hypoxic respiratory failure maintained on home O2 3. Recent exacerbation of COPD and tracheobronchitis. Patient was discharged on antibiotics and prednisone taper. Patient recently underwent bronchoscopy. 4. History of paroxysmal atrial fibrillation. Patient refused anticoagulation during his hospitalization patient maintained on Cardizem. Patient reports history of bleeding with epitaxis and hematomas. Cardizem decreased per patient request due to patient feeling its contributing to lower extremity swelling 5. History of congestive heart failure 6. History of coronary artery disease 7. History of chronic back pain 8. Hyperthyroidism. Patient maintained on Tapazole 9. Hypokalemia. Potassium 3.3. Orders replace per protocol. We'll continue to monitor 10. Increase lower extremity edema. Fluids discontinued patient's oral intake has improved. venous doppler completed showing no evidence of DVT in right lower extremity. Chest x-ray completed showing increasing right pleural effusion compared to last exam. No overt heart failure. Patient remains on lasix 40mg daily . 2-D echo completed on 01/22/2019 showing EF between 55 and 60%. BNP 251 11. Right-sided pleural effusion. Pulmonary services are following. Continue gentle diuresis maintained on Lasix 40 daily DVT prophylaxis lovenox. GI prophylaxis Protonix patient refusing placement at ECF or inpatient rehab I performed an examination of the patient and discussed their management with the Nurse Practitioner. I have reviewed the Nurse Practitioner's notes and agree with the documented findings and plan of care
[2019-02-12] MEDS: CHOLESTYRAMINE (WITH SUGAR) 4 GM PACKET PO SCH ×2 (11:07→20:36)
--- NOTE | 2019-02-12 12:32 | P.PN ---
Subjective Progress Note Date: 02/12/19 Principal diagnosis: Congestive heart failure and acute on chronic diastolic heart failure likely related to fluid overload, C. difficile colitis, chronic hypoxic respiratory failure on home oxygen, severe COPD emphysema, coronary artery disease, chronic back pain, hyperthyroidism, electrolyte imbalance with hypokalemia 02/12/2019, patient seen eval reexamined during the rounds doing well denies any chest pain or shortness of breath still have enlarged idea and shortness of b reath on exertion 02/11/2019, patient is overall doing better swelling in the lower extremity has improved still have ongoing diarrhea some shortness of breath is an present but no severe overwhelming wheezing is present patient able to ambulate 02/10/2019, patient seen eval reexamined during the rounds her shortness of breath is improved now but swelling in lower extremity remains unchanged denies any cough or sputum production labs are reviewed there is stable, still having intermittent diarrhea some element of abdominal pain is present which is improved now 02/09/2019, patient seen and evaluated examined during the rounds shortness of breath has improved still left cough congestion, swelling in the lower extremities still present but slightly improved though, patient has high CO2 li miryam related to chronic respiratory failure Lasix has been switched to by mouth 02/08/2019, patient seen eval examined during the rounds her shortness of breath slightly better still have swelling in the lower extremity which is diffuse even bilateral I have reviewed the ultrasound of the chest there is about 4 cm fluid present on the right side, which indicated small fluid risk of complication higher on left side no effusion has been seen will continue Lasix and monitored closely This is a 63-year-old female with baseline history of severe COPD with chronic hypoxic and hypercapnic respiratory failure admitted into the hospital with abdominal pain described as 10 out of 10 in severity sharp diffuse abdominal pain been getting worse over the past 5 days associated with nausea and couple episodes of vomiting nonbloody nonbilious. With progressively worsening diarrhea last night she was having frequent bowel movements all night patient has not looked at her diarrhea to verify whether there is blood or melena. Patient has history of C. diff 1 year ago. She was recently hospitalized for acute COPD exacerbation was given cefepime while inpatient due to history of Pseudomonas and was discharged on Ceftin 10 days ago. Patient reports chills and subjective fevers. CT imaging in the ED for the abdomen suggested colitis patient clinical picture fits acute C. diff colitis for which she is treated for during this admission. Patient met sepsis criteria leukocytosis and tachycardia was given IV fluids and started on oral vancomycin. Patient still taking tapering doses of steroids. Which could be contributing into her leukocytosis. Patient has intermittent shortness of breath I repeat chest x-ray was done now showing a small to moderate right-sided pleural effusion increase compared to x-ray done at the time admission, patient has been rehydrated with the fluids also has +1-2 ankle edema as well, patient has received 2 doses of Lasix yesterday and today Objective - Vital Signs Vital signs: Vital Signs Temp 99.7 F H 02/12/19 07:00 Pulse 96 02/12/19 11:48 Resp 18 02/12/19 07:00 BP 143/79 02/12/19 07:00 Pulse Ox 94 L 02/12/19 07:00 Intake & Output 02/11/19 02/12/19 02/12/19 18:59 06:59 18:59 Intake Total 400 480 Balance 400 480 Weight 61.3 kg 59.3 kg Intake: Oral 400 480 Other: Voiding Method Toilet Toilet Toilet # Voids 2 - Exam - Constitutional General appearance: cooperative, disheveled, mild distress - EENT Eyes: anicteric sclerae, EOMI, PERRLA, poor dentition, normal appearance ENT: normal oropharynx Ears: bilateral: normal - Neck Neck: normal ROM Carotids: bilateral: upstroke normal, bruit absent Thyroid: bilateral: normal size - Respiratory Respiratory: right: dullness (On percussion), bilateral: rales (At the bases), rhonchi (Coarse bilateral), negative: CTA - Cardiovascular Rhythm: regular Heart sounds: normal: S1, S2 - Gastrointestinal General gastrointestinal: decreased bowel sounds, soft - Musculoskeletal Musculoskeletal: gait normal, generalized weakness, strength equal bilaterally - Psychiatric Psychiatric: A&O x's 3, appropriate affect, intact judgment & insight +1 edema and lower extremity equal bilateral - Labs CBC & Chem 7: 02/12/19 06:43 02/12/19 06:43 Labs: Abnormal Lab Results - Last 24 Hours (Table) 02/11/19 02/11/19 02/12/19 Range/Units 17:00 20:08 06:43 WBC 11.0 H (3.8-10.6) k/uL RBC 3.67 L (3.80-5.40) m/uL Hgb 10.8 L (11.4-16.0) gm/dL Neutrophils # 8.5 H (1.3-7.7) k/uL Sodium (137-145) mmol/L Chloride (98-107) mmol/L Carbon Dioxide (22-30) mmol/L Creatinine (0.52-1.04) mg/dL Glucose (74-99) mg/dL POC Glucose (mg/dL) 148 H 104 H (75-99) mg/dL Total Protein (6.3-8.2) g/dL Albumin (3.5-5.0) g/dL 02/12/19 02/12/19 Range/Units 06:43 07:00 WBC (3.8-10.6) k/uL RBC (3.80-5.40) m/uL Hgb (11.4-16.0) gm/dL Neutrophils # (1.3-7.7) k/uL Sodium 134 L (137-145) mmol/L Chloride 92 L (98-107) mmol/L Carbon Dioxide 39 H (22-30) mmol/L Creatinine 0.33 L (0.52-1.04) mg/dL Glucose 65 L (74-99) mg/dL POC Glucose (mg/dL) 67 L (75-99) mg/dL Total Protein 5.4 L (6.3-8.2) g/dL Albumin 2.7 L (3.5-5.0) g/dL Assessment and Plan Assessment: Right-sided pleural effusion new onset suspect related to fluid overload on ultrasound of the small amount Hypercapnic hypoxic chronic respiratory failure Advanced COPD C. difficile colitis and abdominal pain related to that Chronic atrial fibrillation Congestive heart failure likely diastolic heart failure related chronic atrial fibrillation and fluid overload Chronic back pain Lower extremity edema Plan: Will do a follow-up chest x-ray gentle diuresis will keep patient on Lasix every day 40 mg daily monitor CO2 closely Reviewed the ultrasound of the chest small pleural effusion noted will observe Continue taper the steroids for DC Increase activity as tolerated Continue supplemental oxygen Further recommendations pending plan of care as per clinical response of the patient Time with Patient: Greater than 30
[2019-02-12 12:55] LABS: Glucose,Whole Blood 113 mg/dL (75-99)
--- NOTE | 2019-02-12 14:35 | PN ---
PROGRESS NOTE DATE OF SERVICE: 02/12/2019 REASON FOR FOLLOWUP VISIT: C difficile colitis. INTERVAL HISTORY: The patient is currently afebrile. The patient denies having any chest pain or any cough. Did mention did not have any diarrhea last night; however, did have 3 loose stools since the morning. No abdominal pain. No chest pain, shortness of breath or cough. PHYSICAL EXAMINATION: Blood pressure 143/79 with a pulse of 104, temperature 98.7.is 94% weight 2 L nasal cannula. General description is middle-aged female, up in the room in no distress. RESPIRATORY SYSTEML Unlabored breathing, clear to auscultation anteriorly. HEART: S1, S2. Regular rate and rhythm. ABDOMEN: Soft, no tenderness. LABS: White count down to 11,000 with a BUN of 10, creatinine 0.33. DIAGNOSTIC IMPRESSION AND PLAN: Patient with recurrent C difficile colitis, did not have very good response to the oral vancomycin as the patient had been switched over to deficit yesterday. Patient seemed to have some clinical improvement, her white count has improved as well. Plan will be for Deficit 200 mg twice a day for 10 days. If this fails, next will be stool transplant. The patient has been instructed to increase her probiotic and yogurt intake. MMODL / IJN: [id number] /
[2019-02-12 16:49] LABS: Glucose,Whole Blood 106 mg/dL (75-99)
[2019-02-12 20:19] LABS: Glucose,Whole Blood 117 mg/dL (75-99)
[2019-02-12] MEDS: MONTELUKAST 10 MG TAB PO SCH (20:37)
[2019-02-12] MEDS: PRAMIPEXOLE 0.5 MG TAB PO SCH (20:37)
[2019-02-12] MEDS: MELATONIN 5 MG TABLET PO SCH (20:37)
[2019-02-12] MEDS: ONDANSETRON 4 MG/2 ML VIAL IVP PRN (20:49)
[2019-02-13] MEDS: IPRATROPIUM-ALBUTEROL 3 ML NEB INHALATION SCH ×7 (00:01→23:12)
[2019-02-13] MEDS: HYDROmorphone 0.5 MG/0.5 ML SYRINGE IVP PRN ×7 (00:22→23:26)
[2019-02-13] MEDS: ONDANSETRON 4 MG/2 ML VIAL IVP PRN ×2 (04:28→21:30)
[2019-02-13] MEDS: HYDROcodone/APAP 10-325MG 1 EACH TAB PO PRN ×3 (06:27→18:01)
[2019-02-13 06:58] LABS: Glucose,Whole Blood 75 mg/dL (75-99)
[2019-02-13] MEDS: INSULIN ASPART (NovoLOG) 100 UNIT/ML VIAL SQ SCH ×4 (07:04→21:26)
[2019-02-13 07:35] LABS: Basophils % (A) 0 %; Eosinophils # (A) 0.1 k/uL (0-0.7); Eosinophils % (A) 1 %; HCT 34.9 % (34.0-46.0); HGB 10.8 gm/dL (11.4-16.0); Hypochromasia Slight; Lymphocytes # (A) 1.2 k/uL (1.0-4.8); Lymphocytes % (A) 9 %; MCHC 30.9 g/dL (31.0-37.0); MCV 93.6 fL (80.0-100.0); Mean Platelet Volume 6.9; Monocytes % (A) 8 %; Neutrophils # (A) 10.3 k/uL (1.3-7.7); Neutrophils % (A) 80 %; Platelet Count 424 k/uL (150-450); RBC 3.73 m/uL (3.80-5.40); RDW 14.3 % (11.5-15.5); WBC 12.9 k/uL (3.8-10.6)
[2019-02-13] MEDS: FLUTICASONE 110 MCG INHALER INHALATION SCH ×2 (07:38→19:42)
[2019-02-13 08:00] LABS: ALT 30 U/L (9-52); AST 20 U/L (14-36); African American GFR (CKD) >90 (>60 ml/min/1.73 sqM); Albumin 2.8 g/dL (3.5-5.0); Alkaline Phosphatase 67 U/L (38-126); Anion Gap 8 mmol/L; Blood Urea Nitrogen 11 mg/dL (7-17); Calcium 8.5 mg/dL (8.4-10.2); Carbon Dioxide 38 mmol/L (22-30); Chloride 89 mmol/L (98-107); Glucose 67 mg/dL (74-99); Potassium 4.4 mmol/L (3.5-5.1); Sodium 135 mmol/L (137-145); Total Bilirubin 0.3 mg/dL (0.2-1.3); Total Protein 5.4 g/dL (6.3-8.2)
[2019-02-13] MEDS: ENOXAPARIN 40 MG/0.4 ML SYRINGE SQ SCH (08:48)
[2019-02-13] MEDS: DILTIAZEM CD 240 MG CAP.ER.24H PO SCH (08:49)
[2019-02-13] MEDS: METHIMAZOLE 5 MG TAB PO SCH (08:49)
[2019-02-13] MEDS: FUROSEMIDE 40 MG TAB PO SCH (08:49)
[2019-02-13] MEDS: predniSONE 20 MG TAB PO SCH (08:49)
[2019-02-13] MEDS: PANTOPRAZOLE 40 MG TABLET PO SCH (08:49)
[2019-02-13] MEDS: FIDAXOMICIN 200 MG TABLET PO SCH ×2 (08:49→21:27)
[2019-02-13] MEDS: CHOLESTYRAMINE (WITH SUGAR) 4 GM PACKET PO SCH ×2 (08:50→21:27)
--- NOTE | 2019-02-13 09:59 | P.PN ---
Subjective Progress Note Date: 02/13/19 This is a 63-year-old female patient who presented with abdominal pain. Patient was recently admitted for acute tracheobronchitis and COPD exacerbation. Patient reports that over the weekend she had increased nausea and diarrhea. Patient reports that throughout Sunday abdominal pain and diarrhea became increasingly worse and she presented to the ER for further evaluation. Patient was recently discharged home on Ceftin and prednisone taper. Patient also reports fever and chills. She has a known past medical history COPD with oxygen dependence, CAD, heart failure, GERD, hypertension, myocardial infarction, mitral valve prolapse, osteoporosis, paroxysmal atrial fibrillation, IBS and C. diff in 2015. Stool for C. diff positive. CT of abdomen and pelvis completed showing mild ascites fluid that is change compared to old exam. Mild wall thickening of the sigmoid colon consistent with mild colitis. This appears improved compared to old computed tomography scan there is increased wall th ickening of the cecum consistent with colitis this change compared to old exam. Chest x-ray completed showing no active cardiopulmonary disease. No change. EKG completed showing sinus rhythm with occasional premature ventricular complexes. On 02/03/2019 patient is alert and oriented 3. At this time patient is still complaining of abdominal pain. Patient reports she had 4 loose stools tonight. Patient denies chest pain or shortness of breath. Patient denies nausea but no emesis. She denies any urinary burning or frequency. On 02/04/2019 patient is alert and oriented 3. Patient does state improvement with abdominal pain and nausea. Patient has been able to tolerate minimum diet. Infectious disease is following. Patient remains on oral vancomycin. Patient suddenly elevated 100.3. At this time patient denies any chest pain or shortness breath. Patient still having abdominal pain but is improved. Patient denies any nausea vomiting or diarrhea. Patient denies any urinary burning or frequency On 02/05/2019 patient is alert and oriented 3. Patient reports that after she ate yesterday she did have increased abdominal pain with diarrhea. At this time abdominal pain has slightly improved. Patient states she had possibly 3 loose stools throughout night. Patient remains on oral vancomycin and ID is following. Patient did have low-grade temp 99.7. Patient denies any chest pain or shortness of breath. Patient denies any emesis. Patient does have occasional nausea. Patient denies any urinary burning or frequency. On 02/06/2019 patient is alert and oriented 3. Patient is having improved diet. Patient reports she is still having occasional diarrhea after eating. Patient also complaining about increased weight gain and edema. Fluids will be DC'd due to increase oral intake. Will order chest x-ray. Patient denies any chest pain. Patient does complain of occasional shortness breath with exertion. Patient denies nausea or vomiting. Patient denies any urinary burning or frequency. Question added per infectious disease for symptom control. On 02/07/2019 patient is alert and oriented 3. Patient received 1 dose of IV Lasix yesterday. Patient still complaining of increased edema. Patient also his reports that he still having abdominal pain after eating. Patient has been afebrile now for 48 hours. Patient remains on oral Flagyl and Questran. Infectious disease is following. At this time patient is complaining of shortness breath with activity. Patient denies nausea or vomiting. Patient is complaining of still occasional diarrhea. Patient denies any urinary burning or frequency. On 02/08/2019 patient was seen and examined on the medical floor she is alert and oriented 3 she is complaining of right lower extremity swelling, she is still complaining of diarrhea, and complaining of shortness of breath with activity, otherwise she denies any complaints there is no fever or chills no headache or dizziness no chest pain no cough no nausea or vomiting no abdominal pain and no urinary symptoms. Patient has been refusing to take subcu heparin. On 02/09/2019 patient was seen and examined on the medical floor she is complaining of abdominal pain and nausea she had 2 bouts of diarrhea last night she is also complaining of bilateral lower extremity swelling she is complaining of shortness of breath otherwise she denies any complaints there is no fever or chills no headache or dizziness no chest pain no vomiting no urinary symptoms. On 02/10/2019 patient reports she had 2 bouts of diarrhea last night and still complaining of abdominal pain with nausea. Patient also complaining of shortness breath with activity pulmonary services are following. Patient maintained on Lasix. Patient denies any chest pain. Patient denies any urinary burning or frequency On 02/11/2019 patient is alert and oriented 3. Patient is still complaining of diarrhea. White blood cell did increase. Discussed case with Dr. Valdez patient has been switched to Dificid. We'll continue to monitor symptoms. At this time patient denies chest pain. Patient is having some shortness of breath. Patient denies nausea vomiting. Patient is still having diarrhea. Patient denies any urinary burning or frequency. On 02/12/2019 patient is alert and oriented x 3. patient reports two episodes of diarrhea this Am. patient has been switched to Dificid per ID. Patient reports that she is still having Shortness of breath with activity. pulmonary services are following. patient denies chest pain. Patient denies any urinary burning or frequency. On 02/13/2018 patient is alert and oriented 3. Patient remains on Dificid per ID. Patient reports some abdominal discomfort. Patient reports she does not feel ready to be discharged home. White blood cell increased to 12.4. Patient denies any chest pain. Patient is still complaining of shortness of breath with activity. Pulmonary and infectious disease services are following. Objective - Vital Signs Vital signs: Vital Signs Temp 99.3 F 02/13/19 07:00 Pulse 80 02/13/19 07:30 Resp 16 02/13/19 07:00 BP 118/75 02/13/19 07:00 Pulse Ox 97 02/13/19 07:00 Intake & Output 02/12/19 02/13/19 02/13/19 18:59 06:59 18:59 Intake Total 702 240 100 Balance 702 240 100 Weight 59.3 kg 59.1 kg Intake: Oral 702 240 100 Other: Voiding Method Toilet Toilet # Voids 4 2 - Exam Head normocephalic Neck supple Lungs clear to auscultation bilaterally no wheezing or crackles Heart regular rate and rhythm S1-S2, no rub or gallop Abdomen is soft tender to palpation Extremities +1 lower extremity edema Neuro alert and orientated to 3 - Labs CBC & Chem 7: 02/13/19 06:43 02/13/19 06:43 Labs: Abnormal Lab Results - Last 24 Hours (Table) 02/12/19 02/12/19 02/12/19 Range/Units 11:33 16:37 20:16 WBC (3.8-10.6) k/uL RBC (3.80-5.40) m/uL Hgb (11.4-16.0) gm/dL MCHC (31.0-37.0) g/dL Neutrophils # (1.3-7.7) k/uL Sodium (137-145) mmol/L Chloride (98-107) mmol/L Carbon Dioxide (22-30) mmol/L Creatinine (0.52-1.04) mg/dL Glucose (74-99) mg/dL POC Glucose (mg/dL) 113 H 106 H 117 H (75-99) mg/dL Total Protein (6.3-8.2) g/dL Albumin (3.5-5.0) g/dL 02/13/19 02/13/19 Range/Units 06:43 06:43 WBC 12.9 H (3.8-10.6) k/uL RBC 3.73 L (3.80-5.40) m/uL Hgb 10.8 L (11.4-16.0) gm/dL MCHC 30.9 L (31.0-37.0) g/dL Neutrophils # 10.3 H (1.3-7.7) k/uL Sodium 135 L (137-145) mmol/L Chloride 89 L (98-107) mmol/L Carbon Dioxide 38 H (22-30) mmol/L Creatinine 0.41 L (0.52-1.04) mg/dL Glucose 67 L (74-99) mg/dL POC Glucose (mg/dL) (75-99) mg/dL Total Protein 5.4 L (6.3-8.2) g/dL Albumin 2.8 L (3.5-5.0) g/dL Assessment and Plan Assessment: 1. Abdominal pain related to C. diff colitis with leukocytosis. CT of abdomen and pelvis completed showing mild ascites fluid that his change compared to old exam. Mild wall thickening of the sigmoid colon consistent with mild colitis. This appears improved compared to old computed tomography scan. Increased wall thickening of the cecum, consistent with colitis that his change compared to old exam patient started on oral vancomycin. Stool cultures negative. Patient positive for C. diff. infectious disease following. Patient has been switched to dificid per infectious disease. 2. Chronic hypoxic respiratory failure maintained on home O2 3. Recent exacerbation of COPD and tracheobronchitis. Patient was discharged on antibiotics and prednisone taper. Patient recently underwent bronchoscopy. 4. History of paroxysmal atrial fibrillation. Patient refused anticoagulation during his hospitalization patient maintained on Cardizem. Patient reports history of bleeding with epitaxis and hematomas. Cardizem decreased per patient request due to patient feeling its contributing to lower extremity swelling 5. History of congestive heart failure 6. History of coronary artery disease 7. History of chronic back pain 8. Hyperthyroidism. Patient maintained on Tapazole 9. Hypokalemia. Potassium 3.3. Orders replace per protocol. We'll continue to monitor 10. Increase lower extremity edema. Fluids discontinued patient's oral intake has improved. venous doppler completed showing no evidence of DVT in right lower extremity. Chest x-ray completed showing increasing right pleural effusion compared to last exam. No overt heart failure. Patient remains on lasix 40mg daily . 2-D echo completed on 01/22/2019 showing EF between 55 and 60%. BNP 251 11. Right-sided pleural effusion. Pulmonary services are following. Continue gentle diuresis maintained on Lasix 40 daily DVT prophylaxis lovenox. GI prophylaxis Protonix patient refusing placement at ECF or inpatient rehab Anticipate discharge in the next 24-48 hours I performed an examination of the patient and discussed their management with the Nurse Practitioner. I have reviewed the Nurse Practitioner's notes and agree with the documented findings and plan of care
[2019-02-13] MEDS: ALPRAZolam 0.25 MG TAB PO PRN (10:56)
--- NOTE | 2019-02-13 13:30 | P.PN ---
Subjective Progress Note Date: 02/13/19 Principal diagnosis: Congestive heart failure and acute on chronic diastolic heart failure likely related to fluid overload, C. difficile colitis, chronic hypoxic respiratory failure on home oxygen, severe COPD emphysema, coronary artery disease, chronic back pain, hyperthyroidism, electrolyte imbalance with hypokalemia 02/13/2019, patient seen and evaluated examined during the rounds shortness of breath and cough is stable swelling in the lower extremity remains stable her d iarrhea is almost gone now no significant diarrhea And today she is complaining appetite problem 02/12/2019, patient seen eval reexamined during the rounds doing well denies any chest pain or shortness of breath still have enlarged idea and shortness of breath on exertion 02/11/2019, patient is overall doing better swelling in the lower extremity has improved still have ongoing diarrhea some shortness of breath is an present but no severe overwhelming wheezing is present patient able to ambulate 02/10/2019, patient seen eval reexamined during the rounds her shortness of breath is improved now but swelling in lower extremity remains unchanged denies any cough or sputum production labs are reviewed there is stable, still having intermittent diarrhea some element of abdominal pain is present which is improved now 02/09/2019, patient seen and evaluated examined during the rounds shortness of breath has improved still left cough congestion, swelling in the lower extremities still present but slightly improved though, patient has high CO2 likely related to chronic respiratory failure Lasix has been switched to by mouth 02/08/2019, patient seen eval examined during the rounds her shortness of breath slightly better still have swelling in the lower extremity which is diffuse even bilateral I have reviewed the ultrasound of the chest there is about 4 cm fluid present on the right side, which indicated small fluid risk of complication higher on left side no effusion has been seen will continue Lasix and monitored closely This is a 63-year-old female with baseline history of severe COPD with chronic hypoxic and hypercapnic respiratory failure admitted into the hospital with abdominal pain described as 10 out of 10 in severity sharp diffuse abdominal pain been getting worse over the past 5 days associated with nausea and couple episodes of vomiting nonbloody nonbilious. With progressively worsening diarrhea last night she was having frequent bowel movements all night patient has not looked at her diarrhea to verify whether there is blood or melena. Patient has history of C. diff 1 year ago. She was recently hospitalized for acute COPD exacerbation was given cefepime while inpatient due to history of Pseudomonas and was discharged on Ceftin 10 days ago. Patient reports chills and subjective fevers. CT imaging in the ED for the abdomen suggested colitis patient clinical picture fits acute C. diff colitis for which she is treated for during this admission. Patient met sepsis criteria leukocytosis and tachycardia was given IV fluids and started on oral vancomycin. Patient still taking tapering doses of steroids. Which could be contributing into her leukocytosis. Patient has intermittent shortness of breath I repeat chest x-ray was done now showing a small to moderate right-sided pleural effusion increase compared to x-ray done at the time admission, patient has been rehydrated with the fluids also has +1-2 ankle edema as well, patient has receiv ed 2 doses of Lasix yesterday and today Objective - Vital Signs Vital signs: Vital Signs Temp 99.3 F 02/13/19 07:00 Pulse 88 02/13/19 11:21 Resp 16 02/13/19 07:00 BP 118/75 02/13/19 07:00 Pulse Ox 97 02/13/19 07:00 Intake & Output 02/12/19 02/13/19 02/13/19 18:59 06:59 18:59 Intake Total 702 240 100 Balance 702 240 100 Weight 59.3 kg 59.1 kg Intake: Oral 702 240 100 Other: Voiding Method Toilet Toilet # Voids 4 2 - Exam - Constitutional General appearance: cooperative, disheveled, mild distress - EENT Eyes: anicteric sclerae, EOMI, PERRLA, poor dentition, normal appearance ENT: normal oropharynx Ears: bilateral: normal - Neck Neck: normal ROM Carotids: bilateral: upstroke normal, bruit absent Thyroid: bilateral: normal size - Respiratory Respiratory: right: dullness (On percussion), bilateral: rales (At the bases), rhonchi (Coarse bilateral), negative: CTA - Cardiovascular Rhythm: regular Heart sounds: normal: S1, S2 - Gastrointestinal General gastrointestinal: decreased bowel sounds, soft - Musculoskeletal Musculoskeletal: gait normal, generalized weakness, strength equal bilaterally - Psychiatric Psychiatric: A&O x's 3, appropriate affect, intact judgment & insight +1 edema and lower extremity equal bilateral - Labs CBC & Chem 7: 02/13/19 06:43 02/13/19 06:43 Labs: Abnormal Lab Results - Last 24 Hours (Table) 02/12/19 02/12/19 02/13/19 Range/Units 16:37 20:16 06:43 WBC 12.9 H (3.8-10.6) k/uL RBC 3.73 L (3.80-5.40) m/uL Hgb 10.8 L (11.4-16.0) gm/dL MCHC 30.9 L (31.0-37.0) g/dL Neutrophils # 10.3 H (1.3-7.7) k/uL Sodium (137-145) mmol/L Chloride (98-107) mmol/L Carbon Dioxide (22-30) mmol/L Creatinine (0.52-1.04) mg/dL Glucose (74-99) mg/dL POC Glucose (mg/dL) 106 H 117 H (75-99) mg/dL Total Protein (6.3-8.2) g/dL Albumin (3.5-5.0) g/dL 02/13/19 Range/Units 06:43 WBC (3.8-10.6) k/uL RBC (3.80-5.40) m/uL Hgb (11.4-16.0) gm/dL MCHC (31.0-37.0) g/dL Neutrophils # (1.3-7.7) k/uL Sodium 135 L (137-145) mmol/L Chloride 89 L (98-107) mmol/L Carbon Dioxide 38 H (22-30) mmol/L Creatinine 0.41 L (0.52-1.04) mg/dL Glucose 67 L (74-99) mg/dL POC Glucose (mg/dL) (75-99) mg/dL Total Protein 5.4 L (6.3-8.2) g/dL Albumin 2.8 L (3.5-5.0) g/dL Assessment and Plan Assessment: Right-sided pleural effusion new onset suspect related to fluid overload on ultrasound of the small amount Hypercapnic hypoxic chronic respiratory failure Advanced COPD C. difficile colitis and abdominal pain related to that Chronic atrial fibrillation Congestive heart failure likely diastolic heart failure related chronic atrial fibrillation and fluid overload Chronic back pain Lower extremity edema Plan: Will do a follow-up chest x-ray gentle diuresis will keep patient on Lasix every day 40 mg daily monitor CO2 closely Reviewed the ultrasound of the chest small pleural effusion noted will observe Continue taper the steroids for DC Increase activity as tolerated Continue supplemental oxygen Further recommendations pending plan of care as per clinical response of the patient Time with Patient: Greater than 30
[2019-02-13 16:45] LABS: Glucose,Whole Blood 118 mg/dL (75-99)
[2019-02-13] MEDS: MONTELUKAST 10 MG TAB PO SCH (20:06)
[2019-02-13] MEDS: MELATONIN 5 MG TABLET PO SCH (20:06)
[2019-02-13] MEDS: PRAMIPEXOLE 0.5 MG TAB PO SCH (21:27)
[2019-02-13 21:30] LABS: Glucose,Whole Blood 153 mg/dL (75-99)
[2019-02-14] MEDS: HYDROcodone/APAP 10-325MG 1 EACH TAB PO PRN ×3 (00:38→12:43)
[2019-02-14] MEDS: HYDROmorphone 0.5 MG/0.5 ML SYRINGE IVP PRN ×3 (02:15→10:30)
[2019-02-14] MEDS: IPRATROPIUM-ALBUTEROL 3 ML NEB INHALATION SCH ×4 (02:58→15:13)
[2019-02-14] MEDS: ALPRAZolam 0.25 MG TAB PO PRN ×2 (03:23→13:59)
[2019-02-14 07:07] LABS: Glucose,Whole Blood 73 mg/dL (75-99)
[2019-02-14] MEDS: INSULIN ASPART (NovoLOG) 100 UNIT/ML VIAL SQ SCH ×2 (07:11→12:36)
[2019-02-14] MEDS: FLUTICASONE 110 MCG INHALER INHALATION SCH ×2 (07:27→07:45)
[2019-02-14] MEDS: PANTOPRAZOLE 40 MG TABLET PO SCH (07:32)
[2019-02-14 08:49] LABS: Basophils # (A) 0.1 k/uL (0-0.2); Basophils % (A) 0 %; Eosinophils # (A) 0.2 k/uL (0-0.7); Eosinophils % (A) 1 %; HCT 36.7 % (34.0-46.0); HGB 11.3 gm/dL (11.4-16.0); Hypochromasia Moderate; Lymphocytes # (A) 1.5 k/uL (1.0-4.8); Lymphocytes % (A) 13 %; MCH 28.9 pg (25.0-35.0); MCHC 30.8 g/dL (31.0-37.0); MCV 93.8 fL (80.0-100.0); Mean Platelet Volume 7.7; Monocytes % (A) 8 %; Neutrophils # (A) 9.1 k/uL (1.3-7.7); Neutrophils % (A) 75 %; Platelet Count 467 k/uL (150-450); RBC 3.92 m/uL (3.80-5.40); RDW 14.5 % (11.5-15.5)
[2019-02-14 09:00] LABS: ALT 26 U/L (9-52); AST 23 U/L (14-36); African American GFR (CKD) >90 (>60 ml/min/1.73 sqM); Albumin 3.1 g/dL (3.5-5.0); Alkaline Phosphatase 64 U/L (38-126); Anion Gap 6 mmol/L; Blood Urea Nitrogen 9 mg/dL (7-17); Calcium 9.1 mg/dL (8.4-10.2); Carbon Dioxide 36 mmol/L (22-30); Chloride 93 mmol/L (98-107); Glucose 76 mg/dL (74-99); Potassium 4.7 mmol/L (3.5-5.1); Sodium 135 mmol/L (137-145); Total Bilirubin 0.3 mg/dL (0.2-1.3); Total Protein 5.9 g/dL (6.3-8.2)
[2019-02-14] MEDS: ONDANSETRON 4 MG/2 ML VIAL IVP PRN (09:25)
[2019-02-14] MEDS: FIDAXOMICIN 200 MG TABLET PO SCH (09:29)
[2019-02-14] MEDS: predniSONE 20 MG TAB PO SCH (09:30)
[2019-02-14] MEDS: DILTIAZEM CD 240 MG CAP.ER.24H PO SCH (09:30)
[2019-02-14] MEDS: ENOXAPARIN 40 MG/0.4 ML SYRINGE SQ SCH (09:30)
[2019-02-14] MEDS: METHIMAZOLE 5 MG TAB PO SCH (09:30)
[2019-02-14] MEDS: FUROSEMIDE 40 MG TAB PO SCH (09:30)
[2019-02-14] MEDS: CHOLESTYRAMINE (WITH SUGAR) 4 GM PACKET PO SCH (09:30)
[2019-02-14 12:00] LABS: Glucose,Whole Blood 124 mg/dL (75-99)
--- NOTE | 2019-02-14 13:09 | P.DS ---
Providers Date of admission: 02/02/19 19:06 Expected date of discharge: 02/14/19 Attending physician: Ning Lock Consults: 02/03/19 13:15 Consult Physician Routine Consulting Provider: Grisel Valdez Consult Reason/Comments: cdiff Do you want consulting provider notified?: Yes 02/07/19 14:10 Consult Physician Routine Consulting Provider: Jey Webster Consult Reason/Comments: Established patient advanced COPD increased pleural effusion Do you want consulting provider notified?: Yes 02/11/19 11:43 Consult Physician Routine Consulting Provider: Sharad Romano Consult Reason/Comments: Consider for inpatient rehab Do you want consulting provider notified?: Yes Primary care physician: Ning Lock [facility] Course: Discharge diagnosis 1. Abdominal pain related to C. diff colitis with leukocytosis. CT of abdomen and pelvis completed showing mild ascites fluid that his change compared to old exam. Mild wall thickening of the sigmoid colon consistent with mild colitis. This appears improved compared to old computed tomography scan. Increased wall thickening of the cecum, consistent with colitis that his change compared to old exam patient started on oral vancomycin. Stool cultures negative. Patient positive for C. diff. infectious disease following. Patient has been switched to dificid per infectious disease. Patient is having formed stools per nursing staff. Patient has been cleared for discharge from infectious disease. Patient will be DC'd on Dificid for 10 days 2. Chronic hypoxic respiratory failure maintained on home O2. Per pulmonary patient has been cleared for discharge 3. Recent exacerbation of COPD and tracheobronchitis. Patient was discharged on antibiotics and prednisone taper. Patient recently underwent bronchoscopy. 4. History of paroxysmal atrial fibrillation. Patient refused anticoagulation during his hospitalization patient maintained on Cardizem. Patient reports history of bleeding with epitaxis and hematomas. Cardizem decreased per patient request due to patient feeling its contributing to lower extremity swelling 5. History of congestive heart failure 6. History of coronary artery disease 7. History of chronic back pain 8. Hyperthyroidism. Patient maintained on Tapazole 9. Hypokalemia. Potassium 3.3. Orders replace per protocol. We'll continue to monitor 10. Increase lower extremity edema. Fluids discontinued patient's oral intake has improved. venous doppler completed showing no evidence of DVT in right lower extremity. Chest x-ray completed showing increasing right pleural effusion compared to last exam. No overt heart failure. Patient remains on lasix 40mg daily . 2-D echo completed on 01/22/2019 showing EF between 55 and 60%. BNP 251. Patient will be DC'd on Lasix 40 mg daily. 11. Right-sided pleural effusion. Pulmonary services are following. Continue gentle diuresis maintained on Lasix 40 daily. per Pulmonary patient has been cleared for discharge Hospital course This is a 63-year-old female patient who presented with abdominal pain. Patient was recently admitted for acute tracheobronchitis and COPD exacerbation. Patient reports that over the weekend she had increased nausea and diarrhea. Patient reports that throughout Sunday abdominal pain and diarrhea became increasingly worse and she presented to the ER for further evaluation. Patient was recently discharged home on Ceftin and prednisone taper. Patient also reports fever and chills. She has a known past medical history COPD with oxygen dependence, CAD, heart failure, GERD, hypertension, myocardial infarction, mitral valve prolapse, osteoporosis, paroxysmal atrial fibrillation, IBS and C. diff in 2015. Stool for C. diff positive. CT of abdomen and pelvis completed showing mild ascites fluid that is change compared to old exam. Mild wall thickening of the sigmoid colon consistent with mild colitis. This appears improved compared to old computed tomography scan there is increased wall thickening of the cecum consistent with colitis this change compared to old exam. Chest x-ray completed showing no active cardiopulmonary disease. No change. EKG completed showing sinus rhythm with occasional premature ventricular complexes. On 02/03/2019 patient is alert and oriented 3. At this time patient is still complaining of abdominal pain. Patient reports she had 4 loose stools tonight. Patient denies chest pain or shortness of breath. Patient denies nausea but no emesis. She denies any urinary burning or frequency. On 02/04/2019 patient is alert and oriented 3. Patient does state improvement with abdominal pain and nausea. Patient has been able to tolerate minimum diet. Infectious disease is following. Patient remains on oral vancomycin. Patient suddenly elevated 100.3. At this time patient denies any chest pain or shortness breath. Patient still having abdominal pain but is improved. Patient denies any nausea vomiting or diarrhea. Patient denies any urinary burning or frequency On 02/05/2019 patient is alert and oriented 3. Patient reports that after she ate yesterday she did have increased abdominal pain with diarrhea. At this time abdominal pain has slightly improved. Patient states she had possibly 3 loose stools throughout night. Patient remains on oral vancomycin and ID is following. Patient did have low-grade temp 99.7. Patient denies any chest pain or shortness of breath. Patient denies any emesis. Patient does have occasional nausea. Patient denies any urinary burning or frequency. On 02/06/2019 patient is alert and oriented 3. Patient is having improved diet. Patient reports she is still having occasional diarrhea after eating. Patient also complaining about increased weight gain and edema. Fluids will be DC'd due to increase oral intake. Will order chest x-ray. Patient denies any chest pain. Patient does complain of occasional shortness breath with exertion. Patient denies nausea or vomiting. Patient denies any urinary burning or frequency. Question added per infectious disease for symptom control. On 02/07/2019 patient is alert and oriented 3. Patient received 1 dose of IV Lasix yesterday. Patient still complaining of increased edema. Patient also his reports that he still having abdominal pain after eating. Patient has been afebrile now for 48 hours. Patient remains on oral Flagyl and Questran. Infectious disease is following. At this time patient is complaining of shortness breath with activity. Patient denies nausea or vomiting. Patient is complaining of still occasional diarrhea. Patient denies any urinary burning or frequency. On 02/08/2019 patient was seen and examined on the medical floor she is alert and oriented 3 she is complaining of right lower extremity swelling, she is still complaining of diarrhea, and complaining of shortness of breath with activity, otherwise she denies any complaints there is no fever or chills no hea dache or dizziness no chest pain no cough no nausea or vomiting no abdominal pain and no urinary symptoms. Patient has been refusing to take subcu heparin. On 02/09/2019 patient was seen and examined on the medical floor she is complaining of abdominal pain and nausea she had 2 bouts of diarrhea last night she is also complaining of bilateral lower extremity swelling she is complaining of shortness of breath otherwise she denies any complaints there is no fever or chills no headache or dizziness no chest pain no vomiting no urinary symptoms. On 02/10/2019 patient reports she had 2 bouts of diarrhea last night and still complaining of abdominal pain with nausea. Patient also complaining of shortness breath with activity pulmonary services are following. Patient maintained on Lasix. Patient denies any chest pain. Patient denies any urinary burning or frequency On 02/11/2019 patient is alert and oriented 3. Patient is still complaining of diarrhea. White blood cell did increase. Discussed case with Dr. Valdez patient has been switched to Dificid. We'll continue to monitor symptoms. At this time patient denies chest pain. Patient is having some shortness of breath. Patient denies nausea vomiting. Patient is still having diarrhea. Patient denies any urinary burning or frequency. On 02/12/2019 patient is alert and oriented x 3. patient reports two episodes of diarrhea this Am. patient has been switched to Dificid per ID. Patient reports that she is still having Shortness of breath with activity. pulmonary services are following. patient denies chest pain. Patient denies any urinary burning or frequency. On 02/13/2018 patient is alert and oriented 3. Patient remains on Dificid per ID. Patient reports some abdominal discomfort. Patient reports she does not feel ready to be discharged home. White blood cell increased to 12.4. Patient denies any chest pain. Patient is still complaining of shortness of breath with activity. Pulmonary and infectious disease services are following. On 02/14/2019 patient is alert and oriented 3. Per nursing staff patient has been having formed stools. Patient will be DC'd on Dificid for 10 days. Patient has been cleared for discharge from pulmonary services and infectious disease. Patient has returned to baseline with her pulmonary status. Patient does wear 2 L home O2 will be DC'd on Lasix 40 mg daily. Cardizem has been decreased during hospital stay per patient request heart rate has been controlled. I performed an examination of the patient and discussed their management with the Nurse Practitioner. I have reviewed the Nurse Practitioner's notes and agree with the documented findings and plan of care Patient Condition at Discharge: Stable Plan - Discharge Summary Discharge Rx Participant: Yes New Discharge Prescriptions: New Diltiazem Cd [Cardizem CD] 240 mg PO DAILY 30 Days #30 cap.er.24h Fidaxomicin [Dificid] 200 mg PO BID 10 Days #20 tablet Furosemide [Lasix] 40 mg PO DAILY 30 Days #30 tab Continue Pramipexole [Mirapex] 0.5 mg PO HS Cholecalciferol [Vitamin D3 (25 Mcg = 1000 Iu)] 2,000 unit PO HS Omeprazole 20 mg PO BID Beclomethasone Dipropionate [Qvar 80 mcg] 2 puff INHALATION RT-BID Montelukast [Singulair] 10 mg PO HS #30 tab Ipratropium-Albuterol Nebulize [Duoneb 0.5 mg-3 mg/3 ml Soln] 3 ml INHALATION RT-QID PRN PRN Reason: Shortness Of Breath HYDROcodone/APAP 10-325MG [Dunbar 10-325] 1 tab PO Q6H PRN #12 tab PRN Reason: Pain Melatonin 10 mg PO HS ALPRAZolam [Xanax] 0.25 mg PO Q8HR PRN 3 Days #9 tab PRN Reason: Anxiety Albuterol Inhaler [Ventolin Hfa Inhaler] 1 - 2 puff INHALATION RT-Q6H PRN PRN Reason: Shortness Of Breath Ascorbic Acid [Vitamin C] 1,000 mg PO DAILY Fluticasone Nasal [place] [Flonase Nasal [place]] 2 spray EA NOSTRIL DAILY PRN #1 bottle PRN Reason: Allergy Symptoms guaiFENesin [Mucinex] 1,200 mg PO Q12HR tablet.er predniSONE 60 mg PO DAILY tab Methimazole [Tapazole] 5 mg PO DAILY 30 Days #30 tab Discontinued Cefuroxime Axetil [Ceftin] 500 mg PO BID 10 Days #20 tab Diltiazem HCl [Cardizem CD] 360 mg PO HS Discharge Medication List Pramipexole [Mirapex] 0.5 mg PO HS 09/28/15 [History] Cholecalciferol [Vitamin D3 (25 Mcg = 1000 Iu)] 2,000 unit PO HS 02/02/16 [History] Omeprazole 20 mg PO BID 02/02/16 [History] Beclomethasone Dipropionate [Qvar 80 mcg] 2 puff INHALATION RT-BID 11/14/16 [ History] Montelukast [Singulair] 10 mg PO HS #30 tab 02/12/17 [Rx] Ipratropium-Albuterol Nebulize [Duoneb 0.5 mg-3 mg/3 ml Soln] 3 ml INHALATION RT-QID PRN 05/31/18 [History] HYDROcodone/APAP 10-325MG [Dunbar 10-325] 1 tab PO Q6H PRN #12 tab 06/20/18 [Rx] Melatonin 10 mg PO HS 07/03/18 [History] ALPRAZolam [Xanax] 0.25 mg PO Q8HR PRN 3 Days #9 tab 07/12/18 [Rx] Albuterol Inhaler [Ventolin Hfa Inhaler] 1 - 2 puff INHALATION RT-Q6H PRN 11/09/18 [History] Ascorbic Acid [Vitamin C] 1,000 mg PO DAILY 11/09/18 [History] Fluticasone Nasal [place] [Flonase Nasal [place]] 2 spray EA NOSTRIL DAILY PRN #1 bottle 11/12/18 [Rx] guaiFENesin [Mucinex] 1,200 mg PO Q12HR tablet.er 01/25/19 [Rx] predniSONE 60 mg PO DAILY tab 01/25/19 [Rx] Diltiazem Cd [Cardizem CD] 240 mg PO DAILY 30 Days #30 cap.er.24h 02/14/19 [Rx] Fidaxomicin [Dificid] 200 mg PO BID 10 Days #20 tablet 02/14/19 [Rx] Furosemide [Lasix] 40 mg PO DAILY 30 Days #30 tab 02/14/19 [Rx] Methimazole [Tapazole] 5 mg PO DAILY 30 Days #30 tab 02/14/19 [Rx] Follow up Appointment(s)/Referral(s): Ning Lock MD [Primary Care Provider] - 1-2 days Grisel Valdez MD [STAFF PHYSICIAN] - 1 Week Christiano Ferrell MD [STAFF PHYSICIAN] - 1 Week Activity/Diet/Wound Care/Special Instructions: Activity as tolerated Diet heart healthy Discharge Disposition: HOME SELF-CARE
[2019-02-14 14:03] VITALS: BP 145/73; RESP 16; TEMP 99.3
--- NOTE | 2019-02-14 14:45 | CDI ---
Documentation Clarification Form Date: 02/14/2019 From: Kaia Tavares RN CCDS Admit Date: 02/02/2019 7:06:00 PM Patient Name: Lula Weathers Visit Number: [id number] Discharge Date: ATTENTION: The Clinical Documentation Specialists (CDI) and [facility] Coding Staff appreciate your assistance in clarifying documentation. Please respond to the clarification below the line at the bottom and electronically sign. The CDI & [facility] Coding staff will review the response and follow-up if needed. Please note: Queries are made part of the Legal Health Record. If you have any questions, please contact the author of this message via ITS. Dr. iNng Lock The diagnosis Sepsis was documented in the H & P and in Pulmonary Progress Notes , but is not consistently noted in subsequent documentation. History/Risk Factors: 63 year old female presents to the ED with diarrhea and diffuse abdominal pain for five days. Medical history recent COPD exacerbation treated with steroids and antibiotics. Clinical Indicators: admission 02/02/2019 vss 124/79 92 99.7 18 88% ra Temp 02/03 100.1 WBC 25.6 ; Positive Stool occult blood; Positive C.difficle ; Infectious Disease consult; Pulmonary Consult Treatment: Questran; 3L 0.9ns ivfl bolus, VAncomycin oral , Dificid oral Please clarify if Sepsis was: o Present/active this admission o Treated and resolved this admission o Ruled out o Other, please specify o Clinically unable to determine (Last Revision: May 2018-New) ruled out MTDD
[2019-02-14 15:15] VITALS: PULSE 92
--- NOTE | 2019-02-14 15:22 | PN ---
PROGRESS NOTE DATE OF SERVICE: 02/14/2019 REASON FOR FOLLOWUP: C difficile colitis. INTERVAL HISTORY: The patient is currently afebrile. The patient has been breathing comfortably. The patient did have a soft bowel movement. No nausea. No vomiting. No chest pain or shortness of breath. PHYSICAL EXAMINATION: Blood pressure 133/76, pulse of 65, temperature 98.7. She is 97% on 3 L nasal cannula. General description is middle-aged female up in the room in no distress. RESPIRATORY SYSTEM: Unlabored breathing. Clear to auscultation anteriorly. HEART: S1, S2. Regular rate and rhythm. ABDOMEN: Soft. No tenderness. LABS: Hemoglobin is 11.3, white count 12,000, BUN of 9, creatinine 0.40. DIAGNOSTIC IMPRESSION AND PLAN: Patient with Clostridium difficile colitis in this patient who did not respond very well to the p.o. vancomycin; however, she seems to be doing well on the oral Dificid, which the patient will continue to finish a course of therapy. She has been advised to increase her probiotic and yogurt intake. Continue with supportive care. MMODL / IJN: [id number] /
== END 2019-02-14 16:23 | disposition home or self-care (01) | DRG 371 ==
LOC: EC 15:35 → 4SSUR 19:06 → 4MS4W 02-03 20:16 → 4SSUR 02-03 20:16
PROVIDERS: ADMIT Internal Medicine; ATTEND Internal Medicine
DX: A04.71 Enterocolitis due to Clostridium difficile, recurrent (principal); I50.33 Acute on chronic diastolic (congestive) heart failure; J96.21 Acute and chronic respiratory failure with hypoxia; J96.22 Acute and chronic respiratory failure with hypercapnia; R18.8 Other ascites; I11.0 Hypertensive heart disease with heart failure; I48.2 Chronic atrial fibrillation; J43.9 Emphysema, unspecified; M41.9 Scoliosis, unspecified; E05.90 Thyrotoxicosis, unspecified without thyrotoxic crisis or storm; E87.6 Hypokalemia; F32.9 Major depressive disorder, single episode, unspecified; F40.240 Claustrophobia; F43.10 Post-traumatic stress disorder, unspecified; G89.29 Other chronic pain; I25.10 Atherosclerotic heart disease of native coronary artery without angina pectoris; I25.2 Old myocardial infarction; I34.1 Nonrheumatic mitral (valve) prolapse; I49.3 Ventricular premature depolarization; K21.9 Gastro-esophageal reflux disease without esophagitis; K58.9 Irritable bowel syndrome, unspecified; M19.90 Unspecified osteoarthritis, unspecified site; N83.209 Unspecified ovarian cyst, unspecified side; M81.0 Age-related osteoporosis without current pathological fracture; T38.0X5A Adverse effect of glucocorticoids and synthetic analogues, initial encounter; B19.20 Unspecified viral hepatitis C without hepatic coma; M54.5 Low back pain; R73.9 Hyperglycemia, unspecified; F41.9 Anxiety disorder, unspecified; R91.1 Solitary pulmonary nodule; Z79.899 Other long term (current) drug therapy; Z79.52 Long term (current) use of systemic steroids; Z88.1 Allergy status to other antibiotic agents; Z88.2 Allergy status to sulfonamides; Z99.81 Dependence on supplemental oxygen; Z87.891 Personal history of nicotine dependence; Z86.19 Personal history of other infectious and parasitic diseases; Z85.41 Personal history of malignant neoplasm of cervix uteri; Z87.440 Personal history of urinary (tract) infections; Z90.49 Acquired absence of other specified parts of digestive tract; Z82.49 Family history of ischemic heart disease and other diseases of the circulatory system; Z80.1 Family history of malignant neoplasm of trachea, bronchus and lung
CPT/HCPCS: 36415; 71046; 74177; 76604; 80053; 81003; 82150; 82272; 83605; 83690; 83880; 84132; 85025; 85610; 85730; 87040; 87045; 87046; 87324; 93005; 94640; 94760; 96361; 96374; 96375; 99285

== ENCOUNTER 2019-03-05 17:37 | Observation (INO) | payer OTHER ==
[2019-03-05] MEDS ORDERED: ONDANSETRON 4 MG/2 ML VIAL IVP STA (18:23)
[2019-03-05] MEDS ORDERED: SODIUM CHLORIDE 0.9% 1,000 ML IV STA (18:23)
[2019-03-05] MEDS ORDERED: MORPHINE SULFATE 4 MG/ML SYRINGE IV STA (18:23)
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
[2019-03-05 19:42] LABS: Basophils % (A) 0 %; Eosinophils % (A) 0 %; HCT 40.5 % (34.0-46.0); HGB 13.1 gm/dL (11.4-16.0); Lymphocytes # (A) 1.1 k/uL (1.0-4.8); Lymphocytes % (A) 5 %; MCH 29.5 pg (25.0-35.0); MCHC 32.4 g/dL (31.0-37.0); MCV 90.9 fL (80.0-100.0); Mean Platelet Volume 7.3; Monocytes # (A) 0.8 k/uL (0-1.0); Monocytes % (A) 4 %; Neutrophils # (A) 18.8 k/uL (1.3-7.7); Neutrophils % (A) 89 %; Platelet Count 317 k/uL (150-450); RBC 4.45 m/uL (3.80-5.40); RDW 15.7 % (11.5-15.5); WBC 21.3 k/uL (3.8-10.6)
[2019-03-05 19:52] LABS: ALT 18 U/L (9-52); AST 30 U/L (14-36); African American GFR (CKD) >90 (>60 ml/min/1.73 sqM); Albumin 3.9 g/dL (3.5-5.0); Alkaline Phosphatase 77 U/L (38-126); Anion Gap 8 mmol/L; Blood Urea Nitrogen 16 mg/dL (7-17); Calcium 9.3 mg/dL (8.4-10.2); Carbon Dioxide 36 mmol/L (22-30); Chloride 90 mmol/L (98-107); Glucose 110 mg/dL (74-99); Potassium 3.4 mmol/L (3.5-5.1); Sodium 134 mmol/L (137-145); Total Bilirubin 0.7 mg/dL (0.2-1.3); Total Protein 6.8 g/dL (6.3-8.2)
[2019-03-05 20:02] LABS: Amorphous Sediment,Urine Occasional /hpf; Appearance,Urine Cloudy (Clear); Bilirubin,Urine 1+ (Negative); Blood,Urine Large (Negative); Color,Urine Dark Brown; Glucose,Urine (UA) Negative (Negative); Hyaline Casts,Urine 117 /lpf (0-2); Ketones,Urine Negative (Negative); Leukocyte Esterase,Urine Moderate (Negative); Mucus,Urine Few /hpf; Nitrite,Urine Negative (Negative); PH, Urine 5.5 (5.0-8.0); Protein,Urine 1+ (Negative); RBC,Urine >182 /hpf (0-5); Specific Gravity,Urine 1.022 (1.001-1.035); Squamous Epithelial Cell,Urine 30 /hpf (0-4); WBC,Urine 55 /hpf (0-5)
--- NOTE | 2019-03-05 20:40 | XR ---
KUB HISTORY: Diarrhea, pain Frontal KUB submitted and correlated prior exam 05/31/2018 Scoliotic curvature is again noted. Probable vascular calcifications are noted. Lung bases are stable , prominent lung volume may be indicative of underlying COPD. There is no evident pneumoperitoneum or bowel obstruction. There are some air-fluid levels without bowel distention. IMPRESSION: Nonobstructive bowel gas pattern.
[2019-03-05] MEDS ORDERED: IPRATROPIUM-ALBUTEROL 3 ML NEB INHALATION STA (20:42)
[2019-03-05] MEDS ORDERED: POTASSIUM CHLORIDE ER 20 MEQ TAB.ER PO STA (20:53)
[2019-03-05] MEDS ORDERED: NALOXONE 0.4 MG/ML 1 ML VIAL IV PRN (21:28)
[2019-03-05] MEDS ORDERED: MORPHINE SULFATE 4 MG/ML SYRINGE IV PRN (21:28)
--- NOTE | 2019-03-05 21:50 | CT ---
EXAMINATION TYPE: CT abdomen pelvis w con DATE OF EXAM: 03/05/2019 COMPARISON: Prior CT dated 02/02/2019 HISTORY: Nausea, vomiting, diarrhea with back and abdominal pain. CT DLP: 573.2 mGycm Automated exposure control for dose reduction was used. TECHNIQUE: Helical acquisition of images from the lung bases through the pelvis have been completed. CONTRAST: Performed without Oral Contrast and with IV Contrast, patient injected with 100 mL of Isovue 300. FINDINGS: Small anterior abdominal wall hernia in the periumbilical region contains fat LUNG BASES: No significant interval change is appreciated, appearance is stable. AORTA: Aorta shows extensive calcification especially peripherally. LIVER/GB: Within the right lobe of the liver on axial image 19 there is a hypodense focus more conspi cuous than on prior exam measuring approximately 17 mm in size. PANCREAS: No significant abnormality is seen. SPLEEN: No significant abnormality is seen. ADRENALS: No significant abnormality is seen. KIDNEYS: No significant abnormality is seen. REPRODUCTIVE ORGANS: No significant interval change is seen, left ovarian cystic focus measures 3.6 c m BOWEL: No significant abnormality is seen. Gastric wall thickening is noted. Colon also shows diffus e abnormal wall thickening. FREE AIR: No Free Air visible. ASCITES: None visible. PELVIC ADENOPATHY: None visualized. RETROPERITONEAL ADENOPATHY: No Retroperitoneal Adenopathy visible. URINARY BLADDER: No significant abnormality is seen. OSSEOUS STRUCTURES: No significant interval change is seen. There is a spinal curvature. IMPRESSION: CORRELATE FOR COLITIS. THERE MAY BE UNDERLYING GASTRITIS. INDETERMINATE HYPODENSITY WITHIN THE RIGHT LOBE OF THE LIVER, FOLLOW-UP. INDETERMINATE CYSTIC LEFT OVARIAN LESION.
[2019-03-05] MEDS: HYDROmorphone 1 MG/ML 1 ML SYRINGE IVP PRN (22:56)
[2019-03-05] MEDS: SODIUM CHLORIDE 0.9% 1,000 ML IV SCH (23:29)
[2019-03-06] MEDS: HYDROmorphone 1 MG/ML 1 ML SYRINGE IVP PRN ×5 (05:18→20:54)
[2019-03-06] MEDS: ONDANSETRON 4 MG/2 ML VIAL IVP PRN ×2 (05:42→16:56)
[2019-03-06] MEDS ORDERED: FLUTICASONE 50MCG/SPRAY NASAL 16GM EA NOSTRIL PRN (08:40)
[2019-03-06] MEDS ORDERED: ALBUTEROL INHALER 60 PUFF/8 GM INHALER INHALATION PRN (08:40)
[2019-03-06] MEDS: FUROSEMIDE 40 MG TAB PO SCH (08:52)
[2019-03-06] MEDS: ASCORBIC ACID 500 MG TAB PO SCH (08:52)
[2019-03-06] MEDS: ENOXAPARIN 40 MG/0.4 ML SYRINGE SQ SCH (08:52)
[2019-03-06] MEDS: IPRATROPIUM-ALBUTEROL 3 ML NEB INHALATION PRN ×4 (08:55→19:03)
[2019-03-06] MEDS: PANTOPRAZOLE 40 MG TABLET PO SCH ×2 (08:56→20:50)
[2019-03-06] MEDS ORDERED: DILTIAZEM CD 240 MG CAP.ER.24H PO SCH (09:00)
[2019-03-06 09:01] LABS: Basophils % (A) 0 %; Eosinophils # (A) 0.1 k/uL (0-0.7); Eosinophils % (A) 1 %; HCT 36.7 % (34.0-46.0); HGB 11.3 gm/dL (11.4-16.0); Hypochromasia Slight; Lymphocytes # (A) 1.8 k/uL (1.0-4.8); Lymphocytes % (A) 15 %; MCH 28.4 pg (25.0-35.0); MCHC 30.8 g/dL (31.0-37.0); MCV 92.2 fL (80.0-100.0); Mean Platelet Volume 7.6; Monocytes # (A) 0.7 k/uL (0-1.0); Monocytes % (A) 6 %; Neutrophils # (A) 8.8 k/uL (1.3-7.7); Neutrophils % (A) 75 %; Platelet Count 285 k/uL (150-450); RBC 3.98 m/uL (3.80-5.40); RDW 15.7 % (11.5-15.5); WBC 11.8 k/uL (3.8-10.6)
[2019-03-06 09:21] LABS: ALT 17 U/L (9-52); AST 28 U/L (14-36); African American GFR (CKD) >90 (>60 ml/min/1.73 sqM); Albumin 3.4 g/dL (3.5-5.0); Alkaline Phosphatase 67 U/L (38-126); Anion Gap 10 mmol/L; Blood Urea Nitrogen 11 mg/dL (7-17); Calcium 8.9 mg/dL (8.4-10.2); Carbon Dioxide 30 mmol/L (22-30); Chloride 96 mmol/L (98-107); Glucose 77 mg/dL (74-99); Sodium 136 mmol/L (137-145); Total Bilirubin 0.6 mg/dL (0.2-1.3); Total Protein 6.2 g/dL (6.3-8.2)
[2019-03-06] MEDS: METHIMAZOLE 5 MG TAB PO SCH (10:01)
[2019-03-06] MEDS: HYDROcodone/APAP 10-325MG 1 EACH TAB PO PRN ×3 (10:02→22:03)
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
[2019-03-06 15:00] VITALS: BMI 26.4
[2019-03-06] MEDS: SODIUM CHLORIDE 0.9% 1,000 ML IV SCH (15:24)
--- NOTE | 2019-03-06 16:15 | US ---
EXAMINATION TYPE: US liver DATE OF EXAM: 03/06/2019 COMPARISON: CT yesterday and older CTs back through 2010 CLINICAL HISTORY: Hypodensity within the right lobe of the liver. F/U to CT scan. EXAM MEASUREMENTS: Liver Length: 18 cm Gallbladder Wall: cm CBD: 0.5 cm Right Kidney: 11.1 cm Pancreas: wnl Liver: Hyperechoic area right lobe 1.4 x 1.8 x 1.8 m. Gallbladder: Surgically absent Evidence for sonographic Gustafson's sign: No CBD: wnl Right Kidney: wnl Prominent right hepatic lobe redemonstrated. There is 1.8 cm hyperechoic lesion right hepatic lobe ma y correspond to the new CT lesion. Hyperechoic appearance would suggest benign hemangioma but presenc e of new lesion is concerning compared to older studies. Advise follow-up liver protocol contrast-enh anced CT or MRI to more definitively evaluate. IMPRESSION: As above.
[2019-03-06] MEDS: FLUTICASONE 110 MCG INHALER INHALATION SCH (19:18)
[2019-03-06] MEDS: PRAMIPEXOLE 0.5 MG TAB PO SCH (20:50)
[2019-03-06] MEDS: MELATONIN 5 MG TABLET PO SCH (20:50)
[2019-03-06] MEDS: CHOLECALCIFEROL 1,000 UNIT TAB PO SCH (20:50)
[2019-03-06] MEDS: MONTELUKAST 10 MG TAB PO SCH (20:50)
[2019-03-06] MEDS: DILTIAZEM CD 240 MG CAP.ER.24H PO SCH (20:50)
[2019-03-06] MEDS: ALPRAZolam 0.25 MG TAB PO PRN (22:46)
[2019-03-06] MEDS: ALBUTEROL NEBULIZED 2.5 MG/3 ML INHALATION PRN (23:51)
[2019-03-07] MEDS: HYDROmorphone 1 MG/ML 1 ML SYRINGE IVP PRN ×5 (01:49→19:46)
[2019-03-07] MEDS: HYDROcodone/APAP 10-325MG 1 EACH TAB PO PRN ×4 (04:00→23:13)
[2019-03-07] MEDS: ALBUTEROL NEBULIZED 2.5 MG/3 ML INHALATION PRN (04:10)
[2019-03-07] MEDS: ONDANSETRON 4 MG/2 ML VIAL IVP PRN ×2 (06:29→15:18)
[2019-03-07] MEDS: FLUTICASONE 110 MCG INHALER INHALATION SCH ×2 (07:14→19:22)
[2019-03-07] MEDS: IPRATROPIUM-ALBUTEROL 3 ML NEB INHALATION PRN ×5 (07:14→23:02)
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
[2019-03-07 08:09] LABS: HCT 33.8 % (34.0-46.0); HGB 10.4 gm/dL (11.4-16.0); Hypochromasia Moderate; MCH 28.7 pg (25.0-35.0); MCHC 30.8 g/dL (31.0-37.0); MCV 93.2 fL (80.0-100.0); Mean Platelet Volume 7.2; Platelet Count 231 k/uL (150-450); RBC 3.63 m/uL (3.80-5.40); RDW 15.6 % (11.5-15.5); WBC 5.6 k/uL (3.8-10.6)
[2019-03-07] MEDS: ASCORBIC ACID 500 MG TAB PO SCH (08:24)
[2019-03-07] MEDS: ENOXAPARIN 40 MG/0.4 ML SYRINGE SQ SCH (08:24)
[2019-03-07] MEDS: PANTOPRAZOLE 40 MG TABLET PO SCH ×2 (08:25→21:00)
[2019-03-07] MEDS: FUROSEMIDE 40 MG TAB PO SCH (08:25)
[2019-03-07] MEDS: METHIMAZOLE 5 MG TAB PO SCH (08:25)
[2019-03-07 08:41] LABS: ALT 17 U/L (9-52); AST 24 U/L (14-36); African American GFR (CKD) >90 (>60 ml/min/1.73 sqM); Alkaline Phosphatase 59 U/L (38-126); Anion Gap 5 mmol/L; Blood Urea Nitrogen 5 mg/dL (7-17); Calcium 8.5 mg/dL (8.4-10.2); Carbon Dioxide 33 mmol/L (22-30); Chloride 99 mmol/L (98-107); Glucose 78 mg/dL (74-99); Potassium 3.7 mmol/L (3.5-5.1); Sodium 137 mmol/L (137-145); Total Bilirubin 0.4 mg/dL (0.2-1.3); Total Protein 5.7 g/dL (6.3-8.2)
--- NOTE | 2019-03-07 09:38 | P.PN ---
Subjective Progress Note Date: 03/07/19 Principal diagnosis: Stable COPD, chronic hypoxic respiratory failure, history of severe C. difficile colitis, diffuse colitis and gastritis, urinary tract infection, congestive he art failure, chronic low back pain, 03/07/2019, patient seen and evaluated examined during the rounds doing well denies any chest pain shortness of breath is stable no cough is present patient is on bronchodilators and supplemental oxygen off of his steroids, on antibiotics or urinary tract infection This is a 63-year-old female patient presents with complaints of abdominal pain with diarrhea. Patient was recently admitted and treated for C. diff. patient has stable COPD and emphysema she is on home oxygen as well She was DC'd home on antibiotics completed treatment and did have improvement, she became constipated and did not have a bowel movement for multiple days then suddenly she had multiple loose stools, foul-smelling. Patient also reports that she's been having burning with urination and pain. Patient has past medical history of coronary artery disease, paroxysmal atrial fibrillation, heart failure, COPD, GERD, hypertension, liver disease, myocardial infarction, MVP, osteoarthritis, anxiety depression and PTSD. CT of abdomen and pelvis completed showing correlation for colitis. There may be underlying gastritis. Into determinate hypodensity within the right lobe of the liver anterior determinate cystic left ovarian lesion. WBC elevated at 21.3. UA positive for urinary tract infection. Urine culture ordered patient started on Rocephin. As far as her breathing is concerned she appears to be stable on supplemental oxygen denies any sputum production mild intermittent cough is present Objective - Vital Signs Vital signs: Vital Signs Temp 98.7 F 03/07/19 07:00 Pulse 78 03/07/19 07:27 Resp 16 03/07/19 07:00 BP 101/67 03/07/19 07:00 Pulse Ox 93 L 03/07/19 07:00 Intake & Output 03/06/19 03/07/19 03/07/19 18:59 06:59 18:59 Intake Total 625 240 Balance 625 240 Weight 61.235 kg Intake: Oral 625 240 Other: Voiding Method Toilet # Voids 1 2 - Exam Constitutional General appearance: average body habitus, cooperative, disheveled - EENT Eyes: EOMI, PERRLA, poor dentition, normal appearance ENT: normal oropharynx Ears: bilateral: normal - Neck Neck: normal ROM Carotids: bilateral: upstroke normal, bruit absent Thyroid: bilateral: normal size - Respiratory Respiratory: bilateral: diminished, prolonged expiration, negative: CTA, d ullness, rales, rhonchi, wheezing - Cardiovascular Rhythm: regular Heart sounds: normal: S1, S2 - Gastrointestinal General gastrointestinal: decreased bowel sounds, distended, soft - Neurologic Neurologic: CNII-XII intact - Musculoskeletal Musculoskeletal: gait normal, generalized weakness, strength equal bilaterally - Psychiatric Psychiatric: A&O x's 3, appropriate affect, intact judgment & insight - Labs CBC & Chem 7: 03/07/19 07:28 03/07/19 07:28 Labs: Abnormal Lab Results - Last 24 Hours (Table) 03/07/19 03/07/19 Range/Units 07:28 07:28 RBC 3.63 L (3.80-5.40) m/uL Hgb 10.4 L (11.4-16.0) gm/dL Hct 33.8 L (34.0-46.0) % MCHC 30.8 L (31.0-37.0) g/dL RDW 15.6 H (11.5-15.5) % Carbon Dioxide 33 H (22-30) mmol/L BUN 5 L (7-17) mg/dL Creatinine 0.36 L (0.52-1.04) mg/dL Total Protein 5.7 L (6.3-8.2) g/dL Albumin 3.0 L (3.5-5.0) g/dL Microbiology - Last 24 Hours (Table) 03/05/19 19:09 Urine Culture - Final Urine,Voided 03/05/19 20:45 Blood Culture - Preliminary Blood No Growth after 24 hours Assessment and Plan Assessment: Stable COPD Stable hypoxic respiratory failure on home oxygen Abdominal pain with diarrhea C. diff is negative have ongoing colitis and gastritis UTI Congestive heart failure History of C. difficile colitis Chronic low back pain Chronic hypothyroidism Plan: Continue gentle rehydration Antibiotics for urinary tract infection but recommend to use it for minimal days as possible I'll avoid steroids Continue bronchodilators DVT prophylaxis Continue oxygen Further recommendations pending plan of care as per clinical response of patient Time with Patient: Greater than 30
--- NOTE | 2019-03-07 09:45 | P.PN ---
Subjective Progress Note Date: 03/07/19 This is a 63-year-old female patient presents with complaints of abdominal pain with diarrhea. Patient was recently admitted and treated for C. diff. Patient reports that she was DC'd home on antibiotics completed treatment and did have improvement. Patient reports then she became constipated and did not have a bowel movement for multiple days. She reports that when she did start she had multiple loose stools, foul-smelling. Patient also reports that she's been having burning with urination and pain. Patient has past medical history of coronary artery disease, paroxysmal atrial fibrillation, heart failure, COPD, GERD, hypertension, liver disease, myocardial infarction, MVP, osteoarthritis, a nxiety depression and PTSD. CT of abdomen and pelvis completed showing correlation for colitis. There may be underlying gastritis. Into determinate hypodensity within the right lobe of the liver anterior determinate cystic left ovarian lesion. WBC elevated at 21.3. UA positive for urinary tract infection. Urine culture ordered patient started on Rocephin. Infectious disease and pulmonary services have been consulted. Liver ultrasound ordered. At this time patient denies chest pain or shortness of breath. Patient is complaining of abdominal pain. Patient denies any nausea or vomiting. On 03/07/2019 patient is alert and oriented 3. Patient reports she has not had a bowel movement throughout the night. White blood cell has responded to antibiotics. WBC 5.6. At this time patient denies chest pain or shortness. Patient reports she has been able to eat. Patient denies any urinary burning or frequency Objective - Vital Signs Vital signs: Vital Signs Temp 98.7 F 03/07/19 07:00 Pulse 78 03/07/19 07:27 Resp 16 03/07/19 07:00 BP 101/67 03/07/19 07:00 Pulse Ox 93 L 03/07/19 07:00 Intake & Output 03/06/19 03/07/19 03/07/19 18:59 06:59 18:59 Intake Total 625 240 Balance 625 240 Weight 61.235 kg Intake: Oral 625 240 Other: Voiding Method Toilet # Voids 1 2 - Exam Head normocephalic Neck supple Lungs diminished bilaterally Heart regular rate and rhythm S1-S2, no rub or gallop Abdomen is soft nondistended tender to palpation Extremities no edema Neuro alert and orientated to 3 - Labs CBC & Chem 7: 03/07/19 07:28 03/07/19 07:28 Labs: Abnormal Lab Results - Last 24 Hours (Table) 03/07/19 03/07/19 Range/Units 07:28 07:28 RBC 3.63 L (3.80-5.40) m/uL Hgb 10.4 L (11.4-16.0) gm/dL Hct 33.8 L (34.0-46.0) % MCHC 30.8 L (31.0-37.0) g/dL RDW 15.6 H (11.5-15.5) % Carbon Dioxide 33 H (22-30) mmol/L BUN 5 L (7-17) mg/dL Creatinine 0.36 L (0.52-1.04) mg/dL Total Protein 5.7 L (6.3-8.2) g/dL Albumin 3.0 L (3.5-5.0) g/dL Microbiology - Last 24 Hours (Table) 03/05/19 19:09 Urine Culture - Final Urine,Voided 03/05/19 20:45 Blood Culture - Preliminary Blood No Growth after 24 hours Assessment and Plan Assessment: 1. Abdominal pain with diarrhea. C. diff negative. Lipase 15. CT of abdomen completed showing correlation for colitis there may be underlining gastritis. Infectious disease services have been consulted. Blood culture ordered 2. Urinary tract infection. Patient started on Rocephin urine culture ordered 3. Indeterminate hypodensity within the right lobe of the liver ultrasound of liver ordered. Ultrasound of the liver completed showing right hepatic lobe r edemonstrated. There is 1.8 cm hyperechoic lesion right hepatic lobe may correspond lesion. Hyper echoic appearance would suggest benign hemangioma but presence of new lesions concerning compared to old study. Advise follow-up liver protocol ct or MRI to more definitively evaluate. 4. Chronic hypoxic respiratory failure. Maintained on home O2. Pulmonary services have been consulted 5. History of congestive heart failure 6. History of C. diff colitis. Patient was DC'd on to facet for 10 days during previous admission 7. History of chronic back pain 8. History of hyperthyroidism patient maintained on Tapazole 9. indeterminate left ovarian lesion seen on computed tomography scan. Patient to follow-up PCP for further workup DVT prophylaxis Lovenox. GI prophylaxis Protonix I performed an examination of the patient and discussed their management with the Nurse Practitioner. I have reviewed the Nurse Practitioner's notes and agree with the documented findings and plan of care
[2019-03-07 09:47] LABS: Eosinophils # (M) 0.56 k/uL (0-0.7); Lymphocytes # (M) 2.07 k/uL (1.0-4.8); Monocytes # (M) 0.45 k/uL (0-1.0); Neutrophils % (M) 45 %; Nucleated Red Blood Cells 0 /100 WBC (0-0); Total Cells Counted 100
[2019-03-07] MEDS: SODIUM CHLORIDE 0.9% 1,000 ML IV SCH (15:14)
--- NOTE | 2019-03-07 19:18 | PN ---
PROGRESS NOTE DATE OF SERVICE: 03/07/2019. REASON FOR FOLLOWUP: Urinary tract infection and a question of C difficile. INTERVAL HISTORY: The patient is currently afebrile. Patient has been breathing comfortably. Patient denies having any chest pain or shortness of breath. Occasional cough. The patient's continued to complain of abdominal pain, however, the diarrhea has resolved. No bowel movement since yesterday. Urinary symptoms persist. PHYSICAL EXAMINATION: Blood pressure 130/76, pulse of 80. Temperature 98.2. She is 95% on 2 L nasal cannula. General description is a middle aged female lying in bed in no distress. Respiratory system: Unlabored breathing. Clear to auscultation anteriorly. Heart S1, S2. Regular rate and rhythm. Abdomen soft, no tenderness. LABORATORY DATA: Hemoglobin 10.4, white count 5.6, BUN of 5, creatinine 0.36. IMPRESSION/PLAN: 1. The patient admitted to the hospital with abdominal pain. The patient did have diarrhea with a history of C diff with concern for possible C difficile However, initial stool for C difficile is negative and patient no further diarrhea. Clinically doubt or C difficile. 2. The patient positive urinalysis likely urinary tract infection, did respond to Rocephin as white count has normalized. Continue for a short course and continue supportive care. MMODL / IJN: [id number] / TRISH
[2019-03-07] MEDS: ALPRAZolam 0.25 MG TAB PO PRN (21:00)
[2019-03-07] MEDS: DILTIAZEM CD 240 MG CAP.ER.24H PO SCH (21:00)
[2019-03-07] MEDS: MELATONIN 5 MG TABLET PO SCH (21:00)
[2019-03-07] MEDS: MONTELUKAST 10 MG TAB PO SCH (21:00)
[2019-03-07] MEDS: CHOLECALCIFEROL 1,000 UNIT TAB PO SCH (21:00)
[2019-03-07] MEDS: PRAMIPEXOLE 0.5 MG TAB PO SCH (21:00)
[2019-03-08] MEDS: HYDROmorphone 1 MG/ML 1 ML SYRINGE IVP PRN ×6 (00:13→20:30)
[2019-03-08] MEDS: IPRATROPIUM-ALBUTEROL 3 ML NEB INHALATION PRN ×5 (03:22→23:08)
[2019-03-08] MEDS: HYDROcodone/APAP 10-325MG 1 EACH TAB PO PRN ×3 (06:23→17:40)
[2019-03-08] MEDS: ONDANSETRON 4 MG/2 ML VIAL IVP PRN (06:24)
[2019-03-08] MEDS: ALBUTEROL NEBULIZED 2.5 MG/3 ML INHALATION PRN (07:05)
[2019-03-08] MEDS: FLUTICASONE 110 MCG INHALER INHALATION SCH ×2 (07:37→20:03)
[2019-03-08] MEDS ORDERED: IPRATROPIUM-ALBUTEROL 3 ML NEB INHALATION PRN (07:59)
[2019-03-08] MEDS: ENOXAPARIN 40 MG/0.4 ML SYRINGE SQ SCH (08:10)
[2019-03-08] MEDS: FUROSEMIDE 40 MG TAB PO SCH (08:11)
[2019-03-08] MEDS: ASCORBIC ACID 500 MG TAB PO SCH (08:11)
[2019-03-08] MEDS: PANTOPRAZOLE 40 MG TABLET PO SCH ×2 (08:11→20:26)
[2019-03-08] MEDS: METHIMAZOLE 5 MG TAB PO SCH (08:16)
[2019-03-08 08:47] LABS: ALT 18 U/L (9-52); AST 24 U/L (14-36); African American GFR (CKD) >90 (>60 ml/min/1.73 sqM); Albumin 3.5 g/dL (3.5-5.0); Alkaline Phosphatase 74 U/L (38-126); Anion Gap 6 mmol/L; Blood Urea Nitrogen 9 mg/dL (7-17); Carbon Dioxide 33 mmol/L (22-30); Chloride 98 mmol/L (98-107); Glucose 80 mg/dL (74-99); Potassium 4.2 mmol/L (3.5-5.1); Sodium 137 mmol/L (137-145); Total Bilirubin 0.3 mg/dL (0.2-1.3); Total Protein 6.4 g/dL (6.3-8.2)
[2019-03-08] MEDS: ALPRAZolam 0.25 MG TAB PO PRN ×2 (09:40→22:24)
[2019-03-08 10:08] LABS: HCT 35.6 % (34.0-46.0); HGB 10.9 gm/dL (11.4-16.0); Hypochromasia Moderate; MCH 28.7 pg (25.0-35.0); MCHC 30.7 g/dL (31.0-37.0); MCV 93.7 fL (80.0-100.0); Mean Platelet Volume 8.7; Platelet Count 224 k/uL (150-450); RDW 15.4 % (11.5-15.5); WBC 5.8 k/uL (3.8-10.6)
[2019-03-08 13:16] LABS: Basophils # (M) 0.06 k/uL (0-0.2); Eosinophils # (M) 0.46 k/uL (0-0.7); Monocytes # (M) 0.46 k/uL (0-1.0); Neutrophils % (M) 45 %; Nucleated Red Blood Cells 0 /100 WBC (0-0); Total Cells Counted 100
[2019-03-08] MEDS: SODIUM CHLORIDE 0.9% 1,000 ML IV SCH (17:07)
--- NOTE | 2019-03-08 19:59 | P.PN ---
Subjective Progress Note Date: 03/08/19 This is a 63-year-old female patient presents with complaints of abdominal pain with diarrhea. Patient was recently admitted and treated for C. diff. Patient reports that she was DC'd home on antibiotics completed treatment and did have improvement. Patient reports then she became constipated and did not have a bowel movement for multiple days. She reports that when she did start she had multiple loose stools, foul-smelling. Patient also reports that she's been having burning with urination and pain. Patient has past medical history of coronary artery disease, paroxysmal atrial fibrillation, heart failure, COPD, GERD, hypertension, liver disease, myocardial infarction, MVP, osteoarthritis, a nxiety depression and PTSD. CT of abdomen and pelvis completed showing correlation for colitis. There may be underlying gastritis. Into determinate hypodensity within the right lobe of the liver anterior determinate cystic left ovarian lesion. WBC elevated at 21.3. UA positive for urinary tract infection. Urine culture ordered patient started on Rocephin. Infectious disease and pulmonary services have been consulted. Liver ultrasound ordered. At this time patient denies chest pain or shortness of breath. Patient is complaining of abdominal pain. Patient denies any nausea or vomiting. On 03/07/2019 patient is alert and oriented 3. Patient reports she has not had a bowel movement throughout the night. White blood cell has responded to antibiotics. WBC 5.6. At this time patient denies chest pain or shortness. Patient reports she has been able to eat. Patient denies any urinary burning or frequency On 03/08/2019 patient was seen and examined on the medical floor she is alert and oriented 3 in no apparent distress she is still complaining of some abdominal discomfort but improved since yesterday there is no fever no chills no headache or dizziness no chest pain no shortness of breath no cough no nausea or vomiting no diarrhea and no urinary symptoms Objective - Vital Signs Vital signs: Vital Signs Temp 98.3 F 03/08/19 15:12 Pulse 80 03/08/19 16:00 Resp 15 03/08/19 15:12 BP 114/75 03/08/19 15:12 Pulse Ox 96 03/08/19 15:12 Intake & Output 03/08/19 03/08/19 03/09/19 06:59 18:59 06:59 Intake Total 680 Balance 680 Intake: Oral 680 Other: # Voids 3 - Exam In general patient is alert and oriented 3 in no apparent distress Head normocephalic and atraumatic Neck supple no JVD no goiter Lungs diminished bilaterally Heart regular rate and rhythm S1-S2, no rub or gallop Abdomen is soft nondistended tender to palpation Extremities no edema no cyanosis or clubbing Neuro alert and orientated to 3 no gross focal neurological deficit - Labs CBC & Chem 7: 03/08/19 07:24 03/08/19 07:24 Labs: Abnormal Lab Results - Last 24 Hours (Table) 03/08/19 03/08/19 Range/Units 07:24 07:24 Hgb 10.9 L (11.4-16.0) gm/dL MCHC 30.7 L (31.0-37.0) g/dL Carbon Dioxide 33 H (22-30) mmol/L Creatinine 0.40 L (0.52-1.04) mg/dL Microbiology - Last 24 Hours (Table) 03/05/19 20:45 Blood Culture - Preliminary Blood No Growth after 48 hours Assessment and Plan Plan: 1. Abdominal pain with diarrhea. C. diff negative. Lipase 15. CT of abdomen completed showing correlation for colitis there may be underlining gastritis. Infectious disease services have been consulted. Blood culture ordered 2. Urinary tract infection. Patient started on Rocephin urine culture ordered 3. Indeterminate hypodensity within the right lobe of the liver ultrasound of liver ordered. Ultrasound of the liver completed showing right hepatic lobe redemonstrated. There is 1.8 cm hyperechoic lesion right hepatic lobe may correspond lesion. Hyper echoic appearance would suggest benign hemangioma but presence of new lesions concerning compared to old study. Advise follow-up liver protocol ct or MRI to more definitively evaluate. 4. Chronic hypoxic respiratory failure. Maintained on home O2. Pulmonary services have been consulted 5. History of congestive heart failure 6. History of C. diff colitis. Patient was DC'd on to facet for 10 days during previous admission 7. History of chronic back pain 8. History of hyperthyroidism patient maintained on Tapazole 9. indeterminate left ovarian lesion seen on computed tomography scan. Patient to follow-up PCP for further workup DVT prophylaxis Lovenox. GI prophylaxis Protonix
[2019-03-08] MEDS: MELATONIN 5 MG TABLET PO SCH (20:25)
[2019-03-08] MEDS: DILTIAZEM CD 240 MG CAP.ER.24H PO SCH (20:25)
[2019-03-08] MEDS: CHOLECALCIFEROL 1,000 UNIT TAB PO SCH (20:25)
[2019-03-08] MEDS: PRAMIPEXOLE 0.5 MG TAB PO SCH (20:26)
[2019-03-08] MEDS: MONTELUKAST 10 MG TAB PO SCH (20:26)
[2019-03-09] MEDS: HYDROcodone/APAP 10-325MG 1 EACH TAB PO PRN ×4 (00:29→21:31)
[2019-03-09] MEDS: IPRATROPIUM-ALBUTEROL 3 ML NEB INHALATION PRN ×6 (03:13→23:45)
[2019-03-09] MEDS: HYDROmorphone 1 MG/ML 1 ML SYRINGE IVP PRN ×5 (03:38→19:46)
[2019-03-09] MEDS: SODIUM CHLORIDE 0.9% 1,000 ML IV SCH ×2 (05:08→14:31)
[2019-03-09] MEDS: FLUTICASONE 110 MCG INHALER INHALATION SCH ×2 (07:41→20:48)
[2019-03-09 08:45] LABS: ALT 15 U/L (9-52); AST 21 U/L (14-36); African American GFR (CKD) >90 (>60 ml/min/1.73 sqM); Albumin 3.6 g/dL (3.5-5.0); Alkaline Phosphatase 55 U/L (38-126); Anion Gap 7 mmol/L; Blood Urea Nitrogen 12 mg/dL (7-17); Calcium 9.4 mg/dL (8.4-10.2); Carbon Dioxide 37 mmol/L (22-30); Chloride 96 mmol/L (98-107); Glucose 87 mg/dL (74-99); Potassium 4.8 mmol/L (3.5-5.1); Sodium 140 mmol/L (137-145); Total Bilirubin 0.3 mg/dL (0.2-1.3); Total Protein 6.5 g/dL (6.3-8.2)
[2019-03-09 09:22] LABS: Anisocytosis Slight; HCT 37.8 % (34.0-46.0); HGB 11.7 gm/dL (11.4-16.0); Hypochromasia Moderate; MCH 29.6 pg (25.0-35.0); MCHC 30.9 g/dL (31.0-37.0); MCV 95.7 fL (80.0-100.0); Mean Platelet Volume 7.9; Platelet Count 248 k/uL (150-450); RBC 3.95 m/uL (3.80-5.40); WBC 5.3 k/uL (3.8-10.6)
[2019-03-09] MEDS: PANTOPRAZOLE 40 MG TABLET PO SCH ×2 (09:34→20:12)
[2019-03-09] MEDS: ASCORBIC ACID 500 MG TAB PO SCH (09:34)
[2019-03-09] MEDS: FUROSEMIDE 40 MG TAB PO SCH (09:34)
[2019-03-09] MEDS: ENOXAPARIN 40 MG/0.4 ML SYRINGE SQ SCH (09:35)
[2019-03-09 10:49] LABS: Band Neutrophils % 1 %; Neutrophils % (M) 44 %; Nucleated Red Blood Cells 0 /100 WBC (0-0)
[2019-03-09 11:01] LABS: Eosinophils # (M) 0.64 k/uL (0-0.7); Lymphocytes # (M) 1.64 k/uL (1.0-4.8); Monocytes # (M) 0.69 k/uL (0-1.0); Myelocytes # (M) 0.05 k/uL (0); Myelocytes % 1 %; Total Cells Counted 200
[2019-03-09] MEDS: METHIMAZOLE 5 MG TAB PO SCH (11:41)
--- NOTE | 2019-03-09 13:37 | PN ---
PROGRESS NOTE DATE OF SERVICE: 03/08/2019. REASON FOR FOLLOWUP: Urinary tract infection. INTERVAL HISTORY: The patient is currently afebrile. The patient has been breathing comfortably. Denies having any chest pain or cough. No nausea, vomiting. Still has some abdominal pain, however, did not have any bowel movement. PHYSICAL EXAMINATION: Blood pressure 114/75 with a pulse of 78, temperature 98.3. She is 96% on room air. General description is a middle aged female lying in bed in no distress. Respiratory system: Unlabored breathing. Clear to auscultation anteriorly. Heart S1, S2. Regular rate and rhythm. ABDOMEN: Soft, no tenderness. LABS: Hemoglobin is 10.2, white count 5.8 with a BUN of 9, creatinine 0.40. Blood and urine has been negative. DIAGNOSTIC IMPRESSION AND PLAN: Patient admitted to the hospital with abdominal pain. No nausea, vomiting and diarrhea in this patient who did have a history of recurrent C difficile colitis. However, stool for C difficile is negative. She did have a positive UA and the patient clinically responding to the Rocephin, plan to finish therapy with a short course of oral Ceftin. Monitor clinical course closely. Advised to increase yogurt and probiotic intake. Continue supportive care. MMODL / IJN: [id number] /
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
[2019-03-09] MEDS: ONDANSETRON 4 MG/2 ML VIAL IVP PRN (15:41)
--- NOTE | 2019-03-09 20:04 | P.PN ---
Subjective Progress Note Date: 03/09/19 Principal diagnosis: Liver lesion Patient reporting less abdominal pain and tolerating diet. No nausea or vomiting reported. Objective - Vital Signs Vital signs: Vital Signs Temp 99.0 F 03/09/19 19:22 Pulse 87 03/09/19 19:22 Resp 18 03/09/19 19:22 BP 113/64 03/09/19 19:22 Pulse Ox 93 L 03/09/19 19:22 Intake & Output 03/09/19 03/09/19 03/10/19 06:59 18:59 06:59 Intake Total 500 1180 Balance 500 1180 Weight 61.235 kg Intake: IV 400 Sodium Chloride 0.9% 1, 400 000 ml @ 50 mls/hr IV . Q20H [facility] Rx#:[id number] Intake, IV Titration 500 Amount Sodium Chloride 0.9% 1, 500 000 ml @ 50 mls/hr IV . Q20H [facility] Rx#:[id number] Oral 780 Other: # Voids 2 3 - Exam On physical examination, patient appears comfortable in no apparent distress. HEAD: Normocephalic, atraumatic. EYES: No scleral icterus. No conjunctival injection. MOUTH: No lesions, tongue midline. NECK: Trachea midline, no gross abnormalities. CHEST: Clear to auscultation with no wheezing or rhonchi appreciated. HEART: Regular rate and rhythm. ABDOMEN: Soft, obese. Bowel sounds are positive. No organomegaly. No guarding or rigidity. EXTREMITIES: No pedal edema. SKIN: No rashes, no jaundice. NEUROLOGIC: Alert and oriented x3. No focal deficits. - Labs CBC & Chem 7: 03/09/19 07:52 03/09/19 07:52 Labs: Abnormal Lab Results - Last 24 Hours (Table) 03/09/19 03/09/19 Range/Units 07:52 07:52 MCHC 30.9 L (31.0-37.0) g/dL RDW 16.0 H (11.5-15.5) % Myelocytes # (Manual) 0.05 H (0) k/uL Chloride 96 L (98-107) mmol/L Carbon Dioxide 37 H (22-30) mmol/L Creatinine 0.43 L (0.52-1.04) mg/dL Microbiology - Last 24 Hours (Table) 03/05/19 20:45 Blood Culture - Preliminary Blood No Growth after 72 hours Assessment and Plan (1) Liver lesion, right lobe Narrative/Plan: 63-year-old female with multiple medical comorbidities, and a reported history of hepatitis C treatment kell secondary to blood transfusions in the late 70s and 80s was found to have an incidental right hepatic lobe lesion on computed tomography scan and confirmed on ultrasound. Laboratory evaluation including platelet count, liver enzymes and INR are not consistent with chronic liver disease. HCC in the absence of chronic liver disease it is unlikely, however further investigation with viral studies and contrast enhanced CT or MRI recommended for further evaluation of liver lesion. Current Visit: Yes Status: Acute Code(s): K76.9 - LIVER DISEASE, UNSPECIFIED SNOMED Code(s): 106341710 (2) Diarrhea Current Visit: No Status: Acute Code(s): R19.7 - DIARRHEA, UNSPECIFIED SNOMED Code(s): 67602289 Plan: Supportive care Okay for diet Infectious disease service is following, defer treatment of possible recurrent C. diff to their service We'll order laboratory evaluation for hepatitis C as well as AFP, pending Patient will need repeat imaging either with contrast-enhanced CT or MRI of the abdomen, either on this hospitalization or after discharge Continue to monitor CBC, CMP Thank you for allowing us to participate in the care of the patient we will continue to follow
[2019-03-09] MEDS: CHOLECALCIFEROL 1,000 UNIT TAB PO SCH (20:12)
[2019-03-09] MEDS: MONTELUKAST 10 MG TAB PO SCH (20:12)
[2019-03-09] MEDS: PRAMIPEXOLE 0.5 MG TAB PO SCH (20:12)
[2019-03-09] MEDS: DILTIAZEM CD 240 MG CAP.ER.24H PO SCH (20:12)
[2019-03-09] MEDS: metroNIDAZOLE 500 MG TAB PO SCH (21:30)
[2019-03-09] MEDS: MELATONIN 5 MG TABLET PO SCH (21:31)
[2019-03-09] MEDS: ALPRAZolam 0.25 MG TAB PO PRN (21:32)
[2019-03-10] MEDS: HYDROmorphone 1 MG/ML 1 ML SYRINGE IVP PRN ×2 (00:21→05:43)
[2019-03-10 02:07] VITALS: RESP 16
[2019-03-10] MEDS: IPRATROPIUM-ALBUTEROL 3 ML NEB INHALATION PRN ×3 (03:30→12:15)
[2019-03-10] MEDS: HYDROcodone/APAP 10-325MG 1 EACH TAB PO PRN ×2 (03:48→09:51)
[2019-03-10 08:12] LABS: Anisocytosis Slight; HCT 38.7 % (34.0-46.0); HGB 11.8 gm/dL (11.4-16.0); Hypochromasia Moderate; MCHC 30.5 g/dL (31.0-37.0); Mean Platelet Volume 7.7; Platelet Count 267 k/uL (150-450); RBC 4.07 m/uL (3.80-5.40); WBC 5.7 k/uL (3.8-10.6)
[2019-03-10 08:21] LABS: ALT 21 U/L (9-52); AST 21 U/L (14-36); African American GFR (CKD) >90 (>60 ml/min/1.73 sqM); Albumin 3.9 g/dL (3.5-5.0); Alkaline Phosphatase 62 U/L (38-126); Anion Gap 6 mmol/L; Blood Urea Nitrogen 14 mg/dL (7-17); Calcium 9.4 mg/dL (8.4-10.2); Carbon Dioxide 38 mmol/L (22-30); Chloride 94 mmol/L (98-107); Glucose 88 mg/dL (74-99); Potassium 4.6 mmol/L (3.5-5.1); Sodium 138 mmol/L (137-145); Total Bilirubin 0.4 mg/dL (0.2-1.3); Total Protein 6.9 g/dL (6.3-8.2)
[2019-03-10] MEDS: FLUTICASONE 110 MCG INHALER INHALATION SCH (08:44)
[2019-03-10] MEDS: ONDANSETRON 4 MG/2 ML VIAL IVP PRN (09:09)
[2019-03-10] MEDS: metroNIDAZOLE 500 MG TAB PO SCH (09:11)
[2019-03-10] MEDS: PANTOPRAZOLE 40 MG TABLET PO SCH (09:11)
[2019-03-10] MEDS: ENOXAPARIN 40 MG/0.4 ML SYRINGE SQ SCH (09:12)
[2019-03-10] MEDS: FUROSEMIDE 40 MG TAB PO SCH (09:22)
[2019-03-10] MEDS: ASCORBIC ACID 500 MG TAB PO SCH (09:22)
[2019-03-10] MEDS: METHIMAZOLE 5 MG TAB PO SCH (09:22)
--- NOTE | 2019-03-10 12:21 | P.DS ---
Providers Date of admission: 03/07/19 15:09 Expected date of discharge: 03/10/19 Attending physician: Ning Lock Consults: 03/06/19 10:00 Consult Physician Routine Consulting Provider: Christiano Ferrell Consult Reason/Comments: established patient COPD Do you want consulting provider notified?: Yes Consult Physician Routine Consulting Provider: Grisel Valdez Consult Reason/Comments: diarrhea, pyelonephritis Do you want consulting provider notified?: Yes 03/07/19 14:07 Consult Physician Routine Consulting Provider: Fausto Hardy Consult Reason/Comments: Liver lesion Do you want consulting provider notified?: Yes Primary care physician: Ning Hayde [facility] Course: Discharge diagnosis 1. Abdominal pain with diarrhea. C. diff negative. Lipase 15. CT of abdomen completed showing correlation for colitis there may be underlining gastritis. Infectious disease services have been consulted. Blood culture negative. Per infectious disease patient will be DC'd on Flagyl. 2. Urinary tract infection. Patient started on Rocephin urine culture ordered. Patient will be DC'd on Ceftin for infectious disease 3. Indeterminate hypodensity within the right lobe of the liver ultrasound of liver ordered. Ultrasound of the liver completed showing right hepatic lobe redemonstrated. There is 1.8 cm hyperechoic lesion right hepatic lobe may correspond lesion. Hyper echoic appearance would suggest benign hemangioma but presence of new lesions concerning compared to old study. Advise follow-up liver protocol ct or MRI to more definitively evaluate. Discussed case with GI services patient to follow-up outpatient for outpatient MRI or computed tomography scan 4. Chronic hypoxic respiratory failure. Maintained on home O2. Pulmonary services have been consulted 5. History of congestive heart failure 6. History of C. diff colitis. 7. History of chronic back pain 8. History of hyperthyroidism patient maintained on Tapazole 9. indeterminate left ovarian lesion seen on computed tomography scan. Patient to follow-up PCP for further workup Hospital course This is a 63-year-old female patient presents with complaints of abdominal pain with diarrhea. Patient was recently admitted and treated for C. diff. Patient reports that she was DC'd home on antibiotics completed treatment and did have improvement. Patient reports then she became constipated and did not have a bowel movement for multiple days. She reports that when she did start she had multiple loose stools, foul-smelling. Patient also reports that she's been having burning with urination and pain. Patient has past medical history of coronary artery disease, paroxysmal atrial fibrillation, heart failure, COPD, GERD, hypertension, liver disease, myocardial infarction, MVP, osteoarthritis, anxiety depression and PTSD. CT of abdomen and pelvis completed showing correlation for colitis. There may be underlying gastritis. Into determinate hypodensity within the right lobe of the liver anterior determinate cystic left ovarian lesion. WBC elevated at 21.3. UA positive for urinary tract infection. Urine culture ordered patient started on Rocephin. Infectious disease and pulmonary services have been consulted. Liver ultrasound ordered. At this time patient denies chest pain or shortness of breath. Patient is complaining of abdominal pain. Patient denies any nausea or vomiting. On 03/07/2019 patient is alert and oriented 3. Patient reports she has not had a bowel movement throughout the night. White blood cell has responded to antibiotics. WBC 5.6. At this time patient denies chest pain or shortness. Patient reports she has been able to eat. Patient denies any urinary burning or frequency On 03/08/2019 patient was seen and examined on the medical floor she is alert and oriented 3 in no apparent distress she is still complaining of some abdominal discomfort but improved since yesterday there is no fever no chills no headache or dizziness no chest pain no shortness of breath no cough no nausea or vomiting no diarrhea and no urinary symptoms On 03/10/2019 patient is alert and oriented 3. Discussed case with GI services. Patient has been cleared for discharge. Patient to follow-up outpatient for outpatient MRI or computed tomography scan to follow-up with liver lesion. Patient also cleared for discharge from infectious disease. Patient will be DC'd on Ceftin and Flagyl. This time patient denies any chest pain or shortness breath. Patient denies nausea vomiting or diarrhea. Patient denies any burning frequency I performed an examination of the patient and discussed their management with the Nurse Practitioner. I have reviewed the Nurse Practitioner's notes and agree with the documented findings and plan of care Patient Condition at Discharge: Stable Plan - Discharge Summary Discharge Rx Participant: Yes New Discharge Prescriptions: New Cefuroxime Axetil [Ceftin] 500 mg PO BID 7 Days #14 tab metroNIDAZOLE [Flagyl] 500 mg PO TID #21 tab Continue Pramipexole [Mirapex] 0.5 mg PO HS Cholecalciferol [Vitamin D3 (25 Mcg = 1000 Iu)] 2,000 unit PO HS Omeprazole 20 mg PO BID Beclomethasone Dipropionate [Qvar 80 mcg] 2 puff INHALATION RT-BID Montelukast [Singulair] 10 mg PO HS #30 tab Ipratropium-Albuterol Nebulize [Duoneb 0.5 mg-3 mg/3 ml Soln] 3 ml INHALATION RT-QID PRN PRN Reason: Shortness Of Breath HYDROcodone/APAP 10-325MG [[place] 10-325] 1 tab PO Q6H PRN #12 tab PRN Reason: Pain Melatonin 10 mg PO HS ALPRAZolam [Xanax] 0.25 mg PO Q8HR PRN 3 Days #9 tab PRN Reason: Anxiety Albuterol Inhaler [Ventolin Hfa Inhaler] 1 - 2 puff INHALATION RT-Q6H PRN PRN Reason: Shortness Of Breath Ascorbic Acid [Vitamin C] 1,000 mg PO DAILY Fluticasone Nasal Era [Flonase Nasal Era] 2 spray EA NOSTRIL DAILY PRN #1 bottle PRN Reason: Allergy Symptoms Diltiazem Cd [Cardizem CD] 240 mg PO DAILY 30 Days #30 cap.er.24h Furosemide [Lasix] 40 mg PO DAILY 30 Days #30 tab Methimazole [Tapazole] 5 mg PO DAILY 30 Days #30 tab Discharge Medication List Pramipexole [Mirapex] 0.5 mg PO HS 09/28/15 [History] Cholecalciferol [Vitamin D3 (25 Mcg = 1000 Iu)] 2,000 unit PO HS 02/02/16 [History] Omeprazole 20 mg PO BID 02/02/16 [History] Beclomethasone Dipropionate [Qvar 80 mcg] 2 puff INHALATION RT-BID 11/14/16 [History] Montelukast [Singulair] 10 mg PO HS #30 tab 02/12/17 [Rx] Ipratropium-Albuterol Nebulize [Duoneb 0.5 mg-3 mg/3 ml Soln] 3 ml INHALATION RT-QID PRN 05/31/18 [History] HYDROcodone/APAP 10-325MG [[place] 10-325] 1 tab PO Q6H PRN #12 tab 06/20/18 [Rx] Melatonin 10 mg PO HS 07/03/18 [History] ALPRAZolam [Xanax] 0.25 mg PO Q8HR PRN 3 Days #9 tab 07/12/18 [Rx] Albuterol Inhaler [Ventolin Hfa Inhaler] 1 - 2 puff INHALATION RT-Q6H PRN [History] Ascorbic Acid [Vitamin C] 1,000 mg PO DAILY 11/09/18 [History] Fluticasone Nasal Era [Flonase Nasal Era] 2 spray EA NOSTRIL DAILY PRN #1 bottle 11/12/18 [Rx] Diltiazem Cd [Cardizem CD] 240 mg PO DAILY 30 Days #30 cap.er.24h 02/14/19 [Rx] Furosemide [Lasix] 40 mg PO DAILY 30 Days #30 tab 02/14/19 [Rx] Methimazole [Tapazole] 5 mg PO DAILY 30 Days #30 tab 02/14/19 [Rx] Cefuroxime Axetil [Ceftin] 500 mg PO BID 7 Days #14 tab 03/10/19 [Rx] metroNIDAZOLE [Flagyl] 500 mg PO TID #21 tab 03/10/19 [Rx] Follow up Appointment(s)/Referral(s): Ning Lock MD [Primary Care Provider] - 1-2 days Grisel Valdez MD [STAFF PHYSICIAN] - 1 Week Fausto Hardy MD [STAFF PHYSICIAN] - 1 Week Activity/Diet/Wound Care/Special Instructions: Activity as tolerated Diet regular Discharge Disposition: HOME SELF-CARE
[2019-03-10 13:03] VITALS: BP 101/68; PULSE 73; TEMP 98.2
[2019-03-10 13:09] LABS: Basophils # (M) 0.06 k/uL (0-0.2); Eosinophils # (M) 0.51 k/uL (0-0.7); Monocytes # (M) 0.68 k/uL (0-1.0); Neutrophils % (M) 43 %; Nucleated Red Blood Cells 0 /100 WBC (0-0); Total Cells Counted 100
[2019-03-12 11:36] LABS: HCV Quant Log 3.51 (<1.08)
--- NOTE | 2019-03-24 08:05 | P.PN ---
Subjective Progress Note Date: 03/09/19 Principal diagnosis: Stable COPD, chronic hypoxic respiratory failure, history of severe C. difficile colitis, diffuse colitis and gastritis, urinary tract infection, congestive he art failure, chronic low back pain, 03/09/2019, patient seen eval reexamined during the rounds reviewed medications reviewed care plan discussed with the staff at length 03/07/2019, patient seen and evaluated examined during the rounds doing well denies any chest pain shortness of breath is stable no cough is present patient is on bronchodilators and supplemental oxygen off of his steroids, on an tibiotics or urinary tract infection This is a 63-year-old female patient presents with complaints of abdominal pain with diarrhea. Patient was recently admitted and treated for C. diff. patient has stable COPD and emphysema she is on home oxygen as well She was DC'd home on antibiotics completed treatment and did have improvement, she became constipated and did not have a bowel movement for multiple days then suddenly she had multiple loose stools, foul-smelling. Patient also reports that she's been having burning with urination and pain. Patient has past medical history of coronary artery disease, paroxysmal atrial fibrillation, heart failure, COPD, GERD, hypertension, liver disease, myocardial infarction, MVP, osteoarthritis, anxiety depression and PTSD. CT of abdomen and pelvis completed showing correlation for colitis. There may be underlying gastritis. Into determinate hypodensity within the right lobe of the liver anterior determinate cystic left ovarian lesion. WBC elevated at 21.3. UA positive for urinary tract infection. Urine culture ordered patient started on Rocephin. As far as her breathing is concerned she appears to be stable on supplemental oxygen denies any sputum production mild intermittent cough is present Objective - Vital Signs Vital signs: Vital Signs Temp 97.9 F 03/09/19 07:16 Pulse 82 03/09/19 11:30 Resp 15 03/09/19 07:16 BP 117/72 03/09/19 07:16 Pulse Ox 95 03/09/19 07:41 Intake & Output 03/08/19 03/09/19 03/09/19 18:59 06:59 18:59 Intake Total 680 500 600 Balance 680 500 600 Intake: Intake, IV Titration 500 Amount Sodium Chloride 0.9% 1, 500 000 ml @ 50 mls/hr IV . Q20H [facility] Rx#:[id number] Oral 680 600 Other: # Voids 3 2 - Exam Constitutional General appearance: average body habitus, cooperative, disheveled - EENT Eyes: EOMI, PERRLA, poor dentition, normal appearance ENT: normal oropharynx Ears: bilateral: normal - Neck Neck: normal ROM Carotids: bilateral: upstroke normal, bruit absent Thyroid: bilateral: normal size - Respiratory Respiratory: bilateral: diminished, prolonged expiration, negative: CTA, dullness, rales, rhonchi, wheezing - Cardiovascular Rhythm: regular Heart sounds: normal: S1, S2 - Gastrointestinal General gastrointestinal: decreased bowel sounds, distended, soft - Neurologic Neurologic: CNII-XII intact - Musculoskeletal Musculoskeletal: gait normal, generalized weakness, strength equal bilaterally - Psychiatric Psychiatric: A&O x's 3, appropriate affect, intact judgment & insight - Labs CBC & Chem 7: 03/10/19 07:42 03/10/19 07:42 Labs: Abnormal Lab Results - Last 24 Hours (Table) 03/09/19 03/09/19 Range/Units 07:52 07:52 MCHC 30.9 L (31.0-37.0) g/dL RDW 16.0 H (11.5-15.5) % Myelocytes # (Manual) 0.05 H (0) k/uL Chloride 96 L (98-107) mmol/L Carbon Dioxide 37 H (22-30) mmol/L Creatinine 0.43 L (0.52-1.04) mg/dL Microbiology - Last 24 Hours (Table) 03/05/19 20:45 Blood Culture - Preliminary Blood No Growth after 72 hours Assessment and Plan Assessment: Stable COPD Stable hypoxic respiratory failure on home oxygen Abdominal pain with diarrhea C. diff is negative have ongoing colitis and gastritis UTI Congestive heart failure History of C. difficile colitis Chronic low back pain Chronic hypothyroidism Plan: Continue gentle rehydration Antibiotics for urinary tract infection but recommend to use it for minimal days as possible I'll avoid steroids Continue bronchodilators DVT prophylaxis Continue oxygen Further recommendations pending plan of care as per clinical response of patient Time with Patient: Greater than 30
== END 2019-03-10 14:10 | disposition home or self-care (01) ==
LOC: EC 17:37 → UNDOADMOB 20:56 → 4SSUR 20:56 → INTOOBSV 03-07 15:09 → OBSVTOIN 03-07 15:09 → 6PED 03-10 07:36 → 4SSUR 03-10 07:36 → UNDODISIN 03-10 14:10
PROVIDERS: ADMIT Internal Medicine; ATTEND Internal Medicine
DX: K52.9 Noninfective gastroenteritis and colitis, unspecified (principal); N39.0 Urinary tract infection, site not specified; J96.11 Chronic respiratory failure with hypoxia; Z99.81 Dependence on supplemental oxygen; I11.0 Hypertensive heart disease with heart failure; I50.9 Heart failure, unspecified; G89.29 Other chronic pain; E05.90 Thyrotoxicosis, unspecified without thyrotoxic crisis or storm; K59.00 Constipation, unspecified; I25.10 Atherosclerotic heart disease of native coronary artery without angina pectoris; I48.0 Paroxysmal atrial fibrillation; K21.9 Gastro-esophageal reflux disease without esophagitis; I25.2 Old myocardial infarction; M19.90 Unspecified osteoarthritis, unspecified site; F41.9 Anxiety disorder, unspecified; F32.9 Major depressive disorder, single episode, unspecified; F43.10 Post-traumatic stress disorder, unspecified; I34.1 Nonrheumatic mitral (valve) prolapse; M54.5 Low back pain; K58.0 Irritable bowel syndrome with diarrhea; J43.9 Emphysema, unspecified; E03.9 Hypothyroidism, unspecified; K76.9 Liver disease, unspecified; N83.202 Unspecified ovarian cyst, left side; Z98.49 Cataract extraction status, unspecified eye; Z86.19 Personal history of other infectious and parasitic diseases; Z90.49 Acquired absence of other specified parts of digestive tract; Z87.891 Personal history of nicotine dependence; Z79.899 Other long term (current) drug therapy; Z79.51 Long term (current) use of inhaled steroids; Z85.41 Personal history of malignant neoplasm of cervix uteri; Z86.010 Personal history of colon polyps; Z88.1 Allergy status to other antibiotic agents; Z88.2 Allergy status to sulfonamides; Z88.8 Allergy status to other drugs, medicaments and biological substances; Z82.49 Family history of ischemic heart disease and other diseases of the circulatory system; Z80.3 Family history of malignant neoplasm of breast; Z80.8 Family history of malignant neoplasm of other organs or systems; Z80.0 Family history of malignant neoplasm of digestive organs; Z80.1 Family history of malignant neoplasm of trachea, bronchus and lung; Z81.1 Family history of alcohol abuse and dependence; Z83.79 Family history of other diseases of the digestive system
CPT/HCPCS: 96365; 96372 ×5; 96376 ×5; 96361; 96375; 99285; 36415; 94640 ×11; 94760 ×2; 87522; 80053 ×6; 87902; 83605; 83690; 85025 ×6; 81001; 87040; 87324; 82105; 87086; 74018; 76705; 74177; G0378 ×6; J2270; J2405 ×6; J1650 ×5; J0696 ×6; J1170 ×6; Q9967; 96374

== ENCOUNTER 2019-03-21 21:48 | Inpatient (IN) | payer OTHER ==
[2019-03-21] MEDS ORDERED: SODIUM CHLORIDE 0.9% 1,000 ML IV STA (22:49)
[2019-03-21] MEDS ORDERED: ONDANSETRON 4 MG/2 ML VIAL IVP STA (22:49)
[2019-03-21] MEDS ORDERED: MORPHINE SULFATE 4 MG/ML SYRINGE IV STA (22:49)
[2019-03-21] MEDS ORDERED: ACETAMINOPHEN TAB 325 MG TAB PO STA (22:53)
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
[2019-03-22 00:05] LABS: Anisocytosis Slight; Basophils # (A) 0.1 k/uL (0-0.2); Basophils % (A) 1 %; Eosinophils # (A) 0.5 k/uL (0-0.7); Eosinophils % (A) 2 %; HCT 41.1 % (34.0-46.0); HGB 12.8 gm/dL (11.4-16.0); Lymphocytes # (A) 0.7 k/uL (1.0-4.8); Lymphocytes % (A) 3 %; MCH 29.1 pg (25.0-35.0); MCHC 31.2 g/dL (31.0-37.0); MCV 93.3 fL (80.0-100.0); Monocytes # (A) 0.7 k/uL (0-1.0); Monocytes % (A) 3 %; Neutrophils # (A) 18.7 k/uL (1.3-7.7); Neutrophils % (A) 89 %; Platelet Count 248 k/uL (150-450); WBC 20.9 k/uL (3.8-10.6)
[2019-03-22 00:08] LABS: ALT 14 U/L (9-52); AST 24 U/L (14-36); African American GFR (CKD) >90 (>60 ml/min/1.73 sqM); Albumin 4.2 g/dL (3.5-5.0); Alkaline Phosphatase 62 U/L (38-126); Anion Gap 6 mmol/L; Blood Urea Nitrogen 16 mg/dL (7-17); Calcium 9.4 mg/dL (8.4-10.2); Carbon Dioxide 38 mmol/L (22-30); Chloride 91 mmol/L (98-107); Glucose 94 mg/dL (74-99); Magnesium 1.8 mg/dL (1.6-2.3); Potassium 4.1 mmol/L (3.5-5.1); Sodium 135 mmol/L (137-145); Total Bilirubin 0.7 mg/dL (0.2-1.3); Total Protein 7.3 g/dL (6.3-8.2)
--- NOTE | 2019-03-22 00:56 | CT ---
EXAM: CT Abdomen and Pelvis With Intravenous Contrast CLINICAL HISTORY: pain TECHNIQUE: Axial computed tomography images of the abdomen and pelvis with intravenous contrast. CTDI is 0.085, 0.085, 6.2, 6.5 mGy and DLP is 611. 4 mGy-cm. This CT exam was performed using one or more of the following dose reduction techniques: automated exposure control, adjustment of the mA and/or kV according to patient size, and/or use of iterative reconstruction technique. COMPARISON: CT abdomen and pelvis dated 03/05/2019 FINDINGS: Lung bases: Centrilobular emphysema with mild cylindrical bronchiectasis. Heart: Coronary artery calcifications. ABDOMEN: Liver: Unremarkable. Gallbladder and bile ducts: Mild prominence of the ducts likely segment prior cholecystectomy. Pancreas: Unremarkable. Spleen: Unremarkable. Adrenals: Unremarkable. Kidneys and ureters: Nonobstructing calculi within left kidney. Cysts within both kidneys. No hydronephrosis. Stomach and bowel: Multifocal areas of moderate wall thickening of the colon suggesting nonspecific colitis. This appears improved as compared to the prior. PELVIS: Appendix: No findings to suggest acute appendicitis. Bladder: Unremarkable. Reproductive: Left ovarian cyst measuring up to 3.4 cm changes unchanged. Recommend annual sonogram. ABDOMEN and PELVIS: Intraperitoneal space: Unremarkable. Bones/joints: No acute fracture. No dislocation. Scoliosis. Soft tissues: Unremarkable. Vasculature: Unremarkable. No abdominal aortic aneurysm. Lymph nodes: Unremarkable. Other findings: Low-density lesion within the pedicle 150 mm, which is nonspecific. IMPRESSION: 1. Multifocal areas of moderate wall thickening of the colon suggesting nonspecific colitis. This appears improved as compared to the prior. 2. Left ovarian cyst measuring up to 3.4 cm changes unchanged. Recommend annual sonogram.
[2019-03-22 02:04] LABS: Appearance,Urine Clear (Clear); Bilirubin,Urine Negative (Negative); Blood,Urine Negative (Negative); Color,Urine Yellow; Glucose,Urine (UA) Negative (Negative); Ketones,Urine Negative (Negative); Leukocyte Esterase,Urine Negative (Negative); Nitrite,Urine Negative (Negative); PH, Urine 7.5 (5.0-8.0); Protein,Urine Trace (Negative)
[2019-03-22 02:11] LABS: Specific Gravity,Urine >1.050 (1.001-1.035)
[2019-03-22] MEDS ORDERED: cefTRIAXone IN SWFI 1,000 MG/10 ML SYRINGE IVP STA (02:57)
[2019-03-22] MEDS ORDERED: IBUPROFEN 600 MG TAB PO STA (03:00)
[2019-03-22] MEDS ORDERED: NALOXONE 0.4 MG/ML 1 ML VIAL IV PRN (03:02)
[2019-03-22] MEDS ORDERED: ACETAMINOPHEN TAB 325 MG TAB PO PRN (03:02)
[2019-03-22] MEDS: SODIUM CHLORIDE 0.9% 1,000 ML IV SCH ×2 (03:29→16:55)
--- NOTE | 2019-03-22 03:29 | XR ---
EXAM: XR Chest, 2 Views CLINICAL HISTORY: Pain TECHNIQUE: Frontal and lateral views of the chest. COMPARISON: Chest x-ray dated 02/11/2018 FINDINGS: Lungs: Unremarkable. No consolidation. Pleural space: Unremarkable. No pneumothorax. Heart: Unremarkable. No cardiomegaly. Mediastinum: Unremarkable. Bones/joints: Unremarkable. IMPRESSION: Normal chest x-rays.
[2019-03-22] MEDS ORDERED: VANCOMYCIN ORAL SOLUTION 250 MG/5 ML BOTTLE PO SCH (04:00)
[2019-03-22] MEDS ORDERED: SODIUM CHLORIDE 0.9% 500 ML 500 ML IV STA (04:02)
[2019-03-22] MEDS: MORPHINE SULFATE 4 MG/ML SYRINGE IV PRN ×2 (05:56→12:38)
[2019-03-22] MEDS ORDERED: FLUTICASONE 50MCG/SPRAY NASAL 16GM EA NOSTRIL PRN (06:58)
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
[2019-03-22] MEDS: FLUTICASONE 110 MCG INHALER INHALATION SCH ×3 (07:41→20:32)
[2019-03-22] MEDS: IPRATROPIUM-ALBUTEROL 3 ML NEB INHALATION PRN ×4 (07:41→20:32)
[2019-03-22] MEDS: METHIMAZOLE 5 MG TAB PO SCH (08:38)
[2019-03-22] MEDS: PANTOPRAZOLE 40 MG TABLET PO SCH (08:38)
[2019-03-22] MEDS: HEPARIN SODIUM,PORCINE 5,000 UNIT/ML 1 ML VIAL SQ SCH ×2 (08:39→15:19)
[2019-03-22] MEDS: DILTIAZEM CD 240 MG CAP.ER.24H PO SCH (09:19)
[2019-03-22] MEDS: metroNIDAZOLE-NS PMX 500 MG in SALINE 1 100ML.BAG IVPB SCH ×3 (11:35→22:34)
--- NOTE | 2019-03-22 12:05 | CONS ---
CONSULTATION DATE OF SERVICE: March 22, 2019. REQUESTING PHYSICIAN: Dr. Lock. REASON FOR CONSULTATION: Abdominal pain/history of colitis. HISTORY OF PRESENT ILLNESS: The patient is a 63-year-old pleasant white female admitted to the hospital with diffuse abdominal pain that started getting worse for the last 4 days duration. The patient stated that she was just hospitalized 2 weeks ago for similar symptoms, she was complaining that she has chronic abdominal pain for almost 2 years duration. She was hospitalized several times in the last 2 years and was also diagnosed with recurrent C diff colitis. First episode was in 2017 and the 2nd episode was in January of 2019. Both of those times she was treated with Flagyl and was discharged home. She was recently admitted to hospital on March 05 for worsening abdominal pain but this time, stool was negative for C diff. She was treated with empiric antibiotics and was discharged home. The patient states that after she finished antibiotics she started having worsening abdominal discomfort associated with nausea, vomiting, and hence came into the emergency room yesterday. CT of the abdomen and pelvis done in the emergency room yesterday did show thickening in several areas of the colon suspicious for colitis. Surprisingly the patient does not have any diarrhea. In fact, she has 1 bowel movement today. No bowel movements since being in the hospital. She is back on empiric antibiotics with ceftriaxone and Flagyl and still remains symptomatic. The patient states that she was diagnosed with ulcerative colitis in the past, but is not very clear about the details. She recalls having an upper endoscopy as well as colonoscopy by Dr. Macedo several years ago but cannot recall the findings. She has not been on any maintenance medications related to ulcerative colitis. Hence, it is unclear if she was ever diagnosed with inflammatory bowel disease. PAST MEDICAL HISTORY: Significant for coronary artery disease, congestive heart failure, gastroesophageal reflux disease, mitral valve prolapse, degenerative joint disease, paroxysmal atrial fibrillation, chronic hepatitis C. PAST SURGICAL HISTORY: Cholecystectomy, , cervical surgery, cataract surgery. FAMILY HISTORY: Mother had coronary artery disease. Father had coronary artery disease/[place]. HOME MEDICATIONS: Include Mirapex, vitamin D3, omeprazole, Singulair, DuoNeb, [place], melatonin, Xanax, Ventolin, vitamin C, Flonase, Cardizem, Lasix, Tapazole, Ceftin, Flagyl that she just finished 3 days ago. ALLERGIES: CIPRO, SULFA, TRICYCLIC . SOCIAL HISTORY: Remote history of smoking. No alcohol use. FAMILY HISTORY: As mentioned above. REVIEW OF SYSTEMS: Cardiopulmonary: No chest pain, shortness of breath. Genitourinary: No dysuria or hematuria. Musculoskeletal unremarkable. Skin unremarkable. Endocrine unremarkable. Psychiatric unremarkable. Neurology unremarkable. ENT vision unremarkable. Constitutional: No recent weight loss. No fever, chills, night sweats. PHYSICAL EXAMINATION: She appears comfortable. No apparent distress. VITAL SIGNS: Stable. Blood pressure is 103/63, pulse is 76, temperature 101.7. HEENT examination unremarkable. Conjunctivae pink. Sclerae anicteric. Oral cavity no lesions. NECK: No JVD. No lymph node enlargement. CHEST: Clear to auscultation. HEART: Regular rate and rhythm. ABDOMEN: Soft, it was slightly tender diffusely all over the abdomen. EXTREMITIES: No pedal edema. Skin no rashes. NEUROLOGIC: Alert and oriented x3. No focal deficits. LABS: From from yesterday: WBC is 20.9, hemoglobin is 12.8, platelets are normal. Basic metabolic panel is within normal limits. Labs from last hospitalization showed a positive hepatitis C RNA by PCR confirming chronic hepatitis C infection. CT of the abdomen and pelvis done yesterday in the emergency room showed multifocal areas of moderate wall thickening of the colon suggestive of nonspecific colitis. Liver was unremarkable. IMPRESSION: 1. Diffuse abdominal pain for the last 2 years duration which has been progressively getting worse, requiring multiple hospitalizations for the last couple of years. She had 2 documented episodes of C diff colitis one in 2018 the last in January of 2019. Both times treated with Flagyl and discharged home. She had hospitalization 2 weeks ago for severe abdominal pain. CT scan showing thickening of the colon treated empirically with antibiotics and was discharged home, now back in the hospital again with similar symptoms. She now has some leukocytosis and CT of the abdomen and pelvis done in the emergency room last month again showed multifocal areas of colonic wall thickening suspicious for nonspecific colitis. She is on Ceftriaxone and Flagyl empirically and surprisingly has no diarrhea and hence stool studies could not be performed. 2. Chronic hepatitis C infection. Positive HCV RNA by PCR the last hospitalization. 3. History of irritable bowel syndrome. 4. Questionable history of ulcerative colitis. The patient states that she did have a colonoscopy several years ago but cannot remember the details. Not on any maintenance medications. RECOMMENDATIONS: 1. Continue with empiric antibiotics. 2. Clear liquid diet and advance as tolerated. 3. If she does not have any significant improvement in her symptoms in the next 24-48 hours we will consider an upper endoscopy as well as colonoscopy during this hospitalization. The plan was discussed with the patient. She is agreeable to it. Thank you for this consultation. CHRIS / MONICA: [id number] /
[2019-03-22] MEDS ORDERED: SODIUM CHLORIDE 0.9% 1,000 ML IV ONE (14:53)
--- NOTE | 2019-03-22 14:57 | P.PN ---
Progress Note - Text Progress Note Date: 03/22/19 Briefly this is a 63-year-old female that is admitted to sepsis with a white count of 21 thought to be presumed secondary to C. diff, however unable to receive a liquid stool sample has her stools or hardening up. She is continued on empiric IV antibiotics with Rocephin and Flagyl with plans for ID consultation. Urinalysis clear, chest x-ray also clear, blood cultures are pending. CT abdomen and pelvis showed multiple focal areas of bladder wall thickening of the colon suggesting nonspecific colitis. she reports severe pain in that the morphine isn't adequately controlling her discomfort, we will plan to change to Dilaudid. The patient remains slightly tachycardic we'll repeat at 1 L normal saline bolus and continue maintenance fluids the patient continues to be febrile with Tylenol ordered when necessary continue to follow her progress closely and follow-up recommendations from consultants.
[2019-03-22] MEDS: HYDROcodone/APAP 10-325MG 1 EACH TAB PO PRN ×2 (15:15→22:33)
[2019-03-22] MEDS: ONDANSETRON 4 MG/2 ML VIAL IVP PRN ×2 (15:47→20:54)
[2019-03-22] MEDS: HYDROmorphone 1 MG/ML 1 ML SYRINGE IVP PRN ×2 (16:50→20:50)
[2019-03-22] MEDS ORDERED: traMADol 50 MG TAB PO PRN (17:14)
[2019-03-22] MEDS: COLCHICINE 0.6 MG EACH PO SCH (18:53)
[2019-03-22] MEDS: MELATONIN 5 MG TABLET PO SCH (19:58)
[2019-03-22] MEDS: CHOLECALCIFEROL 1,000 UNIT TAB PO SCH (19:58)
[2019-03-22] MEDS: PRAMIPEXOLE 0.5 MG TAB PO SCH (19:58)
[2019-03-22] MEDS: MONTELUKAST 10 MG TAB PO SCH (19:58)
[2019-03-22 23:40] LABS: Aspergillus fumagatus IgE <0.10 kU/L
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
[2019-03-23] MEDS: IPRATROPIUM-ALBUTEROL 3 ML NEB INHALATION PRN ×7 (00:09→23:30)
[2019-03-23] MEDS: HEPARIN SODIUM,PORCINE 5,000 UNIT/ML 1 ML VIAL SQ SCH ×4 (00:26→19:24)
[2019-03-23] MEDS: HYDROmorphone 1 MG/ML 1 ML SYRINGE IVP PRN ×5 (01:05→19:08)
[2019-03-23] MEDS: SODIUM CHLORIDE 0.9% 1,000 ML IV SCH ×3 (01:06→22:33)
[2019-03-23] MEDS: HYDROcodone/APAP 10-325MG 1 EACH TAB PO PRN ×4 (05:57→22:27)
[2019-03-23 06:47] LABS: Basophils % (A) 0 %; Eosinophils # (A) 0.3 k/uL (0-0.7); Eosinophils % (A) 3 %; HCT 34.5 % (34.0-46.0); HGB 10.6 gm/dL (11.4-16.0); Hypochromasia Slight; Lymphocytes # (A) 1.3 k/uL (1.0-4.8); Lymphocytes % (A) 15 %; MCHC 30.6 g/dL (31.0-37.0); MCV 94.7 fL (80.0-100.0); Mean Platelet Volume 7.5; Monocytes # (A) 0.5 k/uL (0-1.0); Monocytes % (A) 5 %; Neutrophils # (A) 6.4 k/uL (1.3-7.7); Neutrophils % (A) 73 %; Platelet Count 185 k/uL (150-450); RBC 3.64 m/uL (3.80-5.40); RDW 15.2 % (11.5-15.5); WBC 8.7 k/uL (3.8-10.6)
[2019-03-23 06:58] LABS: ALT 14 U/L (9-52); AST 15 U/L (14-36); African American GFR (CKD) >90 (>60 ml/min/1.73 sqM); Albumin 2.9 g/dL (3.5-5.0); Alkaline Phosphatase 46 U/L (38-126); Anion Gap 7 mmol/L; Blood Urea Nitrogen 9 mg/dL (7-17); Calcium 8.2 mg/dL (8.4-10.2); Carbon Dioxide 28 mmol/L (22-30); Chloride 99 mmol/L (98-107); Glucose 62 mg/dL (74-99); Potassium 3.5 mmol/L (3.5-5.1); Sodium 134 mmol/L (137-145); Total Bilirubin 0.3 mg/dL (0.2-1.3); Total Protein 5.3 g/dL (6.3-8.2)
[2019-03-23] MEDS: metroNIDAZOLE-NS PMX 500 MG in SALINE 1 100ML.BAG IVPB SCH ×3 (07:56→22:21)
[2019-03-23] MEDS: COLCHICINE 0.6 MG EACH PO SCH (07:57)
[2019-03-23] MEDS: DILTIAZEM CD 240 MG CAP.ER.24H PO SCH (07:57)
[2019-03-23] MEDS: PANTOPRAZOLE 40 MG TABLET PO SCH (07:57)
[2019-03-23] MEDS: LORATADINE 10 MG TAB PO SCH (07:57)
[2019-03-23] MEDS: METHIMAZOLE 5 MG TAB PO SCH (07:58)
[2019-03-23] MEDS: FLUTICASONE 110 MCG INHALER INHALATION SCH ×2 (08:16→20:05)
--- NOTE | 2019-03-23 10:06 | PN ---
PROGRESS NOTE Patient is a 63-year-old pleasant white female admitted to hospital with severe abdominal pain for the last few days duration. She had multiple hospitalizations over the last 2 years for ongoing chronic abdominal pain and recurrent C diff colitis. She had an episode of C diff colitis last year and was treated appropriately and she had another episode in January of this year that was treated with Flagyl. She was admitted 10 days ago for the same symptoms, treated with antibiotics and was discharged home for possible infectious colitis. She is back again with the same symptoms of severe abdominal pain, but denies any diarrhea. CT scan showed multiple areas of thickening in the colon suspicious for colitis. There is questionable history of ulcerative colitis that was diagnosed in the past, but not on any maintenance medications. She had a fever during this hospitalization. Presently on broad-spectrum antibiotics and she continues to feel the same. She had 1 soft bowel movement this morning. No bleeding. Still has abdominal pain requiring narcotic pain medications. She was evaluated by Dr. Ramos yesterday. PHYSICAL EXAMINATION: She appears comfortable no apparent distress. VITAL SIGNS: Stable. Blood pressure is 134/78, pulse rate 94, temperature 99.2. HEENT: Examination unremarkable. Conjunctivae pink. Sclerae anicteric. Oral cavity, no lesions. NECK: No JVD or lymph node enlargement. CHEST: Clear to auscultation. HEART: Regular rate and rhythm. ABDOMEN: Soft. There was diffuse tenderness all over the abdomen, but no rebound or rigidity. Bowel sounds are positive. No organomegaly. EXTREMITIES: No pedal edema. SKIN: No rashes. NEURO: She is alert and oriented x3. No focal deficits. LABS: From today WBC 8.7, hemoglobin 10.6, platelets normal. Basic metabolic panel is within normal limits. Urinalysis was negative. IMPRESSION: 1. Chronic abdominal pain and history of recurrent C diff colitis, the last episode in January of this year, was treated with antibiotics, was hospitalized 10 days ago for the same symptoms, treated with Cipro and Flagyl and was discharged home and now back again with ongoing abdominal pain that has been progressively getting worse. CT of the abdomen during this hospitalization showed multiple areas of thickening in the colon suspicious for acute colitis. Questionable history of ulcerative colitis was diagnosed in the past. Presently on broad-spectrum antibiotics and continues to remain symptomatic. According to the patient, last EGD and colonoscopy were about 3-5 years ago, but cannot obtain the records. 2. Chronic obstructive pulmonary disease on home O2. Sees Dr. Chris Webster on outpatient basis. RECOMMENDATIONS: 1. Continue with broad-spectrum antibiotics. 2. Advance diet as tolerated. 3. Because of the ongoing symptoms, I recommended EGD and colonoscopy at this time, but patient wants to discuss with Dr. Webster and obtain pulmonary clearance prior to considering any endoscopy intervention at this time. 4. I agree with the plan and I will continue her current medications and we will follow her closely during the hospital stay. Thank you for this consultation. CHRIS / MONICA: [id number] /
--- NOTE | 2019-03-23 10:48 | P.PN ---
Subjective Progress Note Date: 03/23/19 Patient seen and examined at bedside, reports that her pain is better control with Dilaudid over morphine. Apparently had some looser stools earlier today sent for C. diff, patient tolerating clear liquid diet and amenable to advancing to regular diet today. Patient has been afebrile since approximately 3 PM yesterday. Leukocytosis also resolved overnight. The hemoglobin 10.6, down approximately 2 g. Continue to monitor Objective - Vital Signs Vital signs: Vital Signs Temp 99.2 F 03/23/19 07:00 Pulse 86 03/23/19 08:31 Resp 16 03/23/19 07:00 BP 134/78 03/23/19 07:00 Pulse Ox 95 03/23/19 07:00 Intake & Output 03/22/19 03/23/19 03/23/19 18:59 06:59 18:59 Intake Total 480 Balance 480 Intake: Oral 480 Other: Voiding Method Bedside Commode Toilet # Voids 3 - Exam Constitutional: No acute distress, conversant, pleasant Eyes: Anicteric sclerae, moist conjunctiva, no lid-lag, PERRLA ENMT: NC/AT,Oropharynx clear, no erythema, exudates Neck:Supple, FROM, no masses, or JVD, No carotid bruits; No thyromegaly Lungs: Clear to auscultation, Clear to percussion, Normal respiratory effort, no accessory muscle use Cardiovascular: Heart regular in rate and rhythm, No murmurs, gallops, or rubs no peripheral edema Abdominal: Soft Nontender, nom distended, no guarding, no rebound or rigidity, Normoactive bowel sounds No hepatomegaly, No splenomegaly, No palpable mass No abdominal wall hernia noted Skin: Normal temperature, tone, texture, turgor, No induration No subcutaneous nodules, No rash, lesions, No ulcers Extremities:No digital cyanosis No clubbing, Pedal pulses intact and symmetrical Radial pulses intact and symmetrical Normal gait and station, No calf tenderness Psychiatric: Alert and oriented to person, place and time, Appropriate affect Intact judgement Neuro: Muscles Strength 5/5 in all 4 extremities, Sensation to light touch grossly present throughout, Cranial nerves II-XII grossly intact. No focal sensory deficits - Labs CBC & Chem 7: 03/23/19 06:26 03/23/19 06:26 Labs: Abnormal Lab Results - Last 24 Hours (Table) 03/21/19 03/23/19 03/23/19 Range/Units 23:23 06:26 06:26 RBC 3.64 L (3.80-5.40) m/uL Hgb 10.6 L (11.4-16.0) gm/dL MCHC 30.6 L (31.0-37.0) g/dL Sodium 134 L (137-145) mmol/L Creatinine 0.27 L (0.52-1.04) mg/dL Glucose 62 L (74-99) mg/dL Calcium 8.2 L (8.4-10.2) mg/dL Total Protein 5.3 L (6.3-8.2) g/dL Albumin 2.9 L (3.5-5.0) g/dL IgE 136.00 H (0.00-114.00) IU/mL Microbiology - Last 24 Hours (Table) 03/22/19 03:25 Blood Culture - Preliminary Blood No Growth after 24 hours 03/21/19 23:10 Blood Culture - Preliminary Blood No Growth after 24 hours Assessment and Plan (1) Sepsis Narrative/Plan: * Presumed secondary to C. diff colitis * Leukocytosis of resolved and her fever has broken * C. diff sent this morning results are pending * Patient with history of recurrent infections appreciated ID recommendations serum IgE elevated * Continue empiric IV antibiotics with Rocephin and Flagyl Current Visit: Yes Status: Acute Code(s): A41.9 - SEPSIS, UNSPECIFIED ORGANISM SNOMED Code(s): 71171884 (2) Abdominal pain Narrative/Plan: * Patient seen by GI has a history of IBS, chronic hep C, and questionable history of UC * CT abdomen and pelvis suggesting multiple focal areas of bladder wall thickening of the colon suggesting nonspecific colitis * Continue with supportive management for pain * Continue clear liquid diet was advanced to regular diet Current Visit: Yes Status: Acute Code(s): R10.9 - UNSPECIFIED ABDOMINAL PAIN SNOMED Code(s): 89289809 (3) Acute colitis Narrative/Plan: * Treatment as above Current Visit: No Status: Acute Code(s): K52.9 - NONINFECTIVE GASTROENTERITIS AND COLITIS, UNSPECIFIED SNOMED Code(s): 15536193 (4) COPD (chronic obstructive pulmonary disease) Narrative/Plan: * Chronic respiratory failure on 2 L nasal cannula at baseline * Emphysema with cylindrical bronchiectasis * Continue supplemental oxygen and breathing treatments Current Visit: Yes Status: Acute Code(s): J44.9 - CHRONIC OBSTRUCTIVE PULMONARY DISEASE, UNSPECIFIED SNOMED Code(s): 28957217 Plan: Disposition * Continue to follow consultants recommendations * Patient will be transferred back to Dr. Lock in the morning * Anticipated discharge 1-2 days
[2019-03-23] MEDS: ONDANSETRON 4 MG/2 ML VIAL IVP PRN (11:44)
[2019-03-23] MEDS: PRAMIPEXOLE 0.5 MG TAB PO SCH (22:20)
[2019-03-23] MEDS: MONTELUKAST 10 MG TAB PO SCH (22:20)
[2019-03-23] MEDS: MELATONIN 5 MG TABLET PO SCH (22:20)
[2019-03-23] MEDS: CHOLECALCIFEROL 1,000 UNIT TAB PO SCH (22:20)
[2019-03-23] MEDS: ALPRAZolam 0.25 MG TAB PO PRN (22:22)
[2019-03-24] MEDS: HEPARIN SODIUM,PORCINE 5,000 UNIT/ML 1 ML VIAL SQ SCH ×3 (00:35→16:15)
[2019-03-24] MEDS: HYDROmorphone 1 MG/ML 1 ML SYRINGE IVP PRN ×6 (00:36→20:21)
[2019-03-24] MEDS: IPRATROPIUM-ALBUTEROL 3 ML NEB INHALATION PRN ×6 (02:50→23:25)
[2019-03-24] MEDS: HYDROcodone/APAP 10-325MG 1 EACH TAB PO PRN ×4 (05:00→23:29)
[2019-03-24] MEDS: ONDANSETRON 4 MG/2 ML VIAL IVP PRN (05:00)
[2019-03-24] MEDS: FLUTICASONE 110 MCG INHALER INHALATION SCH ×2 (07:31→20:55)
[2019-03-24] MEDS: PANTOPRAZOLE 40 MG TABLET PO SCH (09:00)
[2019-03-24] MEDS: DILTIAZEM CD 240 MG CAP.ER.24H PO SCH (09:01)
[2019-03-24] MEDS: LORATADINE 10 MG TAB PO SCH (09:01)
[2019-03-24] MEDS: METHIMAZOLE 5 MG TAB PO SCH (09:02)
[2019-03-24 09:36] LABS: ALT 17 U/L (9-52); AST 16 U/L (14-36); African American GFR (CKD) >90 (>60 ml/min/1.73 sqM); Albumin 3.2 g/dL (3.5-5.0); Alkaline Phosphatase 58 U/L (38-126); Anion Gap 6 mmol/L; Blood Urea Nitrogen 3 mg/dL (7-17); Calcium 8.2 mg/dL (8.4-10.2); Carbon Dioxide 32 mmol/L (22-30); Chloride 100 mmol/L (98-107); Glucose 79 mg/dL (74-99); Sodium 138 mmol/L (137-145); Total Bilirubin 0.4 mg/dL (0.2-1.3); Total Protein 5.7 g/dL (6.3-8.2)
[2019-03-24 09:38] LABS: Immunoglobulin M 32.4 mg/dL (40.0-280.0)
[2019-03-24 09:45] LABS: Basophils % (A) 1 %; Eosinophils # (A) 0.4 k/uL (0-0.7); Eosinophils % (A) 6 %; HCT 33.3 % (34.0-46.0); HGB 10.6 gm/dL (11.4-16.0); Hypochromasia Slight; Lymphocytes # (A) 1.4 k/uL (1.0-4.8); Lymphocytes % (A) 23 %; MCH 29.7 pg (25.0-35.0); MCHC 31.7 g/dL (31.0-37.0); MCV 93.6 fL (80.0-100.0); Monocytes # (A) 0.4 k/uL (0-1.0); Monocytes % (A) 6 %; Neutrophils # (A) 3.8 k/uL (1.3-7.7); Neutrophils % (A) 61 %; Platelet Count 190 k/uL (150-450); RBC 3.56 m/uL (3.80-5.40); RDW 15.4 % (11.5-15.5); WBC 6.3 k/uL (3.8-10.6)
[2019-03-24] MEDS ORDERED: Potassium Replacement Protocol 1 EACH MISC MISCELLANE PRN (09:52)
--- NOTE | 2019-03-24 09:53 | P.PN ---
Subjective Progress Note Date: 03/24/19 This is a 63-year-old female patient presented with abdominal pain and and concerns for reoccurring C. diff. Patient has had multiple admissions in which was treated for C. diff and diarrhea. Patient reports that the pain has been progressing over the 10 days with worsening abdominal pain and decreased oral intake. Patient has a past medical history of CAD, heart failure, COPD, GERD, hypertension, liver disease, myocardial infarction, mitral valve prolapse, arthritis, A. fib not currently on anticoagulation due to bleeding, hep C and anxiety and depression. CT of abdomen and pelvis completed showing multifocal areas moderate wall thickening of the colon suggesting nonspecific colitis. This appears improved as compared to the prior. Left ovarian cyst measuring up to 3.4 cm changes unchanged. GI, infectious disease and pulmonary services have been consulted. [facility] group physicians covering on 03/22 and 03/23 On 03/24/2019 patient is alert and oriented 3. Patient is still complaining of some abdominal pain. Patient reports she had no bowel movements throughout the night but does report she had 2 this AM. Patient started having low-grade temps at 99.8. Possible plans for EGD and colonoscopy per GI services. pulmonary services have been consulted due to patient's known chronic condition. Patient does report some shortness of breath. Patient denies chest pain. Patient denies any urinary burning or frequency. Objective - Vital Signs Vital signs: Vital Signs Temp 99.8 F H 03/24/19 07:00 Pulse 82 03/24/19 07:45 Resp 16 03/24/19 07:00 BP 132/79 03/24/19 07:00 Pulse Ox 95 03/24/19 07:00 Intake & Output 03/23/19 03/24/19 03/24/19 18:59 06:59 18:59 Intake Total 260 Balance 260 Intake: Oral 260 Other: Voiding Method Toilet Toilet # Voids 2 - Exam Head normocephalic Neck supple Lungs diminished with expiratory wheezing Heart regular rate and rhythm S1-S2, no rub or gallop Abdomen is soft tender to palpation throughout Extremities no edema Neuro alert and orientated to 3 - Labs CBC & Chem 7: 03/23/19 06:26 03/23/19 06:26 Labs: Microbiology - Last 24 Hours (Table) 03/22/19 03:25 Blood Culture - Preliminary Blood No Growth after 48 hours 03/21/19 23:10 Blood Culture - Preliminary Blood No Growth after 48 hours Assessment and Plan Assessment: 1. Sepsis secondary to acute colitis. Initial white blood cell 20.9. Elevated temp at 102.5 Infectious disease is following. Blood cell has improved to 8.7. Patient made on Rocephin and Flagyl per infectious disease. Specific lab work has been ordered per infectious disease. 2. Abdominal pain. Patient has been evaluated by GI services. Possible EGD and colonoscopy 3. History of C. diff 4. History of hepatitis C 5. Chronic hypoxic respiratory failure. Maintain on home O2. Pulmonary services have been consulted 6. History of COPD 7. History of congestive heart failure 8. History of hyperthyroidism. TSH level has been ordered. Patient maintained on Tapazole 9. History of chronic back pain 10. History of right low liver lesion. Patient was evaluated by GI services during previous admission recommending outpatient follow-up 11. Indeterminate left ovarian lesion. Patient to follow-up with PCP and [employer] SUPERVISOR for further workup 12. History of atrial fibrillation and not on anticoagulation due to history of GI bleed 13. Hypokalemia. Potassium 3.0 replacement protocol DVT prophylaxis heparin. GI prophylaxis Protonix I performed an examination of the patient and discussed their management with the Nurse Practitioner. I have reviewed the Nurse Practitioner's notes and agree with the documented findings and plan of care
[2019-03-24] MEDS: metroNIDAZOLE-NS PMX 500 MG in SALINE 1 100ML.BAG IVPB SCH ×3 (10:32→23:29)
[2019-03-24] MEDS: SODIUM CHLORIDE 0.9% 1,000 ML IV SCH ×2 (10:35→13:16)
[2019-03-24] MEDS: POTASSIUM CHLORIDE ER 20 MEQ TAB.ER PO SCH ×2 (11:14→12:44)
--- NOTE | 2019-03-24 12:02 | P.PN ---
Subjective Progress Note Date: 03/24/19 Principal diagnosis: Colitis 4-5 nonbloody bowel movement to the night. Patient requesting pulmonary evaluation before making a decision on EGD colonoscopy. Afebrile. Reports fe eling better bowel movements are improving. White count 6.3. Hemoglobin 10.6. Objective - Vital Signs Vital signs: Vital Signs Temp 99.8 F H 03/24/19 07:00 Pulse 78 03/24/19 10:50 Resp 16 03/24/19 07:00 BP 132/79 03/24/19 07:00 Pulse Ox 95 03/24/19 07:00 Intake & Output 03/23/19 03/24/19 03/24/19 18:59 06:59 18:59 Intake Total 260 Balance 260 Intake: Oral 260 Other: Voiding Method Toilet Toilet # Voids 2 - Exam General appearance: The patient is alert, oriented, in no acute distress. HET: Head is normocephalic and atraumatic. Pupils are equal and reactive. Oropharynx is clear without lesions. Neck: Supple without lymphadenopathy. Trachea midline. Heart: S1 S2. Regular rate and rhythm. Lungs: No crackles or wheezes are heard. Abdomen: Soft, mildly diffusely tender across mid abdomen, nondistended with bowel sounds. No peritoneal signs. No palpable organomegaly or masses. Extremities: Normal skin color and turgor. No cyanosis, rash, ulceration, clubbing, or edema. Radial and pedal pulses are 2/4 bilaterally. Neurological: No focal deficits. Strength and sensation are grossly intact. - Labs CBC & Chem 7: 03/24/19 08:57 03/24/19 08:57 Labs: Abnormal Lab Results - Last 24 Hours (Table) 03/21/19 03/24/19 03/24/19 Range/Units 12:23 08:57 08:57 RBC 3.56 L (3.80-5.40) m/uL Hgb 10.6 L (11.4-16.0) gm/dL Hct 33.3 L (34.0-46.0) % Potassium 3.0 L (3.5-5.1) mmol/L Carbon Dioxide 32 H (22-30) mmol/L BUN 3 L (7-17) mg/dL Creatinine 0.29 L (0.52-1.04) mg/dL Calcium 8.2 L (8.4-10.2) mg/dL Total Protein 5.7 L (6.3-8.2) g/dL Albumin 3.2 L (3.5-5.0) g/dL IgM 32.4 L (40.0-280.0) mg/dL Microbiology - Last 24 Hours (Table) 03/22/19 03:25 Blood Culture - Preliminary Blood No Growth after 48 hours 03/21/19 23:10 Blood Culture - Preliminary Blood No Growth after 48 hours Assessment and Plan (1) Abdominal pain Narrative/Plan: Diffuse abdominal pain 2 years duration progressively worse with multiple hospitalizations with 2 documented episodes of Clostridium difficile colitis most recently January 2019. Admitted with acute abdominal pain CT reported thickening of the colon consistent with colitis possible inflammatory possible infectious nonspecific. History of IBS and chronic hepatitis C infection. Positive HCV RNA by PCR last hospitalization. Questionable underlying ulcerative colitis history last colonoscopy several years ago presently not on maintenance medications. Current Visit: Yes Status: Acute Code(s): R10.9 - UNSPECIFIED ABDOMINAL PAIN SNOMED Code(s): 92464727 (2) Diarrhea Current Visit: Yes Status: Acute Code(s): R19.7 - DIARRHEA, UNSPECIFIED SNOMED Code(s): 28008651 Plan: 1. EGD colonoscopy was advised however she would like to discuss with dedrick dsouza before proceeding with her decision. Continue symptomatic supportive measures. Assessment and plan a care discussed with Dr. Goldsmith
[2019-03-24] MEDS: ALPRAZolam 0.25 MG TAB PO PRN (16:22)
--- NOTE | 2019-03-24 16:59 | P.PN ---
Subjective Progress Note Date: 03/24/19 This is a 63-year-old female patient presented with abdominal pain and and concerns for reoccurring C. diff. Patient has had multiple admissions in which was treated for C. diff and diarrhea. Patient reports that the pain has been progressing over the 10 days with worsening abdominal pain and decreased oral intake. Patient has a past medical history of CAD, heart failure, COPD, GERD, hypertension, liver disease, myocardial infarction, mitral valve prolapse, arthritis, A. fib not currently on anticoagulation due to bleeding, hep C and anxiety and depression. CT of abdomen and pelvis completed showing multifocal areas moderate wall thickening of the colon suggesting nonspecific colitis. This appears improved as compared to the prior. Left ovarian cyst measuring up to 3.4 cm changes unchanged. GI, infectious disease and pulmonary services have been consulted. [facility] group physicians covering on 03/22 and 03/23 On 03/24/2019 patient is alert and oriented 3. Patient is still complaining of some abdominal pain. Patient reports she had no bowel movements throughout the night but does report she had 2 this AM. Patient started having low-grade temps at 99.8. Possible plans for EGD and colonoscopy per GI services. pulmonary services have been consulted due to patient's known chronic condition. Patient does report some shortness of breath. Patient denies chest pain. Patient denie s any urinary burning or frequency. Patient has mild shortness of breath she states that she feels like she is starting to have some fluid overload. Objective - Vital Signs Vital signs: Vital Signs Temp 98.3 F 03/24/19 14:18 Pulse 80 03/24/19 15:59 Resp 15 03/24/19 14:18 BP 116/76 03/24/19 14:18 Pulse Ox 94 L 03/24/19 14:18 Intake & Output 03/23/19 03/24/19 03/24/19 18:59 06:59 18:59 Intake Total 260 80 Balance 260 80 Intake: Oral 260 80 Other: Voiding Method Toilet Toilet # Voids 2 - Exam Head normocephalic and atraumatic Neck supple no JVD no goiter Lungs diminished with expiratory wheezing Heart regular rate and rhythm S1-S2, no rub or gallop Abdomen is soft tender to palpation throughout Extremities no edema Neuro alert and orientated to 3 - Labs CBC & Chem 7: 03/24/19 08:57 03/24/19 08:57 Labs: Abnormal Lab Results - Last 24 Hours (Table) 03/21/19 03/24/19 03/24/19 Range/Units 12:23 08:57 08:57 RBC 3.56 L (3.80-5.40) m/uL Hgb 10.6 L (11.4-16.0) gm/dL Hct 33.3 L (34.0-46.0) % Potassium 3.0 L (3.5-5.1) mmol/L Carbon Dioxide 32 H (22-30) mmol/L BUN 3 L (7-17) mg/dL Creatinine 0.29 L (0.52-1.04) mg/dL Calcium 8.2 L (8.4-10.2) mg/dL Total Protein 5.7 L (6.3-8.2) g/dL Albumin 3.2 L (3.5-5.0) g/dL IgM 32.4 L (40.0-280.0) mg/dL Microbiology - Last 24 Hours (Table) 03/22/19 03:25 Blood Culture - Preliminary Blood No Growth after 48 hours 03/21/19 23:10 Blood Culture - Preliminary Blood No Growth after 48 hours Assessment and Plan Plan: 1. Sepsis secondary to acute colitis. Initial white blood cell 20.9. Elevated temp at 102.5 Infectious disease is following. Blood cell has improved to 8.7. Patient made on Rocephin and Flagyl per infectious disease. Specific lab work has been ordered per infectious disease. 2. Abdominal pain. Patient has been evaluated by GI services. Possible EGD and colonoscopy 3. History of C. diff 4. History of hepatitis C 5. Chronic hypoxic respiratory failure. Maintain on home O2. Pulmonary services have been consulted 6. History of COPD 7. History of congestive heart failure 8. History of hyperthyroidism. TSH level has been ordered. Patient maintained on Tapazole 9. History of chronic back pain 10. History of right low liver lesion. Patient was evaluated by GI services during previous admission recommending outpatient follow-up 11. Indeterminate left ovarian lesion. Patient to follow-up with PCP and C[employer]OGRAP[employer] SUPERVISOR for further workup 12. History of atrial fibrillation and not on anticoagulation due to history of GI bleed 13. Hypokalemia. Potassium 3.0 replacement protocol 14. Shortness of breath will heplock IV fluid between antibiotic doses DVT prophylaxis heparin. GI prophylaxis Protonix
[2019-03-24] MEDS: MONTELUKAST 10 MG TAB PO SCH (20:21)
[2019-03-24] MEDS: PRAMIPEXOLE 0.5 MG TAB PO SCH (20:21)
[2019-03-24] MEDS: MELATONIN 5 MG TABLET PO SCH (20:21)
[2019-03-24] MEDS: CHOLECALCIFEROL 1,000 UNIT TAB PO SCH (20:21)
[2019-03-25] MEDS: HEPARIN SODIUM,PORCINE 5,000 UNIT/ML 1 ML VIAL SQ SCH ×3 (00:48→12:07)
[2019-03-25] MEDS: HYDROmorphone 1 MG/ML 1 ML SYRINGE IVP PRN ×6 (00:50→20:14)
[2019-03-25] MEDS: IPRATROPIUM-ALBUTEROL 3 ML NEB INHALATION PRN ×6 (04:20→23:48)
[2019-03-25] MEDS: HYDROcodone/APAP 10-325MG 1 EACH TAB PO PRN ×3 (05:42→21:29)
[2019-03-25] MEDS: PANTOPRAZOLE 40 MG TABLET PO SCH (09:09)
[2019-03-25] MEDS: metroNIDAZOLE-NS PMX 500 MG in SALINE 1 100ML.BAG IVPB SCH ×2 (09:09→16:56)
[2019-03-25] MEDS: DILTIAZEM CD 240 MG CAP.ER.24H PO SCH (09:09)
[2019-03-25] MEDS: LORATADINE 10 MG TAB PO SCH (09:11)
[2019-03-25] MEDS: METHIMAZOLE 5 MG TAB PO SCH (09:11)
[2019-03-25 09:18] LABS: HCT 36.2 % (34.0-46.0); HGB 11.4 gm/dL (11.4-16.0); Hypochromasia Slight; MCH 29.4 pg (25.0-35.0); MCHC 31.5 g/dL (31.0-37.0); MCV 93.3 fL (80.0-100.0); Mean Platelet Volume 7.2; Platelet Count 233 k/uL (150-450); RBC 3.88 m/uL (3.80-5.40); RDW 15.1 % (11.5-15.5); WBC 5.1 k/uL (3.8-10.6)
[2019-03-25 09:27] LABS: ALT 17 U/L (9-52); AST 13 U/L (14-36); African American GFR (CKD) >90 (>60 ml/min/1.73 sqM); Albumin 3.6 g/dL (3.5-5.0); Alkaline Phosphatase 47 U/L (38-126); Anion Gap 8 mmol/L; Blood Urea Nitrogen 2 mg/dL (7-17); Calcium 9.1 mg/dL (8.4-10.2); Carbon Dioxide 34 mmol/L (22-30); Chloride 99 mmol/L (98-107); Glucose 107 mg/dL (74-99); Potassium 3.6 mmol/L (3.5-5.1); Sodium 141 mmol/L (137-145); Total Bilirubin 0.3 mg/dL (0.2-1.3); Total Protein 6.2 g/dL (6.3-8.2)
--- NOTE | 2019-03-25 10:19 | P.PN ---
Subjective Progress Note Date: 03/25/19 This is a 63-year-old female patient presented with abdominal pain and and concerns for reoccurring C. diff. Patient has had multiple admissions in which was treated for C. diff and diarrhea. Patient reports that the pain has been progressing over the 10 days with worsening abdominal pain and decreased oral intake. Patient has a past medical history of CAD, heart failure, COPD, GERD, hypertension, liver disease, myocardial infarction, mitral valve prolapse, arthritis, A. fib not currently on anticoagulation due to bleeding, hep C and anxiety and depression. CT of abdomen and pelvis completed showing multifocal areas moderate wall thickening of the colon suggesting nonspecific colitis. This appears improved as compared to the prior. Left ovarian cyst measuring up to 3.4 cm changes unchanged. GI, infectious disease and pulmonary services have been consulted. [facility] group physicians covering on 03/22 and 03/23 On 03/24/2019 patient is alert and oriented 3. Patient is still complaining of some abdominal pain. Patient reports she had no bowel movements throughout the night but does report she had 2 this AM. Patient started having low-grade temps at 99.8. Possible plans for EGD and colonoscopy per GI services. pulmonary services have been consulted due to patient's known chronic condition. Patient does report some shortness of breath. Patient denies chest pain. Patient denies any urinary burning or frequency. On 03/25/2019 patient is alert and oriented 3. Patient reports improvement with shortness of breath. Patient also reports improvement with abdominal pain and diarrhea. Awaiting pulmonary consult. Possible plans for EGD and colonoscopy. Fluids have been hep-locked. At that time patient denies chest pain. Patient denies any nausea vomiting. Patient denies any urinary burning or frequency Objective - Vital Signs Vital signs: Vital Signs Temp 98.0 F 03/25/19 07:00 Pulse 84 03/25/19 07:00 Resp 15 03/25/19 07:00 BP 130/68 03/25/19 07:00 Pulse Ox 94 L 03/25/19 07:00 Intake & Output 03/24/19 03/25/19 03/25/19 18:59 06:59 18:59 Intake Total 1240 400 100 Balance 1240 400 100 Intake: Intake, IV Titration 800 220 Amount Sodium Chloride 0.9% 1, 650 120 000 ml @ 100 mls/hr IV . Q10H [facility] Rx#:[id number] cefTRIAXone 1 gm In 50 Sodium Chloride 0.9% 50 ml @ 100 mls/hr IVPB Q24HR [facility] Rx#:[id number] metroNIDAZOLE-NS PMX 500 100 100 mg In Saline 1 100ml.bag @ 100 mls/hr IVPB Q8HR [facility] Rx#:[id number] Oral 440 180 100 Other: Voiding Method Toilet # Voids 1 # Bowel Movements 1 - Exam Head normocephalic Neck supple Lungs diminished with expiratory wheezing Heart regular rate and rhythm S1-S2, no rub or gallop Abdomen is soft tender to palpation throughout Extremities no edema Neuro alert and orientated to 3 - Labs CBC & Chem 7: 03/25/19 08:56 03/25/19 08:56 Labs: Abnormal Lab Results - Last 24 Hours (Table) 03/25/19 Range/Units 08:56 Carbon Dioxide 34 H (22-30) mmol/L BUN 2 L (7-17) mg/dL Creatinine 0.29 L (0.52-1.04) mg/dL Glucose 107 H (74-99) mg/dL AST 13 L (14-36) U/L Total Protein 6.2 L (6.3-8.2) g/dL Microbiology - Last 24 Hours (Table) 03/22/19 03:25 Blood Culture - Preliminary Blood No Growth after 72 hours 03/21/19 23:10 Blood Culture - Preliminary Blood No Growth after 72 hours Assessment and Plan Assessment: 1. Sepsis secondary to acute colitis. Initial white blood cell 20.9. Elevated temp at 102.5 Infectious disease is following. Blood cell has improved to 8.7. Patient made on Rocephin and Flagyl per infectious disease. Specific lab work has been ordered per infectious disease. 2. Abdominal pain. Patient has been evaluated by GI services. Possible EGD and colonoscopy 3. History of C. diff 4. History of hepatitis C 5. Chronic hypoxic respiratory failure. Maintain on home O2. Pulmonary services have been consulted 6. History of COPD 7. History of congestive heart failure 8. History of hyperthyroidism. TSH level has been ordered. Patient maintained on Tapazole. TSH level 1.830 9. History of chronic back pain 10. History of right low liver lesion. Patient was evaluated by GI services during previous admission recommending outpatient follow-up 11. Indeterminate left ovarian lesion. Patient to follow-up with PCP and [employer] OPERATOR for further workup 12. History of atrial fibrillation and not on anticoagulation due to history of GI bleed 13. Hypokalemia. Potassium 3.0 replacement protocol. Repeat potassium 3.6 14. Shortness of breath. Fluids have been helped by pulmonary services have been consulted DVT prophylaxis heparin. GI prophylaxis Protonix I performed an examination of the patient and discussed their management with the Nurse Practitioner. I have reviewed the Nurse Practitioner's notes and agree with the documented findings and plan of care
[2019-03-25 10:26] LABS: Eosinophils # (M) 0.61 k/uL (0-0.7); Lymphocytes # (M) 1.89 k/uL (1.0-4.8); Monocytes # (M) 0.41 k/uL (0-1.0); Neutrophils % (M) 43 %; Nucleated Red Blood Cells 0 /100 WBC (0-0); Total Cells Counted 100
[2019-03-25 10:28] LABS: Poikilocytosis (M) Present
[2019-03-25] MEDS: FLUTICASONE 110 MCG INHALER INHALATION SCH ×2 (10:30→20:25)
--- NOTE | 2019-03-25 10:57 | P.PN ---
Subjective Progress Note Date: 03/25/19 Principal diagnosis: Colitis No diarrhea. Abdominal pain improved. Patient requesting pulmonary evaluation before making a decision on EGD colonoscopy. Afebrile. Objective - Vital Signs Vital signs: Vital Signs Temp 98.0 F 03/25/19 07:00 Pulse 80 03/25/19 10:00 Resp 15 03/25/19 07:00 BP 130/68 03/25/19 07:00 Pulse Ox 94 L 03/25/19 07:00 Intake & Output 03/24/19 03/25/19 03/25/19 18:59 06:59 18:59 Intake Total 1240 400 100 Balance 1240 400 100 Intake: Intake, IV Titration 800 220 Amount Sodium Chloride 0.9% 1, 650 120 000 ml @ 100 mls/hr IV . Q10H [facility] Rx#:[id number] cefTRIAXone 1 gm In 50 Sodium Chloride 0.9% 50 ml @ 100 mls/hr IVPB Q24HR [facility] Rx#:[id number] metroNIDAZOLE-NS PMX 500 100 100 mg In Saline 1 100ml.bag @ 100 mls/hr IVPB Q8HR [facility] Rx#:[id number] Oral 440 180 100 Other: Voiding Method Toilet # Voids 1 # Bowel Movements 1 - Exam General appearance: The patient is alert, oriented, in no acute distress. HET: Head is normocephalic and atraumatic. Pupils are equal and reactive. Oropharynx is clear without lesions. Neck: Supple without lymphadenopathy. Trachea midline. Heart: S1 S2. Regular rate and rhythm. Lungs: No crackles or wheezes are heard. Abdomen: Soft, mildly diffusely tender across mid abdomen, nondistended with bowel sounds. No peritoneal signs. No palpable organomegaly or masses. Extremities: Normal skin color and turgor. No cyanosis, rash, ulceration, clubbing, or edema. Radial and pedal pulses are 2/4 bilaterally. Neurological: No focal deficits. Strength and sensation are grossly intact. - Labs CBC & Chem 7: 03/25/19 08:56 03/25/19 08:56 Labs: Abnormal Lab Results - Last 24 Hours (Table) 03/25/19 Range/Units 08:56 Carbon Dioxide 34 H (22-30) mmol/L BUN 2 L (7-17) mg/dL Creatinine 0.29 L (0.52-1.04) mg/dL Glucose 107 H (74-99) mg/dL AST 13 L (14-36) U/L Total Protein 6.2 L (6.3-8.2) g/dL Microbiology - Last 24 Hours (Table) 03/22/19 03:25 Blood Culture - Preliminary Blood No Growth after 72 hours 03/21/19 23:10 Blood Culture - Preliminary Blood No Growth after 72 hours Assessment and Plan (1) Abdominal pain Narrative/Plan: Diffuse abdominal pain 2 years duration progressively worse with multiple hospitalizations with 2 documented episodes of Clostridium difficile colitis most recently January 2019. Admitted with acute abdominal pain CT reported thickening of the colon consistent with colitis possible inflammatory possible infectious nonspecific. History of IBS and chronic hepatitis C infection. Positive HCV RNA by PCR last hospitalization. Questionable underlying ulcerative colitis history last colonoscopy several years ago presently not on maintenance medications. Current Visit: Yes Status: Acute Code(s): R10.9 - UNSPECIFIED ABDOMINAL PAIN SNOMED Code(s): 87101175 (2) Diarrhea Current Visit: Yes Status: Acute Code(s): R19.7 - DIARRHEA, UNSPECIFIED SNOMED Code(s): 89323950 Plan: 1. EGD colonoscopy was advised however she would like to discuss with pulmonology before proceeding with her decision. Awaiting pulmonary input. Continue symptomatic supportive measures. Assessment and plan a care discussed with Dr. Goldsmith
[2019-03-25 13:13] LABS: Alpha 1 Anti-Trypsin 166 mg/dL (90 - 200)
[2019-03-25] MEDS: ALPRAZolam 0.25 MG TAB PO PRN (16:40)
[2019-03-25] MEDS: ONDANSETRON 4 MG/2 ML VIAL IVP PRN (16:40)
[2019-03-25] MEDS ORDERED: POTASSIUM CHLORIDE ER 20 MEQ TAB.ER PO STA (16:54)
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
[2019-03-25] MEDS: MELATONIN 5 MG TABLET PO SCH (20:13)
[2019-03-25] MEDS: PRAMIPEXOLE 0.5 MG TAB PO SCH (20:13)
[2019-03-25] MEDS: CHOLECALCIFEROL 1,000 UNIT TAB PO SCH (20:13)
[2019-03-25] MEDS: methylPREDNISolone SOD SUCCI 40 MG/ML 1 ML VIAL IV SCH (20:13)
[2019-03-25] MEDS: MONTELUKAST 10 MG TAB PO SCH (20:13)
[2019-03-25] MEDS: FORMOTEROL FUMARATE 20 MCG/2 ML NEBU INHALATION SCH (20:23)
--- NOTE | 2019-03-25 23:42 | P.PN ---
Subjective 63-year-old female who presents to hospital with further episode of severe abdominal pain. The patient's records have been reviewed and the patient has had multiple hospitalizations throughout this last year. Starting in the fall of 2017 she had developed some abdominal pain and diarrhea. Workup at that time revealed evidence of Clostridium difficile colitis and she was treated and had some improvement of her diarrhea symptoms. Since that time she's had intermittent episodes of severe abdominal pain and workup has been done. She does appear to have had 1 further episode of Clostridium difficile colitis and was treated with vancomycin and Flagyl. She has not had recurrence since several months ago. She over continues to have bouts of severe abdominal pain that of different difficult to characterize. She has been seen by multiple consultants which include general surgery and gastroenterology. There is evidence by computed tomography scan of some colitis that waxes and wanes but has been improving over time. Etiology of the colitis is not clear and and is followed by multiple teams attempting to improve her status. She does have a history of chronic tobacco use but stopped smoking at this time. She however is oxygen dependent and does have by multiple CAT scans evidence of emphysema with evidence of cylindrical bronchiectasis. During the stay she does not have diarrhea but did have a fever. 03/25/2019 the patient is showing a marked improvement of his abdominal pain. C. diff was negative. Normal diarrhea. She's been seen by gastroenterology and there is contemplation for EGD and colonoscopy. With her significant abdominal pain and marked abnormality on computed tomography scan is looking forward to evaluation. Objective - Vital Signs Vital signs: Vital Signs Temp 98.6 F 03/25/19 20:12 Pulse 88 03/25/19 20:48 Resp 18 03/25/19 20:12 BP 148/90 03/25/19 20:12 Pulse Ox 96 03/25/19 20:25 Intake & Output 03/25/19 03/25/19 03/26/19 06:59 18:59 06:59 Intake Total 400 100 Balance 400 100 Intake: Intake, IV Titration 220 Amount Sodium Chloride 0.9% 1, 120 000 ml @ 100 mls/hr IV . Q10H ROXY Rx#:[id number] metroNIDAZOLE-NS PMX 500 100 mg In Saline 1 100ml.bag @ 100 mls/hr IVPB Q8HR ROXY Rx#:[id number] Oral 180 100 Other: Voiding Method Toilet Toilet # Voids 1 2 2 # Bowel Movements 1 1 - Exam patient less uncomfortable and appears older than her stated age HEENT: Anicteric conjunctiva are pink and moist nasal mucosa grossly intact without significant lesions, there is no thrush. Neck: The neck is supple without significant lymphadenopathy or thyromegaly. Lungs: Symmetrical air entry is noted basilar crackles are noted expiratory wheezes are scattered no significant bronchial sounds dullness or egophony Heart: Regular rate and rhythm with an audible S1-S2, no S3 positive S4.. There is no significant murmur click or rub, PMI was nondisplaced. Abdomen: Is not significantly distended, it has diffuse tenderness throughout all quadrants but the right lower quadrant seems to be the most active. There is no significant hepatosplenomegaly. There is no palpable mass. The abdomen is nonrigid. There is no bruising to the abdominal wall. No flank tenderness Extremities: The upper extremities have excellent pulses they are symmetric, no significant petechiae or telangiectasia. No splinter hemorrhages were noted. The lower extremities are free from significant edema. The peripheral pulses were 2+ and symmetric. Neuro: Awake alert oriented to person place and time. There are no acute new gross focal sensory motor deficits. - Labs CBC & Chem 7: 03/25/19 08:56 03/25/19 08:56 Labs: Abnormal Lab Results - Last 24 Hours (Table) 03/25/19 Range/Units 08:56 Carbon Dioxide 34 H (22-30) mmol/L BUN 2 L (7-17) mg/dL Creatinine 0.29 L (0.52-1.04) mg/dL Glucose 107 H (74-99) mg/dL AST 13 L (14-36) U/L Total Protein 6.2 L (6.3-8.2) g/dL Microbiology - Last 24 Hours (Table) 03/22/19 03:25 Blood Culture - Preliminary Blood No Growth after 72 hours 03/21/19 23:10 Blood Culture - Preliminary Blood No Growth after 72 hours Assessment and Plan (1) Abdominal pain Narrative/Plan: 63-year-old female presents to Hospital with another bout of severe abdominal pain. She's been having difficulties with recurrent abdominal pain and many ER visits and hospitalizations of occurred since June of last year. She has had Clostridium difficile in the "past but has not been recent. Currently she has severe abdominal pain but does not have diarrhea. If she develops diarrhea should be rechecked for Clostridium difficile again. The patient has been evaluated by gastroenterology. At this time again the records have been reviewed and there is evidence of the significant emphysema with bronchiectasis and the chronic abdominal pain. At this time attempting to determine if there is a correlation between the 2 with a potential for underlying autoimmune disease or immunological disease. We'll check alpha 1 antitrypsin, Aspergillus antibodies, immunoglobulin G level evaluating for hypogammaglobulinemia. IgE level will be obtained regarding for the possibility of a hyperimmunoglobulin E syndrome. Given the recurrent nature and severe nature of her pain and underlying vascular nature to her abdominal pain will also need to be considered if no other etiologies become evident. 03/25/2019 the patient is startingto feel better. There is no evidence of hypogammaglobulinemia. IgE level is elevated. It with her bronchiectasis may be a candidate for IgE reduction therapy. Aspergillus specific antibodies are negative. Alpha-1 antitrypsin is still pending. She is discussing the possibility of undergoing further endoscopy with her family hopefully can be prepped tomorrow and then had procedures on . testing for C. difficile toxin hasResulted as negative. She is having a marked improvement of her abdominal symptoms with antibiotic therapy. Biopsies of the colon might be helpful and diagnostic. Current Visit: Yes Status: Acute Code(s): R10.9 - UNSPECIFIED ABDOMINAL PAIN SNOMED Code(s): 56481023 (2) Emphysema of lung Current Visit: Yes Status: Acute Code(s): J43.9 - EMPHYSEMA, UNSPECIFIED S NOMED Code(s): 93770310 (3) Cylindrical bronchiectasis Current Visit: Yes Status: Acute Code(s): J47.9 - BRONCHIECTASIS, UNCOMPLICATED SNOMED Code(s): 13311816
[2019-03-26] MEDS: HEPARIN SODIUM,PORCINE 5,000 UNIT/ML 1 ML VIAL SQ SCH ×3 (00:20→16:12)
[2019-03-26] MEDS: HYDROmorphone 1 MG/ML 1 ML SYRINGE IVP PRN ×6 (00:22→23:16)
[2019-03-26] MEDS: metroNIDAZOLE-NS PMX 500 MG in SALINE 1 100ML.BAG IVPB SCH ×4 (00:22→23:23)
[2019-03-26] MEDS: IPRATROPIUM-ALBUTEROL 3 ML NEB INHALATION PRN ×6 (03:27→23:35)
[2019-03-26] MEDS: FLUTICASONE 110 MCG INHALER INHALATION SCH ×2 (07:20→20:13)
[2019-03-26] MEDS: FORMOTEROL FUMARATE 20 MCG/2 ML NEBU INHALATION SCH ×2 (07:25→20:13)
[2019-03-26] MEDS: LORATADINE 10 MG TAB PO SCH (07:32)
[2019-03-26] MEDS: METHIMAZOLE 5 MG TAB PO SCH (07:32)
[2019-03-26] MEDS: DILTIAZEM CD 240 MG CAP.ER.24H PO SCH (07:32)
[2019-03-26] MEDS: PANTOPRAZOLE 40 MG TABLET PO SCH (07:32)
[2019-03-26] MEDS: methylPREDNISolone SOD SUCCI 40 MG/ML 1 ML VIAL IV SCH ×2 (07:33→20:47)
[2019-03-26 07:52] LABS: Basophils % (A) 0 %; Eosinophils % (A) 1 %; HCT 38.8 % (34.0-46.0); HGB 12.3 gm/dL (11.4-16.0); Hypochromasia Slight; Lymphocytes # (A) 0.8 k/uL (1.0-4.8); Lymphocytes % (A) 20 %; MCH 29.7 pg (25.0-35.0); MCHC 31.8 g/dL (31.0-37.0); MCV 93.1 fL (80.0-100.0); Mean Platelet Volume 7.4; Monocytes # (A) 0.1 k/uL (0-1.0); Monocytes % (A) 3 %; Neutrophils # (A) 2.9 k/uL (1.3-7.7); Neutrophils % (A) 75 %; Platelet Count 259 k/uL (150-450); RBC 4.16 m/uL (3.80-5.40); RDW 14.9 % (11.5-15.5); WBC 3.9 k/uL (3.8-10.6)
[2019-03-26 08:01] LABS: ALT 14 U/L (9-52); AST 20 U/L (14-36); African American GFR (CKD) >90 (>60 ml/min/1.73 sqM); Albumin 4.1 g/dL (3.5-5.0); Alkaline Phosphatase 49 U/L (38-126); Anion Gap 9 mmol/L; Blood Urea Nitrogen 7 mg/dL (7-17); Calcium 9.6 mg/dL (8.4-10.2); Carbon Dioxide 34 mmol/L (22-30); Chloride 97 mmol/L (98-107); Glucose 159 mg/dL (74-99); Sodium 140 mmol/L (137-145); Total Bilirubin 0.5 mg/dL (0.2-1.3); Total Protein 7.1 g/dL (6.3-8.2)
[2019-03-26 08:16] LABS: Potassium 4.4 mmol/L (3.5-5.1)
[2019-03-26] MEDS: HYDROcodone/APAP 10-325MG 1 EACH TAB PO PRN ×3 (08:41→20:47)
--- NOTE | 2019-03-26 09:41 | P.PN ---
Subjective Progress Note Date: 03/26/19 Principal diagnosis: Colitis Feels well. Seen by pulmonology. Patient states inpatient endoscopic exams are not advised at this time. Afebrile. Minimal abdominal discomfort. 2 bowel movements yesterday. Objective - Vital Signs Vital signs: Vital Signs Temp 98.0 F 03/26/19 07:00 Pulse 88 03/26/19 07:30 Resp 15 03/26/19 07:00 BP 151/77 03/26/19 07:00 Pulse Ox 97 03/26/19 07:20 Intake & Output 03/25/19 03/26/19 03/26/19 18:59 06:59 18:59 Intake Total 100 60 Balance 100 60 Intake: Oral 100 60 Other: Voiding Method Toilet # Voids 2 2 # Bowel Movements 1 - Exam General appearance: The patient is alert, oriented, in no acute distress. HET: Head is normocephalic and atraumatic. Pupils are equal and reactive. Oropharynx is clear without lesions. Neck: Supple without lymphadenopathy. Trachea midline. Heart: S1 S2. Regular rate and rhythm. Lungs: No crackles or wheezes are heard. Abdomen: Soft, mildly diffusely tender across mid abdomen, nondistended with bowel sounds. No peritoneal signs. No palpable organomegaly or masses. Extremities: Normal skin color and turgor. No cyanosis, rash, ulceration, clubbing, or edema. Radial and pedal pulses are 2/4 bilaterally. Neurological: No focal deficits. Strength and sensation are grossly intact. - Labs CBC & Chem 7: 03/26/19 07:03 03/26/19 07:03 Labs: Abnormal Lab Results - Last 24 Hours (Table) 03/26/19 03/26/19 Range/Units 07:03 07:03 Lymphocytes # 0.8 L (1.0-4.8) k/uL Chloride 97 L (98-107) mmol/L Carbon Dioxide 34 H (22-30) mmol/L Creatinine 0.26 L (0.52-1.04) mg/dL Glucose 159 H (74-99) mg/dL Microbiology - Last 24 Hours (Table) 03/22/19 03:25 Blood Culture - Preliminary Blood No Growth after 96 hours 03/21/19 23:10 Blood Culture - Preliminary Blood No Growth after 96 hours Assessment and Plan (1) Abdominal pain Narrative/Plan: Diffuse abdominal pain 2 years duration progressively worse with multiple hospitalizations with 2 documented episodes of Clostridium difficile colitis most recently January 2019. Admitted with acute abdominal pain CT reported thickening of the colon consistent with colitis possible inflammatory possible infectious nonspecific. History of IBS and chronic hepatitis C infection. Positive HCV RNA by PCR last hospitalization. Questionable underlying ulcerative colitis history last colonoscopy several years ago presently not on maintenance medications. Current Visit: Yes Status: Acute Code(s): R10.9 - UNSPECIFIED ABDOMINAL PAIN SNOMED Code(s): 04924479 (2) Diarrhea Current Visit: Yes Status: Acute Code(s): R19.7 - DIARRHEA, UNSPECIFIED SNOMED Code(s): 34089134 Plan: 1. Clinically she is improved inpatient EGD colonoscopy not advised at this time. Follow-up with GI office after discharge if her symptoms recur or persist for reevaluation. We'll sign off and be available for questions and or onesimo rns. Appreciate pulmonary input. Continue symptomatic supportive measures. Assessment and plan a care discussed with Dr. Goldsmith
--- NOTE | 2019-03-26 10:27 | P.PN ---
Subjective Progress Note Date: 03/26/19 This is a 63-year-old female patient presented with abdominal pain and and concerns for reoccurring C. diff. Patient has had multiple admissions in which was treated for C. diff and diarrhea. Patient reports that the pain has been progressing over the 10 days with worsening abdominal pain and decreased oral intake. Patient has a past medical history of CAD, heart failure, COPD, GERD, hypertension, liver disease, myocardial infarction, mitral valve prolapse, arthritis, A. fib not currently on anticoagulation due to bleeding, hep C and anxiety and depression. CT of abdomen and pelvis completed showing multifocal areas moderate wall thickening of the colon suggesting nonspecific colitis. This appears improved as compared to the prior. Left ovarian cyst measuring up to 3.4 cm changes unchanged. GI, infectious disease and pulmonary services have been consulted. [facility] group physicians covering on 03/22 and 03/23 On 03/24/2019 patient is alert and oriented 3. Patient is still complaining of some abdominal pain. Patient reports she had no bowel movements throughout the night but does report she had 2 this AM. Patient started having low-grade temps at 99.8. Possible plans for EGD and colonoscopy per GI services. pulmonary services have been consulted due to patient's known chronic condition. Patient does report some shortness of breath. Patient denies chest pain. Patient denies any urinary burning or frequency. On 03/25/2019 patient is alert and oriented 3. Patient reports improvement with shortness of breath. Patient also reports improvement with abdominal pain and diarrhea. Awaiting pulmonary consult. Possible plans for EGD and colonoscopy. Fluids have been hep-locked. At that time patient denies chest pain. Patient denies any nausea vomiting. Patient denies any urinary burning or frequency On 03/26/2019 patient's alert and oriented 3. Patient reports significant improvement with her shortness of breath. Patient has been started on IV steroids per pulmonary services. Discussed case with GI services no plans for inpatient EGD or colonoscopy will follow up outpatient for further evaluation. At this time patient denies any chest pain. Patient denies nausea vomiting or diarrhea. Patient denies any urinary burning or frequency. Patient reports she has not had a bowel movement 24 hours has been tolerating diet. Objective - Vital Signs Vital signs: Vital Signs Temp 98.0 F 03/26/19 07:00 Pulse 88 03/26/19 07:30 Resp 15 03/26/19 07:00 BP 151/77 03/26/19 07:00 Pulse Ox 97 03/26/19 07:20 Intake & Output 03/25/19 03/26/19 03/26/19 18:59 06:59 18:59 Intake Total 100 60 240 Balance 100 60 240 Intake: Oral 100 60 240 Other: Voiding Method Toilet # Voids 2 2 # Bowel Movements 1 - Exam Head normocephalic Neck supple Lungs diminished with expiratory wheezing Heart regular rate and rhythm S1-S2, no rub or gallop Abdomen is soft tender to palpation throughout Extremities no edema Neuro alert and orientated to 3 - Labs CBC & Chem 7: 03/26/19 07:03 03/26/19 07:03 Labs: Abnormal Lab Results - Last 24 Hours (Table) 03/26/19 03/26/19 Range/Units 07:03 07:03 Lymphocytes # 0.8 L (1.0-4.8) k/uL Chloride 97 L (98-107) mmol/L Carbon Dioxide 34 H (22-30) mmol/L Creatinine 0.26 L (0.52-1.04) mg/dL Glucose 159 H (74-99) mg/dL Microbiology - Last 24 Hours (Table) 03/22/19 03:25 Blood Culture - Preliminary Blood No Growth after 96 hours 03/21/19 23:10 Blood Culture - Preliminary Blood No Growth after 96 hours Assessment and Plan Assessment: 1. Sepsis secondary to acute colitis. Initial white blood cell 20.9. Elevated temp at 102.5 Infectious disease is following. Blood cell has improved to 8.7. Patient made on Rocephin and Flagyl per infectious disease. Specific lab work has been ordered per infectious disease. 2. Abdominal pain. Patient has been evaluated by GI services. Discussed case with GI services no plans for inpatient EGD or colonoscopy. Patient to follow- up outpatient with GI services 3. History of C. diff 4. History of hepatitis C 5. Chronic hypoxic respiratory failure. Maintain on home O2. Pulmonary services have been consulted 6. History of COPD 7. History of congestive heart failure 8. History of hyperthyroidism. TSH level has been ordered. Patient maintained on Tapazole. TSH level 1.830 9. History of chronic back pain 10. History of right low liver lesion. Patient was evaluated by GI services during previous admission recommending outpatient follow-up 11. Indeterminate left ovarian lesion. Patient to follow-up with PCP and FURNACE MASON for further workup 12. History of atrial fibrillation and not on anticoagulation due to history of GI bleed 13. Hypokalemia. Potassium 3.0 replacement protocol. Repeat potassium 3.6 14. Acute COPD exacerbation. Primary services are following. Patient started on IV steroids DVT prophylaxis heparin. GI prophylaxis Protonix I performed an examination of the patient and discussed their management with the Nurse Practitioner. I have reviewed the Nurse Practitioner's notes and agree with the documented findings and plan of care
[2019-03-26] MEDS: ALPRAZolam 0.25 MG TAB PO PRN (19:33)
[2019-03-26] MEDS: CHOLECALCIFEROL 1,000 UNIT TAB PO SCH (20:46)
[2019-03-26] MEDS: MELATONIN 5 MG TABLET PO SCH (20:47)
[2019-03-26] MEDS: PRAMIPEXOLE 0.5 MG TAB PO SCH (20:47)
[2019-03-26] MEDS: MONTELUKAST 10 MG TAB PO SCH (20:47)
--- NOTE | 2019-03-27 00:03 | P.PN ---
Subjective Progress Note Date: 03/26/19 63-year-old female who presents to hospital with further episode of severe abdominal pain. The patient's records have been reviewed and the patient has had multiple hospitalizations throughout this last year. Starting in the fall of 2017 she had developed some abdominal pain and diarrhea. Workup at that time revealed evidence of Clostridium difficile colitis and she was treated and had some improvement of her diarrhea symptoms. Since that time she's had intermittent episodes of severe abdominal pain and workup has been done. She does appear to have had 1 further episode of Clostridium difficile colitis and was treated with vancomycin and Flagyl. She has not had recurrence since sev eral months ago. She over continues to have bouts of severe abdominal pain that of different difficult to characterize. She has been seen by multiple consultants which include general surgery and gastroenterology. There is evidence by computed tomography scan of some colitis that waxes and wanes but has been improving over time. Etiology of the colitis is not clear and and is followed by multiple teams attempting to improve her status. She does have a history of chronic tobacco use but stopped smoking at this time. She however is oxygen dependent and does have by multiple CAT scans evidence of emphysema with evidence of cylindrical bronchiectasis. During the stay she does not have celina rrhea but did have a fever. 03/25/2019 the patient is showing a marked improvement of his abdominal pain. C. diff was negative. Normal diarrhea. She's been seen by gastroenterology and there is contemplation for EGD and colonoscopy. With her significant abdominal pain and marked abnormality on computed tomography scan is looking forward to evaluation. His 2018 there is further improvement of her pain. She has not had any jess diarrhea. 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 She's having no fevers or chills. Objective - Vital Signs Vital signs: Vital Signs Temp 97.8 F 03/26/19 20:04 Pulse 82 03/26/19 23:44 Resp 18 03/26/19 20:04 BP 159/84 03/26/19 20:04 Pulse Ox 96 03/26/19 20:04 Intake & Output 03/26/19 03/26/19 03/27/19 06:59 18:59 06:59 Intake Total 60 640 Balance 60 640 Intake: Oral 60 640 Other: Voiding Method Toilet Toilet # Voids 2 3 1 # Bowel Movements 1 - Exam patient less uncomfortable and appears older than her stated age HEENT: Anicteric conjunctiva are pink and moist nasal mucosa grossly intact without significant lesions, there is no thrush. Neck: The neck is supple without significant lymphadenopathy or thyromegaly. Lungs: Symmetrical air entry is noted basilar crackles are noted expiratory wheezes are scattered no significant bronchial sounds dullness or egophony Heart: Regular rate and rhythm with an audible S1-S2, no S3 positive S4.. There is no significant murmur click or rub, PMI was nondisplaced. Abdomen: Is not significantly distended, it has diffuse tenderness throughout all quadrants but the right lower quadrant seems to be the most active. There is no significant hepatosplenomegaly. There is no palpable mass. The abdomen is nonrigid. There is no bruising to the abdominal wall. No flank tenderness Extremities: The upper extremities have excellent pulses they are symmetric, no significant petechiae or telangiectasia. No splinter hemorrhages were noted. The lower extremities are free from significant edema. The peripheral pulses were 2+ and symmetric. Neuro: Awake alert oriented to person place and time. There are no acute new gross focal sensory motor deficits. - Labs CBC & Chem 7: 03/26/19 07:03 03/26/19 07:03 Labs: Abnormal Lab Results - Last 24 Hours (Table) 03/26/19 03/26/19 Range/Units 07:03 07:03 Lymphocytes # 0.8 L (1.0-4.8) k/uL Chloride 97 L (98-107) mmol/L Carbon Dioxide 34 H (22-30) mmol/L Creatinine 0.26 L (0.52-1.04) mg/dL Glucose 159 H (74-99) mg/dL Microbiology - Last 24 Hours (Table) 03/22/19 03:25 Blood Culture - Preliminary Blood No Growth after 96 hours 03/21/19 23:10 Blood Culture - Preliminary Blood No Growth after 96 hours Laboratory Results WBC 3.9 k/uL (3.8-10.6) 03/26/19 07:03 RBC 4.16 m/uL (3.80-5.40) 03/26/19 07:03 Hgb 12.3 gm/dL (11.4-16.0) 03/26/19 07:03 Hct 38.8 % (34.0-46.0) 03/26/19 07:03 MCV 93.1 fL (80.0-100.0) 03/26/19 07:03 MCH 29.7 pg (25.0-35.0) 03/26/19 07:03 MCHC 31.8 g/dL (31.0-37.0) 03/26/19 07:03 RDW 14.9 % (11.5-15.5) 03/26/19 07:03 Plt Count 259 k/uL (150-450) 03/26/19 07:03 Neutrophils % 75 % 03/26/19 07:03 Neutrophils % (Manual) 43 % 03/25/19 08:56 Lymphocytes % 20 % 03/26/19 07:03 Lymphocytes % (Manual) 37 % 03/25/19 08:56 Monocytes % 3 % 03/26/19 07:03 Monocytes % (Manual) 8 % 03/25/19 08:56 Eosinophils % 1 % 03/26/19 07:03 Eosinophils % (Manual) 12 % 03/25/19 08:56 Basophils % 0 % 03/26/19 07:03 Neutrophils # 2.9 k/uL (1.3-7.7) 03/26/19 07:03 Neutrophils # (Manual) 2.19 k/uL (1.3-7.7) 03/25/19 08:56 Lymphocytes # 0.8 k/uL (1.0-4.8) L 03/26/19 07:03 Lymphocytes # (Manual) 1.89 k/uL (1.0-4.8) 03/25/19 08:56 Monocytes # 0.1 k/uL (0-1.0) 03/26/19 07:03 Monocytes # (Manual) 0.41 k/uL (0-1.0) 03/25/19 08:56 Eosinophils # 0.0 k/uL (0-0.7) 03/26/19 07:03 Eosinophils # (Manual) 0.61 k/uL (0-0.7) 03/25/19 08:56 Basophils # 0.0 k/uL (0-0.2) 03/26/19 07:03 Nucleated RBCs 0 /100 WBC (0-0) 03/25/19 08:56 Manual Slide Review Performed 03/25/19 08:56 Hypochromasia Slight 03/26/19 07:03 Poikilocytosis (manual Present 03/25/19 08:56 Anisocytosis Slight 03/21/19 23:15 Sodium 140 mmol/L (137-145) 03/26/19 07:03 Potassium 4.4 mmol/L (3.5-5.1) 03/26/19 07:03 Chloride 97 mmol/L (98-107) L 03/26/19 07:03 Carbon Dioxide 34 mmol/L (22-30) H 03/26/19 07:03 Anion Gap 9 mmol/L 03/26/19 07:03 BUN 7 mg/dL (7-17) 03/26/19 07:03 Creatinine 0.26 mg/dL (0.52-1.04) L 03/26/19 07:03 Est GFR (CKD-EPI)AfAm >90 (>60 ml/min/1.73 sqM) 03/26/19 07:03 Est GFR (CKD-EPI)NonAf >90 (>60 ml/min/1.73 sqM) 03/26/19 07:03 Glucose 159 mg/dL (74-99) H 03/26/19 07:03 Plasma Lactic Acid Addison 0.9 mmol/L (0.7-2.0) 03/21/19 23:15 Calcium 9.6 mg/dL (8.4-10.2) 03/26/19 07:03 Magnesium 1.8 mg/dL (1.6-2.3) 03/21/19 23:15 Total Bilirubin 0.5 mg/dL (0.2-1.3) 03/26/19 07:03 AST 20 U/L (14-36) 03/26/19 07:03 ALT 14 U/L (9-52) 03/26/19 07:03 Alkaline Phosphatase 49 U/L (38-126) 03/26/19 07:03 Troponin I <0.012 ng/mL (0.000-0.034) 03/22/19 03:25 NT-Pro-B Natriuret Pep 921 pg/mL 03/24/19 08:57 Total Protein 7.1 g/dL (6.3-8.2) 03/26/19 07:03 Albumin 4.1 g/dL (3.5-5.0) 03/26/19 07:03 Izimo-6-Bialopawjtd 166 mg/dL (90 - 200) 03/23/19 06:26 Alpha-1-AT Interpret See Below 03/23/19 06:26 Alpha-1-AT Phenotype MM 03/23/19 06:26 Lipase 29 U/L (23-300) 03/21/19 23:15 TSH 1.830 mIU/L (0.465-4.680) 03/24/19 08:57 A.fumigatus Allerg IgE <0.10 kU/L 03/21/19 23:23 Urine Color Yellow 03/22/19 01:53 Urine Appearance Clear (Clear) 03/22/19 01:53 Urine pH 7.5 (5.0-8.0) 03/22/19 01:[address] >1.050 (1.001-1.035) H 03/22/19 01:53 Urine Protein Trace (Negative) H 03/22/19 01:53 Urine Glucose (UA) Negative (Negative) 03/22/19 01:53 Urine Ketones Negative (Negative) 03/22/19 01:53 Urine Blood Negative (Negative) 03/22/19 01:53 Urine Nitrite Negative (Negative) 03/22/19 01:53 Urine Bilirubin Negative (Negative) 03/22/19 01:53 Urine Urobilinogen 2.0 mg/dL (<2.0) 03/22/19 01:53 Ur Leukocyte Esterase Negative (Negative) 03/22/19 01:53 IgG 1080.0 mg/dL (700.0-1600.0) 03/21/19 12:23 IgA 110.0 mg/dL (60.0-350.0) 03/21/19 12:23 IgM 32.4 mg/dL (40.0-280.0) L 03/21/19 12:23 IgE 136.00 IU/mL (0.00-114.00) H 03/21/19 23:23 C. difficile (EIA) Intrp Negative (Negative) 03/23/19 Unknown Microbiology Entire Visit 03/22/19 03:25 Blood Blood Culture - Preliminary No Growth after 96 hours 03/21/19 23:10 Blood Blood Culture - Preliminary No Growth after 96 hours Assessment and Plan (1) Abdominal pain Narrative/Plan: 63-year-old female presents to Hospital with another bout of severe abdominal pain. She's been having difficulties with recurrent abdominal pain and many ER visits and hospitalizations of occurred since June of last year. She has had Clostridium difficile in the "past but has not been recent. Currently she has severe abdominal pain but does not have diarrhea. If she develops diarrhea should be rechecked for Clostridium difficile again. The patient has been evaluated by gastroenterology. At this time again the records have been reviewed and there is evidence of the significant emphysema with bronchiectasis and the chronic abdominal pain. At this time attempting to determine if there is a correlation between the 2 with a potential for underlying autoimmune disease or immunological disease. We'll check alpha 1 antitrypsin, Aspergillus antibodies, immunoglobulin G level evaluating for hypogammaglobulinemia. IgE level will be obtained regarding for the possibility of a hyperimmunoglobulin E syndrome. Given the recurrent nature and severe nature of her pain and underlying vascular nature to her abdominal pain will also need to be considered if no other etiologies become evident. 03/25/2019 the patient is startingto feel better. There is no evidence of hypogammaglobulinemia. IgE level is elevated. It with her bronchiectasis may be a candidate for IgE reduction therapy. Aspergillus specific antibodies are negative. Alpha-1 antitrypsin is still pending. She is discussing the possibility of undergoing further endoscopy with her family hopefully can be prepped tomorrow and then had procedures on . testing for C. difficile toxin hasResulted as negative. She is having a marked improvement of her abdominal symptoms with antibiotic therapy. Biopsies of the colon might be helpful and diagnostic. 03/26/2019 the patient is feeling better. He has notable workup so far has been negative for etiology of her bronchiectasis other than prior tobacco use. Alpha-1 antitrypsin has come back as normal with a normal genotype. She's had s ome difficulty with her pulmonary status and they're trying to ensure that this is improved before she has her outpatient endoscopies. Goal is colonic biopsies to have further diagnosis of her chronic colitis. We'll need to transition to some oral antibiotic therapy at home lately with metronidazole and cefuroxime to complete a course of antibiotics up until the time of her biopsies. Routinely with antibiotics. She rapidly reoccurs or symptoms. Current Visit: Yes Status: Acute Code(s): R10.9 - UNSPECIFIED ABDOMINAL PAIN SNOMED Code(s): 05789267 (2) Emphysema of lung Current Visit: Yes Status: Acute Code(s): J43.9 - EMPHYSEMA, UNSPECIFIED SNOMED Code(s): 24654215 (3) Cylindrical bronchiectasis Current Visit: Yes Status: Acute Code(s): J47.9 - BRONCHIECTASIS, U NCOMPLICATED SNOMED Code(s): 09618861
[2019-03-27] MEDS: HEPARIN SODIUM,PORCINE 5,000 UNIT/ML 1 ML VIAL SQ SCH ×3 (00:26→13:14)
[2019-03-27] MEDS: HYDROmorphone 1 MG/ML 1 ML SYRINGE IVP PRN ×5 (02:17→18:43)
[2019-03-27] MEDS: HYDROcodone/APAP 10-325MG 1 EACH TAB PO PRN ×4 (03:16→21:22)
[2019-03-27] MEDS: IPRATROPIUM-ALBUTEROL 3 ML NEB INHALATION PRN ×6 (03:16→23:50)
[2019-03-27] MEDS: FORMOTEROL FUMARATE 20 MCG/2 ML NEBU INHALATION SCH ×2 (07:29→20:16)
[2019-03-27] MEDS: FLUTICASONE 110 MCG INHALER INHALATION SCH ×2 (07:33→20:06)
--- NOTE | 2019-03-27 07:42 | P.PN ---
Subjective Progress Note Date: 03/27/19 Principal diagnosis: Acute COPD exacerbation Diffuse abdominal pain lately more concentrated and lower abdominal and rectal pain differential diagnosis of ulcerative colitis Hepatitis C infection Acute on chronic hypoxic respiratory failure History of C. difficile colitis Restless leg syndrome Obstructive sleep apnea Congestive heart failure Chronic atrial fibrillation not on anticoagulation due to prior history of GI bleed Hypokalemia 03/27/2019, patient seen and evaluated examined during the rounds as reviewed medications reviewed care plan discussed with the patient at length, patient is breathing more comfortably denies any chest pain cough congestion is improved minimal wheezing is present, I have discussed with her about colonoscopy and endoscopy patient is improved from pulmonary standpoint to get those procedure done however patient accidentally reluctant to get the procedure done she is wants to postpone it until April after her family [facility] This is a 63-year-old female with history of recurrent C. difficile colitis in the past she has admitted into the hospital with abdominal pain and discomfort she has end-stage lung disease secondary severe COPD emphysema lately she has been very short of breath spiking fever up to 102 and have cough with wheezing which is audible without the aid of stethoscope across the room lately she have more of a constipation, abdominal pain has improved there is more concern of COPD now she is being considered considered for EGD and colonoscopy per she is extremely concerned about and reluctant to undergo the procedure she has also positive for hepatitis C infection and there is issue of ulcerative colitis, it appears that she will need those procedure however if they can be safely delayed for 48-72 hours before supplies addition of lung, currently she is on Rocephin and Flagyl, patient is also on breathing treatment with DuoNeb, she will need some steroids to optimize lung function Objective - Vital Signs Vital signs: Vital Signs Temp 98.8 F 03/27/19 02:52 Pulse 85 03/27/19 07:29 Resp 16 03/27/19 04:00 BP 138/78 03/27/19 02:52 Pulse Ox 96 03/27/19 07:29 Intake & Output 03/26/19 03/27/19 03/27/19 18:59 06:59 18:59 Intake Total 640 Balance 640 Intake: Oral 640 Other: Voiding Method Toilet # Voids 3 3 - Exam - Constitutional General appearance: average body habitus, cooperative, disheveled, mild distress - EENT Eyes: anicteric sclerae, EOMI, PERRLA, poor dentition, normal appearance ENT: hard of hearing Ears: bilateral: normal - Neck Neck: lymphadenopathy Carotids: bilateral: upstroke normal, bruit absent Thyroid: bilateral: normal size - Respiratory Respiratory: bilateral: diminished, rhonchi, wheezing, prolonged expiration, negative: CTA, dullness, rales - Cardiovascular Rhythm: regular Heart sounds: normal: S1, S2 - Gastrointestinal General gastrointestinal: decreased bowel sounds, normal bowel sounds, soft - Integumentary Integumentary: normal turgor - Neurologic Neurologic: CNII-XII intact - Musculoskeletal Musculoskeletal: gait normal, generalized weakness, strength equal bilaterally - Psychiatric Psychiatric: A&O x's 3, appropriate affect, intact judgment & insight - Labs CBC & Chem 7: 03/26/19 07:03 03/26/19 07:03 Labs: Abnormal Lab Results - Last 24 Hours (Table) 03/26/19 03/26/19 Range/Units 07:03 07:03 Lymphocytes # 0.8 L (1.0-4.8) k/uL Chloride 97 L (98-107) mmol/L Carbon Dioxide 34 H (22-30) mmol/L Creatinine 0.26 L (0.52-1.04) mg/dL Glucose 159 H (74-99) mg/dL Microbiology - Last 24 Hours (Table) 03/22/19 03:25 Blood Culture - Preliminary Blood No Growth after 120 hours 03/21/19 23:10 Blood Culture - Preliminary Blood No Growth after 120 hours Assessment and Plan Assessment: Acute COPD exacerbation Diffuse abdominal pain differential diagnosis of ulcerative colitis Hepatitis C infection Acute on chronic hypoxic respiratory failure History of C. difficile colitis Restless leg syndrome Obstructive sleep apnea Congestive heart failure Chronic atrial fibrillation not on anticoagulation due to prior history of GI bleed Hypokalemia Plan: Gentle rehydration Bronchodilators IV steroids Overall patient appears to be stable for endoscopy upper and lower however patient is currently refusing and would like to get it done in April after family Re [place] Further recommendations pending plan of care as per clinical response of patient Time with Patient: Greater than 30
[2019-03-27 07:58] LABS: Basophils % (A) 0 %; Eosinophils % (A) 0 %; HCT 36.3 % (34.0-46.0); HGB 11.3 gm/dL (11.4-16.0); Hypochromasia Slight; Lymphocytes % (A) 11 %; MCH 28.9 pg (25.0-35.0); MCHC 31.1 g/dL (31.0-37.0); MCV 92.8 fL (80.0-100.0); Mean Platelet Volume 7.7; Monocytes # (A) 0.4 k/uL (0-1.0); Monocytes % (A) 5 %; Neutrophils # (A) 7.5 k/uL (1.3-7.7); Neutrophils % (A) 83 %; Platelet Count 274 k/uL (150-450); RBC 3.91 m/uL (3.80-5.40); RDW 15.1 % (11.5-15.5)
--- NOTE | 2019-03-27 08:09 | XR ---
EXAMINATION TYPE: XR chest 2V DATE OF EXAM: 03/27/2019 COMPARISON: 03/22/2019 HISTORY: Pneumonia TECHNIQUE: Frontal and lateral views of the chest are obtained. FINDINGS: Cardiac silhouette and pulmonary vasculature are within normal limits. No acute focal cons olidation. No pleural effusion or pneumothorax. Hyperinflation with flattening of hemidiaphragms. IMPRESSION: No acute cardiopulmonary process.
[2019-03-27 08:14] LABS: ALT 11 U/L (9-52); AST 11 U/L (14-36); African American GFR (CKD) >90 (>60 ml/min/1.73 sqM); Albumin 3.9 g/dL (3.5-5.0); Alkaline Phosphatase 59 U/L (38-126); Anion Gap 8 mmol/L; Blood Urea Nitrogen 13 mg/dL (7-17); Calcium 9.5 mg/dL (8.4-10.2); Carbon Dioxide 34 mmol/L (22-30); Chloride 96 mmol/L (98-107); Glucose 128 mg/dL (74-99); Potassium 4.3 mmol/L (3.5-5.1); Sodium 138 mmol/L (137-145); Total Bilirubin 0.3 mg/dL (0.2-1.3); Total Protein 6.7 g/dL (6.3-8.2)
[2019-03-27] MEDS: PANTOPRAZOLE 40 MG TABLET PO SCH (09:24)
[2019-03-27] MEDS: LORATADINE 10 MG TAB PO SCH (09:24)
[2019-03-27] MEDS: metroNIDAZOLE-NS PMX 500 MG in SALINE 1 100ML.BAG IVPB SCH ×2 (09:24→15:45)
[2019-03-27] MEDS: DILTIAZEM CD 240 MG CAP.ER.24H PO SCH (09:25)
[2019-03-27] MEDS: methylPREDNISolone SOD SUCCI 40 MG/ML 1 ML VIAL IV SCH ×2 (09:25→19:57)
[2019-03-27] MEDS: METHIMAZOLE 5 MG TAB PO SCH (09:25)
--- NOTE | 2019-03-27 10:05 | P.PN ---
Subjective Progress Note Date: 03/27/19 This is a 63-year-old female patient presented with abdominal pain and and concerns for reoccurring C. diff. Patient has had multiple admissions in which was treated for C. diff and diarrhea. Patient reports that the pain has been progressing over the 10 days with worsening abdominal pain and decreased oral intake. Patient has a past medical history of CAD, heart failure, COPD, GERD, hypertension, liver disease, myocardial infarction, mitral valve prolapse, arthritis, A. fib not currently on anticoagulation due to bleeding, hep C and anxiety and depression. CT of abdomen and pelvis completed showing multifocal areas moderate wall thickening of the colon suggesting nonspecific colitis. This appears improved as compared to the prior. Left ovarian cyst measuring up to 3.4 cm changes unchanged. GI, infectious disease and pulmonary services have been consulted. [facility] physicians covering on 03/22 and 03/23 On 03/24/2019 patient is alert and oriented 3. Patient is still complaining of some abdominal pain. Patient reports she had no bowel movements throughout the night but does report she had 2 this AM. Patient started having low-grade temps at 99.8. Possible plans for EGD and colonoscopy per GI services. pulmonary services have been consulted due to patient's known chronic condition. Patient does report some shortness of breath. Patient denies chest pain. Patient denies any urinary burning or frequency. On 03/25/2019 patient is alert and oriented 3. Patient reports improvement with shortness of breath. Patient also reports improvement with abdominal pain and diarrhea. Awaiting pulmonary consult. Possible plans for EGD and colonoscopy. Fluids have been hep-locked. At that time patient denies chest pain. Patient denies any nausea vomiting. Patient denies any urinary burning or frequency On 03/26/2019 patient's alert and oriented 3. Patient reports significant improvement with her shortness of breath. Patient has been started on IV steroids per pulmonary services. Discussed case with GI services no plans for inpatient EGD or colonoscopy will follow up outpatient for further evaluation. At this time patient denies any chest pain. Patient denies nausea vomiting or diarrhea. Patient denies any urinary burning or frequency. Patient reports she has not had a bowel movement 24 hours has been tolerating diet. On 03/27/2019 patient's alert and oriented 3. Patient reports she doesn't feel quite ready to be DC'd home. Patient remains on IV steroids. Discussed possible discharge tomorrow. Patient denies any urinary burning or frequency. Patient denies chest pain. Patient denies any nausea vomiting or diarrhea last bowel movement yesterday Objective - Vital Signs Vital signs: Vital Signs Temp 98.0 F 03/27/19 07:00 Pulse 86 03/27/19 07:50 Resp 16 03/27/19 07:00 BP 153/83 03/27/19 07:00 Pulse Ox 96 03/27/19 07:29 Intake & Output 03/26/19 03/27/19 03/27/19 18:59 06:59 18:59 Intake Total 640 80 Balance 640 80 Intake: Oral 640 80 Other: Voiding Method Toilet # Voids 3 3 - Exam Head normocephalic Neck supple Lungs diminished with expiratory wheezing Heart regular rate and rhythm S1-S2, no rub or gallop Abdomen is soft tender to palpation throughout Extremities no edema Neuro alert and orientated to 3 - Labs CBC & Chem 7: 03/27/19 07:06 03/27/19 07:06 Labs: Abnormal Lab Results - Last 24 Hours (Table) 03/27/19 03/27/19 Range/Units 07:06 07:06 Hgb 11.3 L (11.4-16.0) gm/dL Chloride 96 L (98-107) mmol/L Carbon Dioxide 34 H (22-30) mmol/L Creatinine 0.40 L (0.52-1.04) mg/dL Glucose 128 H (74-99) mg/dL AST 11 L (14-36) U/L Microbiology - Last 24 Hours (Table) 03/22/19 03:25 Blood Culture - Preliminary Blood No Growth after 120 hours 03/21/19 23:10 Blood Culture - Preliminary Blood No Growth after 120 hours Assessment and Plan Assessment: 1. Sepsis secondary to acute colitis. Initial white blood cell 20.9. Elevated temp at 102.5 Infectious disease is following. Blood cell has improved to 8.7. Patient made on Rocephin and Flagyl per infectious disease. Specific lab work has been ordered per infectious disease. 2. Abdominal pain. Patient has been evaluated by GI services. Discussed case with GI services no plans for inpatient EGD or colonoscopy. Patient to follow- up outpatient with GI services 3. History of C. diff 4. History of hepatitis C 5. Chronic hypoxic respiratory failure. Maintain on home O2. Pulmonary services have been consulted 6. History of COPD 7. History of congestive heart failure 8. History of hyperthyroidism. TSH level has been ordered. Patient maintained on Tapazole. TSH level 1.830 9. History of chronic back pain 10. History of right low liver lesion. Patient was evaluated by GI services during previous admission recommending outpatient follow-up 11. Indeterminate left ovarian lesion. Patient to follow-up with PCP and RN TRANSPORT for further workup 12. History of atrial fibrillation and not on anticoagulation due to history of GI bleed 13. Hypokalemia. Potassium 3.0 replacement protocol. Repeat potassium 3.6 14. Acute COPD exacerbation. Pulmonary services are following. Patient started on IV steroids DVT prophylaxis heparin. GI prophylaxis Protonix Anticipate discharge in the next 24-48 hours I performed an examination of the patient and discussed their management with the Nurse Practitioner. I have reviewed the Nurse Practitioner's notes and agree with the documented findings and plan of care
[2019-03-27] MEDS: ALPRAZolam 0.25 MG TAB PO PRN ×2 (12:48→21:22)
[2019-03-27 19:43] VITALS: RESP 18
[2019-03-27] MEDS: MELATONIN 5 MG TABLET PO SCH (19:57)
[2019-03-27] MEDS: MONTELUKAST 10 MG TAB PO SCH (19:57)
[2019-03-27] MEDS: CHOLECALCIFEROL 1,000 UNIT TAB PO SCH (19:57)
[2019-03-27] MEDS: PRAMIPEXOLE 0.5 MG TAB PO SCH (19:58)
[2019-03-28] MEDS: metroNIDAZOLE-NS PMX 500 MG in SALINE 1 100ML.BAG IVPB SCH ×2 (00:04→07:54)
[2019-03-28] MEDS: HEPARIN SODIUM,PORCINE 5,000 UNIT/ML 1 ML VIAL SQ SCH ×2 (00:04→07:44)
[2019-03-28] MEDS: IPRATROPIUM-ALBUTEROL 3 ML NEB INHALATION PRN ×3 (03:52→12:09)
[2019-03-28] MEDS: HYDROmorphone 1 MG/ML 1 ML SYRINGE IVP PRN ×4 (04:29→11:44)
[2019-03-28] MEDS: HYDROcodone/APAP 10-325MG 1 EACH TAB PO PRN ×2 (06:24→10:21)
[2019-03-28 06:30] LABS: Basophils # (A) 0.1 k/uL (0-0.2); Basophils % (A) 1 %; Eosinophils % (A) 0 %; HCT 36.8 % (34.0-46.0); HGB 11.2 gm/dL (11.4-16.0); Hypochromasia Slight; Lymphocytes # (A) 0.9 k/uL (1.0-4.8); Lymphocytes % (A) 11 %; MCH 28.3 pg (25.0-35.0); MCHC 30.5 g/dL (31.0-37.0); Mean Platelet Volume 7.4; Monocytes # (A) 0.5 k/uL (0-1.0); Monocytes % (A) 7 %; Neutrophils # (A) 6.7 k/uL (1.3-7.7); Neutrophils % (A) 80 %; Platelet Count 280 k/uL (150-450); RBC 3.96 m/uL (3.80-5.40); RDW 15.2 % (11.5-15.5); WBC 8.3 k/uL (3.8-10.6)
[2019-03-28 07:06] LABS: ALT 8 U/L (9-52); AST 10 U/L (14-36); African American GFR (CKD) >90 (>60 ml/min/1.73 sqM); Albumin 3.8 g/dL (3.5-5.0); Alkaline Phosphatase 53 U/L (38-126); Anion Gap 5 mmol/L; Blood Urea Nitrogen 14 mg/dL (7-17); Calcium 9.4 mg/dL (8.4-10.2); Carbon Dioxide 35 mmol/L (22-30); Chloride 98 mmol/L (98-107); Glucose 141 mg/dL (74-99); Potassium 4.2 mmol/L (3.5-5.1); Sodium 138 mmol/L (137-145); Total Bilirubin 0.2 mg/dL (0.2-1.3); Total Protein 6.5 g/dL (6.3-8.2)
[2019-03-28] MEDS: LORATADINE 10 MG TAB PO SCH (07:53)
[2019-03-28] MEDS: methylPREDNISolone SOD SUCCI 40 MG/ML 1 ML VIAL IV SCH (07:53)
[2019-03-28] MEDS: PANTOPRAZOLE 40 MG TABLET PO SCH (07:53)
[2019-03-28] MEDS: DILTIAZEM CD 240 MG CAP.ER.24H PO SCH (07:54)
[2019-03-28] MEDS: METHIMAZOLE 5 MG TAB PO SCH (07:54)
[2019-03-28 08:02] VITALS: BP 164/91; TEMP 98.7
[2019-03-28] MEDS: FLUTICASONE 110 MCG INHALER INHALATION SCH (08:51)
[2019-03-28] MEDS: FORMOTEROL FUMARATE 20 MCG/2 ML NEBU INHALATION SCH (08:51)
--- NOTE | 2019-03-28 09:31 | P.PN ---
Subjective Progress Note Date: 03/28/19 Principal diagnosis: Acute COPD exacerbation Diffuse abdominal pain lately more concentrated and lower abdominal and rectal pain differential diagnosis of ulcerative colitis Hepatitis C infection Acute on chronic hypoxic respiratory failure History of C. difficile colitis Restless leg syndrome Obstructive sleep apnea Congestive heart failure Chronic atrial fibrillation not on anticoagulation due to prior history of GI bleed Hypokalemia 03/28/2019, patient seen eval examined during the rounds labs reviewed medications reviewed her cough congestion and wheezing have significantly improved, abdominal pain and rectal pain is stable patient continued to refuse endoscopy would like to get after family union in 03/27/2019, patient seen and evaluated examined during the rounds as reviewed medications reviewed care plan discussed with the patient at length, patient is breathing more comfortably denies any chest pain cough congestion is improved minimal wheezing is present, I have discussed with her about colonoscopy and endoscopy patient is improved from pulmonary standpoint to get those procedure done however patient accidentally reluctant to get the procedure done she is wants to postpone it until April after her family Re-Union This is a 63-year-old female with history of recurrent C. difficile colitis in the past she has admitted into the hospital with abdominal pain and discomfort she has end-stage lung disease secondary severe COPD emphysema lately she has been very short of breath spiking fever up to 102 and have cough with wheezing which is audible without the aid of stethoscope across the room lately she have more of a constipation, abdominal pain has improved there is more concern of COPD now she is being considered considered for EGD and colonoscopy per she is extremely concerned about and reluctant to undergo the procedure she has also positive for hepatitis C infection and there is issue of ulcerative colitis, it appears that she will need those procedure however if they can be safely delayed for 48-72 hours before supplies addition of lung, currently she is on Rocephin and Flagyl, patient is also on breathing treatment with DuoNeb, she will need some steroids to optimize lung function Objective - Vital Signs Vital signs: Vital Signs Temp 98.7 F 03/28/19 08:01 Pulse 96 03/28/19 09:12 Resp 18 03/28/19 08:01 BP 164/91 03/28/19 08:01 Pulse Ox 96 03/28/19 08:01 Intake & Output 03/27/19 03/28/19 03/28/19 18:59 06:59 18:59 Intake Total 230 100 120 Balance 230 100 120 Intake: Intake, IV Titration 100 Amount metroNIDAZOLE-NS PMX 500 100 mg In Saline 1 100ml.bag @ 100 mls/hr IVPB Q8HR [facility] Rx#:[id number] Oral 230 120 Other: Voiding Method Toilet # Voids 2 1 - Exam - Constitutional General appearance: average body habitus, cooperative, disheveled, mild distress - EENT Eyes: anicteric sclerae, EOMI, PERRLA, poor dentition, normal appearance ENT: hard of hearing Ears: bilateral: normal - Neck Neck: lymphadenopathy Carotids: bilateral: upstroke normal, bruit absent Thyroid: bilateral: normal size - Respiratory Respiratory: bilateral: diminished, rhonchi, wheezing, prolonged expiration, negative: CTA, dullness, rales, improved compared to yesterday exam - Cardiovascular Rhythm: regular Heart sounds: normal: S1, S2 - Gastrointestinal General gastrointestinal: decreased bowel sounds, normal bowel sounds, soft - Integumentary Integumentary: normal turgor - Neurologic Neurologic: CNII-XII intact - Musculoskeletal Musculoskeletal: gait normal, generalized weakness, strength equal bilaterally - Psychiatric Psychiatric: A&O x's 3, appropriate affect, intact judgment & insight - Labs CBC & Chem 7: 03/28/19 06:19 03/28/19 06:19 Labs: Abnormal Lab Results - Last 24 Hours (Table) 03/28/19 03/28/19 Range/Units 06:19 06:19 Hgb 11.2 L (11.4-16.0) gm/dL MCHC 30.5 L (31.0-37.0) g/dL Lymphocytes # 0.9 L (1.0-4.8) k/uL Carbon Dioxide 35 H (22-30) mmol/L Creatinine 0.30 L (0.52-1.04) mg/dL Glucose 141 H (74-99) mg/dL AST 10 L (14-36) U/L ALT 8 L (9-52) U/L Microbiology - Last 24 Hours (Table) 03/22/19 03:25 Blood Culture - Final Blood No Growth after 144 hours 03/21/19 23:10 Blood Culture - Final Blood No Growth after 144 hours Assessment and Plan Assessment: Acute COPD exacerbation Diffuse abdominal pain differential diagnosis of ulcerative colitis Hepatitis C infection Acute on chronic hypoxic respiratory failure History of C. difficile colitis Restless leg syndrome Obstructive sleep apnea Congestive heart failure Chronic atrial fibrillation not on anticoagulation due to prior history of GI bleed Hypokalemia Plan: Gentle rehydration Bronchodilators IV steroids can be switched to Medrol Dosepak Antibiotics can be switched to oral Agree with discharge planning Overall patient appears to be stable for endoscopy upper and lower however patient is currently refusing and would like to get it done in April after family Re Union Further recommendations pending plan of care as per clinical response of patient Time with Patient: Greater than 30
--- NOTE | 2019-03-28 11:43 | P.DS ---
Providers Date of admission: 03/22/19 04:46 Expected date of discharge: 03/28/19 Attending physician: Ning Lock Consults: 03/22/19 07:12 Consult Physician Routine Consulting Provider: Thomas Ramos Consult Reason/Comments: colitis, history c diff Do you want consulting provider notified?: Yes 03/24/19 08:39 Consult Physician Routine Consulting Provider: Christiano Ferrell Consult Reason/Comments: established patient. Do you want consulting provider notified?: Yes Primary care physician: Ning Lock [facility] Course: Discharge diagnosis 1. Sepsis secondary to acute colitis. Initial white blood cell 20.9. Elevated temp at 102.5 Infectious disease is following. Blood cell has improved to 8.7. Patient made on Rocephin and Flagyl per infectious disease. Specific lab work has been ordered per infectious disease. Discussed case with Dr. aRmos with infectious disease patient may be discharged home on one week of Flagyl and Ceftin. Patient has been cleared for discharge 2. Abdominal pain. Patient has been evaluated by GI services. Discussed case with GI services no plans for inpatient EGD or colonoscopy. Patient to follow- up outpatient with GI services 3. History of C. diff 4. History of hepatitis C 5. Chronic hypoxic respiratory failure. Maintain on home O2. Pulmonary services have been consulted 6. History of COPD 7. History of congestive heart failure 8. History of hyperthyroidism. TSH level has been ordered. Patient maintained on Tapazole. TSH level 1.830 9. History of chronic back pain 10. History of right low liver lesion. Patient was evaluated by GI services during previous admission recommending outpatient follow-up 11. Indeterminate left ovarian lesion. Patient to follow-up with PCP and OB /NEWS VIDEO EDITOR for further workup 12. History of atrial fibrillation and not on anticoagulation due to history of GI bleed 13. Hypokalemia. Potassium 3.0 replacement protocol. Repeat potassium 3.6 14. Acute COPD exacerbation. Pulmonary services are following. Patient started on IV steroids discussed case with Dr. Ferrell with pulmonary services okay for discharge patient will be discharged on prednisone taper Hospital course This is a 63-year-old female patient presented with abdominal pain and and concerns for reoccurring C. diff. Patient has had multiple admissions in which was treated for C. diff and diarrhea. Patient reports that the pain has been progressing over the 10 days with worsening abdominal pain and decreased oral intake. Patient has a past medical history of CAD, heart failure, COPD, GERD, hypertension, liver disease, myocardial infarction, mitral valve prolapse, arthritis, A. fib not currently on anticoagulation due to bleeding, hep C and anxiety and depression. CT of abdomen and pelvis completed showing multifocal areas moderate wall thickening of the colon suggesting nonspecific colitis. This appears improved as compared to the prior. Left ovarian cyst measuring up to 3.4 cm changes unchanged. GI, infectious disease and pulmonary services have been consulted. [facility] group physicians covering on 03/22 and 03/23 On 03/24/2019 patient is alert and oriented 3. Patient is still complaining of some abdominal pain. Patient reports she had no bowel movements throughout the night but does report she had 2 this AM. Patient started having low-grade temps at 99.8. Possible plans for EGD and colonoscopy per GI services. pulmonary services have been consulted due to patient's known chronic condition. Patient does report some shortness of breath. Patient denies chest pain. Patient denies any urinary burning or frequency. On 03/25/2019 patient is alert and oriented 3. Patient reports improvement with shortness of breath. Patient also reports improvement with abdominal pain and diarrhea. Awaiting pulmonary consult. Possible plans for EGD and colonoscopy. Fluids have been hep-locked. At that time patient denies chest pain. Patient denies any nausea vomiting. Patient denies any urinary burning or frequency On 03/26/2019 patient's alert and oriented 3. Patient reports significant improvement with her shortness of breath. Patient has been started on IV steroids per pulmonary services. Discussed case with GI services no plans for inpatient EGD or colonoscopy will follow up outpatient for further evaluation. At this time patient denies any chest pain. Patient denies nausea vomiting or diarrhea. Patient denies any urinary burning or frequency. Patient reports she has not had a bowel movement 24 hours has been tolerating diet. On 03/27/2019 patient's alert and oriented 3. Patient reports she doesn't feel quite ready to be DC'd home. Patient remains on IV steroids. Discussed possible discharge tomorrow. Patient denies any urinary burning or frequency. Patient denies chest pain. Patient denies any nausea vomiting or diarrhea last bowel movement yesterday On 03/28/2019 patient's alert and oriented 3. patient reports she is eager and ready to go home. Discussed case with infectious disease and pulmonary services patient has been cleared for discharge. Per ID recommends 1 week of Flagyl and Ceftin. Patient also be DC'd home on prednisone taper per pulmonary. Patient advised to follow-up closely with PCP and GI services for further plan of care. Patient denies any diarrhea. Patient denies chest pain or shortness breath. Patient denies nausea vomiting or diarrhea. Patient denies any urinary burning or frequency. I performed an examination of the patient and discussed their management with the Nurse Practitioner. I have reviewed the Nurse Practitioner's notes and agree with the documented findings and plan of care Patient Condition at Discharge: Stable Plan - Discharge Summary New Discharge Prescriptions: New Cefuroxime Axetil [Ceftin] 500 mg PO BID 7 Days #14 tab metroNIDAZOLE [Flagyl] 500 mg PO TID 7 Days #21 tab predniSONE 10 mg PO DIRECTED #30 tab Methimazole [Tapazole] 5 mg PO DAILY tab Continue Pramipexole [Mirapex] 0.5 mg PO DAILY Cholecalciferol [Vitamin D3 (25 Mcg = 1000 Iu)] 2,000 unit PO HS Omeprazole 20 mg PO BID Beclomethasone Dipropionate [Qvar 80 mcg] 2 puff INHALATION RT-BID Montelukast [Singulair] 10 mg PO HS #30 tab Ipratropium-Albuterol Nebulize [Duoneb 0.5 mg-3 mg/3 ml Soln] 3 ml INHALATION RT-QID PRN PRN Reason: Shortness Of Breath ALPRAZolam [Xanax] 0.25 mg PO Q8HR PRN 3 Days #9 tab PRN Reason: Anxiety Albuterol Inhaler [Ventolin Hfa Inhaler] 1 - 2 puff INHALATION RT-Q6H PRN PRN Reason: Shortness Of Breath Diltiazem Cd [Cardizem CD] 240 mg PO DAILY 30 Days #30 cap.er.24h Furosemide [Lasix] 40 mg PO DAILY 30 Days #30 tab Loratadine [Claritin] 10 mg PO DAILY Lisinopril [Zestril] 10 mg PO DAILY Ipratropium [place] [Atrovent Hfa] 2 puff INHALATION QID HYDROcodone/APAP 10-325MG [[place] 10-325] 1 tab PO Q6H PRN 3 Days #12 tab PRN Reason: Pain Discharge Medication List Pramipexole [Mirapex] 0.5 mg PO DAILY 09/28/15 [History] Cholecalciferol [Vitamin D3 (25 Mcg = 1000 Iu)] 2,000 unit PO HS 02/02/16 [History] Omeprazole 20 mg PO BID 02/02/16 [History] Beclomethasone Dipropionate [Qvar 80 mcg] 2 puff INHALATION RT-BID 11/14/16 [History] Montelukast [Singulair] 10 mg PO HS #30 tab 02/12/17 [Rx] Ipratropium-Albuterol Nebulize [Duoneb 0.5 mg-3 mg/3 ml Soln] 3 ml INHALATION RT-QID PRN 05/31/18 [History] ALPRAZolam [Xanax] 0.25 mg PO Q8HR PRN 3 Days #9 tab 07/12/18 [Rx] Albuterol Inhaler [Ventolin Hfa Inhaler] 1 - 2 puff INHALATION RT-Q6H PRN 11/09/18 [History] Diltiazem Cd [Cardizem CD] 240 mg PO DAILY 30 Days #30 cap.er.24h 02/14/19 [Rx] Furosemide [Lasix] 40 mg PO DAILY 30 Days #30 tab 02/14/19 [Rx] Ipratropium [place] [Atrovent Hfa] 2 puff INHALATION QID 03/22/19 [History] Lisinopril [Zestril] 10 mg PO DAILY 03/22/19 [History] Loratadine [Claritin] 10 mg PO DAILY 03/22/19 [History] Cefuroxime Axetil [Ceftin] 500 mg PO BID 7 Days #14 tab 03/28/19 [Rx] HYDROcodone/APAP 10-325MG [[place] 10-325] 1 tab PO Q6H PRN 3 Days #12 tab 03/28/19 [Rx] Methimazole [Tapazole] 5 mg PO DAILY tab 03/28/19 [Rx] metroNIDAZOLE [Flagyl] 500 mg PO TID 7 Days #21 tab 03/28/19 [Rx] predniSONE 10 mg PO DIRECTED #30 tab 03/28/19 [Rx] Follow up Appointment(s)/Referral(s): Bruna Goldsmith MD [STAFF PHYSICIAN] - As Needed Ning Lock MD [Primary Care Provider] - 03/28/19 10:45 am Christiano Ferrell MD [STAFF PHYSICIAN] - 1 Week (Office closed Sunday. Please call to make your follow-up appt. Thank you.) Activity/Diet/Wound Care/Special Instructions: Patient to adhere to previously discussed treatment plan and will take medication(s) as directed. Patient to follow up with PCP in 1-2 days. Patient to return to ED if symptoms do not improve. Follow-up with primary care provider tomorrow. Return to ER if condition worsens. Discharge Disposition: HOME WITH HOME HEALTH SERVICES
[2019-03-28 12:26] VITALS: PULSE 100
[2019-03-28 14:57] VITALS: BMI 22.8
== END 2019-03-28 16:00 | disposition home health service (06) | DRG 871 ==
LOC: EC 21:48 → 4SSUR 03-22 04:46
PROVIDERS: ADMIT Internal Medicine; ATTEND Internal Medicine
DX: A41.9 Sepsis, unspecified organism (principal); J96.21 Acute and chronic respiratory failure with hypoxia; K51.90 Ulcerative colitis, unspecified, without complications; F32.9 Major depressive disorder, single episode, unspecified; G25.81 Restless legs syndrome; G47.33 Obstructive sleep apnea (adult) (pediatric); G89.29 Other chronic pain; I11.0 Hypertensive heart disease with heart failure; I50.9 Heart failure, unspecified; J43.9 Emphysema, unspecified; K21.9 Gastro-esophageal reflux disease without esophagitis; I34.1 Nonrheumatic mitral (valve) prolapse; M81.0 Age-related osteoporosis without current pathological fracture; B18.2 Chronic viral hepatitis C; I48.2 Chronic atrial fibrillation; F43.10 Post-traumatic stress disorder, unspecified; N83.202 Unspecified ovarian cyst, left side; E87.6 Hypokalemia; I25.10 Atherosclerotic heart disease of native coronary artery without angina pectoris; E05.90 Thyrotoxicosis, unspecified without thyrotoxic crisis or storm; F40.240 Claustrophobia; J47.9 Bronchiectasis, uncomplicated; M41.9 Scoliosis, unspecified; I25.2 Old myocardial infarction; Z99.81 Dependence on supplemental oxygen; Z87.19 Personal history of other diseases of the digestive system; Z85.41 Personal history of malignant neoplasm of cervix uteri; Z87.440 Personal history of urinary (tract) infections; Z86.19 Personal history of other infectious and parasitic diseases; Z79.899 Other long term (current) drug therapy; Z90.49 Acquired absence of other specified parts of digestive tract; Z79.51 Long term (current) use of inhaled steroids; Z88.1 Allergy status to other antibiotic agents; Z88.2 Allergy status to sulfonamides; Z87.891 Personal history of nicotine dependence; Z82.49 Family history of ischemic heart disease and other diseases of the circulatory system; Z80.3 Family history of malignant neoplasm of breast; Z80.7 Family history of other malignant neoplasms of lymphoid, hematopoietic and related tissues; Z80.8 Family history of malignant neoplasm of other organs or systems; Z80.1 Family history of malignant neoplasm of trachea, bronchus and lung; Z80.0 Family history of malignant neoplasm of digestive organs
CPT/HCPCS: 36415; 71046; 74177; 80053; 81003; 82103; 82104; 82784; 82785; 83605; 83690; 83735; 83880; 84443; 84484; 85025; 86003; 87040; 87324; 93005; 94640; 94760; 96361; 96374; 96375; 99285

== ENCOUNTER 2019-05-07 12:57 | Inpatient (IN) | payer OTHER ==
[2019-05-07] MEDS ORDERED: SODIUM CHLORIDE 0.9% 1,000 ML IV STA (13:12)
[2019-05-07] MEDS ORDERED: methylPREDNISolone SOD SUCCI 125 MG/2 ML VIAL IV STA (13:12)
[2019-05-07] MEDS ORDERED: MAGNESIUM SULFATE-D5W PMX 1 GM in DEXTROSE/WATER 1 100ML.BAG IVPB STA (13:12)
[2019-05-07] MEDS ORDERED: IPRATROPIUM-ALBUTEROL 3 ML NEB INHALATION STA ×3 (13:12→15:11)
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
[2019-05-07 13:36] LABS: Basophils # (A) 0.1 k/uL (0-0.2); Basophils % (A) 0 %; Eosinophils # (A) 0.1 k/uL (0-0.7); Eosinophils % (A) 1 %; HCT 40.8 % (34.0-46.0); Lymphocytes # (A) 0.8 k/uL (1.0-4.8); Lymphocytes % (A) 4 %; MCH 29.4 pg (25.0-35.0); MCHC 31.9 g/dL (31.0-37.0); MCV 92.2 fL (80.0-100.0); Mean Platelet Volume 7.2; Monocytes # (A) 0.6 k/uL (0-1.0); Monocytes % (A) 3 %; Neutrophils # (A) 18.7 k/uL (1.3-7.7); Neutrophils % (A) 91 %; Platelet Count 225 k/uL (150-450); RBC 4.42 m/uL (3.80-5.40); RDW 15.6 % (11.5-15.5); WBC 20.5 k/uL (3.8-10.6)
[2019-05-07 13:47] LABS: D-Dimer 0.22 mg/L FEU (<0.60); INR 0.9 (<1.2); Partial Thromboplastin Time 27.4 sec (22.0-30.0); Prothrombin Time 9.9 sec (9.0-12.0)
[2019-05-07 13:49] LABS: ALT 18 U/L (9-52); AST 16 U/L (14-36); African American GFR (CKD) >90 (>60 ml/min/1.73 sqM); Albumin 4.6 g/dL (3.5-5.0); Alkaline Phosphatase 96 U/L (38-126); Anion Gap 9 mmol/L; Blood Urea Nitrogen 7 mg/dL (7-17); Calcium 9.6 mg/dL (8.4-10.2); Carbon Dioxide 34 mmol/L (22-30); Chloride 93 mmol/L (98-107); Creatine Kinase 23 U/L (30-135); Glucose 123 mg/dL (74-99); Magnesium 1.8 mg/dL (1.6-2.3); Potassium 4.4 mmol/L (3.5-5.1); Sodium 136 mmol/L (137-145); Total Bilirubin 0.4 mg/dL (0.2-1.3); Total Protein 7.6 g/dL (6.3-8.2)
[2019-05-07] MEDS ORDERED: KETOROLAC 30 MG/ML 1 ML VIAL IVP STA (13:58)
[2019-05-07] MEDS ORDERED: HYDROmorphone 1 MG/ML 1 ML SYRINGE IVP STA (14:09)
[2019-05-07] MEDS ORDERED: ACETAMINOPHEN TAB 325 MG TAB PO PRN (15:40)
[2019-05-07] MEDS: IPRATROPIUM-ALBUTEROL 3 ML NEB INHALATION SCH ×2 (15:40→19:26)
[2019-05-07] MEDS: SODIUM CHLORIDE 0.9% 1,000 ML IV SCH (15:46)
--- NOTE | 2019-05-07 15:46 | XR ---
EXAMINATION TYPE: XR chest 2V DATE OF EXAM: 05/07/2019 COMPARISON: Chest x-ray March 27, 2019 and older studies. HISTORY: Difficulty in breathing TECHNIQUE: Frontal and lateral views of the chest are obtained. FINDINGS: There is chronic parenchymal change without suspicious new focal air space opacity, pleura l effusion, or pneumothorax seen. The cardiac silhouette size is stable and upper limits of normal w ith atherosclerotic aorta. Underlying scoliosis centered in the upper lumbar spine is redemonstrated. Osseous structures remain demineralized. IMPRESSION: Chronic changes without acute pulmonary process.
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
[2019-05-07] MEDS ORDERED: PIPERACILLIN-TAZOBACTAM 3.375 GM in SODIUM CHLORIDE 0.9% 100 ML IVPB STA (16:41)
[2019-05-07] MEDS: HYDROcodone/APAP 10-325MG 1 EACH TAB PO PRN ×2 (17:35→23:19)
[2019-05-07] MEDS: methylPREDNISolone SOD SUCCI 125 MG/2 ML VIAL IV SCH ×2 (17:35→23:20)
[2019-05-07] MEDS: MONTELUKAST 10 MG TAB PO SCH (20:45)
[2019-05-07] MEDS: CHOLECALCIFEROL 1,000 UNIT TAB PO SCH (20:45)
[2019-05-07] MEDS: ALPRAZolam 0.25 MG TAB PO PRN (20:46)
[2019-05-07] MEDS: HYDROmorphone 0.5 MG/0.5 ML SYRINGE IVP PRN (20:46)
[2019-05-07] MEDS ORDERED: PRAMIPEXOLE 0.5 MG TAB PO SCH (21:00)
[2019-05-07] MEDS: DILTIAZEM CD 240 MG CAP.ER.24H PO SCH (22:17)
[2019-05-08] MEDS: IPRATROPIUM-ALBUTEROL 3 ML NEB INHALATION SCH ×7 (00:27→23:22)
[2019-05-08] MEDS: HYDROmorphone 0.5 MG/0.5 ML SYRINGE IVP PRN ×7 (01:08→23:33)
[2019-05-08] MEDS: ONDANSETRON 4 MG/2 ML VIAL IVP PRN ×2 (01:21→23:17)
[2019-05-08] MEDS: SODIUM CHLORIDE 0.9% 1,000 ML IV SCH ×3 (04:02→23:12)
[2019-05-08] MEDS: HYDROcodone/APAP 10-325MG 1 EACH TAB PO PRN ×3 (05:28→17:46)
[2019-05-08] MEDS: ALPRAZolam 0.25 MG TAB PO PRN ×2 (05:30→19:30)
[2019-05-08] MEDS: methylPREDNISolone SOD SUCCI 125 MG/2 ML VIAL IV SCH ×4 (05:33→23:33)
[2019-05-08 07:19] LABS: Basophils % (A) 0 %; Eosinophils % (A) 0 %; HCT 38.2 % (34.0-46.0); HGB 12.3 gm/dL (11.4-16.0); Hypochromasia Slight; Lymphocytes # (A) 0.8 k/uL (1.0-4.8); Lymphocytes % (A) 5 %; MCH 29.8 pg (25.0-35.0); MCHC 32.1 g/dL (31.0-37.0); Mean Platelet Volume 7.3; Monocytes # (A) 0.4 k/uL (0-1.0); Monocytes % (A) 3 %; Neutrophils # (A) 13.4 k/uL (1.3-7.7); Neutrophils % (A) 91 %; Platelet Count 215 k/uL (150-450); RBC 4.11 m/uL (3.80-5.40); RDW 15.5 % (11.5-15.5); WBC 14.7 k/uL (3.8-10.6)
[2019-05-08] MEDS: ENOXAPARIN 40 MG/0.4 ML SYRINGE SQ SCH (07:47)
[2019-05-08] MEDS: PANTOPRAZOLE 40 MG TABLET PO SCH (07:51)
[2019-05-08] MEDS: METHIMAZOLE 5 MG TAB PO SCH (07:51)
[2019-05-08] MEDS ORDERED: AZITHROMYCIN 500 MG in SODIUM CHLORIDE 0.9% 250 ML IVPB SCH (09:00)
[2019-05-08] MEDS ORDERED: FAMOTIDINE 20 MG TAB PO SCH (09:00)
[2019-05-08 09:20] LABS: ALT 11 U/L (9-52); AST 16 U/L (14-36); African American GFR (CKD) >90 (>60 ml/min/1.73 sqM); Albumin 3.8 g/dL (3.5-5.0); Alkaline Phosphatase 90 U/L (38-126); Anion Gap 8 mmol/L; Blood Urea Nitrogen 9 mg/dL (7-17); Calcium 9.3 mg/dL (8.4-10.2); Carbon Dioxide 34 mmol/L (22-30); Chloride 95 mmol/L (98-107); Glucose 149 mg/dL (74-99); Potassium 4.4 mmol/L (3.5-5.1); Sodium 137 mmol/L (137-145); Total Bilirubin 0.2 mg/dL (0.2-1.3); Total Protein 6.8 g/dL (6.3-8.2)
--- NOTE | 2019-05-08 10:43 | P.PN ---
Subjective Progress Note Date: 05/08/19 This is a 64-year-old female well-known to my services. Patient presented with complaints of increased shortness of breath. Patient has known advanced COPD and wears home O2 but states that her shortness of breath had been progressively increasing over the past few days with having low-grade temps. Patient reports that she is having increased sputum production and cough. Patient does have a known past medical history of coronary artery disease, cancer, heart failure, COPD, GERD, hypertension, liver disease, mitral valve prolapse, paroxysmal atrial fibrillation which she's not on anticoagulation due to previous GI bleed, C. diff, anxiety and depression. EKG completed showing normal sinus rhythm. Two-view chest x-ray has been ordered. Patient started on Solu-Medrol and breathing treatments. Patient reports improvement already with her shortness of breath. 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 KERRIE Webster has been consulted sputum culture ordered. Patient does have a elevated white blood cell count 20.5. Patient denies any recent steroids. D-dimer 0.22. At this time patient denies chest pain. Patient denies nausea vomiting or diarrhea. Patient denies any urinary burning or frequency On 05/08/2018 patient is alert and oriented 3. Patient started some shortness of breath with wheezing. Patient remains on Solu-Medrol and DuoNeb breathing treatments. Pulmonary services have been consulted. White blood cell improving to 14.7. At This time patient denies chest pain. Patient denies nausea vomiting or diarrhea. Patient denies any urinary burning or frequency Objective - Vital Signs Vital signs: Vital Signs Temp 98 F 05/08/19 07:00 Pulse 94 05/08/19 08:37 Resp 16 05/08/19 07:00 BP 133/67 05/08/19 07:00 Pulse Ox 95 05/08/19 07:00 Intake & Output 05/07/19 05/08/19 05/08/19 18:59 06:59 18:59 Intake Total 480 240 Balance 480 240 Weight 50.349 kg Intake: Oral 480 240 Other: Voiding Method Bedside Commode # Voids 1 - Exam Head normocephalic Neck supple Lungs diminished bilaterally with expiratory wheezing Heart regular rate and rhythm S1-S2, no rub or gallop Abdomen is soft nontender nondistended positive bowel sounds no hepatosplenomegaly Extremities no edema Neuro alert and orientated to 3 - Labs CBC & Chem 7: 05/08/19 06:54 05/08/19 06:54 Labs: Abnormal Lab Results - Last 24 Hours (Table) 05/07/19 05/07/19 05/08/19 Range/Units 13:20 13:20 06:54 WBC 20.5 H 14.7 H (3.8-10.6) k/uL RDW 15.6 H (11.5-15.5) % Neutrophils # 18.7 H 13.4 H (1.3-7.7) k/uL Lymphocytes # 0.8 L 0.8 L (1.0-4.8) k/uL Sodium 136 L (137-145) mmol/L Chloride 93 L (98-107) mmol/L Carbon Dioxide 34 H (22-30) mmol/L Creatinine 0.31 L (0.52-1.04) mg/dL Glucose 123 H (74-99) mg/dL Creatine Kinase 23 L (30-135) U/L 05/08/19 Range/Units 06:54 WBC (3.8-10.6) k/uL RDW (11.5-15.5) % Neutrophils # (1.3-7.7) k/uL Lymphocytes # (1.0-4.8) k/uL Sodium (137-145) mmol/L Chloride 95 L (98-107) mmol/L Carbon Dioxide 34 H (22-30) mmol/L Creatinine 0.28 L (0.52-1.04) mg/dL Glucose 149 H (74-99) mg/dL Creatine Kinase (30-135) U/L Microbiology - Last 24 Hours (Table) 05/07/19 19:36 Gram Stain - Preliminary Sputum Sputum Culture - Preliminary Assessment and Plan Assessment: 1. Increased shortness of breath related to his COPD exacerbation. Chest x-ray has been ordered sputum culture ordered pulmonary service is consulted. Patient started on Solu-Medrol and breathing treatments. Chest x-ray completed showing chronic changes without acute pulmonary process. 2. History of chronic hypoxic respiratory failure. Patient maintained on home O2 3. History of COPD 4. History of C. diff patient has been previously treated 5. History of hyperthyroidism. Patient maintained on Tapazole 6. History of chronic back pain 7. History of liver lesions. Patient was evaluated by GI services to increase admission patient to follow-up outpatient with GI services 8. History of left ovarian lesion. 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 History of paroxysmal atrial fibrillation. Not on anticoagulation due to h istory of GI bleed DVT prophylaxis Lovenox. GI prophylaxis Pepcid PT OT consult I performed an examination of the patient and discussed their management with the Nurse Practitioner. I have reviewed the Nurse Practitioner's notes and agree with the documented findings and plan of care
--- NOTE | 2019-05-08 15:26 | XR ---
EXAMINATION TYPE: XR thoracic spine complete DATE OF EXAM: 05/08/2019 COMPARISON: None HISTORY: Increased back pain TECHNIQUE: 3 views thoracic spine FINDINGS: 12 thoracic type vertebral bodies. Pedicles are intact. The body heights appear preserved. There is a scoliosis present with a convexity to the left centered at T12-L1. Compensatory right scol iosis is present in the mid thoracic spine. Disc heights appear preserved. IMPRESSION: 1. Cholecystitis
--- NOTE | 2019-05-08 15:27 | XR ---
EXAMINATION TYPE: XR cervical spine comp DATE OF EXAM: 05/08/2019 COMPARISON: None HISTORY: Pain TECHNIQUE: 5 view cervical spine FINDINGS: Prevertebral space is normal. There is loss of disc height C5-6 C6-7. Posterior spinal lame llar line is intact. Facet degenerative changes are present. There is some foraminal narrowing presen t C3-4 on the left and C5-6 C6-7 on the left. Mild right foraminal narrowing C5-6 on the right is pre sent. IMPRESSION: 1. Mild degenerative changes with foraminal narrowing discussed above
[2019-05-08] MEDS: BUDESONIDE 0.5 MG/2 ML NEBU INHALATION SCH (19:36)
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
[2019-05-08] MEDS: CHOLECALCIFEROL 1,000 UNIT TAB PO SCH (23:12)
[2019-05-08] MEDS: MONTELUKAST 10 MG TAB PO SCH (23:12)
[2019-05-08] MEDS: DILTIAZEM CD 240 MG CAP.ER.24H PO SCH (23:12)
[2019-05-09] MEDS: HYDROcodone/APAP 10-325MG 1 EACH TAB PO PRN ×4 (01:16→20:37)
[2019-05-09] MEDS: IPRATROPIUM-ALBUTEROL 3 ML NEB INHALATION SCH ×5 (03:42→21:09)
[2019-05-09] MEDS: HYDROmorphone 0.5 MG/0.5 ML SYRINGE IVP PRN ×6 (04:05→23:31)
[2019-05-09] MEDS: methylPREDNISolone SOD SUCCI 125 MG/2 ML VIAL IV SCH ×4 (06:08→23:29)
[2019-05-09] MEDS: ENOXAPARIN 40 MG/0.4 ML SYRINGE SQ SCH (07:24)
[2019-05-09] MEDS: SODIUM CHLORIDE 0.9% 1,000 ML IV SCH ×2 (07:25→14:29)
[2019-05-09] MEDS: METHIMAZOLE 5 MG TAB PO SCH (07:27)
[2019-05-09] MEDS: PANTOPRAZOLE 40 MG TABLET PO SCH (07:27)
[2019-05-09 07:34] LABS: Basophils # (A) 0.2 k/uL (0-0.2); Basophils % (A) 1 %; Eosinophils % (A) 0 %; HCT 37.7 % (34.0-46.0); HGB 11.7 gm/dL (11.4-16.0); Hypochromasia Moderate; Lymphocytes # (A) 0.5 k/uL (1.0-4.8); Lymphocytes % (A) 4 %; MCHC 31.1 g/dL (31.0-37.0); MCV 93.2 fL (80.0-100.0); Mean Platelet Volume 7.7; Monocytes # (A) 0.4 k/uL (0-1.0); Monocytes % (A) 3 %; Neutrophils # (A) 11.4 k/uL (1.3-7.7); Neutrophils % (A) 90 %; Platelet Count 240 k/uL (150-450); RBC 4.04 m/uL (3.80-5.40); RDW 15.2 % (11.5-15.5); WBC 12.7 k/uL (3.8-10.6)
[2019-05-09 07:37] LABS: ALT 13 U/L (9-52); AST 12 U/L (14-36); African American GFR (CKD) >90 (>60 ml/min/1.73 sqM); Albumin 3.8 g/dL (3.5-5.0); Alkaline Phosphatase 75 U/L (38-126); Anion Gap 6 mmol/L; Blood Urea Nitrogen 12 mg/dL (7-17); Calcium 9.2 mg/dL (8.4-10.2); Carbon Dioxide 37 mmol/L (22-30); Chloride 97 mmol/L (98-107); Glucose 150 mg/dL (74-99); Sodium 140 mmol/L (137-145); Total Bilirubin 0.3 mg/dL (0.2-1.3); Total Protein 6.6 g/dL (6.3-8.2)
[2019-05-09] MEDS: BUDESONIDE 0.5 MG/2 ML NEBU INHALATION SCH ×2 (08:12→21:09)
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
[2019-05-09] MEDS: ONDANSETRON 4 MG/2 ML VIAL IVP PRN (09:45)
[2019-05-09] MEDS: ALPRAZolam 0.25 MG TAB PO PRN ×2 (09:45→23:31)
--- NOTE | 2019-05-09 10:14 | P.PN ---
Subjective Progress Note Date: 05/09/19 This is a 64-year-old female well-known to my services. Patient presented with complaints of increased shortness of breath. Patient has known advanced COPD and wears home O2 but states that her shortness of breath had been progressively increasing over the past few days with having low-grade temps. Patient reports that she is having increased sputum production and cough. Patient does have a known past medical history of coronary artery disease, cancer, heart failure, COPD, GERD, hypertension, liver disease, mitral valve prolapse, paroxysmal atrial fibrillation which she's not on anticoagulation due to previous GI bleed, C. diff, anxiety and depression. EKG completed showing normal sinus rhythm. Two-view chest x-ray has been ordered. Patient started on Solu-Medrol and breathing treatments. Patient reports improvement already with her shortness of breath. 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 Patient does have a elevated white blood cell count 20.5. Patient denies any recent steroids. D-dimer 0.22. At this time patient denies chest pain. Patient denies nausea vomiting or diarrhea. Patient denies any urinary burning or frequency On 05/08/2019 patient is alert and oriented 3. Patient started some shortness of breath with wheezing. Patient remains on Solu-Medrol and DuoNeb breathing treatments. Pulmonary services have been consulted. White blood cell improving to 14.7. At This time patient denies chest pain. Patient denies nausea vomiting or diarrhea. Patient denies any urinary burning or frequency On 05/09/2019 patient is alert and oriented 3. Patient reports improvement with her shortness of breath. White blood cell improving to 12.7. Patient remains on IV steroids for COPD exacerbation. Pulmonary services are following. At this time patient denies chest pain. Patient denies nausea vomiting or diarrhea. Patient denies any urinary burning or frequency Objective - Vital Signs Vital signs: Vital Signs Temp 98.2 F 05/09/19 07:00 Pulse 74 05/09/19 08:12 Resp 15 05/09/19 07:00 BP 135/82 05/09/19 07:00 Pulse Ox 97 05/09/19 07:00 Intake & Output 05/08/19 05/09/19 05/09/19 18:59 06:59 18:59 Intake Total 480 240 Balance 480 240 Intake: Oral 480 240 Other: Voiding Method Bedside Commode Bedside Commode # Voids 1 1 1 - Exam Head normocephalic Neck supple Lungs diminished bilaterally with expiratory wheezing Heart regular rate and rhythm S1-S2, no rub or gallop Abdomen is soft nontender nondistended positive bowel sounds no hepatosplenome carlos Extremities no edema Neuro alert and orientated to 3 - Labs CBC & Chem 7: 05/09/19 06:55 05/09/19 06:55 Labs: Abnormal Lab Results - Last 24 Hours (Table) 05/09/19 05/09/19 Range/Units 06:55 06:55 WBC 12.7 H (3.8-10.6) k/uL Neutrophils # 11.4 H (1.3-7.7) k/uL Lymphocytes # 0.5 L (1.0-4.8) k/uL Chloride 97 L (98-107) mmol/L Carbon Dioxide 37 H (22-30) mmol/L Creatinine 0.34 L (0.52-1.04) mg/dL Glucose 150 H (74-99) mg/dL AST 12 L (14-36) U/L Microbiology - Last 24 Hours (Table) 05/07/19 13:20 Blood Culture - Preliminary Blood No Growth after 24 hours 05/07/19 19:36 Gram Stain - Preliminary Sputum Sputum Culture - Preliminary Assessment and Plan Assessment: 1. Increased shortness of breath related to his COPD exacerbation. Chest x-ray has been ordered sputum culture ordered pulmonary service is consulted. Patient started on Solu-Medrol and breathing treatments. Chest x-ray completed showing chronic changes without acute pulmonary process. Per pulmonary services co ntinue Solu-Medrol hold off on antibiotics. 2. History of chronic hypoxic respiratory failure. Patient maintained on home O2 3. History of COPD 4. History of C. diff patient has been previously treated. Infectious disease is following 5. History of hyperthyroidism. Patient maintained on Tapazole 6. History of chronic back pain 7. History of liver lesions. Patient was evaluated by GI services to increase admission patient to follow-up outpatient with GI services 8. History of left ovarian lesion. Discussed with PCP patient to follow-up outpatient with [facility] 9. History of paroxysmal atrial fibrillation. Not on anticoagulation due to history of GI bleed 10. Umbilicus hernia. Surgical services have been consulted 11. Back and neck pain. Thoracic and cervical x-rays ordered DVT prophylaxis Lovenox. GI prophylaxis Pepcid PT OT consult I performed an examination of the patient and discussed their management with the Nurse Practitioner. I have reviewed the Nurse Practitioner's notes and agree with the documented findings and plan of care
--- NOTE | 2019-05-09 11:13 | PN ---
PROGRESS NOTE She was seen again on 05/09/2019. She has been hemodynamically stable. She is less short of breath. PHYSICAL EXAMINATION: On physical examination, her vitals are stable. She is afebrile. Her chest reveals prolonged exhalation with expiratory wheeze. Fair air entry. Cardiovascular system reveals an S1, S2. Abdomen is soft. There is no edema. IMPRESSION AT THIS TIME: 1. Asthma with chronic obstructive pulmonary disease with acute exacerbation. 2. Recent Clostridium difficile colitis. Would defer to ID regarding antibiotics and would continue her on IV and aerosolized steroids with leukotriene receptor antagonists. Continue bronchodilators. Increase her activity level. Depending on how she does, further changes may need to be made to her regimen. She will need to follow up closely as an outpatient once she is discharged which has not happened in the last few months as she has had repeated admissions to the hospital for exacerbation of her asthma, but also Clostridium difficile colitis. I would like to thank you for allowing me the privilege of participating in the care of my patient. CHRIS / MONICA: [id number] /
[2019-05-09 11:38] LABS: Glucose,Whole Blood 102 mg/dL (75-99)
[2019-05-09] MEDS: INSULIN ASPART (NovoLOG) 100 UNIT/ML VIAL SQ SCH ×3 (11:50→20:38)
--- NOTE | 2019-05-09 13:51 | P.PN ---
Subjective Progress Note Date: 05/09/19 This is a pleasant 64-year-old lady with multiple medical comorbidities she's currently in the hospital for COPD exacerbation. She has been experiencing pain in her umbilical hernia site she has a known recurrent umbilical hernia at that site. She's had previous repairs in the past. There is always just been fat- containing umbilical hernia. She's not having any obstructive signs at this time. Her last bowel movement was 2 days ago however that's normal for her. She does not feel any nausea or vomiting or increased abdominal distention at this time. Objective - Vital Signs Vital signs: Vital Signs Temp 98.2 F 05/09/19 07:00 Pulse 74 05/09/19 11:43 Resp 15 05/09/19 07:00 BP 135/82 05/09/19 07:00 Pulse Ox 97 05/09/19 07:00 Intake & Output 05/08/19 05/09/19 05/09/19 18:59 06:59 18:59 Intake Total 480 240 Balance 480 240 Intake: Oral 480 240 Other: Voiding Method Bedside Commode Bedside Commode # Voids 1 1 1 - Constitutional General appearance: Present: cooperative - Respiratory Details: Mildly labored breathing, audible wheeze, using accessory muscles - Cardiovascular Rhythm: regular - Gastrointestinal Gastrointestinal Comment(s): Soft nondistended minor tenderness palpation over her umbilicus. There is a partially reducible umbilical hernia. No skin changes. - Psychiatric Psychiatric: Present: A&O x's 3 - Labs CBC & Chem 7: 05/09/19 06:55 05/09/19 06:55 Labs: Abnormal Lab Results - Last 24 Hours (Table) 05/09/19 05/09/19 05/09/19 Range/Units 06:55 06:55 11:36 WBC 12.7 H (3.8-10.6) k/uL Neutrophils # 11.4 H (1.3-7.7) k/uL Lymphocytes # 0.5 L (1.0-4.8) k/uL Chloride 97 L (98-107) mmol/L Carbon Dioxide 37 H (22-30) mmol/L Creatinine 0.34 L (0.52-1.04) mg/dL Glucose 150 H (74-99) mg/dL POC Glucose (mg/dL) 102 H (75-99) mg/dL AST 12 L (14-36) U/L Microbiology - Last 24 Hours (Table) 05/07/19 13:20 Blood Culture - Preliminary Blood No Growth after 24 hours Assessment and Plan Assessment: Umbilical hernia partially reducible Plan: Patient would be extremely high risk for surgery secondary to her COPD exacerbation. She does not have obstructive signs at this time. We will obtain CT abdomen and pelvis to further evaluate umbilical hernia. So long as the patient does not have strangulated bowel I do not have any plans for surgery at this time.
[2019-05-09] MEDS: IOPAMIDOL CONTRAST (ORAL USE) VIAL PO PRN ×2 (14:29→15:25)
--- NOTE | 2019-05-09 16:39 | CT ---
EXAMINATION TYPE: CT abdomen pelvis w con DATE OF EXAM: 05/09/2019 COMPARISON: 03/22/2019 HISTORY: Ventral and right lower quadrant hernia. CT DLP: 759.9 mGycm Automated exposure control for dose reduction was used. TECHNIQUE: Helical acquisition of images was performed from the lung bases through the pelvis. CONTRAST: Performed with Oral Contrast and with IV Contrast, patient injected with 100 mL of Isovue 300. FINDINGS: The lung bases are clear of consolidation. There is no pleural effusion. Heart size is normal. There is no pericardial effusion. Stomach appears normal. Liver shows no focal defect. The bile ducts are not dilated. Spleen appears n ormal. There is no pancreatic mass. There is no adrenal mass. Kidneys show satisfactory contrast opacification. There is no hydronephrosi s. Abdominal aorta is atheromatous. Bladder distends smoothly. There is no retroperitoneal adenopathy . Ureters are not dilated. Uterus is anteverted. There is oral contrast in the proximal small bowel that appears fairly normal. There are dilated fluid-filled loops of distal small bowel. There is large amount of retained fecal m aterial throughout the large bowel. There is no inguinal hernia. There is mild thoracolumbar levoscol iosis. There is mild spondylotic change in the lower lumbar spine. Bony pelvis is intact. There is no free air. There is no mesenteric edema. There is no ascites. Appendix is not seen. No sig n of thickened appendix. IMPRESSION: THERE IS SIGNIFICANT CONSTIPATION. THERE IS INCREASED FECAL MATERIAL THROUGHOUT THE LARGE BOWEL [place] RED TO OLD EXAM. THERE IS DECREASE IN THE RECTAL FECAL IMPACTION COMPARED TO LAST EXAM. DILATED DISTA L SMALL BOWEL SUGGESTIVE OF PARTIAL MECHANICAL OBSTRUCTION. NO FREE AIR.
[2019-05-09 16:57] LABS: Glucose,Whole Blood 102 mg/dL (75-99)
--- NOTE | 2019-05-09 17:54 | PN ---
PROGRESS NOTE DATE OF SERVICE: 05/09/2019. REASON FOR FOLLOWUP: Tracheobronchitis with a question of possible infection. INTERVAL HISTORY: The patient is currently afebrile. The patient has been breathing more comfortably. She continues to have a cough and is bringing up some sputum, but no worsening, no hemoptysis, no chest pain, no nausea, no vomiting, no abdominal pain, no diarrhea. PHYSICAL EXAMINATION: Blood pressure 153/77 with a pulse of 87, temperature 98.3. She is 94% on 2 L nasal cannula. General description is a middle-aged female up in the room in no distress. RESPIRATORY SYSTEM: Unlabored breathing with decreased intensity of breath sounds. No wheeze. HEART: S1, S2. Regular rate and rhythm. ABDOMEN: Soft. No tenderness. LABS: White count down to 12,000. DIAGNOSTIC IMPRESSION AND PLAN: Patient admitted to hospital with difficulty in breathing, likely secondary to asthma/chronic obstructive pulmonary disease exacerbation with tracheobronchitis. Clinically doubt pneumonia. Patient did have elevated white count, more likely reactive, and it has shown a downward trend. Currently off antibiotic therapy. Will monitor the patient closely off antibiotics and continue with supportive care. MMODL / IJN: [id number] /
[2019-05-09 20:22] LABS: Glucose,Whole Blood 135 mg/dL (75-99)
[2019-05-09] MEDS: CHOLECALCIFEROL 1,000 UNIT TAB PO SCH (20:37)
[2019-05-09] MEDS: MONTELUKAST 10 MG TAB PO SCH (20:37)
[2019-05-09] MEDS: DILTIAZEM CD 240 MG CAP.ER.24H PO SCH (20:37)
[2019-05-10] MEDS: IPRATROPIUM-ALBUTEROL 3 ML NEB INHALATION SCH ×7 (00:19→23:52)
[2019-05-10] MEDS: SODIUM CHLORIDE 0.9% 1,000 ML IV SCH ×2 (03:59→14:11)
[2019-05-10] MEDS: HYDROmorphone 0.5 MG/0.5 ML SYRINGE IVP PRN ×5 (04:20→20:54)
[2019-05-10] MEDS: methylPREDNISolone SOD SUCCI 125 MG/2 ML VIAL IV SCH ×3 (05:40→17:25)
[2019-05-10] MEDS: HYDROcodone/APAP 10-325MG 1 EACH TAB PO PRN ×3 (05:40→18:48)
[2019-05-10 06:57] LABS: Basophils % (A) 0 %; Eosinophils % (A) 0 %; HCT 36.4 % (34.0-46.0); HGB 11.8 gm/dL (11.4-16.0); Hypochromasia Moderate; Lymphocytes # (A) 0.6 k/uL (1.0-4.8); Lymphocytes % (A) 6 %; MCH 29.7 pg (25.0-35.0); MCHC 32.4 g/dL (31.0-37.0); MCV 91.5 fL (80.0-100.0); Mean Platelet Volume 6.6; Monocytes # (A) 0.4 k/uL (0-1.0); Monocytes % (A) 4 %; Neutrophils # (A) 8.8 k/uL (1.3-7.7); Neutrophils % (A) 88 %; Platelet Count 256 k/uL (150-450); RBC 3.98 m/uL (3.80-5.40); RDW 14.9 % (11.5-15.5)
[2019-05-10 07:11] LABS: Glucose,Whole Blood 149 mg/dL (75-99)
[2019-05-10 07:13] LABS: ALT 22 U/L (9-52); AST 16 U/L (14-36); African American GFR (CKD) >90 (>60 ml/min/1.73 sqM); Albumin 3.8 g/dL (3.5-5.0); Alkaline Phosphatase 83 U/L (38-126); Anion Gap 9 mmol/L; Blood Urea Nitrogen 14 mg/dL (7-17); Calcium 9.2 mg/dL (8.4-10.2); Carbon Dioxide 37 mmol/L (22-30); Chloride 95 mmol/L (98-107); Glucose 164 mg/dL (74-99); Sodium 141 mmol/L (137-145); Total Bilirubin 0.3 mg/dL (0.2-1.3); Total Protein 6.5 g/dL (6.3-8.2)
[2019-05-10] MEDS: BUDESONIDE 0.5 MG/2 ML NEBU INHALATION SCH ×2 (08:02→19:26)
[2019-05-10] MEDS: ENOXAPARIN 40 MG/0.4 ML SYRINGE SQ SCH (08:11)
[2019-05-10] MEDS: INSULIN ASPART (NovoLOG) 100 UNIT/ML VIAL SQ SCH ×4 (08:13→20:43)
[2019-05-10] MEDS: METHIMAZOLE 5 MG TAB PO SCH (08:13)
[2019-05-10] MEDS: PANTOPRAZOLE 40 MG TABLET PO SCH (08:13)
[2019-05-10] MEDS: ALPRAZolam 0.25 MG TAB PO PRN ×2 (08:18→19:52)
--- NOTE | 2019-05-10 10:24 | P.PN ---
Subjective Progress Note Date: 05/10/19 Principal diagnosis: Abdominal pain The patient continues to have abdominal pain. Complains of umbilical pain with lifting. No bowel movement yet Objective - Vital Signs Vital signs: Vital Signs Temp 98.4 F 05/10/19 07:19 Pulse 84 05/10/19 08:02 Resp 19 05/10/19 07:19 BP 152/78 05/10/19 07:19 Pulse Ox 97 05/10/19 07:19 Intake & Output 05/09/19 05/10/19 05/10/19 18:59 06:59 18:59 Intake Total 400 118 Balance 400 118 Intake: Oral 400 118 Other: Voiding Method Bedside Commode # Voids 1 2 - Constitutional General appearance: Present: cooperative, no acute distress - Gastrointestinal Gastrointestinal Comment(s): Softly distended, incarcerated umbilical hernia - Labs CBC & Chem 7: 05/10/19 06:18 05/10/19 06:18 Labs: Abnormal Lab Results - Last 24 Hours (Table) 05/09/19 05/09/19 05/09/19 Range/Units 11:36 16:38 20:20 Neutrophils # (1.3-7.7) k/uL Lymphocytes # (1.0-4.8) k/uL Chloride (98-107) mmol/L Carbon Dioxide (22-30) mmol/L Creatinine (0.52-1.04) mg/dL Glucose (74-99) mg/dL POC Glucose (mg/dL) 102 H 102 H 135 H (75-99) mg/dL 05/10/19 05/10/19 05/10/19 Range/Units 06:18 06:18 06:59 Neutrophils # 8.8 H (1.3-7.7) k/uL Lymphocytes # 0.6 L (1.0-4.8) k/uL Chloride 95 L (98-107) mmol/L Carbon Dioxide 37 H (22-30) mmol/L Creatinine 0.32 L (0.52-1.04) mg/dL Glucose 164 H (74-99) mg/dL POC Glucose (mg/dL) 149 H (75-99) mg/dL Microbiology - Last 24 Hours (Table) 05/07/19 19:36 Gram Stain - Final Sputum Sputum Culture - Final Haemophilus influenzae 05/07/19 13:20 Blood Culture - Preliminary Blood No Growth after 48 hours - Imaging and Cardiology CT scan - abdomen: report reviewed, image reviewed (Significant fecal burden) Assessment and Plan (1) Obstipation Current Visit: Yes Status: Acute Code(s): K59.00 - CONSTIPATION, UNSPECIFIED SNOMED Code(s): 135601148 (2) Abdominal pain Current Visit: No Status: Acute Code(s): R10.9 - UNSPECIFIED ABDOMINAL PAIN SNOMED Code(s): 13167456 (3) Umbilical hernia Current Visit: No Status: Acute Code(s): K42.9 - UMBILICAL HERNIA WITHOUT OBSTRUCTION OR GANGRENE SNOMED Code(s): 027023274 Plan: There is a small fat filled hernia. I think much of her discomfort comes from the significant obstipation. I will order something for this. She does report Dr. Elam did a colonoscopy on her several years ago. Currently Nonsurgical.
[2019-05-10] MEDS ORDERED: MAGNESIUM CITRATE 296 ML BOTTLE PO ONE (10:25)
[2019-05-10 10:58] LABS: Glucose,Whole Blood 107 mg/dL (75-99)
[2019-05-10] MEDS: DOCUSATE 100 MG CAP PO SCH (11:14)
[2019-05-10] MEDS: ONDANSETRON 4 MG/2 ML VIAL IVP PRN (11:41)
--- NOTE | 2019-05-10 14:47 | P.PN ---
Subjective Progress Note Date: 05/10/19 This is a 64-year-old female well-known to my services. Patient presented with complaints of increased shortness of breath. Patient has known advanced COPD and wears home O2 but states that her shortness of breath had been progressively increasing over the past few days with having low-grade temps. Patient reports that she is having increased sputum production and cough. Patient does have a known past medical history of coronary artery disease, cancer, heart failure, COPD, GERD, hypertension, liver disease, mitral valve prolapse, paroxysmal atrial fibrillation which she's not on anticoagulation due to previous GI bleed, C. diff, anxiety and depression. EKG completed showing normal sinus rhythm. Two-view chest x-ray has been ordered. Patient started on Solu-Medrol and breathing treatments. Patient reports improvement already with her shortness of breath. 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 Patient does have a elevated white blood cell count 20.5. Patient denies any recent steroids. D-dimer 0.22. At this time patient denies chest pain. Patient denies nausea vomiting or diarrhea. Patient denies any urinary burning or frequency On 05/08/2019 patient is alert and oriented 3. Patient started some shortness of breath with wheezing. Patient remains on Solu-Medrol and DuoNeb breathing treatments. Pulmonary services have been consulted. White blood cell improving to 14.7. At This time patient denies chest pain. Patient denies nausea vomiting or diarrhea. Patient denies any urinary burning or frequency On 05/09/2019 patient is alert and oriented 3. Patient reports improvement with her shortness of breath. White blood cell improving to 12.7. Patient remains on IV steroids for COPD exacerbation. Pulmonary services are following. At this time patient denies chest pain. Patient denies nausea vomiting or diarrhea. Patient denies any urinary burning or frequency. On 05/10/2019 patient was seen and examined on the medical floor, she is alert and oriented 3 in no apparent distress, she is still complaining of abdominal discomfort and complaining of shortness of breath with any activity, she is complaining of pain in her right foot, there is bluish discoloration in the right big toe, patient stated that she dropped her oxygen tank on her foot, otherwise there is no complaints there is no fever or chills no headache or dizziness no chest pain no nausea or vomiting no abdominal pain no diarrhea and no urinary symptoms Objective - Vital Signs Vital signs: Vital Signs Temp 98.4 F 05/10/19 07:19 Pulse 92 05/10/19 11:55 Resp 19 05/10/19 07:19 BP 152/78 05/10/19 07:19 Pulse Ox 97 05/10/19 07:19 Intake & Output 05/09/19 05/10/19 05/10/19 18:59 06:59 18:59 Intake Total 400 598 Balance 400 598 Intake: Oral 400 598 Other: Voiding Method Bedside Commode # Voids 1 2 - Exam In general patient is alert and oriented 3 in no apparent distress Head normocephalic and atraumatic Neck supple no JVD no goiter Lungs diminished bilaterally with expiratory wheezing Heart regular rate and rhythm S1-S2, no rub or gallop Abdomen is soft nontender nondistended positive bowel sounds no hepatosplenomegaly Extremities no edema no cyanosis or clubbing Neuro no gross focal neurological deficit - Labs CBC & Chem 7: 05/10/19 06:18 05/10/19 06:18 Labs: Abnormal Lab Results - Last 24 Hours (Table) 05/09/19 05/09/19 05/10/19 Range/Units 16:38 20:20 06:18 Neutrophils # 8.8 H (1.3-7.7) k/uL Lymphocytes # 0.6 L (1.0-4.8) k/uL Chloride (98-107) mmol/L Carbon Dioxide (22-30) mmol/L Creatinine (0.52-1.04) mg/dL Glucose (74-99) mg/dL POC Glucose (mg/dL) 102 H 135 H (75-99) mg/dL 05/10/19 05/10/19 05/10/19 Range/Units 06:18 06:59 10:56 Neutrophils # (1.3-7.7) k/uL Lymphocytes # (1.0-4.8) k/uL Chloride 95 L (98-107) mmol/L Carbon Dioxide 37 H (22-30) mmol/L Creatinine 0.32 L (0.52-1.04) mg/dL Glucose 164 H (74-99) mg/dL POC Glucose (mg/dL) 149 H 107 H (75-99) mg/dL Microbiology - Last 24 Hours (Table) 05/07/19 19:36 Gram Stain - Final Sputum Sputum Culture - Final Haemophilus influenzae 05/07/19 13:20 Blood Culture - Preliminary Blood No Growth after 48 hours Assessment and Plan Plan: 1. Increased shortness of breath related to his COPD exacerbation. Chest x-ray has been ordered sputum culture ordered pulmonary service is consulted. Patient started on Solu-Medrol and breathing treatments. Chest x-ray completed showing chronic changes without acute pulmonary process. Per pulmonary services continue Solu-Medrol hold off on antibiotics. 2. History of chronic hypoxic respiratory failure. Patient maintained on home O2 3. History of COPD 4. History of C. diff patient has been previously treated. Infectious disease is following 5. History of hyperthyroidism. Patient maintained on Tapazole 6. History of chronic back pain 7. History of liver lesions. Patient was evaluated by GI services to increase admission patient to follow-up outpatient with GI services 8. History of left ovarian lesion. Discussed with PCP patient to follow-up out patient with [facility] 9. History of paroxysmal atrial fibrillation. Not on anticoagulation due to h istory of GI bleed 10. Umbilicus hernia. Surgical services have been consulted 11. Back and neck pain. Thoracic and cervical x-rays ordered DVT prophylaxis Lovenox. GI prophylaxis Pepcid PT OT consult
--- NOTE | 2019-05-10 15:52 | PN ---
PROGRESS NOTE DATE OF SERVICE: 05/10/2019. REASON FOR FOLLOWUP: Leukocytosis. INTERVAL HISTORY: The patient is currently afebrile. The patient has been breathing comfortably. The patient denies having any chest pain or cough. No nausea. No vomiting. Some abdominal discomfort but no worsening. No diarrhea. The patient is constipated. PHYSICAL EXAMINATION: Blood pressure is 152/78 with a pulse of 78, temperature 98.4. She is 97% on 2 L nasal cannula. General description is a middle-aged female lying in bed in no distress. RESPIRATORY SYSTEM: Unlabored breathing with decreased intensity of breath sounds. No wheeze. HEART: S1, S2. Regular rate and rhythm. ABDOMEN: Soft. No tenderness. LABS/IMAGING: White count normalized to 10.0. CT of abdomen and pelvis with some evidence of constipation, but no evidence of colitis. DIAGNOSTIC IMPRESSION AND PLAN: Patient with leukocytosis, more likely reactive, in this patient admitted to hospital with possible asthma/chronic obstructive pulmonary disease exacerbation with tracheobronchitis. No evidence of any pneumonia. No need for any systemic antibiotic therapy. White count all but normalized. Continue with supportive care. MMODL / IJN: [id number] /
[2019-05-10 16:49] LABS: Glucose,Whole Blood 176 mg/dL (75-99)
--- NOTE | 2019-05-10 18:39 | XR ---
EXAMINATION TYPE: XR foot complete RT DATE OF EXAM: 05/10/2019 COMPARISON: 09/09/2015 HISTORY: Injury crush injury from oxygen tank TECHNIQUE: 2 view right foot FINDINGS: Structures are osteopenic. This may make occult fractures more difficult to visualize. Joint spaces are preserved. Alignment is normal. No suspicious acute fractures are identified. Soft t issues appear normal. IMPRESSION: 1. No acute osseous abnormality. Follow-up exams can be performed 7-10 days from acute trauma for co ntinued pain. 2. Osteopenia. Bone density could be performed for additional evaluation.
[2019-05-10 20:31] LABS: Glucose,Whole Blood 146 mg/dL (75-99)
[2019-05-10] MEDS: CHOLECALCIFEROL 1,000 UNIT TAB PO SCH (20:43)
[2019-05-10] MEDS: MONTELUKAST 10 MG TAB PO SCH (20:43)
[2019-05-10] MEDS: DILTIAZEM CD 240 MG CAP.ER.24H PO SCH (20:43)
[2019-05-11] MEDS: methylPREDNISolone SOD SUCCI 125 MG/2 ML VIAL IV SCH ×5 (00:06→23:04)
[2019-05-11] MEDS: HYDROcodone/APAP 10-325MG 1 EACH TAB PO PRN ×4 (00:07→22:24)
[2019-05-11] MEDS: SODIUM CHLORIDE 0.9% 1,000 ML IV SCH ×3 (00:11→21:05)
[2019-05-11] MEDS: HYDROmorphone 0.5 MG/0.5 ML SYRINGE IVP PRN ×5 (01:12→21:09)
[2019-05-11] MEDS: IPRATROPIUM-ALBUTEROL 3 ML NEB INHALATION SCH ×6 (03:43→23:21)
[2019-05-11 06:53] LABS: Basophils # (A) 0.1 k/uL (0-0.2); Basophils % (A) 1 %; Eosinophils % (A) 0 %; HCT 38.2 % (34.0-46.0); HGB 12.2 gm/dL (11.4-16.0); Hypochromasia Moderate; Lymphocytes # (A) 0.4 k/uL (1.0-4.8); Lymphocytes % (A) 5 %; MCH 29.4 pg (25.0-35.0); MCHC 32.1 g/dL (31.0-37.0); MCV 91.5 fL (80.0-100.0); Mean Platelet Volume 6.4; Monocytes # (A) 0.5 k/uL (0-1.0); Monocytes % (A) 6 %; Neutrophils # (A) 8.2 k/uL (1.3-7.7); Neutrophils % (A) 87 %; Platelet Count 269 k/uL (150-450); RBC 4.17 m/uL (3.80-5.40); RDW 14.7 % (11.5-15.5); WBC 9.4 k/uL (3.8-10.6)
[2019-05-11 06:59] LABS: ALT 22 U/L (9-52); AST 14 U/L (14-36); African American GFR (CKD) >90 (>60 ml/min/1.73 sqM); Albumin 3.7 g/dL (3.5-5.0); Alkaline Phosphatase 87 U/L (38-126); Blood Urea Nitrogen 17 mg/dL (7-17); Chloride 93 mmol/L (98-107); Glucose 169 mg/dL (74-99); Potassium 4.2 mmol/L (3.5-5.1); Sodium 139 mmol/L (137-145); Total Bilirubin 0.3 mg/dL (0.2-1.3); Total Protein 6.3 g/dL (6.3-8.2)
[2019-05-11 07:00] LABS: Glucose,Whole Blood 147 mg/dL (75-99)
[2019-05-11 07:07] LABS: Anion Gap 7 mmol/L
[2019-05-11] MEDS: BUDESONIDE 0.5 MG/2 ML NEBU INHALATION SCH ×2 (07:09→18:56)
[2019-05-11 07:11] LABS: Carbon Dioxide 39 mmol/L (22-30)
[2019-05-11] MEDS: ENOXAPARIN 40 MG/0.4 ML SYRINGE SQ SCH (07:35)
[2019-05-11] MEDS: PANTOPRAZOLE 40 MG TABLET PO SCH (07:36)
[2019-05-11] MEDS: INSULIN ASPART (NovoLOG) 100 UNIT/ML VIAL SQ SCH ×4 (07:36→21:09)
[2019-05-11] MEDS: DOCUSATE 100 MG CAP PO SCH (07:36)
[2019-05-11] MEDS: METHIMAZOLE 5 MG TAB PO SCH (07:37)
[2019-05-11] MEDS: ALPRAZolam 0.25 MG TAB PO PRN ×2 (09:00→23:07)
[2019-05-11 11:15] LABS: Glucose,Whole Blood 88 mg/dL (75-99)
--- NOTE | 2019-05-11 15:54 | P.PN ---
Subjective Progress Note Date: 05/11/19 This is a 64-year-old female well-known to my services. Patient presented with complaints of increased shortness of breath. Patient has known advanced COPD and wears home O2 but states that her shortness of breath had been progressively increasing over the past few days with having low-grade temps. Patient reports that she is having increased sputum production and cough. Patient does have a known past medical history of coronary artery disease, cancer, heart failure, COPD, GERD, hypertension, liver disease, mitral valve prolapse, paroxysmal atrial fibrillation which she's not on anticoagulation due to previous GI bleed, C. diff, anxiety and depression. EKG completed showing normal sinus rhythm. Two-view chest x-ray has been ordered. Patient started on Solu-Medrol and breathing treatments. Patient reports improvement already with her shortness of breath. 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 KERRIE Webster has been consulted sputum culture ordered. Patient does have a elevated white blood cell count 20.5. Patient denies any recent steroids. D-dimer 0.22. At this time patient denies chest pain. Patient denies nausea vomiting or diarrhea. Patient denies any urinary burning or frequency On 05/08/2019 patient is alert and oriented 3. Patient started some shortness of breath with wheezing. Patient remains on Solu-Medrol and DuoNeb breathing treatments. Pulmonary services have been consulted. White blood cell improving to 14.7. At This time patient denies chest pain. Patient denies nausea vomiting or diarrhea. Patient denies any urinary burning or frequency On 05/09/2019 patient is alert and oriented 3. Patient reports improvement with her shortness of breath. White blood cell improving to 12.7. Patient remains on IV steroids for COPD exacerbation. Pulmonary services are following. At this time patient denies chest pain. Patient denies nausea vomiting or diarrhea. Patient denies any urinary burning or frequency. On 05/10/2019 patient was seen and examined on the medical floor, she is alert and oriented 3 in no apparent distress, she is still complaining of abdominal discomfort and complaining of shortness of breath with any activity, she is complaining of pain in her right foot, there is bluish discoloration in the right big toe, patient stated that she dropped her oxygen tank on her foot, otherwise there is no complaints there is no fever or chills no headache or dizziness no chest pain no nausea or vomiting no abdominal pain no diarrhea and no urinary symptoms On 05/11/2019 patient was seen and examined on the medical floor she is alert and oriented 3 in no apparent distress she is still complaining of cough and shortness of breath otherwise she denies any complaints there is no fever or chills no headache or dizziness no chest pain no nausea or vomiting no abdominal pain no diarrhea and no urinary symptoms Objective - Vital Signs Vital signs: Vital Signs Temp 98.1 F 05/11/19 13:58 Pulse 88 05/11/19 15:10 Resp 18 05/11/19 15:10 BP 153/74 05/11/19 13:58 Pulse Ox 96 05/11/19 14:57 Intake & Output 05/10/19 05/11/19 05/11/19 18:59 06:59 18:59 Intake Total 598 900 420 Balance 598 900 420 Intake: Oral 598 900 420 Other: Voiding Method Bedside Commode # Voids 1 3 - Exam In general patient is alert and oriented 3 in no apparent distress Head normocephalic and atraumatic Neck supple no JVD no goiter Lungs diminished bilaterally with expiratory wheezing Heart regular rate and rhythm S1-S2, no rub or gallop Abdomen is soft nontender nondistended positive bowel sounds no hepatosplenomegaly Extremities no edema no cyanosis or clubbing Neuro no gross focal neurological deficit - Labs CBC & Chem 7: 05/11/19 05:47 05/11/19 05:47 Labs: Abnormal Lab Results - Last 24 Hours (Table) 05/10/19 05/10/19 05/11/19 Range/Units 16:38 20:29 05:47 Neutrophils # 8.2 H (1.3-7.7) k/uL Lymphocytes # 0.4 L (1.0-4.8) k/uL Chloride (98-107) mmol/L Carbon Dioxide (22-30) mmol/L Creatinine (0.52-1.04) mg/dL Glucose (74-99) mg/dL POC Glucose (mg/dL) 176 H 146 H (75-99) mg/dL 05/11/19 05/11/19 Range/Units 05:47 06:58 Neutrophils # (1.3-7.7) k/uL Lymphocytes # (1.0-4.8) k/uL Chloride 93 L (98-107) mmol/L Carbon Dioxide 39 H (22-30) mmol/L Creatinine 0.38 L (0.52-1.04) mg/dL Glucose 169 H (74-99) mg/dL POC Glucose (mg/dL) 147 H (75-99) mg/dL Microbiology - Last 24 Hours (Table) 05/07/19 13:20 Blood Culture - Preliminary Blood No Growth after 96 hours Assessment and Plan Plan: 1. Increased shortness of breath related to his COPD exacerbation. Chest x-ray has been ordered sputum culture ordered pulmonary service is consulted. Patient started on Solu-Medrol and breathing treatments. Chest x-ray completed showing chronic changes without acute pulmonary process. Per pulmonary services continue Solu-Medrol hold off on antibiotics. 2. History of chronic hypoxic respiratory failure. Patient maintained on home O2 3. History of COPD 4. History of C. diff patient has been previously treated. Infectious disease is following 5. History of hyperthyroidism. Patient maintained on Tapazole 6. History of chronic back pain 7. History of liver lesions. Patient was evaluated by GI services to increase admission patient to follow-up outpatient with GI services 8. History of left ovarian lesion. Discussed with PCP patient to follow-up outpatient with PHARMAC[facility]ICAL SPECIALIST 9. History of paroxysmal atrial fibrillation. Not on anticoagulation due to history of GI bleed 10. Umbilicus hernia. Surgical services have been consulted 11. Back and neck pain. Thoracic and cervical x-rays ordered DVT prophylaxis Lovenox. GI prophylaxis Pepcid PT OT consult
[2019-05-11 17:09] LABS: Glucose,Whole Blood 121 mg/dL (75-99)
[2019-05-11] MEDS: CHOLECALCIFEROL 1,000 UNIT TAB PO SCH (21:08)
[2019-05-11] MEDS: MONTELUKAST 10 MG TAB PO SCH (21:08)
[2019-05-11] MEDS: DILTIAZEM CD 240 MG CAP.ER.24H PO SCH (21:09)
[2019-05-11 21:15] LABS: Glucose,Whole Blood 142 mg/dL (75-99)
[2019-05-12] MEDS: IPRATROPIUM-ALBUTEROL 3 ML NEB INHALATION SCH ×6 (03:00→23:31)
[2019-05-12] MEDS: HYDROmorphone 0.5 MG/0.5 ML SYRINGE IVP PRN ×6 (03:16→22:39)
[2019-05-12] MEDS: SODIUM CHLORIDE 0.9% 1,000 ML IV SCH ×2 (04:27→16:01)
[2019-05-12] MEDS: methylPREDNISolone SOD SUCCI 125 MG/2 ML VIAL IV SCH ×4 (06:06→23:53)
[2019-05-12] MEDS: HYDROcodone/APAP 10-325MG 1 EACH TAB PO PRN ×4 (06:06→23:53)
[2019-05-12] MEDS: ONDANSETRON 4 MG/2 ML VIAL IVP PRN ×3 (06:07→22:42)
[2019-05-12 06:56] LABS: Glucose,Whole Blood 132 mg/dL (75-99)
[2019-05-12] MEDS: INSULIN ASPART (NovoLOG) 100 UNIT/ML VIAL SQ SCH ×4 (07:18→22:40)
[2019-05-12] MEDS: BUDESONIDE 0.5 MG/2 ML NEBU INHALATION SCH ×2 (07:22→19:22)
[2019-05-12] MEDS: DOCUSATE 100 MG CAP PO SCH (07:22)
[2019-05-12] MEDS: METHIMAZOLE 5 MG TAB PO SCH (07:22)
[2019-05-12] MEDS: ALPRAZolam 0.25 MG TAB PO PRN ×2 (07:22→21:17)
[2019-05-12] MEDS: PANTOPRAZOLE 40 MG TABLET PO SCH (07:22)
--- NOTE | 2019-05-12 07:40 | PN ---
PROGRESS NOTE DATE OF SERVICE: 05/11/2019 REASON FOR FOLLOW UP: Leukocytosis. INTERVAL HISTORY: The patient is currently afebrile. The patient has been breathing slightly comfortably. She is still complaining of cough, pain, and wheezing. No sputum production, no nausea, no vomiting. No abdominal pain, no diarrhea. PHYSICAL EXAMINATION: Blood pressure is 167/86, pulse of 98, temperature 97.8, she is 93% on room air. General description is a middle-aged female, lying in bed in no distress. RESPIRATORY SYSTEM: Unlabored breathing, decreased intensity of breath sounds, no wheeze. HEART: S1, S2. Regular rate and rhythm. ABDOMEN: Soft, no tenderness. LABS: Hemoglobin is 12.1, white count of 9.4, BUN of 17, creatinine 0.38. DIAGNOSTIC IMPRESSION AND PLAN: 1. Patient with leukocytosis, likely reactive in this patient in the hospital. Asthma/chronic obstructive pulmonary disease exacerbation with white count normalized without antibiotic therapy. Recommend no antibiotics. Continue steroids and bronchodilators per Pulmonary. 2. History of Clostridium difficile, currently with no loose stool. She is encouraged to increase her probiotic and yogurt. MMODL / IJN: [id number] /
[2019-05-12] MEDS: ENOXAPARIN 40 MG/0.4 ML SYRINGE SQ SCH (09:00)
--- NOTE | 2019-05-12 10:31 | P.PN ---
Subjective Progress Note Date: 05/12/19 This is a 64-year-old female well-known to my services. Patient presented with complaints of increased shortness of breath. Patient has known advanced COPD and wears home O2 but states that her shortness of breath had been progressively increasing over the past few days with having low-grade temps. Patient reports that she is having increased sputum production and cough. Patient does have a known past medical history of coronary artery disease, cancer, heart failure, COPD, GERD, hypertension, liver disease, mitral valve prolapse, paroxysmal atrial fibrillation which she's not on anticoagulation due to previous GI bleed, C. diff, anxiety and depression. EKG completed showing normal sinus rhythm. Two-view chest x-ray has been ordered. Patient started on Solu-Medrol and breathing treatments. Patient reports improvement already with her shortness of breath. Patient's automation operator Dr. KERRIE Webster has been consulted sputum culture ordered. Patient does have a elevated white blood cell count 20.5. Patient denies any recent steroids. D-dimer 0.22. At this time patient denies chest pain. Patient denies nausea vomiting or diarrhea. Patient denies any urinary burning or frequency On 05/08/2019 patient is alert and oriented 3. Patient started some shortness of breath with wheezing. Patient remains on Solu-Medrol and DuoNeb breathing treatments. Pulmonary services have been consulted. White blood cell improving to 14.7. At This time patient denies chest pain. Patient denies nausea vomiting or diarrhea. Patient denies any urinary burning or frequency On 05/09/2019 patient is alert and oriented 3. Patient reports improvement with her shortness of breath. White blood cell improving to 12.7. Patient remains on IV steroids for COPD exacerbation. Pulmonary services are following. At this time patient denies chest pain. Patient denies nausea vomiting or diarrhea. Patient denies any urinary burning or frequency On 05/10/2019 patient was seen and examined on the medical floor, she is alert and oriented 3 in no apparent distress, she is still complaining of abdominal discomfort and complaining of shortness of breath with any activity, she is complaining of pain in her right foot, there is bluish discoloration in the right big toe, patient stated that she dropped her oxygen tank on her foot, otherwise there is no complaints there is no fever or chills no headache or dizziness no chest pain no nausea or vomiting no abdominal pain no diarrhea and no urinary symptoms On 05/11/2019 patient was seen and examined on the medical floor she is alert and oriented 3 in no apparent distress she is still complaining of cough and shortness of breath otherwise she denies any complaints there is no fever or chills no headache or dizziness no chest pain no nausea or vomiting no abdominal pain no diarrhea and no urinary symptoms On 05/12/2019 patient's alert and oriented 3. Patient still complaining of cough and shortness breath. Pulmonary and infectious disease are following. Patient denies chest pain. Patient denies nausea vomiting or diarrhea. Patient denies any urinary burning or frequency Objective - Vital Signs Vital signs: Vital Signs Temp 98.5 F 05/12/19 07:00 Pulse 102 H 05/12/19 07:45 Resp 16 05/12/19 07:00 BP 141/74 05/12/19 07:00 Pulse Ox 93 L 05/12/19 07:00 Intake & Output 05/11/19 05/12/19 05/12/19 18:59 06:59 18:59 Intake Total 600 200 Balance 600 200 Intake: Oral 600 200 Other: Voiding Method Bedside Commode # Voids 3 2 - Exam Head normocephalic Neck supple Lungs diminished bilaterally with expiratory wheezing Heart regular rate and rhythm S1-S2, no rub or gallop Abdomen is soft nontender nondistended positive bowel sounds no hepatosplenomegaly Extremities no edema Neuro alert and orientated to 3 - Labs CBC & Chem 7: 05/11/19 05:47 05/11/19 05:47 Labs: Abnormal Lab Results - Last 24 Hours (Table) 05/11/19 05/11/19 05/12/19 Range/Units 16:57 21:03 06:53 POC Glucose (mg/dL) 121 H 142 H 132 H (75-99) mg/dL Microbiology - Last 24 Hours (Table) 05/07/19 13:20 Blood Culture - Preliminary Blood No Growth after 96 hours Assessment and Plan Assessment: 1. Increased shortness of breath related to his COPD exacerbation. Chest x-ray has been ordered sputum culture ordered pulmonary service is consulted. Patient started on Solu-Medrol and breathing treatments. Chest x-ray completed showing chronic changes without acute pulmonary process. Per pulmonary services continue Solu-Medrol hold off on antibiotics. 2. History of chronic hypoxic respiratory failure. Patient maintained on home O2 3. History of COPD 4. History of C. diff patient has been previously treated. Infectious disease is following 5. History of hyperthyroidism. Patient maintained on Tapazole 6. History of chronic back pain 7. History of liver lesions. Patient was evaluated by GI services to increase admission patient to follow-up outpatient with GI services 8. History of left ovarian lesion. Discussed with PCP patient to follow-up outpatient with RN BSN 9. History of paroxysmal atrial fibrillation. Not on anticoagulation due to history of GI bleed 10. Umbilicus hernia. Patient being followed by surgical services 11. Back and neck pain. Thoracic spine x-ray completed showing scoliosis. Cervical spine x-ray completed showing mild degenerative changes with foraminal narrowing discussed 12. Foot pain. X-ray for completed showing no acute osseous abnormality follow up exams can be performed at 7 days from acute trauma for continued pain osteopenia bone density could be performed for additional evaluation 13. Constipation. Colace added DVT prophylaxis Lovenox. GI prophylaxis Pepcid PT OT consult I performed an examination of the patient and discussed their management with the Nurse Practitioner. I have reviewed the Nurse Practitioner's notes and agree with the documented findings and plan of care
[2019-05-12 11:36] LABS: Glucose,Whole Blood 109 mg/dL (75-99)
--- NOTE | 2019-05-12 14:42 | P.PN ---
Subjective Progress Note Date: 05/12/19 Principal diagnosis: 1. Increased shortness of breath related to his COPD exacerbation. 2. History of chronic hypoxic respiratory failure. 3. History of COPD 4. History of C. diff patient has been previously treated. 5. History of hyperthyroidism on Tapazole 6. History of chronic back pain 7. History of liver lesions. 8. History of left ovarian lesion. 9. History of paroxysmal atrial fibrillation. 10. Umbilicus hernia. 11. Back and neck pain. T 12. Foot pain. 13. Constipation. 05/12/2019, patient seen eval reexamined is still complaining of shortness of breath cough is bettersputum production is present she is getting breathing treatment seems to be helping, labs reviewed medications reviewed, last chest x- ray performed 5 days ago overall COPD-like changes stable, labs from yesterday CBC is normal however CO2 and chemistry was elevated chronically likely related to COPD and his stage Objective - Vital Signs Vital signs: Vital Signs Temp 98.5 F 05/12/19 07:00 Pulse 96 05/12/19 10:58 Resp 16 05/12/19 08:00 BP 141/74 05/12/19 07:00 Pulse Ox 93 L 05/12/19 07:00 Intake & Output 05/11/19 05/12/19 05/12/19 18:59 06:59 18:59 Intake Total 600 200 Balance 600 200 Intake: Oral 600 200 Other: Voiding Method Bedside Commode # Voids 3 2 3 - Constitutional General appearance: Present: average body habitus, cooperative, disheveled - EENT Eyes: Present: anicteric sclerae, EOMI, PERRLA, poor dentition, normal appearance ENT: Present: normal oropharynx Ears: bilateral: normal - Neck Carotids: bilateral: upstroke normal Thyroid: bilateral: normal size - Respiratory Respiratory: bilateral: diminished, wheezing, negative: CTA, dullness, rales, rhonchi, prolonged expiration, prolonged inspiration, other - Cardiovascular Rhythm: regular Heart sounds: normal: S1, S2 - Gastrointestinal General gastrointestinal: Present: normal bowel sounds, soft - Neurologic Neurologic: Present: CNII-XII intact - Musculoskeletal Musculoskeletal: Present: gait normal, generalized weakness, strength equal b ilaterally - Psychiatric Psychiatric: Present: A&O x's 3, appropriate affect, intact judgment & insight - Labs CBC & Chem 7: 05/11/19 05:47 05/11/19 05:47 Labs: Abnormal Lab Results - Last 24 Hours (Table) 05/11/19 05/11/19 05/12/19 Range/Units 16:57 21:03 06:53 POC Glucose (mg/dL) 121 H 142 H 132 H (75-99) mg/dL 05/12/19 Range/Units 11:33 POC Glucose (mg/dL) 109 H (75-99) mg/dL Microbiology - Last 24 Hours (Table) 05/07/19 13:20 Blood Culture - Preliminary Blood No Growth after 96 hours - Imaging and Cardiology Chest x-ray: report reviewed, image reviewed Assessment and Plan Assessment: Acute COPD extubation Chronic hypoxic respiratory failure hypoxic and hypercapnic 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 difficile colitis History of hyperthyroidism Liver lesion patient to follow-up with GI services on outpatient Plan: Continue breathing treatments Deep breathing exercises incentive spirometry DVT prophylaxis Continue IV steroids and start tapering it down Continued DVT prophylaxis IV fluids can be tapered down as well Further recommendations pending plan of care as per clinical response of the patient
[2019-05-12 16:58] LABS: Glucose,Whole Blood 159 mg/dL (75-99)
[2019-05-12 20:13] LABS: Glucose,Whole Blood 118 mg/dL (75-99)
[2019-05-12] MEDS: CHOLECALCIFEROL 1,000 UNIT TAB PO SCH (20:15)
[2019-05-12] MEDS: DILTIAZEM CD 240 MG CAP.ER.24H PO SCH (20:15)
[2019-05-12] MEDS: MONTELUKAST 10 MG TAB PO SCH (22:40)
--- NOTE | 2019-05-12 23:28 | PN ---
PROGRESS NOTE DATE OF SERVICE: 05/12/2019. REASON FOR FOLLOWUP: Leukocytosis and tracheobronchitis. INTERVAL HISTORY: The patient is currently afebrile. She is still complaining of shortness of breath and wheezing and continues to have a cough but no worsening reported. No nausea, no vomiting. No abdominal pain or diarrhea. PHYSICAL EXAMINATION: Her blood pressure is 162/75 with a pulse of 89, temperature 98.1. She is 94% on 2 L nasal cannula. General description is a middle-aged female up in the bed in no distress. RESPIRATORY SYSTEM: Unlabored breathing with decreased intensity of breath sounds. No wheeze. HEART: S1, S2. Regular rate and rhythm. ABDOMEN: Soft. No tenderness. LABS: No new labs have been obtained today. DIAGNOSTIC IMPRESSION AND PLAN: Patient with leukocytosis. No evidence of underlying pneumonia. The patient has been managed by steroids and bronchodilators; to continue. No need for any systemic antibiotic therapy. White count has normalized. ID will sign off. Please call back if any question or concern regarding infectious disease care. MMODL / IJN: [id number] /
[2019-05-13] MEDS: SODIUM CHLORIDE 0.9% 1,000 ML IV SCH (00:54)
[2019-05-13] MEDS: IPRATROPIUM-ALBUTEROL 3 ML NEB INHALATION SCH ×5 (04:01→20:12)
[2019-05-13] MEDS: methylPREDNISolone SOD SUCCI 125 MG/2 ML VIAL IV SCH ×4 (04:17→22:47)
[2019-05-13] MEDS: HYDROmorphone 0.5 MG/0.5 ML SYRINGE IVP PRN ×7 (04:17→23:33)
[2019-05-13] MEDS: HYDROcodone/APAP 10-325MG 1 EACH TAB PO PRN ×3 (05:32→18:59)
[2019-05-13] MEDS: ALPRAZolam 0.25 MG TAB PO PRN ×2 (05:34→22:47)
[2019-05-13 06:25] LABS: Basophils # (A) 0.2 k/uL (0-0.2); Basophils % (A) 2 %; Eosinophils % (A) 0 %; HCT 40.9 % (34.0-46.0); HGB 12.8 gm/dL (11.4-16.0); Hypochromasia Moderate; Lymphocytes # (A) 0.3 k/uL (1.0-4.8); Lymphocytes % (A) 2 %; MCH 28.8 pg (25.0-35.0); MCHC 31.2 g/dL (31.0-37.0); MCV 92.3 fL (80.0-100.0); Mean Platelet Volume 6.3; Monocytes # (A) 0.4 k/uL (0-1.0); Monocytes % (A) 3 %; Neutrophils % (A) 91 %; Platelet Count 313 k/uL (150-450); RBC 4.43 m/uL (3.80-5.40); RDW 14.7 % (11.5-15.5)
[2019-05-13 06:34] LABS: ALT 28 U/L (9-52); AST 19 U/L (14-36); African American GFR (CKD) >90 (>60 ml/min/1.73 sqM); Albumin 3.9 g/dL (3.5-5.0); Alkaline Phosphatase 81 U/L (38-126); Blood Urea Nitrogen 17 mg/dL (7-17); Chloride 92 mmol/L (98-107); Glucose 156 mg/dL (74-99); Sodium 139 mmol/L (137-145); Total Bilirubin 0.3 mg/dL (0.2-1.3); Total Protein 6.5 g/dL (6.3-8.2)
[2019-05-13 06:40] LABS: Anion Gap 9 mmol/L
[2019-05-13 06:47] LABS: Carbon Dioxide 38 mmol/L (22-30)
[2019-05-13 06:48] LABS: Glucose,Whole Blood 129 mg/dL (75-99)
[2019-05-13] MEDS: INSULIN ASPART (NovoLOG) 100 UNIT/ML VIAL SQ SCH ×4 (06:57→21:04)
[2019-05-13] MEDS: PANTOPRAZOLE 40 MG TABLET PO SCH (07:24)
[2019-05-13] MEDS: METHIMAZOLE 5 MG TAB PO SCH (07:24)
[2019-05-13] MEDS: DOCUSATE 100 MG CAP PO SCH (07:24)
[2019-05-13] MEDS: ENOXAPARIN 40 MG/0.4 ML SYRINGE SQ SCH (07:24)
[2019-05-13] MEDS: BUDESONIDE 0.5 MG/2 ML NEBU INHALATION SCH (07:50)
--- NOTE | 2019-05-13 10:10 | P.PN ---
Subjective Progress Note Date: 05/13/19 This is a 64-year-old female well-known to my services. Patient presented with complaints of increased shortness of breath. Patient has known advanced COPD and wears home O2 but states that her shortness of breath had been progressively increasing over the past few days with having low-grade temps. Patient reports that she is having increased sputum production and cough. Patient does have a known past medical history of coronary artery disease, cancer, heart failure, COPD, GERD, hypertension, liver disease, mitral valve prolapse, paroxysmal atrial fibrillation which she's not on anticoagulation due to previous GI bleed, C. diff, anxiety and depression. EKG completed showing normal sinus rhythm. Two-view chest x-ray has been ordered. Patient started on Solu-Medrol and breathing treatments. Patient reports improvement already with her shortness of breath. Patient's res counselor Dr. KERRIE Webster has been consulted sputum culture ordered. Patient does have a elevated white blood cell count 20.5. Patient denies any recent steroids. D-dimer 0.22. At this time patient denies chest pain. Patient denies nausea vomiting or diarrhea. Patient denies any urinary burning or frequency On 05/08/2019 patient is alert and oriented 3. Patient started some shortness of breath with wheezing. Patient remains on Solu-Medrol and DuoNeb breathing treatments. Pulmonary services have been consulted. White blood cell improving to 14.7. At This time patient denies chest pain. Patient denies nausea vomiting or diarrhea. Patient denies any urinary burning or frequency On 05/09/2019 patient is alert and oriented 3. Patient reports improvement with her shortness of breath. White blood cell improving to 12.7. Patient remains on IV steroids for COPD exacerbation. Pulmonary services are following. At this time patient denies chest pain. Patient denies nausea vomiting or diarrhea. Patient denies any urinary burning or frequency On 05/10/2019 patient was seen and examined on the medical floor, she is alert and oriented 3 in no apparent distress, she is still complaining of abdominal discomfort and complaining of shortness of breath with any activity, she is complaining of pain in her right foot, there is bluish discoloration in the right big toe, patient stated that she dropped her oxygen tank on her foot, otherwise there is no complaints there is no fever or chills no headache or dizziness no chest pain no nausea or vomiting no abdominal pain no diarrhea and no urinary symptoms On 05/11/2019 patient was seen and examined on the medical floor she is alert and oriented 3 in no apparent distress she is still complaining of cough and shortness of breath otherwise she denies any complaints there is no fever or chills no headache or dizziness no chest pain no nausea or vomiting no abdominal pain no diarrhea and no urinary symptoms On 05/12/2019 patient's alert and oriented 3. Patient still complaining of cough and shortness breath. Pulmonary and infectious disease are following. Patient denies chest pain. Patient denies nausea vomiting or diarrhea. Patient denies any urinary burning or frequency On 05/13/2019 patient is alert and oriented 3. Patient still having increased wheezing and shortness of breath with ambulation. Sputum culture growing haemophilus influenza. Discussed case with Dr. Valdez per infectious disease per infectious disease likely colonizer no need for antibiotics at this time chest x-ray will be repeated. Patient denies chest pain. Patient denies nausea vomiting or diarrhea. Patient did have normal bowel movement this a.m. Objective - Vital Signs Vital signs: Vital Signs Temp 97.6 F 05/13/19 07:00 Pulse 82 05/13/19 08:05 Resp 22 05/13/19 07:50 BP 169/78 05/13/19 07:00 Pulse Ox 96 05/13/19 07:50 Intake & Output 05/12/19 05/13/19 05/13/19 18:59 06:59 18:59 Intake Total 118 200 Balance 118 200 Intake: Oral 118 200 Other: Voiding Method Toilet # Voids 3 - Exam Head normocephalic Neck supple Lungs diminished bilaterally with expiratory wheezing Heart regular rate and rhythm S1-S2, no rub or gallop Abdomen is soft nontender nondistended positive bowel sounds no hepatosplenomegaly Extremities no edema Neuro alert and orientated to 3 - Labs CBC & Chem 7: 05/13/19 05:57 05/13/19 05:57 Labs: Abnormal Lab Results - Last 24 Hours (Table) 05/12/19 05/12/19 05/12/19 Range/Units 11:33 16:56 20:02 WBC (3.8-10.6) k/uL Neutrophils # (1.3-7.7) k/uL Lymphocytes # (1.0-4.8) k/uL Chloride (98-107) mmol/L Carbon Dioxide (22-30) mmol/L Creatinine (0.52-1.04) mg/dL Glucose (74-99) mg/dL POC Glucose (mg/dL) 109 H 159 H 118 H (75-99) mg/dL 05/13/19 05/13/19 05/13/19 Range/Units 05:57 05:57 06:44 WBC 11.0 H (3.8-10.6) k/uL Neutrophils # 10.0 H (1.3-7.7) k/uL Lymphocytes # 0.3 L (1.0-4.8) k/uL Chloride 92 L (98-107) mmol/L Carbon Dioxide 38 H (22-30) mmol/L Creatinine 0.33 L (0.52-1.04) mg/dL Glucose 156 H (74-99) mg/dL POC Glucose (mg/dL) 129 H (75-99) mg/dL Microbiology - Last 24 Hours (Table) 05/07/19 13:20 Blood Culture - Preliminary Blood No Growth after 120 hours Assessment and Plan Assessment: 1. Increased shortness of breath related to his COPD exacerbation. Chest x-ray has been ordered sputum culture ordered pulmonary service is consulted. Patient started on Solu-Medrol and breathing treatments. Chest x-ray completed showing chronic changes without acute pulmonary process. Per pulmonary services continue Solu-Medrol hold off on antibiotics. Sputum culture growing haemophilus influenzae. Discussed case with Dr. Valdez per infectious disease this is likely a colonizer chest x-ray has been repeated no need for antibiotics at this time 2. History of chronic hypoxic respiratory failure. Patient maintained on home O2 3. History of COPD 4. History of C. diff patient has been previously treated. Infectious disease is following 5. History of hyperthyroidism. Patient maintained on Tapazole 6. History of chronic back pain 7. History of liver lesions. Patient was evaluated by GI services to increase admission patient to follow-up outpatient with GI services 8. History of left ovarian lesion. Discussed with PCP patient to follow-up outpatient with [facility] 9. History of paroxysmal atrial fibrillation. Not on anticoagulation due to history of GI bleed 10. Umbilicus hernia. Patient being followed by surgical services 11. Back and neck pain. Thoracic spine x-ray completed showing scoliosis. Cervical spine x-ray completed showing mild degenerative changes with foraminal narrowing discussed 12. Foot pain. X-ray for completed showing no acute osseous abnormality follow up exams can be performed at 7 days from acute trauma for continued pain osteopenia bone density could be performed for additional evaluation 13. Constipation. Colace added. Resolved DVT prophylaxis Lovenox. GI prophylaxis Pepcid PT OT consult I performed an examination of the patient and discussed their management with the Nurse Practitioner. I have reviewed the Nurse Practitioner's notes and agree with the documented findings and plan of care
[2019-05-13 11:32] LABS: Glucose,Whole Blood 120 mg/dL (75-99)
[2019-05-13 16:48] LABS: Glucose,Whole Blood 196 mg/dL (75-99)
--- NOTE | 2019-05-13 18:01 | XR ---
EXAMINATION: XR chest 2V DATE AND TIME: 05/13/2019 5:51 PM CLINICAL INDICATION: PHH; copd rule out pneumonia, increased SOB TECHNIQUE: Departmental protocol COMPARISON: 05/07/2019 FINDINGS: The lungs are hyperinflated, similar to the prior study where there are no focal added pulm onary opacities. However, a subtle fine reticular pattern of increased density overlies the pulmonary vasculature bilaterally, which can correlate with a clinical diagnosis of subtle interstitial phase pulmonary edema. The pleural spaces are negative. The cardiac silhouette is not enlarged, and the remainder of the mediastinal silhouette is unremarkab le. The skeletal structures and soft tissues are negative for acute findings. IMPRESSION: 1. Diffuse hyperinflation redemonstrated. 2. Bilateral subtle interstitial pattern suggested.
--- NOTE | 2019-05-13 19:29 | P.PN ---
Subjective Progress Note Date: 05/13/19 Principal diagnosis: 1. Increased shortness of breath related to his COPD exacerbation. 2. History of chronic hypoxic respiratory failure. 3. History of COPD 4. History of C. diff patient has been previously treated. 5. History of hyperthyroidism on Tapazole 6. History of chronic back pain 7. History of liver lesions. 8. History of left ovarian lesion. 9. History of paroxysmal atrial fibrillation. 10. Umbilicus hernia. 11. Back and neck pain. T 12. Foot pain. 13. Constipation. 05/13/2019, patient seen [place] examined still having shortness of breath however she is feeling more chest tightness she feels that Pulmicort is not helping and would like to be discontinued, she has a little bit more swelling the lower extremity and retaining water O put her on Lasix as she used to take before we'll start with 20 mg daily and monitor her closely 05/12/2019, patient seen walter reexamined is still complaining of shortness of breath cough is bettersputum production is present she is getting breathing treatment seems to be helping, labs reviewed medications reviewed, last chest x- ray performed 5 days ago overall COPD-like changes stable, labs from yesterday CBC is normal however CO2 and chemistry was elevated chronically likely related to COPD and his stage Objective - Vital Signs Vital signs: Vital Signs Temp 98.2 F 05/13/19 19:17 Pulse 97 05/13/19 19:17 Resp 18 05/13/19 19:17 BP 164/91 05/13/19 19:17 Pulse Ox 93 L 05/13/19 19:17 Intake & Output 05/13/19 05/13/19 05/14/19 06:59 18:59 06:59 Intake Total 118 200 Balance 118 200 Weight 50.349 kg Intake: Oral 118 200 Other: Voiding Method Toilet Toilet # Voids 3 - Exam - Constitutional General appearance: Present: average body habitus, cooperative, disheveled - EENT Eyes: Present: anicteric sclerae, EOMI, PERRLA, poor dentition, normal a ppearance ENT: Present: normal oropharynx Ears: bilateral: normal - Neck Carotids: bilateral: upstroke normal Thyroid: bilateral: normal size - Respiratory Respiratory: bilateral: diminished, wheezing, negative: CTA, dullness, rales, rhonchi, prolonged expiration, prolonged inspiration, other - Cardiovascular Rhythm: regular Heart sounds: normal: S1, S2 - Gastrointestinal General gastrointestinal: Present: normal bowel sounds, soft - Neurologic Neurologic: Present: CNII-XII intact - Musculoskeletal Musculoskeletal: Present: gait normal, generalized weakness, strength equal bilaterally - Psychiatric Psychiatric: Present: A&O x's 3, appropriate affect, intact judgment & insight - Labs CBC & Chem 7: 05/13/19 05:57 05/13/19 05:57 Labs: Abnormal Lab Results - Last 24 Hours (Table) 05/12/19 05/13/19 05/13/19 Range/Units 20:02 05:57 05:57 WBC 11.0 H (3.8-10.6) k/uL Neutrophils # 10.0 H (1.3-7.7) k/uL Lymphocytes # 0.3 L (1.0-4.8) k/uL Chloride 92 L (98-107) mmol/L Carbon Dioxide 38 H (22-30) mmol/L Creatinine 0.33 L (0.52-1.04) mg/dL Glucose 156 H (74-99) mg/dL POC Glucose (mg/dL) 118 H (75-99) mg/dL 05/13/19 05/13/19 05/13/19 Range/Units 06:44 11:31 16:46 WBC (3.8-10.6) k/uL Neutrophils # (1.3-7.7) k/uL Lymphocytes # (1.0-4.8) k/uL Chloride (98-107) mmol/L Carbon Dioxide (22-30) mmol/L Creatinine (0.52-1.04) mg/dL Glucose (74-99) mg/dL POC Glucose (mg/dL) 129 H 120 H 196 H (75-99) mg/dL Microbiology - Last 24 Hours (Table) 05/07/19 13:20 Blood Culture - Final Blood No Growth after 144 hours Assessment and Plan Assessment: Acute COPD extubation Chronic hypoxic respiratory failure hypoxic and hypercapnic 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 difficile colitis History of hyperthyroidism Liver lesion patient to follow-up with GI services on outpatient Fluid retention Plan: Continue breathing treatments Deep breathing exercises incentive spirometry DVT prophylaxis Continue IV steroids and start tapering it down Continued DVT prophylaxis IV fluids can be tapered down as well Low-dose Lasix DC Pulmicort Further recommendations pending plan of care as per clinical response of the patient Time with Patient: Greater than 30
[2019-05-13 20:18] LABS: Glucose,Whole Blood 139 mg/dL (75-99)
[2019-05-13] MEDS: DILTIAZEM CD 240 MG CAP.ER.24H PO SCH (20:24)
[2019-05-13] MEDS: MONTELUKAST 10 MG TAB PO SCH (20:24)
[2019-05-13] MEDS: CHOLECALCIFEROL 1,000 UNIT TAB PO SCH (20:24)
[2019-05-14] MEDS: HYDROcodone/APAP 10-325MG 1 EACH TAB PO PRN ×4 (01:08→21:15)
[2019-05-14] MEDS: HYDROmorphone 0.5 MG/0.5 ML SYRINGE IVP PRN ×7 (02:31→21:16)
[2019-05-14] MEDS: methylPREDNISolone SOD SUCCI 125 MG/2 ML VIAL IV SCH ×3 (05:36→17:54)
[2019-05-14 07:01] LABS: Basophils # (A) 0.2 k/uL (0-0.2); Basophils % (A) 2 %; Eosinophils % (A) 0 %; HGB 12.6 gm/dL (11.4-16.0); Hypochromasia Moderate; Lymphocytes # (A) 0.2 k/uL (1.0-4.8); Lymphocytes % (A) 2 %; MCH 29.8 pg (25.0-35.0); MCHC 32.3 g/dL (31.0-37.0); MCV 92.3 fL (80.0-100.0); Mean Platelet Volume 6.1; Monocytes # (A) 0.5 k/uL (0-1.0); Monocytes % (A) 4 %; Neutrophils # (A) 10.8 k/uL (1.3-7.7); Neutrophils % (A) 91 %; Platelet Count 291 k/uL (150-450); RBC 4.22 m/uL (3.80-5.40); RDW 14.6 % (11.5-15.5); WBC 11.9 k/uL (3.8-10.6)
[2019-05-14] MEDS: DOCUSATE 100 MG CAP PO SCH (07:05)
[2019-05-14] MEDS: METHIMAZOLE 5 MG TAB PO SCH (07:05)
[2019-05-14] MEDS: FUROSEMIDE 20 MG TAB PO SCH (07:05)
[2019-05-14] MEDS: PANTOPRAZOLE 40 MG TABLET PO SCH (07:05)
[2019-05-14 07:06] LABS: Glucose,Whole Blood 124 mg/dL (75-99)
[2019-05-14] MEDS: INSULIN ASPART (NovoLOG) 100 UNIT/ML VIAL SQ SCH ×4 (07:06→20:07)
[2019-05-14] MEDS: ENOXAPARIN 40 MG/0.4 ML SYRINGE SQ SCH (07:06)
[2019-05-14 07:07] LABS: ALT 62 U/L (9-52); AST 31 U/L (14-36); African American GFR (CKD) >90 (>60 ml/min/1.73 sqM); Albumin 3.5 g/dL (3.5-5.0); Alkaline Phosphatase 76 U/L (38-126); Blood Urea Nitrogen 18 mg/dL (7-17); Calcium 8.7 mg/dL (8.4-10.2); Chloride 91 mmol/L (98-107); Glucose 148 mg/dL (74-99); Potassium 4.1 mmol/L (3.5-5.1); Sodium 139 mmol/L (137-145); Total Bilirubin 0.4 mg/dL (0.2-1.3); Total Protein 6.1 g/dL (6.3-8.2)
[2019-05-14] MEDS: IPRATROPIUM-ALBUTEROL 3 ML NEB INHALATION SCH ×4 (07:13→19:23)
[2019-05-14 07:20] LABS: Anion Gap 7 mmol/L
[2019-05-14 07:25] LABS: Carbon Dioxide 41 mmol/L (22-30)
[2019-05-14 11:33] LABS: Glucose,Whole Blood 184 mg/dL (75-99)
[2019-05-14] MEDS: ONDANSETRON 4 MG/2 ML VIAL IVP PRN ×2 (11:34→21:22)
[2019-05-14] MEDS: ALPRAZolam 0.25 MG TAB PO PRN ×2 (11:34→20:07)
--- NOTE | 2019-05-14 12:28 | P.PN ---
Subjective Progress Note Date: 05/14/19 This is a 64-year-old female well-known to my services. Patient presented with complaints of increased shortness of breath. Patient has known advanced COPD and wears home O2 but states that her shortness of breath had been progressively increasing over the past few days with having low-grade temps. Patient reports that she is having increased sputum production and cough. Patient does have a known past medical history of coronary artery disease, cancer, heart failure, COPD, GERD, hypertension, liver disease, mitral valve prolapse, paroxysmal atrial fibrillation which she's not on anticoagulation due to previous GI bleed, C. diff, anxiety and depression. EKG completed showing normal sinus rhythm. Two-view chest x-ray has been ordered. Patient started on Solu-Medrol and breathing treatments. Patient reports improvement already with her shortness of breath. Patient's clothes wringer Dr. KERRIE Webster has been consulted sputum culture ordered. Patient does have a elevated white blood cell count 20.5. Patient denies any recent steroids. D-dimer 0.22. At this time patient denies chest pain. Patient denies nausea vomiting or diarrhea. Patient denies any urinary burning or frequency On 05/08/2019 patient is alert and oriented 3. Patient started some shortness of breath with wheezing. Patient remains on Solu-Medrol and DuoNeb breathing treatments. Pulmonary services have been consulted. White blood cell improving to 14.7. At This time patient denies chest pain. Patient denies nausea vomiting or diarrhea. Patient denies any urinary burning or frequency On 05/09/2019 patient is alert and oriented 3. Patient reports improvement with her shortness of breath. White blood cell improving to 12.7. Patient remains on IV steroids for COPD exacerbation. Pulmonary services are following. At this time patient denies chest pain. Patient denies nausea vomiting or diarrhea. Patient denies any urinary burning or frequency On 05/10/2019 patient was seen and examined on the medical floor, she is alert and oriented 3 in no apparent distress, she is still complaining of abdominal discomfort and complaining of shortness of breath with any activity, she is complaining of pain in her right foot, there is bluish discoloration in the right big toe, patient stated that she dropped her oxygen tank on her foot, otherwise there is no complaints there is no fever or chills no headache or dizziness no chest pain no nausea or vomiting no abdominal pain no diarrhea and no urinary symptoms On 05/11/2019 patient was seen and examined on the medical floor she is alert and oriented 3 in no apparent distress she is still complaining of cough and shortness of breath otherwise she denies any complaints there is no fever or chills no headache or dizziness no chest pain no nausea or vomiting no abdominal pain no diarrhea and no urinary symptoms On 05/12/2019 patient's alert and oriented 3. Patient still complaining of cough and shortness breath. Pulmonary and infectious disease are following. Patient denies chest pain. Patient denies nausea vomiting or diarrhea. Patient denies any urinary burning or frequency On 05/13/2019 patient is alert and oriented 3. Patient still having increased wheezing and shortness of breath with ambulation. Sputum culture growing haemophilus influenza. Discussed case with Dr. Valdez per infectious disease per infectious disease likely colonizer no need for antibiotics at this time chest x-ray will be repeated. Patient denies chest pain. Patient denies nausea vomiting or diarrhea. Patient did have normal bowel movement this a.m. On patient's alert and oriented 3. Patient does have improvement with wheezing and shortness of breath. Medications adjusted per pulmonary. At this time patient does still complain of shortness breath with activity. Patient denies chest pain. Patient denies nausea vomiting or diarrhea. Denies any urinary burning or frequency Objective - Vital Signs Vital signs: Vital Signs Temp 98.2 F 05/14/19 07:00 Pulse 88 05/14/19 11:27 Resp 18 05/14/19 07:00 BP 132/55 05/14/19 07:00 Pulse Ox 95 05/14/19 07:00 Intake & Output 05/13/19 05/14/19 05/14/19 18:59 06:59 18:59 Intake Total 200 Balance 200 Weight 50.349 kg Intake: Oral 200 Other: Voiding Method Toilet # Voids 3 2 - Exam Head normocephalic Neck supple Lungs diminished bilaterally with expiratory wheezing Heart regular rate and rhythm S1-S2, no rub or gallop Abdomen is soft nontender nondistended positive bowel sounds no hepatosplenomegaly Extremities no edema Neuro alert and orientated to 3 - Labs CBC & Chem 7: 05/14/19 06:40 05/14/19 06:40 Labs: Abnormal Lab Results - Last 24 Hours (Table) 05/13/19 05/13/19 05/14/19 Range/Units 16:46 20:06 06:40 WBC 11.9 H (3.8-10.6) k/uL Neutrophils # 10.8 H (1.3-7.7) k/uL Lymphocytes # 0.2 L (1.0-4.8) k/uL Chloride (98-107) mmol/L Carbon Dioxide (22-30) mmol/L BUN (7-17) mg/dL Creatinine (0.52-1.04) mg/dL Glucose (74-99) mg/dL POC Glucose (mg/dL) 196 H 139 H (75-99) mg/dL ALT (9-52) U/L Total Protein (6.3-8.2) g/dL 05/14/19 05/14/19 05/14/19 Range/Units 06:40 07:01 11:22 WBC (3.8-10.6) k/uL Neutrophils # (1.3-7.7) k/uL Lymphocytes # (1.0-4.8) k/uL Chloride 91 L (98-107) mmol/L Carbon Dioxide 41 H* (22-30) mmol/L BUN 18 H (7-17) mg/dL Creatinine 0.29 L (0.52-1.04) mg/dL Glucose 148 H (74-99) mg/dL POC Glucose (mg/dL) 124 H 184 H (75-99) mg/dL ALT 62 H (9-52) U/L Total Protein 6.1 L (6.3-8.2) g/dL Microbiology - Last 24 Hours (Table) 05/07/19 13:20 Blood Culture - Final Blood No Growth after 144 hours Assessment and Plan Assessment: 1. Increased shortness of breath related to his COPD exacerbation. Chest x-ray has been ordered sputum culture ordered pulmonary service is consulted. Patient started on Solu-Medrol and breathing treatments. Chest x-ray completed showing chronic changes without acute pulmonary process. Per pulmonary services continue Solu-Medrol hold off on antibiotics. Sputum culture growing haemophilus influenzae. Discussed case with Dr. Valdez per infectious disease this is likely a colonizer chest x-ray has been repeated no need for antibiotics at this time 2. History of chronic hypoxic respiratory failure. Patient maintained on home O2 3. History of COPD 4. History of C. diff patient has been previously treated. Infectious disease is following 5. History of hyperthyroidism. Patient maintained on Tapazole 6. History of chronic back pain 7. History of liver lesions. Patient was evaluated by GI services to increase admission patient to follow-up outpatient with GI services 8. History of left ovarian lesion. Discussed with PCP patient to follow-up outpatient with [facility] RN 9. History of paroxysmal atrial fibrillation. Not on anticoagulation due to history of GI bleed 10. Umbilicus hernia. Patient being followed by surgical services 11. Back and neck pain. Thoracic spine x-ray completed showing scoliosis. Cervical spine x-ray completed showing mild degenerative changes with foraminal narrowing discussed 12. Foot pain. X-ray for completed showing no acute osseous abnormality follow up exams can be performed at 7 days from acute trauma for continued pain osteopenia bone density could be performed for additional evaluation 13. Constipation. Colace added. Resolved DVT prophylaxis Lovenox. GI prophylaxis Pepcid PT OT consult I performed an examination of the patient and discussed their management with the Nurse Practitioner. I have reviewed the Nurse Practitioner's notes and agree with the documented findings and plan of care
[2019-05-14 17:09] LABS: Glucose,Whole Blood 128 mg/dL (75-99)
[2019-05-14 20:07] LABS: Glucose,Whole Blood 226 mg/dL (75-99)
[2019-05-14] MEDS: MONTELUKAST 10 MG TAB PO SCH (20:07)
[2019-05-14] MEDS: CHOLECALCIFEROL 1,000 UNIT TAB PO SCH (20:07)
[2019-05-14] MEDS: DILTIAZEM CD 240 MG CAP.ER.24H PO SCH (21:46)
[2019-05-14] MEDS: IPRATROPIUM-ALBUTEROL 3 ML NEB INHALATION PRN (23:35)
[2019-05-15] MEDS: methylPREDNISolone SOD SUCCI 125 MG/2 ML VIAL IV SCH ×4 (00:16→17:46)
[2019-05-15] MEDS: HYDROmorphone 0.5 MG/0.5 ML SYRINGE IVP PRN ×7 (00:19→22:01)
[2019-05-15] MEDS: IPRATROPIUM-ALBUTEROL 3 ML NEB INHALATION PRN ×2 (03:21→23:18)
[2019-05-15] MEDS: HYDROcodone/APAP 10-325MG 1 EACH TAB PO PRN ×4 (03:53→22:01)
[2019-05-15 06:58] LABS: Glucose,Whole Blood 129 mg/dL (75-99)
[2019-05-15] MEDS: IPRATROPIUM-ALBUTEROL 3 ML NEB INHALATION SCH ×4 (07:35→19:38)
[2019-05-15] MEDS: INSULIN ASPART (NovoLOG) 100 UNIT/ML VIAL SQ SCH ×4 (07:46→21:07)
--- NOTE | 2019-05-15 07:51 | P.PN ---
Subjective Progress Note Date: 05/15/19 Principal diagnosis: 1. Increased shortness of breath related to his COPD exacerbation. 2. History of chronic hypoxic respiratory failure. 3. History of COPD 4. History of C. diff patient has been previously treated. 5. History of hyperthyroidism on Tapazole 6. History of chronic back pain 7. History of liver lesions. 8. History of left ovarian lesion. 9. History of paroxysmal atrial fibrillation. 10. Umbilicus hernia. 11. Back and neck pain. T 12. Foot pain. 13. Constipation. 05/15/2019, patient seen walter examined during the rounds labs reviewed medications reviewed she has been on low-dose Lasix reading slightly better some wheezing are present but significantly improved compared to prior exam, trace edema is present slightly improved though 05/13/2019, patient seen walter examined still having shortness of breath however she is feeling more chest tightness she feels that Pulmicort is not helping and would like to be discontinued, she has a little bit more swelling the lower extremity and retaining water O put her on Lasix as she used to take before we'll start with 20 mg daily and monitor her closely 05/12/2019, patient seen walter reexamined is still complaining of shortness of breath cough is bettersputum production is present she is getting breathing treatment seems to be helping, labs reviewed medications reviewed, last chest x- ray performed 5 days ago overall COPD-like changes stable, labs from yesterday CBC is normal however CO2 and chemistry was elevated chronically likely related to COPD and his stage Objective - Vital Signs Vital signs: Vital Signs Temp 98.0 F 05/15/19 07:00 Pulse 84 05/15/19 07:46 Resp 16 05/15/19 07:00 BP 152/84 05/15/19 07:00 Pulse Ox 94 L 05/15/19 07:00 Intake & Output 05/14/19 05/15/19 05/15/19 18:59 06:59 18:59 Other: Voiding Method Toilet # Voids 3 # Bowel Movements 2 - Exam - Constitutional General appearance: Present: average body habitus, cooperative, disheveled - EENT Eyes: Present: anicteric sclerae, EOMI, PERRLA, poor dentition, normal ap [place]ance ENT: Present: normal oropharynx Ears: bilateral: normal - Neck Carotids: bilateral: upstroke normal Thyroid: bilateral: normal size - Respiratory Respiratory: bilateral: diminished, wheezing, negative: CTA, dullness, rales, rhonchi, prolonged expiration, prolonged inspiration, other - Cardiovascular Rhythm: regular Heart sounds: normal: S1, S2 - Gastrointestinal General gastrointestinal: Present: normal bowel sounds, soft - Neurologic Neurologic: Present: CNII-XII intact - Musculoskeletal Musculoskeletal: Present: gait normal, generalized weakness, strength equal bilaterally - Psychiatric Psychiatric: Present: A&O x's 3, appropriate affect, intact judgment & insight - Labs CBC & Chem 7: 05/14/19 06:40 05/14/19 06:40 Labs: Abnormal Lab Results - Last 24 Hours (Table) 05/14/19 05/14/19 05/14/19 Range/Units 11:22 16:58 19:52 POC Glucose (mg/dL) 184 H 128 H 226 H (75-99) mg/dL 05/15/19 Range/Units 06:46 POC Glucose (mg/dL) 129 H (75-99) mg/dL Assessment and Plan Assessment: Acute COPD extubation Chronic hypoxic respiratory failure hypoxic and hypercapnic 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 difficile colitis History of hyperthyroidism Liver lesion patient to follow-up with GI services on outpatient Fluid retention Plan: Continue breathing treatments Deep breathing exercises incentive spirometry DVT prophylaxis Continue IV steroids and start tapering it down Continued DVT prophylaxis IV fluids can be tapered down as well Low-dose Lasix DC Pulmicort Agree with discharge planning follow-up with primary pulmonary as outpatient Further recommendations pending plan of care as per clinical response of the patient Time with Patient: Greater than 30
[2019-05-15] MEDS: PANTOPRAZOLE 40 MG TABLET PO SCH (08:08)
[2019-05-15] MEDS: FUROSEMIDE 20 MG TAB PO SCH (08:08)
[2019-05-15] MEDS: METHIMAZOLE 5 MG TAB PO SCH (08:09)
[2019-05-15] MEDS: ALPRAZolam 0.25 MG TAB PO PRN ×2 (08:09→20:01)
[2019-05-15] MEDS: ENOXAPARIN 40 MG/0.4 ML SYRINGE SQ SCH (08:09)
[2019-05-15] MEDS: DOCUSATE 100 MG CAP PO SCH (08:09)
[2019-05-15] MEDS: ONDANSETRON 4 MG/2 ML VIAL IVP PRN ×2 (08:16→17:48)
[2019-05-15 08:42] LABS: ALT 104 U/L (9-52); AST 47 U/L (14-36); African American GFR (CKD) >90 (>60 ml/min/1.73 sqM); Albumin 3.7 g/dL (3.5-5.0); Alkaline Phosphatase 76 U/L (38-126); Blood Urea Nitrogen 17 mg/dL (7-17); Calcium 8.7 mg/dL (8.4-10.2); Chloride 90 mmol/L (98-107); Glucose 130 mg/dL (74-99); Potassium 3.9 mmol/L (3.5-5.1); Sodium 139 mmol/L (137-145); Total Bilirubin 0.4 mg/dL (0.2-1.3); Total Protein 6.1 g/dL (6.3-8.2)
[2019-05-15 08:49] LABS: Anion Gap -4 mmol/L; Basophils # (A) 0.1 k/uL (0-0.2); Basophils % (A) 1 %; Eosinophils % (A) 0 %; HGB 12.8 gm/dL (11.4-16.0); Hypochromasia Slight; Lymphocytes # (A) 0.4 k/uL (1.0-4.8); Lymphocytes % (A) 3 %; MCH 30.5 pg (25.0-35.0); MCHC 33.5 g/dL (31.0-37.0); MCV 91.1 fL (80.0-100.0); Mean Platelet Volume 6.4; Monocytes # (A) 0.3 k/uL (0-1.0); Monocytes % (A) 3 %; Neutrophils # (A) 12.3 k/uL (1.3-7.7); Neutrophils % (A) 93 %; Platelet Count 286 k/uL (150-450); RBC 4.18 m/uL (3.80-5.40); RDW 14.6 % (11.5-15.5); WBC 13.2 k/uL (3.8-10.6)
[2019-05-15 08:54] LABS: Carbon Dioxide 53 mmol/L (22-30)
[2019-05-15 09:50] LABS: Toxic Granulation Present
--- NOTE | 2019-05-15 11:05 | P.PN ---
Subjective Progress Note Date: 05/15/19 This is a 64-year-old female well-known to my services. Patient presented with complaints of increased shortness of breath. Patient has known advanced COPD and wears home O2 but states that her shortness of breath had been progressively increasing over the past few days with having low-grade temps. Patient reports that she is having increased sputum production and cough. Patient does have a known past medical history of coronary artery disease, cancer, heart failure, COPD, GERD, hypertension, liver disease, mitral valve prolapse, paroxysmal atrial fibrillation which she's not on anticoagulation due to previous GI bleed, C. diff, anxiety and depression. EKG completed showing normal sinus rhythm. Two-view chest x-ray has been ordered. Patient started on Solu-Medrol and breathing treatments. Patient reports improvement already with her shortness of breath. 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 Patient does have a elevated white blood cell count 20.5. Patient denies any recent steroids. D-dimer 0.22. At this time patient denies chest pain. Patient denies nausea vomiting or diarrhea. Patient denies any urinary burning or frequency On 05/08/2019 patient is alert and oriented 3. Patient started some shortness of breath with wheezing. Patient remains on Solu-Medrol and DuoNeb breathing treatments. Pulmonary services have been consulted. White blood cell improving to 14.7. At This time patient denies chest pain. Patient denies nausea vomiting or diarrhea. Patient denies any urinary burning or frequency On 05/09/2019 patient is alert and oriented 3. Patient reports improvement with her shortness of breath. White blood cell improving to 12.7. Patient remains on IV steroids for COPD exacerbation. Pulmonary services are following. At this time patient denies chest pain. Patient denies nausea vomiting or diarrhea. Patient denies any urinary burning or frequency On 05/10/2019 patient was seen and examined on the medical floor, she is alert and oriented 3 in no apparent distress, she is still complaining of abdominal discomfort and complaining of shortness of breath with any activity, she is complaining of pain in her right foot, there is bluish discoloration in the right big toe, patient stated that she dropped her oxygen tank on her foot, otherwise there is no complaints there is no fever or chills no headache or dizziness no chest pain no nausea or vomiting no abdominal pain no diarrhea and no urinary symptoms On 05/11/2019 patient was seen and examined on the medical floor she is alert and oriented 3 in no apparent distress she is still complaining of cough and shortness of breath otherwise she denies any complaints there is no fever or chills no headache or dizziness no chest pain no nausea or vomiting no abdominal pain no diarrhea and no urinary symptoms On 05/12/2019 patient's alert and oriented 3. Patient still complaining of cough and shortness breath. Pulmonary and infectious disease are following. Patient denies chest pain. Patient denies nausea vomiting or diarrhea. Patient denies any urinary burning or frequency On 05/13/2019 patient is alert and oriented 3. Patient still having increased wheezing and shortness of breath with ambulation. Sputum culture growing haemophilus influenza. Discussed case with Dr. Valdez per infectious disease per infectious disease likely colonizer no need for antibiotics at this time chest x-ray will be repeated. Patient denies chest pain. Patient denies nausea vomiting or diarrhea. Patient did have normal bowel movement this a.m. On 05/14/2019 patient's alert and oriented 3. Patient does have improvement with wheezing and shortness of breath. Medications adjusted per pulmonary. At this time patient does still complain of shortness breath with activity. Patient denies chest pain. Patient denies nausea vomiting or diarrhea. Denies any urinary burning or frequency On 05/15/2019 patient's alert and oriented 3. Upon auscultation patient sounds improved with shortness of breath and wheezing. Patient reports that she still having some shortness breath with activity. pulmonary services are following. At this time patient denies chest pain. Patient denies nausea vomiting or diarrhea. Patient denies any urinary burning or frequency Objective - Vital Signs Vital signs: Vital Signs Temp 98.0 F 05/15/19 07:00 Pulse 84 05/15/19 07:46 Resp 16 05/15/19 07:40 BP 152/84 05/15/19 07:00 Pulse Ox 94 L 05/15/19 07:00 Intake & Output 05/14/19 05/15/19 05/15/19 18:59 06:59 18:59 Other: Voiding Method Toilet # Voids 3 # Bowel Movements 2 - Exam Head normocephalic Neck supple Lungs diminished bilaterally with expiratory wheezing Heart regular rate and rhythm S1-S2, no rub or gallop Abdomen is soft nontender nondistended positive bowel sounds no hepatos plenomegaly Extremities no edema Neuro alert and orientated to 3 - Labs CBC & Chem 7: 05/15/19 07:06 05/15/19 07:06 Labs: Abnormal Lab Results - Last 24 Hours (Table) 05/14/19 05/14/19 05/14/19 Range/Units 11:22 16:58 19:52 WBC (3.8-10.6) k/uL Neutrophils # (1.3-7.7) k/uL Lymphocytes # (1.0-4.8) k/uL Chloride (98-107) mmol/L Carbon Dioxide (22-30) mmol/L Creatinine (0.52-1.04) mg/dL Glucose (74-99) mg/dL POC Glucose (mg/dL) 184 H 128 H 226 H (75-99) mg/dL AST (14-36) U/L ALT (9-52) U/L Total Protein (6.3-8.2) g/dL 05/15/19 05/15/19 05/15/19 Range/Units 06:46 07:06 07:06 WBC 13.2 H (3.8-10.6) k/uL Neutrophils # 12.3 H (1.3-7.7) k/uL Lymphocytes # 0.4 L (1.0-4.8) k/uL Chloride 90 L (98-107) mmol/L Carbon Dioxide 53 H* (22-30) mmol/L Creatinine 0.31 L (0.52-1.04) mg/dL Glucose 130 H (74-99) mg/dL POC Glucose (mg/dL) 129 H (75-99) mg/dL AST 47 H (14-36) U/L ALT 104 H (9-52) U/L Total Protein 6.1 L (6.3-8.2) g/dL Assessment and Plan Assessment: 1. Increased shortness of breath related to his COPD exacerbation. Chest x-ray has been ordered sputum culture ordered pulmonary service is consulted. Patient started on Solu-Medrol and breathing treatments. Chest x-ray completed showing chronic changes without acute pulmonary process. Per pulmonary services continue Solu-Medrol hold off on antibiotics. Sputum culture growing haemophilus influenzae. Discussed case with Dr. Valdez per infectious disease this is likely a colonizer chest x-ray has been repeated no need for antibiotics at this time 2. History of chronic hypoxic respiratory failure. Patient maintained on home O2 3. History of COPD 4. History of C. diff patient has been previously treated. Infectious disease is following 5. History of hyperthyroidism. Patient maintained on Tapazole 6. History of chronic back pain 7. History of liver lesions. Patient was evaluated by GI services to increase admission patient to follow-up outpatient with GI services 8. History of left ovarian lesion. Discussed with PCP patient to follow-up outpatient with [facility] 9. History of paroxysmal atrial fibrillation. Not on anticoagulation due to history of GI bleed 10. Umbilicus hernia. Patient being followed by surgical services 11. Back and neck pain. Thoracic spine x-ray completed showing scoliosis. Cervical spine x-ray completed showing mild degenerative changes with foraminal narrowing discussed 12. Foot pain. X-ray for completed showing no acute osseous abnormality follow up exams can be performed at 7 days from acute trauma for continued pain osteopenia bone density could be performed for additional evaluation 13. Constipation. Colace added. Resolved DVT prophylaxis Lovenox. GI prophylaxis protonix PT OT consult I performed an examination of the patient and discussed their management with the Nurse Practitioner. I have reviewed the Nurse Practitioner's notes and agree with the documented findings and plan of care
[2019-05-15 12:07] LABS: Glucose,Whole Blood 139 mg/dL (75-99)
[2019-05-15 17:23] LABS: Glucose,Whole Blood 195 mg/dL (75-99)
[2019-05-15] MEDS: DILTIAZEM CD 240 MG CAP.ER.24H PO SCH (20:01)
[2019-05-15] MEDS: MONTELUKAST 10 MG TAB PO SCH (20:01)
[2019-05-15] MEDS: CHOLECALCIFEROL 1,000 UNIT TAB PO SCH (20:01)
[2019-05-15 20:47] LABS: Glucose,Whole Blood 173 mg/dL (75-99)
[2019-05-16] MEDS: methylPREDNISolone SOD SUCCI 125 MG/2 ML VIAL IV SCH ×4 (00:54→17:50)
[2019-05-16] MEDS: IPRATROPIUM-ALBUTEROL 3 ML NEB INHALATION PRN (03:21)
[2019-05-16] MEDS: HYDROmorphone 0.5 MG/0.5 ML SYRINGE IVP PRN ×4 (03:39→17:50)
[2019-05-16] MEDS: HYDROcodone/APAP 10-325MG 1 EACH TAB PO PRN ×4 (04:15→22:24)
[2019-05-16 07:05] LABS: Glucose,Whole Blood 144 mg/dL (75-99)
[2019-05-16] MEDS: INSULIN ASPART (NovoLOG) 100 UNIT/ML VIAL SQ SCH ×4 (07:15→20:37)
[2019-05-16] MEDS: PANTOPRAZOLE 40 MG TABLET PO SCH (07:16)
[2019-05-16] MEDS: FUROSEMIDE 20 MG TAB PO SCH (07:16)
[2019-05-16] MEDS: DOCUSATE 100 MG CAP PO SCH (07:16)
[2019-05-16] MEDS: METHIMAZOLE 5 MG TAB PO SCH (07:16)
[2019-05-16] MEDS: ENOXAPARIN 40 MG/0.4 ML SYRINGE SQ SCH (07:16)
[2019-05-16] MEDS: IPRATROPIUM-ALBUTEROL 3 ML NEB INHALATION SCH ×4 (07:55→20:31)
[2019-05-16 08:03] LABS: Basophils # (A) 0.2 k/uL (0-0.2); Basophils % (A) 1 %; Eosinophils % (A) 0 %; HCT 41.6 % (34.0-46.0); HGB 12.9 gm/dL (11.4-16.0); Hypochromasia Moderate; Lymphocytes # (A) 0.4 k/uL (1.0-4.8); Lymphocytes % (A) 2 %; MCH 29.5 pg (25.0-35.0); MCV 95.2 fL (80.0-100.0); Mean Platelet Volume 6.2; Monocytes # (A) 0.6 k/uL (0-1.0); Monocytes % (A) 4 %; Neutrophils # (A) 14.8 k/uL (1.3-7.7); Neutrophils % (A) 93 %; Platelet Count 272 k/uL (150-450); RBC 4.37 m/uL (3.80-5.40); RDW 14.6 % (11.5-15.5)
[2019-05-16 08:19] LABS: ALT 126 U/L (9-52); AST 45 U/L (14-36); African American GFR (CKD) >90 (>60 ml/min/1.73 sqM); Albumin 3.7 g/dL (3.5-5.0); Alkaline Phosphatase 75 U/L (38-126); Blood Urea Nitrogen 18 mg/dL (7-17); Calcium 8.7 mg/dL (8.4-10.2); Chloride 88 mmol/L (98-107); Glucose 138 mg/dL (74-99); Potassium 3.9 mmol/L (3.5-5.1); Sodium 139 mmol/L (137-145); Total Bilirubin 0.4 mg/dL (0.2-1.3); Total Protein 6.1 g/dL (6.3-8.2)
[2019-05-16 08:25] LABS: Anion Gap 8 mmol/L
[2019-05-16 08:27] LABS: Carbon Dioxide 43 mmol/L (22-30)
[2019-05-16 11:40] LABS: Glucose,Whole Blood 175 mg/dL (75-99)
--- NOTE | 2019-05-16 11:48 | US ---
EXAMINATION TYPE: US venous doppler duplex LE LT DATE OF EXAM: 05/16/2019 11:29 AM COMPARISON: NONE CLINICAL HISTORY: left leg swelling. swelling, no h/o dvt, patient is on steroids and says left leg d oes swell often SIDE PERFORMED: Left TECHNIQUE: The lower extremity deep venous system is examined utilizing real time linear array sonog jed with graded compression, doppler sonography and color-flow sonography. VESSELS IMAGED: External Iliac Vein (EIV) Common Femoral Vein Deep Femoral Vein Greater Saphenous Vein * Femoral Vein Popliteal Vein Small Saphenous Vein * Proximal Calf Veins (* superficial vessels) Left Leg: Appears negative for DVT Grayscale, color doppler, spectral doppler imaging performed of the deep veins of the left lower extr emity. There is normal flow, compressibility, vascular waveforms. IMPRESSION: Subcutaneous edema without evidence of acute deep venous thrombosis within the left lowe r extremity.
--- NOTE | 2019-05-16 13:10 | P.PN ---
Subjective Progress Note Date: 05/16/19 This is a 64-year-old female well-known to my services. Patient presented with complaints of increased shortness of breath. Patient has known advanced COPD and wears home O2 but states that her shortness of breath had been progressively increasing over the past few days with having low-grade temps. Patient reports that she is having increased sputum production and cough. Patient does have a known past medical history of coronary artery disease, cancer, heart failure, COPD, GERD, hypertension, liver disease, mitral valve prolapse, paroxysmal atrial fibrillation which she's not on anticoagulation due to previous GI bleed, C. diff, anxiety and depression. EKG completed showing normal sinus rhythm. Two-view chest x-ray has been ordered. Patient started on Solu-Medrol and breathing treatments. Patient reports improvement already with her shortness of breath. 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 KERRIE Webster has been consulted sputum culture ordered. Patient does have a elevated white blood cell count 20.5. Patient denies any recent steroids. D-dimer 0.22. At this time patient denies chest pain. Patient denies nausea vomiting or diarrhea. Patient denies any urinary burning or frequency On 05/08/2019 patient is alert and oriented 3. Patient started some shortness of breath with wheezing. Patient remains on Solu-Medrol and DuoNeb breathing treatments. Pulmonary services have been consulted. White blood cell improving to 14.7. At This time patient denies chest pain. Patient denies nausea vomiting or diarrhea. Patient denies any urinary burning or frequency On 05/09/2019 patient is alert and oriented 3. Patient reports improvement with her shortness of breath. White blood cell improving to 12.7. Patient remains on IV steroids for COPD exacerbation. Pulmonary services are following. At this time patient denies chest pain. Patient denies nausea vomiting or diarrhea. Patient denies any urinary burning or frequency On 05/10/2019 patient was seen and examined on the medical floor, she is alert and oriented 3 in no apparent distress, she is still complaining of abdominal discomfort and complaining of shortness of breath with any activity, she is complaining of pain in her right foot, there is bluish discoloration in the right big toe, patient stated that she dropped her oxygen tank on her foot, otherwise there is no complaints there is no fever or chills no headache or dizziness no chest pain no nausea or vomiting no abdominal pain no diarrhea and no urinary symptoms On 05/11/2019 patient was seen and examined on the medical floor she is alert and oriented 3 in no apparent distress she is still complaining of cough and shortness of breath otherwise she denies any complaints there is no fever or chills no headache or dizziness no chest pain no nausea or vomiting no abdominal pain no diarrhea and no urinary symptoms On 05/12/2019 patient's alert and oriented 3. Patient still complaining of cough and shortness breath. Pulmonary and infectious disease are following. Patient denies chest pain. Patient denies nausea vomiting or diarrhea. Patient denies any urinary burning or frequency On 05/13/2019 patient is alert and oriented 3. Patient still having increased wheezing and shortness of breath with ambulation. Sputum culture growing haemophilus influenza. Discussed case with Dr. Valdez per infectious disease per infectious disease likely colonizer no need for antibiotics at this time chest x-ray will be repeated. Patient denies chest pain. Patient denies nausea vomiting or diarrhea. Patient did have normal bowel movement this a.m. On 05/14/2019 patient's alert and oriented 3. Patient does have improvement with wheezing and shortness of breath. Medications adjusted per pulmonary. At this time patient does still complain of shortness breath with activity. Patient denies chest pain. Patient denies nausea vomiting or diarrhea. Denies any urinary burning or frequency On 05/15/2019 patient's alert and oriented 3. Upon auscultation patient sounds improved with shortness of breath and wheezing. Patient reports that she still having some shortness breath with activity. pulmonary services are following. At this time patient denies chest pain. Patient denies nausea vomiting or diarrhea. Patient denies any urinary burning or frequency 05/16/2019 patient still complaining of shortness of breath and cough. But does report some improvement. Pulmonary service is following. Patient does have left leg swelling. Venous Doppler ordered to rule out DVT. Patient has been refusing the Lovenox injections. She also refuses the SCDs. She reports that she gets hematomas in the stomach if she uses the anticoagulation injections. Patient encouraged to ambulate. Patient denies any chest pain, nausea or vo miting, bowel movement changes or urinary symptoms. Liver enzymes are elevated Tylenol discontinued. Patient also is on [place] and Tapazole we'll monitor closely the liver enzymes while taking these medications. Objective - Vital Signs Vital signs: Vital Signs Temp 98.4 F 05/16/19 07:00 Pulse 80 05/16/19 11:52 Resp 16 05/16/19 07:00 BP 170/79 05/16/19 07:00 Pulse Ox 96 05/16/19 07:00 Intake & Output 05/15/19 05/16/19 05/16/19 18:59 06:59 18:59 Weight 58.2 kg Other: Voiding Method Toilet # Voids 2 - Exam Head normocephalic Neck supple Lungs diminished bilaterally no wheezing Heart regular rate and rhythm S1-S2, no rub or gallop Abdomen is soft nontender nondistended positive bowel sounds no hepatosplenomegaly Extremities left leg swelling. Right toes bruising Neuro alert and orientated to 3 - Labs CBC & Chem 7: 05/16/19 07:06 05/16/19 07:06 Labs: Abnormal Lab Results - Last 24 Hours (Table) 05/15/19 05/15/19 05/16/19 Range/Units 17:09 20:36 06:47 WBC (3.8-10.6) k/uL Neutrophils # (1.3-7.7) k/uL Lymphocytes # (1.0-4.8) k/uL Chloride (98-107) mmol/L Carbon Dioxide (22-30) mmol/L BUN (7-17) mg/dL Creatinine (0.52-1.04) mg/dL Glucose (74-99) mg/dL POC Glucose (mg/dL) 195 H 173 H 144 H (75-99) mg/dL AST (14-36) U/L ALT (9-52) U/L Total Protein (6.3-8.2) g/dL 05/16/19 05/16/19 05/16/19 Range/Units 07:06 07:06 11:28 WBC 16.0 H (3.8-10.6) k/uL Neutrophils # 14.8 H (1.3-7.7) k/uL Lymphocytes # 0.4 L (1.0-4.8) k/uL Chloride 88 L (98-107) mmol/L Carbon Dioxide 43 H* (22-30) mmol/L BUN 18 H (7-17) mg/dL Creatinine 0.31 L (0.52-1.04) mg/dL Glucose 138 H (74-99) mg/dL POC Glucose (mg/dL) 175 H (75-99) mg/dL AST 45 H (14-36) U/L ALT 126 H (9-52) U/L Total Protein 6.1 L (6.3-8.2) g/dL Assessment and Plan Assessment: 1. Acute COPD exacerbation: Continue Solu-Medrol and breathing treatments. Chest x-ray completed showing chronic changes without acute pulmonary process. Per pulmonary services continue Solu-Medrol hold off on antibiotics. Sputum culture growing haemophilus influenzae. Discussed case with Dr. Valdez per infectious disease this is likely a colonizer chest x-ray has been repeated no need for antibiotics at this time. Discussed with pulmonary service and they have added Flovent since patient does not tolerate the Pulmicort. 2. History of chronic hypoxic respiratory failure. Patient maintained on home O2 3. History of COPD 4. History of C. diff patient has been previously treated. Infectious disease is following 5. History of hyperthyroidism. Patient maintained on Tapazole 6. History of chronic back pain 7. History of liver lesions. Patient was evaluated by GI services to increase admission patient to follow-up outpatient with GI services 8. History of left ovarian lesion. Discussed with PCP patient to follow-up outpatient with [facility] [employer] 9. History of paroxysmal atrial fibrillation. Not on anticoagulation due to history of GI bleed 10. Umbilicus hernia. Patient being followed by surgical services 11. Back and neck pain. Thoracic spine x-ray completed showing scoliosis. Cervical spine x-ray completed showing mild degenerative changes with foraminal narrowing discussed 12. Foot pain. X-ray for completed showing no acute osseous abnormality follow up exams can be performed at 7 days from acute trauma for continued pain osteopenia bone density could be performed for additional evaluation 13. Constipation. Colace added. Resolved 14. Elevated liver enzymes: Continue to monitor labs closely. Denies any abdominal pain. Patient has a known history of liver lesions as stated above and is following up with GI service outpatient. Also could be medication related. Patient does take [place] and Tapazole. We'll monitor liver enzymes closely. Discontinue Tylenol. 15. Hypertension with elevated blood pressure this morning. We'll have nursing staff repeat blood pressure. If blood pressure remains elevated will make fur ther medication adjustments 16. Left leg edema: Venous Doppler was negative for DVT. Keep leg elevated. I performed an examination of the patient and discussed their management with the physician Hospital Security Officer. I have reviewed the Physician Hospital Security Officer's notes and agree with the documented findings and plan of care
--- NOTE | 2019-05-16 13:17 | PN ---
PROGRESS NOTE DATE OF SERVICE: 05/16/2019 Patient is a 64-year-old female who is seen sitting up in bed, is awake, alert, does complain of pain all over. Has been told she needs to get up and get moving around and feels like her pain is not being well controlled. The patient is on oral [place] and has Dilaudid q.6 p.r.n. The patient is afebrile. Blood pressure is elevated today. Patient is in no acute distress. ON PHYSICAL EXAM: VITAL SIGNS: Temp 98.4, heart rate is 72, respiratory rate is 16, blood pressure is 170/79, O2 sats 96% on 2 L O2 via nasal cannula. HEENT. Head is normocephalic, atraumatic. Neck is supple. Trachea is midline. LUNGS: With decreased breath sounds. Prolonged expiratory phase. HEART: S1, S2 heard. Not tachycardic. ABDOMEN: Soft. Bowel sounds are positive. EXTREMITIES: With 1 to 2+ edema to the left lower extremity. Right lower extremity with no edema noted. NEUROLOGIC: Patient is awake and alert. LABS: White count 16.0, hemoglobin is 12.9, hematocrit 41.6 with 272,000 platelets. Sodium is 139, potassium is 3.9, chloride is 88, CO2 is 43, BUN is 18, creatinine 0.31. Glucose is 138. Total bilirubin 0.4, AST is 45, ALT is 126, total protein is 6.1, albumin is 3.7. IMAGING: Venous Doppler done earlier today to evaluate the left lower extremity is negative for acute DVT. Does show some subcutaneous edema. No other imaging to review. IMPRESSION: 1. Chronic obstructive pulmonary disease and asthma with acute exacerbation. 2. Recent history of Clostridium difficile colitis. 3. Hyperthyroidism. 4. History of atrial fibrillation. PLAN: Continue current medications, which have been reviewed. Continue with GI prophylaxis. Patient is refusing subcu heparin or Lovenox for DVT prophylaxis. Would add SCDs. Continue the IV Solu-Medrol. Will put patient on Flovent b.i.d. as patient is refusing Pulmicort. States that it causes her chest to feel tight. Increase activity as tolerated. We will follow patient closely with you making further changes as necessary. MMODL / IJN: [id number] /
[2019-05-16 16:49] LABS: Glucose,Whole Blood 115 mg/dL (75-99)
[2019-05-16 20:29] LABS: Glucose,Whole Blood 199 mg/dL (75-99)
[2019-05-16] MEDS: FLUTICASONE 220 MCG INHALER INHALATION SCH (20:30)
[2019-05-16] MEDS: MONTELUKAST 10 MG TAB PO SCH (20:38)
[2019-05-16] MEDS: CHOLECALCIFEROL 1,000 UNIT TAB PO SCH (20:38)
[2019-05-16] MEDS: DILTIAZEM CD 240 MG CAP.ER.24H PO SCH (20:38)
[2019-05-16] MEDS: ALPRAZolam 0.25 MG TAB PO PRN (20:39)
[2019-05-17] MEDS: IPRATROPIUM-ALBUTEROL 3 ML NEB INHALATION PRN ×2 (00:16→04:15)
[2019-05-17] MEDS: methylPREDNISolone SOD SUCCI 125 MG/2 ML VIAL IV SCH ×4 (01:43→17:12)
[2019-05-17] MEDS: HYDROmorphone 0.5 MG/0.5 ML SYRINGE IVP PRN ×4 (01:43→18:41)
[2019-05-17] MEDS: ONDANSETRON 4 MG/2 ML VIAL IVP PRN ×3 (01:47→20:43)
[2019-05-17] MEDS: HYDROcodone/APAP 10-325MG 1 EACH TAB PO PRN ×4 (05:21→22:45)
[2019-05-17 07:02] LABS: Glucose,Whole Blood 139 mg/dL (75-99)
[2019-05-17 07:25] LABS: Basophils # (A) 0.3 k/uL (0-0.2); Basophils % (A) 2 %; Eosinophils % (A) 0 %; HCT 40.1 % (34.0-46.0); HGB 12.5 gm/dL (11.4-16.0); Hypochromasia Slight; Lymphocytes # (A) 0.1 k/uL (1.0-4.8); Lymphocytes % (A) 1 %; MCH 29.9 pg (25.0-35.0); MCHC 31.1 g/dL (31.0-37.0); MCV 96.1 fL (80.0-100.0); Mean Platelet Volume 6.8; Monocytes # (A) 0.5 k/uL (0-1.0); Monocytes % (A) 4 %; Neutrophils # (A) 12.8 k/uL (1.3-7.7); Neutrophils % (A) 92 %; Platelet Count 237 k/uL (150-450); RBC 4.17 m/uL (3.80-5.40); RDW 15.2 % (11.5-15.5); WBC 13.9 k/uL (3.8-10.6)
[2019-05-17] MEDS: INSULIN ASPART (NovoLOG) 100 UNIT/ML VIAL SQ SCH ×4 (07:42→20:42)
[2019-05-17] MEDS: DOCUSATE 100 MG CAP PO SCH (07:43)
[2019-05-17] MEDS: ENOXAPARIN 40 MG/0.4 ML SYRINGE SQ SCH (07:43)
[2019-05-17] MEDS: FUROSEMIDE 20 MG TAB PO SCH (07:43)
[2019-05-17] MEDS: PANTOPRAZOLE 40 MG TABLET PO SCH (07:43)
[2019-05-17] MEDS: METHIMAZOLE 5 MG TAB PO SCH (07:43)
[2019-05-17 07:45] LABS: African American GFR (CKD) >90 (>60 ml/min/1.73 sqM); Blood Urea Nitrogen 18 mg/dL (7-17); Calcium 8.4 mg/dL (8.4-10.2); Chloride 89 mmol/L (98-107); Glucose 146 mg/dL (74-99); Sodium 138 mmol/L (137-145); Total Bilirubin 0.6 mg/dL (0.2-1.3)
[2019-05-17] MEDS: IPRATROPIUM-ALBUTEROL 3 ML NEB INHALATION SCH ×4 (07:45→19:33)
[2019-05-17 07:52] LABS: Anion Gap 6 mmol/L
[2019-05-17] MEDS: FLUTICASONE 220 MCG INHALER INHALATION SCH ×2 (07:59→19:33)
[2019-05-17 08:08] LABS: Carbon Dioxide 43 mmol/L (22-30)
[2019-05-17 08:09] LABS: ALT 126 U/L (9-52); AST 45 U/L (14-36); Albumin 3.5 g/dL (3.5-5.0)
[2019-05-17 08:10] LABS: Alkaline Phosphatase 61 U/L (38-126)
[2019-05-17] MEDS: ALPRAZolam 0.25 MG TAB PO PRN ×2 (11:20→20:49)
--- NOTE | 2019-05-17 11:30 | PN ---
PROGRESS NOTE She was seen on 05/17/2019. She has been hemodynamically stable. She continues to have shortness of breath. PHYSICAL EXAMINATION: On physical examination, her blood pressure is 150/77, respiratory rate of 15, pulse rate of 74, temperature 98.6, O2 saturation on room air is 96%. HEENT is unremarkable. Chest reveals diminished breath sounds with prolonged exhalation and expiratory wheeze. Cardiovascular system reveal an S1, S2. Abdomen is soft. There is trace pedal edema. White count is 13.9, hemoglobin 12.5, sodium 138, potassium 4, chloride 89, bicarb 43, BUN 18, creatinine 0.27. IMPRESSION AT THIS TIME: 1. Acute on chronic respiratory failure secondary to hypoxia and hypercarbia. 2. Severe asthma with chronic obstructive pulmonary disease with acute exacerbation. 3. Clostridium difficile colitis, recent history of. 4. Atrial fibrillation. 5. Hypothyroidism. Continue IV steroids, Flovent, increase her activity. Have her seen by . Medications were reviewed. She may be a candidate for a biologic as an outpatient. Depending on how she does, we should make further changes to her care. MMODL / IJN: [id number] /
[2019-05-17 11:37] LABS: Glucose,Whole Blood 215 mg/dL (75-99)
--- NOTE | 2019-05-17 14:34 | P.PN ---
Subjective Progress Note Date: 05/17/19 This is a 64-year-old female well-known to my services. Patient presented with complaints of increased shortness of breath. Patient has known advanced COPD and wears home O2 but states that her shortness of breath had been progressively increasing over the past few days with having low-grade temps. Patient reports that she is having increased sputum production and cough. Patient does have a known past medical history of coronary artery disease, cancer, heart failure, COPD, GERD, hypertension, liver disease, mitral valve prolapse, paroxysmal atrial fibrillation which she's not on anticoagulation due to previous GI bleed, C. diff, anxiety and depression. EKG completed showing normal sinus rhythm. Two-view chest x-ray has been ordered. Patient started on Solu-Medrol and breathing treatments. Patient reports improvement already with her shortness of breath. 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 KERRIE Webster has been consulted sputum culture ordered. Patient does have a elevated white blood cell count 20.5. Patient denies any recent steroids. D-dimer 0.22. At this time patient denies chest pain. Patient denies nausea vomiting or diarrhea. Patient denies any urinary burning or frequency On 05/08/2019 patient is alert and oriented 3. Patient started some shortness of breath with wheezing. Patient remains on Solu-Medrol and DuoNeb breathing treatments. Pulmonary services have been consulted. White blood cell improving to 14.7. At This time patient denies chest pain. Patient denies nausea vomiting or diarrhea. Patient denies any urinary burning or frequency On 05/09/2019 patient is alert and oriented 3. Patient reports improvement with her shortness of breath. White blood cell improving to 12.7. Patient remains on IV steroids for COPD exacerbation. Pulmonary services are following. At this time patient denies chest pain. Patient denies nausea vomiting or diarrhea. Patient denies any urinary burning or frequency. On 05/10/2019 patient was seen and examined on the medical floor, she is alert and oriented 3 in no apparent distress, she is still complaining of abdominal discomfort and complaining of shortness of breath with any activity, she is complaining of pain in her right foot, there is bluish discoloration in the right big toe, patient stated that she dropped her oxygen tank on her foot, otherwise there is no complaints there is no fever or chills no headache or dizziness no chest pain no nausea or vomiting no abdominal pain no diarrhea and no urinary symptoms On 05/11/2019 patient was seen and examined on the medical floor she is alert and oriented 3 in no apparent distress she is still complaining of cough and shortness of breath otherwise she denies any complaints there is no fever or chills no headache or dizziness no chest pain no nausea or vomiting no abdominal pain no diarrhea and no urinary symptoms On 05/12/2019 patient's alert and oriented 3. Patient still complaining of cough and shortness breath. Pulmonary and infectious disease are following. Patient denies chest pain. Patient denies nausea vomiting or diarrhea. Patient denies any urinary burning or frequency On 05/13/2019 patient is alert and oriented 3. Patient still having increased wheezing and shortness of breath with ambulation. Sputum culture growing haemophilus influenza. Discussed case with Dr. Valdez per infectious disease per infectious disease likely colonizer no need for antibiotics at this time chest x-ray will be repeated. Patient denies chest pain. Patient denies nausea vomiting or diarrhea. Patient did have normal bowel movement this a.m. On 05/14/2019 patient's alert and oriented 3. Patient does have improvement with wheezing and shortness of breath. Medications adjusted per pulmonary. At this time patient does still complain of shortness breath with activity. Patient denies chest pain. Patient denies nausea vomiting or diarrhea. Denies any urinary burning or frequency On 05/15/2019 patient's alert and oriented 3. Upon auscultation patient sounds improved with shortness of breath and wheezing. Patient reports that she still having some shortness breath with activity. pulmonary services are following. At this time patient denies chest pain. Patient denies nausea vomiting or diarrhea. Patient denies any urinary burning or frequency 05/16/2019 patient still complaining of shortness of breath and cough. But does report some improvement. Pulmonary service is following. Patient does have left leg swelling. Venous Doppler ordered to rule out DVT. Patient has been refusing the Lovenox injections. She also refuses the SCDs. She reports that she gets hematomas in the stomach if she uses the anticoagulation injections. Patient encouraged to ambulate. Patient denies any chest pain, nausea or vomiting, bowel movement changes or urinary symptoms. Liver enzymes are elevated Tylenol discontinued. Patient also is on [place] and Tapazole we'll monitor closely the liver enzymes while taking these medications. On 05/17/2019 patient was seen and examined on the medical floor she is alert and oriented 3 in no apparent distress, she is still complaining of shortness of breath with any activity, she is complaining of cough otherwise she denies any complaints, she still has left lower extremity edema worse than the right, Doppler was done yesterday and was negative for DVT, patient is still refusing subcutaneous heparin due to previous history of abdominal wall hematoma, she was counseled to walk as much as possible, possibility of discharge to home was discussed, patient states she is not ready yet due to shortness of breath, possible discharge to home tomorrow Objective - Vital Signs Vital signs: Vital Signs Temp 98.6 F 05/17/19 07:00 Pulse 84 05/17/19 11:35 Resp 15 05/17/19 07:00 BP 150/77 05/17/19 07:00 Pulse Ox 96 05/17/19 07:00 Intake & Output 05/16/19 05/17/19 05/17/19 18:59 06:59 18:59 Intake Total 500 Balance 500 Intake: Oral 500 Other: Voiding Method Toilet # Voids 2 2 - Exam In general patient is alert and oriented 3 in no apparent distress Head normocephalic and atraumatic Neck supple no JVD no goiter Lungs diminished bilaterally with expiratory wheezing Heart regular rate and rhythm S1-S2, no rub or gallop Abdomen is soft nontender nondistended positive bowel sounds no hepatosplenomegaly Extremities no edema no cyanosis or clubbing Neuro no gross focal neurological deficit - Labs CBC & Chem 7: 05/17/19 06:31 05/17/19 06:31 Labs: Abnormal Lab Results - Last 24 Hours (Table) 05/16/19 05/16/19 05/17/19 Range/Units 16:36 20:17 06:31 WBC 13.9 H (3.8-10.6) k/uL Neutrophils # 12.8 H (1.3-7.7) k/uL Lymphocytes # 0.1 L (1.0-4.8) k/uL Basophils # 0.3 H (0-0.2) k/uL Chloride (98-107) mmol/L Carbon Dioxide (22-30) mmol/L BUN (7-17) mg/dL Creatinine (0.52-1.04) mg/dL Glucose (74-99) mg/dL POC Glucose (mg/dL) 115 H 199 H (75-99) mg/dL AST (14-36) U/L ALT (9-52) U/L Total Protein (6.3-8.2) g/dL 05/17/19 05/17/19 05/17/19 Range/Units 06:31 06:50 11:36 WBC (3.8-10.6) k/uL Neutrophils # (1.3-7.7) k/uL Lymphocytes # (1.0-4.8) k/uL Basophils # (0-0.2) k/uL Chloride 89 L (98-107) mmol/L Carbon Dioxide 43 H* (22-30) mmol/L BUN 18 H (7-17) mg/dL Creatinine 0.27 L (0.52-1.04) mg/dL Glucose 146 H (74-99) mg/dL POC Glucose (mg/dL) 139 H 215 H (75-99) mg/dL AST 45 H (14-36) U/L ALT 126 H (9-52) U/L Total Protein 6.0 L (6.3-8.2) g/dL
[2019-05-17 16:48] LABS: Glucose,Whole Blood 165 mg/dL (75-99)
[2019-05-17 20:27] LABS: Glucose,Whole Blood 182 mg/dL (75-99)
[2019-05-17] MEDS: CHOLECALCIFEROL 1,000 UNIT TAB PO SCH (20:42)
[2019-05-17] MEDS: MONTELUKAST 10 MG TAB PO SCH (20:42)
[2019-05-17] MEDS: DILTIAZEM CD 240 MG CAP.ER.24H PO SCH (20:42)
[2019-05-18] MEDS: IPRATROPIUM-ALBUTEROL 3 ML NEB INHALATION PRN ×3 (00:29→23:04)
[2019-05-18] MEDS: methylPREDNISolone SOD SUCCI 125 MG/2 ML VIAL IV SCH ×5 (00:48→23:17)
[2019-05-18] MEDS: HYDROmorphone 0.5 MG/0.5 ML SYRINGE IVP PRN ×4 (00:49→18:46)
[2019-05-18] MEDS: HYDROcodone/APAP 10-325MG 1 EACH TAB PO PRN ×4 (04:49→23:16)
[2019-05-18] MEDS: ONDANSETRON 4 MG/2 ML VIAL IVP PRN ×2 (04:52→12:21)
[2019-05-18] MEDS: ALPRAZolam 0.25 MG TAB PO PRN ×3 (06:14→23:16)
[2019-05-18 06:41] LABS: Glucose,Whole Blood 150 mg/dL (75-99)
[2019-05-18 07:00] LABS: Basophils # (A) 0.2 k/uL (0-0.2); Basophils % (A) 1 %; Eosinophils % (A) 0 %; HCT 42.5 % (34.0-46.0); HGB 12.5 gm/dL (11.4-16.0); Hypochromasia Moderate; Lymphocytes # (A) 0.1 k/uL (1.0-4.8); Lymphocytes % (A) 1 %; MCH 28.9 pg (25.0-35.0); MCHC 29.4 g/dL (31.0-37.0); MCV 98.2 fL (80.0-100.0); Mean Platelet Volume 7.3; Monocytes # (A) 0.7 k/uL (0-1.0); Monocytes % (A) 4 %; Neutrophils # (A) 14.3 k/uL (1.3-7.7); Neutrophils % (A) 92 %; Platelet Count 253 k/uL (150-450); RBC 4.32 m/uL (3.80-5.40); WBC 15.5 k/uL (3.8-10.6)
[2019-05-18] MEDS: DOCUSATE 100 MG CAP PO SCH (07:18)
[2019-05-18] MEDS: PANTOPRAZOLE 40 MG TABLET PO SCH (07:22)
[2019-05-18] MEDS: METHIMAZOLE 5 MG TAB PO SCH (07:22)
[2019-05-18] MEDS: INSULIN ASPART (NovoLOG) 100 UNIT/ML VIAL SQ SCH ×4 (07:23→20:44)
[2019-05-18] MEDS: ENOXAPARIN 40 MG/0.4 ML SYRINGE SQ SCH (07:23)
[2019-05-18] MEDS: FUROSEMIDE 20 MG TAB PO SCH (07:23)
[2019-05-18 07:32] LABS: ALT 142 U/L (9-52); AST 41 U/L (14-36); African American GFR (CKD) >90 (>60 ml/min/1.73 sqM); Albumin 3.3 g/dL (3.5-5.0); Alkaline Phosphatase 91 U/L (38-126); Blood Urea Nitrogen 23 mg/dL (7-17); Calcium 8.5 mg/dL (8.4-10.2); Chloride 90 mmol/L (98-107); Glucose 156 mg/dL (74-99); Potassium 3.7 mmol/L (3.5-5.1); Sodium 140 mmol/L (137-145); Total Bilirubin 0.4 mg/dL (0.2-1.3); Total Protein 5.5 g/dL (6.3-8.2)
[2019-05-18 07:40] LABS: Anion Gap 7 mmol/L
[2019-05-18 07:51] LABS: Carbon Dioxide 43 mmol/L (22-30)
[2019-05-18] MEDS: FLUTICASONE 220 MCG INHALER INHALATION SCH ×2 (07:53→18:47)
[2019-05-18] MEDS: IPRATROPIUM-ALBUTEROL 3 ML NEB INHALATION SCH ×4 (07:53→18:47)
[2019-05-18 11:40] LABS: Glucose,Whole Blood 186 mg/dL (75-99)
--- NOTE | 2019-05-18 13:06 | PN ---
PROGRESS NOTE DATE OF SERVICE: 05/18/2019 She has been hemodynamically stable. She continues to have shortness of breath. On physical examination her respiratory rate is 16, pulse rate 84, temperature 98.4, blood pressure 159/79, O2 saturation on 2 L by nasal cannula is 96%. HEENT is unremarkable. Chest reveals decreased breath sounds, prolonged expiration. Cardiovascular system reveals an S1, S2. Abdomen is soft. There is no edema. White count is 15.5, hemoglobin of 12.5, sodium 140, potassium 3.7, chloride 90, bicarb 43, BUN 23, creatinine 0.36. IMPRESSION: 1. Acute on chronic respiratory failure. 2. Asthma with chronic obstructive pulmonary disease with acute exacerbation. 3. Medical debility. Continue current medications. Increase activity level. See if she is a candidate for rehab. She may require and benefit from biologic as an outpatient. She was counseled regarding this as well. MMODL / IJN: [id number] /
--- NOTE | 2019-05-18 14:15 | P.PN ---
Subjective Progress Note Date: 05/18/19 This is a 64-year-old female well-known to my services. Patient presented with complaints of increased shortness of breath. Patient has known advanced COPD and wears home O2 but states that her shortness of breath had been progressively increasing over the past few days with having low-grade temps. Patient reports that she is having increased sputum production and cough. Patient does have a known past medical history of coronary artery disease, cancer, heart failure, COPD, GERD, hypertension, liver disease, mitral valve prolapse, paroxysmal atrial fibrillation which she's not on anticoagulation due to previous GI bleed, C. diff, anxiety and depression. EKG completed showing normal sinus rhythm. Two-view chest x-ray has been ordered. Patient started on Solu-Medrol and breathing treatments. Patient reports improvement already with her shortness of breath. 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 KERRIE Webster has been consulted sputum culture ordered. Patient does have a elevated white blood cell count 20.5. Patient denies any recent steroids. D-dimer 0.22. At this time patient denies chest pain. Patient denies nausea vomiting or diarrhea. Patient denies any urinary burning or frequency On 05/08/2019 patient is alert and oriented 3. Patient started some shortness of breath with wheezing. Patient remains on Solu-Medrol and DuoNeb breathing treatments. Pulmonary services have been consulted. White blood cell improving to 14.7. At This time patient denies chest pain. Patient denies nausea vomiting or diarrhea. Patient denies any urinary burning or frequency On 05/09/2019 patient is alert and oriented 3. Patient reports improvement with her shortness of breath. White blood cell improving to 12.7. Patient remains on IV steroids for COPD exacerbation. Pulmonary services are following. At this time patient denies chest pain. Patient denies nausea vomiting or diarrhea. Patient denies any urinary burning or frequency. On 05/10/2019 patient was seen and examined on the medical floor, she is alert and oriented 3 in no apparent distress, she is still complaining of abdominal discomfort and complaining of shortness of breath with any activity, she is complaining of pain in her right foot, there is bluish discoloration in the right big toe, patient stated that she dropped her oxygen tank on her foot, otherwise there is no complaints there is no fever or chills no headache or dizziness no chest pain no nausea or vomiting no abdominal pain no diarrhea and no urinary symptoms On 05/11/2019 patient was seen and examined on the medical floor she is alert and oriented 3 in no apparent distress she is still complaining of cough and shortness of breath otherwise she denies any complaints there is no fever or chills no headache or dizziness no chest pain no nausea or vomiting no abdominal pain no diarrhea and no urinary symptoms On 05/12/2019 patient's alert and oriented 3. Patient still complaining of cough and shortness breath. Pulmonary and infectious disease are following. Patient denies chest pain. Patient denies nausea vomiting or diarrhea. Patient denies any urinary burning or frequency On 05/13/2019 patient is alert and oriented 3. Patient still having increased wheezing and shortness of breath with ambulation. Sputum culture growing haemophilus influenza. Discussed case with Dr. Valdez per infectious disease per infectious disease likely colonizer no need for antibiotics at this time chest x-ray will be repeated. Patient denies chest pain. Patient denies nausea vomiting or diarrhea. Patient did have normal bowel movement this a.m. On 05/14/2019 patient's alert and oriented 3. Patient does have improvement with wheezing and shortness of breath. Medications adjusted per pulmonary. At this time patient does still complain of shortness breath with activity. Patient denies chest pain. Patient denies nausea vomiting or diarrhea. Denies any urinary burning or frequency On 05/15/2019 patient's alert and oriented 3. Upon auscultation patient sounds improved with shortness of breath and wheezing. Patient reports that she still having some shortness breath with activity. pulmonary services are following. At this time patient denies chest pain. Patient denies nausea vomiting or diarrhea. Patient denies any urinary burning or frequency 05/16/2019 patient still complaining of shortness of breath and cough. But does report some improvement. Pulmonary service is following. Patient does have left leg swelling. Venous Doppler ordered to rule out DVT. Patient has been refusing the Lovenox injections. She also refuses the SCDs. She reports that she gets hematomas in the stomach if she uses the anticoagulation injections. Patient encouraged to ambulate. Patient denies any chest pain, nausea or vomiting, bowel movement changes or urinary symptoms. Liver enzymes are elevated Tylenol discontinued. Patient also is on [place] and Tapazole we'll monitor closely the liver enzymes while taking these medications. On 05/17/2019 patient was seen and examined on the medical floor she is alert and oriented 3 in no apparent distress, she is still complaining of shortness of breath with any activity, she is complaining of cough otherwise she denies any complaints, she still has left lower extremity edema worse than the right, Doppler was done yesterday and was negative for DVT, patient is still refusing subcutaneous heparin due to previous history of abdominal wall hematoma, she was counseled to walk as much as possible, possibility of discharge to home was discussed, patient states she is not ready yet due to shortness of breath, possible discharge to home tomorrow. On 05/18/2019 patient is doing well she is still complaining of significant shortness of breath with any activity, otherwise she denies any complaints there is no fever or chills no headache or dizziness no chest pain no nausea or vomiting no abdominal pain no diarrhea and no urinary symptoms Objective - Vital Signs Vital signs: Vital Signs Temp 98.4 F 05/18/19 07:04 Pulse 84 05/18/19 12:27 Resp 16 05/18/19 07:04 BP 159/79 05/18/19 07:04 Pulse Ox 96 05/18/19 07:54 Intake & Output 05/17/19 05/18/19 05/18/19 18:59 06:59 18:59 Other: Voiding Method Toilet # Voids 2 1 - Exam In general patient is alert and oriented 3 in no apparent distress Head normocephalic and atraumatic Neck supple no JVD no goiter Lungs diminished bilaterally with expiratory wheezing Heart regular rate and rhythm S1-S2, no rub or gallop Abdomen is soft nontender nondistended positive bowel sounds no hepatosplenomegaly Extremities no edema no cyanosis or clubbing Neuro no gross focal neurological deficit - Labs CBC & Chem 7: 05/18/19 06:04 05/18/19 06:04 Labs: Abnormal Lab Results - Last 24 Hours (Table) 05/17/19 05/17/19 05/18/19 Range/Units 16:46 20:15 06:04 WBC 15.5 H (3.8-10.6) k/uL MCHC 29.4 L (31.0-37.0) g/dL Neutrophils # 14.3 H (1.3-7.7) k/uL Lymphocytes # 0.1 L (1.0-4.8) k/uL Chloride (98-107) mmol/L Carbon Dioxide (22-30) mmol/L BUN (7-17) mg/dL Creatinine (0.52-1.04) mg/dL Glucose (74-99) mg/dL POC Glucose (mg/dL) 165 H 182 H (75-99) mg/dL AST (14-36) U/L ALT (9-52) U/L Total Protein (6.3-8.2) g/dL Albumin (3.5-5.0) g/dL 05/18/19 05/18/19 05/18/19 Range/Units 06:04 06:39 11:37 WBC (3.8-10.6) k/uL MCHC (31.0-37.0) g/dL Neutrophils # (1.3-7.7) k/uL Lymphocytes # (1.0-4.8) k/uL Chloride 90 L (98-107) mmol/L Carbon Dioxide 43 H* (22-30) mmol/L BUN 23 H (7-17) mg/dL Creatinine 0.36 L (0.52-1.04) mg/dL Glucose 156 H (74-99) mg/dL POC Glucose (mg/dL) 150 H 186 H (75-99) mg/dL AST 41 H (14-36) U/L ALT 142 H (9-52) U/L Total Protein 5.5 L (6.3-8.2) g/dL Albumin 3.3 L (3.5-5.0) g/dL Assessment and Plan Plan: 1. Increased shortness of breath related to his COPD exacerbation. Chest x-ray has been ordered sputum culture ordered pulmonary service is consulted. Patient started on Solu-Medrol and breathing treatments. Chest x-ray completed showing chronic changes without acute pulmonary process. Per pulmonary services continue Solu-Medrol hold off on antibiotics. 2. History of chronic hypoxic respiratory failure. Patient maintained on home O2 3. History of COPD 4. History of C. diff patient has been previously treated. Infectious disease is following 5. History of hyperthyroidism. Patient maintained on Tapazole 6. History of chronic back pain 7. History of liver lesions. Patient was evaluated by GI services to increase admission patient to follow-up outpatient with GI services 8. History of left ovarian lesion. Discussed with PCP patient to follow-up outpatient with [facility] 9. History of paroxysmal atrial fibrillation. Not on anticoagulation due to history of GI bleed 10. Umbilicus hernia. Surgical services have been consulted 11. Back and neck pain. Thoracic and cervical x-rays ordered DVT prophylaxis Lovenox. GI prophylaxis Pepcid PT OT consult
[2019-05-18 16:50] LABS: Glucose,Whole Blood 150 mg/dL (75-99)
[2019-05-18] MEDS: CHOLECALCIFEROL 1,000 UNIT TAB PO SCH (19:45)
[2019-05-18] MEDS: DILTIAZEM CD 240 MG CAP.ER.24H PO SCH (19:45)
[2019-05-18] MEDS: MONTELUKAST 10 MG TAB PO SCH (19:45)
[2019-05-18 20:39] LABS: Glucose,Whole Blood 203 mg/dL (75-99)
[2019-05-19] MEDS: HYDROmorphone 0.5 MG/0.5 ML SYRINGE IVP PRN ×3 (01:01→13:10)
[2019-05-19] MEDS: IPRATROPIUM-ALBUTEROL 3 ML NEB INHALATION PRN (03:22)
[2019-05-19] MEDS: methylPREDNISolone SOD SUCCI 125 MG/2 ML VIAL IV SCH ×2 (05:35→11:35)
[2019-05-19] MEDS: HYDROcodone/APAP 10-325MG 1 EACH TAB PO PRN ×2 (05:35→11:35)
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
[2019-05-19] MEDS: PANTOPRAZOLE 40 MG TABLET PO SCH (07:06)
[2019-05-19] MEDS: INSULIN ASPART (NovoLOG) 100 UNIT/ML VIAL SQ SCH ×2 (07:06→11:36)
[2019-05-19] MEDS: METHIMAZOLE 5 MG TAB PO SCH (07:07)
[2019-05-19] MEDS: DOCUSATE 100 MG CAP PO SCH (07:07)
[2019-05-19] MEDS: ENOXAPARIN 40 MG/0.4 ML SYRINGE SQ SCH (07:07)
[2019-05-19] MEDS: FUROSEMIDE 20 MG TAB PO SCH (07:07)
[2019-05-19 07:12] LABS: Glucose,Whole Blood 153 mg/dL (75-99)
[2019-05-19] MEDS: ONDANSETRON 4 MG/2 ML VIAL IVP PRN (07:18)
[2019-05-19] MEDS: ALPRAZolam 0.25 MG TAB PO PRN ×2 (07:18→15:11)
[2019-05-19] MEDS: FLUTICASONE 220 MCG INHALER INHALATION SCH (07:32)
[2019-05-19] MEDS: IPRATROPIUM-ALBUTEROL 3 ML NEB INHALATION SCH ×3 (07:32→15:23)
[2019-05-19 07:55] VITALS: TEMP 98.7
[2019-05-19 10:12] LABS: Basophils # (A) 0.3 k/uL (0-0.2); Basophils % (A) 2 %; Eosinophils % (A) 0 %; HCT 42.5 % (34.0-46.0); HGB 12.7 gm/dL (11.4-16.0); Hypochromasia Moderate; Lymphocytes % (A) 0 %; MCH 29.3 pg (25.0-35.0); MCHC 29.8 g/dL (31.0-37.0); MCV 98.3 fL (80.0-100.0); Monocytes # (A) 0.4 k/uL (0-1.0); Monocytes % (A) 3 %; Neutrophils # (A) 15.5 k/uL (1.3-7.7); Neutrophils % (A) 95 %; Platelet Count 222 k/uL (150-450); RBC 4.32 m/uL (3.80-5.40); RDW 14.8 % (11.5-15.5); WBC 16.4 k/uL (3.8-10.6)
[2019-05-19 10:21] LABS: ALT 193 U/L (9-52); AST 51 U/L (14-36); African American GFR (CKD) >90 (>60 ml/min/1.73 sqM); Albumin 3.5 g/dL (3.5-5.0); Alkaline Phosphatase 105 U/L (38-126); Blood Urea Nitrogen 22 mg/dL (7-17); Calcium 8.2 mg/dL (8.4-10.2); Chloride 89 mmol/L (98-107); Glucose 211 mg/dL (74-99); Sodium 138 mmol/L (137-145); Total Bilirubin 0.5 mg/dL (0.2-1.3); Total Protein 5.9 g/dL (6.3-8.2)
[2019-05-19 10:28] LABS: Anion Gap 7 mmol/L
[2019-05-19 10:47] LABS: Carbon Dioxide 42 mmol/L (22-30)
[2019-05-19 11:20] LABS: Glucose,Whole Blood 241 mg/dL (75-99)
[2019-05-19] MEDS ORDERED: Potassium Replacement Protocol 1 EACH MISC MISCELLANE PRN (13:07)
[2019-05-19 13:14] LABS: Glucose,Whole Blood 233 mg/dL (75-99)
[2019-05-19] MEDS: POTASSIUM CHLORIDE ER 20 MEQ TAB.ER PO SCH ×2 (13:48→15:10)
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
[2019-05-19 13:51] VITALS: BP 152/74; RESP 20
[2019-05-19 14:48] VITALS: BMI 25.0
[2019-05-19 15:37] VITALS: PULSE 92
== END 2019-05-19 16:25 | disposition home or self-care (01) | DRG 190 ==
LOC: EC 12:57 → 4SSUR 15:07
PROVIDERS: ADMIT Internal Medicine; ATTEND Internal Medicine
DX: J43.9 Emphysema, unspecified (principal); J96.21 Acute and chronic respiratory failure with hypoxia; J96.22 Acute and chronic respiratory failure with hypercapnia; J45.901 Unspecified asthma with (acute) exacerbation; I11.0 Hypertensive heart disease with heart failure; I50.9 Heart failure, unspecified; I48.0 Paroxysmal atrial fibrillation; M41.9 Scoliosis, unspecified; E05.90 Thyrotoxicosis, unspecified without thyrotoxic crisis or storm; I25.10 Atherosclerotic heart disease of native coronary artery without angina pectoris; I34.1 Nonrheumatic mitral (valve) prolapse; K21.9 Gastro-esophageal reflux disease without esophagitis; G89.29 Other chronic pain; M54.9 Dorsalgia, unspecified; M54.2 Cervicalgia; M19.90 Unspecified osteoarthritis, unspecified site; I25.2 Old myocardial infarction; M81.0 Age-related osteoporosis without current pathological fracture; B19.20 Unspecified viral hepatitis C without hepatic coma; F32.9 Major depressive disorder, single episode, unspecified; F43.10 Post-traumatic stress disorder, unspecified; E87.6 Hypokalemia; K42.9 Umbilical hernia without obstruction or gangrene; K58.9 Irritable bowel syndrome, unspecified; K76.9 Liver disease, unspecified; S99.921A Unspecified injury of right foot, initial encounter; R91.8 Other nonspecific abnormal finding of lung field; Z99.81 Dependence on supplemental oxygen; Z79.51 Long term (current) use of inhaled steroids; Z79.899 Other long term (current) drug therapy; Z86.19 Personal history of other infectious and parasitic diseases; Z85.41 Personal history of malignant neoplasm of cervix uteri; Z98.891 History of uterine scar from previous surgery; Z87.440 Personal history of urinary (tract) infections; Z87.828 Personal history of other (healed) physical injury and trauma; Z90.49 Acquired absence of other specified parts of digestive tract; Z87.19 Personal history of other diseases of the digestive system; Z98.49 Cataract extraction status, unspecified eye; Z88.1 Allergy status to other antibiotic agents; Z88.2 Allergy status to sulfonamides; Z88.8 Allergy status to other drugs, medicaments and biological substances; Z87.891 Personal history of nicotine dependence; Z87.81 Personal history of (healed) traumatic fracture; Z87.42 Personal history of other diseases of the female genital tract; Z82.49 Family history of ischemic heart disease and other diseases of the circulatory system; Z80.1 Family history of malignant neoplasm of trachea, bronchus and lung; Z80.3 Family history of malignant neoplasm of breast; Z80.8 Family history of malignant neoplasm of other organs or systems; Z80.7 Family history of other malignant neoplasms of lymphoid, hematopoietic and related tissues; Z80.0 Family history of malignant neoplasm of digestive organs; Z83.6 Family history of other diseases of the respiratory system; Z81.1 Family history of alcohol abuse and dependence; W20.8XXA Other cause of strike by thrown, projected or falling object, initial encounter
CPT/HCPCS: 36415; 71046; 72050; 72072; 74177; 80053; 82550; 83735; 83880; 84145; 84484; 85025; 85379; 85610; 85730; 87040; 87070; 87205; 94640; 94760; 96361; 96365; 96375; 99291

== ENCOUNTER 2019-05-22 17:26 | Inpatient (IN) | payer OTHER ==
[2019-05-22] MEDS ORDERED: HYDROmorphone 0.5 MG/0.5 ML SYRINGE IVP STA ×3 (18:17→21:47)
[2019-05-22 19:12] LABS: Basophils # (A) 0.2 k/uL (0-0.2); Basophils % (A) 2 %; Eosinophils % (A) 0 %; HCT 43.7 % (34.0-46.0); HGB 13.1 gm/dL (11.4-16.0); Hypochromasia Slight; Lymphocytes # (A) 0.3 k/uL (1.0-4.8); Lymphocytes % (A) 2 %; MCH 28.7 pg (25.0-35.0); MCHC 30.1 g/dL (31.0-37.0); MCV 95.4 fL (80.0-100.0); Mean Platelet Volume 6.6; Monocytes # (A) 0.4 k/uL (0-1.0); Monocytes % (A) 3 %; Neutrophils # (A) 13.8 k/uL (1.3-7.7); Neutrophils % (A) 93 %; Platelet Count 190 k/uL (150-450); RBC 4.58 m/uL (3.80-5.40); RDW 15.3 % (11.5-15.5); WBC 14.8 k/uL (3.8-10.6)
[2019-05-22] MEDS ORDERED: IPRATROPIUM-ALBUTEROL 3 ML NEB INHALATION STA (19:35)
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
[2019-05-22 19:56] LABS: Carbon Dioxide 43 mmol/L (22-30)
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
[2019-05-22 20:40] LABS: ALT 319 U/L (9-52); AST 80 U/L (14-36); African American GFR (CKD) >90 (>60 ml/min/1.73 sqM); Albumin 3.6 g/dL (3.5-5.0); Alkaline Phosphatase 114 U/L (38-126); Anion Gap 8 mmol/L; Blood Urea Nitrogen 16 mg/dL (7-17); Calcium 8.6 mg/dL (8.4-10.2); Chloride 88 mmol/L (98-107); Glucose 168 mg/dL (74-99); Potassium 4.2 mmol/L (3.5-5.1); Sodium 136 mmol/L (137-145); Total Bilirubin 0.5 mg/dL (0.2-1.3); Total Protein 5.9 g/dL (6.3-8.2)
--- NOTE | 2019-05-22 20:44 | XR ---
EXAMINATION TYPE: XR hand complete RT DATE OF EXAM: 05/22/2019 COMPARISON: NONE HISTORY: Pain TECHNIQUE: 3 views FINDINGS: There is acute nondisplaced transverse fracture distal radial metaphysis. The carpal bones are intact. Metacarpals are intact. Joint spaces of the hand are fairly normal. IMPRESSION: Acute nondisplaced fracture distal radius.
--- NOTE | 2019-05-22 20:44 | XR ---
EXAMINATION TYPE: XR forearm RT DATE OF EXAM: 05/22/2019 COMPARISON: NONE HISTORY: Pain TECHNIQUE: 2 views FINDINGS: There is nondisplaced transverse fracture distal radial metaphysis. Elbow joint appears int act. Ulna appears intact. IMPRESSION: Acute nondisplaced fracture distal radius.
--- NOTE | 2019-05-22 20:45 | XR ---
EXAMINATION TYPE: XR shoulder complete RT DATE OF EXAM: 05/22/2019 COMPARISON: NONE HISTORY: Pain TECHNIQUE: 3 views FINDINGS: The glenohumeral joint is intact. I see no fracture nor dislocation. IMPRESSION: Negative right shoulder exam. No fracture seen.
--- NOTE | 2019-05-22 20:46 | XR ---
EXAMINATION TYPE: XR humerus RT DATE OF EXAM: 05/22/2019 COMPARISON: NONE HISTORY: Pain TECHNIQUE: 2 views FINDINGS: Elbow joint and shoulder joint appear anatomic. I see no fracture nor dislocation. IMPRESSION: No acute abnormality of the right humerus.
[2019-05-22 21:38] LABS: VBG PH 7.42 (7.31-7.41)
[2019-05-22] MEDS ORDERED: ACETAMINOPHEN TAB 325 MG TAB PO PRN (22:54)
[2019-05-22] MEDS ORDERED: IBUPROFEN 400 MG TAB PO PRN (22:54)
[2019-05-22] MEDS ORDERED: NALOXONE 0.4 MG/ML 1 ML VIAL IV PRN (22:54)
[2019-05-22] MEDS: SODIUM CHLORIDE 0.9% 1,000 ML IV SCH (23:43)
[2019-05-22] MEDS: oxyCODONE-APAP 5-325MG 1 EACH TAB PO PRN (23:44)
[2019-05-23] MEDS: MORPHINE SULFATE 4 MG/ML SYRINGE IV PRN ×5 (02:09→20:17)
[2019-05-23] MEDS: IPRATROPIUM-ALBUTEROL 3 ML NEB INHALATION PRN ×7 (02:11→23:24)
[2019-05-23] MEDS: oxyCODONE-APAP 5-325MG 1 EACH TAB PO PRN (04:14)
[2019-05-23] MEDS ORDERED: ALBUTEROL NEBULIZED 2.5 MG/3 ML INHALATION PRN (08:21)
[2019-05-23] MEDS: POTASSIUM CHLORIDE ER 10 MEQ TAB.ER.PRT PO SCH (09:08)
[2019-05-23] MEDS: HYDROcodone/APAP 10-325MG 1 EACH TAB PO PRN ×3 (09:09→23:13)
[2019-05-23] MEDS: FUROSEMIDE 20 MG TAB PO SCH (09:09)
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
[2019-05-23] MEDS: DOCUSATE 100 MG CAP PO SCH ×2 (11:14→20:17)
[2019-05-23] MEDS: PANTOPRAZOLE 40 MG TABLET PO SCH ×2 (11:14→16:59)
[2019-05-23] MEDS: ONDANSETRON 4 MG/2 ML VIAL IVP PRN (11:19)
[2019-05-23] MEDS: METHIMAZOLE 5 MG TAB PO SCH (12:03)
[2019-05-23] MEDS ORDERED: INSULIN ASPART (NovoLOG) 100 UNIT/ML VIAL SQ SCH (12:30)
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
[2019-05-23] MEDS: methylPREDNISolone SOD SUCCI 125 MG/2 ML VIAL IV SCH (16:59)
[2019-05-23] MEDS: SODIUM CHLORIDE 0.9% 1,000 ML IV SCH (19:11)
[2019-05-23] MEDS: FLUTICASONE 110 MCG INHALER INHALATION SCH (19:24)
[2019-05-23] MEDS: CHOLECALCIFEROL 1,000 UNIT TAB PO SCH (20:17)
[2019-05-23] MEDS: MONTELUKAST 10 MG TAB PO SCH (20:17)
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
[2019-05-23 20:27] LABS: Glucose,Whole Blood 212 mg/dL (75-99)
[2019-05-23] MEDS: PRAMIPEXOLE 0.5 MG TAB PO SCH (20:40)
[2019-05-23] MEDS: INSULIN ASPART (NovoLOG) 100 UNIT/ML VIAL SQ SCH (20:42)
[2019-05-23] MEDS: DILTIAZEM CD 240 MG CAP.ER.24H PO SCH (20:45)
[2019-05-24] MEDS: methylPREDNISolone SOD SUCCI 125 MG/2 ML VIAL IV SCH ×4 (01:04→17:12)
[2019-05-24] MEDS: SODIUM CHLORIDE 0.9% 1,000 ML IV SCH ×2 (02:13→15:19)
[2019-05-24] MEDS: IPRATROPIUM-ALBUTEROL 3 ML NEB INHALATION PRN ×6 (03:06→23:20)
[2019-05-24] MEDS: MORPHINE SULFATE 4 MG/ML SYRINGE IV PRN ×5 (03:44→22:01)
[2019-05-24] MEDS: HYDROcodone/APAP 10-325MG 1 EACH TAB PO PRN ×4 (06:27→23:10)
[2019-05-24 07:19] LABS: Basophils % (A) 0 %; Eosinophils % (A) 0 %; HCT 40.4 % (34.0-46.0); HGB 12.6 gm/dL (11.4-16.0); Hypochromasia Moderate; Lymphocytes # (A) 0.4 k/uL (1.0-4.8); Lymphocytes % (A) 3 %; MCH 29.7 pg (25.0-35.0); MCHC 31.1 g/dL (31.0-37.0); MCV 95.4 fL (80.0-100.0); Mean Platelet Volume 6.2; Monocytes # (A) 0.2 k/uL (0-1.0); Monocytes % (A) 2 %; Neutrophils # (A) 9.5 k/uL (1.3-7.7); Neutrophils % (A) 94 %; Platelet Count 170 k/uL (150-450); RBC 4.23 m/uL (3.80-5.40); WBC 10.1 k/uL (3.8-10.6)
[2019-05-24 07:29] LABS: Prothrombin Time 10.7 sec (9.0-12.0)
[2019-05-24 07:34] LABS: ALT 256 U/L (9-52); AST 62 U/L (14-36); African American GFR (CKD) >90 (>60 ml/min/1.73 sqM); Albumin 3.2 g/dL (3.5-5.0); Alkaline Phosphatase 78 U/L (38-126); Anion Gap 3 mmol/L; Blood Urea Nitrogen 13 mg/dL (7-17); Calcium 8.4 mg/dL (8.4-10.2); Carbon Dioxide 39 mmol/L (22-30); Chloride 93 mmol/L (98-107); Glucose 131 mg/dL (74-99); Potassium 4.3 mmol/L (3.5-5.1); Sodium 135 mmol/L (137-145); Total Bilirubin 0.7 mg/dL (0.2-1.3); Total Protein 5.5 g/dL (6.3-8.2)
[2019-05-24 07:45] LABS: Glucose,Whole Blood 120 mg/dL (75-99)
[2019-05-24] MEDS: FLUTICASONE 110 MCG INHALER INHALATION SCH ×2 (08:06→19:41)
[2019-05-24] MEDS: INSULIN ASPART (NovoLOG) 100 UNIT/ML VIAL SQ SCH ×4 (08:06→20:14)
[2019-05-24] MEDS: POTASSIUM CHLORIDE ER 10 MEQ TAB.ER.PRT PO SCH (08:42)
[2019-05-24] MEDS: DOCUSATE 100 MG CAP PO SCH ×2 (08:42→20:13)
[2019-05-24] MEDS: FUROSEMIDE 20 MG TAB PO SCH (08:42)
[2019-05-24] MEDS: PANTOPRAZOLE 40 MG TABLET PO SCH ×2 (08:42→17:13)
[2019-05-24] MEDS: ENOXAPARIN 40 MG/0.4 ML SYRINGE SQ SCH ×2 (08:42→08:45)
[2019-05-24] MEDS: METHIMAZOLE 5 MG TAB PO SCH (08:42)
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
[2019-05-24] MEDS ORDERED: predniSONE 20 MG TAB PO SCH (09:00)
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
--- NOTE | 2019-05-24 11:42 | XR ---
EXAMINATION TYPE: XR lumbar spine 2 or 3V , 3 VIEWS DATE OF EXAM ORDERED: 05/24/2019 HISTORY: low back pain. COMPARISON: Previous study of 04/16/2018. FINDINGS: There is a moderately severe levoscoliosis present. Mild wedging of the T2 vertebral body. This is present previously IMPRESSION: NO DEFINITE ACUTE BONY ABNORMALITY
[2019-05-24 11:57] LABS: Glucose,Whole Blood 158 mg/dL (75-99)
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
[2019-05-24] MEDS: ONDANSETRON 4 MG/2 ML VIAL IVP PRN (15:15)
[2019-05-24] MEDS: ALPRAZolam 0.25 MG TAB PO PRN (15:15)
[2019-05-24 17:07] LABS: Glucose,Whole Blood 170 mg/dL (75-99)
[2019-05-24 20:01] LABS: Glucose,Whole Blood 187 mg/dL (75-99)
[2019-05-24] MEDS: CHOLECALCIFEROL 1,000 UNIT TAB PO SCH (20:13)
[2019-05-24] MEDS: MONTELUKAST 10 MG TAB PO SCH (20:13)
[2019-05-24] MEDS: PRAMIPEXOLE 0.5 MG TAB PO SCH (20:13)
[2019-05-24] MEDS: DILTIAZEM CD 240 MG CAP.ER.24H PO SCH (20:13)
[2019-05-25] MEDS: methylPREDNISolone SOD SUCCI 125 MG/2 ML VIAL IV SCH ×4 (01:08→17:29)
[2019-05-25] MEDS: ALPRAZolam 0.25 MG TAB PO PRN ×2 (01:08→16:18)
[2019-05-25] MEDS: IPRATROPIUM-ALBUTEROL 3 ML NEB INHALATION PRN ×5 (03:25→19:49)
[2019-05-25] MEDS: MORPHINE SULFATE 4 MG/ML SYRINGE IV PRN ×3 (03:43→10:58)
[2019-05-25] MEDS: ONDANSETRON 4 MG/2 ML VIAL IVP PRN ×2 (03:48→16:18)
[2019-05-25] MEDS: SODIUM CHLORIDE 0.9% 1,000 ML IV SCH (03:50)
[2019-05-25] MEDS: HYDROcodone/APAP 10-325MG 1 EACH TAB PO PRN ×4 (05:09→22:29)
[2019-05-25 06:59] LABS: Basophils # (A) 0.1 k/uL (0-0.2); Basophils % (A) 0 %; Eosinophils % (A) 0 %; HGB 11.3 gm/dL (11.4-16.0); Hypochromasia Moderate; Lymphocytes # (A) 0.3 k/uL (1.0-4.8); Lymphocytes % (A) 2 %; MCHC 31.4 g/dL (31.0-37.0); MCV 95.8 fL (80.0-100.0); Mean Platelet Volume 6.4; Monocytes # (A) 0.4 k/uL (0-1.0); Monocytes % (A) 3 %; Neutrophils % (A) 94 %; Platelet Count 146 k/uL (150-450); RBC 3.76 m/uL (3.80-5.40); RDW 15.2 % (11.5-15.5); WBC 13.9 k/uL (3.8-10.6)
[2019-05-25 07:10] LABS: ALT 194 U/L (9-52); AST 37 U/L (14-36); African American GFR (CKD) >90 (>60 ml/min/1.73 sqM); Albumin 3.1 g/dL (3.5-5.0); Alkaline Phosphatase 82 U/L (38-126); Anion Gap 4 mmol/L; Blood Urea Nitrogen 14 mg/dL (7-17); Calcium 8.3 mg/dL (8.4-10.2); Carbon Dioxide 36 mmol/L (22-30); Chloride 96 mmol/L (98-107); Glucose 193 mg/dL (74-99); Potassium 4.4 mmol/L (3.5-5.1); Sodium 136 mmol/L (137-145); Total Bilirubin 0.4 mg/dL (0.2-1.3); Total Protein 5.2 g/dL (6.3-8.2)
[2019-05-25 07:12] LABS: Glucose,Whole Blood 163 mg/dL (75-99)
[2019-05-25] MEDS: ENOXAPARIN 40 MG/0.4 ML SYRINGE SQ SCH (07:43)
[2019-05-25] MEDS: METHIMAZOLE 5 MG TAB PO SCH (07:43)
[2019-05-25] MEDS: INSULIN ASPART (NovoLOG) 100 UNIT/ML VIAL SQ SCH ×4 (07:43→20:30)
[2019-05-25] MEDS: PANTOPRAZOLE 40 MG TABLET PO SCH ×2 (07:43→17:29)
[2019-05-25] MEDS: DOCUSATE 100 MG CAP PO SCH ×2 (07:43→20:29)
[2019-05-25] MEDS: POTASSIUM CHLORIDE ER 10 MEQ TAB.ER.PRT PO SCH (07:43)
[2019-05-25] MEDS: FUROSEMIDE 20 MG TAB PO SCH (07:43)
[2019-05-25] MEDS: FLUTICASONE 110 MCG INHALER INHALATION SCH ×2 (08:29→19:48)
--- NOTE | 2019-05-25 11:28 | CT ---
EXAMINATION TYPE: CT chest wo con DATE OF EXAM: 05/25/2019 COMPARISON: Previous study dated 05/22/2019 HISTORY: Left sided rib pain with shortness of breath CT DLP: 243.3 mGycm. Automated Exposure Control for Dose Reduction was Utilized. TECHNIQUE: CT scan of the thorax is performed without IV contrast. FINDINGS: There is diffuse emphysematous change throughout both lungs. This is worse in the upper lob es bilaterally. There is a tiny, stable 4.2 mm noncalcified nodule in the lateral segment of the left upper lobe, best seen on image 10. There is at least one other tiny lesion which is also stable. It is also not definitely calcified. No displaced rib fractures are seen. IMPRESSION: 1. I DO NOT IDENTIFY A RIB FRACTURE ON THIS EXAMINATION. 2. DIFFUSE EMPHYSEMATOUS CHANGE. 3. MULTIPLE, TINY LEFT-SIDED PULMONARY NODULES. THE STABILITY OF THESE LESIONS SUGGESTS THEY MAY BE G RANULOMATOUS IN NATURE.
[2019-05-25 11:52] LABS: Glucose,Whole Blood 151 mg/dL (75-99)
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
[2019-05-25] MEDS: HYDROmorphone 1 MG/ML 1 ML SYRINGE IVP PRN ×3 (15:04→21:20)
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
[2019-05-25 17:14] LABS: Glucose,Whole Blood 171 mg/dL (75-99)
[2019-05-25 20:04] LABS: Glucose,Whole Blood 192 mg/dL (75-99)
[2019-05-25] MEDS: PRAMIPEXOLE 0.5 MG TAB PO SCH (20:29)
[2019-05-25] MEDS: DILTIAZEM CD 240 MG CAP.ER.24H PO SCH (20:29)
[2019-05-25] MEDS: MONTELUKAST 10 MG TAB PO SCH (20:29)
[2019-05-25] MEDS: CHOLECALCIFEROL 1,000 UNIT TAB PO SCH (20:29)
[2019-05-26] MEDS: IPRATROPIUM-ALBUTEROL 3 ML NEB INHALATION PRN ×6 (01:00→20:26)
[2019-05-26] MEDS: HYDROmorphone 1 MG/ML 1 ML SYRINGE IVP PRN ×7 (01:23→20:46)
[2019-05-26] MEDS: methylPREDNISolone SOD SUCCI 125 MG/2 ML VIAL IV SCH ×5 (01:24→23:58)
[2019-05-26] MEDS: ALPRAZolam 0.25 MG TAB PO PRN ×2 (01:24→19:49)
[2019-05-26] MEDS: HYDROcodone/APAP 10-325MG 1 EACH TAB PO PRN ×4 (04:32→19:49)
[2019-05-26 07:16] LABS: Glucose,Whole Blood 140 mg/dL (75-99)
[2019-05-26 07:17] LABS: Basophils % (A) 0 %; Eosinophils % (A) 0 %; HCT 37.9 % (34.0-46.0); HGB 11.8 gm/dL (11.4-16.0); Hypochromasia Slight; Lymphocytes # (A) 0.2 k/uL (1.0-4.8); Lymphocytes % (A) 1 %; MCH 29.5 pg (25.0-35.0); MCHC 31.1 g/dL (31.0-37.0); MCV 94.7 fL (80.0-100.0); Mean Platelet Volume 6.5; Monocytes # (A) 0.4 k/uL (0-1.0); Monocytes % (A) 3 %; Neutrophils # (A) 14.9 k/uL (1.3-7.7); Neutrophils % (A) 95 %; Platelet Count 168 k/uL (150-450); RBC 4.01 m/uL (3.80-5.40); RDW 15.3 % (11.5-15.5); WBC 15.7 k/uL (3.8-10.6)
[2019-05-26 07:24] LABS: ALT 198 U/L (9-52); AST 35 U/L (14-36); African American GFR (CKD) >90 (>60 ml/min/1.73 sqM); Albumin 3.7 g/dL (3.5-5.0); Alkaline Phosphatase 95 U/L (38-126); Blood Urea Nitrogen 16 mg/dL (7-17); Calcium 8.9 mg/dL (8.4-10.2); Chloride 92 mmol/L (98-107); Glucose 160 mg/dL (74-99); Sodium 137 mmol/L (137-145); Total Bilirubin 0.6 mg/dL (0.2-1.3)
[2019-05-26] MEDS: FLUTICASONE 110 MCG INHALER INHALATION SCH ×3 (07:30→20:31)
[2019-05-26 07:31] LABS: Anion Gap 4 mmol/L
[2019-05-26 07:40] LABS: Carbon Dioxide 41 mmol/L (22-30)
[2019-05-26] MEDS: PANTOPRAZOLE 40 MG TABLET PO SCH ×2 (08:19→18:06)
[2019-05-26] MEDS: FUROSEMIDE 20 MG TAB PO SCH (08:20)
[2019-05-26] MEDS: ENOXAPARIN 40 MG/0.4 ML SYRINGE SQ SCH (08:21)
[2019-05-26] MEDS: DOCUSATE 100 MG CAP PO SCH ×2 (08:21→19:50)
[2019-05-26] MEDS: POTASSIUM CHLORIDE ER 10 MEQ TAB.ER.PRT PO SCH (08:22)
[2019-05-26] MEDS: INSULIN ASPART (NovoLOG) 100 UNIT/ML VIAL SQ SCH ×4 (08:23→20:41)
[2019-05-26] MEDS: METHIMAZOLE 5 MG TAB PO SCH (08:33)
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
[2019-05-26] MEDS: ONDANSETRON 4 MG/2 ML VIAL IVP PRN (11:32)
[2019-05-26 11:52] LABS: Glucose,Whole Blood 180 mg/dL (75-99)
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
[2019-05-26 17:27] LABS: Glucose,Whole Blood 205 mg/dL (75-99)
[2019-05-26] MEDS: MONTELUKAST 10 MG TAB PO SCH (19:49)
[2019-05-26] MEDS: CHOLECALCIFEROL 1,000 UNIT TAB PO SCH (19:49)
[2019-05-26 20:00] LABS: Glucose,Whole Blood 171 mg/dL (75-99)
[2019-05-26] MEDS: DILTIAZEM CD 240 MG CAP.ER.24H PO SCH (20:41)
[2019-05-26] MEDS: PRAMIPEXOLE 0.5 MG TAB PO SCH (20:43)
[2019-05-27] MEDS: IPRATROPIUM-ALBUTEROL 3 ML NEB INHALATION PRN ×6 (01:01→20:07)
[2019-05-27] MEDS: HYDROmorphone 1 MG/ML 1 ML SYRINGE IVP PRN ×7 (01:24→22:18)
[2019-05-27] MEDS: HYDROcodone/APAP 10-325MG 1 EACH TAB PO PRN ×3 (02:19→18:00)
[2019-05-27] MEDS: ALPRAZolam 0.25 MG TAB PO PRN ×3 (04:29→22:19)
[2019-05-27] MEDS: methylPREDNISolone SOD SUCCI 125 MG/2 ML VIAL IV SCH ×3 (05:39→17:55)
[2019-05-27 07:31] LABS: Glucose,Whole Blood 133 mg/dL (75-99)
[2019-05-27 07:34] LABS: Basophils % (A) 0 %; Eosinophils % (A) 0 %; HCT 36.8 % (34.0-46.0); HGB 11.5 gm/dL (11.4-16.0); Hypochromasia Slight; Lymphocytes # (A) 0.2 k/uL (1.0-4.8); Lymphocytes % (A) 2 %; MCH 29.6 pg (25.0-35.0); MCHC 31.4 g/dL (31.0-37.0); MCV 94.3 fL (80.0-100.0); Mean Platelet Volume 6.2; Monocytes # (A) 0.4 k/uL (0-1.0); Monocytes % (A) 3 %; Neutrophils # (A) 11.2 k/uL (1.3-7.7); Neutrophils % (A) 94 %; Platelet Count 135 k/uL (150-450); RDW 15.2 % (11.5-15.5)
[2019-05-27 07:46] LABS: ALT 176 U/L (9-52); AST 33 U/L (14-36); African American GFR (CKD) >90 (>60 ml/min/1.73 sqM); Albumin 3.4 g/dL (3.5-5.0); Alkaline Phosphatase 88 U/L (38-126); Blood Urea Nitrogen 15 mg/dL (7-17); Calcium 8.5 mg/dL (8.4-10.2); Chloride 91 mmol/L (98-107); Glucose 144 mg/dL (74-99); Sodium 136 mmol/L (137-145); Total Bilirubin 0.7 mg/dL (0.2-1.3); Total Protein 5.7 g/dL (6.3-8.2)
[2019-05-27 07:53] LABS: Anion Gap 2 mmol/L
[2019-05-27] MEDS: INSULIN ASPART (NovoLOG) 100 UNIT/ML VIAL SQ SCH ×4 (07:56→20:01)
[2019-05-27] MEDS: PANTOPRAZOLE 40 MG TABLET PO SCH ×2 (07:57→17:55)
[2019-05-27] MEDS: METHIMAZOLE 5 MG TAB PO SCH (07:57)
[2019-05-27] MEDS: DOCUSATE 100 MG CAP PO SCH ×2 (07:57→19:46)
[2019-05-27] MEDS: POTASSIUM CHLORIDE ER 10 MEQ TAB.ER.PRT PO SCH (07:58)
[2019-05-27] MEDS: FUROSEMIDE 20 MG TAB PO SCH (07:58)
[2019-05-27] MEDS: ENOXAPARIN 40 MG/0.4 ML SYRINGE SQ SCH (07:58)
[2019-05-27 08:00] LABS: Carbon Dioxide 43 mmol/L (22-30)
[2019-05-27] MEDS: FLUTICASONE 110 MCG INHALER INHALATION SCH ×2 (09:12→20:08)
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
[2019-05-27 11:19] LABS: Glucose,Whole Blood 121 mg/dL (75-99)
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
[2019-05-27 17:10] LABS: Glucose,Whole Blood 245 mg/dL (75-99)
[2019-05-27] MEDS: PRAMIPEXOLE 0.5 MG TAB PO SCH (19:45)
[2019-05-27] MEDS: MONTELUKAST 10 MG TAB PO SCH (19:45)
[2019-05-27] MEDS: DILTIAZEM CD 240 MG CAP.ER.24H PO SCH (19:46)
[2019-05-27] MEDS: CHOLECALCIFEROL 1,000 UNIT TAB PO SCH (19:46)
[2019-05-27 19:56] LABS: Glucose,Whole Blood 211 mg/dL (75-99)
[2019-05-27] MEDS ORDERED: HYDROcodone/APAP 10-325MG 1 EACH TAB ONE (23:30)
[2019-05-27] MEDS ORDERED: IPRATROPIUM-ALBUTEROL 3 ML NEB ONE (23:30)
[2019-05-28] MEDS ORDERED: methylPREDNISolone SOD SUCCI 125 MG/2 ML VIAL ONE ×2 (05:35)
[2019-05-28] MEDS ORDERED: ALPRAZolam 0.25 MG TAB ONE (05:35)
[2019-05-28] MEDS ORDERED: HYDROmorphone 1 MG/ML 1 ML SYRINGE ONE (05:35)
[2019-05-28] MEDS ORDERED: HYDROcodone/APAP 10-325MG 1 EACH TAB ONE (05:35)
[2019-05-28] MEDS ORDERED: IPRATROPIUM-ALBUTEROL 3 ML NEB ONE (05:35)
[2019-05-28 07:19] LABS: Glucose,Whole Blood 166 mg/dL (75-99)
[2019-05-28] MEDS: methylPREDNISolone SOD SUCCI 125 MG/2 ML VIAL IV SCH ×2 (07:30→12:23)
[2019-05-28 07:58] LABS: Basophils % (A) 0 %; Eosinophils % (A) 0 %; HCT 39.3 % (34.0-46.0); HGB 11.9 gm/dL (11.4-16.0); Hypochromasia Slight; Lymphocytes # (A) 0.2 k/uL (1.0-4.8); Lymphocytes % (A) 2 %; MCH 28.9 pg (25.0-35.0); MCHC 30.2 g/dL (31.0-37.0); MCV 95.6 fL (80.0-100.0); Mean Platelet Volume 7.1; Monocytes # (A) 0.4 k/uL (0-1.0); Monocytes % (A) 4 %; Neutrophils # (A) 9.5 k/uL (1.3-7.7); Neutrophils % (A) 94 %; Platelet Count 121 k/uL (150-450); RBC 4.11 m/uL (3.80-5.40); RDW 15.5 % (11.5-15.5); WBC 10.1 k/uL (3.8-10.6)
[2019-05-28 08:00] LABS: ALT 166 U/L (9-52); AST 30 U/L (14-36); African American GFR (CKD) >90 (>60 ml/min/1.73 sqM); Albumin 3.4 g/dL (3.5-5.0); Alkaline Phosphatase 94 U/L (38-126); Blood Urea Nitrogen 20 mg/dL (7-17); Calcium 8.6 mg/dL (8.4-10.2); Chloride 89 mmol/L (98-107); Glucose 164 mg/dL (74-99); Potassium 4.2 mmol/L (3.5-5.1); Sodium 134 mmol/L (137-145); Total Bilirubin 0.8 mg/dL (0.2-1.3); Total Protein 5.8 g/dL (6.3-8.2)
[2019-05-28 08:06] LABS: Anion Gap 4 mmol/L
[2019-05-28 08:31] LABS: Carbon Dioxide 41 mmol/L (22-30)
[2019-05-28] MEDS: FLUTICASONE 110 MCG INHALER INHALATION SCH ×2 (08:35→19:35)
[2019-05-28] MEDS: IPRATROPIUM-ALBUTEROL 3 ML NEB INHALATION PRN ×5 (08:35→23:33)
[2019-05-28] MEDS: INSULIN ASPART (NovoLOG) 100 UNIT/ML VIAL SQ SCH ×4 (08:44→21:39)
[2019-05-28] MEDS: PANTOPRAZOLE 40 MG TABLET PO SCH ×2 (08:44→18:01)
[2019-05-28] MEDS: POTASSIUM CHLORIDE ER 10 MEQ TAB.ER.PRT PO SCH (08:44)
[2019-05-28] MEDS: DOCUSATE 100 MG CAP PO SCH ×2 (08:45→21:38)
[2019-05-28] MEDS: FUROSEMIDE 20 MG TAB PO SCH (08:45)
[2019-05-28] MEDS: ENOXAPARIN 40 MG/0.4 ML SYRINGE SQ SCH (08:45)
[2019-05-28] MEDS: METHIMAZOLE 5 MG TAB PO SCH (08:49)
[2019-05-28] MEDS: HYDROmorphone 1 MG/ML 1 ML SYRINGE IVP PRN ×4 (08:54→21:39)
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
[2019-05-28] MEDS: HYDROcodone/APAP 10-325MG 1 EACH TAB PO PRN ×2 (10:56→22:57)
[2019-05-28 11:36] LABS: Glucose,Whole Blood 123 mg/dL (75-99)
[2019-05-28] MEDS: predniSONE 20 MG TAB PO SCH (12:24)
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
[2019-05-28 14:07] VITALS: BMI 23.8
[2019-05-28 17:56] LABS: Glucose,Whole Blood 206 mg/dL (75-99)
[2019-05-28 21:14] LABS: Glucose,Whole Blood 259 mg/dL (75-99)
[2019-05-28] MEDS: ALPRAZolam 0.25 MG TAB PO PRN (21:37)
[2019-05-28] MEDS: PRAMIPEXOLE 0.5 MG TAB PO SCH (21:38)
[2019-05-28] MEDS: CHOLECALCIFEROL 1,000 UNIT TAB PO SCH (21:38)
[2019-05-28] MEDS: MONTELUKAST 10 MG TAB PO SCH (21:38)
[2019-05-28] MEDS: DILTIAZEM CD 240 MG CAP.ER.24H PO SCH (21:38)
[2019-05-29] MEDS: IPRATROPIUM-ALBUTEROL 3 ML NEB INHALATION PRN ×4 (03:19→15:09)
[2019-05-29] MEDS: HYDROmorphone 1 MG/ML 1 ML SYRINGE IVP PRN ×2 (03:23→06:27)
[2019-05-29] MEDS: HYDROcodone/APAP 10-325MG 1 EACH TAB PO PRN ×3 (05:02→16:45)
[2019-05-29 06:51] LABS: Glucose,Whole Blood 106 mg/dL (75-99)
[2019-05-29] MEDS: FLUTICASONE 110 MCG INHALER INHALATION SCH (07:20)
[2019-05-29] MEDS: INSULIN ASPART (NovoLOG) 100 UNIT/ML VIAL SQ SCH ×3 (07:31→17:03)
[2019-05-29] MEDS: POTASSIUM CHLORIDE ER 10 MEQ TAB.ER.PRT PO SCH (08:27)
[2019-05-29] MEDS: DOCUSATE 100 MG CAP PO SCH (08:27)
[2019-05-29] MEDS: PANTOPRAZOLE 40 MG TABLET PO SCH ×2 (08:27→17:04)
[2019-05-29] MEDS: predniSONE 20 MG TAB PO SCH (08:28)
[2019-05-29] MEDS: FUROSEMIDE 20 MG TAB PO SCH (08:34)
[2019-05-29] MEDS: ALPRAZolam 0.25 MG TAB PO PRN (08:34)
[2019-05-29] MEDS ORDERED: HYDROmorphone 1 MG/ML 1 ML SYRINGE IVP PRN (08:49)
[2019-05-29 09:18] LABS: Basophils # (A) 0.1 k/uL (0-0.2); Basophils % (A) 1 %; Eosinophils % (A) 0 %; HCT 39.9 % (34.0-46.0); HGB 12.7 gm/dL (11.4-16.0); Hypochromasia Slight; Lymphocytes # (A) 0.9 k/uL (1.0-4.8); Lymphocytes % (A) 7 %; MCH 30.2 pg (25.0-35.0); MCV 94.4 fL (80.0-100.0); Mean Platelet Volume 6.3; Monocytes # (A) 0.6 k/uL (0-1.0); Monocytes % (A) 4 %; Neutrophils % (A) 87 %; Platelet Count 111 k/uL (150-450); RBC 4.22 m/uL (3.80-5.40); RDW 15.3 % (11.5-15.5); WBC 13.8 k/uL (3.8-10.6)
[2019-05-29 09:29] LABS: ALT 160 U/L (9-52); AST 34 U/L (14-36); African American GFR (CKD) >90 (>60 ml/min/1.73 sqM); Albumin 3.5 g/dL (3.5-5.0); Alkaline Phosphatase 104 U/L (38-126); Blood Urea Nitrogen 18 mg/dL (7-17); Calcium 8.5 mg/dL (8.4-10.2); Chloride 92 mmol/L (98-107); Glucose 80 mg/dL (74-99); Potassium 3.8 mmol/L (3.5-5.1); Sodium 139 mmol/L (137-145); Total Bilirubin 0.7 mg/dL (0.2-1.3)
[2019-05-29 09:37] LABS: Anion Gap 6 mmol/L
[2019-05-29] MEDS: ENOXAPARIN 40 MG/0.4 ML SYRINGE SQ SCH (09:54)
[2019-05-29] MEDS: METHIMAZOLE 5 MG TAB PO SCH (09:56)
[2019-05-29] MEDS: HYDROmorphone 0.5 MG/0.5 ML SYRINGE IVP PRN ×2 (09:58→14:18)
[2019-05-29 10:09] LABS: Carbon Dioxide 41 mmol/L (22-30)
[2019-05-29 11:13] LABS: Glucose,Whole Blood 103 mg/dL (75-99)
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
[2019-05-29 11:54] VITALS: BP 145/80; RESP 19; TEMP 98.4
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
--- NOTE | 2019-05-29 15:04 | P.PN ---
Progress Note - Text Progress Note Date: 05/29/19 The patient was re-evaluated today. Wrist pain is about the same as last week. No new concerns today. The splint was removed. Skin is intact, bruising noted to the volar aspect of the wrist. A short arm cast was applied. Cast care was discussed with the patient. She will be discharged today likely. Discharge instructions updated.
[2019-05-29 15:24] VITALS: PULSE 92
[2019-05-29] MEDS: ONDANSETRON 4 MG/2 ML VIAL IVP PRN (15:36)
== END 2019-05-29 17:20 | disposition home or self-care (01) | DRG 562 ==
LOC: EC 17:26 → 4SSUR 23:17 → 3NMEDONC 05-26 18:19
PROVIDERS: ADMIT Internal Medicine; ATTEND Internal Medicine
DX: S52.591A Other fractures of lower end of right radius, initial encounter for closed fracture (principal); J96.21 Acute and chronic respiratory failure with hypoxia; J96.22 Acute and chronic respiratory failure with hypercapnia; E43 Unspecified severe protein-calorie malnutrition; E87.4 Mixed disorder of acid-base balance; J44.1 Chronic obstructive pulmonary disease with (acute) exacerbation; M48.54XA Collapsed vertebra, not elsewhere classified, thoracic region, initial encounter for fracture; K21.9 Gastro-esophageal reflux disease without esophagitis; I25.10 Atherosclerotic heart disease of native coronary artery without angina pectoris; F43.10 Post-traumatic stress disorder, unspecified; F40.240 Claustrophobia; F32.9 Major depressive disorder, single episode, unspecified; F17.210 Nicotine dependence, cigarettes, uncomplicated; I50.9 Heart failure, unspecified; I48.0 Paroxysmal atrial fibrillation; M54.5 Low back pain; Z16.24 Resistance to multiple antibiotics; I34.1 Nonrheumatic mitral (valve) prolapse; I11.0 Hypertensive heart disease with heart failure; G89.29 Other chronic pain; E05.90 Thyrotoxicosis, unspecified without thyrotoxic crisis or storm; B18.2 Chronic viral hepatitis C; K57.30 Diverticulosis of large intestine without perforation or abscess without bleeding; K59.00 Constipation, unspecified; M81.0 Age-related osteoporosis without current pathological fracture; S20.219A Contusion of unspecified front wall of thorax, initial encounter; V43.62XA Car passenger injured in collision with other type car in traffic accident, initial encounter; Y92.410 Unspecified street and highway as the place of occurrence of the external cause; V48.4XXA Person boarding or alighting a car injured in noncollision transport accident, initial encounter; I25.2 Old myocardial infarction; Z88.1 Allergy status to other antibiotic agents; Z88.2 Allergy status to sulfonamides; Z88.8 Allergy status to other drugs, medicaments and biological substances; Z98.891 History of uterine scar from previous surgery; Z90.49 Acquired absence of other specified parts of digestive tract; Z90.89 Acquired absence of other organs; Z98.890 Other specified postprocedural states; Z98.49 Cataract extraction status, unspecified eye; Z68.24 Body mass index [BMI] 24.0-24.9, adult; Z79.899 Other long term (current) drug therapy; Z82.49 Family history of ischemic heart disease and other diseases of the circulatory system; Z85.41 Personal history of malignant neoplasm of cervix uteri; Z99.81 Dependence on supplemental oxygen
CPT/HCPCS: 29125; 36415; 70450; 71250; 72100; 72125; 74176; 76705; 80053; 82105; 82803; 85025; 85610; 94640; 94760; 96374; 96376; 99285

== ENCOUNTER → 2019-09-03 | Outpatient (CLI) | payer OTHER ==
--- NOTE | 2019-09-03 17:07 | XR ---
EXAMINATION TYPE: XR chest 2V DATE OF EXAM: 09/03/2019 COMPARISON: 05/07/2019 HISTORY: Hypoxemia TECHNIQUE: FINDINGS: There is some patchy infiltrate in the lingula left upper lobe. The other lung martinez are c lear. There is pulmonary hyperinflation and flattening of the diaphragm there is moderate compression of deformity of T7 vertebra of 70% anterior wedging that has progressed compared to last exam. There is no pleural effusion. There is no heart failure. IMPRESSION: There is some infiltrate in the lingula left upper lobe that is increased slightly compar ed to old exam. COPD. progression of the T7 compression fracture.
== END | disposition home or self-care (01) ==
LOC: RAD 16:25
PROVIDERS: ATTEND Nurse Practitioner
DX: J44.9 Chronic obstructive pulmonary disease, unspecified (principal); M48.54XA Collapsed vertebra, not elsewhere classified, thoracic region, initial encounter for fracture; J45.51 Severe persistent asthma with (acute) exacerbation; R91.8 Other nonspecific abnormal finding of lung field; Z88.8 Allergy status to other drugs, medicaments and biological substances
CPT/HCPCS: 71046

== ENCOUNTER 2019-10-03 13:34 | Inpatient (IN) | payer OTHER ==
[2019-10-03] MEDS ORDERED: MIDAZOLAM 1 MG/ML 5 ML VIAL IV STA (13:45)
[2019-10-03] MEDS ORDERED: ROCURONIUM BROMIDE 10 MG/ML 5 ML VIAL IV STA ×2 (13:45→13:46)
[2019-10-03] MEDS ORDERED: CHLORHEXIDINE GLUCONATE 15 ML CUP MUCOUS MEM ONE (13:50)
[2019-10-03] MEDS ORDERED: AZITHROMYCIN 500 MG in SODIUM CHLORIDE 0.9% 250 ML IVPB STA (13:51)
[2019-10-03] MEDS ORDERED: methylPREDNISolone SOD SUCCI 125 MG/2 ML VIAL IV STA (13:51)
[2019-10-03] MEDS ORDERED: SODIUM CHLORIDE 0.9% 500 ML 500 ML IV STA (13:51)
[2019-10-03] MEDS ORDERED: ALBUTEROL NEBULIZED 2.5 MG/3 ML INHALATION STA (13:51)
[2019-10-03] MEDS ORDERED: IPRATROPIUM 0.5 MG/2.5 ML NEBU INHALATION STA (13:51)
[2019-10-03 13:52] LABS: Glucose,Whole Blood 192 mg/dL (75-99)
[2019-10-03 14:08] LABS: VBG PH 7.34 (7.31-7.41)
[2019-10-03] MEDS ORDERED: SODIUM CHLORIDE 0.9% 500 ML 500 ML IV ONE (14:15)
[2019-10-03 14:19] LABS: ALT 41 U/L (4-34); AST 78 U/L (14-36); African American GFR (CKD) >90 (>60 ml/min/1.73 sqM); Albumin 3.6 g/dL (3.5-5.0); Alkaline Phosphatase 218 U/L (38-126); Anion Gap 15 mmol/L; Blood Urea Nitrogen 16 mg/dL (7-17); Calcium 8.8 mg/dL (8.4-10.2); Carbon Dioxide 39 mmol/L (22-30); Chloride 90 mmol/L (98-107); Glucose 179 mg/dL (74-99); Non-African American GFR(CKD) >90 (>60 ml/min/1.73 sqM); Potassium 4.6 mmol/L (3.5-5.1); Sodium 144 mmol/L (137-145); Total Bilirubin 0.8 mg/dL (0.2-1.3); Total Protein 6.3 g/dL (6.3-8.2)
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
[2019-10-03 14:23] LABS: Partial Thromboplastin Time 23.2 sec (22.0-30.0); Prothrombin Time 10.5 sec (9.0-12.0)
[2019-10-03 14:39] LABS: Appearance,Urine Clear (Clear); Bilirubin,Urine 1+ (Negative); Blood,Urine Trace (Negative); Budding Yeast,Urine Few /hpf; Color,Urine Dark Brown; Glucose,Urine (UA) Negative (Negative); Hyaline Casts,Urine 10 /lpf (0-2); Ketones,Urine Negative (Negative); Leukocyte Esterase,Urine Trace (Negative); Mucus,Urine Occasional /hpf; Nitrite,Urine Positive (Negative); Protein,Urine 1+ (Negative); RBC,Urine 13 /hpf (0-5); Specific Gravity,Urine 1.022 (1.001-1.035); Squamous Epithelial Cell,Urine <1 /hpf (0-4); WBC,Urine 25 /hpf (0-5)
[2019-10-03] MEDS ORDERED: SODIUM CHLORIDE 0.9% 1,000 ML IV ONE (14:41)
[2019-10-03 14:47] LABS: Basophils % (A) 0 %; Eosinophils % (A) 0 %; HCT 45.6 % (34.0-46.0); HGB 13.5 gm/dL (11.4-16.0); Hypochromasia Marked; Lymphocytes # (A) 0.5 k/uL (1.0-4.8); Lymphocytes % (A) 6 %; MCH 28.7 pg (25.0-35.0); MCHC 29.6 g/dL (31.0-37.0); MCV 96.9 fL (80.0-100.0); Mean Platelet Volume 8.7; Monocytes # (A) 0.3 k/uL (0-1.0); Monocytes % (A) 4 %; Neutrophils # (A) 7.1 k/uL (1.3-7.7); Neutrophils % (A) 88 %; Platelet Count 190 k/uL (150-450); RDW 15.1 % (11.5-15.5)
[2019-10-03 14:56] LABS: Cocaine Screen,Urine Not Detected (NotDetected); Phencyclidine Screen,Urine Not Detected (NotDetected); Urn Cannabinoid Scrn Not Detected (NotDetected)
[2019-10-03 14:57] LABS: Amphetamine Screen,Urine Not Detected (NotDetected); Barbiturate Screen,Urine Not Detected (NotDetected); Benzodiazepines Screen,Urine Detected (NotDetected); Methadone Screen, Urine Not Detected (NotDetected); Opiate Screen,Urine Detected (NotDetected); Oxycodone Screen, Urine Detected (NotDetected); Tricyclic Antidepressant,Urine Not Detected (NotDetected)
--- NOTE | 2019-10-03 14:57 | XR ---
EXAMINATION TYPE: XR chest 1V portable DATE OF EXAM: 10/03/2019 COMPARISON: 09/10/2019 INDICATION: Difficulty breathing, postintubation TECHNIQUE: Single frontal view of the chest is obtained. FINDINGS: The heart size is normal. The pulmonary vasculature is normal. No suspicious focal consolidation is evident. There is placement of an endotracheal tube with tip above the archana. Nasogastric tube transverses th e thorax. EKG leads overlie the chest. IMPRESSION: 1. No acute pulmonary process. 2. Lines and catheters discussed above.
[2019-10-03] MEDS ORDERED: OSELTAMIVIR 75 MG CAP PO STA (14:58)
[2019-10-03 15:09] LABS: ABG Base Excess 15.1 mmol/L; ABG Oxygen Saturation 99.9 % (94-97); ABG PH 7.36 (7.35-7.45); ABG PO2 >400 mmHg (83-108); ABG TCO2 43 mmol/L (19-24); Allen Test Performed? Yes
[2019-10-03 15:11] LABS: ABG HCO3 41 mmol/L (21-25); ABG PCO2 71 mmHg (35-45)
[2019-10-03] MEDS ORDERED: PROPOFOL 1,000 MG in EMPTY BAG 1 BAG IV ONE (15:36)
--- NOTE | 2019-10-03 15:44 | CT ---
EXAMINATION TYPE: CT brain wo con DATE OF EXAM: 10/03/2019 COMPARISON: 05/22/[address] HISTORY: Unresponsive, altered mental status CT DLP: 1113.4 mGycm Automated exposure control for dose reduction was used. Head CT performed think departmental protocol FINDINGS: There is no hemorrhage or hydrocephalus. Cerebral vascular calcifications are present. Cortical atrop hy is likely age-related. Periventricular white matter low-attenuation is noted as on prior. The calv arium is intact. Mild inflammatory change present in the sphenoid sinus, ethmoid air cells. Mastoid a ir cells are remarkable for inflammatory change bilaterally. The orbits are symmetric and unremarkabl e. IMPRESSION: NO ACUTE BRAIN ABNORMALITY. SINUS DISEASE, INFLAMMATORY CHANGE MASTOID AIR CELLS. NONSPECIFIC WHITE M ATTER DEMYELINATION, AGE RELATED ATROPHY.
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
[2019-10-03 16:28] LABS: Glucose,Whole Blood 106 mg/dL (75-99)
[2019-10-03] MEDS: IPRATROPIUM-ALBUTEROL 3 ML NEB INHALATION SCH ×2 (16:32→19:39)
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
--- NOTE | 2019-10-03 17:01 | P.PCN ---
Date of Procedure: 10/03/19 Preoperative Diagnosis: Acute respiratory failure Postoperative Diagnosis: Same Procedure(s) Performed: Insertion of arterial line, , insertion of a triple-lumen catheter Anesthesia: local Surgeon: Meagan Raphael Estimated Blood Loss (ml): 0 Condition: critical Disposition: ICU Operative Findings: Indication: Hemodynamic monitoring. A time-out was completed verifying correct patient, procedure, site, positioning, and implant(s) or special equipment if applicable. Allens test was performed to ensure adequate perfusion. The patient left wrist was prepped and draped in sterile fashion. 1% Lidocaine was used to anesthetize the area. An 18G Arrow arterial line was introduced into the radial artery. The catheter was threaded over the guide wire and the needle was removed with appropriate pulsatile blood return. Blood loss was minimal. The catheter was then sutured in place to the skin and a sterile dressing applied. Perfusion to the extremity distal to the point of catheter insertion was checked and found to be adequate. The patient tolerated the procedure well and there were no complications. Indication: Hemodynamic monitoring/Intravenous access. A time-out was completed verifying correct patient, procedure, site, positioning, and implant(s) or special equipment if applicable. The patient was placed in a dependent position appropriate for central line placement based on the vein to be cannulated. The patientleft neck was prepped and draped in sterile fashion. 1% Lidocaine was used to anesthetize the surrounding skin area. A triple lumen 9F Cordis catheter was introduced into the internal jugular vein using Seldinger technique. The catheter was threaded smoothly over the guide wire and appropriate blood return was obtained. Each lumen of the catheter was evacuated of air and flushed with sterile saline. The catheter was then sutured in place to the skin and a sterile dressing applied. Perfusion to the extremity distal to the point of catheter insertion was checked and found to be adequate. The patient tolerated the procedure well and there were no complications.
--- NOTE | 2019-10-03 17:27 | XR ---
EXAMINATION TYPE: XR chest 1V portable DATE OF EXAM: 10/03/2019 COMPARISON: Today HISTORY: Central line placement TECHNIQUE: Single view FINDINGS: There is endotracheal tube 5 cm from the archana. There is left jugular catheter with the ti p in the superior vena cava. No pneumothorax. There are some linear density right lung base consisten t with atelectasis. There is no heart failure. Heart size is normal. There is nasogastric tube in the stomach. IMPRESSION: Mild atelectasis right lung base. No heart failure. Heart and lungs not significantly dif ferent than exam earlier today.
[2019-10-03] MEDS: SODIUM CHLORIDE 0.9% 1,000 ML IV SCH (17:39)
[2019-10-03] MEDS: methylPREDNISolone SOD SUCCI 125 MG/2 ML VIAL IV SCH ×2 (17:39→23:29)
[2019-10-03] MEDS: PROPOFOL 1,000 MG in EMPTY BAG 1 BAG IV SCH ×2 (18:07→21:51)
[2019-10-03] MEDS: CHLORHEXIDINE GLUCONATE 15 ML CUP MUCOUS MEM SCH (20:27)
[2019-10-03] MEDS: OSELTAMIVIR 75 MG CAP PO SCH (20:27)
[2019-10-03] MEDS: IPRATROPIUM-ALBUTEROL 3 ML NEB INHALATION PRN (23:16)
[2019-10-03 23:48] LABS: Glucose,Whole Blood 85 mg/dL (75-99)
[2019-10-04 05:02] LABS: ABG Base Excess 7.5 mmol/L; ABG HCO3 32 mmol/L (21-25); ABG Oxygen Saturation 97.4 % (94-97); ABG PCO2 52 mmHg (35-45); ABG PO2 96 mmHg (83-108); ABG TCO2 34 mmol/L (19-24)
[2019-10-04 05:20] LABS: Basophils % (A) 0 %; Eosinophils % (A) 0 %; HCT 37.5 % (34.0-46.0); HGB 11.3 gm/dL (11.4-16.0); Hypochromasia Marked; Lymphocytes # (A) 0.4 k/uL (1.0-4.8); Lymphocytes % (A) 5 %; MCH 28.4 pg (25.0-35.0); MCV 94.9 fL (80.0-100.0); Mean Platelet Volume 8.7; Monocytes # (A) 0.4 k/uL (0-1.0); Monocytes % (A) 5 %; Neutrophils # (A) 6.7 k/uL (1.3-7.7); Neutrophils % (A) 90 %; Platelet Count 141 k/uL (150-450); RBC 3.96 m/uL (3.80-5.40); RDW 15.7 % (11.5-15.5); WBC 7.5 k/uL (3.8-10.6)
[2019-10-04 05:32] LABS: ALT 33 U/L (4-34); AST 37 U/L (14-36); African American GFR (CKD) >90 (>60 ml/min/1.73 sqM); Albumin 2.6 g/dL (3.5-5.0); Alkaline Phosphatase 166 U/L (38-126); Anion Gap 4 mmol/L; Blood Urea Nitrogen 13 mg/dL (7-17); Carbon Dioxide 33 mmol/L (22-30); Chloride 103 mmol/L (98-107); Glucose 90 mg/dL (74-99); Non-African American GFR(CKD) >90 (>60 ml/min/1.73 sqM); Sodium 140 mmol/L (137-145); Total Bilirubin 0.5 mg/dL (0.2-1.3); Total Protein 4.8 g/dL (6.3-8.2)
[2019-10-04] MEDS: SODIUM CHLORIDE 0.9% 1,000 ML IV SCH ×2 (05:40→20:59)
[2019-10-04 05:52] LABS: Glucose,Whole Blood 101 mg/dL (75-99)
[2019-10-04] MEDS: MORPHINE SULFATE 2 MG/ML SYRINGE IVP PRN ×2 (06:13→08:46)
[2019-10-04] MEDS: hydrALAZINE HCL 20 MG/ML 1 ML VIAL IVP PRN ×2 (06:13→12:32)
[2019-10-04] MEDS: methylPREDNISolone SOD SUCCI 125 MG/2 ML VIAL IV SCH ×3 (06:18→18:17)
--- NOTE | 2019-10-04 06:47 | XR ---
EXAMINATION TYPE: XR chest 1V portable DATE OF EXAM: 10/04/2019 HISTORY: Tube placement. REFERENCE: Previous study dated 10/03/2019. FINDINGS: The patient is ET tube and NG tube remain in place, unchanged from previous. There is a lef t internal jugular catheter in place. Its tip is at the cavoatrial junction. There is worsening left upper lobe and right lower lobe airspace disease. Lung volumes are prominent. The heart is not enlarged. I cannot exclude small, bilateral effusions. IMPRESSION: WORSENING LEFT UPPER AND RIGHT LOWER LOBE INFILTRATES.
[2019-10-04] MEDS: IPRATROPIUM-ALBUTEROL 3 ML NEB INHALATION SCH ×4 (07:14→19:03)
[2019-10-04] MEDS ORDERED: PANTOPRAZOLE 40 MG TABLET PO SCH (07:30)
[2019-10-04] MEDS: PROPOFOL 1,000 MG in EMPTY BAG 1 BAG IV SCH (07:36)
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
[2019-10-04] MEDS: CHLORHEXIDINE GLUCONATE 15 ML CUP MUCOUS MEM SCH ×2 (10:00→22:43)
[2019-10-04] MEDS: ENOXAPARIN 40 MG/0.4 ML SYRINGE SQ SCH (10:05)
[2019-10-04] MEDS: PANTOPRAZOLE 40 MG/10 ML VIAL IVP SCH (10:06)
[2019-10-04] MEDS: HYDROcodone/APAP 10-325MG 1 EACH TAB PO PRN ×2 (12:23→22:28)
[2019-10-04] MEDS: OSELTAMIVIR 75 MG CAP PO SCH ×2 (12:24→22:29)
[2019-10-04] MEDS: DILTIAZEM CD 240 MG CAP.ER.24H PO SCH (13:40)
[2019-10-04] MEDS: ONDANSETRON 4 MG/2 ML VIAL IVP PRN ×2 (13:42→23:07)
[2019-10-04 17:53] LABS: Glucose,Whole Blood 113 mg/dL (75-99)
--- NOTE | 2019-10-04 17:56 | P.PN ---
Subjective Progress Note Date: 10/04/19 This 64-year-old female with a known history of COPD, chronic hypoxic respiratory failure home O2 dependent, hypothyroidism, chronic back pain, paroxysmal atrial fibrillation, chronic hepatitis C infection, kidney stones. History was obtained from ER report and patient's . She is currently intubated and sedated. And in the ICU. Per her she had been complaining of some shortness of breath and cough over the last several days. She had also recently been at [facility] for COPD exacerbation and was discharged on steroids. He also reports that she was complaining of back pain and thought that it may be her kidney stone bothering her. He believes that she may have taken extra pain medications. The reports that he was trying to get his to the core to bring her to the hospital. While she was walking she started to sway and then fell to the ground and hit her head. He could not get her to wake up. He called EMS. She was found at home by EMS with oxygen saturation 70% and on 2 L nasal cannula. At that time she was minimally responsive. And had developed bag mask ventilation to transport. Patient was intubated on arrival to ER physician. She'll be admitted to the ICU. Dr. Raphael has been consulted for ICU and vent management. EKG normal sinus rhythm. Chest x-ray negative for any acute pulmonary process. Influenza A is positive. She has evidence of a UTI. She's given Rocephin in the ER and started on Tamiflu. Lactic acid elevated at 5.4. Drug screen is positive for opiates Oxycodone and benzodiazepine. Objective - Vital Signs Vital signs: Vital Signs Temp 99.0 F 10/04/19 12:00 Pulse 114 H 10/04/19 17:00 Resp 22 10/04/19 17:00 BP 135/75 10/04/19 17:00 Pulse Ox 94 L 10/04/19 17:00 Intake & Output 10/03/19 10/04/19 10/04/19 18:59 06:59 18:59 Intake Total 1075 1905.884 882.484 Output Total 300 367 895 Balance 775 1538.884 -12.516 Weight 49.895 kg 50.8 kg Intake: IV 1075 1750 825 Sodium Chloride 0.9% 1, 1075 1750 825 000 ml @ 75 mls/hr IV . [id number] ROXY Rx#:[id number] Intake, IV Titration 155.884 57.484 Amount Propofol 1,000 mg In 155.884 7.484 Empty Bag 1 bag @ Titrate IV .Q0M ROXY Rx#: [id number] cefTRIAXone 1 gm In 50 Sodium Chloride 0.9% 50 ml @ 100 mls/hr IVPB Q24HR ROXY Rx#:[id number] Output: Urine 300 367 895 Other: Voiding Method Indwelling Catheter Indwelling Catheter Indwelling Catheter ABP, PAP, CO, CI - Last Documented Arterial Blood Pressure 153/61 - Exam Patient is alert and oriented 3 she is maintained on BiPAP at this time, she is able to communicate HEENT head normocephalic and atraumatic Neck is supple no JVD no goiter Chest exam reveals coarse crackles bilaterally no wheezing Cardiac exam reveals regular heart sounds no gallops no murmurs Abdomen is soft nontender no organomegaly Extremity exam reveals minimal edema no cyanosis or clubbing Neurological examination reveals no gross focal deficit - Labs CBC & Chem 7: 10/04/19 05:00 10/04/19 05:00 Labs: Abnormal Lab Results - Last 24 Hours (Table) 10/04/19 10/04/19 10/04/19 Range/Units 04:58 05:00 05:00 Hgb 11.3 L (11.4-16.0) gm/dL MCHC 30.0 L (31.0-37.0) g/dL RDW 15.7 H (11.5-15.5) % Plt Count 141 L (150-450) k/uL Lymphocytes # 0.4 L (1.0-4.8) k/uL ABG pCO2 52 H (35-45) mmHg ABG HCO3 32 H (21-25) mmol/L ABG Total CO2 34 H (19-24) mmol/L ABG O2 Saturation 97.4 H (94-97) % Carbon Dioxide 33 H (22-30) mmol/L Creatinine 0.33 L (0.52-1.04) mg/dL POC Glucose (mg/dL) (75-99) mg/dL Calcium 8.0 L (8.4-10.2) mg/dL AST 37 H (14-36) U/L Alkaline Phosphatase 166 H (38-126) U/L Total Protein 4.8 L (6.3-8.2) g/dL Albumin 2.6 L (3.5-5.0) g/dL 10/04/19 10/04/19 Range/Units 05:50 17:51 Hgb (11.4-16.0) gm/dL MCHC (31.0-37.0) g/dL RDW (11.5-15.5) % Plt Count (150-450) k/uL Lymphocytes # (1.0-4.8) k/uL ABG pCO2 (35-45) mmHg ABG HCO3 (21-25) mmol/L ABG Total CO2 (19-24) mmol/L ABG O2 Saturation (94-97) % Carbon Dioxide (22-30) mmol/L Creatinine (0.52-1.04) mg/dL POC Glucose (mg/dL) 101 H 113 H (75-99) mg/dL Calcium (8.4-10.2) mg/dL AST (14-36) U/L Alkaline Phosphatase (38-126) U/L Total Protein (6.3-8.2) g/dL Albumin (3.5-5.0) g/dL Microbiology - Last 24 Hours (Table) 10/03/19 14:15 Blood Culture - Preliminary Blood No Growth after 24 hours 10/03/19 14:21 Gram Stain - Preliminary Sputum Sputum Culture - Preliminary Assessment and Plan Plan: 1. Acute hypoxic and hypercapnic respiratory failure requiring to be placed on mechanical ventilation. Patient is currently intubated and sedated. Critical care service is consulted 2. Unresponsiveness and acute respiratory failure possibly related to pain medication overdose. It is unclear exactly how much pain medication was taken. reports the patient may have taken extra pain medication for her back pain. 3. Influenza A positive. Patient started on Tamiflu 4. UTI: Continue Rocephin 1 g daily. Check urine culture 5. Sepsis present on admission patient's hypoxic and tachycardic. Blood culture pending. Continue with antibiotics and IV fluids 6. Elevated LFTs: Possibly related to patient's chronic hepatitis C. Patient also has a known liver lesion is stable. And is followed by GI service. 7. History of paroxysmal atrial fibrillation not on anticoagulation due to history of GI bleed 8. History of hyperthyroidism maintained on Tapazole 9. History of chronic low back pain 10. History of COPD and evidence of acute exacerbation. Patient started on IV steroids in ER 11. History of kidney stone status post lithotripsy GI prophylaxis Protonix and DVT prophylaxis Lovenox
[2019-10-04 18:02] LABS: ABG Base Excess -7.5 mmol/L; ABG HCO3 19 mmol/L (21-25); ABG Oxygen Saturation 98.8 % (94-97); ABG PCO2 39 mmHg (35-45); ABG PO2 136 mmHg (83-108); ABG TCO2 20 mmol/L (19-24); Allen Test Performed? Yes
[2019-10-04 18:35] LABS: Basophils % (A) 0 %; Eosinophils % (A) 0 %; HGB 11.8 gm/dL (11.4-16.0); Hypochromasia Moderate; Lymphocytes # (A) 0.3 k/uL (1.0-4.8); Lymphocytes % (A) 3 %; MCH 27.9 pg (25.0-35.0); MCHC 29.5 g/dL (31.0-37.0); MCV 94.5 fL (80.0-100.0); Mean Platelet Volume 8.4; Monocytes # (A) 0.4 k/uL (0-1.0); Monocytes % (A) 4 %; Neutrophils # (A) 9.1 k/uL (1.3-7.7); Neutrophils % (A) 92 %; Platelet Count 179 k/uL (150-450); RBC 4.23 m/uL (3.80-5.40); RDW 15.8 % (11.5-15.5); WBC 9.8 k/uL (3.8-10.6)
[2019-10-04 19:59] LABS: Glucose,Whole Blood 106 mg/dL (75-99)
[2019-10-04 20:01] LABS: ABG Base Excess 12.3 mmol/L; ABG HCO3 37 mmol/L (21-25); ABG Oxygen Saturation 95.2 % (94-97); ABG PCO2 62 mmHg (35-45); ABG PH 7.39 (7.35-7.45); ABG PO2 75 mmHg (83-108); ABG TCO2 39 mmol/L (19-24)
[2019-10-04 20:05] LABS: Allen Test Performed? no
[2019-10-04] MEDS: IPRATROPIUM-ALBUTEROL 3 ML NEB INHALATION PRN (23:21)
[2019-10-04 23:49] LABS: Glucose,Whole Blood 101 mg/dL (75-99)
[2019-10-05] MEDS: methylPREDNISolone SOD SUCCI 125 MG/2 ML VIAL IV SCH ×4 (00:12→18:24)
[2019-10-05] MEDS: MORPHINE SULFATE 2 MG/ML SYRINGE IVP PRN ×5 (01:12→22:38)
[2019-10-05] MEDS: IPRATROPIUM-ALBUTEROL 3 ML NEB INHALATION PRN ×2 (02:54→23:29)
[2019-10-05] MEDS: HYDROcodone/APAP 10-325MG 1 EACH TAB PO PRN ×4 (03:09→20:28)
[2019-10-05 04:25] LABS: Basophils % (A) 0 %; Eosinophils % (A) 0 %; HCT 35.3 % (34.0-46.0); HGB 10.7 gm/dL (11.4-16.0); Hypochromasia Moderate; Lymphocytes # (A) 0.3 k/uL (1.0-4.8); Lymphocytes % (A) 4 %; MCH 28.5 pg (25.0-35.0); MCHC 30.2 g/dL (31.0-37.0); MCV 94.3 fL (80.0-100.0); Mean Platelet Volume 8.4; Monocytes # (A) 0.4 k/uL (0-1.0); Monocytes % (A) 4 %; Neutrophils # (A) 7.8 k/uL (1.3-7.7); Neutrophils % (A) 91 %; Platelet Count 162 k/uL (150-450); RBC 3.74 m/uL (3.80-5.40); RDW 15.7 % (11.5-15.5); WBC 8.6 k/uL (3.8-10.6)
[2019-10-05 04:42] LABS: ALT 30 U/L (4-34); AST 29 U/L (14-36); African American GFR (CKD) >90 (>60 ml/min/1.73 sqM); Albumin 2.6 g/dL (3.5-5.0); Alkaline Phosphatase 154 U/L (38-126); Anion Gap 1 mmol/L; Blood Urea Nitrogen 17 mg/dL (7-17); Calcium 8.4 mg/dL (8.4-10.2); Carbon Dioxide 37 mmol/L (22-30); Chloride 102 mmol/L (98-107); Glucose 99 mg/dL (74-99); Non-African American GFR(CKD) >90 (>60 ml/min/1.73 sqM); Potassium 3.9 mmol/L (3.5-5.1); Sodium 140 mmol/L (137-145); Total Bilirubin 0.5 mg/dL (0.2-1.3); Total Protein 4.9 g/dL (6.3-8.2)
[2019-10-05] MEDS ORDERED: POTASSIUM CHLORIDE ER 20 MEQ TAB.ER PO SCH (05:00)
[2019-10-05] MEDS: SODIUM CHLORIDE 0.9% 1,000 ML IV SCH ×2 (05:23→08:12)
--- NOTE | 2019-10-05 05:56 | XR ---
EXAMINATION TYPE: XR chest 1V portable DATE OF EXAM: 10/05/2019 HISTORY: Tube placement. REFERENCE: Previous study dated 10/04/2019. FINDINGS: The patient has been extubated. The patient is NG tube is been removed. A left internal jug ular catheter remains in place. Its tip is in the right atrium. There is improved aeration in the left upper lobe. There continues be airspace disease in the right l ower lobe. I suspect a small right effusion. The heart is not enlarged. IMPRESSION: IMPROVED AERATION, LEFT UPPER LOBE.
[2019-10-05 06:02] LABS: Glucose,Whole Blood 171 mg/dL (75-99)
[2019-10-05 06:31] LABS: Glucose,Whole Blood 146 mg/dL (75-99)
[2019-10-05] MEDS: INSULIN ASPART (NovoLOG) 100 UNIT/ML VIAL SQ SCH ×4 (06:33→20:24)
[2019-10-05] MEDS: IPRATROPIUM-ALBUTEROL 3 ML NEB INHALATION SCH ×4 (07:16→19:15)
[2019-10-05] MEDS: OSELTAMIVIR 75 MG CAP PO SCH ×2 (08:06→20:24)
[2019-10-05] MEDS: ENOXAPARIN 40 MG/0.4 ML SYRINGE SQ SCH (08:06)
[2019-10-05] MEDS: PANTOPRAZOLE 40 MG/10 ML VIAL IVP SCH (08:06)
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
--- NOTE | 2019-10-05 10:44 | P.PN ---
Subjective Progress Note Date: 10/05/19 This 64-year-old female with a known history of COPD, chronic hypoxic respiratory failure home O2 dependent, hypothyroidism, chronic back pain, paroxysmal atrial fibrillation, chronic hepatitis C infection, kidney stones. History was obtained from ER report and patient's . She is currently intubated and sedated. And in the ICU. Per her she had been complaining of some shortness of breath and cough over the last several days. She had also recently been at for COPD exacerbation and was discharged on steroids. He also reports that she was complaining of back pain and thought that it may be her kidney stone bothering her. He believes that she may have taken extra pain medications. The reports that he was trying to get his to the core to bring her to the hospital. While she was walking she started to sway and then fell to the ground and hit her head. He could not get her to wake up. He called EMS. She was found at home by EMS with oxygen saturation 70% and on 2 L nasal cannula. At that time she was minimally responsive. And had developed bag mask ventilation to transport. Patient was intubated on arrival to ER physician. She'll be admitted to the ICU. Dr. Raphael has been consulted for ICU and vent management. EKG normal sinus rhythm. Chest x-ray negative for any acute pulmonary process. Influenza A is positive. She has evidence of a UTI. She's given Rocephin in the ER and started on Tamiflu. Lactic acid elevated at 5.4. Drug screen is positive for opiates Oxycodone and benzodiazepine. On 10/05/2019 patient was seen and examined in the ICU she is alert and oriented 3 in no apparent distress she is still complaining of shortness of breath and complaining of severe pain in her back otherwise she denies any complaints, there is no fever or chills no headache or dizziness no chest pain no nausea or vomiting no abdominal pain no diarrhea no burning with urination no frequency or urgency no hematuria, patient is off BiPAP and is maintained on oxygen via nasal cannula 2 L/m Objective - Vital Signs Vital signs: Vital Signs Temp 97.8 F 10/05/19 04:00 Pulse 70 10/05/19 07:16 Resp 15 10/05/19 07:00 BP 124/68 02/23/20 07:00 Pulse Ox 96 10/05/19 07:00 Intake & Output 10/04/19 10/05/19 10/05/19 18:59 06:59 18:59 Intake Total 957.484 992.516 315 Output Total 1170 495 30 Balance -212.516 497.516 285 Weight 52.3 kg Intake: IV 900 900 75 Sodium Chloride 0.9% 1, 900 900 75 000 ml @ 75 mls/hr IV . [id number] [facility] Rx#:[id number] Intake, IV Titration 57.484 92.516 Amount Propofol 1,000 mg In 7.484 92.516 Empty Bag 1 bag @ Titrate IV .Q0M [facility] Rx#: [id number] cefTRIAXone 1 gm In 50 Sodium Chloride 0.9% 50 ml @ 100 mls/hr IVPB Q24HR [facility] Rx#:[id number] Oral 240 Output: Urine 1170 495 30 Other: Voiding Method Indwelling Catheter Indwelling Catheter ABP, PAP, CO, CI - Last Documented Arterial Blood Pressure 99/56 - Exam Patient is alert and oriented 3 she is maintained on BiPAP at this time, she is able to communicate HEENT head normocephalic and atraumatic Neck is supple no JVD no goiter Chest exam reveals coarse crackles bilaterally no wheezing Cardiac exam reveals regular heart sounds no gallops no murmurs Abdomen is soft nontender no organomegaly Extremity exam reveals minimal edema no cyanosis or clubbing Neurological examination reveals no gross focal deficit - Labs CBC & Chem 7: 10/05/19 04:06 10/05/19 04:06 Labs: Abnormal Lab Results - Last 24 Hours (Table) 10/04/19 10/04/19 10/04/19 Range/Units 17:51 17:59 18:23 RBC (3.80-5.40) m/uL Hgb (11.4-16.0) gm/dL MCHC 29.5 L (31.0-37.0) g/dL RDW 15.8 H (11.5-15.5) % Neutrophils # 9.1 H (1.3-7.7) k/uL Lymphocytes # 0.3 L (1.0-4.8) k/uL ABG pH 7.30 L (7.35-7.45) ABG pCO2 (35-45) mmHg ABG pO2 136 H (83-108) mmHg ABG HCO3 19 L (21-25) mmol/L ABG Total CO2 (19-24) mmol/L ABG O2 Saturation 98.8 H (94-97) % Carbon Dioxide (22-30) mmol/L Creatinine (0.52-1.04) mg/dL POC Glucose (mg/dL) 113 H (75-99) mg/dL Alkaline Phosphatase (38-126) U/L Total Protein (6.3-8.2) g/dL Albumin (3.5-5.0) g/dL 10/04/19 10/04/19 10/04/19 Range/Units 19:56 19:58 23:47 RBC (3.80-5.40) m/uL Hgb (11.4-16.0) gm/dL MCHC (31.0-37.0) g/dL RDW (11.5-15.5) % Neutrophils # (1.3-7.7) k/uL Lymphocytes # (1.0-4.8) k/uL ABG pH (7.35-7.45) ABG pCO2 62 H (35-45) mmHg ABG pO2 75 L (83-108) mmHg ABG HCO3 37 H (21-25) mmol/L ABG Total CO2 39 H (19-24) mmol/L ABG O2 Saturation (94-97) % Carbon Dioxide (22-30) mmol/L Creatinine (0.52-1.04) mg/dL POC Glucose (mg/dL) 106 H 101 H (75-99) mg/dL Alkaline Phosphatase (38-126) U/L Total Protein (6.3-8.2) g/dL Albumin (3.5-5.0) g/dL 10/05/19 10/05/19 10/05/19 Range/Units 04:06 04:06 06:00 RBC 3.74 L (3.80-5.40) m/uL Hgb 10.7 L (11.4-16.0) gm/dL MCHC 30.2 L (31.0-37.0) g/dL RDW 15.7 H (11.5-15.5) % Neutrophils # 7.8 H (1.3-7.7) k/uL Lymphocytes # 0.3 L (1.0-4.8) k/uL ABG pH (7.35-7.45) ABG pCO2 (35-45) mmHg ABG pO2 (83-108) mmHg ABG HCO3 (21-25) mmol/L ABG Total CO2 (19-24) mmol/L ABG O2 Saturation (94-97) % Carbon Dioxide 37 H (22-30) mmol/L Creatinine 0.30 L (0.52-1.04) mg/dL POC Glucose (mg/dL) 171 H (75-99) mg/dL Alkaline Phosphatase 154 H (38-126) U/L Total Protein 4.9 L (6.3-8.2) g/dL Albumin 2.6 L (3.5-5.0) g/dL 10/05/19 Range/Units 06:29 RBC (3.80-5.40) m/uL Hgb (11.4-16.0) gm/dL MCHC (31.0-37.0) g/dL RDW (11.5-15.5) % Neutrophils # (1.3-7.7) k/uL Lymphocytes # (1.0-4.8) k/uL ABG pH (7.35-7.45) ABG pCO2 (35-45) mmHg ABG pO2 (83-108) mmHg ABG HCO3 (21-25) mmol/L ABG Total CO2 (19-24) mmol/L ABG O2 Saturation (94-97) % Carbon Dioxide (22-30) mmol/L Creatinine (0.52-1.04) mg/dL POC Glucose (mg/dL) 146 H (75-99) mg/dL Alkaline Phosphatase (38-126) U/L Total Protein (6.3-8.2) g/dL Albumin (3.5-5.0) g/dL Microbiology - Last 24 Hours (Table) 10/03/19 14:15 Blood Culture - Preliminary Blood No Growth after 24 hours Assessment and Plan Plan: 1. Acute hypoxic and hypercapnic respiratory failure requiring to be placed on mechanical ventilation. Patient is currently intubated and sedated. Critical care service is consulted 2. Unresponsiveness and acute respiratory failure possibly related to pain medication overdose. It is unclear exactly how much pain medication was taken. reports the patient may have taken extra pain medication for her back pain. 3. Influenza A positive. Patient started on Tamiflu 4. UTI: Continue Rocephin 1 g daily. Check urine culture 5. Sepsis present on admission patient's hypoxic and tachycardic. Blood culture pending. Continue with antibiotics and IV fluids 6. Elevated LFTs: Possibly related to patient's chronic hepatitis C. Patient also has a known liver lesion is stable. And is followed by GI service. 7. History of paroxysmal atrial fibrillation not on anticoagulation due to history of GI bleed 8. History of hyperthyroidism maintained on Tapazole 9. History of chronic low back pain 10. History of COPD and evidence of acute exacerbation. Patient started on IV steroids in ER 11. History of kidney stone status post lithotripsy GI prophylaxis Protonix and DVT prophylaxis Lovenox
[2019-10-05] MEDS: CHLORHEXIDINE GLUCONATE 15 ML CUP MUCOUS MEM SCH (11:49)
[2019-10-05 11:58] LABS: Glucose,Whole Blood 112 mg/dL (75-99)
[2019-10-05] MEDS: ONDANSETRON 4 MG/2 ML VIAL IVP PRN (14:48)
[2019-10-05 16:55] LABS: Glucose,Whole Blood 141 mg/dL (75-99)
[2019-10-05 20:01] LABS: Glucose,Whole Blood 151 mg/dL (75-99)
[2019-10-05] MEDS: DILTIAZEM CD 240 MG CAP.ER.24H PO SCH (20:24)
[2019-10-06] MEDS: methylPREDNISolone SOD SUCCI 125 MG/2 ML VIAL IV SCH ×4 (01:21→17:23)
[2019-10-06] MEDS: HYDROcodone/APAP 10-325MG 1 EACH TAB PO PRN ×6 (01:25→22:04)
[2019-10-06] MEDS: IPRATROPIUM-ALBUTEROL 3 ML NEB INHALATION PRN (03:15)
[2019-10-06] MEDS: MORPHINE SULFATE 2 MG/ML SYRINGE IVP PRN (03:28)
[2019-10-06 04:44] LABS: Basophils % (A) 0 %; Eosinophils % (A) 0 %; HGB 10.5 gm/dL (11.4-16.0); Hypochromasia Moderate; Lymphocytes # (A) 0.3 k/uL (1.0-4.8); Lymphocytes % (A) 3 %; MCV 93.5 fL (80.0-100.0); Mean Platelet Volume 8.2; Monocytes # (A) 0.4 k/uL (0-1.0); Monocytes % (A) 4 %; Neutrophils # (A) 8.9 k/uL (1.3-7.7); Neutrophils % (A) 92 %; Platelet Count 163 k/uL (150-450); RBC 3.64 m/uL (3.80-5.40); RDW 15.8 % (11.5-15.5); WBC 9.7 k/uL (3.8-10.6)
[2019-10-06 05:04] LABS: ALT 29 U/L (4-34); AST 24 U/L (14-36); African American GFR (CKD) >90 (>60 ml/min/1.73 sqM); Albumin 2.8 g/dL (3.5-5.0); Alkaline Phosphatase 146 U/L (38-126); Anion Gap -1 mmol/L; Blood Urea Nitrogen 19 mg/dL (7-17); Calcium 8.7 mg/dL (8.4-10.2); Carbon Dioxide 39 mmol/L (22-30); Chloride 101 mmol/L (98-107); Glucose 122 mg/dL (74-99); Non-African American GFR(CKD) >90 (>60 ml/min/1.73 sqM); Potassium 4.5 mmol/L (3.5-5.1); Sodium 139 mmol/L (137-145); Total Bilirubin 0.5 mg/dL (0.2-1.3); Total Protein 5.1 g/dL (6.3-8.2)
[2019-10-06] MEDS: ONDANSETRON 4 MG/2 ML VIAL IVP PRN (05:57)
[2019-10-06 06:29] LABS: Glucose,Whole Blood 109 mg/dL (75-99)
[2019-10-06] MEDS: INSULIN ASPART (NovoLOG) 100 UNIT/ML VIAL SQ SCH ×4 (06:38→22:08)
[2019-10-06] MEDS: IPRATROPIUM-ALBUTEROL 3 ML NEB INHALATION SCH ×4 (07:04→20:56)
--- NOTE | 2019-10-06 08:34 | XR ---
EXAMINATION TYPE: XR chest 1V portable DATE OF EXAM: 10/06/2019 COMPARISON: 10/05/2019 HISTORY: SOB, Follow Up FINDINGS: Indwelling tubes and catheters are unchanged. No change in bibasilar opacities. Stable appearance of the cardio-mediastinal structures at this time. Pleural effusion unchanged. IMPRESSION: 1. Stable portable chest. Clinical correlation and follow up until resolution is recommended.
[2019-10-06] MEDS: PANTOPRAZOLE 40 MG/10 ML VIAL IVP SCH (08:55)
[2019-10-06] MEDS: ENOXAPARIN 40 MG/0.4 ML SYRINGE SQ SCH (08:55)
[2019-10-06] MEDS: OSELTAMIVIR 75 MG CAP PO SCH ×2 (08:55→22:07)
--- NOTE | 2019-10-06 11:03 | P.PN ---
Subjective Progress Note Date: 10/06/19 Principal diagnosis: Acute exacerbation of COPD with acute hypoxic and hypercapnic respiratory failure and acute influenza bronchitis 65-year-old female patient with known history of advanced COPD and chronic hypoxic respiratory failure came into the emergency department unresponsive and respiratory failure. I was able to obtain information from emergency department reports. The patient was already intubated by the time she arrived to the intensive care unit. I was asked to evaluate this patient upon the request of the primary care physician. Apparently the patient has been complaining of worsening shortness of breath and cough over the past several days. She was re cently at [facility] for an acute COPD exacerbation which she was discharged home on a prednisone burst taper. She will also complaining of some back pain related to kidney stones. She was apparently given some pain medication and were not sure if she is taken his medication increased quant ities. The reports that the patient was short of breath and he was trying to get his to come in to the hospital. While walking, she became unsteady and she fell on the ground and hit her head. He apparently was unable to get her to wake. He called EMS and EMS found this patient at home with a pulse of 70% on 2 L of oxygen by nasal cannula. At that time she was minimally responsive. She was bagged and transported to the hospital. The patient was intubated upon arrival by the ED doctor. Subsequently, she was started on sedation with propofol which is running at 25 g per KG per minute. She came into the intensive care unit on an assist-control mode of ventilation at the r ate of 15 with an FiO2 of 60% and a PEEP of 5 and tidal volume of 400. She did checked positive for influenza A and she was placed in droplet isolation. She does have electric stop 5.4. Urine tox is positive for opiates and benzodiazepines. S x-ray reveals COPD and ET tube is in a good location. The CAT scan of the brain showed no acute abnormality. There is chronic and symmetric changes in the mastoid air cells. Nonspecific white matter demyelination and age-related atrophy is also seen. The post intubation blood gas showed a pH of 7.36 with a pCO2 of 71 and a pO2 of more than 400. This was on FiO2 of 100%. She is on no pressors. BP is 124/75 with a pulse of 85. She is moving all 4 extremities upon painful stimulation although she is sedated. He was started on Tamiflu. She was started on empiric antibiotic coverage with Rocephin. DuoNeb the right since of the clock and IV Solu Medrol 60 mg every 6 hours. Peak air pressures around 39 with a static pressure of 19. On today's evaluation of 10/04/2019 on seeing the patient for a follow-up. She is relatively awake even while being on a propofol of 60 mcg/kg per minute. She is following some simple commands. There is improvement in her overall pulmonary status. She is less bronchospastic and wheezy. Peak airway pressures down to 23. She is an assist-control mode at the rate of 60 with a tidal volume 400 and FiO2 of 40% with a PEEP of 5. Despite her being on sedation pH is following some simple commands. Her blood gas showed a pH of 7.4 with a pCO2 of 52 and pO2 of 96. Her white cell count is at 7.5. Sputum Gram stain and culture was collected. She was started on Tamiflu regarding influenza A and she also is on Rocephin as an empiric antibiotic coverage. She is better in terms of her blood pressure control. She is getting on and off morphine and hydralazine for blood pressure control. She is on IV Solu-Medrol. No other significant events overnight. No fever. No diarrhea. On 10/05/2019 the patient is awake and alert following commands and answering questions. Overnight, the patient became a bit more lethargic. We repeated the blood gases and there was no significant respiratory acidosis and was essentially consistent with chronic hypercapnic respiratory failure. I put on a BiPAP at a pressure of 14/5 cm of water and she did very well and this morning she is on oxygen at 2 L per minute nasal cannula. Chest x-ray is showing some chronic scarring and some limited infiltration of the lung bases. She remains on Tamiflu. She remains on IV Solu-Medrol. She remains on IV Rocephin. No altered mentation. Some limited cough and congestion. Without any significant sputum production. She did have some soft diet yesterday/clear liquids. She is weak. She is having chronic pain pH is back on [place] 10 one tablet every 4 hours. No fever. No chills. No nausea. No vomiting. No other significant events overnight. Patient was reevaluated today on 10/06/2019, patient remains in the ICU, she is on 3 L nasal cannula, she has BiPAP at bedside, but she looks great. Patient t ells me that she feels much better, breathing a lot easier. Has been intermittently on BiPAP especially at night with IPAP of 14 and EPAP of 5. Chest x-ray is showing right lower lobe atelectasis and possibly a small effusion. No clear-cut evidence of pneumonia. WBC count is 9.7 hemoglobin is 10.5 electrolytes are normal bicarb is 39 BUN is 19 and creatinine 0.26. Antibiotics maya, patient remains on Rocephin. She is also on bronchodilators, steroids/Solu-Medrol, and she is on Tamiflu. Remains on GI and DVT prophylaxis. Objective - Vital Signs Vital signs: Vital Signs Temp 98.5 F 10/06/19 08:00 Pulse 70 10/06/19 10:52 Resp 33 H 10/06/19 09:00 BP 130/77 10/06/19 09:00 Pulse Ox 91 L 10/06/19 09:00 Intake & Output 10/05/19 10/06/19 10/06/19 18:59 06:59 18:59 Intake Total 1245 513 69 Output Total 410 425 110 Balance 835 88 -41 Weight 54.3 kg Intake: IV 405 273 69 KVO 220 60 Sodium Chloride 0.9% 1, 405 20 000 ml @ 75 mls/hr IV . [id number] [facility] Rx#:[id number] pressure bag 33 9 Oral 840 240 Output: Urine 410 425 110 Other: Voiding Method Indwelling Catheter Indwelling Catheter Indwelling Catheter ABP, PAP, CO, CI - Last Documented Arterial Blood Pressure 168/61 - Exam Physical Exam: Revealed a 64-year-old female in no distress, on 3 L nasal cannula. Head: Atraumatic, normocephalic. HEENT:[Neck is supple.] [No neck masses.] [No thyromegaly.] [No JVD.] PERRLA, EOMI, no icterus, moist mucous membranes. Chest: [Clear throughout diminished breath sounds at the bases, minimal wheezing on forced expiratory maneuver only. Cardiac Exam: [Normal S1 and S2, no S3 gallop, no murmur.] Abdomen: [Soft, nontender, no megaly, no rebound, no guarding, normal bowel sounds.] Extremities: [No clubbing, no edema, no cyanosis.] Neurological Exam: [No focal neurologic deficit.] Alert and oriented 3. Psychiatric: Normal mood affect and normal mental status examination. Skin: No rashes. Lymphatics: No lymphadenopathy. - Labs CBC & Chem 7: 10/06/19 04:35 10/06/19 04:35 Labs: Abnormal Lab Results - Last 24 Hours (Table) 10/05/19 10/05/19 10/05/19 Range/Units 11:57 16:53 19:59 RBC (3.80-5.40) m/uL Hgb (11.4-16.0) gm/dL RDW (11.5-15.5) % Neutrophils # (1.3-7.7) k/uL Lymphocytes # (1.0-4.8) k/uL Carbon Dioxide (22-30) mmol/L BUN (7-17) mg/dL Creatinine (0.52-1.04) mg/dL Glucose (74-99) mg/dL POC Glucose (mg/dL) 112 H 141 H 151 H (75-99) mg/dL Alkaline Phosphatase (38-126) U/L Total Protein (6.3-8.2) g/dL Albumin (3.5-5.0) g/dL 10/06/19 10/06/19 10/06/19 Range/Units 04:35 04:35 06:27 RBC 3.64 L (3.80-5.40) m/uL Hgb 10.5 L (11.4-16.0) gm/dL RDW 15.8 H (11.5-15.5) % Neutrophils # 8.9 H (1.3-7.7) k/uL Lymphocytes # 0.3 L (1.0-4.8) k/uL Carbon Dioxide 39 H (22-30) mmol/L BUN 19 H (7-17) mg/dL Creatinine 0.26 L (0.52-1.04) mg/dL Glucose 122 H (74-99) mg/dL POC Glucose (mg/dL) 109 H (75-99) mg/dL Alkaline Phosphatase 146 H (38-126) U/L Total Protein 5.1 L (6.3-8.2) g/dL Albumin 2.8 L (3.5-5.0) g/dL Microbiology - Last 24 Hours (Table) 10/03/19 14:15 Blood Culture - Preliminary Blood No Growth after 48 hours 10/03/19 14:21 Gram Stain - Final Sputum Sputum Culture - Final Assessment and Plan Assessment: Impression: Acute on chronic hypoxic and hypercapnic respiratory failure secondary to acute exacerbation of COPD, secondary to influenza tracheobronchitis. Altered mental status secondary to metabolic encephalopathy, resolved. Severe advanced COPD with chronic hypoxic respiratory failure, oxygen dependent. Acute influenza A infection/bronchitis. Chronic hepatitis C Generalized anxiety disorder Paroxysmal atrial fibrillation, no anticoagulation because of her previous GI bleeding. History of irritable bowel syndrome History of pseudomonal infection, pulmonary tracheobronchitis, Osteoporosis. Moderate to severe mitral regurgitation but preserved LV function. Tobacco dependence syndrome. Recommendation: Continue present supportive care measures. Continue oxygen. Continue BiPAP as noted above. As needed. Continue antibiotics. Continue Tamiflu. Continue GI and DVT prophylaxis. Continue incentive spirometry. Continue pain medications Advanced diet as tolerated. Transfer patient out of the ICU to a regular medical floor. We'll continue to follow. Time with Patient: Less than 30
--- NOTE | 2019-10-06 11:08 | P.PN ---
Subjective Progress Note Date: 10/06/19 This 64-year-old female with a known history of COPD, chronic hypoxic respiratory failure home O2 dependent, hypothyroidism, chronic back pain, paroxysmal atrial fibrillation, chronic hepatitis C infection, kidney stones. History was obtained from ER report and patient's . She is currently intubated and sedated. And in the ICU. Per her she had been complaining of some shortness of breath and cough over the last several days. She had also recently been at [facility] for COPD exacerbation and was discharged on steroids. He also reports that she was complaining of back pain and thought that it may be her kidney stone bothering her. He believes that she may have taken extra pain medications. The reports that he was trying to get his to the core to bring her to the hospital. While she was walking she started to sway and then fell to the ground and hit her head. He could not get her to wake up. He called EMS. She was found at home by EMS with oxygen s aturation 70% and on 2 L nasal cannula. At that time she was minimally responsive. And had developed bag mask ventilation to transport. Patient was intubated on arrival to ER physician. She'll be admitted to the ICU. Dr. Raphael has been consulted for ICU and vent management. EKG normal sinus rhythm. Chest x-ray negative for any acute pulmonary process. Influenza A is positive. She has evidence of a UTI. She's given Rocephin in the ER and started on Tamiflu. Lactic acid elevated at 5.4. Drug screen is positive for opiates Oxycodone and benzodiazepine. On 10/05/2019 patient was seen and examined in the ICU she is alert and oriented 3 in no apparent distress she is still complaining of shortness of breath and complaining of severe pain in her back otherwise she denies any complaints, there is no fever or chills no headache or dizziness no chest pain no nausea or vomiting no abdominal pain no diarrhea no burning with urination no frequency or urgency no hematuria, patient is off BiPAP and is maintained on oxygen via nasal cannula 2 L/m On 10/06/2019 patient remains in the intensive care unit. Patient was extubated to 10/05/2019. Patient is alert and oriented 3 currently on 2 L nasal cannula. Patient concerned about kidney stone. Will consult urology services. Patient is still short of breath with activity. Patient denies chest pain. Patient denies nausea vomiting or diarrhea. Patient denies any urinary burning or frequency Objective - Vital Signs Vital signs: Vital Signs Temp 98.5 F 10/06/19 08:00 Pulse 70 10/06/19 10:52 Resp 33 H 10/06/19 09:00 BP 130/77 10/06/19 09:00 Pulse Ox 91 L 10/06/19 09:00 Intake & Output 10/05/19 10/06/19 10/06/19 18:59 06:59 18:59 Intake Total 1245 513 69 Output Total 410 425 110 Balance 835 88 -41 Weight 54.3 kg Intake: IV 405 273 69 KVO 220 60 Sodium Chloride 0.9% 1, 405 20 000 ml @ 75 mls/hr IV . [id number] [facility] Rx#:[id number] pressure bag 33 9 Oral 840 240 Output: Urine 410 425 110 Other: Voiding Method Indwelling Catheter Indwelling Catheter Indwelling Catheter ABP, PAP, CO, CI - Last Documented Arterial Blood Pressure 168/61 - Exam Patient is alert and oriented 3 she is maintained on BiPAP at this time, she is able to communicate HEENT head normocephalic and atraumatic Neck is supple no JVD no goiter Chest exam reveals coarse crackles bilaterally no wheezing Cardiac exam reveals regular heart sounds no gallops no murmurs Abdomen is soft nontender no organomegaly Extremity exam reveals minimal edema no cyanosis or clubbing Neurological examination reveals no gross focal deficit - Labs CBC & Chem 7: 10/06/19 04:35 10/06/19 04:35 Labs: Abnormal Lab Results - Last 24 Hours (Table) 10/05/19 10/05/19 10/05/19 Range/Units 11:57 16:53 19:59 RBC (3.80-5.40) m/uL Hgb (11.4-16.0) gm/dL RDW (11.5-15.5) % Neutrophils # (1.3-7.7) k/uL Lymphocytes # (1.0-4.8) k/uL Carbon Dioxide (22-30) mmol/L BUN (7-17) mg/dL Creatinine (0.52-1.04) mg/dL Glucose (74-99) mg/dL POC Glucose (mg/dL) 112 H 141 H 151 H (75-99) mg/dL Alkaline Phosphatase (38-126) U/L Total Protein (6.3-8.2) g/dL Albumin (3.5-5.0) g/dL 10/06/19 10/06/19 10/06/19 Range/Units 04:35 04:35 06:27 RBC 3.64 L (3.80-5.40) m/uL Hgb 10.5 L (11.4-16.0) gm/dL RDW 15.8 H (11.5-15.5) % Neutrophils # 8.9 H (1.3-7.7) k/uL Lymphocytes # 0.3 L (1.0-4.8) k/uL Carbon Dioxide 39 H (22-30) mmol/L BUN 19 H (7-17) mg/dL Creatinine 0.26 L (0.52-1.04) mg/dL Glucose 122 H (74-99) mg/dL POC Glucose (mg/dL) 109 H (75-99) mg/dL Alkaline Phosphatase 146 H (38-126) U/L Total Protein 5.1 L (6.3-8.2) g/dL Albumin 2.8 L (3.5-5.0) g/dL Microbiology - Last 24 Hours (Table) 10/03/19 14:15 Blood Culture - Preliminary Blood No Growth after 48 hours 10/03/19 14:21 Gram Stain - Final Sputum Sputum Culture - Final Assessment and Plan Assessment: 1. Acute hypoxic and hypercapnic respiratory failure requiring to be placed on mechanical ventilation. Patient is currently intubated and sedated. Patient has been extubated on 10/05/2019 2. Unresponsiveness and acute respiratory failure possibly related to pain medication overdose. It is unclear exactly how much pain medication was taken. reports the patient may have taken extra pain medication for her back pain. Resolved 3. Influenza A positive. Patient started on Tamiflu 4. UTI: Continue Rocephin 1 g daily. Check urine culture 5. Sepsis present on admission patient's hypoxic and tachycardic. Blood culture pending. Continue with antibiotics and IV fluids 6. Elevated LFTs: Possibly related to patient's chronic hepatitis C. Patient also has a known liver lesion is stable. And is followed by GI service. 7. History of paroxysmal atrial fibrillation not on anticoagulation due to history of GI bleed 8. History of hyperthyroidism maintained on Tapazole 9. History of chronic low back pain 10. History of COPD and evidence of acute exacerbation. Patient started on IV steroids in ER 11. History of kidney stone status post lithotripsy. Neurology services have been consulted GI prophylaxis Protonix and DVT prophylaxis Lovenox I performed an examination of the patient and discussed their management with the Nurse Practitioner. I have reviewed the Nurse Practitioner's notes and agree with the documented findings and plan of care
[2019-10-06 11:49] LABS: Glucose,Whole Blood 140 mg/dL (75-99)
[2019-10-06 17:11] LABS: Glucose,Whole Blood 176 mg/dL (75-99)
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
[2019-10-06 20:32] LABS: Glucose,Whole Blood 163 mg/dL (75-99)
--- NOTE | 2019-10-06 20:33 | XR ---
EXAMINATION TYPE: XR KUB DATE OF EXAM: 10/06/2019 COMPARISON: 09/12/2019 HISTORY: Renal calculi. Pain. TECHNIQUE: Single view FINDINGS: There is no sign of intestinal obstruction or pneumoperitoneum. Fecal pattern is normal. Th ere is no evidence of a mass. The presence or absence of renal calculi difficult to evaluate with a f ecal material overlying the kidneys. There is some blunting of the left costophrenic angle. IMPRESSION: Nonacute abdomen. Possible small calculi in the left kidney. Mild lumbar levoscoliosis. T here is probably some new atelectasis left lower lobe compared to last exam.
[2019-10-06] MEDS: PRAMIPEXOLE 0.5 MG TAB PO SCH (22:05)
[2019-10-06] MEDS: MONTELUKAST 10 MG TAB PO SCH (22:05)
[2019-10-06] MEDS: DILTIAZEM CD 240 MG CAP.ER.24H PO SCH (22:39)
[2019-10-07] MEDS: methylPREDNISolone SOD SUCCI 125 MG/2 ML VIAL IV SCH ×4 (00:31→18:03)
[2019-10-07] MEDS: IPRATROPIUM-ALBUTEROL 3 ML NEB INHALATION PRN ×2 (00:50→23:24)
[2019-10-07] MEDS: HYDROcodone/APAP 10-325MG 1 EACH TAB PO PRN ×5 (02:02→21:44)
[2019-10-07 05:00] LABS: Basophils % (A) 0 %; Eosinophils % (A) 0 %; HCT 32.9 % (34.0-46.0); HGB 10.1 gm/dL (11.4-16.0); Hypochromasia Moderate; Lymphocytes # (A) 0.2 k/uL (1.0-4.8); Lymphocytes % (A) 2 %; MCH 28.8 pg (25.0-35.0); MCHC 30.8 g/dL (31.0-37.0); MCV 93.5 fL (80.0-100.0); Mean Platelet Volume 8.1; Monocytes # (A) 0.6 k/uL (0-1.0); Monocytes % (A) 6 %; Neutrophils # (A) 8.7 k/uL (1.3-7.7); Neutrophils % (A) 91 %; Platelet Count 147 k/uL (150-450); RBC 3.52 m/uL (3.80-5.40); RDW 15.6 % (11.5-15.5); WBC 9.5 k/uL (3.8-10.6)
[2019-10-07 05:25] LABS: ALT 31 U/L (4-34); AST 23 U/L (14-36); African American GFR (CKD) >90 (>60 ml/min/1.73 sqM); Albumin 2.8 g/dL (3.5-5.0); Alkaline Phosphatase 135 U/L (38-126); Blood Urea Nitrogen 18 mg/dL (7-17); Calcium 8.5 mg/dL (8.4-10.2); Chloride 96 mmol/L (98-107); Glucose 146 mg/dL (74-99); Non-African American GFR(CKD) >90 (>60 ml/min/1.73 sqM); Potassium 4.3 mmol/L (3.5-5.1); Sodium 139 mmol/L (137-145); Total Bilirubin 0.3 mg/dL (0.2-1.3); Total Protein 5.2 g/dL (6.3-8.2)
[2019-10-07 05:31] LABS: Anion Gap 2 mmol/L
[2019-10-07 05:44] LABS: Carbon Dioxide 41 mmol/L (22-30)
[2019-10-07] MEDS: IPRATROPIUM-ALBUTEROL 3 ML NEB INHALATION SCH ×4 (06:07→20:28)
[2019-10-07 06:30] LABS: Glucose,Whole Blood 141 mg/dL (75-99)
[2019-10-07] MEDS: INSULIN ASPART (NovoLOG) 100 UNIT/ML VIAL SQ SCH ×4 (07:09→21:45)
--- NOTE | 2019-10-07 08:07 | XR ---
EXAMINATION TYPE: XR chest 1V portable DATE OF EXAM: 10/07/2019 Comparison: 10/06/2019 Clinical History: 64-year-old female Tube placement Findings: Left IJ CVC tip in the right atrium. Heart is unenlarged. Atherosclerotic arch calcifications. Patchy bibasilar opacities remain. Similar focal nodular density at the left base. Impression: Continued patchy bibasilar infiltrates. Similar nodular density at the left base. Follow-up to ensure clearance after treatment.
--- NOTE | 2019-10-07 08:39 | US ---
EXAMINATION TYPE: US kidneys/renal and bladder DATE OF EXAM: 10/07/2019 COMPARISON: CT shows multiple left kidney stones CLINICAL HISTORY: 64-year-old female Renal calculi. TECHNIQUE: Multiple sonographic images of the kidneys and bladder are obtained. FINDINGS: EXAM MEASUREMENTS: Right Kidney: 10.7 x 4.1 x 5.1 cm Left Kidney: 11.4 x 4.9 x 4.7 cm SPRING FITTER HELPER NOTES: ICU patient unable to cooperate with examiner. Technically difficult study. Right Kidney: No hydronephrosis, somewhat limited visualization Left Kidney: No hydronephrosis, somewhat limited visualization, unable to see kidney stones by today' s ultrasound, this may be due to limitations Bladder: Dependent echoes, likely debris Incidental finding of fluid in the cul de sac. IMPRESSION: 1. Technically difficult and limited exam. 2. No hydronephrosis. 3. Dependent echoes within the bladder suggesting debris. Correlate to exclude UTI. 4. Incidental mild cul-de-sac free fluid/ascites. Clinically correlate in this postmenopausal patient .
[2019-10-07] MEDS: FUROSEMIDE 20 MG TAB PO SCH (09:23)
[2019-10-07] MEDS: PANTOPRAZOLE 40 MG/10 ML VIAL IVP SCH (09:24)
[2019-10-07] MEDS: METHIMAZOLE 5 MG TAB PO SCH (09:25)
[2019-10-07] MEDS: OSELTAMIVIR 75 MG CAP PO SCH ×2 (09:27→21:44)
[2019-10-07] MEDS: POTASSIUM CHLORIDE ER 10 MEQ TAB.ER.PRT PO SCH (09:28)
[2019-10-07] MEDS: TAMSULOSIN 0.4 MG CAP.ER.24H PO SCH (09:32)
--- NOTE | 2019-10-07 11:16 | P.PN ---
Subjective Progress Note Date: 10/07/19 Principal diagnosis: Acute exacerbation of COPD with acute hypoxic and hypercapnic respiratory failure and acute influenza bronchitis 65-year-old female patient with known history of advanced COPD and chronic hypoxic respiratory failure came into the emergency department unresponsive and respiratory failure. I was able to obtain information from emergency department reports. The patient was already intubated by the time she arrived to the intensive care unit. I was asked to evaluate this patient upon the request of the primary care physician. Apparently the patient has been complaining of worsening shortness of breath and cough over the past several days. She was re cently at for an acute COPD exacerbation which she was discharged home on a prednisone burst taper. She will also complaining of some back pain related to kidney stones. She was apparently given some pain medication and were not sure if she is taken his medication increased quant ities. The reports that the patient was short of breath and he was trying to get his to come in to the hospital. While walking, she became unsteady and she fell on the ground and hit her head. He apparently was unable to get her to wake. He called EMS and EMS found this patient at home with a pulse of 70% on 2 L of oxygen by nasal cannula. At that time she was minimally responsive. She was bagged and transported to the hospital. The patient was intubated upon arrival by the ED doctor. Subsequently, she was started on sedation with propofol which is running at 25 g per KG per minute. She came into the intensive care unit on an assist-control mode of ventilation at the r ate of 15 with an FiO2 of 60% and a PEEP of 5 and tidal volume of 400. She did checked positive for influenza A and she was placed in droplet isolation. She does have electric stop 5.4. Urine tox is positive for opiates and benzodiazepines. S x-ray reveals COPD and ET tube is in a good location. The CAT scan of the brain showed no acute abnormality. There is chronic and symmetric changes in the mastoid air cells. Nonspecific white matter demyelination and age-related atrophy is also seen. The post intubation blood gas showed a pH of 7.36 with a pCO2 of 71 and a pO2 of more than 400. This was on FiO2 of 100%. She is on no pressors. BP is 124/75 with a pulse of 85. She is moving all 4 extremities upon painful stimulation although she is sedated. He was started on Tamiflu. She was started on empiric antibiotic coverage with Rocephin. DuoNeb the right since of the clock and IV Solu Medrol 60 mg every 6 hours. Peak air pressures around 39 with a static pressure of 19. On today's evaluation of 10/04/2019 on seeing the patient for a follow-up. She is relatively awake even while being on a propofol of 60 mcg/kg per minute. She is following some simple commands. There is improvement in her overall pulmonary status. She is less bronchospastic and wheezy. Peak airway pressures down to 23. She is an assist-control mode at the rate of 60 with a tidal volume 400 and FiO2 of 40% with a PEEP of 5. Despite her being on sedation pH is following some simple commands. Her blood gas showed a pH of 7.4 with a pCO2 of 52 and pO2 of 96. Her white cell count is at 7.5. Sputum Gram stain and culture was collected. She was started on Tamiflu regarding influenza A and she also is on Rocephin as an empiric antibiotic coverage. She is better in terms of her blood pressure control. She is getting on and off morphine and hydralazine for blood pressure control. She is on IV Solu-Medrol. No other significant events overnight. No fever. No diarrhea. On 10/05/2019 the patient is awake and alert following commands and answering questions. Overnight, the patient became a bit more lethargic. We repeated the blood gases and there was no significant respiratory acidosis and was essentially consistent with chronic hypercapnic respiratory failure. I put on a BiPAP at a pressure of 14/5 cm of water and she did very well and this morning she is on oxygen at 2 L per minute nasal cannula. Chest x-ray is showing some chronic scarring and some limited infiltration of the lung bases. She remains on Tamiflu. She remains on IV Solu-Medrol. She remains on IV Rocephin. No altered mentation. Some limited cough and congestion. Without any significant sputum production. She did have some soft diet yesterday/clear liquids. She is weak. She is having chronic pain pH is back on Likely 10 one tablet every 4 hours. No fever. No chills. No nausea. No vomiting. No other significant events overnight. Patient was reevaluated today on 10/06/2019, patient remains in the ICU, she is on 3 L nasal cannula, she has BiPAP at bedside, but she looks great. Patient t ells me that she feels much better, breathing a lot easier. Has been intermittently on BiPAP especially at night with IPAP of 14 and EPAP of 5. Chest x-ray is showing right lower lobe atelectasis and possibly a small effusion. No clear-cut evidence of pneumonia. WBC count is 9.7 hemoglobin is 10.5 electrolytes are normal bicarb is 39 BUN is 19 and creatinine 0.26. Antibiotics maya, patient remains on Rocephin. She is also on bronchodilators, steroids/Solu-Medrol, and she is on Tamiflu. Remains on GI and DVT prophylaxis. Patient was reevaluated today on 10/07/19, remains in the ICU, she is an overflow. She has BiPAP at bedside set at 35% FiO2, IPAP of 14 and EPAP of 5. Patient did not use it last night, presently on 3 L nasal cannula. Relatively asymptomatic, feeling better, breathing a lot easier. Patient remains on droplet precautions, remains on antibiotics and finished her course of Tamiflu. Remains on GI and DVT prophylaxis. She is also on bronchodilators and steroids. CBC is normal index was abnormal renal profile is normal. Objective - Vital Signs Vital signs: Vital Signs Temp 98.8 F 10/06/19 21:30 Pulse 84 10/07/19 08:00 Resp 24 10/07/19 08:00 BP 148/81 10/07/19 08:00 Pulse Ox 94 L 10/07/19 08:00 Intake & Output 10/06/19 10/07/19 10/07/19 18:59 06:59 18:59 Intake Total 309 40 80 Output Total 235 200 320 Balance 74 -160 -240 Intake: IV 69 40 80 KVO 60 40 80 pressure bag 9 Oral 240 Output: Urine 235 200 320 Other: Voiding Method Indwelling Catheter Bedpan Incontinent # Voids 2 ABP, PAP, CO, CI - Last Documented Arterial Blood Pressure 168/61 - Exam Physical Exam: Revealed a 64-year-old female in no distress, on 3 L nasal cannula. Head: Atraumatic, normocephalic. HEENT:[Neck is supple.] [No neck masses.] [No thyromegaly.] [No JVD.] PERRLA, EOMI, no icterus, moist mucous membranes. Chest: [Clear throughout diminished breath sounds at the bases, minimal wheezing on forced expiratory maneuver only. Cardiac Exam: [Normal S1 and S2, no S3 gallop, no murmur.] Abdomen: [Soft, nontender, no megaly, no rebound, no guarding, normal bowel sounds.] Extremities: [No clubbing, no edema, no cyanosis.] Neurological Exam: [No focal neurologic deficit.] Alert and oriented 3. Psychiatric: Normal mood affect and normal mental status examination. Skin: No rashes. Lymphatics: No lymphadenopathy. - Labs CBC & Chem 7: 10/07/19 04:36 10/07/19 04:36 Labs: Abnormal Lab Results - Last 24 Hours (Table) 10/06/19 10/06/19 10/06/19 Range/Units 11:47 17:09 20:30 RBC (3.80-5.40) m/uL Hgb (11.4-16.0) gm/dL Hct (34.0-46.0) % MCHC (31.0-37.0) g/dL RDW (11.5-15.5) % Plt Count (150-450) k/uL Neutrophils # (1.3-7.7) k/uL Lymphocytes # (1.0-4.8) k/uL Chloride (98-107) mmol/L Carbon Dioxide (22-30) mmol/L BUN (7-17) mg/dL Creatinine (0.52-1.04) mg/dL Glucose (74-99) mg/dL POC Glucose (mg/dL) 140 H 176 H 163 H (75-99) mg/dL Alkaline Phosphatase (38-126) U/L Total Protein (6.3-8.2) g/dL Albumin (3.5-5.0) g/dL 10/07/19 10/07/19 10/07/19 Range/Units 04:36 04:36 06:29 RBC 3.52 L (3.80-5.40) m/uL Hgb 10.1 L (11.4-16.0) gm/dL Hct 32.9 L (34.0-46.0) % MCHC 30.8 L (31.0-37.0) g/dL RDW 15.6 H (11.5-15.5) % Plt Count 147 L (150-450) k/uL Neutrophils # 8.7 H (1.3-7.7) k/uL Lymphocytes # 0.2 L (1.0-4.8) k/uL Chloride 96 L (98-107) mmol/L Carbon Dioxide 41 H* (22-30) mmol/L BUN 18 H (7-17) mg/dL Creatinine 0.30 L (0.52-1.04) mg/dL Glucose 146 H (74-99) mg/dL POC Glucose (mg/dL) 141 H (75-99) mg/dL Alkaline Phosphatase 135 H (38-126) U/L Total Protein 5.2 L (6.3-8.2) g/dL Albumin 2.8 L (3.5-5.0) g/dL Microbiology - Last 24 Hours (Table) 10/03/19 14:15 Blood Culture - Preliminary Blood No Growth after 72 hours Assessment and Plan Assessment: Impression: Acute on chronic hypoxic and hypercapnic respiratory failure secondary to acute exacerbation of COPD, secondary to influenza tracheobronchitis. Altered mental status secondary to metabolic encephalopathy, resolved. Severe advanced COPD with chronic hypoxic respiratory failure, oxygen dependent. Acute influenza A infection/bronchitis. Chronic hepatitis C Generalized anxiety disorder Paroxysmal atrial fibrillation, no anticoagulation because of her previous GI bleeding. History of irritable bowel syndrome History of pseudomonal infection/pulmonary in nature. Osteoporosis. Moderate to severe mitral regurgitation but preserved LV function. Tobacco dependence syndrome. Alpha hemolytic strep bacteremia on presentation, resolved. Recommendation: Continue present supportive care measures. Continue oxygen. Continue BiPAP Continue antibiotics. Continue Tamiflu. Until a full 5 day course is finished. Continue GI and DVT prophylaxis. Continue incentive spirometry. Continue pain medications Advanced diet as tolerated. auto specialty services manager to evaluate, and address discharge planning. Transfer out of the ICU today once a bed becomes available Time with Patient: Less than 30
--- NOTE | 2019-10-07 11:36 | P.PN ---
Subjective Progress Note Date: 10/07/19 This 64-year-old female with a known history of COPD, chronic hypoxic respiratory failure home O2 dependent, hypothyroidism, chronic back pain, paroxysmal atrial fibrillation, chronic hepatitis C infection, kidney stones. History was obtained from ER report and patient's . She is currently intubated and sedated. And in the ICU. Per her she had been complaining of some shortness of breath and cough over the last several days. She had also recently been at [facility] for COPD exacerbation and was discharged on steroids. He also reports that she was complaining of back pain and thought that it may be her kidney stone bothering her. He believes that she may have taken extra pain medications. The reports that he was trying to get his to the core to bring her to the hospital. While she was walking she started to sway and then fell to the ground and hit her head. He could not get her to wake up. He called EMS. She was found at home by EMS with oxygen s aturation 70% and on 2 L nasal cannula. At that time she was minimally responsive. And had developed bag mask ventilation to transport. Patient was intubated on arrival to ER physician. She'll be admitted to the ICU. Dr. Raphael has been consulted for ICU and vent management. EKG normal sinus rhythm. Chest x-ray negative for any acute pulmonary process. Influenza A is positive. She has evidence of a UTI. She's given Rocephin in the ER and started on Tamiflu. Lactic acid elevated at 5.4. Drug screen is positive for opiates Oxycodone and benzodiazepine. On 10/05/2019 patient was seen and examined in the ICU she is alert and oriented 3 in no apparent distress she is still complaining of shortness of breath and complaining of severe pain in her back otherwise she denies any complaints, there is no fever or chills no headache or dizziness no chest pain no nausea or vomiting no abdominal pain no diarrhea no burning with urination no frequency or urgency no hematuria, patient is off BiPAP and is maintained on oxygen via nasal cannula 2 L/m On 10/06/2019 patient remains in the intensive care unit. Patient was extubated to 10/05/2019. Patient is alert and oriented 3 currently on 2 L nasal cannula. Patient concerned about kidney stone. Will consult urology services. Patient is still short of breath with activity. Patient denies chest pain. Patient denies nausea vomiting or diarrhea. Patient denies any urinary burning or frequency On 10/07/2019 patient is alert and oriented 3. Patient remains on 2 L nasal cannula. Patient reports improvement with her shortness of breath. Patient remains on IV steroids and Rocephin antibiotic. Also currently receiving Ta miflu. Urology services are following. At this time patient denies chest pain. Patient denies nausea vomiting or diarrhea. Patient denies any urinary burning or frequency Objective - Vital Signs Vital signs: Vital Signs Temp 98.8 F 10/06/19 21:30 Pulse 84 10/07/19 08:00 Resp 24 10/07/19 08:00 BP 148/81 10/07/19 08:00 Pulse Ox 94 L 10/07/19 08:00 Intake & Output 10/06/19 10/07/19 10/07/19 18:59 06:59 18:59 Intake Total 309 40 80 Output Total 235 200 320 Balance 74 -160 -240 Intake: IV 69 40 80 KVO 60 40 80 pressure bag 9 Oral 240 Output: Urine 235 200 320 Other: Voiding Method Indwelling Catheter Bedpan Incontinent # Voids 2 ABP, PAP, CO, CI - Last Documented Arterial Blood Pressure 168/61 - Exam Patient is alert and oriented 3 she is maintained on BiPAP at this time, she is able to communicate HEENT head normocephalic and atraumatic Neck is supple no JVD no goiter Chest exam reveals coarse crackles bilaterally no wheezing Cardiac exam reveals regular heart sounds no gallops no murmurs Abdomen is soft nontender no organomegaly Extremity exam reveals minimal edema no cyanosis or clubbing Neurological examination reveals no gross focal deficit - Labs CBC & Chem 7: 10/07/19 04:36 10/07/19 04:36 Labs: Abnormal Lab Results - Last 24 Hours (Table) 10/06/19 10/06/19 10/06/19 Range/Units 11:47 17:09 20:30 RBC (3.80-5.40) m/uL Hgb (11.4-16.0) gm/dL Hct (34.0-46.0) % MCHC (31.0-37.0) g/dL RDW (11.5-15.5) % Plt Count (150-450) k/uL Neutrophils # (1.3-7.7) k/uL Lymphocytes # (1.0-4.8) k/uL Chloride (98-107) mmol/L Carbon Dioxide (22-30) mmol/L BUN (7-17) mg/dL Creatinine (0.52-1.04) mg/dL Glucose (74-99) mg/dL POC Glucose (mg/dL) 140 H 176 H 163 H (75-99) mg/dL Alkaline Phosphatase (38-126) U/L Total Protein (6.3-8.2) g/dL Albumin (3.5-5.0) g/dL 10/07/19 10/07/19 10/07/19 Range/Units 04:36 04:36 06:29 RBC 3.52 L (3.80-5.40) m/uL Hgb 10.1 L (11.4-16.0) gm/dL Hct 32.9 L (34.0-46.0) % MCHC 30.8 L (31.0-37.0) g/dL RDW 15.6 H (11.5-15.5) % Plt Count 147 L (150-450) k/uL Neutrophils # 8.7 H (1.3-7.7) k/uL Lymphocytes # 0.2 L (1.0-4.8) k/uL Chloride 96 L (98-107) mmol/L Carbon Dioxide 41 H* (22-30) mmol/L BUN 18 H (7-17) mg/dL Creatinine 0.30 L (0.52-1.04) mg/dL Glucose 146 H (74-99) mg/dL POC Glucose (mg/dL) 141 H (75-99) mg/dL Alkaline Phosphatase 135 H (38-126) U/L Total Protein 5.2 L (6.3-8.2) g/dL Albumin 2.8 L (3.5-5.0) g/dL Microbiology - Last 24 Hours (Table) 10/03/19 14:15 Blood Culture - Preliminary Blood No Growth after 72 hours Assessment and Plan Assessment: 1. Acute hypoxic and hypercapnic respiratory failure requiring to be placed on mechanical ventilation. Patient is currently intubated and sedated. Patient has been extubated on 10/05/2019 2. Unresponsiveness and acute respiratory failure possibly related to pain medication overdose. It is unclear exactly how much pain medication was taken. reports the patient may have taken extra pain medication for her back pain. Resolved 3. Influenza A positive. Patient started on Tamiflu 4. UTI: Continue Rocephin 1 g daily. Check urine culture 5. Sepsis present on admission patient's hypoxic and tachycardic. Blood culture pending. Continue with antibiotics and IV fluids 6. Elevated LFTs: Possibly related to patient's chronic hepatitis C. Patient also has a known liver lesion is stable. And is followed by GI service. 7. History of paroxysmal atrial fibrillation not on anticoagulation due to history of GI bleed 8. History of hyperthyroidism maintained on Tapazole 9. History of chronic low back pain 10. History of COPD and evidence of acute exacerbation. Patient started on IV steroids in ER 11. History of kidney stone status post lithotripsy. urology services have been consulted. KUB x-ray and ultrasound of abdomen and bladder ordered per urology GI prophylaxis Protonix and DVT prophylaxis Lovenox I performed an examination of the patient and discussed their management with the Nurse Practitioner. I have reviewed the Nurse Practitioner's notes and agree with the documented findings and plan of care
[2019-10-07 11:55] LABS: Glucose,Whole Blood 124 mg/dL (75-99)
--- NOTE | 2019-10-07 13:41 | P.PN ---
Subjective Progress Note Date: 10/07/19 The patient recently underwent ureteroscopy laser lithotripsy to the left ureteral stone. The stent was removed last week. She ended up at [facility] with flank pain. A computed tomography scan suggested a small stone. The report was not with the patient upon recent office visit. KUB and ultrasound today does not identify any hydronephrosis or stone. At this juncture there is nothing urologic to do other than treat the possible urine infection. Objective - Vital Signs Vital signs: Vital Signs Temp 98.8 F 10/06/19 21:30 Pulse 70 10/07/19 11:57 Resp 24 10/07/19 08:00 BP 148/81 10/07/19 08:00 Pulse Ox 94 L 10/07/19 08:00 Intake & Output 10/06/19 10/07/19 10/07/19 18:59 06:59 18:59 Intake Total 309 40 80 Output Total 235 200 320 Balance 74 -160 -240 Intake: IV 69 40 80 KVO 60 40 80 pressure bag 9 Oral 240 Output: Urine 235 200 320 Other: Voiding Method Indwelling Catheter Bedpan Incontinent # Voids 2 ABP, PAP, CO, CI - Last Documented Arterial Blood Pressure 168/61 - Labs CBC & Chem 7: 10/07/19 04:36 10/07/19 04:36 Labs: Abnormal Lab Results - Last 24 Hours (Table) 10/06/19 10/06/19 10/07/19 Range/Units 17:09 20:30 04:36 RBC 3.52 L (3.80-5.40) m/uL Hgb 10.1 L (11.4-16.0) gm/dL Hct 32.9 L (34.0-46.0) % MCHC 30.8 L (31.0-37.0) g/dL RDW 15.6 H (11.5-15.5) % Plt Count 147 L (150-450) k/uL Neutrophils # 8.7 H (1.3-7.7) k/uL Lymphocytes # 0.2 L (1.0-4.8) k/uL Chloride (98-107) mmol/L Carbon Dioxide (22-30) mmol/L BUN (7-17) mg/dL Creatinine (0.52-1.04) mg/dL Glucose (74-99) mg/dL POC Glucose (mg/dL) 176 H 163 H (75-99) mg/dL Alkaline Phosphatase (38-126) U/L Total Protein (6.3-8.2) g/dL Albumin (3.5-5.0) g/dL 10/07/19 10/07/19 10/07/19 Range/Units 04:36 06:29 11:54 RBC (3.80-5.40) m/uL Hgb (11.4-16.0) gm/dL Hct (34.0-46.0) % MCHC (31.0-37.0) g/dL RDW (11.5-15.5) % Plt Count (150-450) k/uL Neutrophils # (1.3-7.7) k/uL Lymphocytes # (1.0-4.8) k/uL Chloride 96 L (98-107) mmol/L Carbon Dioxide 41 H* (22-30) mmol/L BUN 18 H (7-17) mg/dL Creatinine 0.30 L (0.52-1.04) mg/dL Glucose 146 H (74-99) mg/dL POC Glucose (mg/dL) 141 H 124 H (75-99) mg/dL Alkaline Phosphatase 135 H (38-126) U/L Total Protein 5.2 L (6.3-8.2) g/dL Albumin 2.8 L (3.5-5.0) g/dL Microbiology - Last 24 Hours (Table) 10/03/19 14:15 Blood Culture - Preliminary Blood No Growth after 72 hours
[2019-10-07] MEDS: ENOXAPARIN 40 MG/0.4 ML SYRINGE SQ SCH (14:31)
[2019-10-07] MEDS: ONDANSETRON 4 MG/2 ML VIAL IVP PRN (18:08)
[2019-10-07 21:04] LABS: Glucose,Whole Blood 171 mg/dL (75-99)
[2019-10-07] MEDS: DILTIAZEM CD 240 MG CAP.ER.24H PO SCH (21:44)
[2019-10-07] MEDS: PRAMIPEXOLE 0.5 MG TAB PO SCH (21:44)
[2019-10-07] MEDS: MONTELUKAST 10 MG TAB PO SCH (21:44)
[2019-10-08] MEDS: methylPREDNISolone SOD SUCCI 125 MG/2 ML VIAL IV SCH ×2 (00:02→06:26)
[2019-10-08] MEDS: IPRATROPIUM-ALBUTEROL 3 ML NEB INHALATION PRN (03:32)
[2019-10-08] MEDS: HYDROcodone/APAP 10-325MG 1 EACH TAB PO PRN ×5 (04:01→20:22)
[2019-10-08] MEDS: ONDANSETRON 4 MG/2 ML VIAL IVP PRN (04:03)
[2019-10-08 06:45] LABS: Glucose,Whole Blood 151 mg/dL (75-99)
[2019-10-08] MEDS: IPRATROPIUM-ALBUTEROL 3 ML NEB INHALATION SCH ×4 (07:46→20:14)
[2019-10-08 08:20] LABS: Basophils % (A) 0 %; Eosinophils % (A) 0 %; HCT 34.8 % (34.0-46.0); HGB 10.8 gm/dL (11.4-16.0); Hypochromasia Moderate; Lymphocytes # (A) 0.1 k/uL (1.0-4.8); Lymphocytes % (A) 2 %; MCH 28.8 pg (25.0-35.0); MCV 92.9 fL (80.0-100.0); Mean Platelet Volume 7.9; Monocytes # (A) 0.3 k/uL (0-1.0); Monocytes % (A) 4 %; Neutrophils % (A) 93 %; Platelet Count 149 k/uL (150-450); RBC 3.75 m/uL (3.80-5.40); RDW 15.5 % (11.5-15.5); WBC 7.5 k/uL (3.8-10.6)
[2019-10-08 08:39] LABS: ALT 31 U/L (4-34); AST 25 U/L (14-36); African American GFR (CKD) >90 (>60 ml/min/1.73 sqM); Albumin 3.1 g/dL (3.5-5.0); Alkaline Phosphatase 136 U/L (38-126); Blood Urea Nitrogen 17 mg/dL (7-17); Calcium 8.5 mg/dL (8.4-10.2); Chloride 93 mmol/L (98-107); Glucose 159 mg/dL (74-99); Non-African American GFR(CKD) >90 (>60 ml/min/1.73 sqM); Potassium 3.8 mmol/L (3.5-5.1); Sodium 139 mmol/L (137-145); Total Bilirubin 0.6 mg/dL (0.2-1.3); Total Protein 5.5 g/dL (6.3-8.2)
--- NOTE | 2019-10-08 08:41 | P.PN ---
Subjective Progress Note Date: 10/08/19 On 10/08/2019 patient seen in follow-up on medical surgical floor. She is awake and alert, she is on 3 L of oxygen and the pulse ox of 92%, has not required BiPAP support overnight or yesterday, she had been transferred out of ICU sometime yesterday, she is doing very well, no acute events overnight, no worsening dyspnea, breathing is comfortable. Sounds reveal diminished breath sounds with no major rhonchi or wheezing. She is afebrile, she remains on Tamiflu and Rocephin for empiric antibiotic coverage. Last chest x-ray was done yesterday 10 07 2019 showing patchy bibasilar infiltrates likely related to atelectasis no clear indication of pneumonia. Renal ultrasound did not show hydronephrosis, urology services are following and no surgical intervention is indicated at this time, all cultures remain negative thus far. Objective - Vital Signs Vital signs: Vital Signs Temp 99.0 F 10/08/19 07:15 Pulse 92 10/08/19 08:00 Resp 18 10/08/19 07:15 BP 143/72 10/08/19 07:15 Pulse Ox 94 L 10/08/19 07:47 Intake & Output 10/07/19 10/08/19 10/08/19 18:59 06:59 18:59 Intake Total 160 Output Total 320 Balance -160 Intake: IV 160 KVO 160 Output: Urine 320 Other: Voiding Method Bedpan # Voids 3 1 ABP, PAP, CO, CI - Last Documented Arterial Blood Pressure 168/61 - Exam GENERAL EXAM: Alert, very pleasant, 64-year-old female, who appears older than stated age, currently on 3 L of oxygen with a pulse ox of 92% comfortable in no apparent distress. HEAD: Normocephalic/atraumatic. EYES: Normal reaction of pupils, equal size. Conjunctiva pink, sclera white. NOSE: Clear with pink turbinates. THROAT: No erythema or exudates. NECK: No masses, no JVD, no thyroid enlargement, no adenopathy. CHEST: No chest wall deformity. Symmetrical expansion. LUNGS: Diminished air entry with no crackles, wheeze, rhonchi or dullness. CVS: Regular rate and rhythm, normal S1 and S2, no gallops, no murmurs, no rubs ABDOMEN: Soft, nontender. No hepatosplenomegaly, normal bowel sounds, no guarding or rigidity. EXTREMITIES: No clubbing, no edema, no cyanosis, 2+ pulses and upper and lower extremities. MUSCULOSKELETAL: Muscle strength and tone normal. SPINE: No scoliosis or deformity SKIN: No rashes CENTRAL NERVOUS SYSTEM: Alert and oriented -3. No focal deficits, tone is normal in all 4 extremities. PSYCHIATRIC: Alert and oriented -3. Appropriate affect. Intact judgment and insight. - Labs CBC & Chem 7: 10/08/19 07:52 10/07/19 04:36 Labs: Abnormal Lab Results - Last 24 Hours (Table) 10/07/19 10/07/19 10/08/19 Range/Units 11:54 21:01 06:43 RBC (3.80-5.40) m/uL Hgb (11.4-16.0) gm/dL Plt Count (150-450) k/uL Lymphocytes # (1.0-4.8) k/uL POC Glucose (mg/dL) 124 H 171 H 151 H (75-99) mg/dL 10/08/19 Range/Units 07:52 RBC 3.75 L (3.80-5.40) m/uL Hgb 10.8 L (11.4-16.0) gm/dL Plt Count 149 L (150-450) k/uL Lymphocytes # 0.1 L (1.0-4.8) k/uL POC Glucose (mg/dL) (75-99) mg/dL Microbiology - Last 24 Hours (Table) 10/03/19 14:15 Blood Culture - Preliminary Blood No Growth after 96 hours 10/07/19 08:34 Urine Culture - Preliminary Urine,Clean Catch Assessment and Plan Plan: Assessment: Acute on chronic hypoxic and hypercapnic respiratory failure secondary to acute exacerbation of COPD, secondary to influenza tracheobronchitis. Altered mental status secondary to metabolic encephalopathy, resolved. Severe advanced COPD with chronic hypoxic respiratory failure, oxygen dependent. Acute influenza A infection/bronchitis. Chronic hepatitis C Generalized anxiety disorder Paroxysmal atrial fibrillation, no anticoagulation because of her previous GI bleeding. History of irritable bowel syndrome History of pseudomonal infection/pulmonary in nature. Osteoporosis. Moderate to severe mitral regurgitation but preserved LV function. Tobacco dependence syndrome. Alpha hemolytic strep bacteremia on presentation, resolved. Plan: Patient is doing well, did not require BiPAP support last night, she is on 3 L of oxygen, no worsening dyspnea, no major rhonchi or wheezing, continues on Tamiflu and Rocephin, no fever or chills, hemodynamically stable, no altered mentation, increase activity as tolerated, consult physical therapy. Obtain peripheral IV and discontinue left IJ triple-lumen central venous catheter. Yesterday chest x-ray has been reviewed showing bilateral atelectasis, no clear indication of pneumonia, we'll continue to follow and make further recommendations I performed a history & physical examination of the patient and discussed their management with my nurse practitioner, Vandana Tillman. I reviewed the nurse practitioner's note and agree with the documented findings and plan of care. Lung sounds are positive for diminished breath sounds. The findings and the impression was discussed with the patient. I attest to the documentation by the nurse practitioner. Time with Patient: Less than 30
[2019-10-08] MEDS: FUROSEMIDE 20 MG TAB PO SCH (08:42)
[2019-10-08] MEDS: TAMSULOSIN 0.4 MG CAP.ER.24H PO SCH (08:42)
[2019-10-08] MEDS: POTASSIUM CHLORIDE ER 10 MEQ TAB.ER.PRT PO SCH (08:42)
[2019-10-08] MEDS: METHIMAZOLE 5 MG TAB PO SCH (08:43)
[2019-10-08] MEDS: OSELTAMIVIR 75 MG CAP PO SCH (08:43)
[2019-10-08] MEDS: INSULIN ASPART (NovoLOG) 100 UNIT/ML VIAL SQ SCH ×4 (08:44→21:07)
[2019-10-08 08:45] LABS: Anion Gap 4 mmol/L
[2019-10-08] MEDS: ENOXAPARIN 40 MG/0.4 ML SYRINGE SQ SCH (08:45)
[2019-10-08 08:59] LABS: Carbon Dioxide 42 mmol/L (22-30)
[2019-10-08] MEDS: PANTOPRAZOLE 40 MG/10 ML VIAL IVP SCH (09:18)
[2019-10-08 11:36] LABS: Glucose,Whole Blood 176 mg/dL (75-99)
--- NOTE | 2019-10-08 14:23 | P.PN ---
Subjective Progress Note Date: 10/08/19 This 64-year-old female with a known history of COPD, chronic hypoxic respiratory failure home O2 dependent, hypothyroidism, chronic back pain, paroxysmal atrial fibrillation, chronic hepatitis C infection, kidney stones. History was obtained from ER report and patient's . She is currently intubated and sedated. And in the ICU. Per her she had been complaining of some shortness of breath and cough over the last several days. She had also recently been at [facility] for COPD exacerbation and was discharged on steroids. He also reports that she was complaining of back pain and thought that it may be her kidney stone bothering her. He believes that she may have taken extra pain medications. The reports that he was trying to get his to the core to bring her to the hospital. While she was walking she started to sway and then fell to the ground and hit her head. He could not get her to wake up. He called EMS. She was found at home by EMS with oxygen s aturation 70% and on 2 L nasal cannula. At that time she was minimally responsive. And had developed bag mask ventilation to transport. Patient was intubated on arrival to ER physician. She'll be admitted to the ICU. Dr. Raphael has been consulted for ICU and vent management. EKG normal sinus rhythm. Chest x-ray negative for any acute pulmonary process. Influenza A is positive. She has evidence of a UTI. She's given Rocephin in the ER and started on Tamiflu. Lactic acid elevated at 5.4. Drug screen is positive for opiates Oxycodone and benzodiazepine. On 10/05/2019 patient was seen and examined in the ICU she is alert and oriented 3 in no apparent distress she is still complaining of shortness of breath and complaining of severe pain in her back otherwise she denies any complaints, there is no fever or chills no headache or dizziness no chest pain no nausea or vomiting no abdominal pain no diarrhea no burning with urination no frequency or urgency no hematuria, patient is off BiPAP and is maintained on oxygen via nasal cannula 2 L/m On 10/06/2019 patient remains in the intensive care unit. Patient was extubated to 10/05/2019. Patient is alert and oriented 3 currently on 2 L nasal cannula. Patient concerned about kidney stone. Will consult urology services. Patient is still short of breath with activity. Patient denies chest pain. Patient denies nausea vomiting or diarrhea. Patient denies any urinary burning or frequency On 10/07/2019 patient is alert and oriented 3. Patient remains on 2 L nasal cannula. Patient reports improvement with her shortness of breath. Patient remains on IV steroids and Rocephin antibiotic. Also currently receiving Ta miflu. Urology services are following. At this time patient denies chest pain. Patient denies nausea vomiting or diarrhea. Patient denies any urinary burning or frequency On 10/08/2019 patient is alert and oriented 3. Patient maintained on 2 L nasal cannula. Patient does report improvement with shortness of breath. Patient remains on IV steroids and Rocephin antibiotic. Also currently getting Tamiflu for influenza A. No further surgical workup per urology services at this time patient complains of chronic back pain. Patient denies chest pain. Patient denies nausea vomiting or diarrhea. Patient denies any urinary burning or frequency Objective - Vital Signs Vital signs: Vital Signs Temp 99.0 F 10/08/19 07:15 Pulse 80 10/08/19 11:54 Resp 18 10/08/19 09:25 BP 143/72 10/08/19 07:15 Pulse Ox 94 L 10/08/19 07:47 Intake & Output 10/07/19 10/08/19 10/08/19 18:59 06:59 18:59 Intake Total 160 Output Total 320 Balance -160 Intake: IV 160 KVO 160 Output: Urine 320 Other: Voiding Method Bedpan # Voids 3 1 1 ABP, PAP, CO, CI - Last Documented Arterial Blood Pressure 168/61 - Exam Patient is alert and oriented 3 she is maintained on BiPAP at this time, she is able to communicate HEENT head normocephalic and atraumatic Neck is supple no JVD no goiter Chest exam reveals coarse crackles bilaterally no wheezing Cardiac exam reveals regular heart sounds no gallops no murmurs Abdomen is soft nontender no organomegaly Extremity exam reveals minimal edema no cyanosis or clubbing Neurological examination reveals no gross focal deficit - Labs CBC & Chem 7: 10/08/19 07:52 10/08/19 07:52 Labs: Abnormal Lab Results - Last 24 Hours (Table) 10/07/19 10/08/19 10/08/19 Range/Units 21:01 06:43 07:52 RBC 3.75 L (3.80-5.40) m/uL Hgb 10.8 L (11.4-16.0) gm/dL Plt Count 149 L (150-450) k/uL Lymphocytes # 0.1 L (1.0-4.8) k/uL Chloride (98-107) mmol/L Carbon Dioxide (22-30) mmol/L Creatinine (0.52-1.04) mg/dL Glucose (74-99) mg/dL POC Glucose (mg/dL) 171 H 151 H (75-99) mg/dL Alkaline Phosphatase (38-126) U/L Total Protein (6.3-8.2) g/dL Albumin (3.5-5.0) g/dL 10/08/19 10/08/19 Range/Units 07:52 11:32 RBC (3.80-5.40) m/uL Hgb (11.4-16.0) gm/dL Plt Count (150-450) k/uL Lymphocytes # (1.0-4.8) k/uL Chloride 93 L (98-107) mmol/L Carbon Dioxide 42 H* (22-30) mmol/L Creatinine 0.30 L (0.52-1.04) mg/dL Glucose 159 H (74-99) mg/dL POC Glucose (mg/dL) 176 H (75-99) mg/dL Alkaline Phosphatase 136 H (38-126) U/L Total Protein 5.5 L (6.3-8.2) g/dL Albumin 3.1 L (3.5-5.0) g/dL Microbiology - Last 24 Hours (Table) 10/07/19 08:34 Urine Culture - Final Urine,Clean Catch 10/03/19 14:15 Blood Culture - Preliminary Blood No Growth after 96 hours Assessment and Plan Assessment: 1. Acute hypoxic and hypercapnic respiratory failure requiring to be placed on mechanical ventilation. Patient is currently intubated and sedated. Patient has been extubated on 10/05/2019 2. Unresponsiveness and acute respiratory failure possibly related to pain medication overdose. It is unclear exactly how much pain medication was taken. reports the patient may have taken extra pain medication for her back pain. Resolved 3. Influenza A positive. Patient started on Tamiflu 4. UTI: Continue Rocephin 1 g daily. Check urine culture 5. Sepsis present on admission patient's hypoxic and tachycardic. Blood culture pending. Continue with antibiotics and IV fluids 6. Elevated LFTs: Possibly related to patient's chronic hepatitis C. Patient also has a known liver lesion is stable. And is followed by GI service. 7. History of paroxysmal atrial fibrillation not on anticoagulation due to history of GI bleed 8. History of hyperthyroidism maintained on Tapazole 9. History of chronic low back pain 10. History of COPD and evidence of acute exacerbation. Patient started on IV steroids in ER 11. History of kidney stone status post lithotripsy. urology services have be en consulted. Per urology services KUB and ultrasound does not identify any hydronephrosis or stone. Per urology services no further intervention required continue treatment for UTI GI prophylaxis Protonix and DVT prophylaxis Lovenox I performed an examination of the patient and discussed their management with the Nurse Practitioner. I have reviewed the Nurse Practitioner's notes and agree with the documented findings and plan of care
[2019-10-08] MEDS: methylPREDNISolone SOD SUCCI 40 MG/ML 1 ML VIAL IV SCH ×2 (15:20→23:07)
[2019-10-08 16:44] LABS: Glucose,Whole Blood 133 mg/dL (75-99)
[2019-10-08 20:14] LABS: Glucose,Whole Blood 254 mg/dL (75-99)
[2019-10-08] MEDS: PRAMIPEXOLE 0.5 MG TAB PO SCH (20:23)
[2019-10-08] MEDS: MONTELUKAST 10 MG TAB PO SCH (20:23)
[2019-10-08] MEDS: DILTIAZEM CD 240 MG CAP.ER.24H PO SCH (20:23)
[2019-10-08] MEDS: ALBUTEROL NEBULIZED 2.5 MG/3 ML INHALATION PRN (23:31)
[2019-10-09] MEDS: ALBUTEROL NEBULIZED 2.5 MG/3 ML INHALATION PRN (05:19)
[2019-10-09 07:05] LABS: Glucose,Whole Blood 158 mg/dL (75-99)
[2019-10-09 07:19] LABS: Basophils % (A) 0 %; Eosinophils % (A) 0 %; Hypochromasia Marked; Lymphocytes # (A) 0.2 k/uL (1.0-4.8); Lymphocytes % (A) 2 %; MCH 28.8 pg (25.0-35.0); MCHC 30.5 g/dL (31.0-37.0); MCV 94.7 fL (80.0-100.0); Mean Platelet Volume 8.3; Monocytes # (A) 0.5 k/uL (0-1.0); Monocytes % (A) 4 %; Neutrophils # (A) 10.6 k/uL (1.3-7.7); Neutrophils % (A) 93 %; Platelet Count 131 k/uL (150-450); RDW 15.4 % (11.5-15.5); WBC 11.4 k/uL (3.8-10.6)
[2019-10-09 07:33] LABS: ALT 56 U/L (4-34); AST 53 U/L (14-36); African American GFR (CKD) >90 (>60 ml/min/1.73 sqM); Albumin 2.9 g/dL (3.5-5.0); Alkaline Phosphatase 121 U/L (38-126); Blood Urea Nitrogen 22 mg/dL (7-17); Calcium 8.4 mg/dL (8.4-10.2); Chloride 88 mmol/L (98-107); Glucose 159 mg/dL (74-99); Non-African American GFR(CKD) >90 (>60 ml/min/1.73 sqM); Sodium 139 mmol/L (137-145); Total Bilirubin 0.6 mg/dL (0.2-1.3); Total Protein 5.3 g/dL (6.3-8.2)
[2019-10-09 07:40] LABS: Anion Gap 3 mmol/L
[2019-10-09 07:48] LABS: Potassium 3.5 mmol/L (3.5-5.1)
[2019-10-09 07:49] LABS: Carbon Dioxide 48 mmol/L (22-30)
[2019-10-09] MEDS: IPRATROPIUM-ALBUTEROL 3 ML NEB INHALATION SCH ×4 (07:56→20:45)
[2019-10-09] MEDS: ENOXAPARIN 40 MG/0.4 ML SYRINGE SQ SCH (07:57)
[2019-10-09] MEDS: INSULIN ASPART (NovoLOG) 100 UNIT/ML VIAL SQ SCH ×4 (07:58→20:38)
[2019-10-09] MEDS: METHIMAZOLE 5 MG TAB PO SCH (07:58)
[2019-10-09] MEDS: methylPREDNISolone SOD SUCCI 40 MG/ML 1 ML VIAL IV SCH ×3 (07:58→23:08)
[2019-10-09] MEDS: POTASSIUM CHLORIDE ER 10 MEQ TAB.ER.PRT PO SCH (07:59)
[2019-10-09] MEDS: PANTOPRAZOLE 40 MG TABLET PO SCH (07:59)
[2019-10-09] MEDS: TAMSULOSIN 0.4 MG CAP.ER.24H PO SCH (07:59)
[2019-10-09] MEDS: FUROSEMIDE 20 MG TAB PO SCH (07:59)
[2019-10-09] MEDS ORDERED: HYDROcodone/APAP 10-325MG 1 EACH TAB PO PRN (08:40)
--- NOTE | 2019-10-09 08:48 | P.PN ---
Subjective Progress Note Date: 10/09/19 On 10/08/2019 patient seen in follow-up on medical surgical floor. She is awake and alert, she is on 3 L of oxygen and the pulse ox of 92%, has not required BiPAP support overnight or yesterday, she had been transferred out of ICU sometime yesterday, she is doing very well, no acute events overnight, no worsening dyspnea, breathing is comfortable. Sounds reveal diminished breath sounds with no major rhonchi or wheezing. She is afebrile, she remains on Tamiflu and Rocephin for empiric antibiotic coverage. Last chest x-ray was done yesterday 10 07 2019 showing patchy bibasilar infiltrates likely related to atelectasis no clear indication of pneumonia. Renal ultrasound did not show hydronephrosis, urology services are following and no surgical intervention is indicated at this time, all cultures remain negative thus far. On 2019 patient seen in follow-up on general medical floor, she seems more sedated today and yet patient is requesting another pain pill. Patient has been getting 10 mg of Point every 4 hours as needed, and IV morphine every 4 hours as needed and she seems to be lethargic, and sedated. Pulse ox is 86% on 3 L, hemodynamically patient is stable, mildly dyspneic with conversation, but no acute distress. Lung sounds reveal diminished breath sounds with scattered wheezing with forced exhale maneuver. Today's labs have been reviewed showing CO2 level up to 48, chloride was 88, BUN is 22 and creatinine 0.20. White count is 11.4, hemoglobin is 11.0. No fever or chills. Patient has completed a course of Tamiflu, and she continues on IV Rocephin for empiric antibiotic coverage, so far urine culture sputum culture and blood cultures have been negative. No fever or chills overnight. Objective - Vital Signs Vital signs: Vital Signs Temp 98.2 F 10/09/19 00:39 Pulse 80 10/09/19 08:09 Resp 16 10/09/19 00:39 BP 122/71 10/09/19 00:39 Pulse Ox 86 L 10/09/19 07:58 Intake & Output 10/08/19 10/09/19 10/09/19 18:59 06:59 18:59 Intake Total 50 Balance 50 Intake: Oral 50 Other: Voiding Method Bedpan # Voids 1 ABP, PAP, CO, CI - Last Documented Arterial Blood Pressure 168/61 - Exam GENERAL EXAM: Lethargic, but arousable,, 64-year-old female, mildly dyspneic with conversation, arouses to verbal stimulation, but appears to be sedated, appears older than stated age, currently on 3 L of oxygen with a pulse ox of 92% comfortable in no apparent distress. HEAD: Normocephalic/atraumatic. EYES: Normal reaction of pupils, equal size. Conjunctiva pink, sclera white. NOSE: Clear with pink turbinates. THROAT: No erythema or exudates. NECK: No masses, no JVD, no thyroid enlargement, no adenopathy. CHEST: No chest wall deformity. Symmetrical expansion. LUNGS: Diminished air entry with no crackles, expiratory wheezes on forced exhale maneuver, rhonchi or dullness. CVS: Regular rate and rhythm, normal S1 and S2, no gallops, no murmurs, no rubs ABDOMEN: Soft, nontender. No hepatosplenomegaly, normal bowel sounds, no guarding or rigidity. EXTREMITIES: No clubbing, no edema, no cyanosis, 2+ pulses and upper and lower extremities. MUSCULOSKELETAL: Muscle strength and tone normal. SPINE: No scoliosis or deformity SKIN: No rashes CENTRAL NERVOUS SYSTEM: Alert and oriented -3. No focal deficits, tone is normal in all 4 extremities. PSYCHIATRIC: Alert and oriented -3. Appropriate affect. Intact judgment and insight. - Labs CBC & Chem 7: 10/09/19 06:53 10/09/19 06:53 Labs: Abnormal Lab Results - Last 24 Hours (Table) 10/08/19 10/08/19 10/08/19 Range/Units 07:52 11:32 16:42 WBC (3.8-10.6) k/uL Hgb (11.4-16.0) gm/dL MCHC (31.0-37.0) g/dL Plt Count (150-450) k/uL Neutrophils # (1.3-7.7) k/uL Lymphocytes # (1.0-4.8) k/uL Chloride 93 L (98-107) mmol/L Carbon Dioxide 42 H* (22-30) mmol/L BUN (7-17) mg/dL Creatinine 0.30 L (0.52-1.04) mg/dL Glucose 159 H (74-99) mg/dL POC Glucose (mg/dL) 176 H 133 H (75-99) mg/dL AST (14-36) U/L ALT (4-34) U/L Alkaline Phosphatase 136 H (38-126) U/L Total Protein 5.5 L (6.3-8.2) g/dL Albumin 3.1 L (3.5-5.0) g/dL 10/08/19 10/09/19 10/09/19 Range/Units 20:11 06:53 06:53 WBC 11.4 H (3.8-10.6) k/uL Hgb 11.0 L (11.4-16.0) gm/dL MCHC 30.5 L (31.0-37.0) g/dL Plt Count 131 L (150-450) k/uL Neutrophils # 10.6 H (1.3-7.7) k/uL Lymphocytes # 0.2 L (1.0-4.8) k/uL Chloride 88 L (98-107) mmol/L Carbon Dioxide 48 H* (22-30) mmol/L BUN 22 H (7-17) mg/dL Creatinine 0.20 L (0.52-1.04) mg/dL Glucose 159 H (74-99) mg/dL POC Glucose (mg/dL) 254 H (75-99) mg/dL AST 53 H (14-36) U/L ALT 56 H (4-34) U/L Alkaline Phosphatase (38-126) U/L Total Protein 5.3 L (6.3-8.2) g/dL Albumin 2.9 L (3.5-5.0) g/dL 10/09/19 Range/Units 07:01 WBC (3.8-10.6) k/uL Hgb (11.4-16.0) gm/dL MCHC (31.0-37.0) g/dL Plt Count (150-450) k/uL Neutrophils # (1.3-7.7) k/uL Lymphocytes # (1.0-4.8) k/uL Chloride (98-107) mmol/L Carbon Dioxide (22-30) mmol/L BUN (7-17) mg/dL Creatinine (0.52-1.04) mg/dL Glucose (74-99) mg/dL POC Glucose (mg/dL) 158 H (75-99) mg/dL AST (14-36) U/L ALT (4-34) U/L Alkaline Phosphatase (38-126) U/L Total Protein (6.3-8.2) g/dL Albumin (3.5-5.0) g/dL Microbiology - Last 24 Hours (Table) 10/03/19 14:15 Blood Culture - Preliminary Blood No Growth after 120 hours 10/07/19 08:34 Urine Culture - Final Urine,Clean Catch Assessment and Plan Plan: Assessment: Acute on chronic hypoxic and hypercapnic respiratory failure secondary to acute exacerbation of COPD, secondary to influenza tracheobronchitis. Altered mental status secondary to metabolic encephalopathy, resolved. Severe advanced COPD with chronic hypoxic respiratory failure, oxygen dependent. Acute influenza A infection/bronchitis. Chronic hepatitis C Generalized anxiety disorder Paroxysmal atrial fibrillation, no anticoagulation because of her previous GI bleeding. History of irritable bowel syndrome History of pseudomonal infection/pulmonary in nature. Osteoporosis. Moderate to severe mitral regurgitation but preserved LV function. Tobacco dependence syndrome. Alpha hemolytic strep bacteremia on presentation, resolved. Plan: We'll place the patient back on BiPAP this morning as needed and at bedtime, will cut back on narcotics, discontinue IV morphine, and decrease the Point to home dose 10 mg 3 times daily as needed. Continue same dose IV steroids, breathing treatments, provided incentive spirometer, vital signs are stable, but patient appears to be more sedated on today's exam. We'll continue to follow I performed a history & physical examination of the patient and discussed their management with my nurse practitioner, Vandana Tillman. I reviewed the nurse practitioner's note and agree with the documented findings and plan of care. Lung sounds are positive for diminished breath sounds. The findings and the impression was discussed with the patient. I attest to the documentation by the nurse practitioner. Time with Patient: Less than 30
--- NOTE | 2019-10-09 10:24 | P.PN ---
Subjective Progress Note Date: 10/09/19 This 64-year-old female with a known history of COPD, chronic hypoxic respiratory failure home O2 dependent, hypothyroidism, chronic back pain, paroxysmal atrial fibrillation, chronic hepatitis C infection, kidney stones. History was obtained from ER report and patient's . She is currently intubated and sedated. And in the ICU. Per her she had been complaining of some shortness of breath and cough over the last several days. She had also recently been at [facility] for COPD exacerbation and was discharged on steroids. He also reports that she was complaining of back pain and thought that it may be her kidney stone bothering her. He believes that she may have taken extra pain medications. The reports that he was trying to get his to the core to bring her to the hospital. While she was walking she started to sway and then fell to the ground and hit her head. He could not get her to wake up. He called EMS. She was found at home by EMS with oxygen s aturation 70% and on 2 L nasal cannula. At that time she was minimally responsive. And had developed bag mask ventilation to transport. Patient was intubated on arrival to ER physician. She'll be admitted to the ICU. Dr. Raphael has been consulted for ICU and vent management. EKG normal sinus rhythm. Chest x-ray negative for any acute pulmonary process. Influenza A is positive. She has evidence of a UTI. She's given Rocephin in the ER and started on Tamiflu. Lactic acid elevated at 5.4. Drug screen is positive for opiates Oxycodone and benzodiazepine. On 10/05/2019 patient was seen and examined in the ICU she is alert and oriented 3 in no apparent distress she is still complaining of shortness of breath and complaining of severe pain in her back otherwise she denies any complaints, there is no fever or chills no headache or dizziness no chest pain no nausea or vomiting no abdominal pain no diarrhea no burning with urination no frequency or urgency no hematuria, patient is off BiPAP and is maintained on oxygen via nasal cannula 2 L/m On 10/06/2019 patient remains in the intensive care unit. Patient was extubated to 10/05/2019. Patient is alert and oriented 3 currently on 2 L nasal cannula. Patient concerned about kidney stone. Will consult urology services. Patient is still short of breath with activity. Patient denies chest pain. Patient denies nausea vomiting or diarrhea. Patient denies any urinary burning or frequency On 10/07/2019 patient is alert and oriented 3. Patient remains on 2 L nasal cannula. Patient reports improvement with her shortness of breath. Patient remains on IV steroids and Rocephin antibiotic. Also currently receiving Ta miflu. Urology services are following. At this time patient denies chest pain. Patient denies nausea vomiting or diarrhea. Patient denies any urinary burning or frequency On 10/08/2019 patient is alert and oriented 3. Patient maintained on 2 L nasal cannula. Patient does report improvement with shortness of breath. Patient remains on IV steroids and Rocephin antibiotic. Also currently getting Tamiflu for influenza A. No further surgical workup per urology services at this time patient complains of chronic back pain. Patient denies chest pain. Patient denies nausea vomiting or diarrhea. Patient denies any urinary burning or frequency On 10/09/2019 patient is alert and oriented 3. Discussed case with pulmonary team. Patient having elevated CO2 40 8P meds adjusted per pulmonary and BiPAP ordered. Patient is complaining of chronic pain. Patient maintained on home pain management regime. Concerns per pulmonary team in regards to oversedation and respiratory status. Patient denies any nausea vomiting or diarrhea. Patient denies any urinary burning or frequency Objective - Vital Signs Vital signs: Vital Signs Temp 98 F 10/09/19 08:20 Pulse 82 10/09/19 08:20 Resp 17 10/09/19 08:20 BP 126/72 10/09/19 08:20 Pulse Ox 96 10/09/19 08:20 Intake & Output 10/08/19 10/09/19 10/09/19 18:59 06:59 18:59 Intake Total 50 Balance 50 Intake: Oral 50 Other: Voiding Method Bedpan # Voids 1 ABP, PAP, CO, CI - Last Documented Arterial Blood Pressure 168/61 - Exam Patient is alert and oriented 3 she is maintained on BiPAP at this time, she is able to communicate HEENT head normocephalic and atraumatic Neck is supple no JVD no goiter Chest exam reveals coarse crackles bilaterally no wheezing Cardiac exam reveals regular heart sounds no gallops no murmurs Abdomen is soft nontender no organomegaly Extremity exam reveals minimal edema no cyanosis or clubbing Neurological examination reveals no gross focal deficit - Labs CBC & Chem 7: 10/09/19 06:53 10/09/19 06:53 Labs: Abnormal Lab Results - Last 24 Hours (Table) 10/08/19 10/08/19 10/08/19 Range/Units 11:32 16:42 20:11 WBC (3.8-10.6) k/uL Hgb (11.4-16.0) gm/dL MCHC (31.0-37.0) g/dL Plt Count (150-450) k/uL Neutrophils # (1.3-7.7) k/uL Lymphocytes # (1.0-4.8) k/uL Chloride (98-107) mmol/L Carbon Dioxide (22-30) mmol/L BUN (7-17) mg/dL Creatinine (0.52-1.04) mg/dL Glucose (74-99) mg/dL POC Glucose (mg/dL) 176 H 133 H 254 H (75-99) mg/dL AST (14-36) U/L ALT (4-34) U/L Total Protein (6.3-8.2) g/dL Albumin (3.5-5.0) g/dL 10/09/19 10/09/19 10/09/19 Range/Units 06:53 06:53 07:01 WBC 11.4 H (3.8-10.6) k/uL Hgb 11.0 L (11.4-16.0) gm/dL MCHC 30.5 L (31.0-37.0) g/dL Plt Count 131 L (150-450) k/uL Neutrophils # 10.6 H (1.3-7.7) k/uL Lymphocytes # 0.2 L (1.0-4.8) k/uL Chloride 88 L (98-107) mmol/L Carbon Dioxide 48 H* (22-30) mmol/L BUN 22 H (7-17) mg/dL Creatinine 0.20 L (0.52-1.04) mg/dL Glucose 159 H (74-99) mg/dL POC Glucose (mg/dL) 158 H (75-99) mg/dL AST 53 H (14-36) U/L ALT 56 H (4-34) U/L Total Protein 5.3 L (6.3-8.2) g/dL Albumin 2.9 L (3.5-5.0) g/dL Microbiology - Last 24 Hours (Table) 10/03/19 14:15 Blood Culture - Preliminary Blood No Growth after 120 hours 10/07/19 08:34 Urine Culture - Final Urine,Clean Catch Assessment and Plan Assessment: 1. Acute on chronic hypoxic and hypercapnic respiratory failure requiring mechanical ventilation. Patient is currently intubated and sedated. Patient has been extubated on 10/05/2019 2. Unresponsiveness and acute respiratory failure possibly related to pain medication overdose. It is unclear exactly how much pain medication was taken. reports the patient may have taken extra pain medication for her back pain. Resolved 3. Influenza A positive. Patient started on Tamiflu 4. UTI: Continue Rocephin 1 g daily. Check urine culture 5. Sepsis present on admission patient's hypoxic and tachycardic. Blood culture pending. Continue with antibiotics and IV fluids 6. Elevated LFTs: Possibly related to patient's chronic hepatitis C. Patient also has a known liver lesion is stable. And is followed by GI service. 7. History of paroxysmal atrial fibrillation not on anticoagulation due to history of GI bleed 8. History of hyperthyroidism maintained on Tapazole 9. History of chronic low back pain 10. History of COPD and evidence of acute exacerbation. Patient having elevated CO2. Did discuss with pulmonary team. BiPAP ordered. Concerns per pulmonary regards to pain medication and respiratory status pain medications adjusted per pulmonary team. 11. History of kidney stone status post lithotripsy. urology services have been consulted. Per urology services KUB and ultrasound does not identify any hydronephrosis or stone. Per urology services no further intervention required continue treatment for UTI GI prophylaxis Protonix and DVT prophylaxis Lovenox I performed an examination of the patient and discussed their management with the Nurse Practitioner. I have reviewed the Nurse Practitioner's notes and agree with the documented findings and plan of care
[2019-10-09 11:54] LABS: Glucose,Whole Blood 146 mg/dL (75-99)
[2019-10-09 17:09] LABS: Glucose,Whole Blood 192 mg/dL (75-99)
[2019-10-09] MEDS: HYDROcodone/APAP 10-325MG 1 EACH TAB PO PRN (19:48)
[2019-10-09] MEDS: MONTELUKAST 10 MG TAB PO SCH (19:49)
[2019-10-09] MEDS: DILTIAZEM CD 240 MG CAP.ER.24H PO SCH (19:49)
[2019-10-09] MEDS: PRAMIPEXOLE 0.5 MG TAB PO SCH (19:49)
[2019-10-09] MEDS: ONDANSETRON 4 MG/2 ML VIAL IVP PRN (20:01)
[2019-10-09 20:28] LABS: Glucose,Whole Blood 188 mg/dL (75-99)
[2019-10-09] MEDS: IPRATROPIUM-ALBUTEROL 3 ML NEB INHALATION PRN (23:12)
[2019-10-10] MEDS: IPRATROPIUM-ALBUTEROL 3 ML NEB INHALATION PRN ×2 (03:35→23:32)
[2019-10-10 07:03] LABS: Glucose,Whole Blood 180 mg/dL (75-99)
[2019-10-10 07:48] LABS: Basophils % (A) 0 %; Eosinophils % (A) 0 %; HGB 10.4 gm/dL (11.4-16.0); Hypochromasia Marked; Lymphocytes # (A) 0.2 k/uL (1.0-4.8); Lymphocytes % (A) 2 %; MCH 28.5 pg (25.0-35.0); MCHC 29.8 g/dL (31.0-37.0); MCV 95.6 fL (80.0-100.0); Mean Platelet Volume 8.4; Monocytes # (A) 0.5 k/uL (0-1.0); Monocytes % (A) 4 %; Neutrophils # (A) 12.2 k/uL (1.3-7.7); Neutrophils % (A) 93 %; Platelet Count 150 k/uL (150-450); Poikilocytosis Slight; RBC 3.66 m/uL (3.80-5.40); WBC 13.2 k/uL (3.8-10.6)
[2019-10-10 07:54] LABS: ALT 68 U/L (4-34); AST 49 U/L (14-36); African American GFR (CKD) >90 (>60 ml/min/1.73 sqM); Albumin 2.9 g/dL (3.5-5.0); Alkaline Phosphatase 131 U/L (38-126); Blood Urea Nitrogen 24 mg/dL (7-17); Calcium 8.8 mg/dL (8.4-10.2); Chloride 87 mmol/L (98-107); Glucose 191 mg/dL (74-99); Non-African American GFR(CKD) >90 (>60 ml/min/1.73 sqM); Potassium 3.9 mmol/L (3.5-5.1); Sodium 140 mmol/L (137-145); Total Bilirubin 0.4 mg/dL (0.2-1.3); Total Protein 5.2 g/dL (6.3-8.2)
[2019-10-10 08:00] LABS: Anion Gap 0 mmol/L
[2019-10-10] MEDS: INSULIN ASPART (NovoLOG) 100 UNIT/ML VIAL SQ SCH ×4 (08:07→22:06)
[2019-10-10] MEDS: ENOXAPARIN 40 MG/0.4 ML SYRINGE SQ SCH (08:07)
[2019-10-10 08:10] LABS: Carbon Dioxide 53 mmol/L (22-30)
[2019-10-10] MEDS: TAMSULOSIN 0.4 MG CAP.ER.24H PO SCH (08:10)
[2019-10-10] MEDS: FUROSEMIDE 20 MG TAB PO SCH (08:10)
[2019-10-10] MEDS: METHIMAZOLE 5 MG TAB PO SCH (08:10)
[2019-10-10] MEDS: PANTOPRAZOLE 40 MG TABLET PO SCH (08:10)
[2019-10-10] MEDS: POTASSIUM CHLORIDE ER 10 MEQ TAB.ER.PRT PO SCH (08:10)
[2019-10-10] MEDS: methylPREDNISolone SOD SUCCI 40 MG/ML 1 ML VIAL IV SCH ×3 (08:10→23:54)
[2019-10-10] MEDS: IPRATROPIUM-ALBUTEROL 3 ML NEB INHALATION SCH ×4 (08:22→19:14)
[2019-10-10] MEDS: HYDROcodone/APAP 10-325MG 1 EACH TAB PO PRN (10:06)
--- NOTE | 2019-10-10 11:00 | P.PN ---
Subjective Progress Note Date: 10/10/19 This 64-year-old female with a known history of COPD, chronic hypoxic respiratory failure home O2 dependent, hypothyroidism, chronic back pain, paroxysmal atrial fibrillation, chronic hepatitis C infection, kidney stones. History was obtained from ER report and patient's . She is currently intubated and sedated. And in the ICU. Per her she had been complaining of some shortness of breath and cough over the last several days. She had also recently been at [facility] for COPD exacerbation and was discharged on steroids. He also reports that she was complaining of back pain and thought that it may be her kidney stone bothering her. He believes that she may have taken extra pain medications. The reports that he was trying to get his to the core to bring her to the hospital. While she was walking she started to sway and then fell to the ground and hit her head. He could not get her to wake up. He called EMS. She was found at home by EMS with oxygen s aturation 70% and on 2 L nasal cannula. At that time she was minimally responsive. And had developed bag mask ventilation to transport. Patient was intubated on arrival to ER physician. She'll be admitted to the ICU. Dr. Raphael has been consulted for ICU and vent management. EKG normal sinus rhythm. Chest x-ray negative for any acute pulmonary process. Influenza A is positive. She has evidence of a UTI. She's given Rocephin in the ER and started on Tamiflu. Lactic acid elevated at 5.4. Drug screen is positive for opiates Oxycodone and benzodiazepine. On 10/05/2019 patient was seen and examined in the ICU she is alert and oriented 3 in no apparent distress she is still complaining of shortness of breath and complaining of severe pain in her back otherwise she denies any complaints, there is no fever or chills no headache or dizziness no chest pain no nausea or vomiting no abdominal pain no diarrhea no burning with urination no frequency or urgency no hematuria, patient is off BiPAP and is maintained on oxygen via nasal cannula 2 L/m On 10/06/2019 patient remains in the intensive care unit. Patient was extubated to 10/05/2019. Patient is alert and oriented 3 currently on 2 L nasal cannula. Patient concerned about kidney stone. Will consult urology services. Patient is still short of breath with activity. Patient denies chest pain. Patient denies nausea vomiting or diarrhea. Patient denies any urinary burning or frequency On 10/07/2019 patient is alert and oriented 3. Patient remains on 2 L nasal cannula. Patient reports improvement with her shortness of breath. Patient remains on IV steroids and Rocephin antibiotic. Also currently receiving Ta miflu. Urology services are following. At this time patient denies chest pain. Patient denies nausea vomiting or diarrhea. Patient denies any urinary burning or frequency On 10/08/2019 patient is alert and oriented 3. Patient maintained on 2 L nasal cannula. Patient does report improvement with shortness of breath. Patient remains on IV steroids and Rocephin antibiotic. Also currently getting Tamiflu for influenza A. No further surgical workup per urology services at this time patient complains of chronic back pain. Patient denies chest pain. Patient denies nausea vomiting or diarrhea. Patient denies any urinary burning or frequency On 10/09/2019 patient is alert and oriented 3. Discussed case with pulmonary team. Patient having elevated CO2 40 8P meds adjusted per pulmonary and BiPAP ordered. Patient is complaining of chronic pain. Patient maintained on home pain management regime. Concerns per pulmonary team in regards to oversedation and respiratory status. Patient denies any nausea vomiting or diarrhea. Patient denies any urinary burning or frequency On 10/10/2019 patient is alert and oriented 3. KERRIE Webster now covering for pulmonary. Dr. Wolfe has been consulted for constriction for possible inpatient rehab which patient is agreeable to highly encouraged. Patient CO2 elevated at 53. Will defer to pulmonary for possible BiPAP. At this time patient denies chest pain or shortness of breath. Patient denies nausea vomiting or diarrhea. Patient denies any urinary burning or frequency Objective - Vital Signs Vital signs: Vital Signs Temp 97.7 F 10/10/19 07:10 Pulse 90 10/10/19 08:35 Resp 18 10/10/19 07:10 BP 137/74 10/10/19 07:10 Pulse Ox 94 L 10/10/19 07:10 Intake & Output 10/09/19 10/10/19 10/10/19 18:59 06:59 18:59 Intake Total 450 Output Total 325 Balance 450 -325 Weight 54.3 kg Intake: Intake, IV Titration 50 Amount cefTRIAXone 1 gm In 50 Sodium Chloride 0.9% 50 ml @ 100 mls/hr IVPB Q24HR [facility] Rx#:[id number] Oral 400 Output: Urine 325 Other: Voiding Method Bedpan Bedpan Bedpan Diaper Diaper ABP, PAP, CO, CI - Last Documented Arterial Blood Pressure 168/61 - Exam Patient is alert and oriented 3 she is maintained on BiPAP at this time, she is able to communicate HEENT head normocephalic and atraumatic Neck is supple no JVD no goiter Chest exam reveals coarse crackles bilaterally no wheezing Cardiac exam reveals regular heart sounds no gallops no murmurs Abdomen is soft nontender no organomegaly Extremity exam reveals minimal edema no cyanosis or clubbing Neurological examination reveals no gross focal deficit - Labs CBC & Chem 7: 10/10/19 07:15 10/10/19 07:15 Labs: Abnormal Lab Results - Last 24 Hours (Table) 10/09/19 10/09/19 10/09/19 Range/Units 11:51 17:05 20:26 WBC (3.8-10.6) k/uL RBC (3.80-5.40) m/uL Hgb (11.4-16.0) gm/dL MCHC (31.0-37.0) g/dL Neutrophils # (1.3-7.7) k/uL Lymphocytes # (1.0-4.8) k/uL Chloride (98-107) mmol/L Carbon Dioxide (22-30) mmol/L BUN (7-17) mg/dL Creatinine (0.52-1.04) mg/dL Glucose (74-99) mg/dL POC Glucose (mg/dL) 146 H 192 H 188 H (75-99) mg/dL AST (14-36) U/L ALT (4-34) U/L Alkaline Phosphatase (38-126) U/L Total Protein (6.3-8.2) g/dL Albumin (3.5-5.0) g/dL 10/10/19 10/10/19 10/10/19 Range/Units 06:57 07:15 07:15 WBC 13.2 H (3.8-10.6) k/uL RBC 3.66 L (3.80-5.40) m/uL Hgb 10.4 L (11.4-16.0) gm/dL MCHC 29.8 L (31.0-37.0) g/dL Neutrophils # 12.2 H (1.3-7.7) k/uL Lymphocytes # 0.2 L (1.0-4.8) k/uL Chloride 87 L (98-107) mmol/L Carbon Dioxide 53 H* (22-30) mmol/L BUN 24 H (7-17) mg/dL Creatinine 0.26 L (0.52-1.04) mg/dL Glucose 191 H (74-99) mg/dL POC Glucose (mg/dL) 180 H (75-99) mg/dL AST 49 H (14-36) U/L ALT 68 H (4-34) U/L Alkaline Phosphatase 131 H (38-126) U/L Total Protein 5.2 L (6.3-8.2) g/dL Albumin 2.9 L (3.5-5.0) g/dL Microbiology - Last 24 Hours (Table) 10/03/19 14:15 Blood Culture - Final Blood No Growth after 144 hours Assessment and Plan Assessment: 1. Acute on chronic hypoxic and hypercapnic respiratory failure requiring mechanical ventilation. Patient is currently intubated and sedated. Patient has been extubated on 10/05/2019. CO2 elevated will defer to pulmonary possible BiPAP. 2. Unresponsiveness and acute respiratory failure possibly related to pain medication overdose. It is unclear exactly how much pain medication was taken. reports the patient may have taken extra pain medication for her back pain. Resolved 3. Influenza A positive. Patient started on Tamiflu 4. UTI: Continue Rocephin 1 g daily. Check urine culture 5. Sepsis present on admission patient's hypoxic and tachycardic. Blood cul ture pending. resolved 6. Elevated LFTs: Possibly related to patient's chronic hepatitis C. Patient also has a known liver lesion is stable. And is followed by GI service. 7. History of paroxysmal atrial fibrillation not on anticoagulation due to history of GI bleed 8. History of hyperthyroidism maintained on Tapazole 9. History of chronic low back pain 10. History of COPD and evidence of acute exacerbation. Patient having elevated CO2. Did discuss with pulmonary team. BiPAP ordered. Concerns per pulmonary regards to pain medication and respiratory status pain medications adj usted per pulmonary team. 11. History of kidney stone status post lithotripsy. urology services have been consulted. Per urology services KUB and ultrasound does not identify any hydronephrosis or stone. Per urology services no further intervention required continue treatment for UTI GI prophylaxis Protonix and DVT prophylaxis Lovenox pulmonary service is following. Patient is agreeable at this time for rehab Dr. Wolfe been consulted for inpatient [facility] I performed an examination of the patient and discussed their management with the Nurse Practitioner. I have reviewed the Nurse Practitioner's notes and agree with the documented findings and plan of care
[2019-10-10 11:54] LABS: Glucose,Whole Blood 283 mg/dL (75-99)
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
[2019-10-10 16:49] LABS: Glucose,Whole Blood 227 mg/dL (75-99)
[2019-10-10] MEDS: BUDESONIDE 0.5 MG/2 ML NEBU INHALATION SCH (19:14)
[2019-10-10 20:17] LABS: Glucose,Whole Blood 191 mg/dL (75-99)
[2019-10-10] MEDS: HEPARIN SODIUM,PORCINE 5,000 UNIT/ML 1 ML VIAL SQ SCH (22:06)
[2019-10-10 22:31] LABS: Glucose,Whole Blood 165 mg/dL (75-99)
[2019-10-10 22:37] LABS: ABG Oxygen Saturation 91.9 % (94-97); ABG PH 7.41 (7.35-7.45); ABG PO2 60 mmHg (83-108); ABG TCO2 66 mmol/L (19-24); Allen Test Performed? Yes
[2019-10-10 22:44] LABS: ABG HCO3 63 mmol/L (21-25); ABG PCO2 100 mmHg (35-45)
--- NOTE | 2019-10-10 22:45 | XR ---
EXAMINATION TYPE: XR chest 1V portable DATE OF EXAM: 10/10/2019 COMPARISON: 10/07/2019 HISTORY: Respiratory failure TECHNIQUE: FINDINGS: Portable semiupright view shows some pleural fluid and atelectasis at the lung bases. There is no gross heart failure. Heart appears enlarged. There is probably airspace infiltrate also in the left lower lobe. IMPRESSION: Pleural effusions with atelectasis at the lung bases not significantly different than las t exam. No heart failure seen.
[2019-10-10 22:47] LABS: ABG Base Excess 38.1 mmol/L
[2019-10-10] MEDS: DILTIAZEM CD 240 MG CAP.ER.24H PO SCH (23:03)
[2019-10-10] MEDS: MONTELUKAST 10 MG TAB PO SCH (23:04)
[2019-10-10] MEDS: PRAMIPEXOLE 0.5 MG TAB PO SCH (23:04)
[2019-10-10 23:28] LABS: Basophils # (A) 0.1 k/uL (0-0.2); Basophils % (A) 0 %; Eosinophils % (A) 0 %; HCT 35.6 % (34.0-46.0); HGB 10.8 gm/dL (11.4-16.0); Hypochromasia Marked; Lymphocytes # (A) 0.1 k/uL (1.0-4.8); Lymphocytes % (A) 1 %; MCH 28.8 pg (25.0-35.0); MCHC 30.3 g/dL (31.0-37.0); Mean Platelet Volume 8.6; Monocytes # (A) 0.7 k/uL (0-1.0); Monocytes % (A) 6 %; Neutrophils # (A) 11.6 k/uL (1.3-7.7); Neutrophils % (A) 92 %; Platelet Count 123 k/uL (150-450); RBC 3.74 m/uL (3.80-5.40); RDW 15.1 % (11.5-15.5); WBC 12.7 k/uL (3.8-10.6)
[2019-10-10 23:36] LABS: African American GFR (CKD) >90 (>60 ml/min/1.73 sqM); Blood Urea Nitrogen 26 mg/dL (7-17); Calcium 8.6 mg/dL (8.4-10.2); Chloride 84 mmol/L (98-107); Glucose 141 mg/dL (74-99); Magnesium 1.8 mg/dL (1.6-2.3); Non-African American GFR(CKD) >90 (>60 ml/min/1.73 sqM); Potassium 3.5 mmol/L (3.5-5.1); Sodium 140 mmol/L (137-145)
[2019-10-10 23:43] LABS: Anion Gap 1 mmol/L
[2019-10-10 23:47] LABS: Carbon Dioxide 55 mmol/L (22-30)
[2019-10-11 00:21] LABS: ABG Oxygen Saturation 89.9 % (94-97); ABG PH 7.44 (7.35-7.45); ABG TCO2 66 mmol/L (19-24); Allen Test Performed? Yes
[2019-10-11 00:29] LABS: ABG PCO2 93 mmHg (35-45)
[2019-10-11 00:30] LABS: ABG Base Excess 38.8 mmol/L; ABG HCO3 63 mmol/L (21-25); ABG PO2 54 mmHg (83-108)
[2019-10-11 00:46] LABS: Glucose,Whole Blood 112 mg/dL (75-99)
[2019-10-11 04:55] LABS: Basophils % (A) 0 %; Eosinophils % (A) 0 %; HGB 10.7 gm/dL (11.4-16.0); Hypochromasia Marked; Lymphocytes # (A) 0.3 k/uL (1.0-4.8); Lymphocytes % (A) 2 %; MCHC 30.5 g/dL (31.0-37.0); MCV 94.9 fL (80.0-100.0); Mean Platelet Volume 8.8; Monocytes # (A) 0.4 k/uL (0-1.0); Monocytes % (A) 3 %; Neutrophils # (A) 11.1 k/uL (1.3-7.7); Neutrophils % (A) 93 %; Platelet Count 132 k/uL (150-450); Poikilocytosis Slight; RBC 3.69 m/uL (3.80-5.40); RDW 14.9 % (11.5-15.5); WBC 11.9 k/uL (3.8-10.6)
[2019-10-11 05:10] LABS: ALT 74 U/L (4-34); AST 37 U/L (14-36); African American GFR (CKD) >90 (>60 ml/min/1.73 sqM); Albumin 2.9 g/dL (3.5-5.0); Alkaline Phosphatase 130 U/L (38-126); Blood Urea Nitrogen 26 mg/dL (7-17); Calcium 8.6 mg/dL (8.4-10.2); Chloride 84 mmol/L (98-107); Glucose 135 mg/dL (74-99); Non-African American GFR(CKD) >90 (>60 ml/min/1.73 sqM); Potassium 3.6 mmol/L (3.5-5.1); Sodium 141 mmol/L (137-145); Total Bilirubin 0.4 mg/dL (0.2-1.3)
[2019-10-11 05:17] LABS: Anion Gap -1 mmol/L
[2019-10-11 05:19] LABS: Carbon Dioxide 58 mmol/L (22-30)
[2019-10-11 05:22] LABS: ABG PH 7.47 (7.35-7.45); ABG TCO2 68 mmol/L (19-24); Allen Test Performed? Yes
[2019-10-11 05:25] LABS: ABG PCO2 90 mmHg (35-45)
[2019-10-11 05:26] LABS: ABG Base Excess 41.2 mmol/L; ABG HCO3 65 mmol/L (21-25); ABG PO2 52 mmHg (83-108)
[2019-10-11] MEDS ORDERED: Potassium Replacement Protocol 1 EACH MISC MISCELLANE PRN ×2 (06:46→06:52)
[2019-10-11] MEDS ORDERED: POTASSIUM CHLORIDE ER 20 MEQ TAB.ER PO SCH (07:00)
[2019-10-11] MEDS ORDERED: POTASSIUM CHLORIDE 10 MEQ in WATER FOR INJECTION 1 100ML.BAG IVPB SCH (07:00)
--- NOTE | 2019-10-11 07:05 | XR ---
EXAMINATION TYPE: XR chest 1V DATE OF EXAM: 10/11/2019 HISTORY: KATIE. REFERENCE: Previous study dated 10/10/2019. FINDINGS: Lung volumes prominent. There are bilateral effusions, greater on the left than the right. There is bibasilar airspace disease, greater on the left than the right. The heart is not enlarged. IMPRESSION: NO SIGNIFICANT INTERVAL CHANGE IN THE APPEARANCE OF CHEST
[2019-10-11 07:13] LABS: Glucose,Whole Blood 151 mg/dL (75-99)
[2019-10-11] MEDS: PANTOPRAZOLE 40 MG TABLET PO SCH (07:25)
[2019-10-11] MEDS: INSULIN ASPART (NovoLOG) 100 UNIT/ML VIAL SQ SCH ×4 (07:26→21:14)
[2019-10-11] MEDS: BUDESONIDE 0.5 MG/2 ML NEBU INHALATION SCH ×2 (07:42→19:06)
[2019-10-11] MEDS: IPRATROPIUM-ALBUTEROL 3 ML NEB INHALATION SCH ×4 (07:42→19:06)
[2019-10-11] MEDS: methylPREDNISolone SOD SUCCI 40 MG/ML 1 ML VIAL IV SCH ×3 (08:35→23:58)
[2019-10-11] MEDS: HYDROcodone/APAP 10-325MG 1 EACH TAB PO PRN ×3 (08:36→21:04)
[2019-10-11] MEDS: POTASSIUM CHLORIDE ER 10 MEQ TAB.ER.PRT PO SCH (08:37)
[2019-10-11] MEDS: FUROSEMIDE 20 MG TAB PO SCH (08:37)
[2019-10-11] MEDS: TAMSULOSIN 0.4 MG CAP.ER.24H PO SCH (08:40)
[2019-10-11] MEDS: HEPARIN SODIUM,PORCINE 5,000 UNIT/ML 1 ML VIAL SQ SCH ×2 (08:40→21:13)
[2019-10-11] MEDS: METHIMAZOLE 5 MG TAB PO SCH (10:17)
[2019-10-11 11:56] LABS: Glucose,Whole Blood 152 mg/dL (75-99)
--- NOTE | 2019-10-11 15:42 | P.PN ---
Subjective Progress Note Date: 10/11/19 This 64-year-old female with a known history of COPD, chronic hypoxic respiratory failure home O2 dependent, hypothyroidism, chronic back pain, paroxysmal atrial fibrillation, chronic hepatitis C infection, kidney stones. History was obtained from ER report and patient's . She is currently intubated and sedated. And in the ICU. Per her she had been complaining of some shortness of breath and cough over the last several days. She had also recently been at [facility] for COPD exacerbation and was discharged on steroids. He also reports that she was complaining of back pain and thought that it may be her kidney stone bothering her. He believes that she may have taken extra pain medications. The reports that he was trying to get his to the core to bring her to the hospital. While she was walking she started to sway and then fell to the ground and hit her head. He could not get her to wake up. He called EMS. She was found at home by EMS with oxygen saturation 70% and on 2 L nasal cannula. At that time she was minimally responsive. And had developed bag mask ventilation to transport. Patient was intubated on arrival to ER physician. She'll be admitted to the ICU. Dr. Raphael has been consulted for ICU and vent management. EKG normal sinus rhythm. Chest x-ray negative for any acute pulmonary process. Influenza A is positive. She has evidence of a UTI. She's given Rocephin in the ER and started on Tamiflu. Lactic acid elevated at 5.4. Drug screen is positive for opiates Oxycodone and benzodiazepine. On 10/05/2019 patient was seen and examined in the ICU she is alert and oriented 3 in no apparent distress she is still complaining of shortness of breath and complaining of severe pain in her back otherwise she denies any complaints, there is no fever or chills no headache or dizziness no chest pain no nausea or vomiting no abdominal pain no diarrhea no burning with urination no frequency or urgency no hematuria, patient is off BiPAP and is maintained on oxygen via nasal cannula 2 L/m On 10/06/2019 patient remains in the intensive care unit. Patient was extubated to 10/05/2019. Patient is alert and oriented 3 currently on 2 L nasal cannula. Patient concerned about kidney stone. Will consult urology services. Patient is still short of breath with activity. Patient denies chest pain. Patient denies nausea vomiting or diarrhea. Patient denies any urinary burning or frequency On 10/07/2019 patient is alert and oriented 3. Patient remains on 2 L nasal cannula. Patient reports improvement with her shortness of breath. Patient remains on IV steroids and Rocephin antibiotic. Also currently receiving T amiflu. Urology services are following. At this time patient denies chest pain. Patient denies nausea vomiting or diarrhea. Patient denies any urinary burning or frequency On 10/08/2019 patient is alert and oriented 3. Patient maintained on 2 L nasal cannula. Patient does report improvement with shortness of breath. Patient remains on IV steroids and Rocephin antibiotic. Also currently getting Tamiflu for influenza A. No further surgical workup per urology services at this time patient complains of chronic back pain. Patient denies chest pain. Patient denies nausea vomiting or diarrhea. Patient denies any urinary burning or frequency On 10/09/2019 patient is alert and oriented 3. Discussed case with pulmonary team. Patient having elevated CO2 40 8P meds adjusted per pulmonary and BiPAP ordered. Patient is complaining of chronic pain. Patient maintained on home pain management regime. Concerns per pulmonary team in regards to oversedation and respiratory status. Patient denies any nausea vomiting or diarrhea. Patient denies any urinary burning or frequency On 10/10/2019 patient is alert and oriented 3. KERRIE Webster now covering for pulmonary. Dr. Wolfe has been consulted for constriction for possible inpatient rehab which patient is agreeable to highly encouraged. Patient CO2 elevated at 53. Will defer to pulmonary for possible BiPAP. At this time patient denies chest pain or shortness of breath. Patient denies nausea vomiting or diarrhea. Patient denies any urinary burning or frequency On 10/11/2019 patient was seen and examined in the ICU yesterday patient mental status deteriorated she was obtunded and was transferred to intensive care unit she was refusing to wear BiPAP and her CO2 level was very high. Today patient is alert and oriented in no apparent distress nurse in ICU managed to have her use BiPAP machine for a couple of hours, at this time she denies any fever or chills no headache or dizziness no chest pain no nausea or vomiting no abdominal pain no diarrhea and no urinary symptoms Objective - Vital Signs Vital signs: Vital Signs Temp 98.1 F 10/11/19 12:00 Pulse 101 H 10/11/19 15:26 Resp 25 H 10/11/19 12:00 BP 146/87 10/11/19 12:00 Pulse Ox 92 L 10/11/19 12:00 Intake & Output 10/10/19 10/11/19 10/11/19 18:59 06:59 18:59 Intake Total 200 290 Output Total 500 750 Balance 200 -500 -460 Weight 50.4 kg Intake: IV 80 KVO 30 cefTRIAXone 1 gm In 50 Sodium Chloride 0.9% 50 ml @ 100 mls/hr IVPB Q24HR [facility] Rx#:[id number] Oral 200 Blood Product 210 Output: Urine 500 750 Other: Voiding Method Bedpan Incontinent Diaper # Voids 1 ABP, PAP, CO, CI - Last Documented Arterial Blood Pressure 168/61 - Exam Patient is alert and oriented 3 she is maintained on BiPAP at this time, she is able to communicate HEENT head normocephalic and atraumatic Neck is supple no JVD no goiter Chest exam reveals coarse crackles bilaterally no wheezing Cardiac exam reveals regular heart sounds no gallops no murmurs Abdomen is soft nontender no organomegaly Extremity exam reveals minimal edema no cyanosis or clubbing Neurological examination reveals no gross focal deficit - Labs CBC & Chem 7: 10/11/19 04:16 10/11/19 04:16 Labs: Abnormal Lab Results - Last 24 Hours (Table) 10/10/19 10/10/19 10/10/19 Range/Units 16:46 20:16 22:28 WBC (3.8-10.6) k/uL RBC (3.80-5.40) m/uL Hgb (11.4-16.0) gm/dL MCHC (31.0-37.0) g/dL Plt Count (150-450) k/uL Neutrophils # (1.3-7.7) k/uL Lymphocytes # (1.0-4.8) k/uL ABG pH (7.35-7.45) ABG pCO2 (35-45) mmHg ABG pO2 (83-108) mmHg ABG HCO3 (21-25) mmol/L ABG Total CO2 (19-24) mmol/L ABG O2 Saturation (94-97) % Chloride (98-107) mmol/L Carbon Dioxide (22-30) mmol/L BUN (7-17) mg/dL Creatinine (0.52-1.04) mg/dL Glucose (74-99) mg/dL POC Glucose (mg/dL) 227 H 191 H 165 H (75-99) mg/dL AST (14-36) U/L ALT (4-34) U/L Alkaline Phosphatase (38-126) U/L Total Protein (6.3-8.2) g/dL Albumin (3.5-5.0) g/dL 10/10/19 10/10/19 10/10/19 Range/Units 22:34 23:14 23:14 WBC 12.7 H (3.8-10.6) k/uL RBC 3.74 L (3.80-5.40) m/uL Hgb 10.8 L (11.4-16.0) gm/dL MCHC 30.3 L (31.0-37.0) g/dL Plt Count 123 L (150-450) k/uL Neutrophils # 11.6 H (1.3-7.7) k/uL Lymphocytes # 0.1 L (1.0-4.8) k/uL ABG pH (7.35-7.45) ABG pCO2 100 H* (35-45) mmHg ABG pO2 60 L (83-108) mmHg ABG HCO3 63 H* (21-25) mmol/L ABG Total CO2 66 H (19-24) mmol/L ABG O2 Saturation 91.9 L (94-97) % Chloride 84 L (98-107) mmol/L Carbon Dioxide 55 H* (22-30) mmol/L BUN 26 H (7-17) mg/dL Creatinine 0.19 L (0.52-1.04) mg/dL Glucose 141 H (74-99) mg/dL POC Glucose (mg/dL) (75-99) mg/dL AST (14-36) U/L ALT (4-34) U/L Alkaline Phosphatase (38-126) U/L Total Protein (6.3-8.2) g/dL Albumin (3.5-5.0) g/dL 10/11/19 10/11/19 10/11/19 Range/Units 00:08 00:33 04:16 WBC 11.9 H (3.8-10.6) k/uL RBC 3.69 L (3.80-5.40) m/uL Hgb 10.7 L (11.4-16.0) gm/dL MCHC 30.5 L (31.0-37.0) g/dL Plt Count 132 L (150-450) k/uL Neutrophils # 11.1 H (1.3-7.7) k/uL Lymphocytes # 0.3 L (1.0-4.8) k/uL ABG pH (7.35-7.45) ABG pCO2 93 H* (35-45) mmHg ABG pO2 54 L* (83-108) mmHg ABG HCO3 63 H* (21-25) mmol/L ABG Total CO2 66 H (19-24) mmol/L ABG O2 Saturation 89.9 L (94-97) % Chloride (98-107) mmol/L Carbon Dioxide (22-30) mmol/L BUN (7-17) mg/dL Creatinine (0.52-1.04) mg/dL Glucose (74-99) mg/dL POC Glucose (mg/dL) 112 H (75-99) mg/dL AST (14-36) U/L ALT (4-34) U/L Alkaline Phosphatase (38-126) U/L Total Protein (6.3-8.2) g/dL Albumin (3.5-5.0) g/dL 10/11/19 10/11/19 10/11/19 Range/Units 04:16 05:18 07:12 WBC (3.8-10.6) k/uL RBC (3.80-5.40) m/uL Hgb (11.4-16.0) gm/dL MCHC (31.0-37.0) g/dL Plt Count (150-450) k/uL Neutrophils # (1.3-7.7) k/uL Lymphocytes # (1.0-4.8) k/uL ABG pH 7.47 H (7.35-7.45) ABG pCO2 90 H* (35-45) mmHg ABG pO2 52 L* (83-108) mmHg ABG HCO3 65 H* (21-25) mmol/L ABG Total CO2 68 H (19-24) mmol/L ABG O2 Saturation 89.0 L (94-97) % Chloride 84 L (98-107) mmol/L Carbon Dioxide 58 H* (22-30) mmol/L BUN 26 H (7-17) mg/dL Creatinine 0.23 L (0.52-1.04) mg/dL Glucose 135 H (74-99) mg/dL POC Glucose (mg/dL) 151 H (75-99) mg/dL AST 37 H (14-36) U/L ALT 74 H (4-34) U/L Alkaline Phosphatase 130 H (38-126) U/L Total Protein 5.0 L (6.3-8.2) g/dL Albumin 2.9 L (3.5-5.0) g/dL 10/11/19 Range/Units 11:44 WBC (3.8-10.6) k/uL RBC (3.80-5.40) m/uL Hgb (11.4-16.0) gm/dL MCHC (31.0-37.0) g/dL Plt Count (150-450) k/uL Neutrophils # (1.3-7.7) k/uL Lymphocytes # (1.0-4.8) k/uL ABG pH (7.35-7.45) ABG pCO2 (35-45) mmHg ABG pO2 (83-108) mmHg ABG HCO3 (21-25) mmol/L ABG Total CO2 (19-24) mmol/L ABG O2 Saturation (94-97) % Chloride (98-107) mmol/L Carbon Dioxide (22-30) mmol/L BUN (7-17) mg/dL Creatinine (0.52-1.04) mg/dL Glucose (74-99) mg/dL POC Glucose (mg/dL) 152 H (75-99) mg/dL AST (14-36) U/L ALT (4-34) U/L Alkaline Phosphatase (38-126) U/L Total Protein (6.3-8.2) g/dL Albumin (3.5-5.0) g/dL Assessment and Plan Plan: 1. Acute on chronic hypoxic and hypercapnic respiratory failure requiring mechanical ventilation. Patient is currently intubated and sedated. Patient has been extubated on 10/05/2019. CO2 elevated will defer to pulmonary possible BiPAP. 2. Unresponsiveness and acute respiratory failure possibly related to pain medication overdose. It is unclear exactly how much pain medication was taken. reports the patient may have taken extra pain medication for her back pain. Resolved 3. Influenza A positive. Patient started on Tamiflu 4. UTI: Continue Rocephin 1 g daily. Check urine culture 5. Sepsis present on admission patient's hypoxic and tachycardic. Blood culture pending. resolved 6. Elevated LFTs: Possibly related to patient's chronic hepatitis C. Patient also has a known liver lesion is stable. And is followed by GI service. 7. History of paroxysmal atrial fibrillation not on anticoagulation due to history of GI bleed 8. History of hyperthyroidism maintained on Tapazole 9. History of chronic low back pain 10. History of COPD and evidence of acute exacerbation. Patient having elevated CO2. Did discuss with pulmonary team. BiPAP ordered. Concerns per pulmonary regards to pain medication and respiratory status pain medications adjusted per pulmonary team. 11. History of kidney stone status post lithotripsy. urology services have been consulted. Per urology services KUB and ultrasound does not identify any hydronephrosis or stone. Per urology services no further intervention required continue treatment for UTI GI prophylaxis Protonix and DVT prophylaxis Lovenox pulmonary service is following. Patient is agreeable at this time for rehab Dr. Wolfe been consulted for inpatient rehabilitation [facility]
[2019-10-11 16:37] LABS: Glucose,Whole Blood 242 mg/dL (75-99)
[2019-10-11 20:19] LABS: Glucose,Whole Blood 264 mg/dL (75-99)
[2019-10-11] MEDS ORDERED: INSULIN ASPART (NovoLOG) 100 UNIT/ML VIAL SQ ONE (20:48)
[2019-10-11] MEDS: MONTELUKAST 10 MG TAB PO SCH (21:04)
[2019-10-11] MEDS: PRAMIPEXOLE 0.5 MG TAB PO SCH (21:04)
[2019-10-11] MEDS: DILTIAZEM CD 240 MG CAP.ER.24H PO SCH (21:12)
[2019-10-11] MEDS: ALPRAZolam 0.25 MG TAB PO PRN (22:52)
[2019-10-11] MEDS: IPRATROPIUM-ALBUTEROL 3 ML NEB INHALATION PRN (23:34)
[2019-10-12] MEDS: IPRATROPIUM-ALBUTEROL 3 ML NEB INHALATION PRN (03:20)
[2019-10-12 05:19] LABS: Basophils % (A) 0 %; Eosinophils % (A) 0 %; HCT 35.7 % (34.0-46.0); HGB 10.7 gm/dL (11.4-16.0); Hypochromasia Marked; Lymphocytes # (A) 0.2 k/uL (1.0-4.8); Lymphocytes % (A) 1 %; MCH 28.8 pg (25.0-35.0); MCV 95.9 fL (80.0-100.0); Mean Platelet Volume 8.8; Monocytes # (A) 0.7 k/uL (0-1.0); Monocytes % (A) 5 %; Neutrophils # (A) 13.2 k/uL (1.3-7.7); Neutrophils % (A) 93 %; Platelet Count 127 k/uL (150-450); RBC 3.72 m/uL (3.80-5.40); RDW 15.1 % (11.5-15.5); WBC 14.3 k/uL (3.8-10.6)
[2019-10-12 05:32] LABS: ALT 106 U/L (4-34); AST 57 U/L (14-36); African American GFR (CKD) >90 (>60 ml/min/1.73 sqM); Albumin 2.7 g/dL (3.5-5.0); Alkaline Phosphatase 145 U/L (38-126); Blood Urea Nitrogen 27 mg/dL (7-17); Calcium 8.7 mg/dL (8.4-10.2); Chloride 84 mmol/L (98-107); Glucose 230 mg/dL (74-99); Non-African American GFR(CKD) >90 (>60 ml/min/1.73 sqM); Sodium 142 mmol/L (137-145); Total Bilirubin 0.6 mg/dL (0.2-1.3); Total Protein 4.9 g/dL (6.3-8.2)
[2019-10-12 05:38] LABS: Anion Gap 5 mmol/L
[2019-10-12 05:40] LABS: Carbon Dioxide 53 mmol/L (22-30)
[2019-10-12 07:00] LABS: Glucose,Whole Blood 213 mg/dL (75-99)
[2019-10-12] MEDS: INSULIN ASPART (NovoLOG) 100 UNIT/ML VIAL SQ SCH ×4 (07:16→21:21)
[2019-10-12] MEDS: PANTOPRAZOLE 40 MG TABLET PO SCH (07:17)
[2019-10-12] MEDS: IPRATROPIUM-ALBUTEROL 3 ML NEB INHALATION SCH ×5 (07:49→23:28)
[2019-10-12] MEDS: BUDESONIDE 0.5 MG/2 ML NEBU INHALATION SCH ×2 (07:49→19:07)
[2019-10-12] MEDS: HYDROcodone/APAP 10-325MG 1 EACH TAB PO PRN ×3 (08:10→20:06)
[2019-10-12 11:42] LABS: Glucose,Whole Blood 142 mg/dL (75-99)
[2019-10-12] MEDS: TAMSULOSIN 0.4 MG CAP.ER.24H PO SCH (11:46)
[2019-10-12] MEDS: methylPREDNISolone SOD SUCCI 40 MG/ML 1 ML VIAL IV SCH ×2 (11:46→20:07)
[2019-10-12] MEDS: METHIMAZOLE 5 MG TAB PO SCH (11:46)
[2019-10-12] MEDS: POTASSIUM CHLORIDE ER 10 MEQ TAB.ER.PRT PO SCH (11:46)
[2019-10-12] MEDS: FUROSEMIDE 20 MG TAB PO SCH (11:46)
[2019-10-12] MEDS: HEPARIN SODIUM,PORCINE 5,000 UNIT/ML 1 ML VIAL SQ SCH ×2 (11:48→20:54)
[2019-10-12] MEDS: ONDANSETRON 4 MG/2 ML VIAL IVP PRN (13:02)
--- NOTE | 2019-10-12 14:03 | P.PN ---
Subjective Progress Note Date: 10/11/19 Principal diagnosis: Acute on chronic hypoxic and hypercapnic respiratory failure, influenza A, urine tract infection, sepsis, LFT proximal atrial fibrillation, GI bleed, hypothyro idism, renal calculi 10/11/2019, patient seen eval reexamined during the rounds labs reviewed medic ations reviewed, awake and alert majority of night he use the BiPAP machine the BiPAP has been adjusted, did not require intubation though, patient hypercapnic respiratory failure seems to be responding with BiPAP as mental status has improved a bit, we'll continue to hold on intubation and continue BiPAP and when necessary nasal cannula in between This 64-year-old female with a known history of COPD, chronic hypoxic respiratory failure home O2 dependent, hypothyroidism, chronic back pain, paro xysmal atrial fibrillation, chronic hepatitis C infection, kidney stones. History was obtained from ER report and patient's . She is currently intubated and sedated. And in the ICU. Per her she had been complaining of some shortness of breath and cough over the last several days. She had also recently been at [facility] for COPD exacerbation and was discharged on steroids. He also reports that she was complaining of back pain and thought that it may be her kidney stone bothering her. He believes that she may have taken extra pain medications. The reports that he was trying to get his to the core to bring her to the hospital. While she was walking she started to sway and then fell to the ground and hit her head. He could not get her to wake up. He called EMS. She was found at home by EMS with oxygen saturation 70% and on 2 L nasal cannula. At that time she was minimally responsive. And had developed bag mask ventilation to transport. Patient was intubated on arrival to ER physician. She'll be admitted to the ICU. Dr. Raphael has been consulted for ICU and vent management. EKG normal sinus rhythm. Chest x-ray negative for any acute pulmonary process. Influenza A is positive. She has evidence of a UTI. She's given Rocephin in the ER and started on Tamiflu. Lactic acid elevated at 5.4. Drug screen is positive for opiates Oxycodone and benzodiazepine. Objective - Vital Signs Vital signs: Vital Signs Temp 98.3 F 10/11/19 16:00 Pulse 104 H 10/11/19 16:00 Resp 20 10/11/19 16:00 BP 143/77 10/11/19 16:00 Pulse Ox 93 L 10/11/19 16:00 Intake & Output 10/10/19 10/11/19 10/11/19 18:59 06:59 18:59 Intake Total 200 340 Output Total 500 1000 Balance 200 -500 -660 Weight 50.4 kg Intake: IV 130 KVO 80 cefTRIAXone 1 gm In 50 Sodium Chloride 0.9% 50 ml @ 100 mls/hr IVPB Q24HR [facility] Rx#:[id number] Oral 200 Blood Product 210 Output: Urine 500 1000 Other: Voiding Method Bedpan Incontinent Diaper # Voids 1 ABP, PAP, CO, CI - Last Documented Arterial Blood Pressure 168/61 - Exam Patient is alert and oriented 3 she is maintained on BiPAP at this time, she is able to communicate HEENT head normocephalic and atraumatic Neck is supple no JVD no goiter Chest exam reveals coarse crackles bilaterally no wheezing Cardiac exam reveals regular heart sounds no gallops no murmurs Abdomen is soft nontender no organomegaly Extremity exam reveals minimal edema no cyanosis or clubbing Neurological examination reveals no gross focal deficit - Labs CBC & Chem 7: 10/12/19 04:37 10/12/19 04:37 Labs: Abnormal Lab Results - Last 24 Hours (Table) 10/10/19 10/10/19 10/10/19 Range/Units 20:16 22:28 22:34 WBC (3.8-10.6) k/uL RBC (3.80-5.40) m/uL Hgb (11.4-16.0) gm/dL MCHC (31.0-37.0) g/dL Plt Count (150-450) k/uL Neutrophils # (1.3-7.7) k/uL Lymphocytes # (1.0-4.8) k/uL ABG pH (7.35-7.45) ABG pCO2 100 H* (35-45) mmHg ABG pO2 60 L (83-108) mmHg ABG HCO3 63 H* (21-25) mmol/L ABG Total CO2 66 H (19-24) mmol/L ABG O2 Saturation 91.9 L (94-97) % Chloride (98-107) mmol/L Carbon Dioxide (22-30) mmol/L BUN (7-17) mg/dL Creatinine (0.52-1.04) mg/dL Glucose (74-99) mg/dL POC Glucose (mg/dL) 191 H 165 H (75-99) mg/dL AST (14-36) U/L ALT (4-34) U/L Alkaline Phosphatase (38-126) U/L Total Protein (6.3-8.2) g/dL Albumin (3.5-5.0) g/dL 10/10/19 10/10/19 10/11/19 Range/Units 23:14 23:14 00:08 WBC 12.7 H (3.8-10.6) k/uL RBC 3.74 L (3.80-5.40) m/uL Hgb 10.8 L (11.4-16.0) gm/dL MCHC 30.3 L (31.0-37.0) g/dL Plt Count 123 L (150-450) k/uL Neutrophils # 11.6 H (1.3-7.7) k/uL Lymphocytes # 0.1 L (1.0-4.8) k/uL ABG pH (7.35-7.45) ABG pCO2 93 H* (35-45) mmHg ABG pO2 54 L* (83-108) mmHg ABG HCO3 63 H* (21-25) mmol/L ABG Total CO2 66 H (19-24) mmol/L ABG O2 Saturation 89.9 L (94-97) % Chloride 84 L (98-107) mmol/L Carbon Dioxide 55 H* (22-30) mmol/L BUN 26 H (7-17) mg/dL Creatinine 0.19 L (0.52-1.04) mg/dL Glucose 141 H (74-99) mg/dL POC Glucose (mg/dL) (75-99) mg/dL AST (14-36) U/L ALT (4-34) U/L Alkaline Phosphatase (38-126) U/L Total Protein (6.3-8.2) g/dL Albumin (3.5-5.0) g/dL 10/11/19 10/11/19 10/11/19 Range/Units 00:33 04:16 04:16 WBC 11.9 H (3.8-10.6) k/uL RBC 3.69 L (3.80-5.40) m/uL Hgb 10.7 L (11.4-16.0) gm/dL MCHC 30.5 L (31.0-37.0) g/dL Plt Count 132 L (150-450) k/uL Neutrophils # 11.1 H (1.3-7.7) k/uL Lymphocytes # 0.3 L (1.0-4.8) k/uL ABG pH (7.35-7.45) ABG pCO2 (35-45) mmHg ABG pO2 (83-108) mmHg ABG HCO3 (21-25) mmol/L ABG Total CO2 (19-24) mmol/L ABG O2 Saturation (94-97) % Chloride 84 L (98-107) mmol/L Carbon Dioxide 58 H* (22-30) mmol/L BUN 26 H (7-17) mg/dL Creatinine 0.23 L (0.52-1.04) mg/dL Glucose 135 H (74-99) mg/dL POC Glucose (mg/dL) 112 H (75-99) mg/dL AST 37 H (14-36) U/L ALT 74 H (4-34) U/L Alkaline Phosphatase 130 H (38-126) U/L Total Protein 5.0 L (6.3-8.2) g/dL Albumin 2.9 L (3.5-5.0) g/dL 10/11/19 10/11/19 10/11/19 Range/Units 05:18 07:12 11:44 WBC (3.8-10.6) k/uL RBC (3.80-5.40) m/uL Hgb (11.4-16.0) gm/dL MCHC (31.0-37.0) g/dL Plt Count (150-450) k/uL Neutrophils # (1.3-7.7) k/uL Lymphocytes # (1.0-4.8) k/uL ABG pH 7.47 H (7.35-7.45) ABG pCO2 90 H* (35-45) mmHg ABG pO2 52 L* (83-108) mmHg ABG HCO3 65 H* (21-25) mmol/L ABG Total CO2 68 H (19-24) mmol/L ABG O2 Saturation 89.0 L (94-97) % Chloride (98-107) mmol/L Carbon Dioxide (22-30) mmol/L BUN (7-17) mg/dL Creatinine (0.52-1.04) mg/dL Glucose (74-99) mg/dL POC Glucose (mg/dL) 151 H 152 H (75-99) mg/dL AST (14-36) U/L ALT (4-34) U/L Alkaline Phosphatase (38-126) U/L Total Protein (6.3-8.2) g/dL Albumin (3.5-5.0) g/dL 10/11/19 Range/Units 16:36 WBC (3.8-10.6) k/uL RBC (3.80-5.40) m/uL Hgb (11.4-16.0) gm/dL MCHC (31.0-37.0) g/dL Plt Count (150-450) k/uL Neutrophils # (1.3-7.7) k/uL Lymphocytes # (1.0-4.8) k/uL ABG pH (7.35-7.45) ABG pCO2 (35-45) mmHg ABG pO2 (83-108) mmHg ABG HCO3 (21-25) mmol/L ABG Total CO2 (19-24) mmol/L ABG O2 Saturation (94-97) % Chloride (98-107) mmol/L Carbon Dioxide (22-30) mmol/L BUN (7-17) mg/dL Creatinine (0.52-1.04) mg/dL Glucose (74-99) mg/dL POC Glucose (mg/dL) 242 H (75-99) mg/dL AST (14-36) U/L ALT (4-34) U/L Alkaline Phosphatase (38-126) U/L Total Protein (6.3-8.2) g/dL Albumin (3.5-5.0) g/dL Assessment and Plan Assessment: Acute on chronic hypercapnic and hypoxic respiratory failure Altered mental status due to CO2 narcosis as well as contributed from pain meds which is on hold Influenza A pneumonia UTI Sepsis Elevated liver enzymes Paroxysmal atrial fibrillation not an anticoagulation due to GI bleed Hypothyroidism End-stage COPD Renal calculi Plan: Continue BiPAP support Supplemental oxygen in between Broad-spectrum antibiotics Increase activity as tolerated T2 to monitor in ICU closely Time with Patient: Greater than 30
--- NOTE | 2019-10-12 14:05 | P.PN ---
Subjective Progress Note Date: 10/12/19 Principal diagnosis: Acute on chronic hypoxic and hypercapnic respiratory failure, influenza A, urine tract infection, sepsis, LFT proximal atrial fibrillation, GI bleed, hypothyro idism, renal calculi 10/12/2019, patient seen eval examined during the rounds, patient remains on Bi PAP each night and when necessary during the day along with supplemental oxygen during the day, currently patient is mildly short of breath with stable hemodynamics, patient is on 3 L nasal cannula oxygen saturation 93% her last chest x-ray reviewed, bilateral small pleural effusions noted with COPD-like changes 10/11/2019, patient seen eval reexamined during the rounds labs reviewed medications reviewed, awake and alert majority of night he use the BiPAP machine the BiPAP has been adjusted, did not require intubation though, patient hypercapnic respiratory failure seems to be responding with BiPAP as mental status has improved a bit, we'll continue to hold on intubation and continue BiPAP and when necessary nasal cannula in between This 64-year-old female with a known history of COPD, chronic hypoxic respiratory failure home O2 dependent, hypothyroidism, chronic back pain, paroxysmal atrial fibrillation, chronic hepatitis C infection, kidney stones. History was obtained from ER report and patient's . She is currently intubated and sedated. And in the ICU. Per her she had been complaining of some shortness of breath and cough over the last several days. She had also recently been at [facility] for COPD exacerbation and was discharged on steroids. He also reports that she was complaining of back pain and thought that it may be her kidney stone bothering her. He believes that she may have taken extra pain medications. The reports that he was trying to get his to the core to bring her to the hospital. While she was walking she started to sway and then fell to the ground and hit her head. He could not get her to wake up. He called EMS. She was found at home by EMS with oxygen saturation 70% and on 2 L nasal cannula. At that time she was minimally responsive. And had developed bag mask ventilation to transport. Patient was intubated on arrival to ER physician. She'll be admitted to the ICU. Dr. Raphael has been consulted for ICU and vent management. EKG normal sinus rhythm. Chest x-ray negative for any acute pulmonary process. Influenza A is positive. She has evidence of a UTI. She's given Rocephin in the ER and started on Tamiflu. Lactic acid elevated at 5.4. Drug screen is positive for opiates Oxycodone and benzodiazepine. Objective - Vital Signs Vital signs: Vital Signs Temp 98.2 F 10/12/19 08:00 Pulse 88 10/12/19 11:02 Resp 20 10/12/19 08:00 BP 131/69 10/12/19 08:00 Pulse Ox 93 L 10/12/19 08:00 Intake & Output 10/11/19 10/12/19 10/12/19 18:59 06:59 18:59 Intake Total 340 130 Output Total 1000 400 Balance -660 -270 Intake: IV 130 130 KVO 80 130 cefTRIAXone 1 gm In 50 Sodium Chloride 0.9% 50 ml @ 100 mls/hr IVPB Q24HR [facility] Rx#:[id number] Blood Product 210 Output: Urine 1000 400 ABP, PAP, CO, CI - Last Documented Arterial Blood Pressure 168/61 - Exam Patient is alert and oriented 3 she is maintained on BiPAP at this time, she is able to communicate HEENT head normocephalic and atraumatic Neck is supple no JVD no goiter Chest exam reveals coarse crackles bilaterally no wheezing Cardiac exam reveals regular heart sounds no gallops no murmurs Abdomen is soft nontender no organomegaly Extremity exam reveals minimal edema no cyanosis or clubbing Neurological examination reveals no gross focal deficit - Labs CBC & Chem 7: 10/12/19 04:37 10/12/19 04:37 Labs: Abnormal Lab Results - Last 24 Hours (Table) 10/11/19 10/11/19 10/12/19 Range/Units 16:36 20:18 04:37 WBC 14.3 H (3.8-10.6) k/uL RBC 3.72 L (3.80-5.40) m/uL Hgb 10.7 L (11.4-16.0) gm/dL MCHC 30.0 L (31.0-37.0) g/dL Plt Count 127 L (150-450) k/uL Neutrophils # 13.2 H (1.3-7.7) k/uL Lymphocytes # 0.2 L (1.0-4.8) k/uL Chloride (98-107) mmol/L Carbon Dioxide (22-30) mmol/L BUN (7-17) mg/dL Creatinine (0.52-1.04) mg/dL Glucose (74-99) mg/dL POC Glucose (mg/dL) 242 H 264 H (75-99) mg/dL AST (14-36) U/L ALT (4-34) U/L Alkaline Phosphatase (38-126) U/L Total Protein (6.3-8.2) g/dL Albumin (3.5-5.0) g/dL 10/12/19 10/12/19 10/12/19 Range/Units 04:37 06:50 11:40 WBC (3.8-10.6) k/uL RBC (3.80-5.40) m/uL Hgb (11.4-16.0) gm/dL MCHC (31.0-37.0) g/dL Plt Count (150-450) k/uL Neutrophils # (1.3-7.7) k/uL Lymphocytes # (1.0-4.8) k/uL Chloride 84 L (98-107) mmol/L Carbon Dioxide 53 H* (22-30) mmol/L BUN 27 H (7-17) mg/dL Creatinine 0.21 L (0.52-1.04) mg/dL Glucose 230 H (74-99) mg/dL POC Glucose (mg/dL) 213 H 142 H (75-99) mg/dL AST 57 H (14-36) U/L ALT 106 H (4-34) U/L Alkaline Phosphatase 145 H (38-126) U/L Total Protein 4.9 L (6.3-8.2) g/dL Albumin 2.7 L (3.5-5.0) g/dL Assessment and Plan Assessment: Acute on chronic hypercapnic and hypoxic respiratory failure Bilateral pleural effusion small in amount left greater than the right likely related to fluid overload Altered mental status due to CO2 narcosis as well as contributed from pain meds which is on hold Influenza A pneumonia UTI Sepsis Elevated liver enzymes Paroxysmal atrial fibrillation not an anticoagulation due to GI bleed Hypothyroidism End-stage COPD Renal calculi Plan: Continue BiPAP support Supplemental oxygen in between Continue gentle diuresis Broad-spectrum antibiotics Increase activity as tolerated Patient can moved out of the ICU Time with Patient: Greater than 30
--- NOTE | 2019-10-12 15:29 | P.PN ---
Subjective Progress Note Date: 10/12/19 This 64-year-old female with a known history of COPD, chronic hypoxic respiratory failure home O2 dependent, hypothyroidism, chronic back pain, paroxysmal atrial fibrillation, chronic hepatitis C infection, kidney stones. History was obtained from ER report and patient's . She is currently intubated and sedated. And in the ICU. Per her she had been complaining of some shortness of breath and cough over the last several days. She had also recently been at [facility] for COPD exacerbation and was discharged on steroids. He also reports that she was complaining of back pain and thought that it may be her kidney stone bothering her. He believes that she may have taken extra pain medications. The reports that he was trying to get his to the core to bring her to the hospital. While she was walking she started to sway and then fell to the ground and hit her head. He could not get her to wake up. He called EMS. She was found at home by EMS with oxygen saturation 70% and on 2 L nasal cannula. At that time she was minimally responsive. And had developed bag mask ventilation to transport. Patient was intubated on arrival to ER physician. She'll be admitted to the ICU. Dr. Raphael has been consulted for ICU and vent management. EKG normal sinus rhythm. Chest x-ray negative for any acute pulmonary process. Influenza A is positive. She has evidence of a UTI. She's given Rocephin in the ER and started on Tamiflu. Lactic acid elevated at 5.4. Drug screen is positive for opiates Oxycodone and benzodiazepine. On 10/05/2019 patient was seen and examined in the ICU she is alert and oriented 3 in no apparent distress she is still complaining of shortness of breath and complaining of severe pain in her back otherwise she denies any complaints, there is no fever or chills no headache or dizziness no chest pain no nausea or vomiting no abdominal pain no diarrhea no burning with urination no frequency or urgency no hematuria, patient is off BiPAP and is maintained on oxygen via nasal cannula 2 L/m On 10/06/2019 patient remains in the intensive care unit. Patient was extubated to 10/05/2019. Patient is alert and oriented 3 currently on 2 L nasal cannula. Patient concerned about kidney stone. Will consult urology services. Patient is still short of breath with activity. Patient denies chest pain. Patient denies nausea vomiting or diarrhea. Patient denies any urinary burning or frequency On 10/07/2019 patient is alert and oriented 3. Patient remains on 2 L nasal cannula. Patient reports improvement with her shortness of breath. Patient remains on IV steroids and Rocephin antibiotic. Also currently receiving T amiflu. Urology services are following. At this time patient denies chest pain. Patient denies nausea vomiting or diarrhea. Patient denies any urinary burning or frequency On 10/08/2019 patient is alert and oriented 3. Patient maintained on 2 L nasal cannula. Patient does report improvement with shortness of breath. Patient remains on IV steroids and Rocephin antibiotic. Also currently getting Tamiflu for influenza A. No further surgical workup per urology services at this time patient complains of chronic back pain. Patient denies chest pain. Patient denies nausea vomiting or diarrhea. Patient denies any urinary burning or frequency On 10/09/2019 patient is alert and oriented 3. Discussed case with pulmonary team. Patient having elevated CO2 40 8P meds adjusted per pulmonary and BiPAP ordered. Patient is complaining of chronic pain. Patient maintained on home pain management regime. Concerns per pulmonary team in regards to oversedation and respiratory status. Patient denies any nausea vomiting or diarrhea. Patient denies any urinary burning or frequency On 10/10/2019 patient is alert and oriented 3. KERRIE Webster now covering for pulmonary. Dr. Wolfe has been consulted for constriction for possible inpatient rehab which patient is agreeable to highly encouraged. Patient CO2 elevated at 53. Will defer to pulmonary for possible BiPAP. At this time patient denies chest pain or shortness of breath. Patient denies nausea vomiting or diarrhea. Patient denies any urinary burning or frequency On 10/11/2019 patient was seen and examined in the ICU yesterday patient mental status deteriorated she was obtunded and was transferred to intensive care unit she was refusing to wear BiPAP and her CO2 level was very high. Today patient is alert and oriented in no apparent distress nurse in ICU managed to have her use BiPAP machine for a couple of hours, at this time she denies any fever or chills no headache or dizziness no chest pain no nausea or vomiting no abdominal pain no diarrhea and no urinary symptoms. On 10/12/2019 patient was seen and examined in the ICU she is scheduled to be transferred out to medical floor today she is alert and oriented 3 in no apparent distress she is still complaining of cough and is complaining of shortness of breath with any activity she is complaining of generalized weakness and is complaining of back pain otherwise she denies any complaints there is no fever or chills no headache or dizziness no chest pain no nausea or vomiting no abdominal pain no diarrhea no burning with urination no frequency or urgency and no hematuria Objective - Vital Signs Vital signs: Vital Signs Temp 98.2 F 10/12/19 08:00 Pulse 88 10/12/19 11:02 Resp 20 10/12/19 08:00 BP 131/69 10/12/19 08:00 Pulse Ox 93 L 10/12/19 08:00 Intake & Output 10/11/19 10/12/19 10/12/19 18:59 06:59 18:59 Intake Total 340 130 Output Total 1000 400 Balance -660 -270 Intake: IV 130 130 KVO 80 130 cefTRIAXone 1 gm In 50 Sodium Chloride 0.9% 50 ml @ 100 mls/hr IVPB Q24HR [facility] Rx#:[id number] Blood Product 210 Output: Urine 1000 400 ABP, PAP, CO, CI - Last Documented Arterial Blood Pressure 168/61 - Exam Patient is alert and oriented 3 she is maintained on BiPAP at this time, she is able to communicate HEENT head normocephalic and atraumatic Neck is supple no JVD no goiter Chest exam reveals coarse crackles bilaterally no wheezing Cardiac exam reveals regular heart sounds no gallops no murmurs Abdomen is soft nontender no organomegaly Extremity exam reveals minimal edema no cyanosis or clubbing Neurological examination reveals no gross focal deficit - Labs CBC & Chem 7: 10/12/19 04:37 10/12/19 04:37 Labs: Abnormal Lab Results - Last 24 Hours (Table) 10/11/19 10/11/19 10/12/19 Range/Units 16:36 20:18 04:37 WBC 14.3 H (3.8-10.6) k/uL RBC 3.72 L (3.80-5.40) m/uL Hgb 10.7 L (11.4-16.0) gm/dL MCHC 30.0 L (31.0-37.0) g/dL Plt Count 127 L (150-450) k/uL Neutrophils # 13.2 H (1.3-7.7) k/uL Lymphocytes # 0.2 L (1.0-4.8) k/uL Chloride (98-107) mmol/L Carbon Dioxide (22-30) mmol/L BUN (7-17) mg/dL Creatinine (0.52-1.04) mg/dL Glucose (74-99) mg/dL POC Glucose (mg/dL) 242 H 264 H (75-99) mg/dL AST (14-36) U/L ALT (4-34) U/L Alkaline Phosphatase (38-126) U/L Total Protein (6.3-8.2) g/dL Albumin (3.5-5.0) g/dL 10/12/19 10/12/19 10/12/19 Range/Units 04:37 06:50 11:40 WBC (3.8-10.6) k/uL RBC (3.80-5.40) m/uL Hgb (11.4-16.0) gm/dL MCHC (31.0-37.0) g/dL Plt Count (150-450) k/uL Neutrophils # (1.3-7.7) k/uL Lymphocytes # (1.0-4.8) k/uL Chloride 84 L (98-107) mmol/L Carbon Dioxide 53 H* (22-30) mmol/L BUN 27 H (7-17) mg/dL Creatinine 0.21 L (0.52-1.04) mg/dL Glucose 230 H (74-99) mg/dL POC Glucose (mg/dL) 213 H 142 H (75-99) mg/dL AST 57 H (14-36) U/L ALT 106 H (4-34) U/L Alkaline Phosphatase 145 H (38-126) U/L Total Protein 4.9 L (6.3-8.2) g/dL Albumin 2.7 L (3.5-5.0) g/dL Assessment and Plan Plan: 1. Acute on chronic hypoxic and hypercapnic respiratory failure requiring mechanical ventilation. Patient is currently intubated and sedated. Patient has been extubated on 10/05/2019. CO2 elevated will defer to pulmonary possible BiPAP. 2. Unresponsiveness and acute respiratory failure possibly related to pain medication overdose. It is unclear exactly how much pain medication was taken. reports the patient may have taken extra pain medication for her back pain. Resolved 3. Influenza A positive. Patient started on Tamiflu 4. UTI: Continue Rocephin 1 g daily. Check urine culture 5. Sepsis present on admission patient's hypoxic and tachycardic. Blood culture pending. resolved 6. Elevated LFTs: Possibly related to patient's chronic hepatitis C. Patient also has a known liver lesion is stable. And is followed by GI service. 7. History of paroxysmal atrial fibrillation not on anticoagulation due to history of GI bleed 8. History of hyperthyroidism maintained on Tapazole 9. History of chronic low back pain 10. History of COPD and evidence of acute exacerbation. Patient having el evated CO2. Did discuss with pulmonary team. BiPAP ordered. Concerns per pulmonary regards to pain medication and respiratory status pain medications adjusted per pulmonary team. 11. History of kidney stone status post lithotripsy. urology services have been consulted. Per urology services KUB and ultrasound does not identify any hydronephrosis or stone. Per urology services no further intervention required continue treatment for UTI GI prophylaxis Protonix and DVT prophylaxis Lovenox pulmonary service is following. Patient is agreeable at this time for rehab Dr. Wolfe been consulted for inpatient rehabilitation [facility]
[2019-10-12 17:13] LABS: Glucose,Whole Blood 257 mg/dL (75-99)
[2019-10-12 20:21] LABS: Glucose,Whole Blood 156 mg/dL (75-99)
[2019-10-12] MEDS: MONTELUKAST 10 MG TAB PO SCH (21:22)
[2019-10-12] MEDS: PRAMIPEXOLE 0.5 MG TAB PO SCH (21:22)
[2019-10-12] MEDS: DILTIAZEM CD 240 MG CAP.ER.24H PO SCH (21:22)
[2019-10-12] MEDS: ALPRAZolam 0.25 MG TAB PO PRN (22:07)
[2019-10-13] MEDS ORDERED: SODIUM CHLORIDE 0.9% 500 ML 500 ML IV ONE ×2 (05:00→06:14)
[2019-10-13] MEDS: methylPREDNISolone SOD SUCCI 40 MG/ML 1 ML VIAL IV SCH ×3 (05:39→21:14)
[2019-10-13 06:50] LABS: Glucose,Whole Blood 159 mg/dL (75-99)
[2019-10-13 07:04] LABS: Basophils # (A) 0.2 k/uL (0-0.2); Basophils % (A) 1 %; Eosinophils % (A) 0 %; HCT 35.6 % (34.0-46.0); HGB 10.3 gm/dL (11.4-16.0); Hypochromasia Marked; Lymphocytes % (A) 0 %; MCH 28.2 pg (25.0-35.0); MCHC 28.9 g/dL (31.0-37.0); MCV 97.5 fL (80.0-100.0); Mean Platelet Volume 8.6; Monocytes % (A) 6 %; Neutrophils # (A) 15.6 k/uL (1.3-7.7); Neutrophils % (A) 92 %; Platelet Count 125 k/uL (150-450); RBC 3.65 m/uL (3.80-5.40); RDW 15.2 % (11.5-15.5); WBC 16.9 k/uL (3.8-10.6)
[2019-10-13 07:36] LABS: ALT 105 U/L (4-34); AST 87 U/L (14-36); African American GFR (CKD) >90 (>60 ml/min/1.73 sqM); Albumin 2.5 g/dL (3.5-5.0); Alkaline Phosphatase 137 U/L (38-126); Blood Urea Nitrogen 33 mg/dL (7-17); Calcium 7.9 mg/dL (8.4-10.2); Chloride 85 mmol/L (98-107); Glucose 165 mg/dL (74-99); Non-African American GFR(CKD) >90 (>60 ml/min/1.73 sqM); Potassium 3.9 mmol/L (3.5-5.1); Sodium 140 mmol/L (137-145); Total Bilirubin 0.7 mg/dL (0.2-1.3); Total Protein 4.6 g/dL (6.3-8.2)
[2019-10-13 07:42] LABS: Anion Gap 2 mmol/L
[2019-10-13 07:44] LABS: Carbon Dioxide 53 mmol/L (22-30)
[2019-10-13] MEDS: BUDESONIDE 0.5 MG/2 ML NEBU INHALATION SCH ×2 (08:41→20:15)
[2019-10-13] MEDS: IPRATROPIUM-ALBUTEROL 3 ML NEB INHALATION SCH ×4 (08:41→20:15)
[2019-10-13] MEDS: INSULIN ASPART (NovoLOG) 100 UNIT/ML VIAL SQ SCH ×4 (09:00→21:20)
[2019-10-13] MEDS: PANTOPRAZOLE 40 MG TABLET PO SCH (09:01)
[2019-10-13] MEDS: HEPARIN SODIUM,PORCINE 5,000 UNIT/ML 1 ML VIAL SQ SCH ×3 (09:05→21:58)
[2019-10-13] MEDS: FUROSEMIDE 20 MG TAB PO SCH (09:48)
[2019-10-13] MEDS: TAMSULOSIN 0.4 MG CAP.ER.24H PO SCH (09:48)
[2019-10-13] MEDS: DOCUSATE 100 MG CAP PO PRN (09:48)
[2019-10-13] MEDS: METHIMAZOLE 5 MG TAB PO SCH (09:48)
[2019-10-13] MEDS: POTASSIUM CHLORIDE ER 10 MEQ TAB.ER.PRT PO SCH (09:48)
--- NOTE | 2019-10-13 11:21 | P.PN ---
Subjective Progress Note Date: 10/13/19 This 64-year-old female with a known history of COPD, chronic hypoxic respiratory failure home O2 dependent, hypothyroidism, chronic back pain, paroxysmal atrial fibrillation, chronic hepatitis C infection, kidney stones. History was obtained from ER report and patient's . She is currently intubated and sedated. And in the ICU. Per her she had been complaining of some shortness of breath and cough over the last several days. She had also recently been at [facility] for COPD exacerbation and was discharged on steroids. He also reports that she was complaining of back pain and thought that it may be her kidney stone bothering her. He believes that she may have taken extra pain medications. The reports that he was trying to get his to the core to bring her to the hospital. While she was walking she started to sway and then fell to the ground and hit her head. He could not get her to wake up. He called EMS. She was found at home by EMS with oxygen s aturation 70% and on 2 L nasal cannula. At that time she was minimally responsive. And had developed bag mask ventilation to transport. Patient was intubated on arrival to ER physician. She'll be admitted to the ICU. Dr. Raphael has been consulted for ICU and vent management. EKG normal sinus rhythm. Chest x-ray negative for any acute pulmonary process. Influenza A is positive. She has evidence of a UTI. She's given Rocephin in the ER and started on Tamiflu. Lactic acid elevated at 5.4. Drug screen is positive for opiates Oxycodone and benzodiazepine. On 10/05/2019 patient was seen and examined in the ICU she is alert and oriented 3 in no apparent distress she is still complaining of shortness of breath and complaining of severe pain in her back otherwise she denies any complaints, there is no fever or chills no headache or dizziness no chest pain no nausea or vomiting no abdominal pain no diarrhea no burning with urination no frequency or urgency no hematuria, patient is off BiPAP and is maintained on oxygen via nasal cannula 2 L/m On 10/06/2019 patient remains in the intensive care unit. Patient was extubated to 10/05/2019. Patient is alert and oriented 3 currently on 2 L nasal cannula. Patient concerned about kidney stone. Will consult urology services. Patient is still short of breath with activity. Patient denies chest pain. Patient denies nausea vomiting or diarrhea. Patient denies any urinary burning or frequency On 10/07/2019 patient is alert and oriented 3. Patient remains on 2 L nasal cannula. Patient reports improvement with her shortness of breath. Patient remains on IV steroids and Rocephin antibiotic. Also currently receiving Ta miflu. Urology services are following. At this time patient denies chest pain. Patient denies nausea vomiting or diarrhea. Patient denies any urinary burning or frequency On 10/08/2019 patient is alert and oriented 3. Patient maintained on 2 L nasal cannula. Patient does report improvement with shortness of breath. Patient remains on IV steroids and Rocephin antibiotic. Also currently getting Tamiflu for influenza A. No further surgical workup per urology services at this time patient complains of chronic back pain. Patient denies chest pain. Patient denies nausea vomiting or diarrhea. Patient denies any urinary burning or frequency On 10/09/2019 patient is alert and oriented 3. Discussed case with pulmonary team. Patient having elevated CO2 40 8P meds adjusted per pulmonary and BiPAP ordered. Patient is complaining of chronic pain. Patient maintained on home pain management regime. Concerns per pulmonary team in regards to oversedation and respiratory status. Patient denies any nausea vomiting or diarrhea. Patient denies any urinary burning or frequency On 10/10/2019 patient is alert and oriented 3. KERRIE Webster now covering for pulmonary. Dr. Wolfe has been consulted for constriction for possible inpatient rehab which patient is agreeable to highly encouraged. Patient CO2 elevated at 53. Will defer to pulmonary for possible BiPAP. At this time patient denies chest pain or shortness of breath. Patient denies nausea vomiting or diarrhea. Patient denies any urinary burning or frequency On 10/11/2019 patient was seen and examined in the ICU yesterday patient mental status deteriorated she was obtunded and was transferred to intensive care unit she was refusing to wear BiPAP and her CO2 level was very high. Today patient is alert and oriented in no apparent distress nurse in ICU managed to have her use BiPAP machine for a couple of hours, at this time she denies any fever or chills no headache or dizziness no chest pain no nausea or vomiting no abdominal pain no diarrhea and no urinary symptoms. On 10/12/2019 patient was seen and examined in the ICU she is scheduled to be transferred out to medical floor today she is alert and oriented 3 in no apparent distress she is still complaining of cough and is complaining of shortness of breath with any activity she is complaining of generalized weakness and is complaining of back pain otherwise she denies any complaints there is no fever or chills no headache or dizziness no chest pain no nausea or vomiting no abdominal pain no diarrhea no burning with urination no frequency or urgency and no hematuria On 10/13/2019 patient is currently resting comfortably in bed with at bedside. She remains on BiPAP. Per nursing staff last night patient removed BiPAP in the status very low. Patient was lethargic at that time. Explained to patient that she needs to keep the BiPAP on or she will likely requiring mechanical ventilation. Patient verbalized understanding. Patient is now alert and oriented and following commands. Pulmonary services are following. CO2 remains high at 53. Patient denies chest pain. Patient denies nausea vomiting or diarrhea. Patient denies any urinary burning or frequency Objective - Vital Signs Vital signs: Vital Signs Temp 97.5 F L 10/13/19 07:28 Pulse 91 10/13/19 09:01 Resp 16 10/13/19 07:28 BP 113/68 10/13/19 08:31 Pulse Ox 90 L 10/13/19 07:28 Intake & Output 10/12/19 10/13/19 10/13/19 18:59 06:59 18:59 Intake Total 580 Output Total 500 400 Balance 80 -400 Intake: IV 80 KVO 80 Oral 500 Output: Urine 500 400 Other: Voiding Method Incontinent Incontinent Diaper Incontinent ABP, PAP, CO, CI - Last Documented Arterial Blood Pressure 168/61 - Exam Patient is alert and oriented 3 she is maintained on BiPAP at this time, she is able to communicate HEENT head normocephalic and atraumatic Neck is supple no JVD no goiter Chest exam reveals coarse crackles bilaterally no wheezing Cardiac exam reveals regular heart sounds no gallops no murmurs Abdomen is soft nontender no organomegaly Extremity exam reveals minimal edema no cyanosis or clubbing Neurological examination reveals no gross focal deficit - Labs CBC & Chem 7: 10/13/19 06:49 10/13/19 06:49 Labs: Abnormal Lab Results - Last 24 Hours (Table) 10/12/19 10/12/19 10/12/19 Range/Units 11:40 17:11 20:18 WBC (3.8-10.6) k/uL RBC (3.80-5.40) m/uL Hgb (11.4-16.0) gm/dL MCHC (31.0-37.0) g/dL Plt Count (150-450) k/uL Neutrophils # (1.3-7.7) k/uL Lymphocytes # (1.0-4.8) k/uL Chloride (98-107) mmol/L Carbon Dioxide (22-30) mmol/L BUN (7-17) mg/dL Creatinine (0.52-1.04) mg/dL Glucose (74-99) mg/dL POC Glucose (mg/dL) 142 H 257 H 156 H (75-99) mg/dL Calcium (8.4-10.2) mg/dL AST (14-36) U/L ALT (4-34) U/L Alkaline Phosphatase (38-126) U/L Total Protein (6.3-8.2) g/dL Albumin (3.5-5.0) g/dL 10/13/19 10/13/19 10/13/19 Range/Units 06:49 06:49 06:49 WBC 16.9 H (3.8-10.6) k/uL RBC 3.65 L (3.80-5.40) m/uL Hgb 10.3 L (11.4-16.0) gm/dL MCHC 28.9 L (31.0-37.0) g/dL Plt Count 125 L (150-450) k/uL Neutrophils # 15.6 H (1.3-7.7) k/uL Lymphocytes # 0.0 L (1.0-4.8) k/uL Chloride 85 L (98-107) mmol/L Carbon Dioxide 53 H* (22-30) mmol/L BUN 33 H (7-17) mg/dL Creatinine 0.35 L (0.52-1.04) mg/dL Glucose 165 H (74-99) mg/dL POC Glucose (mg/dL) 159 H (75-99) mg/dL Calcium 7.9 L (8.4-10.2) mg/dL AST 87 H (14-36) U/L ALT 105 H (4-34) U/L Alkaline Phosphatase 137 H (38-126) U/L Total Protein 4.6 L (6.3-8.2) g/dL Albumin 2.5 L (3.5-5.0) g/dL Assessment and Plan Assessment: 1. Acute on chronic hypoxic and hypercapnic respiratory failure requiring mechanical ventilation. Patient is currently intubated and sedated. Patient has been extubated on 10/05/2019. CO2 remains elevated. Pulmonary services are following patient may be maintained on BiPAP at this time 2. Unresponsiveness and acute respiratory failure possibly related to pain medication overdose. It is unclear exactly how much pain medication was taken. reports the patient may have taken extra pain medication for her back pain. Resolved 3. Influenza A positive. Patient started on Tamiflu 4. UTI: Continue Rocephin 1 g daily. Check urine culture 5. Sepsis present on admission patient's hypoxic and tachycardic. Blood cultu re pending. resolved 6. Elevated LFTs: Possibly related to patient's chronic hepatitis C. Patient also has a known liver lesion is stable. And is followed by GI service. 7. History of paroxysmal atrial fibrillation not on anticoagulation due to history of GI bleed 8. History of hyperthyroidism maintained on Tapazole 9. History of chronic low back pain 10. History of COPD and evidence of acute exacerbation. Patient having elevated CO2. Did discuss with pulmonary team. BiPAP ordered. Concerns per pulmonary regards to pain medication and respiratory status pain medications adjusted per pulmonary team. 11. History of kidney stone status post lithotripsy. urology services have been consulted. Per urology services KUB and ultrasound does not identify any hydronephrosis or stone. Per urology services no further intervention required continue treatment for UTI GI prophylaxis Protonix and DVT prophylaxis heparin pulmonary service is following. Bipap ordered I performed an examination of the patient and discussed their management with the Nurse Practitioner. I have reviewed the Nurse Practitioner's notes and agree with the documented findings and plan of care
[2019-10-13 12:16] LABS: Glucose,Whole Blood 157 mg/dL (75-99)
[2019-10-13] MEDS: HYDROcodone/APAP 10-325MG 1 EACH TAB PO PRN ×2 (12:29→21:14)
[2019-10-13 14:31] VITALS: BMI 19.6
[2019-10-13 17:34] LABS: Glucose,Whole Blood 211 mg/dL (75-99)
[2019-10-13] MEDS: MONTELUKAST 10 MG TAB PO SCH (21:14)
[2019-10-13] MEDS: PRAMIPEXOLE 0.5 MG TAB PO SCH (21:14)
[2019-10-13] MEDS: DILTIAZEM CD 240 MG CAP.ER.24H PO SCH (21:14)
[2019-10-13] MEDS: ALPRAZolam 0.25 MG TAB PO SCH (21:20)
[2019-10-13 21:21] LABS: Glucose,Whole Blood 197 mg/dL (75-99)
--- NOTE | 2019-10-13 22:53 | PN ---
PROGRESS NOTE DATE OF SERVICE: 10/13/2019 This patient has remained hemodynamically stable. She continues to have shortness of breath and has been using BiPAP. On physical examination, she is lying in bed. Her respiratory rate is 20, pulse rate 70, temperature 97, blood pressure 116/56, oxygen saturation on 3 L by nasal cannula 94%. HEENT is unremarkable. Chest reveals decreased breath sounds with prolonged exhalation. Cardiovascular system is in S1, S2. Abdomen is soft. There is trace to 1+ pedal edema. IMPRESSION AT THIS TIME: 1. Acute respiratory failure requiring mechanical ventilation. 2. Chronic respiratory failure, for which she will benefit from outpatient BiPAP. 3. Cough, for which she would benefit from Vest therapy. 4. History of paroxysmal atrial fibrillation. 5. Metabolic encephalopathy. 6. Urinary tract infection. Continue her on her current medications. Support her with BiPAP as well as oxygen. Continue her on Tamiflu for influenza. Discharge planning from a pulmonary perspective would be best in an inpatient rehab setting. Depending on how she does, we shall make further changes to her care. She was counseled regarding her condition. MMODL / IJN: [id number] /
[2019-10-13] MEDS: ALBUTEROL NEBULIZED 2.5 MG/3 ML INHALATION PRN (23:11)
[2019-10-14] MEDS: ALBUTEROL NEBULIZED 2.5 MG/3 ML INHALATION PRN (02:08)
[2019-10-14] MEDS: methylPREDNISolone SOD SUCCI 40 MG/ML 1 ML VIAL IV SCH ×3 (04:31→21:16)
[2019-10-14] MEDS: HYDROcodone/APAP 10-325MG 1 EACH TAB PO PRN ×3 (04:33→17:27)
[2019-10-14 07:00] LABS: Glucose,Whole Blood 134 mg/dL (75-99)
[2019-10-14] MEDS: BUDESONIDE 0.5 MG/2 ML NEBU INHALATION SCH ×2 (07:15→21:01)
[2019-10-14] MEDS: IPRATROPIUM-ALBUTEROL 3 ML NEB INHALATION SCH ×4 (07:15→21:02)
[2019-10-14] MEDS: TAMSULOSIN 0.4 MG CAP.ER.24H PO SCH (07:31)
[2019-10-14] MEDS: DOCUSATE 100 MG CAP PO PRN (07:31)
[2019-10-14] MEDS: POTASSIUM CHLORIDE ER 10 MEQ TAB.ER.PRT PO SCH (07:32)
[2019-10-14] MEDS: PANTOPRAZOLE 40 MG TABLET PO SCH (07:32)
[2019-10-14] MEDS: METHIMAZOLE 5 MG TAB PO SCH (07:32)
[2019-10-14] MEDS: HEPARIN SODIUM,PORCINE 5,000 UNIT/ML 1 ML VIAL SQ SCH ×2 (07:32→21:10)
[2019-10-14] MEDS: FUROSEMIDE 20 MG TAB PO SCH (07:32)
[2019-10-14] MEDS: INSULIN ASPART (NovoLOG) 100 UNIT/ML VIAL SQ SCH ×4 (07:34→21:17)
[2019-10-14] MEDS: ALPRAZolam 0.25 MG TAB PO SCH ×2 (07:34→21:09)
[2019-10-14 09:37] LABS: Basophils % (A) 0 %; Eosinophils % (A) 0 %; HCT 36.1 % (34.0-46.0); HGB 10.9 gm/dL (11.4-16.0); Hypochromasia Marked; Lymphocytes # (A) 0.2 k/uL (1.0-4.8); Lymphocytes % (A) 1 %; MCH 28.8 pg (25.0-35.0); MCHC 30.2 g/dL (31.0-37.0); MCV 95.5 fL (80.0-100.0); Monocytes # (A) 0.6 k/uL (0-1.0); Monocytes % (A) 4 %; Neutrophils # (A) 17.1 k/uL (1.3-7.7); Neutrophils % (A) 94 %; Platelet Count 102 k/uL (150-450); RBC 3.78 m/uL (3.80-5.40); RDW 15.2 % (11.5-15.5); WBC 18.1 k/uL (3.8-10.6)
--- NOTE | 2019-10-14 10:14 | P.PN ---
Subjective Progress Note Date: 10/14/19 This 64-year-old female with a known history of COPD, chronic hypoxic respiratory failure home O2 dependent, hypothyroidism, chronic back pain, paroxysmal atrial fibrillation, chronic hepatitis C infection, kidney stones. History was obtained from ER report and patient's . She is currently intubated and sedated. And in the ICU. Per her she had been complaining of some shortness of breath and cough over the last several days. She had also recently been at [facility] for COPD exacerbation and was discharged on steroids. He also reports that she was complaining of back pain and thought that it may be her kidney stone bothering her. He believes that she may have taken extra pain medications. The reports that he was trying to get his to the core to bring her to the hospital. While she was walking she started to sway and then fell to the ground and hit her head. He could not get her to wake up. He called EMS. She was found at home by EMS with oxygen s aturation 70% and on 2 L nasal cannula. At that time she was minimally responsive. And had developed bag mask ventilation to transport. Patient was intubated on arrival to ER physician. She'll be admitted to the ICU. Dr. Raphael has been consulted for ICU and vent management. EKG normal sinus rhythm. Chest x-ray negative for any acute pulmonary process. Influenza A is positive. She has evidence of a UTI. She's given Rocephin in the ER and started on Tamiflu. Lactic acid elevated at 5.4. Drug screen is positive for opiates Oxycodone and benzodiazepine. On 10/05/2019 patient was seen and examined in the ICU she is alert and oriented 3 in no apparent distress she is still complaining of shortness of breath and complaining of severe pain in her back otherwise she denies any complaints, there is no fever or chills no headache or dizziness no chest pain no nausea or vomiting no abdominal pain no diarrhea no burning with urination no frequency or urgency no hematuria, patient is off BiPAP and is maintained on oxygen via nasal cannula 2 L/m On 10/06/2019 patient remains in the intensive care unit. Patient was extubated to 10/05/2019. Patient is alert and oriented 3 currently on 2 L nasal cannula. Patient concerned about kidney stone. Will consult urology services. Patient is still short of breath with activity. Patient denies chest pain. Patient denies nausea vomiting or diarrhea. Patient denies any urinary burning or frequency On 10/07/2019 patient is alert and oriented 3. Patient remains on 2 L nasal cannula. Patient reports improvement with her shortness of breath. Patient remains on IV steroids and Rocephin antibiotic. Also currently receiving Ta miflu. Urology services are following. At this time patient denies chest pain. Patient denies nausea vomiting or diarrhea. Patient denies any urinary burning or frequency On 10/08/2019 patient is alert and oriented 3. Patient maintained on 2 L nasal cannula. Patient does report improvement with shortness of breath. Patient remains on IV steroids and Rocephin antibiotic. Also currently getting Tamiflu for influenza A. No further surgical workup per urology services at this time patient complains of chronic back pain. Patient denies chest pain. Patient denies nausea vomiting or diarrhea. Patient denies any urinary burning or frequency On 10/09/2019 patient is alert and oriented 3. Discussed case with pulmonary team. Patient having elevated CO2 40 8P meds adjusted per pulmonary and BiPAP ordered. Patient is complaining of chronic pain. Patient maintained on home pain management regime. Concerns per pulmonary team in regards to oversedation and respiratory status. Patient denies any nausea vomiting or diarrhea. Patient denies any urinary burning or frequency On 10/10/2019 patient is alert and oriented 3. KERRIE Webster now covering for pulmonary. Dr. Wolfe has been consulted for constriction for possible inpatient rehab which patient is agreeable to highly encouraged. Patient CO2 elevated at 53. Will defer to pulmonary for possible BiPAP. At this time patient denies chest pain or shortness of breath. Patient denies nausea vomiting or diarrhea. Patient denies any urinary burning or frequency On 10/11/2019 patient was seen and examined in the ICU yesterday patient mental status deteriorated she was obtunded and was transferred to intensive care unit she was refusing to wear BiPAP and her CO2 level was very high. Today patient is alert and oriented in no apparent distress nurse in ICU managed to have her use BiPAP machine for a couple of hours, at this time she denies any fever or chills no headache or dizziness no chest pain no nausea or vomiting no abdominal pain no diarrhea and no urinary symptoms. On 10/12/2019 patient was seen and examined in the ICU she is scheduled to be transferred out to medical floor today she is alert and oriented 3 in no apparent distress she is still complaining of cough and is complaining of shortness of breath with any activity she is complaining of generalized weakness and is complaining of back pain otherwise she denies any complaints there is no fever or chills no headache or dizziness no chest pain no nausea or vomiting no abdominal pain no diarrhea no burning with urination no frequency or urgency and no hematuria On 10/13/2019 patient is currently resting comfortably in bed with at bedside. She remains on BiPAP. Per nursing staff last night patient removed BiPAP in the status very low. Patient was lethargic at that time. Explained to patient that she needs to keep the BiPAP on or she will likely requiring mechanical ventilation. Patient verbalized understanding. Patient is now alert and oriented and following commands. Pulmonary services are following. CO2 remains high at 53. Patient denies chest pain. Patient denies nausea vomiting or diarrhea. Patient denies any urinary burning or frequency On 10/14/2019 patient is currently alert and oriented resting comfortably in bed. remains at that site. Patient reports she does not like to wear the BiPAP. Educated the importance of wearing BiPAP in order to correct CO2 level. Patient did verbalize understanding. Also recommend that we continue discharge planning to rehab. Patient and are in agreement. Consult has been placed for Dr. Wolfe social work services are following. Patient remains on Solu-Medrol and DuoNeb breathing treatments. Patient denies chest pain. Patient denies nausea vomiting or diarrhea. Patient denies any urinary burning or frequency Objective - Vital Signs Vital signs: Vital Signs Temp 98.3 F 10/14/19 05:00 Pulse 76 10/14/19 07:31 Resp 18 10/14/19 05:00 BP 115/59 10/14/19 05:00 Pulse Ox 93 L 10/14/19 05:00 Intake & Output 10/13/19 10/14/19 10/14/19 18:59 06:59 18:59 Intake Total 100 Balance 100 Weight 50.4 kg Intake: Oral 100 Other: Voiding Method Bedpan Bedpan Bedpan Diaper Diaper Diaper Incontinent Incontinent Incontinent # Voids 3 ABP, PAP, CO, CI - Last Documented Arterial Blood Pressure 168/61 - Exam Patient is alert and oriented 3 she is maintained on BiPAP at this time, she is able to communicate HEENT head normocephalic and atraumatic Neck is supple no JVD no goiter Chest exam reveals coarse crackles bilaterally no wheezing Cardiac exam reveals regular heart sounds no gallops no murmurs Abdomen is soft nontender no organomegaly Extremity exam reveals minimal edema no cyanosis or clubbing Neurological examination reveals no gross focal deficit - Labs CBC & Chem 7: 10/14/19 08:19 10/13/19 06:49 Labs: Abnormal Lab Results - Last 24 Hours (Table) 10/13/19 10/13/19 10/13/19 Range/Units 12:15 17:32 21:17 WBC (3.8-10.6) k/uL RBC (3.80-5.40) m/uL Hgb (11.4-16.0) gm/dL MCHC (31.0-37.0) g/dL Plt Count (150-450) k/uL Neutrophils # (1.3-7.7) k/uL Lymphocytes # (1.0-4.8) k/uL POC Glucose (mg/dL) 157 H 211 H 197 H (75-99) mg/dL 10/14/19 10/14/19 Range/Units 06:59 08:19 WBC 18.1 H (3.8-10.6) k/uL RBC 3.78 L (3.80-5.40) m/uL Hgb 10.9 L (11.4-16.0) gm/dL MCHC 30.2 L (31.0-37.0) g/dL Plt Count 102 L (150-450) k/uL Neutrophils # 17.1 H (1.3-7.7) k/uL Lymphocytes # 0.2 L (1.0-4.8) k/uL POC Glucose (mg/dL) 134 H (75-99) mg/dL Assessment and Plan Assessment: 1. Acute on chronic hypoxic and hypercapnic respiratory failure requiring mechanical ventilation. Patient is currently intubated and sedated. Patient has been extubated on 10/05/2019. CO2 remains elevated. Pulmonary services are following patient may be maintained on BiPAP at this time 2. Unresponsiveness and acute respiratory failure possibly related to pain medication overdose. It is unclear exactly how much pain medication was taken. reports the patient may have taken extra pain medication for her back pain. Resolved 3. Influenza A positive. Patient started on Tamiflu. Patient has completed treatment 4. UTI: Continue Rocephin 1 g daily. Check urine culture 5. Sepsis present on admission patient's hypoxic and tachycardic. Blood culture showing no growth resolved 6. Elevated LFTs: Possibly related to patient's chronic hepatitis C. Patient a lso has a known liver lesion is stable. And is followed by GI service. 7. History of paroxysmal atrial fibrillation not on anticoagulation due to history of GI bleed 8. History of hyperthyroidism maintained on Tapazole 9. History of chronic low back pain 10. History of COPD and evidence of acute exacerbation. Patient having elevated CO2. Did discuss with pulmonary team. BiPAP ordered. Concerns per pulmonary regards to pain medication and respiratory status pain medications adjusted per pulmonary team. 11. History of kidney stone status post lithotripsy. urology services have be en consulted. Per urology services KUB and ultrasound does not identify any hydronephrosis or stone. Per urology services no further intervention required continue treatment for UTI GI prophylaxis Protonix and DVT prophylaxis heparin pulmonary service is following. Bipap ordered I performed an examination of the patient and discussed their management with the Nurse Practitioner. I have reviewed the Nurse Practitioner's notes and agree with the documented findings and plan of care
[2019-10-14 10:21] LABS: ALT 108 U/L (4-34); AST 45 U/L (14-36); African American GFR (CKD) >90 (>60 ml/min/1.73 sqM); Albumin 2.6 g/dL (3.5-5.0); Alkaline Phosphatase 141 U/L (38-126); Blood Urea Nitrogen 35 mg/dL (7-17); Calcium 8.2 mg/dL (8.4-10.2); Chloride 86 mmol/L (98-107); Glucose 167 mg/dL (74-99); Non-African American GFR(CKD) >90 (>60 ml/min/1.73 sqM); Potassium 5.3 mmol/L (3.5-5.1); Sodium 138 mmol/L (137-145); Total Bilirubin 0.5 mg/dL (0.2-1.3); Total Protein 4.8 g/dL (6.3-8.2)
[2019-10-14 10:27] LABS: Anion Gap 2 mmol/L
[2019-10-14 11:07] LABS: Carbon Dioxide 50 mmol/L (22-30)
[2019-10-14 12:03] LABS: Glucose,Whole Blood 255 mg/dL (75-99)
[2019-10-14 17:05] LABS: Glucose,Whole Blood 158 mg/dL (75-99)
[2019-10-14 20:20] LABS: Glucose,Whole Blood 201 mg/dL (75-99)
[2019-10-14] MEDS: PRAMIPEXOLE 0.5 MG TAB PO SCH (21:16)
[2019-10-14] MEDS: MONTELUKAST 10 MG TAB PO SCH (21:16)
[2019-10-14] MEDS: DILTIAZEM CD 240 MG CAP.ER.24H PO SCH (21:16)
--- NOTE | 2019-10-14 22:52 | PN ---
PROGRESS NOTE DATE OF SERVICE: 10/14/2019 This patient has been hemodynamically stable. She continues to have shortness of breath and had an episode where she was on BiPAP and became unresponsive. On physical examination, her respiratory rate is 18, pulse rate of 74, blood pressure 125/71, oxygen saturation on 3 L by nasal cannula 92%. HEENT is unremarkable. Chest reveals decreased breath sounds with prolonged exhalation. There is expiratory wheeze. Cardiovascular system reveals an S1, S2. Abdomen is soft. There is no edema. Labs and medications were reviewed. IMPRESSION AT THIS TIME: 1. Acute on chronic respiratory failure. 2. Severe asthma with chronic obstructive pulmonary disease with acute exacerbation. 3. Medical debility. Continue BiPAP as tolerated. Continue supportive care for influenza A. Continue Rocephin. Increase her activity level. Discharge planning possibly for inpatient rehab. She was counseled regarding her condition. MMODL / KONGN: [id number] /
[2019-10-15] MEDS: methylPREDNISolone SOD SUCCI 40 MG/ML 1 ML VIAL IV SCH ×2 (03:15→13:18)
[2019-10-15] MEDS: HYDROcodone/APAP 10-325MG 1 EACH TAB PO PRN ×3 (03:40→16:57)
[2019-10-15 07:16] LABS: Glucose,Whole Blood 174 mg/dL (75-99)
[2019-10-15] MEDS: ALPRAZolam 0.25 MG TAB PO SCH ×2 (07:49→08:12)
[2019-10-15] MEDS: TAMSULOSIN 0.4 MG CAP.ER.24H PO SCH (07:49)
[2019-10-15] MEDS: PANTOPRAZOLE 40 MG TABLET PO SCH (07:49)
[2019-10-15] MEDS: POTASSIUM CHLORIDE ER 10 MEQ TAB.ER.PRT PO SCH ×2 (07:49→08:01)
[2019-10-15] MEDS: INSULIN ASPART (NovoLOG) 100 UNIT/ML VIAL SQ SCH ×4 (07:50→20:36)
[2019-10-15] MEDS: HEPARIN SODIUM,PORCINE 5,000 UNIT/ML 1 ML VIAL SQ SCH ×3 (07:50→21:14)
[2019-10-15] MEDS: FUROSEMIDE 20 MG TAB PO SCH (07:50)
[2019-10-15] MEDS: METHIMAZOLE 5 MG TAB PO SCH (07:50)
[2019-10-15] MEDS: IPRATROPIUM-ALBUTEROL 3 ML NEB INHALATION SCH ×4 (08:16→20:32)
[2019-10-15] MEDS: BUDESONIDE 0.5 MG/2 ML NEBU INHALATION SCH ×2 (08:16→20:29)
[2019-10-15 08:50] LABS: Basophils # (A) 0.1 k/uL (0-0.2); Basophils % (A) 0 %; Eosinophils % (A) 0 %; HGB 10.6 gm/dL (11.4-16.0); Hypochromasia Marked; Lymphocytes # (A) 0.2 k/uL (1.0-4.8); Lymphocytes % (A) 1 %; MCH 27.8 pg (25.0-35.0); MCHC 28.6 g/dL (31.0-37.0); MCV 97.5 fL (80.0-100.0); Mean Platelet Volume 8.5; Monocytes # (A) 0.7 k/uL (0-1.0); Monocytes % (A) 3 %; Neutrophils % (A) 94 %; Platelet Count 132 k/uL (150-450); RBC 3.79 m/uL (3.80-5.40); RDW 15.1 % (11.5-15.5); WBC 20.2 k/uL (3.8-10.6)
[2019-10-15 08:56] LABS: ALT 100 U/L (4-34); AST 43 U/L (14-36); African American GFR (CKD) >90 (>60 ml/min/1.73 sqM); Albumin 2.9 g/dL (3.5-5.0); Alkaline Phosphatase 132 U/L (38-126); Blood Urea Nitrogen 31 mg/dL (7-17); Calcium 8.4 mg/dL (8.4-10.2); Chloride 84 mmol/L (98-107); Glucose 174 mg/dL (74-99); Non-African American GFR(CKD) >90 (>60 ml/min/1.73 sqM); Potassium 4.9 mmol/L (3.5-5.1); Sodium 138 mmol/L (137-145); Total Bilirubin 0.7 mg/dL (0.2-1.3); Total Protein 5.2 g/dL (6.3-8.2)
[2019-10-15 09:04] LABS: Anion Gap 3 mmol/L
[2019-10-15 09:09] LABS: Carbon Dioxide 51 mmol/L (22-30)
[2019-10-15 11:22] LABS: Glucose,Whole Blood 237 mg/dL (75-99)
[2019-10-15] MEDS ORDERED: ALPRAZolam 0.25 MG TAB PO PRN (11:48)
--- NOTE | 2019-10-15 13:16 | P.PN ---
Subjective Progress Note Date: 10/15/19 This 64-year-old female with a known history of COPD, chronic hypoxic respiratory failure home O2 dependent, hypothyroidism, chronic back pain, paroxysmal atrial fibrillation, chronic hepatitis C infection, kidney stones. History was obtained from ER report and patient's . She is currently intubated and sedated. And in the ICU. Per her she had been complaining of some shortness of breath and cough over the last several days. She had also recently been at [facility] for COPD exacerbation and was discharged on steroids. He also reports that she was complaining of back pain and thought that it may be her kidney stone bothering her. He believes that she may have taken extra pain medications. The reports that he was trying to get his to the core to bring her to the hospital. While she was walking she started to sway and then fell to the ground and hit her head. He could not get her to wake up. He called EMS. She was found at home by EMS with oxygen s aturation 70% and on 2 L nasal cannula. At that time she was minimally responsive. And had developed bag mask ventilation to transport. Patient was intubated on arrival to ER physician. She'll be admitted to the ICU. Dr. Raphael has been consulted for ICU and vent management. EKG normal sinus rhythm. Chest x-ray negative for any acute pulmonary process. Influenza A is positive. She has evidence of a UTI. She's given Rocephin in the ER and started on Tamiflu. Lactic acid elevated at 5.4. Drug screen is positive for opiates Oxycodone and benzodiazepine. On 10/05/2019 patient was seen and examined in the ICU she is alert and oriented 3 in no apparent distress she is still complaining of shortness of breath and complaining of severe pain in her back otherwise she denies any complaints, there is no fever or chills no headache or dizziness no chest pain no nausea or vomiting no abdominal pain no diarrhea no burning with urination no frequency or urgency no hematuria, patient is off BiPAP and is maintained on oxygen via nasal cannula 2 L/m On 10/06/2019 patient remains in the intensive care unit. Patient was extubated to 10/05/2019. Patient is alert and oriented 3 currently on 2 L nasal cannula. Patient concerned about kidney stone. Will consult urology services. Patient is still short of breath with activity. Patient denies chest pain. Patient denies nausea vomiting or diarrhea. Patient denies any urinary burning or frequency On 10/07/2019 patient is alert and oriented 3. Patient remains on 2 L nasal cannula. Patient reports improvement with her shortness of breath. Patient remains on IV steroids and Rocephin antibiotic. Also currently receiving Ta miflu. Urology services are following. At this time patient denies chest pain. Patient denies nausea vomiting or diarrhea. Patient denies any urinary burning or frequency On 10/08/2019 patient is alert and oriented 3. Patient maintained on 2 L nasal cannula. Patient does report improvement with shortness of breath. Patient remains on IV steroids and Rocephin antibiotic. Also currently getting Tamiflu for influenza A. No further surgical workup per urology services at this time patient complains of chronic back pain. Patient denies chest pain. Patient denies nausea vomiting or diarrhea. Patient denies any urinary burning or frequency On 10/09/2019 patient is alert and oriented 3. Discussed case with pulmonary team. Patient having elevated CO2 40 8P meds adjusted per pulmonary and BiPAP ordered. Patient is complaining of chronic pain. Patient maintained on home pain management regime. Concerns per pulmonary team in regards to oversedation and respiratory status. Patient denies any nausea vomiting or diarrhea. Patient denies any urinary burning or frequency On 10/10/2019 patient is alert and oriented 3. KERRIE Webster now covering for pulmonary. Dr. Wolfe has been consulted for constriction for possible inpatient rehab which patient is agreeable to highly encouraged. Patient CO2 elevated at 53. Will defer to pulmonary for possible BiPAP. At this time patient denies chest pain or shortness of breath. Patient denies nausea vomiting or diarrhea. Patient denies any urinary burning or frequency On 10/11/2019 patient was seen and examined in the ICU yesterday patient mental status deteriorated she was obtunded and was transferred to intensive care unit she was refusing to wear BiPAP and her CO2 level was very high. Today patient is alert and oriented in no apparent distress nurse in ICU managed to have her use BiPAP machine for a couple of hours, at this time she denies any fever or chills no headache or dizziness no chest pain no nausea or vomiting no abdominal pain no diarrhea and no urinary symptoms. On 10/12/2019 patient was seen and examined in the ICU she is scheduled to be transferred out to medical floor today she is alert and oriented 3 in no apparent distress she is still complaining of cough and is complaining of shortness of breath with any activity she is complaining of generalized weakness and is complaining of back pain otherwise she denies any complaints there is no fever or chills no headache or dizziness no chest pain no nausea or vomiting no abdominal pain no diarrhea no burning with urination no frequency or urgency and no hematuria On 10/13/2019 patient is currently resting comfortably in bed with at bedside. She remains on BiPAP. Per nursing staff last night patient removed BiPAP in the status very low. Patient was lethargic at that time. Explained to patient that she needs to keep the BiPAP on or she will likely requiring mechanical ventilation. Patient verbalized understanding. Patient is now alert and oriented and following commands. Pulmonary services are following. CO2 remains high at 53. Patient denies chest pain. Patient denies nausea vomiting or diarrhea. Patient denies any urinary burning or frequency On 10/14/2019 patient is currently alert and oriented resting comfortably in bed. remains at that site. Patient reports she does not like to wear the BiPAP. Educated the importance of wearing BiPAP in order to correct CO2 level. Patient did verbalize understanding. Also recommend that we continue discharge planning to rehab. Patient and are in agreement. Consult has been placed for Dr. Wolfe social work services are following. Patient remains on Solu-Medrol and DuoNeb breathing treatments. Patient denies chest pain. Patient denies nausea vomiting or diarrhea. Patient denies any urinary burning or frequency On 10/15/2019 patient is currently alert and oriented 3 resting comfortably in bed. is at bedside requesting Xanax be DC'd. Patient is in agreement will change Xanax to when necessary but explained that patient needs to be wearing BiPAP at night due to her elevated CO2 levels. Patient and did verbalize understanding. Pulmonary services are following Objective - Vital Signs Vital signs: Vital Signs Temp 98.1 F 10/15/19 11:44 Pulse 76 10/15/19 11:54 Resp 18 10/15/19 11:44 BP 123/62 10/15/19 11:44 Pulse Ox 93 L 10/15/19 11:44 Intake & Output 03/03/20 03/04/20 03/04/20 18:59 06:59 18:59 Intake Total 1600 1180 Balance 1600 1180 Intake: Intake, IV Titration 50 Amount cefTRIAXone 1 gm In 50 Sodium Chloride 0.9% 50 ml @ 100 mls/hr IVPB Q24HR [facility] Rx#:[id number] Oral 1550 1180 Other: Voiding Method Bedpan Bedpan Diaper Diaper Incontinent Incontinent # Voids 1 3 1 ABP, PAP, CO, CI - Last Documented Arterial Blood Pressure 168/61 - Exam Patient is alert and oriented 3 she is maintained on BiPAP at this time, she is able to communicate HEENT head normocephalic and atraumatic Neck is supple no JVD no goiter Chest exam reveals coarse crackles bilaterally no wheezing Cardiac exam reveals regular heart sounds no gallops no murmurs Abdomen is soft nontender no organomegaly Extremity exam reveals minimal edema no cyanosis or clubbing Neurological examination reveals no gross focal deficit - Labs CBC & Chem 7: 10/15/19 08:02 10/15/19 08:02 Labs: Abnormal Lab Results - Last 24 Hours (Table) 10/14/19 10/14/19 10/15/19 Range/Units 16:57 20:19 07:12 WBC (3.8-10.6) k/uL RBC (3.80-5.40) m/uL Hgb (11.4-16.0) gm/dL MCHC (31.0-37.0) g/dL Plt Count (150-450) k/uL Neutrophils # (1.3-7.7) k/uL Lymphocytes # (1.0-4.8) k/uL Chloride (98-107) mmol/L Carbon Dioxide (22-30) mmol/L BUN (7-17) mg/dL Creatinine (0.52-1.04) mg/dL Glucose (74-99) mg/dL POC Glucose (mg/dL) 158 H 201 H 174 H (75-99) mg/dL AST (14-36) U/L ALT (4-34) U/L Alkaline Phosphatase (38-126) U/L Total Protein (6.3-8.2) g/dL Albumin (3.5-5.0) g/dL 10/15/19 10/15/19 10/15/19 Range/Units 08:02 08:02 11:21 WBC 20.2 H (3.8-10.6) k/uL RBC 3.79 L (3.80-5.40) m/uL Hgb 10.6 L (11.4-16.0) gm/dL MCHC 28.6 L (31.0-37.0) g/dL Plt Count 132 L (150-450) k/uL Neutrophils # 19.0 H (1.3-7.7) k/uL Lymphocytes # 0.2 L (1.0-4.8) k/uL Chloride 84 L (98-107) mmol/L Carbon Dioxide 51 H* (22-30) mmol/L BUN 31 H (7-17) mg/dL Creatinine 0.24 L (0.52-1.04) mg/dL Glucose 174 H (74-99) mg/dL POC Glucose (mg/dL) 237 H (75-99) mg/dL AST 43 H (14-36) U/L ALT 100 H (4-34) U/L Alkaline Phosphatase 132 H (38-126) U/L Total Protein 5.2 L (6.3-8.2) g/dL Albumin 2.9 L (3.5-5.0) g/dL Assessment and Plan Assessment: 1. Acute on chronic hypoxic and hypercapnic respiratory failure requiring mechanical ventilation. Patient is currently intubated and sedated. Patient has been extubated on 10/05/2019. CO2 remains elevated. Pulmonary services are following patient may be maintained on BiPAP at this time 2. Unresponsiveness and acute respiratory failure possibly related to pain medication overdose. It is unclear exactly how much pain medication was taken. reports the patient may have taken extra pain medication for her back pain. Resolved 3. Influenza A positive. Patient started on Tamiflu. Patient has completed treatment 4. UTI: Continue Rocephin 1 g daily. Check urine culture 5. Sepsis present on admission patient's hypoxic and tachycardic. Blood culture showing no growth resolved 6. Elevated LFTs: Possibly related to patient's chronic hepatitis C. Patient also has a known liver lesion is stable. And is followed by GI service. 7. History of paroxysmal atrial fibrillation not on anticoagulation due to history of GI bleed 8. History of hyperthyroidism maintained on Tapazole 9. History of chronic low back pain 10. History of COPD and evidence of acute exacerbation. Patient having elevated CO2. Did discuss with pulmonary team. BiPAP ordered. Concerns per pulmonary regards to pain medication and respiratory status pain medications adjusted per pulmonary team. 11. History of kidney stone status post lithotripsy. urology services have been consulted. Per urology services KUB and ultrasound does not identify any hydronephrosis or stone. Per urology services no further intervention required continue treatment for UTI GI prophylaxis Protonix and DVT prophylaxis heparin pulmonary service is following. Bipap ordered I performed an examination of the patient and discussed their management with the Nurse Practitioner. I have reviewed the Nurse Practitioner's notes and agree with the documented findings and plan of care
--- NOTE | 2019-10-15 13:34 | CDI ---
Documentation Clarification Form Date: 10/15/2019 01:27:09 PM From: Luz Smauels RN, CCDS Admit Date: 10/03/2019 03:15:00 PM Patient Name: Lula Weathers Visit Number: [id number] ATTENTION: The Clinical Documentation Specialists (CDI) and [facility] Coding Staff appreciate your assistance in clarifying documentation. Please respond to the clarification below the line at the bottom and electronically sign. The CDI & [facility] Coding staff will review the response and follow-up if needed. Please note: Queries are made part of the Legal Health Record. If you have any questions, please contact the author of this message via ITS. Dr. Ning Lock CHF is documented in the PMH and patient is maintained on home Lasix, please address clinical significance.. History/Risk Factors: Heart failure, CAD, Atrial Fib, [place], MVP Clinical Indicators: 10/03 1339 Admission VS/Pulse OX: HR 101, RR 28, B/P 113/71, Spo2 99% on 100% MV BNP: not ordered 01/22/19 Echocardiogram Results: Ef 55-60% 10/10 Chest X Ray: "Pleural effusions with atelectasis at the lung bases not significantly different than last exam. No heart failure seen." Treatment: Lasix 20 mg PO QD In your professional opinion, can you please clarify the acuity and type of CHF if known? Chronic Diastolic Heart Failure: Chronic Systolic & Diastolic Heart Failure: Unable to Determine Other, please specify (Last Revision: November 2017) chronic diastolic heart failure MTDD
--- NOTE | 2019-10-15 14:24 | PN ---
PROGRESS NOTE DATE OF SERVICE: 10/15/2019 She continues to have episodes of shortness of breath. PHYSICAL EXAMINATION: Respiratory rate is 18, pulse 76, temperature 98.1, blood pressure 123/62, O2 saturation on 3 L by nasal cannula is 93%. HEENT: Unremarkable. CHEST: Reveals decreased breath sounds with prolonged expiration. Expiratory wheeze. CARDIOVASCULAR: Reveals an S1, S2. ABDOMEN: Soft. There is no pedal edema. IMPRESSION: 1. Severe asthma with chronic obstructive pulmonary disease with acute exacerbation. 2. Acute respiratory failure. 3. Congestive heart failure. 4. Medical debility. At this point in time, increase her steroids to 60 mg IV push q.6 of Solu-Medrol. Continue BiPAP. Increase activity level. Consider discharge planning to inpatient rehab. Depending on how she does, we shall make further changes to her care. CHRIS / MONICA: [id number] /
[2019-10-15] MEDS: methylPREDNISolone SOD SUCCI 125 MG/2 ML VIAL IV SCH ×2 (16:57→23:11)
[2019-10-15 17:12] LABS: Glucose,Whole Blood 252 mg/dL (75-99)
[2019-10-15 20:28] LABS: Glucose,Whole Blood 173 mg/dL (75-99)
[2019-10-15] MEDS: MONTELUKAST 10 MG TAB PO SCH (20:36)
[2019-10-15] MEDS: PRAMIPEXOLE 0.5 MG TAB PO SCH (20:36)
[2019-10-15] MEDS: DILTIAZEM CD 240 MG CAP.ER.24H PO SCH (20:36)
[2019-10-16] MEDS: HYDROcodone/APAP 10-325MG 1 EACH TAB PO PRN ×3 (01:24→14:34)
[2019-10-16] MEDS: methylPREDNISolone SOD SUCCI 125 MG/2 ML VIAL IV SCH ×2 (05:50→12:53)
[2019-10-16 07:12] LABS: Glucose,Whole Blood 181 mg/dL (75-99)
[2019-10-16] MEDS: PANTOPRAZOLE 40 MG TABLET PO SCH (07:46)
[2019-10-16] MEDS: TAMSULOSIN 0.4 MG CAP.ER.24H PO SCH (07:46)
[2019-10-16] MEDS: HEPARIN SODIUM,PORCINE 5,000 UNIT/ML 1 ML VIAL SQ SCH ×2 (07:46→08:08)
[2019-10-16] MEDS: POTASSIUM CHLORIDE ER 10 MEQ TAB.ER.PRT PO SCH (07:46)
[2019-10-16] MEDS: INSULIN ASPART (NovoLOG) 100 UNIT/ML VIAL SQ SCH ×2 (07:47→12:52)
[2019-10-16] MEDS: BUDESONIDE 0.5 MG/2 ML NEBU INHALATION SCH ×2 (07:48→07:58)
[2019-10-16] MEDS: IPRATROPIUM-ALBUTEROL 3 ML NEB INHALATION SCH ×3 (07:48→16:02)
[2019-10-16] MEDS: METHIMAZOLE 5 MG TAB PO SCH (07:48)
[2019-10-16] MEDS: FUROSEMIDE 20 MG TAB PO SCH (07:48)
[2019-10-16 08:41] LABS: Basophils % (A) 0 %; Eosinophils % (A) 0 %; HCT 35.7 % (34.0-46.0); HGB 10.4 gm/dL (11.4-16.0); Hypochromasia Marked; Lymphocytes # (A) 0.2 k/uL (1.0-4.8); Lymphocytes % (A) 1 %; MCH 28.6 pg (25.0-35.0); MCHC 29.2 g/dL (31.0-37.0); MCV 97.8 fL (80.0-100.0); Mean Platelet Volume 8.5; Monocytes # (A) 0.6 k/uL (0-1.0); Monocytes % (A) 3 %; Neutrophils # (A) 18.2 k/uL (1.3-7.7); Neutrophils % (A) 95 %; Platelet Count 123 k/uL (150-450); RBC 3.65 m/uL (3.80-5.40); RDW 14.9 % (11.5-15.5); WBC 19.1 k/uL (3.8-10.6)
[2019-10-16 08:48] LABS: ALT 109 U/L (4-34); AST 62 U/L (14-36); African American GFR (CKD) >90 (>60 ml/min/1.73 sqM); Albumin 2.7 g/dL (3.5-5.0); Alkaline Phosphatase 150 U/L (38-126); Blood Urea Nitrogen 24 mg/dL (7-17); Calcium 8.3 mg/dL (8.4-10.2); Chloride 81 mmol/L (98-107); Glucose 193 mg/dL (74-99); Non-African American GFR(CKD) >90 (>60 ml/min/1.73 sqM); Potassium 4.5 mmol/L (3.5-5.1); Sodium 139 mmol/L (137-145); Total Bilirubin 0.8 mg/dL (0.2-1.3)
[2019-10-16 08:55] LABS: Anion Gap -1 mmol/L
[2019-10-16 09:00] LABS: Carbon Dioxide 59 mmol/L (22-30)
[2019-10-16 12:35] LABS: Glucose,Whole Blood 233 mg/dL (75-99)
--- NOTE | 2019-10-16 13:16 | P.DS ---
Providers Date of admission: 10/03/19 15:15 Expected date of discharge: 10/16/19 Attending physician: Ning Lock Consults: 10/03/19 15:15 Consult Physician Routine Consulting Provider: Jey Webster Consult Reason/Comments: COPD, influenza, hypoxic hypercapnic respiratory failure Do you want consulting provider notified?: Already Contacted 10/06/19 10:50 Consult Physician Routine Consulting Provider: Rosalio Weir Consult Reason/Comments: nephrolithiasis Do you want consulting provider notified?: Already Contacted 10/10/19 09:15 Consult Physician Routine Consulting Provider: Sharad Romano Consult Reason/Comments: medical debility Do you want consulting provider notified?: Yes Primary care physician: Ning Lock [facility] Course: Discharge diagnosis 1. Acute on chronic hypoxic and hypercapnic respiratory failure requiring mechanical ventilation. Patient is currently intubated and sedated. Patient has been extubated on 10/05/2019. CO2 remains elevated. Pulmonary services are following patient may be maintained on BiPAP at this time. She and has been accepted to inpatient rehab did discuss case with pulmonary DrNorman Webster patient may be discharged to inpatient rehab on prednisone 60 mg. No need for antibiotics 2. Unresponsiveness and acute respiratory failure possibly related to pain medication overdose. It is unclear exactly how much pain medication was taken. reports the patient may have taken extra pain medication for her back pain. Resolved 3. Influenza A positive. Patient started on Tamiflu. Patient has completed treatment 4. UTI: Continue Rocephin 1 g daily. Check urine culture 5. Sepsis present on admission patient's hypoxic and tachycardic. Blood culture showing no growth resolved 6. Elevated LFTs: Possibly related to patient's chronic hepatitis C. Patient also has a known liver lesion is stable. And is followed by GI service. 7. History of paroxysmal atrial fibrillation not on anticoagulation due to history of GI bleed 8. History of hyperthyroidism maintained on Tapazole 9. History of chronic low back pain 10. History of COPD and evidence of acute exacerbation. Patient having elevated CO2. Did discuss with pulmonary team. BiPAP ordered. Concerns per pulmonary regards to pain medication and respiratory status pain medications adjusted per pulmonary team. 11. History of kidney stone status post lithotripsy. urology services have been consulted. Per urology services KUB and ultrasound does not identify any hydronephrosis or stone. Per urology services no further intervention required continue treatment for UTI Hospital course This 64-year-old female with a known history of COPD, chronic hypoxic respiratory failure home O2 dependent, hypothyroidism, chronic back pain, paroxysmal atrial fibrillation, chronic hepatitis C infection, kidney stones. History was obtained from ER report and patient's . She is currently intubated and sedated. And in the ICU. Per her she had been complaining of some shortness of breath and cough over the last several days. She had also recently been at [facility] for COPD exacerbation and was discharged on steroids. He also reports that she was complaining of back pain and thought that it may be her kidney stone bothering her. He believes that she may have taken extra pain medications. The reports that he was trying to get his to the core to bring her to the hospital. While she was walking she started to sway and then fell to the ground and hit her head. He could not get her to wake up. He called EMS. She was found at home by EMS with oxygen saturation 70% and on 2 L nasal cannula. At that time she was minimally responsive. And had developed bag mask ventilation to transport. Patient was intubated on arrival to ER physician. She'll be admitted to the ICU. Dr. Raphael has been consulted for ICU and vent management. EKG normal sinus rhythm. Chest x-ray negative for any acute pulmonary process. Influenza A is positive. She has evidence of a UTI. She's given Rocephin in the ER and started on Tamiflu. Lactic acid elevated at 5.4. Drug screen is positive for opiates Oxycodone and benzodiazepine. On 10/05/2019 patient was seen and examined in the ICU she is alert and oriented 3 in no apparent distress she is still complaining of shortness of breath and complaining of severe pain in her back otherwise she denies any complaints, there is no fever or chills no headache or dizziness no chest pain no nausea or vomiting no abdominal pain no diarrhea no burning with urination no frequency or urgency no hematuria, patient is off BiPAP and is maintained on oxygen via nasal cannula 2 L/m On 10/06/2019 patient remains in the intensive care unit. Patient was extubated to 10/05/2019. Patient is alert and oriented 3 currently on 2 L nasal cannula. Patient concerned about kidney stone. Will consult urology services. Patient is still short of breath with activity. Patient denies chest pain. Patient denies nausea vomiting or diarrhea. Patient denies any urinary burning or frequency On 10/07/2019 patient is alert and oriented 3. Patient remains on 2 L nasal cannula. Patient reports improvement with her shortness of breath. Patient remains on IV steroids and Rocephin antibiotic. Also currently receiving Tamiflu. Urology services are following. At this time patient denies chest pain. Patient denies nausea vomiting or diarrhea. Patient denies any urinary burning or frequency On 10/08/2019 patient is alert and oriented 3. Patient maintained on 2 L nasal cannula. Patient does report improvement with shortness of breath. Patient remains on IV steroids and Rocephin antibiotic. Also currently getting Tamiflu for influenza A. No further surgical workup per urology services at this time patient complains of chronic back pain. Patient denies chest pain. Patient denies nausea vomiting or diarrhea. Patient denies any urinary burning or frequency On 10/09/2019 patient is alert and oriented 3. Discussed case with pulmonary team. Patient having elevated CO2 40 8P meds adjusted per pulmonary and BiPAP ordered. Patient is complaining of chronic pain. Patient maintained on home pain management regime. Concerns per pulmonary team in regards to oversedation and respiratory status. Patient denies any nausea vomiting or diarrhea. Patient denies any urinary burning or frequency On 10/10/2019 patient is alert and oriented 3. KERRIE Webster now covering for pulmonary. Dr. Wolfe has been consulted for constriction for possible inpatient rehab which patient is agreeable to highly encouraged. Patient CO2 elevated at 53. Will defer to pulmonary for possible BiPAP. At this time patient denies chest pain or shortness of breath. Patient denies nausea vomiting or diarrhea. Patient denies any urinary burning or frequency On 10/11/2019 patient was seen and examined in the ICU yesterday patient mental status deteriorated she was obtunded and was transferred to intensive care unit she was refusing to wear BiPAP and her CO2 level was very high. Today patient i s alert and oriented in no apparent distress nurse in ICU managed to have her use BiPAP machine for a couple of hours, at this time she denies any fever or chills no headache or dizziness no chest pain no nausea or vomiting no abdominal pain no diarrhea and no urinary symptoms. On 10/12/2019 patient was seen and examined in the ICU she is scheduled to be transferred out to medical floor today she is alert and oriented 3 in no apparent distress she is still complaining of cough and is complaining of shortness of breath with any activity she is complaining of generalized weakness and is complaining of back pain otherwise she denies any complaints there is no fever or chills no headache or dizziness no chest pain no nausea or vomiting no abdominal pain no diarrhea no burning with urination no frequency or urgency and no hematuria On 10/13/2019 patient is currently resting comfortably in bed with at bedside. She remains on BiPAP. Per nursing staff last night patient removed Bi PAP in the status very low. Patient was lethargic at that time. Explained to patient that she needs to keep the BiPAP on or she will likely requiring mechanical ventilation. Patient verbalized understanding. Patient is now alert and oriented and following commands. Pulmonary services are following. CO2 remains high at 53. Patient denies chest pain. Patient denies nausea vomiting or diarrhea. Patient denies any urinary burning or frequency On 10/14/2019 patient is currently alert and oriented resting comfortably in bed. remains at that site. Patient reports she does not like to wear the BiPAP. Educated the importance of wearing BiPAP in order to correct CO2 level. Patient did verbalize understanding. Also recommend that we continue discharge planning to rehab. Patient and are in agreement. Consult has been placed for Dr. Wolfe social work services are following. Patient remains on Solu-Medrol and DuoNeb breathing treatments. Patient denies chest pain. Patient denies nausea vomiting or diarrhea. Patient denies any urinary burning or frequency On 10/15/2019 patient is currently alert and oriented 3 resting comfortably in bed. is at bedside requesting Xanax be DC'd. Patient is in agreement will change Xanax to when necessary but explained that patient needs to be wearing BiPAP at night due to her elevated CO2 levels. Patient and did verbalize understanding. Pulmonary services are following On 10/16/2019 patient is alert and oriented 3. Patient's at bedside. Patient has been accepted to inpatient rehab at [facility]. Did discuss case with Dr. Webster patient's boner meat and agrees with discharge to inpatient rehab. Patient will be discharged on prednisone 60 mg daily with no taper at this time. Patient has completed adequate treatment for urinary tract infection. Patient has completed adequate treatment for influenza. I performed an examination of the patient and discussed their management with the Nurse Practitioner. I have reviewed the Nurse Practitioner's notes and agree with the documented findings and plan of care Patient Condition at Discharge: Stable Plan - Discharge Summary Discharge Rx Participant: Yes New Discharge Prescriptions: New Ipratropium-Albuterol Nebulize [Duoneb 0.5 mg-3 mg/3 ml Soln] 3 ml INHALATION RT-QID ml Ipratropium-Albuterol Nebulize [Duoneb 0.5 mg-3 mg/3 ml Soln] 3 ml INHALATION RT-Q4H PRN ml PRN Reason: Shortness Of Breath Or Wheezing predniSONE 60 mg PO DAILY #30 tab ALPRAZolam [Xanax] 0.25 mg PO BID PRN tab PRN Reason: Anxiety Continue Pramipexole [Mirapex] 0.5 mg PO HS Omeprazole 20 mg PO BID Montelukast [Singulair] 10 mg PO HS #30 tab Ipratropium-Albuterol Nebulize [Duoneb 0.5 mg-3 mg/3 ml Soln] 3 ml INHALATION RT-Q4H PRN PRN Reason: Shortness Of Breath Albuterol Inhaler [Ventolin Hfa Inhaler] 2 puff INHALATION RT-Q4H PRN PRN Reason: Shortness Of Breath Methimazole [Tapazole] 5 mg PO DAILY tab HYDROcodone/APAP 10-325MG [Masury 10-325] 1 tab PO Q6H PRN 3 Days #12 tab PRN Reason: Pain Diltiazem Cd [Cardizem CD] 240 mg PO HS Furosemide [Lasix] 20 mg PO DAILY 30 Days #30 tab Potassium Chloride ER [K-Dur 10] 10 meq PO DAILY 30 Days #30 tab Ondansetron [Zofran] 4 mg PO Q8HR PRN PRN Reason: Nausea Tamsulosin HCl [Flomax] 0.4 mg PO DAILY Docusate [Colace] 100 mg PO BID PRN PRN Reason: Constipation Discontinued ALPRAZolam [Xanax] 0.25 mg PO Q8HR PRN 3 Days #9 tab PRN Reason: Anxiety acetaZOLAMIDE [Diamox] 250 mg PO BID 30 Days #60 tab Phenazopyridine [Pyridium] 100 mg PO TID No Action predniSONE See Taper PO DAILY Discharge Medication List Pramipexole [Mirapex] 0.5 mg PO HS 09/28/15 [History] Omeprazole 20 mg PO BID 02/02/16 [History] Montelukast [Singulair] 10 mg PO HS #30 tab 02/12/17 [Rx] Ipratropium-Albuterol Nebulize [Duoneb 0.5 mg-3 mg/3 ml Soln] 3 ml INHALATION RT-Q4H PRN 05/31/18 [History] Albuterol Inhaler [Ventolin Hfa Inhaler] 2 puff INHALATION RT-Q4H PRN 11/09/18 [History] HYDROcodone/APAP 10-325MG [Masury 10-325] 1 tab PO Q6H PRN 3 Days #12 tab 03/28/19 [Rx] Methimazole [Tapazole] 5 mg PO DAILY tab 03/28/19 [Rx] Diltiazem Cd [Cardizem CD] 240 mg PO HS 05/07/19 [History] Furosemide [Lasix] 20 mg PO DAILY 30 Days #30 tab 05/19/19 [Rx] Potassium Chloride ER [K-Dur 10] 10 meq PO DAILY 30 Days #30 tab 05/19/19 [Rx] Docusate [Colace] 100 mg PO BID PRN 10/03/19 [History] Ondansetron [Zofran] 4 mg PO Q8HR PRN 10/03/19 [History] Tamsulosin HCl [Flomax] 0.4 mg PO DAILY 10/03/19 [History] predniSONE See Taper PO DAILY 10/03/19 [History] ALPRAZolam [Xanax] 0.25 mg PO BID PRN tab 10/16/19 [Rx] Ipratropium-Albuterol Nebulize [Duoneb 0.5 mg-3 mg/3 ml Soln] 3 ml INHALATION RT-Q4H PRN ml 10/16/19 [Rx] Ipratropium-Albuterol Nebulize [Duoneb 0.5 mg-3 mg/3 ml Soln] 3 ml INHALATION RT-QID ml 10/16/19 [Rx] predniSONE 60 mg PO DAILY #30 tab 10/16/19 [Rx] Follow up Appointment(s)/Referral(s): Don Longoria, [NON-STAFF] - As Needed Ning Lock MD [Primary Care Provider] - 1-2 days
[2019-10-16 14:50] VITALS: BP 137/63; RESP 20; TEMP 98.5
[2019-10-16 16:09] VITALS: PULSE 80
--- NOTE | 2019-10-17 09:31 | CDI ---
Documentation Clarification Form Date: 10/17/19 From: Monalisa Roger Phone: If you have a question about this query, please contact Jennifer Lew, Locomotive Pipe Fitter at [phone] between 8am and 5pm. Admit Date: 10/03/19 Discharge Date: 10/16/19 Patient Name: YAKOV FRAUSTO Visit Number: [id number] ATTENTION: The Clinical Documentation Specialists (CDI) and [facility] Coding Staff appreciate your assistance in clarifying documentation. Please respond to the clarification below the line at the bottom and electronically sign. The CDI & [facility] Coding staff will review the response and follow-up if needed. Please note: Queries are made part of the Legal Health Record. If you have any questions, please contact the author of this message via ITS. Dear Dr. Jey Webster, Severe asthma with chronic obstructive pulmonary disease with acute exacerbation is documented in the your consult and your PNs on 10/13 & 10/14. History/risk factors: influenza A, acute on chronic hypoxic & hypercapnia respiratory failure, metabolic encephalopathy, sepsis, COPD, hx of smoking Clinical Indicators: SOB, using some accessory muscles of respiration, Prolonged exhalation with end-expiratory wheeze. CXR: 10/03-no acute pulmonary process, 10/04-worsening left upper and right lower lobe infiltrates Vital Signs: R-18, P-83, T-997.7, BP-137/74, O2 on NC 94%. Treatment: MV, BIPAP, Nebulizer, Medication: IV antibiotics, Tamiflu, IV Solu-Medrol, Pulmicort In your professional opinion, can you please further specify the following, if known? With Acute Exacerbation Status asthmaticus Other, please specify ___ Unable to determine Severity Mild intermittent Mild persistent Moderate persistent Severe persistent Other, please specify ____ Unable to determine MTDD
--- NOTE | 2019-10-17 09:46 | CDI ---
Documentation Clarification Form Date: 10/17/19 From: Monalisa Roger Phone: If you have a question about this query, please contact Jennifer Lew, Pattern Cleaner at [phone] between 8am and 5pm. Admit Date: 10/03/19 Discharge Date: 10/16/19 Patient Name: YAKOV FRAUSTO Visit Number: [id number] ATTENTION: The Clinical Documentation Specialists (CDI) and [facility] Coding Staff appreciate your assistance in clarifying documentation. Please respond to the clarification below the line at the bottom and electronically sign. The CDI & [facility] Coding staff will review the response and follow-up if needed. Please note: Queries are made part of the Legal Health Record. If you have any questions, please contact the author of this message via ITS. Dear Dr. Ning Lock, Your patient has the documented diagnosis of sepsis and influenza A in your documentation. A relationship between diagnoses cannot be assumed unless documented as such by the attending physician. In order to capture the severity of condition; please document the relationship, if any, between these diagnoses. History/Risk Factors: influenza A, acute on chronic hypoxic & hypercapnia respiratory failure, metabolic encephalopathy, sepsis, COPD, hx of smoking Clinical Indicators: lactic acid-5.4, lactic ac sepsis rflx-y, WBC-8.0, Neutrophils-8.0, Influenza A-positive Treatment:IV antibiotics, Tamiflu, IV Solu-Medrol, Pulmicort, MV, BIPAP, Nebulizer Please clarify and document your clinical opinion in the progress notes and discharge summary if any relationship (due to, caused by, secondary to) exists between these two diagnoses. Please include clinical findings supporting your diagnosis. Sepsis due to Influenza Sepsis source not identified Other explanation of clinical findings (please specify) Unable to determine (no explanation for clinical findings) sepsis due to influenza MTDD
== END 2019-10-16 16:30 | DRG 871 ==
LOC: EC 13:34 → 2SICU 15:15 → 4SSUR 10-07 19:54 → 2SICU 10-11 00:33 → 4SSUR 10-12 15:03 → 5NMEDONC 10-13 14:09
PROVIDERS: ADMIT Internal Medicine; ATTEND Internal Medicine
PROC: 0BH17EZ Insertion of Endotracheal Airway into Trachea, Via Natural or Artificial Opening (ICD-10-PCS; principal; 2019-10-03)
PROC: 5A1935Z Respiratory Ventilation, Less than 24 Consecutive Hours (ICD-10-PCS; principal; 2019-10-03)
PROC: 0D9670Z Drainage of Stomach with Drainage Device, Via Natural or Artificial Opening (ICD-10-PCS; 2019-10-03)
PROC: 02HV33Z Insertion of Infusion Device into Superior Vena Cava, Percutaneous Approach (ICD-10-PCS; 2019-10-03)
PROC: 4A133J1 Monitoring of Arterial Pulse, Peripheral, Percutaneous Approach (ICD-10-PCS; 2019-10-03)
PROC: 4A133B1 Monitoring of Arterial Pressure, Peripheral, Percutaneous Approach (ICD-10-PCS; 2019-10-03)
PROC: 03HY32Z Insertion of Monitoring Device into Upper Artery, Percutaneous Approach (ICD-10-PCS; 2019-10-03)
PROC: 5A09557 Assistance with Respiratory Ventilation, Greater than 96 Consecutive Hours, Continuous Positive Airway Pressure (ICD-10-PCS; 2019-10-04)
DX: A41.89 Other specified sepsis (principal); J96.21 Acute and chronic respiratory failure with hypoxia; G93.41 Metabolic encephalopathy; J10.01 Influenza due to other identified influenza virus with the same other identified influenza virus pneumonia; J96.22 Acute and chronic respiratory failure with hypercapnia; I50.32 Chronic diastolic (congestive) heart failure; N39.0 Urinary tract infection, site not specified; N20.2 Calculus of kidney with calculus of ureter; E44.0 Moderate protein-calorie malnutrition; J98.11 Atelectasis; J44.1 Chronic obstructive pulmonary disease with (acute) exacerbation; J45.901 Unspecified asthma with (acute) exacerbation; Z68.1 Body mass index [BMI] 19.9 or less, adult; J90 Pleural effusion, not elsewhere classified; D63.8 Anemia in other chronic diseases classified elsewhere; I48.0 Paroxysmal atrial fibrillation; I11.0 Hypertensive heart disease with heart failure; J10.1 Influenza due to other identified influenza virus with other respiratory manifestations; J20.8 Acute bronchitis due to other specified organisms; J32.9 Chronic sinusitis, unspecified; I25.10 Atherosclerotic heart disease of native coronary artery without angina pectoris; B18.2 Chronic viral hepatitis C; E05.90 Thyrotoxicosis, unspecified without thyrotoxic crisis or storm; I34.0 Nonrheumatic mitral (valve) insufficiency; I34.1 Nonrheumatic mitral (valve) prolapse; K21.9 Gastro-esophageal reflux disease without esophagitis; M41.9 Scoliosis, unspecified; M19.90 Unspecified osteoarthritis, unspecified site; M81.0 Age-related osteoporosis without current pathological fracture; R91.8 Other nonspecific abnormal finding of lung field; F43.10 Post-traumatic stress disorder, unspecified; F41.1 Generalized anxiety disorder; G89.29 Other chronic pain; M54.5 Low back pain; K58.9 Irritable bowel syndrome, unspecified; I25.2 Old myocardial infarction; R32 Unspecified urinary incontinence; Z99.81 Dependence on supplemental oxygen; Z79.899 Other long term (current) drug therapy; Z87.19 Personal history of other diseases of the digestive system; Z85.41 Personal history of malignant neoplasm of cervix uteri; Z87.81 Personal history of (healed) traumatic fracture; Z98.891 History of uterine scar from previous surgery; Z86.19 Personal history of other infectious and parasitic diseases; Z90.49 Acquired absence of other specified parts of digestive tract; Z98.890 Other specified postprocedural states; Z87.891 Personal history of nicotine dependence; Z87.442 Personal history of urinary calculi; Z86.010 Personal history of colon polyps; Z98.49 Cataract extraction status, unspecified eye; Z88.1 Allergy status to other antibiotic agents; Z88.2 Allergy status to sulfonamides; Z88.8 Allergy status to other drugs, medicaments and biological substances; W19.XXXA Unspecified fall, initial encounter; Y93.01 Activity, walking, marching and hiking; Z82.49 Family history of ischemic heart disease and other diseases of the circulatory system; Z80.3 Family history of malignant neoplasm of breast; Z80.8 Family history of malignant neoplasm of other organs or systems; Z80.7 Family history of other malignant neoplasms of lymphoid, hematopoietic and related tissues; Z80.0 Family history of malignant neoplasm of digestive organs; Z80.1 Family history of malignant neoplasm of trachea, bronchus and lung; Z81.1 Family history of alcohol abuse and dependence; Z83.79 Family history of other diseases of the digestive system; Z83.6 Family history of other diseases of the respiratory system
CPT/HCPCS: 31500; 36415; 36600; 70450; 71045; 74018; 76770; 80048; 80053; 80306; 81001; 82803; 82805; 83605; 83735; 84484; 85025; 85610; 85730; 87040; 87070; 87086; 87205; 87502; 93005; 94002; 94003; 94640; 94660; 94760; 96361; 96365; 96367; 96374; 99291